=== PATIENT | female | born 1950 | race Caucasian/White ===

== ENCOUNTER → 2017-11-09 09:17 | Outpatient (CLI) | payer MEDICARE, SELFPAY ==
--- NOTE | 2017-11-09 09:26 | RAD_ITS ---
STUDY: X-RAY - PARANASAL SINUSES REASON FOR EXAM: Female, 67 years old. Sinus pressure x1 month, headaches TECHNIQUE: 4 view(s) of the paranasal sinuses were obtained. COMPARISON: None. FINDINGS: There is mucosal thickening of the right maxillary sinus and near complete opacification of the left maxillary sinus. Normal visualized facial bones. The soft tissue structures are unremarkable. RAD/Sinuses min 3 Views IMPRESSION: Bilateral chronic maxillary sinusitis. Electronically Signed: Leo Beltran MD at 20:10 EDT , Service support ,
== END ==
PROVIDERS: Family Provider Family Medicine; PCP Family Medicine
DX: J32.9 Chronic sinusitis, unspecified (principal)
CPT/HCPCS: 70220

== ENCOUNTER → 2017-11-18 15:50 | Outpatient (CLI) | payer MEDICARE, SELFPAY | PROVIDERS: Family Provider Family Medicine; PCP Family Medicine; Visit Provider Otolaryngology | DX: J32.9 Chronic sinusitis, unspecified (principal) | CPT/HCPCS: 87070; 87205 ==

== ENCOUNTER → 2017-11-23 13:16 | Outpatient (CLI) | payer MEDICARE, SELFPAY | PROVIDERS: Family Provider Family Medicine; PCP Family Medicine; Visit Provider Otolaryngology | DX: J32.9 Chronic sinusitis, unspecified (principal) | CPT/HCPCS: 70486 ==

== ENCOUNTER → 2017-11-24 16:35 | Outpatient (CLI) | payer MEDICARE, SELFPAY | PROVIDERS: Family Provider Family Medicine; PCP Family Medicine; Visit Provider Otolaryngology Otolaryngology/Facial Plastic Surgery | DX: J01.90 Acute sinusitis, unspecified (principal) | CPT/HCPCS: 87070; 87205 ==

== ENCOUNTER → 2018-03-02 11:27 | Outpatient (CLI) | payer MEDICARE, SELFPAY ==
[2018-03-02 14:32] LABS: BUN 15 mg/dL (7-18); Glucose 79 mg/dL (74-106)
[2018-03-02 14:33] LABS: Anion Gap 10 (5-15); BUN/Creat Ratio 18.6 RATIO (10-20); Calcium,Total 8.9 mg/dL (8.5-10.1); Chloride 105 mmol/L (98-107); Cholesterol 251 mg/dL (200); EST Glomerular Filtration Rate 76 mL/min (>60); Est Glom Filt Rate - Afr Amer 92 mL/min (>60); High Density Lipoprotein 41 mg/dL; Potassium 4.3 mmol/L (3.5-5.1); Sodium Level 142 mmol/L (136-145); Triglycerides 298 mg/dL; Very Low Density Lipoprotein 60 mg/dL (5-40)
== END ==
PROVIDERS: Family Provider Family Medicine; PCP Family Medicine; Visit Provider Family Medicine
DX: I10 Essential (primary) hypertension (principal)
CPT/HCPCS: 36415; 80048; 80061

== ENCOUNTER → 2018-06-09 10:12 | Outpatient (CLI) | payer MEDICARE, SELFPAY ==
--- NOTE | 2018-06-09 10:16 | BI_ITS ---
MAMMOGRAPHY - BILATERAL SCREENING REASON FOR EXAM: Female, 67 years old. Routine annual screening examination. PERTINENT HISTORY: Non-contributory. TECHNIQUE: Digital bilateral breast tracy (3D mammographic acquisition) in the CC and MLO projections. 2-D mediolateral oblique (MLO) and craniocaudad (CC) views of both breasts were obtained. CAD: Full Field Digital Mammography with Computer Added Detection was performed. COMPARISON: Comparison is made with prior study dated March 09, 2017 and August 23, 2015. FINDINGS: Breast Composition: The breasts are extremely dense, which lowers the sensitivity of mammography. There are no dominant masses or suspicious calcifications. Stable small bilateral axillary lymph nodes. No other significant abnormalities are identified. There has been no significant change since the prior study. BI/SCREENING MAMM (CAD), BILAT IMPRESSION: Stable bilateral screening mammogram. Yearly follow-up mammogram recommended. (A) ASSESSMENT CATEGORY: BIRADS Category 2: Benign. A letter regarding these results will be sent to the patient by the facility within 30 days. Approximately 10% of breast cancers are not detected by mammography. A normal mammogram should not delay biopsy of a clinically suspicious abnormality. [id number] Electronically Signed: Nishant Lim, at 13:44 EST , Service support ,
--- NOTE | 2018-06-09 10:20 | BD_ITS ---
STUDY: DUAL ENERGY X-RAY ABSORPTIOMETRY / DXA REASON FOR EXAM: Female, 67 years old. Early menopause. No loss of height. TECHNIQUE: Bone Mineral Density (BMD) measurements of lumbar spine and bilateral hips were obtained. COMPARISON: Comparison is made with prior study dated August 23, 2015. FINDINGS: Lumbar Spine (L1-L4): g/cm2 (1.248) / T-score (0.7) / Z-score (2.3) Findings are suggestive of normal bone density with a low fracture risk. Left Femur Total: g/cm2 (1.268) / T-score (2.1) / Z-score (3.3) Left Femoral Neck: g/cm2 (1.152) / T-score (0.8) / Z-score (2.4) Right Femur Total: g/cm2 (1.206) / T-score (1.) / Z-score (2.9) Right Femoral Neck: g/cm2 (1.072) / T-score (0.2) / Z-score (1.8) The T-Scores on the most recent prior examination were: Lumbar Spine (L1-L4): There has been improvement of bone density since the previous examination. Left Femur Total: which represents an improvement of 3.6%. Right Femur Total: which represents a worsening of 0.9%. BD/Dexa Bone Density Study IMPRESSION: The patient is considered normal as outlined below according to World Noah Organization (WHO) criteria with a low fracture risk. There has been improvement of bone density since the previous examination. Reference Information: The T-score is the number of standard deviations above or below the standard which is normal for young adults at their peak bone mineral density. The World Health Organization (WHO) interprets the T-scores as follows: Above -1 Normal bone density Between -1 and -2.5 Osteopenia Equal to / or below -2.5 Osteoporosis As a practical clinical guideline, osteopenia may be graded as follows: Mild -1 through -1.5 Moderate -1.6 through -2.0 Severe -2.1 through -2.4 The Z-score is the number of standard deviations above or below age-matched controls. A Z-score of less than -1.5 would be considered abnormal. References: 1. NIH Osteoporosis and Related Bone Diseases http://www.osteo.org 2. International Society for Clinical Densitometry http://www.iscd.org 3. National Osteoporosis Foundation http://www.nof.org Electronically Signed: Nishant Lim, at 9:49 EST , Service support ,
== END ==
PROVIDERS: Family Provider Family Medicine; PCP Family Medicine; Referring Provider Family Medicine; Visit Provider Family Medicine
DX: Z12.31 Encounter for screening mammogram for malignant neoplasm of breast (principal); N95.9 Unspecified menopausal and perimenopausal disorder
CPT/HCPCS: 77063; 77067; 77080

== ENCOUNTER → 2018-12-15 10:11 | Outpatient (CLI) | payer MEDICARE, SELFPAY ==
[2018-12-15 12:57] LABS: Anion Gap 5 (5-15); BUN 11 mg/dL (7-18); BUN/Creat Ratio 13.6 RATIO (10-20); Calcium,Total 8.6 mg/dL (8.5-10.1); Chloride 109 mmol/L (98-107); Creatinine, Serum 0.81 mg/dL (0.55-1.02); EST Glomerular Filtration Rate 75 mL/min (>60); Est Glom Filt Rate - Afr Amer 91 mL/min (>60); Glucose 73 mg/dL (74-106); Sodium Level 142 mmol/L (136-145)
== END ==
PROVIDERS: Family Provider Family Medicine; PCP Family Medicine; Referring Provider Family Medicine; Visit Provider Family Medicine
DX: L65.9 Nonscarring hair loss, unspecified (principal); I10 Essential (primary) hypertension
CPT/HCPCS: 36415; 80048; 84443

== ENCOUNTER → 2019-04-11 10:30 | Outpatient (CLI) | payer MEDICARE, SELFPAY ==
[2019-04-11 12:32] LABS: Anion Gap 5 (5-15); BUN 14 mg/dL (7-18); BUN/Creat Ratio 15.7 RATIO (10-20); Chloride 106 mmol/L (98-107); Creatinine, Serum 0.89 mg/dL (0.55-1.02); EST Glomerular Filtration Rate 67 mL/min (>60); Est Glom Filt Rate - Afr Amer 81 mL/min (>60); Glucose 84 mg/dL (74-106); Potassium 4.3 mmol/L (3.5-5.1); Prolactin 6.5 ng/mL; Sodium Level 142 mmol/L (136-145); Thyroid Stim Hormone (TSH) 2.58 uIU/mL (0.358-3.74)
== END ==
PROVIDERS: Family Provider Family Medicine; PCP Family Medicine; Visit Provider Family Medicine
DX: I10 Essential (primary) hypertension (principal); L65.9 Nonscarring hair loss, unspecified
CPT/HCPCS: 36415; 80048; 84146; 84443

== ENCOUNTER → 2019-06-10 08:20 | Outpatient (CLI) | payer MEDICARE, SELFPAY ==
--- NOTE | 2019-06-10 08:26 | BI_ITS ---
MAMMOGRAPHY - BILATERAL SCREENING REASON FOR EXAM: Female, 68 years old. Routine annual screening examination. PERTINENT HISTORY: No family history of breast cancer TECHNIQUE: Digital bilateral breast apurva (3D mammographic acquisition) in the CC and MLO projections. 2-D mediolateral oblique (MLO) and craniocaudad (CC) views of both breasts were obtained. CAD: Full Field Digital Mammography with Computer Added Detection was performed. COMPARISON: None. FINDINGS: Breast Composition: Extremely dense There are no dominant masses or suspicious calcifications. No other significant abnormalities are identified. BI/SCREEN MAMM (CAD) W/APURVA BILAT IMPRESSION: Stable bilateral screening mammogram. Yearly follow-up mammogram recommended. (A) ASSESSMENT CATEGORY: BIRADS Category 1: Negative. A letter regarding these results will be sent to the patient by the facility within 30 days. Approximately 10% of breast cancers are not detected by mammography. A normal mammogram should not delay biopsy of a clinically suspicious abnormality. [id number] Electronically Signed: Neal Rios, at 15:44 EST Tel , Service support ,
== END ==
PROVIDERS: Family Provider Family Medicine; PCP Family Medicine; Referring Provider Family Medicine; Visit Provider Family Medicine
DX: Z12.31 Encounter for screening mammogram for malignant neoplasm of breast (principal)
CPT/HCPCS: 77063; 77067

== ENCOUNTER → 2019-08-17 15:26 | Outpatient (CLI) | payer MEDICARE, SELFPAY | PROVIDERS: PCP Family Medicine; Referring Provider Family Medicine; Visit Provider Family Medicine | DX: R39.15 Urgency of urination (principal) | CPT/HCPCS: 87086; 87088 ==

== ENCOUNTER → 2019-09-22 | Outpatient (CLI) | payer MEDICARE, SELFPAY | END | disposition home or self-care (01) | LOC: LABSPEC 10:54 | PROVIDERS: PCP Family Medicine; Referring Provider Family Medicine; Visit Provider Family Medicine | DX: R39.15 Urgency of urination (principal) | CPT/HCPCS: 87086; 87088 ==

== ENCOUNTER → 2019-10-31 15:16 | Outpatient (CLI) | payer MEDICARE, SELFPAY | PROVIDERS: PCP Family Medicine; Referring Provider Otolaryngology Otolaryngology/Facial Plastic Surgery; Visit Provider Otolaryngology Otolaryngology/Facial Plastic Surgery | DX: J32.9 Chronic sinusitis, unspecified (principal) | CPT/HCPCS: 87070; 87205 ==

== ENCOUNTER → 2020-01-05 11:15 | Outpatient (CLI) | payer MEDICARE, SELFPAY ==
[2020-01-05 13:09] LABS: Absolute Lymphocyte Count 3.17 X10^3/uL (0.83-4.51); Basophil# 0.05 X10^3/uL; Basophil% 0.6 % (0-1); Eosinophils% 4.8 % (0-5); Hematocrit 38.3 % (37-47); Hemoglobin 12.1 g/dL (12.0-15.0); Lymphocyte # 3.17 X10^3/ul (4.0); Lymphocyte % 37.8 % (19-41); Mean Corp Hgb Conc 31.6 g/dL (32-36); Mean Corpuscular Hgb 28.3 pg (27.0-32.0); Mean Corpuscular Volume 89.5 fL (81-99); Mean Platelet Vol. 10.8 fl (6.2-12.0); Monocyte# 0.76 X10^3/uL; Monocyte% 9.1 % (0-10); NRBC Flagged by Analyzer 0 % (0-5); Neutrophil # 3.98 X10^3/uL (2.7-7.7); Neutrophil % 47.5 % (47-70); Platelet Count 329 K/mm3 (150-450); RBC Distribution Width CV 13.9 % (11.6-14.6); RBC Distribution Width SD 45.3 fl (35.1-43.9); Red Blood Count 4.28 M/mm3 (4.2-5.4); White Blood Count 8.4 K/mm3 (4.4-11.0)
[2020-01-05 13:13] LABS: Erythrocyte Sedimentation Rate 7 mm/hr (0-30)
[2020-01-05 13:49] LABS: Anion Gap 5 (5-15); BUN 13 mg/dL (7-18); BUN/Creat Ratio 13.7 RATIO (10-20); Calcium,Total 9.1 mg/dL (8.5-10.1); Chloride 108 mmol/L (98-107); Cholesterol 300 mg/dL (200); Creatinine, Serum 0.95 mg/dL (0.55-1.02); EST Glomerular Filtration Rate 62 mL/min (>60); Est Glom Filt Rate - Afr Amer 75 mL/min (>60); Glucose 73 mg/dL (74-106); High Density Lipoprotein 36 mg/dL; Potassium 3.9 mmol/L (3.5-5.1); Sodium Level 142 mmol/L (136-145); Thyroid Stim Hormone (TSH) 2.74 uIU/mL (0.358-3.74); Triglycerides 359 mg/dL; Very Low Density Lipoprotein 72 mg/dL (5-40)
== END ==
PROVIDERS: PCP Family Medicine; Referring Provider Family Medicine; Visit Provider Family Medicine
DX: R61 Generalized hyperhidrosis (principal); E78.00 Pure hypercholesterolemia, unspecified; I10 Essential (primary) hypertension
CPT/HCPCS: 36415; 80048; 80061; 84443; 85025; 85652

== ENCOUNTER → 2020-01-27 | Outpatient (CLI) | payer MEDICARE, SELFPAY | END | disposition home or self-care (01) | LOC: LABSPEC 10:54 | PROVIDERS: PCP Family Medicine; Referring Provider Family Medicine; Visit Provider Family Medicine | DX: J20.9 Acute bronchitis, unspecified (principal) | CPT/HCPCS: 87635; U0003 ==

== ENCOUNTER → 2020-02-15 17:17 | Outpatient (CLI) | payer MEDICARE, SELFPAY | PROVIDERS: PCP Family Medicine; Referring Provider Otolaryngology; Visit Provider Otolaryngology | DX: U07.1 COVID-19 (principal) | CPT/HCPCS: 87635; C9803; U0003 ==

== ENCOUNTER → 2020-07-31 11:30 | Outpatient (CLI) | payer MEDICARE, SELFPAY ==
[2020-07-31 16:18] LABS: AST(SGOT) 25 U/L (15-37); Alanine Aminotransfer ALT/SGPT 23 U/L (13-56); Cholesterol 243 mg/dL (200); High Density Lipoprotein 45 mg/dL; Triglycerides 271 mg/dL; Very Low Density Lipoprotein 54 mg/dL (5-40)
== END ==
PROVIDERS: PCP Family Medicine; Visit Provider Family Medicine
DX: E78.5 Hyperlipidemia, unspecified (principal)
CPT/HCPCS: 36415; 80061; 84450; 84460

== ENCOUNTER → 2020-08-29 08:14 | Outpatient (CLI) | payer MEDICARE, SELFPAY ==
--- NOTE | 2020-08-29 08:17 | BI_ITS ---
MAMMOGRAPHY - BILATERAL SCREENING 3-D TOMOSYNTHESIS REASON FOR EXAM: Female, 69 years old. Routine screening PERTINENT HISTORY: No significant family history. TECHNIQUE: 2-D mammograms and 3-D Tomosynthesis of the breast (s) were performed. CAD was performed. COMPARISON: 06/10/19 FINDINGS: The breast composition is heterogeneously dense that can obscure small breast masses. Scattered benign calcifications are seen. No dense spiculated masses or suspicious microcalcifications are identified. No architectural distortion is identified. There is no skin thickening or retraction. There has been no significant change since the prior study. BI/SCRN MAMM (CAD)W/APURVA BILAT IMPRESSION: No mammographic signs of malignancy. Routine yearly mammograms recommended. ASSESSMENT CATEGORY: BIRADS Category 2: Benign. A letter regarding these results will be sent to the patient by the facility within 30 days. FOLLOW UP RECOMMENDATION: Yearly follow up mammogram recommended. (A) Approximately 10% of breast cancers are not detected by mammography. A normal mammogram should not delay biopsy of a clinically suspicious abnormality. Electronically Signed: Ciaran Griffin MD at 9:40 EDT , Service support ,
== END ==
PROVIDERS: PCP Family Medicine; Referring Provider Family Medicine; Visit Provider Family Medicine
DX: Z12.31 Encounter for screening mammogram for malignant neoplasm of breast (principal)
CPT/HCPCS: 77063; 77067

== ENCOUNTER → 2020-11-07 16:39 | Outpatient (CLI) | payer MEDICARE, SELFPAY ==
[2020-11-07 18:14] LABS: AST(SGOT) 21 U/L (15-37); Alanine Aminotransfer ALT/SGPT 25 U/L (13-56); Cholesterol 183 mg/dL (200); High Density Lipoprotein 45 mg/dL; Triglycerides 260 mg/dL; Very Low Density Lipoprotein 52 mg/dL (5-40)
== END ==
PROVIDERS: PCP Family Medicine; Referring Provider Family Medicine; Visit Provider Family Medicine
DX: E78.5 Hyperlipidemia, unspecified (principal)
CPT/HCPCS: 36415; 80061; 84450; 84460

== ENCOUNTER → 2021-01-03 16:24 | Outpatient (CLI) | payer MEDICARE, SELFPAY | PROVIDERS: PCP Family Medicine; Referring Provider Family Medicine; Visit Provider Family Medicine | DX: Z20.822 Contact with and (suspected) exposure to COVID-19 (principal) | CPT/HCPCS: 87635; U0005; U0003 ==

== ENCOUNTER → 2021-12-10 | Outpatient (CLI) | payer MEDICARE, SELFPAY ==
--- NOTE | 2021-12-10 10:07 | BI_ITS ---
MAMMOGRAPHY - BILATERAL SCREENING REASON FOR EXAM: Female, 71 years old. Routine annual screening examination. PERTINENT HISTORY: Non-contributory. TECHNIQUE: Digital bilateral breast apurva (3D mammographic acquisition) in the CC and MLO projections. 2-D mediolateral oblique (MLO) and craniocaudad (CC) views of both breasts were obtained. CAD: Full Field Digital Mammography with Computer Added Detection was performed. COMPARISON: Comparison is made with prior study dated 08/29/2020 and 06/10/2019. FINDINGS: Breast Composition: The breasts are extremely dense, which lowers the sensitivity of mammography. There are no dominant masses or suspicious calcifications. Stable benign appearing bilateral axillary lymph nodes. No other significant abnormalities are identified. There has been no significant change since the prior study. BI/SCRN MAMM (CAD)W/APURVA BILAT IMPRESSION: Stable bilateral screening mammogram. Yearly follow-up mammogram recommended. (A) ASSESSMENT CATEGORY: BIRADS Category 2: Benign. A letter regarding these results will be sent to the patient by the facility within 30 days. Approximately 10% of breast cancers are not detected by mammography. A normal mammogram should not delay biopsy of a clinically suspicious abnormality. [id number] Electronically Signed: Nishant Lim MD at 11:02 EDT ,
--- NOTE | 2021-12-10 10:09 | BD_ITS ---
STUDY: DUAL ENERGY X-RAY ABSORPTIOMETRY / DXA REASON FOR EXAM: Female, 71 years old. V76.12ScreeningBONE DENSITY REASON FOR EXAM TECHNIQUE: Bone Mineral Density (BMD) measurements of lumbar spine and bilateral hips were obtained. COMPARISON: Comparison is made with prior study dated 06/09/2018. FINDINGS: Lumbar Spine (L1-L4): g/cm2 (1.127) / T-score (1.0) / Z-score (3.1) Findings are suggestive of normal bone density with a low fracture risk. Left Femur Total: g/cm2 (1.116) / T-score (1.4) / Z-score (2.9) Left Femoral Neck: g/cm2 (1.006) / T-score (1.4) / Z-score (3.2) Right Femur Total: g/cm2 (1.120) / T-score (1.5) / Z-score (3.0) Right Femoral Neck: g/cm2 (0.916) / T-score (0.6) / Z-score (2.4) The T-Scores on the most recent prior examination were: Lumbar Spine (L1-L4): There has been worsening of bone density since the previous examination. Left Femur Total: which represents a worsening of 6.6%. Right Femur Total: which represents a worsening of 1.3%. BD/Dexa Bone Density Study IMPRESSION: The patient is considered normal as outlined below according to World [employer] Organization (WHO) criteria with a low fracture risk. There has been worsening of bone density since the previous examination. Reference Information: The T-score is the number of standard deviations above or below the standard which is normal for young adults at their peak bone mineral density. The World Health Organization (WHO) interprets the T-scores as follows: Above -1 Normal bone density Between -1 and -2.5 Osteopenia Equal to / or below -2.5 Osteoporosis As a practical clinical guideline, osteopenia may be graded as follows: Mild -1 through -1.5 Moderate -1.6 through -2.0 Severe -2.1 through -2.4 The Z-score is the number of standard deviations above or below age-matched controls. A Z-score of less than -1.5 would be considered abnormal. References: 1. NIH Osteoporosis and Related Bone Diseases www osteo.org 2. International Society for Clinical Densitometry www iscd.org 3. National Osteoporosis Foundation www nof.org Electronically Signed: Nishant Lim MD at 12:34 EDT ,
== END | disposition home or self-care (01) ==
LOC: OPBD 10:02
PROVIDERS: PCP Family Medicine; Visit Provider Family Medicine
DX: Z12.31 Encounter for screening mammogram for malignant neoplasm of breast (principal); Z13.820 Encounter for screening for osteoporosis; M81.0 Age-related osteoporosis without current pathological fracture
CPT/HCPCS: 77063; 77067; 77080

== ENCOUNTER 2022-01-10 16:09 | Observation (INO) | payer MEDICARE, SELFPAY ==
[2022-01-10 16:10] VITALS: BP 178/74; PULSE 78; RESP 18; TEMP 36.3; O2SAT 97; BMI 30.8
--- NOTE | 2022-01-10 16:55 | EKG12_ITS ---
Test Reason : Blood Pressure : / mmHG Vent. Rate : 069 BPM Atrial Rate : 069 BPM P-R Int : 180 ms QRS Dur : 078 ms QT Int : 380 ms P-R-T Axes : 066 048 107 degrees QTc Int : 407 ms Normal sinus rhythm ST & T wave abnormality, consider lateral ischemia Abnormal ECG Confirmed by CUAUHTEMOC ROSENTHAL, JARVIS ([id number]), visual effects editor REGINALD HARO ([id number]) on 01/13/2022 10:10:48 AM Referred By: DARLIN Confirmed By:JARVIS POSADAS MD
[2022-01-10 16:57] VITALS: BP 164/66; PULSE 72; RESP 18; O2SAT 97; BMI 31.5
--- NOTE | 2022-01-10 16:58 | CT_ITS ---
We are attempting to reach an attending provider to discuss findings. An addendum with communication details will be sent when the communication is complete. EXAM: CT ANGIOGRAPHY HEAD AND NECK WITH INTRAVENOUS CONTRAST CLINICAL INDICATION: Neuro deficit, acute, stroke suspected TECHNIQUE: [place] [facility] [place]/head and neck CT angiography protocol performed with intravenous contrast. This CT exam was performed using one or more of the following dose reduction techniques: automated exposure control, adjustment of the mA and/or kV according to patient size, and/or use of iterative reconstruction technique. This report was created using [employer] report [employer] technology. MIP reconstructed images were created and reviewed. CONTRAST: IV 100mL [id number]-[id number] RADIATION DOSE: CTDIvol = 26.74 mGy, DLP = 1478.39 mGy-cm COMPARISON: 8..15 FINDINGS: HEAD: RIGHT ANTERIOR CEREBRAL ARTERY: Unremarkable. No significant stenosis at the visualized segments. Anterior communicating artery is present. No aneurysm. RIGHT MIDDLE CEREBRAL ARTERY: There is severe narrowing of the right M2 branch with > than 75% cross sectional diameter stenosis. ALL ABOVE CRITERIA BY NASCET. No aneurysm. RIGHT POSTERIOR CEREBRAL ARTERY: Unremarkable. No occlusion or significant stenosis. No aneurysm. RIGHT INTRACRANIAL INTERNAL CAROTID ARTERY: See below. RIGHT INTRACRANIAL VERTEBRAL ARTERY: Unremarkable. No significant stenosis. No dissection or occlusion. LEFT ANTERIOR CEREBRAL ARTERY: Unremarkable. No significant stenosis at the visualized segments. No aneurysm. LEFT MIDDLE CEREBRAL ARTERY: There is diffuse narrowing of the left M1 branch with a stenosis of >70%. ALL ABOVE CRITERIA BY NASCET. No aneurysm. LEFT POSTERIOR CEREBRAL ARTERY: Unremarkable. No occlusion or significant stenosis. No aneurysm. LEFT INTRACRANIAL INTERNAL CAROTID ARTERY: See below. LEFT INTRACRANIAL VERTEBRAL ARTERY: Unremarkable. No significant stenosis. No dissection or occlusion. BASILAR ARTERY: Unremarkable. No significant stenosis. No aneurysm. OTHER VASCULATURE: There is mild atherosclerotic plaque formation of the origin of the left internal carotid artery with less than 50% cross sectional diameter stenosis. ALL ABOVE CRITERIA BY NASCET. There is mild atherosclerotic plaque formation of the origin of the right internal carotid artery with less than 50% cross sectional diameter stenosis. ALL ABOVE CRITERIA BY NASCET. There is calcified plaque formation of the right cavernous carotid artery, with a mild stenosis (less than 50%). ALL ABOVE CRITERIA BY NASCET. NECK: RIGHT COMMON CAROTID ARTERY: Unremarkable. No significant stenosis. No dissection or occlusion. RIGHT EXTRACRANIAL INTERNAL CAROTID ARTERY: See above. RIGHT EXTERNAL CAROTID ARTERY: Unremarkable. No occlusion. RIGHT EXTRACRANIAL VERTEBRAL ARTERY: Unremarkable. No significant stenosis. No dissection or occlusion. LEFT COMMON CAROTID ARTERY: Unremarkable. No significant stenosis. No dissection or occlusion. LEFT EXTRACRANIAL INTERNAL CAROTID ARTERY: See above. LEFT EXTERNAL CAROTID ARTERY: Unremarkable. No occlusion. LEFT EXTRACRANIAL VERTEBRAL ARTERY: Unremarkable. No significant stenosis. No dissection or occlusion. THYROID: The thyroid is heterogenous. It contains nodules. This should be further evaluated with ultrasound. This can be performed as an outpatient. GREAT VESSELS OF AORTIC ARCH: There is calcified plaque formation of the left cavernous carotid artery, with a mild stenosis (less than 50%). ALL ABOVE CRITERIA BY NASCET. LUNG APICES: Unremarkable as visualized. HEAD and NECK: BONES/JOINTS: Unremarkable. No discrete lytic or blastic abnormalities. SOFT TISSUES: Unremarkable. CAROTID STENOSIS REFERENCE USING NASCET CRITERIA: % ICA stenosis = (1 - narrowest ICA diameter/diameter of distal cervical ICA) x 100. Mild - <50% stenosis. Moderate - 50-69% stenosis. Severe - 70-94% stenosis. Near occlusion - 95-99% stenosis. Occluded - 100% stenosis. CT/STROKE CTA Head AND Neck W/Con IMPRESSION: 1. There is severe narrowing of the right M2 branch with > than 75% cross sectional diameter stenosis. ALL ABOVE CRITERIA BY NASCET. 2. There is diffuse narrowing of the left M1 branch with a stenosis of >70%. ALL ABOVE CRITERIA BY NASCET. 3. There is mild atherosclerotic plaque formation of the origin of the left internal carotid artery with less than 50% cross sectional diameter stenosis. ALL ABOVE CRITERIA BY NASCET. 4. There is mild atherosclerotic plaque formation of the origin of the right internal carotid artery with less than 50% cross sectional diameter stenosis. ALL ABOVE CRITERIA BY NASCET. 5. There is calcified plaque formation of the right cavernous carotid artery, with a mild stenosis (less than 50%). ALL ABOVE CRITERIA BY NASCET. 6. There is calcified plaque formation of the left cavernous carotid artery, with a mild stenosis (less than 50%). ALL ABOVE CRITERIA BY NASCET. 7. The thyroid is heterogenous. It contains nodules. This should be further evaluated with ultrasound. This can be performed as an outpatient. Electronically Signed: Isaac Neff MD at 18:37 EDT ,
--- NOTE | 2022-01-10 16:59 | EDS_ITS ---
HPI History of Present Illness Chief Complaint: Neuro S/Sx Informant: patient Narrative Narrative: 71-year-old female presenting to the emergency department with a chief complaint of vision change. Patient states that about 2 days ago she noticed a spider in her field of vision. She contacted her physical therapy asst and was sent to [facility]. 2 physical therapy asst felt that she had developed a small stroke and that her eye exam was otherwise negative. They scheduled a carotid ultrasound as well as a MRI. She states that since the carotid ultrasound her vision seems worse. She describes a [id number] checkered appearance on the outer and central aspects of her vision. Today she noticed that they got worse and came to emergency. She notes a history of hypertension hypercholesterolemia. She denies any arm or leg symptoms. She denies any speech symptoms. She notes a left parietal headache. She denies any head trauma. She takes a low-dose aspirin. [facility] Medical History (Updated 01/10/22 @ 19:[address] Reynaldo Bender, ) Hypercholesterolemia Hypertension Home Medications biotin 1 mg tablet 2 mg PO DAILY SUPPLEMENT 06/12/14 [History Last Taken 01/09/22] pregabalin 75 mg capsule 75 mg PO BID PAIN 06/12/14 [History Last Taken 01/10/22] Prevagen 20 mg PO/SL DAILY PRN MEMORY 01/10/22 [History Last Taken 01/10/22] aspirin 81 mg tablet,delayed release 81 mg PO DAILY HEART HEALTH 01/10/22 [History Last Taken 01/09/22] duloxetine 60 mg capsule,delayed release 60 mg PO DAILY 01/10/22 [History Last Taken 01/09/22] esomeprazole magnesium 40 mg capsule,delayed release 40 mg PO DAILY GERD 01/10/22 [History Last Taken 01/09/22] estradiol 1 mg tablet 1 mg PO DAILY 01/10/22 [History Last Taken 01/09/22] fluorouracil 5 % topical cream 1 applic topical DAILY CANCER 01/10/22 [History Last Taken Unknown] fluticasone propionate 50 mcg/actuation nasal spray,suspension (Flonase Allergy Relief) 50 mcg intranasal DAILY PRN PRN ALLERGIES 01/10/22 [History Last Taken 01/10/22] glycopyrrolate 1 mg tablet 1 mg PO QHS STOMACH 01/10/22 [History Last Taken 01/09/22] glycopyrrolate 1 mg tablet 2 mg PO DAILY STOMACH 01/10/22 [History Last Taken 01/10/22] losartan 50 mg tablet 50 mg PO DAILY BP 01/10/22 [History Last Taken 01/09/22] metoprolol succinate 100 mg tablet,extended release 24 hr 100 mg PO DAILY BP [History Last Taken 01/09/22] pediatric multivit no.17-ferrous fumarate 15 mg iron chewable tablet 1 tab PO DAILY SUPPLEMENT 01/10/22 [History Last Taken 01/10/22] rosuvastatin 20 mg tablet 20 mg PO DAILY CHOLESTEROL 01/10/22 [History Last Taken 01/10/22] Allergy/AdvReac Type Severity Reaction Status Date / Time acetaminophen Allergy Unknown Verified 12/03/14 20:11 [From Darvocet-N] propoxyphene napsylate Allergy Unknown Verified 12/03/14 20:11 [From Darvocet-N] rosuvastatin calcium Allergy Unknown Verified 12/03/14 20:11 [From Crestor] Social History household members: spouse current gender identity: female Smoking Status: Never smoker substance use type: does not use ROS ROS ED Constitutional Constitutional ED: Denies chills, fever(s) or weight loss Eyes Eyes: Reports change in vision; Denies blurry vision or diplopia ENT ENT ED: Denies ear pain, rhinorrhea or sore throat Cardiovascular Cardiovascular: Denies chest pain, orthopnea, palpitations or racing heartbeat Respiratory/Chest Respiratory/Chest: Denies cough, dyspnea or orthopnea Gastrointestinal Gastrointestinal: Denies abdominal pain, diarrhea, nausea or vomiting Genitourinary Genitourinary ED: Denies dysuria, hematuria or urinary frequency Musculoskeletal Musculoskeletal: Denies arthralgias or myalgias Integumentary Denies abscess or rash Neurologic Neurologic: Reports headache(s); Denies weakness Psychiatric Psychiatric: Denies anxiety, depression, suicidal ideation or suicidal thoughts Endocrine Endocrinology: Denies polydipsia, polyphagia or polyuria Allergic/Immunologic Allergic/Immunologic ED: Denies mouth swelling, tongue swelling or urticaria EXAM Physical Exam Const Vital Signs: 01/10/22 16:10 01/10/22 16:57 01/10/22 16:59 Temperature 97.3 F L Temperature Source Temporal Pulse Rate 78 72 Respiratory Rate 18 18 Blood Pressure 178/74 H 164/66 H Blood Pressure Mean 108 98 Pulse Ox 97 97 Oxygen Delivery Method Room Air Room Air Room Air Positive well nourished and well developed General Appearance ED: well developed HEENT Reports normocephalic, head/scalp atraumatic and moist mucous membranes Eyes PERRL and EOMs intact bilaterally Eyes Narrative: Nondilated funduscopic exam appears negative. Neck no lymphadenopathy, supple and no JVD Resp normal respiratory effort and clear to auscultation bilaterally Cardio regular rate, regular rhythm and no murmurs GI normal to inspection, nondistended, normoactive bowel sounds and non-tender Palpation: soft Back/Spine no CVA tenderness and normal ROM Extremity normal to inspection General Extremety ED: Negative for edema General Extremity: Negative for edema Neuro oriented x3 and CN's II-XII intact bilaterally Sensorium / Orientation: alert Motor Exam: strength 5/5 throughout Psych mental status grossly normal Mood & Affect: Negative for depressed or tearful Skin no rashes or lesions noted and no wounds MDM MDM MDM Narrative Medical decision making narrative: UsePatient blood work is unremarkable. CTA of the head and neck was obtained. This showed narrowing of the peripheral vessels including the M2 branch. I discussed the case with on-call neurology from [facility] who recommends admission for MRI. I will speak with the hospitalist regarding admission Lab Data Attestation: I reviewed the patient's lab results. Labs: Laboratory Results - last 24 hr 01/10/22 01/10/22 01/10/22 17:00 17:00 17:00 WBC 10.4 RBC 4.41 Hgb 13.4 Hct 40.3 MCV 91.4 MCH 30.4 MCHC 33.3 RDW Std Deviation 42.8 RDW Coeff of Pavan 12.8 Plt Count 324 MPV 10.9 Immature Gran % (Auto) 0.400 Neut % (Auto) 51.3 Lymph % (Auto) 37.3 [place] % (Auto) 8.9 Eos % (Auto) 1.8 Baso % (Auto) 0.3 Absolute Neuts (auto) 5.3 Absolute Lymphs (auto) 3.88 Nucleated RBC % 0 PT 13.1 INR 1.0 APTT 29.5 Sodium 142 Potassium 4.2 Chloride 106 Carbon Dioxide 30.0 Anion Gap 6 BUN 14 Creatinine 0.95 Estim Creat Clear Calc 45.58 Est GFR (MDRD) Af Amer 75 Est GFR (MDRD) Non-Af 62 BUN/Creatinine Ratio 14.7 Glucose 85 Calcium 9.8 Troponin I High Sens 6 Radiography Diagnostic Testing: Clinical Impression(s) from Imaging Studies Head/Neck CTA 01/10/22 16:58 IMPRESSION: 1. There is severe narrowing of the right M2 branch with > than 75% cross sectional diameter stenosis. ALL ABOVE CRITERIA BY NASCET. 2. There is diffuse narrowing of the left M1 branch with a stenosis of >70%. ALL ABOVE CRITERIA BY NASCET. 3. There is mild atherosclerotic plaque formation of the origin of the left internal carotid artery with less than 50% cross sectional diameter stenosis. ALL ABOVE CRITERIA BY NASCET. 4. There is mild atherosclerotic plaque formation of the origin of the right internal carotid artery with less than 50% cross sectional diameter stenosis. ALL ABOVE CRITERIA BY NASCET. 5. There is calcified plaque formation of the right cavernous carotid artery, with a mild stenosis (less than 50%). ALL ABOVE CRITERIA BY NASCET. 6. There is calcified plaque formation of the left cavernous carotid artery, with a mild stenosis (less than 50%). ALL ABOVE CRITERIA BY NASCET. 7. The thyroid is heterogenous. It contains nodules. This should be further evaluated with ultrasound. This can be performed as an outpatient. Electronically Signed: Isaac Neff MD at 18:37 EDT Reading Location ID and State: [facility] / [place] , Service support , ADDENDUM: 01/10/22 3300 IMPRESSION: 1. There is severe narrowing of the right M2 branch with > than 75% cross sectional diameter stenosis. ALL ABOVE CRITERIA BY NASCET. 2. There is diffuse narrowing of the left M1 branch with a stenosis of >70%. ALL ABOVE CRITERIA BY NASCET. 3. There is mild atherosclerotic plaque formation of the origin of the left internal carotid artery with less than 50% cross sectional diameter stenosis. ALL ABOVE CRITERIA BY NASCET. 4. There is mild atherosclerotic plaque formation of the origin of the right internal carotid artery with less than 50% cross sectional diameter stenosis. ALL ABOVE CRITERIA BY NASCET. 5. There is calcified plaque formation of the right cavernous carotid artery, with a mild stenosis (less than 50%). ALL ABOVE CRITERIA BY NASCET. 6. There is calcified plaque formation of the left cavernous carotid artery, with a mild stenosis (less than 50%). ALL ABOVE CRITERIA BY NASCET. 7. The thyroid is heterogenous. It contains nodules. This should be further evaluated with ultrasound. This can be performed as an outpatient. N.B. : The above Results were Read Back by Isaac Neff MD to Reynaldo Bedner MD, and understanding confirmed on 01/10/2022 18:37:44 (ET). Electronically Signed: Isaac Neff MD at 18:37 EDT , Chest X-Ray 01/10/22 17:26 IMPRESSION: There are no acute findings. Electronically Signed: Isaac Neff MD at 17:43 EDT , EKG Initial EKG: Attestation: I personally reviewed and interpreted this EKG as follows: Comments: Normal sinus rhythm with a ventricular rate of 69 bpm. Discharge Plan Dx/Rx/DC Orders Clinical Impression: Hypertension, Hypercholesterolemia, Alteration in vision Disposition Disposition: Acute Care Hospital [facility] NIHSS NIHSS 1a. Level of Consciousness: Alert; keenly responsive 1b. LOC Questions: Answers BOTH questions correctly. 1c. LOC Commands: Performs both tasks correctly. 2. Best Gaze: Normal 3. Visual: Partial hemianopia 4. Facial Palsy: Normal symmetrical movements 5a. Left Arm: No drift; arm holds 90 (or 45) degrees for full 10 seconds 5b. Right Arm: No drift; arm holds 90 (or 45) degrees for full 10 seconds 6a. Left Leg: No drift; leg holds 30-degree position for full 5 seconds 6b. Right Leg: No drift; leg holds 30-degree position for full 5 seconds 7. Limb Ataxia: Absent 8. Sensory: Normal; no sensory loss 9. Best Language: No aphasia; normal 10. Dysarthria: Normal 11. Extinction and Inattention: No abnormality Total: 1 Stroke Questions Stroke Team Activated: No a.Reviewed Inclusion/Exclusion criteria: Yes Was Patient considered for Endovascular Intervention?: No IV TPA Administered: No No contraindications for IV Alteplase (t-PA) administration.: Yes Risks, Benefits, Alternatives Discussed: Yes Not given: Patient refusal: No
[2022-01-10 17:00] VITALS: BMI 30.7
[2022-01-10 17:12] LABS: Absolute Lymphocyte Count 3.88 X10^3/uL (0.83-4.51); Absolute Neutrophil Count 5.3 X10^3/uL (2.0-7.7); Basophil# 0.03 X10^3/uL; Basophil% 0.3 % (0-1); Eosinophil# 0.19 X10^3/uL; Eosinophils% 1.8 % (0-5); Hematocrit 40.3 % (37-47); Hemoglobin 13.4 g/dL (12.0-15.0); Lymphocyte # 3.88 X10^3/ul (0.83-4.51); Lymphocyte % 37.3 % (19-41); Mean Corp Hgb Conc 33.3 g/dL (32-36); Mean Corpuscular Hgb 30.4 pg (27.0-32.0); Mean Corpuscular Volume 91.4 fL (81-99); Mean Platelet Vol. 10.9 fl (6.2-12.0); Monocyte# 0.93 X10^3/uL; Monocyte% 8.9 % (0-10); NRBC Flagged by Analyzer 0 % (0-5); Neutrophil # 5.34 X10^3/uL (2.7-7.7); Neutrophil % 51.3 % (47-70); Platelet Count 324 K/mm3 (150-450); RBC Distribution Width CV 12.8 % (11.6-14.6); RBC Distribution Width SD 42.8 fl (35.1-43.9); Red Blood Count 4.41 M/mm3 (4.2-5.4); White Blood Count 10.4 K/mm3 (4.4-11.0)
[2022-01-10 17:24] LABS: Prothrombin Time (Protime)PT. 13.1 SECONDS (11.7-14.9)
[2022-01-10 17:25] LABS: Partial Thromboplast Time 29.5 Seconds (24.1-36.2)
--- NOTE | 2022-01-10 17:26 | RAD_ITS ---
STUDY: X-RAY CHEST REASON FOR EXAM: Female, 71 years old. CHEST PAIN Neuro deficit, acute, stroke suspected TECHNIQUE: XR Chest 1 View COMPARISON: None FINDINGS: There is no demonstrated pleural abnormality. Normal size heart. Normal mediastinum and jon. Normal visualized pulmonary arteries. Normal visualized aortic arch and descending thoracic aorta. Normal visualized thoracic spine. Normal visualized ribs, clavicles, and shoulders. There is no demonstrated abnormality of the visualized soft tissue structures of the upper abdomen. RAD/Chest 1 View IMPRESSION: There are no acute findings. Electronically Signed: Isaac Neff MD at 17:43 EDT ,
[2022-01-10 18:08] LABS: Anion Gap 6 (5-15); BUN 14 mg/dL (7-18); BUN/Creat Ratio 14.7 RATIO (10-20); Calcium,Total 9.8 mg/dL (8.5-10.1); Chloride 106 mmol/L (98-107); Creatinine, Serum 0.95 mg/dL (0.55-1.02); EST Glomerular Filtration Rate 62 mL/min (>60); Est Glom Filt Rate - Afr Amer 75 mL/min (>60); Estimated Creatinine Clearance 45.58 ml/min; Glucose 85 mg/dL (74-106); Potassium 4.2 mmol/L (3.5-5.1); Sodium Level 142 mmol/L (136-145); Troponin-I HS 6 pg/mL (3.0-54.0)
--- NOTE | 2022-01-10 19:59 | HP.PCM.HOS_ITS ---
HPI - General General Date of Admission: 01/10/22 Date of Service: 01/10/22 Chief Complaint: Vision changes HPI Narrative DERRICK SALVADOR, is a 71 F with a significant history of hyperlipidemia; hypertension and GERD who presents to the emergency department with vision changes that started 4 to 5 days ago. While playing golf she could not see the ball again and later had to strain her eyes to see the ball. Reportedly she blacked out. She reports blurry vision. Also , she reports seeing objects in her vision field that are not really there. A day before presentation she went to see her regular eye doctor who thought that there was not wrong with her eyes. Her regular eye doctor sent her to see a patient's eye surgeon who previo usly had done cataract surgery on patient eyes. Patient's eye surgeon also agreed that there was nothing wrong with patient eyes and that patient may be having a stroke. Carotid ultrasound was scheduled and done on 01/10/2022. When patient went home after the carotid ultrasound she felt that her eye symptoms was getting worse and she was crying. Although an MRI was scheduled for Thursday at 01/13/2022 patient came to the emergency department because of worsening of her symptoms. She denies any speech changes. She denies any weakness. [facility] Medical History Hypercholesterolemia Hypertension Home Medications biotin 1 mg tablet 2 mg PO DAILY SUPPLEMENT 06/12/14 [History Last Taken 01/09/22] pregabalin 75 mg capsule 75 mg PO BID PAIN 06/12/14 [History Last Taken 01/10/22] Prevagen 20 mg PO/SL DAILY PRN MEMORY 01/10/22 [History Last Taken 01/10/22] aspirin 81 mg tablet,delayed release 81 mg PO DAILY HEART HEALTH 01/10/22 [Histo ry Last Taken 01/09/22] duloxetine 60 mg capsule,delayed release 60 mg PO DAILY 01/10/22 [History Last Taken 01/09/22] esomeprazole magnesium 40 mg capsule,delayed release 40 mg PO DAILY GERD 01/10/22 [History Last Taken 01/09/22] estradiol 1 mg tablet 1 mg PO DAILY 01/10/22 [History Last Taken 01/09/22] fluorouracil 5 % topical cream 1 applic topical DAILY CANCER 01/10/22 [History Last Taken Unknown] fluticasone propionate 50 mcg/actuation nasal spray,suspension (Flonase Allergy Relief) 50 mcg intranasal DAILY PRN PRN ALLERGIES 01/10/22 [History Last Taken 01/10/22] glycopyrrolate 1 mg tablet 1 mg PO QHS STOMACH 01/10/22 [History Last Taken 01/09/22] glycopyrrolate 1 mg tablet 2 mg PO DAILY STOMACH 01/10/22 [History Last Taken 01/10/22] losartan 50 mg tablet 50 mg PO DAILY BP 01/10/22 [History Last Taken 01/09/22] metoprolol succinate 100 mg tablet,extended release 24 hr 100 mg PO DAILY BP 01/10/22 [History Last Taken 01/09/22] pediatric multivit no.17-ferrous fumarate 15 mg iron chewable tablet 1 tab PO DAILY SUPPLEMENT 01/10/22 [History Last Taken 01/10/22] rosuvastatin 20 mg tablet 20 mg PO DAILY CHOLESTEROL 01/10/22 [History Last Taken 01/10/22] Allergy/AdvReac Type Severity Reaction Status Date / Time acetaminophen Allergy Unknown Verified 12/03/14 20:11 [From Darvocet-N] propoxyphene napsylate Allergy Unknown Verified 12/03/14 20:11 [From Darvocet-N] rosuvastatin calcium Allergy Unknown Verified 12/03/14 20:11 [From Crestor] Family History Other Alcoholism Cancer Surgical History H/O arthroscopic knee surgery H/O: hysterectomy Hx of cataract surgery Social History household members: spouse current gender identity: female Smoking Status: Never smoker substance use type: does not use ROS ROS Narrative Pertinent positives and pertinent negatives as noted in HPI. All other systems were reviewed and are negative Vital Signs Vital Signs Vital Signs: 01/10/22 16:10 01/10/22 16:57 01/10/22 16:59 Temperature 97.3 F L Temperature Source Temporal Pulse Rate 78 72 Respiratory Rate 18 18 Blood Pressure 178/74 H 164/66 H Blood Pressure Mean 108 98 Pulse Ox 97 97 Oxygen Delivery Method Room Air Room Air Room Air Weight Weight: 80.7 kg Body Mass Index (BMI) 31.5 Physical Exam Narrative Physical exam: General: Well-nourished, well-developed. Head: Normocephalic, atraumatic, no tenderness Eyes: Vision is grossly intact. EOMI ENT, no trauma, moist mucous membranes, no rhinorrhea Neck: Nontender, full range of motion CVS: Regular rate and rhythm. S1-S2 present. No murmur, gallop or rub. Respiratory : clear to auscultation bilaterally, chest wall nontender, no wheezing Abdomen: Soft, nontender, nondistended, normal bowel sounds, no masses : Deferred Back: Nontender, no CVA tenderness, no midline spinal tenderness, deformities, step-offs Extremities: Nontender full range of motion, no trauma Skin: Normal color, no trauma, abrasions Neuro: Alert, oriented, cranial nerves II through XII grossly intact except Bilateral eye right upper vision quadrantanopia. Strength 5 out of 5 throughout. No dysmetria. Psychiatry: Normal mood. Normal affect. Not depressed. Not anxious. Results Lab / Micro Data Result Diagrams: 01/10/22 17:00 01/10/22 17:00 Labs: Laboratory Results - last 24 hr 01/10/22 17:00: WBC 10.4, RBC 4.41, Hgb 13.4, Hct 40.3, MCV 91.4, MCH 30.4, MCHC 33.3, RDW Std Deviation 42.8, RDW Coeff of [place]avan 12.8, Plt Count 324, MPV 10.9, Immature Gran % (Auto) 0.400, Neut % (Auto) 51.3, Lymph % (Auto) 37.3, [place] % (Auto) 8.9, Eos % (Auto) 1.8, Baso % (Auto) 0.3, Absolute Neuts (auto) 5.3, Absolute Lymphs (auto) 3.88, Nucleated RBC % 0 01/10/22 17:00: PT 13.1, INR 1.0, APTT 29.5 01/10/22 17:00: Sodium 142, Potassium 4.2, Chloride 106, Carbon Dioxide 30.0, Anion Gap 6, BUN 14, Creatinine 0.95, Estim Creat Clear Calc 45.58, Est GFR (MDRD) Af Amer 75, Est GFR (MDRD) Non-Af 62, BUN/Creatinine Ratio 14.7, Glucose 85, Calcium 9.8, Troponin I High Sens 6 Radiology Impression Head/Neck CTA 01/10/22 16:58 IMPRESSION: 1. There is severe narrowing of the right M2 branch with > than 75% cross sectional diameter stenosis. ALL ABOVE CRITERIA BY NASCET. 2. There is diffuse narrowing of the left M1 branch with a stenosis of >70%. ALL ABOVE CRITERIA BY NASCET. 3. There is mild atherosclerotic plaque formation of the origin of the left internal carotid artery with less than 50% cross sectional diameter stenosis. ALL ABOVE CRITERIA BY NASCET. 4. There is mild atherosclerotic plaque formation of the origin of the right internal carotid artery with less than 50% cross sectional diameter stenosis. ALL ABOVE CRITERIA BY NASCET. 5. There is calcified plaque formation of the right cavernous carotid artery, with a mild stenosis (less than 50%). ALL ABOVE CRITERIA BY NASCET. 6. There is calcified plaque formation of the left cavernous carotid artery, with a mild stenosis (less than 50%). ALL ABOVE CRITERIA BY NASCET. 7. The thyroid is heterogenous. It contains nodules. This should be further evaluated with ultrasound. This can be performed as an outpatient. Electronically Signed: Isaac Neff MD at 18:37 EDT , ADDENDUM: 01/10/22 0164 IMPRESSION: 1. There is severe narrowing of the right M2 branch with > than 75% cross sectional diameter stenosis. ALL ABOVE CRITERIA BY NASCET. 2. There is diffuse narrowing of the left M1 branch with a stenosis of >70%. ALL ABOVE CRITERIA BY NASCET. 3. There is mild atherosclerotic plaque formation of the origin of the left internal carotid artery with less than 50% cross sectional diameter stenosis. ALL ABOVE CRITERIA BY NASCET. 4. There is mild atherosclerotic plaque formation of the origin of the right internal carotid artery with less than 50% cross sectional diameter stenosis. ALL ABOVE CRITERIA BY NASCET. 5. There is calcified plaque formation of the right cavernous carotid artery, with a mild stenosis (less than 50%). ALL ABOVE CRITERIA BY NASCET. 6. There is calcified plaque formation of the left cavernous carotid artery, with a mild stenosis (less than 50%). ALL ABOVE CRITERIA BY NASCET. 7. The thyroid is heterogenous. It contains nodules. This should be further evaluated with ultrasound. This can be performed as an outpatient. N.B. : The above Results were Read Back by Isaac Neff MD to Reynaldo Bender MD, and understanding confirmed on 01/10/2022 18:37:44 (ET). Electronically Signed: Isaac Neff MD at 18:37 EDT , Chest X-Ray 01/10/22 17:26 IMPRESSION: There are no acute findings. Electronically Signed: Isaac Neff MD at 17:43 EDT , Assessment & Plan Assessment/Plan (1) Alteration in vision: PLAN: Plan Acute alteration in vision Different diagnoses include stroke. Serial NINDS NIH Scale ordered Impression of head and neck CTA by radiology includes severe narrowing of right M2 branch; diffuse narrowing of left MT branch. Head and neck CTA was visualized and independent interpreted and agree with radiologist interpretation. Emergency Department doctor discussed the case with a telemetry neurologist who recommended stroke work-up. Patient can follow-up with neurovascular surgeon upon discharge in regard to stenosis of brain vessels as patient's current symptoms does not correlate to where the stenosis of the vessels are located. CBC, BMP, high sensitivity troponin was reviewed and noted to be normal. Lipid profile and A1c ordered. Patient with no physical a weakness. No PT OT consult indicated at this time. Daily aspirin continued. Loading dose of Plavix ordered then Plavix 75 mg daily. Home rosuvastatin continued. Outside window of permissive hypertension. MRI brain ordered. Echocardiogram ordered. Hypertension Blood pressure is not within goal Home metoprolol and losartan continued. As needed hydralazine ordered. Trend blood pressure and adjust blood pressure medications. DVT prophylaxis Subcutaneous Lovenox ordered. Charges/Coding Visit Charges OBSV E&M: 24425 Initial observation care L3
[2022-01-10 20:48] VITALS: BP 168/71; PULSE 73; RESP 16; TEMP 36.5; O2SAT 98
--- NOTE | 2022-01-10 21:08 | ECHOD_ITS ---
Reason For Study: TIA/CVA Procedure This was a 2D Doppler, Color Flow transthoracic echocardiogram. Exam performed portable in patient room. Left Ventricle Normal LV size. Mild concentric left ventricular hypertrophy. The left ventricular ejection fraction is 70 %. Normal diastololic function. Mid LVOT gradent 64 mm Hg with Valsalva. Right Ventricle Normal right ventricle. Atria The left atrium is moderately enlarged. Normal right atrium. Probable patent foramen ovale. Mitral Valve Mild mitral annular calcification. Tricuspid Valve Normal tricuspid valve. Aortic Valve Normal aortic valve. Pulmonic Valve The pulmonic valve is not well visualized. Great Vessels Normal sized aortic root. Pericardium/Pleural No pericardial effusion. Medication Performed a rapid injection of agitated mix of 9 cc saline and 1cc air to assess for atrial septal defect. MMode/2D Measurements & Calculations LVIDd: 3.0 cm IVSd: 1.5 cm Ao root diam: 2.8 cm LVIDs: 1.7 cm LVPWd: 1.2 cm RVDd: 3.1 cm FS: 44.1 % LAV(MOD-bp): 32.6 ml LVAd ap4: 25.2 cm2 LVAd ap2: 21.5 cm2 LAV(MOD-bp) Indexed: 17.9 ml/m2 LVLd ap4: 7.8 cm LVLd ap2: 7.8 cm LAV(MOD-sp2): 32.9 ml EDV(MOD-sp4): 66.5 ml EDV(MOD-sp2): 49.7 ml LAV(MOD-sp4): 32.5 ml EDV(sp4-el): 69.1 ml EDV(sp2-el): 50.2 ml LVAs ap4: 11.0 cm2 LVAs ap2: 9.8 cm2 LVLs ap4: 6.5 cm LVLs ap2: 6.6 cm ESV(MOD-sp4): 15.7 ml ESV(MOD-sp2): 12.5 ml ESV(sp4-el): 15.6 ml ESV(sp2-el): 12.3 ml EF(MOD-sp4): 76.4 % EF(MOD-sp2): 74.9 % EF(sp4-el): 77.4 % SV(MOD-sp4): 50.8 ml SV(MOD-sp2): 37.3 ml SV(sp4-el): 53.5 ml LA A4 area: 13.7 cm2 LA dimension(2D): 3.8 cm RA A4 area: 13.1 cm2 Time Measurements MV dec time: 0.37 sec Doppler Measurements & Calculations MV E max gage: 69.1 cm/sec Lat Peak E' Gage: 5.5 cm/sec Med Peak E' Gage: 5.0 cm/sec MV A max gage: 102.5 cm/sec E/E' lat: 12.5 E/E' med: 13.8 MV E/A: 0.67 Ao V2 max: 131.3 cm/sec LV V1 max: 114.9 cm/sec MV dec slope: 190.4 cm/sec2 Ao max P.9 mmHg LV V1 max P.3 mmHg PA V2 max: 97.7 cm/sec ECHO/Echo Complete Interpretation Summary The left ventricular ejection fraction is 70 %. Mild mitral annular calcification. Mid LVOT gradent 64 mm Hg with Valsalva Probable patent foramen ovale. Mild concentric left ventricular hypertrophy. The left atrium is moderately enlarged. Ordering Physician: Jonathan Cevallos Referring Physician: Stefani Ball M.D. Performed By: Shea Rangel RDCS
[2022-01-10 21:09] VITALS: BP 168/81; PULSE 70; PULSE 73; RESP 18; TEMP 36.9; O2SAT 97; BMI 30.7
[2022-01-10] MEDS: Pregabalin 75 MG Capsule PO (22:26)
[2022-01-10] MEDS: Glycopyrrolate 1 MG TABLET PO (22:26)
[2022-01-10] MEDS: Atorvastatin Calcium 40 MG Tablet PO (22:26)
[2022-01-10] MEDS: Clopidogrel Bisulfate 300 MG Tablet PO (22:34)
[2022-01-10 23:39] VITALS: PULSE 73
[2022-01-10] MEDS: Losartan Potassium 50 MG Tablet PO (23:39)
[2022-01-10] MEDS: Metoprolol(XL)Succ 100 MG Tablet PO (23:39)
[2022-01-10] MEDS: Acetaminophen 325 MG Tablet 650 MG PO (23:40)
[2022-01-10] MEDS: Estradiol 1 MG Tablet PO (23:40)
[2022-01-10] MEDS: DULoxetine Hcl 60 MG Capsule PO (23:40)
[2022-01-11] VITALS (11 sets, daily range): BP systolic 136–176; BP diastolic 60–71; PULSE 68–79; RESP 16–18; TEMP 36.3–36.6; O2SAT 98–99; BMI 30.7
[2022-01-11] MEDS: Pregabalin 75 MG Capsule PO (05:11)
[2022-01-11] MEDS: hydrALAZINE 20 MG/ML Vial 5 MG IV (05:11)
[2022-01-11] MEDS: 0.9% Saline Lock 10 ML Syringe IV (05:12)
[2022-01-11 06:34] LABS: Cholesterol 141 mg/dL (200); High Density Lipoprotein 38 mg/dL; Triglycerides 219 mg/dL; Very Low Density Lipoprotein 44 mg/dL (5-40)
[2022-01-11 07:48] LABS: Hemoglobin A1c 5.7 % (3.8-5.6)
[2022-01-11] MEDS: Enoxaparin 40 MG/0.4 ML Syringe SC (09:35)
[2022-01-11] MEDS: Multivitamins,Ther W-Minerals Tablet 1 TABLET PO (09:35)
[2022-01-11] MEDS: Aspirin 81 MG TAB.CHEW PO (09:35)
[2022-01-11] MEDS: Glycopyrrolate 1 MG TABLET 2 MG PO (09:36)
[2022-01-11] MEDS: Pantoprazole Sodium 40 MG Tablet PO (09:36)
[2022-01-11] MEDS: Clopidogrel Bisulfate 75 MG Tablet PO (09:36)
--- NOTE | 2022-01-11 09:46 | MRI_ITS ---
We are attempting to reach an attending provider to discuss findings. An addendum with communication details will be sent when the communication is complete. STUDY: MRI BRAIN WITHOUT CONTRAST REASON FOR EXAM: Female, 71 years old. CVA pts seeing spots in visual field, eyes not focusing, upon eye exam eye dr suspected a stroke TECHNIQUE: Standardized multiplanar fat and water weighted pulse sequences were obtained. COMPARISON: Head CT dated January 10, 2022 FINDINGS: A small acute infarct is present in the posterior aspect of the left occipital lobe, associated with sulcal effacement and focal parenchymal edema. No additional acute infarcts are present in the bilateral cerebral hemispheres or in the posterior fossa. Normal size of the ventricles and extra-axial spaces for the patient''s age. There are a limited number of small white matter hyperintensities, distributed throughout the deep white matter tracts of the cerebral hemispheres, consistent with mild chronic white matter ischemic changes. Normal T2* images of the brain without demonstrated susceptibility artifact. There is no demonstrated hemosiderin stain. Normal bilateral basal ganglia. Normal thalami. There is no extra-axial fluid accumulation. Normal flow voids within the major intracranial circulation suggesting patency by spin echo criteria. Normal sella turcica, pituitary gland, infundibular stalk, optic chiasm and hypothalamus. Normal tectal plate and pineal gland. Normal midbrain, susan and medulla. Normal cerebellum. Normal basal cisterns. Normal bilateral temporal bones. Normal bilateral internal auditory canals. No demonstrated orbital abnormality, within the constraints of a routine brain study. Normal visualized paranasal sinuses. Normal calvarium and skull base. Normal visualized soft tissue structures. Normal visualized upper cervical spine. MRI/Brain without Contrast IMPRESSION: Small acute left occipital lobe infarct 1. A small acute infarct is present in the posterior aspect of the left occipital lobe, associated with sulcal effacement and focal parenchymal edema. No additional acute infarcts are present in the bilateral cerebral hemispheres or in the posterior fossa. Electronically Signed: Justin Key MD at 11:17 EDT ,
--- NOTE | 2022-01-11 13:10 | DCINST_ITS ---
Discharge Instructions Diet Discharge Diet: No restrictions Activity Discharge Activity: Return to Normal Activity Weight Bearing Status: Full weight bearing Follow Up Care Test Results: Test results from this visit will be discussed in further detail at your follow- up appointment, if applicable. Discharge Plan Admission Admit Date/Time: 01/10/22 19:48 Primary Reason for Your Visit: left occipital stroke Attending Provider: Jakub Amanda Primary Care Provider: Stefani Ball Consulting Providers: Jonathan Cevallos Instructions Additional Instructions / Restrictions: Follow up with speech regarding visual problems Discharge Orders/Prescriptions Prescriptions: New clopidogrel [Plavix] 75 mg tablet 75 mg PO DAILY Qty: 30 1RF Continued biotin 1 MG tablet 2 mg PO DAILY pregabalin 75 MG capsule 75 mg PO TID losartan 50 mg tablet 50 mg PO DAILY glycopyrrolate 1 mg tablet 2 mg PO DAILY glycopyrrolate 1 mg tablet 1 mg PO QHS fluorouracil 5 % cream 1 applic TOPICAL DAILY metoprolol succinate 100 mg tablet extended release 24 hr 100 mg PO DAILY aspirin 81 mg Tablet,Delayed Release (Dr/Ec) 81 mg PO DAILY estradiol 1 mg Tablet 1 mg PO DAILY esomeprazole magnesium 40 mg capsule,delayed release(DR/EC) 40 mg PO DAILY fluticasone propionate [Flonase Allergy Relief] 50 mcg/actuation [place],Suspension 50 mcg INTRANASAL DAILY PRN PRN (Reason: ALLERGIES) rosuvastatin 20 mg tablet 20 mg PO DAILY Label Comments: 1 tablet by mouth once a day duloxetine 60 mg Capsule,Delayed Release(Dr/Ec) 60 mg PO DAILY pedi multivit 17-iron fumarate 15 mg iron Tablet,Chewable 1 tab PO DAILY Prevagen 20 MG 20 mg PO/SL DAILY PRN (Reason: MEMORY) Referrals / Follow Up: Stefani Ball MD [Primary Care Provider] - Within 2 Weeks Disposition Disposition (needs filled in before D/C Order can be placed): Home, Self Care
--- NOTE | 2022-01-11 13:19 | CM.ED ---
SW met with patient and her . Patient gave verbal consent for this technical publications writer to speak to her in the presence of her . Patient was agreeable to completing the PHQ9. Patient said that she does get tired but only because I have been on the golf course doing 18 holes. Patient said that she does enjoys sweets but does not feel she overeats. Patient's voiced that patient worries about her children. SW advised that if at any time patient has symptoms of depression or it disrupts her life to contact her PCP. Patient voiced that she is always on the go. Patient bright and engaged in conversation easily. Patient is future oriented and talked about the enjoyment she has in being with her grandchildren. PHQ-9 completed. Score 0. PHQ9 charted. Alissa CH
--- NOTE | 2022-01-11 13:26 | PCM.DC.SUM ---
Providers Date of Admission: 01/10/22 Date of Discharge: 01/11/22 Primary Care Physician: Dr. Stefani Ball MD Reason For Visit: ACUTE CVA Diagnosis Discharge Diagnosis (1) Alteration in vision: Status: Acute Code(s): H54.7 - Unspecified visual loss Plan 1. Acute ischemic infarction left occipital lobe #2 essential hypertension #3 hyperlipidemia #4 patent foramen ovale Medications at Discharge Home Medications biotin 1 mg tablet 2 mg PO DAILY SUPPLEMENT 06/12/14 pregabalin 75 mg capsule 75 mg PO TID PAIN 06/12/14 Prevagen 20 mg PO/SL DAILY PRN MEMORY 01/10/22 aspirin 81 mg tablet,delayed release 81 mg PO DAILY HEART HEALTH 01/10/22 duloxetine 60 mg capsule,delayed release 60 mg PO DAILY mental health 01/10/22 esomeprazole magnesium 40 mg capsule,delayed release 40 mg PO DAILY GERD 01/10/22 estradiol 1 mg tablet 1 mg PO DAILY hormones 01/10/22 fluorouracil 5 % topical cream 1 applic topical DAILY CANCER 01/10/22 fluticasone propionate 50 mcg/actuation nasal spray,suspension (Flonase Allergy Relief) 50 mcg intranasal DAILY PRN PRN ALLERGIES 01/10/22 glycopyrrolate 1 mg tablet 1 mg PO QHS STOMACH 01/10/22 glycopyrrolate 1 mg tablet 2 mg PO DAILY STOMACH 01/10/22 losartan 50 mg tablet 50 mg PO DAILY BP 01/10/22 metoprolol succinate 100 mg tablet,extended release 24 hr 100 mg PO DAILY BP 01/10/22 pediatric multivit no.17-ferrous fumarate 15 mg iron chewable tablet 1 tab PO DAILY SUPPLEMENT 01/10/22 rosuvastatin 20 mg tablet 20 mg PO DAILY CHOLESTEROL 01/10/22 clopidogrel 75 mg tablet (Plavix) 75 mg PO DAILY #30 tabs 01/11/22 Hospital Course Operations None Procedures 2-D Echocardiogram Summary of Care Provided Minutes Spent on Discharge: 31 Hospital Course: This 71-year-old white female was seen in the emergency room at [facility] with complaints of visual disturbances that she had had for approximately 3 to 4 days prior. Patient has seen her equity trader and public relations specialist, no abnormalities could be found to explain why she had the visual abnormalities. Work-up in the emergency room included a CTA of the head and neck, there is no significant occlusive disease noted on the CTA, CT of the brain was unremarkable. Patient was placed into observation status on PCU, an MRI of the brain was obtained which showed an acute left occipital ischemic infarction, patient was placed on Plavix and her aspirin was continued. She was seen by PT, OT, and speech therapy-speech therapy did not feel the patient needed follow-up. On 01/11/2022, patient was seen and examined: On examination she appeared in good health and spirits, she does not appear to be in any distress. Vital signs as documented. Skin warm and dry and without overt rashes. Neck without JVD, thyroid appears normal, trachea is midline, neck is supple. Lungs clear, normal air movement was noted. Heart exam notable for regular rhythm, normal sounds and absence of murmurs, rubs or gallops. Abdomen unremarkable and without evidence of organomegaly, masses, or abdominal aortic enlargement, bowel sounds are present in all 4 quadrants, no abdominal tenderness was noted. Extremities nonedematous, no cyanosis was noted, no clubbing was noted. Neuro: Cranial nerves II through XII are grossly intact, no focal motor deficits were noted, sensation to light touch and pinprick is intact, motor exam 5/5 throughout. Psych: Patient is alert and oriented x3, she does not appear anxious or depressed, she does not appear agitated. I talked at length with her and the patient on 01/11/2022, patient declined to be seen by teleneurology, I discussed this with her and told her that most likely the treatment would be the same-an aspirin and Plavix-and that she could follow-up with her PCP regarding further neurological consultation, patient agreed to this. I talked with her family physician by phone (Dr. Lake) and she will refer the patient out for further speech therapy and neurological consultation if necessary. Patient's echocardiogram showed a probable patent foramen ovale. This was discussed with the patient. On 01/11/2022, patient was seen and examined and felt to be in stable condition for discharge home Weight / BMI Weight Weight: 78.6 kg Body Mass Index (BMI) 30.7 ABG / Lab / Microbiology Data Result Diagrams: 01/10/22 17:00 01/10/22 17:00 Laboratory: Laboratory Results - last 24 hr 01/10/22 17:00: WBC 10.4, RBC 4.41, Hgb 13.4, Hct 40.3, MCV 91.4, MCH 30.4, MCHC 33.3, RDW Std Deviation 42.8, RDW Coeff of [place] 12.8, Plt Count 324, MPV 10.9, Immature Gran % (Auto) 0.400, Neut % (Auto) 51.3, Lymph % (Auto) 37.3, [place] % (Auto) 8.9, Eos % (Auto) 1.8, Baso % (Auto) 0.3, Absolute Neuts (auto) 5.3, Absolute Lymphs (auto) 3.88, Nucleated RBC % 0 01/10/22 17:00: PT 13.1, INR 1.0, APTT 29.5 01/10/22 17:00: Sodium 142, Potassium 4.2, Chloride 106, Carbon Dioxide 30.0, Anion Gap 6, BUN 14, Creatinine 0.95, Estim Creat Clear Calc 45.58, Est GFR (MDRD) Af Amer 75, Est GFR (MDRD) Non-Af 62, BUN/Creatinine Ratio 14.7, Glucose 85, Calcium 9.8, Troponin I High Sens 6 01/11/22 05:53: Triglycerides 219 H, Cholesterol 141, LDL Cholesterol 59, VLDL Cholesterol 44 H, HDL Cholesterol 38 L 01/11/22 05:53: Hemoglobin A1c 5.7 H Radiography Diagnostic Testing: Radiology Impression Head/Neck CTA 01/10/22 16:58 IMPRESSION: 1. There is severe narrowing of the right M2 branch with > than 75% cross sectional diameter stenosis. ALL ABOVE CRITERIA BY NASCET. 2. There is diffuse narrowing of the left M1 branch with a stenosis of >70%. ALL ABOVE CRITERIA BY NASCET. 3. There is mild atherosclerotic plaque formation of the origin of the left internal carotid artery with less than 50% cross sectional diameter stenosis. ALL ABOVE CRITERIA BY NASCET. 4. There is mild atherosclerotic plaque formation of the origin of the right internal carotid artery with less than 50% cross sectional diameter stenosis. ALL ABOVE CRITERIA BY NASCET. 5. There is calcified plaque formation of the right cavernous carotid artery, with a mild stenosis (less than 50%). ALL ABOVE CRITERIA BY NASCET. 6. There is calcified plaque formation of the left cavernous carotid artery, with a mild stenosis (less than 50%). ALL ABOVE CRITERIA BY NASCET. 7. The thyroid is heterogenous. It contains nodules. This should be further evaluated with ultrasound. This can be performed as an outpatient. Electronically Signed: Isaac Neff MD at 18:37 EDT , ADDENDUM: 01/10/22 1844 IMPRESSION: 1. There is severe narrowing of the right M2 branch with > than 75% cross sectional diameter stenosis. ALL ABOVE CRITERIA BY NASCET. 2. There is diffuse narrowing of the left M1 branch with a stenosis of >70%. ALL ABOVE CRITERIA BY NASCET. 3. There is mild atherosclerotic plaque formation of the origin of the left internal carotid artery with less than 50% cross sectional diameter stenosis. ALL ABOVE CRITERIA BY NASCET. 4. There is mild atherosclerotic plaque formation of the origin of the right internal carotid artery with less than 50% cross sectional diameter stenosis. ALL ABOVE CRITERIA BY NASCET. 5. There is calcified plaque formation of the right cavernous carotid artery, with a mild stenosis (less than 50%). ALL ABOVE CRITERIA BY NASCET. 6. There is calcified plaque formation of the left cavernous carotid artery, with a mild stenosis (less than 50%). ALL ABOVE CRITERIA BY NASCET. 7. The thyroid is heterogenous. It contains nodules. This should be further evaluated with ultrasound. This can be performed as an outpatient. N.B. : The above Results were Read Back by Isaac Neff MD to Reynaldo Bender MD, and understanding confirmed on 01/10/2022 18:37:44 (ET). Electronically Signed: Isaac Neff MD at 18:37 EDT , Chest X-Ray 01/10/22 17:26 IMPRESSION: There are no acute findings. Electronically Signed: Isaac Neff MD at 17:43 EDT , Echocardiogram 01/10/22 21:08 Interpretation Summary The left ventricular ejection fraction is 70 %. Mild mitral annular calcification. Mid LVOT gradent 64 mm Hg with Valsalva Probable patent foramen ovale. Mild concentric left ventricular hypertrophy. The left atrium is moderately enlarged. Ordering Physician: Jonathan Cevallos Referring Physician: Stefani Ball M.D. Performed By: Shea Rangel RDCS Brain MRI 01/11/22 09:46 IMPRESSION: Small acute left occipital lobe infarct 1. A small acute infarct is present in the posterior aspect of the left occipital lobe, associated with sulcal effacement and focal parenchymal edema. No additional acute infarcts are present in the bilateral cerebral hemispheres or in the posterior fossa. Electronically Signed: Justin Key MD at 11:17 EDT , ADDENDUM: 01/11/22 1128 IMPRESSION: Small acute left occipital lobe infarct 1. A small acute infarct is present in the posterior aspect of the left occipital lobe, associated with sulcal effacement and focal parenchymal edema. No additional acute infarcts are present in the bilateral cerebral hemispheres or in the posterior fossa. N.B. : The above Results were Read Back by Justin Key MD to Clotilde Palacio RN, and understanding confirmed on 01/11/2022 11:21:26 (ET). Electronically Signed: Justin Key MD at 11:17 EDT , ADDENDUM: 01/11/22 1134 IMPRESSION: Small acute left occipital lobe infarct 1. A small acute infarct is present in the posterior aspect of the left occipital lobe, associated with sulcal effacement and focal parenchymal edema. No additional acute infarcts are present in the bilateral cerebral hemispheres or in the posterior fossa. N.B. : The above Results were Read Back by Justin Key MD to RN Clotilde Palacio RN, and understanding confirmed on 01/11/2022 11:27:51 (ET). Electronically Signed: Justin Key MD at 11:17 EDT Reading Location ID and State: [facility] / [place] , Service support , D/C Instructions Discharge Diet: No restrictions Weight Bearing Status: Full weight bearing Meaningful Use Info Meaningful Use Diagnoses (Choose all that apply): Ischemic CVA CVA Therapy Assessed for PT,OT and/or ST?: Yes Ischemic Stroke Antithrombotic order at d/c?: Yes Dx of Atrial fib/flutter?: No Anticoagulant at discharge?: No Reason anticoagulant not ordered: Medical Contraindication Statins at discharge?: Yes Primary Dx Acute Ischemic CVA?: Yes IV tPA ordered during stay?: No Reason IV t-PA not ordered: Treatment not Indicated Discharge Plan Admission Admit Date/Time: 01/10/22 19:48 Primary Reason for Your Visit: left occipital stroke Attending Provider: Jakub Amanda Primary Care Provider: Stefani Ball Consulting Providers: Jonathan Cevallos Instructions Additional Instructions / Restrictions: Follow up with speech regarding visual problems Discharge Orders/Prescriptions Prescriptions: New clopidogrel [Plavix] 75 mg tablet 75 mg PO DAILY Qty: 30 1RF Continued biotin 1 MG tablet 2 mg PO DAILY pregabalin 75 MG capsule 75 mg PO TID losartan 50 mg tablet 50 mg PO DAILY glycopyrrolate 1 mg tablet 2 mg PO DAILY glycopyrrolate 1 mg tablet 1 mg PO QHS fluorouracil 5 % cream 1 applic TOPICAL DAILY metoprolol succinate 100 mg tablet extended release 24 hr 100 mg PO DAILY aspirin 81 mg Tablet,Delayed Release (Dr/Ec) 81 mg PO DAILY estradiol 1 mg Tablet 1 mg PO DAILY esomeprazole magnesium 40 mg capsule,delayed release(DR/EC) 40 mg PO DAILY fluticasone propionate [Flonase Allergy Relief] 50 mcg/actuation [place],Suspension 50 mcg INTRANASAL DAILY PRN PRN (Reason: ALLERGIES) rosuvastatin 20 mg tablet 20 mg PO DAILY Label Comments: 1 tablet by mouth once a day duloxetine 60 mg Capsule,Delayed Release(Dr/Ec) 60 mg PO DAILY pedi multivit 17-iron fumarate 15 mg iron Tablet,Chewable 1 tab PO DAILY Prevagen 20 MG 20 mg PO/SL DAILY PRN (Reason: MEMORY) Referrals / Follow Up: Stefani Ball MD [Primary Care Provider] - Within 2 Weeks Disposition Disposition (needs filled in before D/C Order can be placed): Home, Self Care Charges/Coding Visit Charges OBSV E&M: 58235 Observation care discharge
== END 2022-01-11 13:18 | disposition home or self-care (01) ==
LOC: ED 19:14 → PCU 20:16
PROVIDERS: Admitting Provider Hospitalist; Emergency Provider Emergency Medicine; PCP Family Medicine; Visit Provider Internal Medicine
DX: I63.9 Cerebral infarction, unspecified (principal); I10 Essential (primary) hypertension; Z79.82 Long term (current) use of aspirin; E78.00 Pure hypercholesterolemia, unspecified; H53.8 Other visual disturbances; Z79.899 Other long term (current) drug therapy; R29.701 NIHSS score 1; Q21.1 Atrial septal defect; R94.39 Abnormal result of other cardiovascular function study; R94.31 Abnormal electrocardiogram [ECG] [EKG]; I65.23 Occlusion and stenosis of bilateral carotid arteries; R13.10 Dysphagia, unspecified
CPT/HCPCS: 36415; 70496; 70498; 70551; 71045; 80048; 80061; 83036; 84484; 85025; 85610; 85730; 92523; 93005; 93306; 93880; 96372; 96374; 99218; 99283; Q9967; A4216; G0378

== ENCOUNTER → 2022-01-10 | Outpatient (CLI) | payer MEDICARE, SELFPAY ==
--- NOTE | 2022-01-10 12:54 | CDU_ITS ---
Reason For Study: Visual field defect Rt. Velocities/BP Lt. Velocities/BP Prox CCA 61.7/14.5 cm/sec. Prox CCA 74/18.8 cm/sec. Mid CCA 63.6/18.2 cm/sec. Mid CCA 71.6/21.2 cm/sec. Dist CCA 58.9/14.5 cm/sec. Dist CCA 71.6/18.8 cm/sec. Prox ICA 57.5/13.5 cm/sec. Prox ICA 45.8/11.4 cm/sec. Mid ICA 86.1/22.3 cm/sec. Mid ICA 81.4/23.7 cm/sec. Dist ICA 106.5/31.6 cm/sec. Dist ICA 75/26.5 cm/sec. Rt. ICA/CCA = 1.73. Lt. ICA/CCA = 1.14. Prox ECA 87.2/11.3 cm/sec. Prox ECA 91.2/16.3 cm/sec. Rt. Vert. 36/7.7 cm/sec. Lt. Vert. 63/17.6 cm/sec. Right Extracranial There is homogeneous, smooth atherosclerotic plaque noted in the right common carotid artery. There is heterogeneous, irregular atherosclerotic plaque noted in the right internal carotid artery. There is intimal thickening but no significant atherosclerotic plaque noted in the right external carotid artery. Antegrade flow is noted in the right vertebral artery. Left Extracranial There is intimal thickening but no significant atherosclerotic plaque noted in the left common carotid artery. There is heterogeneous, irregular atherosclerotic plaque noted in the left internal carotid artery. The atherosclerotic plaque causes acoustic shadowing. There is heterogeneous, irregular atherosclerotic plaque noted in the left external carotid artery. Antegrade flow is noted in the left vertebral artery. Procedure Carotid Duplex [id number]. This is a Carotid Duplex examination using B-mode, color flow and specral Doppler. Exam performed in department. VL/Carotid Duplex Ultrasound Interpretation Summary Mild (<50%) stenosis right extracranial internal carotid. Mild (<50%) stenosis left extracranial internal carotid. Calcification in the proximal left internal carotid artery ob cures pablo-scale imaging of the lumen. The degree of stenosis may exceed that as determined by v elocity criteria alone. In that regard, clinical correlation is advised, and an alternative imag ing modality may be helpful if felt warranted. Flow within the vertebral arteries is antegrade bila terally. Ordering Physician: Shashank Caban Referring Physician: Stefani Ball M.D. Performed By: Gilma Mensah RVT
== END | disposition home or self-care (01) ==
LOC: CVS 12:52
PROVIDERS: PCP Family Medicine; Referring Provider Ophthalmology; Visit Provider Ophthalmology
DX: H53.40 Unspecified visual field defects (principal); Z86.73 Personal history of transient ischemic attack (TIA), and cerebral infarction without residual deficits
CPT/HCPCS: 93880

== ENCOUNTER → 2022-04-18 | Outpatient (CLI) | payer MEDICARE, SELFPAY ==
--- NOTE | 2022-04-18 08:53 | BI_ITS ---
MAMMOGRAPHY - UNILATERAL DIAGNOSTIC: RIGHT BREAST REASON FOR EXAM: Female, 71 years old. Right breast lump. The palpable abnormality has decreased in size recently. PERTINENT HISTORY: Non-contributory. TECHNIQUE: Digital unilateral breast tracy (3D mammographic acquisition) in the CC and MLO projections. 2-D mediolateral oblique (MLO) and craniocaudad (CC) views of both breasts were obtained. CAD: Full Field Digital Mammography with Computer Added Detection was performed. COMPARISON: Comparison is made with prior study 12/10/2021 and 08/29/2020 FINDINGS: Breast Composition: The breasts are extremely dense, which lowers the sensitivity of mammography. There are no dominant masses or suspicious calcifications. No other significant abnormalities are identified. There has been no significant change since the prior study. BI/DIAG MAMM W/CAD, UNILAT IMPRESSION: Stable unilateral diagnostic mammogram. With the patient''s history of a palpable lump in the right breast, correlation with ultrasound is recommended. ASSESSMENT CATEGORY: BIRADS Category 0: Incomplete. Need additional imaging evaluation. A letter regarding these results will be sent to the patient by the facility within 30 days. Approximately 10% of breast cancers are not detected by mammography. A normal mammogram should not delay biopsy of a clinically suspicious abnormality. Electronically Signed: Nishant Lim MD at 10:44 EST ,
--- NOTE | 2022-04-18 08:56 | US_ITS ---
STUDY: ULTRASOUND BREAST - RIGHT REASON FOR EXAM: Female, 71 years old. Palpable lump in the right breast. TECHNIQUE: Axial and longitudinal images of the RIGHT breast were performed with a high resolution ultrasound transducer. # OF IMAGES: 24 COMPARISON: Comparison is made with prior mammogram done earlier today. FINDINGS: RIGHT Breast: The palpable abnormality corresponds to a 1.3 cm x 1 cm x 0.8 cm complex solid and cystic nodule at the 11 o''clock position of the breast at 3 cm from the nipple. Biopsy recommended. US/Breast Limited Unilateral IMPRESSION: 1.3 cm x 1 cm x 0.7 complex solid and cystic nodule at the 11 o''clock position of the breast at 3 cm from the nipple. Biopsy recommended. ASSESSMENT CATEGORY: BIRADS Category 4: Suspicious - Biopsy Should Be Considered. A letter regarding these results will be sent to the patient by the facility within 30 days. Electronically Signed: Nishant Lim MD at 10:54 EST ,
== END | disposition home or self-care (01) ==
LOC: OPBI 08:49
PROVIDERS: PCP Family Medicine; Visit Provider Family Medicine
DX: R92.8 Other abnormal and inconclusive findings on diagnostic imaging of breast (principal); N63.10 Unspecified lump in the right breast, unspecified quadrant
CPT/HCPCS: 76642; 77061; 77065; G0279

== ENCOUNTER → 2022-04-28 | Outpatient (CLI) | payer MEDICARE, SELFPAY ==
--- NOTE | 2022-04-28 14:20 | BRBX_PTH ---
PATIENT: DERRICK SALVADOR LOC: [facility] U#:[id number] AGE/SX: 71/F ROOM: RE04/28/[address]: Dr. Ada Sadler MD : 1950 BED: DIS: 04/28/2022 SPEC #: [id number] RECD: 04/28/22 16:49 STATUS: AL REYandy #: [id number] SANDRA: 04/28/22 14:[address]: Ada Sadler DEPT: SURGICAL PATHOLOGY RECD BY: Jane Espinoza ENTERED: 04/29/22 09:57 SP TYPE: BREAST BX OTHR DR: Dr. Stefani Ball MD Tissues: Right breast, NOS Procedures: Surgery Specimen Level IV HEADER OPERATION: Right breast biopsy PRE-OP DIAGNOSIS: Right breast mass, solid/cystic TISSUE SUBMITTED: Right breast tissue 11 o?clock, 3 cm MICROSCOPIC DIAGNOSIS Right breast tissue, 11 o?clock, 3 cm, core biopsy: Fragments of benign breast tissue with focal chronic inflammation and histiocytic reaction. Negative for atypia or malignancy. See comment. SAIGE:shelby 04/30/2022 COMMENT Correlation with clinical, radiologic findings and appropriate follow up are necessary. Case has been reviewed in consultation with Dr. Baker who concurs with the above diagnosis. IDC:AM MICROSCOPIC DESCRIPTION Slides are reviewed. GROSS DESCRIPTION Received in fixative is one container labeled with the patient's name and designated right breast. The specimen consists of multiple elongated fragments of larson-yellow fibroadipose tissue that in aggregate measure 1 x 0.5 x 0.1 cm. The entire specimen is submitted in one cassette. / SAIGE:shelby 04/29/2022 TC:3 CPT: 05575
== END | disposition home or self-care (01) ==
PROVIDERS: PCP Family Medicine; Visit Provider Surgery
DX: N63.10 Unspecified lump in the right breast, unspecified quadrant (principal)
CPT/HCPCS: 88305

== ENCOUNTER → 2022-07-14 | Outpatient (CLI) | payer MEDICARE, SELFPAY ==
--- NOTE | 2022-07-14 12:28 | US_ITS ---
STUDY: THYROID ULTRASOUND REASON FOR EXAM: Female, 71 years old. Thyroid nodules TECHNIQUE: Ultrasound evaluation of the thyroid was performed with real-time and static pablo-scale imaging. COMPARISON: None. FINDINGS: RIGHT LOBE: The right lobe of the thyroid gland measures 4 cm x 1.7 cm x 1.9 cm. There is a homogeneous echotexture. There is a 1.5 cm x 1.2 cm x 1.3 cm complex solid and cystic nodule in the upper mid aspect of the right lobe. Biopsy recommended. LEFT LOBE: The left lobe of the thyroid gland measures 3.7 cm x 1.4 cm x 1.3 cm. There is a homogeneous echotexture. There is a 5 mm x 6 mm x 5 mm solid nodule in the mid posterior aspect. ISTHMUS: The isthmus measures 2 mm. The regional lymph nodes are normal. US/Thyroid IMPRESSION: 1.5 cm x 1.2 cm x 1.3 cm complex solid and cystic nodule in the upper mid aspect of the right lobe of the thyroid. Biopsy is recommended. Electronically Signed: Nishant Lmi MD at 13:58 EDT ,
[2022-07-14 16:12] LABS: Free T3 2.4 pg/mL (2.18-3.98); T4 Free Direct 0.93 ng/dL (0.76-1.46)
== END | disposition home or self-care (01) ==
PROVIDERS: PCP Family Medicine; Referring Provider Psychiatry & Neurology Neurology; Visit Provider Psychiatry & Neurology Neurology
DX: E04.2 Nontoxic multinodular goiter (principal); I10 Essential (primary) hypertension
CPT/HCPCS: 36415; 76536; 84439; 84443; 84481

== ENCOUNTER → 2022-08-11 | Outpatient (CLI) | payer MEDICARE, SELFPAY ==
--- NOTE | 2022-08-11 08:31 | MRI_ITS ---
EXAM: MR HEAD WITHOUT AND WITH INTRAVENOUS CONTRAST CLINICAL INDICATION: Right visual field defect. TECHNIQUE: Multiplanar and multisequence MR images of the brain were obtained without and with intravenous contrast. CONTRAST: 13 mL of IV Clariscan. COMPARISON: MRI brain without contrast 01/11/2022. FINDINGS: BRAIN AND EXTRA-AXIAL SPACES: Mild diffusion restriction in the left cuneus is hyperintense on T2 FLAIR and T1 weighted sequence. This is due to cortical laminar necrosis. This enhances with IV contrast. Old cortical-based ischemic infarct involving the left occipital pole with cortical laminar necrosis has increased in size extending more laterally, previously limited to the left occipital pole and previously subacute. No other enhancing lesions intra-axially and extra-axially. No intra- or extra-axial hemorrhage. No intracranial mass or mass effect. Posterior fossa structures are unremarkable. Basal cisterns are patent. No diffusion restriction to suspect acute or subacute ischemic infarct. SELLA: Unremarkable. Normal sella turcica, pituitary gland, infundibular stalk, optic chiasm and hypothalamus. AUDITORY SYSTEM: Unremarkable. The internal auditory canals are patent. BONES/JOINTS: Unremarkable. No discrete lytic or blastic abnormalities. SINUSES: Unremarkable as visualized. Clear. MASTOID AIR CELLS: Unremarkable as visualized. Clear. ORBITS: Unremarkable as visualized. Both globes, extraocular muscles, optic nerves and retrobulbar fat appear unremarkable. VASCULATURE: Unremarkable as visualized. Normal flow voids in the major intracranial circulation. MRI/Brain W/WO Contrast IMPRESSION: 1. 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 This was not present previously. This is the source of the right visual field defect. 2. Old ischemic infarct in the left occipital pole with minimal cortical lamina necrosis extends more laterally, previously subacute. 3. No other additional findings or changes. Electronically Signed: Roman Varghese MD at 10:25 EDT ,
[2022-08-11 08:56] LABS: CREATININE FINGERSTICK 1.1 mg/dL (0.55-1.02)
== END | disposition home or self-care (01) ==
LOC: MRI 08:02
PROVIDERS: PCP Family Medicine; Visit Provider Ophthalmology
DX: H53.40 Unspecified visual field defects (principal); Z86.73 Personal history of transient ischemic attack (TIA), and cerebral infarction without residual deficits
CPT/HCPCS: 70553; A9575

== ENCOUNTER → 2022-08-12 | Outpatient (CLI) | payer MEDICARE, SELFPAY ==
[2022-08-12 12:20] LABS: Hematocrit 39.6 % (37-47); Hemoglobin 12.7 g/dL (12.0-15.0); Mean Corp Hgb Conc 32.1 g/dL (32-36); Mean Corpuscular Hgb 29.2 pg (27.0-32.0); Mean Platelet Vol. 11.1 fl (6.2-12.0); Platelet Count 312 K/mm3 (150-450); RBC Distribution Width CV 13.2 % (11.6-14.6); RBC Distribution Width SD 44.3 fl (35.1-43.9); Red Blood Count 4.35 M/mm3 (4.2-5.4); White Blood Count 8.4 K/mm3 (4.4-11.0)
[2022-08-12 12:49] LABS: ALB/GLOB Ratio 0.9 RATIO (0.9-2.4); AST(SGOT) 21 U/L (15-37); Alanine Aminotransfer ALT/SGPT 25 U/L (13-56); Albumin, Serum 3.6 g/dL (3.2-5.0); Alkaline Phosphatase 64 U/L (45-117); Anion Gap 6 (5-15); BUN 12 mg/dL (7-18); BUN/Creat Ratio 13.3 RATIO (10-20); Calcium,Total 9.5 mg/dL (8.5-10.1); Chloride 108 mmol/L (98-107); Cholesterol 138 mg/dL (200); EST Glomerular Filtration Rate 65 mL/min (>60); Est Glom Filt Rate - Afr Amer 79 mL/min (>60); Glucose 93 mg/dL (74-106); High Density Lipoprotein 45 mg/dL; Potassium 3.4 mmol/L (3.5-5.1); Protein, Total 7.6 g/dL (6.4-8.2); Sodium Level 142 mmol/L (136-145); Triglycerides 185 mg/dL; Very Low Density Lipoprotein 37 mg/dL (5-40)
== END | disposition home or self-care (01) ==
LOC: MTLAB 09:36
PROVIDERS: PCP Family Medicine; Referring Provider Psychiatry & Neurology Neurology; Visit Provider Psychiatry & Neurology Neurology
DX: I63.9 Cerebral infarction, unspecified (principal); E78.5 Hyperlipidemia, unspecified; I10 Essential (primary) hypertension
CPT/HCPCS: 80053; 80061; 85027

== ENCOUNTER → 2022-09-04 | Outpatient (CLI) | payer MEDICARE, SELFPAY ==
--- NOTE | 2022-09-04 07:47 | CDU_ITS ---
Reason For Study: CVA Rt. Velocities/BP Lt. Velocities/BP Prox CCA 65.5/12.7 cm/sec. Prox CCA 87.5/18.2 cm/sec. Mid CCA 62.2/12.7 cm/sec. Mid CCA 83.1/19.3 cm/sec. Dist CCA 75.4/14.9 cm/sec. Dist CCA 75.4/21.5 cm/sec. Prox ICA 55.6/14.9 cm/sec. Prox ICA 57.2/14.5 cm/sec. Mid ICA 63.3/20.6 cm/sec. Mid ICA 76.5/17.1 cm/sec. Dist ICA 74.3/22.6 cm/sec. Dist ICA 61.1/23.8 cm/sec. Rt. ICA/CCA = 1.2. Lt. ICA/CCA = 0.9. Prox ECA 87.5/9.5 cm/sec. Prox ECA 98.5/10.6 cm/sec. Rt. Vert. 45.7/10.6 cm/sec. Lt. Vert. 52.3/16.0 cm/sec. Vascularized thyroid structure measuring approximately 1.87cm x 1.23cm noted on rt side in mid portion of neck. Right Extracranial There is homogeneous, smooth atherosclerotic plaque noted in the right common carotid artery. There is heterogeneous, irregular atherosclerotic plaque noted in the right internal carotid artery. There is heterogeneous, irregular atherosclerotic plaque noted in the right external carotid artery. Antegrade flow is noted in the right vertebral artery. Left Extracranial There is homogeneous, smooth atherosclerotic plaque noted in the left common carotid artery. There is heterogeneous, irregular atherosclerotic plaque noted in the left internal carotid artery. The atherosclerotic plaque causes acoustic shadowing. There is intimal thickening but no significant atherosclerotic plaque noted in the left external carotid artery. Procedure Carotid Duplex 42635. This is a Carotid Duplex examination using B-mode, color flow and specral Doppler. The exam was diagnostic. Exam performed in department. VL/Carotid Duplex Ultrasound Interpretation Summary Mild (<50%) stenosis right extracranial internal carotid. Mild (<50%) stenosis left extracranial internal carotid. Patent and antegrade vertebrals bilaterally. Vascularized thyroid structure measuring approximately 1.87cm x 1.23cm noted on right side in mid portion of neck. Ordering Physician: Shiva Perkins Referring Physician: Stefani Ball M.D. Performed By: Janes Brand RVT
== END | disposition home or self-care (01) ==
LOC: CVS 07:44
PROVIDERS: PCP Family Medicine; Referring Provider Psychiatry & Neurology Neurology; Visit Provider Psychiatry & Neurology Neurology
DX: I65.23 Occlusion and stenosis of bilateral carotid arteries (principal); I63.9 Cerebral infarction, unspecified
CPT/HCPCS: 93880

== ENCOUNTER 2022-09-22 09:39 | Outpatient (CLI) | payer MEDICARE, SELFPAY ==
[2022-09-19 09:54] VITALS: BMI 30.2
--- NOTE | 2022-09-22 10:06 | ECHOTEE_ITS ---
Reason For Study: EMBOLI Medication KENTRELL probe 6VT-D (SN [id number]) passed with minimal difficulty. No complications were noted. Cetacaine Topical [place] given X3 orally. Versed 4 mg given slow IVP. Fentanyl 75 mcg given slow IVP. Performed a rapid injection of agitated mix of 9 cc saline and 1cc air to assess for atrial septal defect. Left Ventricle Normal left ventricle. Left ventricular systolic function is normal. The estimated ejection fraction is 60 %. No regional wall motion abnormalities noted. Right Ventricle Normal RV size. Normal systolic function. Atria Intact atrial septum. Normal left atrium. No thrombus is detected in the left atrial appendage. Normal right atrium. Mitral Valve Normal mitral valve. Mild (1+) eccentric mitral valve insufficiency. Tricuspid Valve Normal tricuspid valve. Aortic Valve Trisinus/trileaflet aortic valve. Pulmonic Valve Normal pulmonic valve. Vessels Normal aortic root. Normal arch. The pulmonary artery is normal size. Pericardium No pericardial effusion.
[2022-09-22 10:08] LABS: Anion Gap 4 (5-15); BUN 16 mg/dL (7-18); BUN/Creat Ratio 19.8 RATIO (10-20); Calcium,Total 9.2 mg/dL (8.5-10.1); Chloride 109 mmol/L (98-107); Creatinine, Serum 0.81 mg/dL (0.55-1.02); EST Glomerular Filtration Rate 74 mL/min (>60); Est Glom Filt Rate - Afr Amer 90 mL/min (>60); Glucose 98 mg/dL (74-106); Potassium 3.9 mmol/L (3.5-5.1); Sodium Level 141 mmol/L (136-145)
--- NOTE | 2022-09-22 10:51 | CL.IE_ITS ---
Patient: CASE,DERRICK OBREGON Study Date: 09/22/2022 Performing: Noble Gloria MD : 1950 Age: 72 Gender: female PROCEDURES PERFORMED LP01-(09041)INSERTION OF LOOP RECORDER INDICATIONS Cerebral infarction I63.9, Patent foramen ovale Q21.12 PROCEDURE DETAILS The patient was brought to the Catheterization Lab in the postabsorptive nonsedated state. Informed consent was obtained prior to the procedure. Local anesthetic was given subcutaneously to the left upper chest area with Lidocaine 2%. Incision was made to the left upper chest. ICM Loop Recorder was inserted. Steri-strips applied to Lt chest area. The patient tolerated the procedure well. Estimated Blood Loss: 10 ml's IMPLANTED / EX-PLANTED DEVICES IMPLANTED DEVICE(S): ICM Loop Recorder - Hardware Installation Coordinator: [employer], Model # Jot DX [id number] , Serial # [id number] DEVICE PARAMETERS CONCLUSIONS / RECOMMENDATIONS Device Conclusions: Successful implantation of a patient activated loop recorder. Device Recommendations: Follow up with Primary Care Physician PROCEDURE MEDICATIONS Fentanyl 50 mcg IV Versed 1 mg IV Oxygen: 2 L/min via nasal cannula Antibiotic given in appropriate timeframe. Ancef 2 Gm IV @ 09/22/2022 10:36:04 Signed By Noble Gloria MD On 09/22/2022 10:50:29 Noble Gloria MD
== END 2022-09-22 13:05 | disposition home or self-care (01) ==
LOC: CVS 09:40
PROVIDERS: PCP Family Medicine; Referring Provider Internal Medicine Cardiovascular Disease; Visit Provider Internal Medicine Cardiovascular Disease
DX: Z45.09 Encounter for adjustment and management of other cardiac device (principal); Z86.73 Personal history of transient ischemic attack (TIA), and cerebral infarction without residual deficits; Q21.12 Patent foramen ovale; I10 Essential (primary) hypertension; Z79.899 Other long term (current) drug therapy; Z79.82 Long term (current) use of aspirin; Z79.02 Long term (current) use of antithrombotics/antiplatelets; K21.9 Gastro-esophageal reflux disease without esophagitis; E78.00 Pure hypercholesterolemia, unspecified
CPT/HCPCS: 33285; 36415; 80048; 93312; 93320; 93325; 99152; J7040; A4216

== ENCOUNTER → 2022-10-16 | Outpatient (CLI) | payer MEDICARE, SELFPAY ==
--- NOTE | 2022-10-16 08:49 | US_ITS ---
STUDY: ULTRASOUND BREAST - RIGHT REASON FOR EXAM: Female, 72 years old. Six-month follow-up examination. TECHNIQUE: Axial and longitudinal images of the RIGHT breast were performed with a high resolution ultrasound transducer. # OF IMAGES: 9 COMPARISON: Comparison is made with prior sonogram of the right breast dated April 18, 2022. FINDINGS: RIGHT Breast: The previously seen thick-walled cystic nodule at the 11:00 position of the breast has decreased in size. It presently measures 5 mm x 5 mm x 4 mm. This is located at the 11:00 position of the breast at 3 cm from nipple. US/Breast Limited Unilateral IMPRESSION: Interval decrease in size of the thick-walled cystic nodule at the 11:00 position of the breast at 3 cm from the nipple. It presently measures 5 mm x 5 mm x 4 mm ASSESSMENT CATEGORY: BIRADS Category 2: Benign. A letter regarding these results will be sent to the patient by the facility within 30 days. Electronically Signed: Nishant Lim MD at 9:49 EDT ,
== END | disposition home or self-care (01) ==
LOC: OPUS 08:48
PROVIDERS: PCP Family Medicine; Referring Provider Surgery; Visit Provider Surgery
DX: N63.11 Unspecified lump in the right breast, upper outer quadrant (principal); Z98.890 Other specified postprocedural states
CPT/HCPCS: 76642

== ENCOUNTER → 2022-11-24 | Outpatient (CLI) | payer MEDICARE, SELFPAY ==
[2022-11-24 16:39] LABS: Free T3 2.9 pg/mL (2.18-3.98); Thyroid Stim Hormone (TSH) 3.02 uIU/mL (0.358-3.74)
[2022-11-24 17:29] LABS: Vitamin B12 290 pg/mL (211-911)
[2022-11-26 17:07] LABS: Thyroglobulin Antibody < 1.0 IU/mL (0.0-0.9)
[2022-11-28 14:10] LABS: Free Kappa Light Chains 20.7 mg/L (3.3-19.4); Free Lambda Light Chains 12.7 mg/L (5.7-26.3); Vitamin B1, Thiamine 84.1 nmol/L (66.5-200.0)
== END | disposition home or self-care (01) ==
LOC: MFPLAB 12:04
PROVIDERS: Psychiatry & Neurology Neurology; PCP Family Medicine; Visit Provider Family Medicine
DX: E04.1 Nontoxic single thyroid nodule (principal); G62.9 Polyneuropathy, unspecified
CPT/HCPCS: 82607; 82746; 83883; 84425; 84443; 84481; 86800

== ENCOUNTER → 2022-12-01 | Outpatient (CLI) | payer MEDICARE, SELFPAY ==
--- NOTE | 2022-12-01 12:43 | US_ITS ---
ACR Level 3 findings have been noted. An addendum which confirms receipt of the report will follow. INDICATION: thyroid nodule EXAMINATION: Ultrasound US Thyroid (eg thyroid, parathyroid, parotid) TECHNIQUE: Bui scale and color doppler imaging was performed of the thyroid gland. COMPARISON: July 14, 2022. FINDINGS: RIGHT THYROID LOBE: 3.8 x 1.6 x 1.4 cm. Homogeneous echotexture with normal vascularity. [ Nodules: 1. Superior thyroid 1.7 x 1.2 x 1.2 cm mixed cystic solid hypoechoic nodule wider than tall with smooth margins and punctate echogenic foci, TI-RADS 4, stable to minimally increased in size from prior exam.. 2. Mid thyroid 1.0 x 0.9 x 0.9 cm solid hypoechoic nodule wider than tall with ill-defined margins and no calcifications, TI RAD 4 LEFT THYROID LOBE: 3.9 x 1.4 x 1.1 cm. Homogeneous echotexture with normal vascularity. [No thyroid nodules are present. Nodules: 1. Superior thyroid 5 mm colloid cyst, TI RAD 1, not significantly changed from prior exam 2. Inferior thyroid 0.7 x 0.4 x 0.6 cm mixed cystic solid hypoechoic nodule wider than tall with smooth margins and no calcifications, TI RAD 3, not significantly changed from prior exam ISTHMUS: 0.2 cm. No thyroid nodules are present. US/Thyroid IMPRESSION: Multiple thyroid nodules, slightly increased in conspicuity in size at the right upper thyroid (1.7 cm TI RAD 4). Fine needle aspiration is recommended for histopathologic diagnosis by ACR TI RADS criteria if not recently performed. 1 cm right mid thyroid TI RAD 4 lesion which is favored to be present on prior imaging though not specifically measured. 1 year follow-up ultrasound is recommended per ACR TI RAD criteria. Electronically Signed: Jose Murphy MD at 10:52 EDT ,
== END | disposition home or self-care (01) ==
LOC: US 12:42
PROVIDERS: PCP Family Medicine; Referring Provider Family Medicine; Visit Provider Family Medicine
DX: E04.1 Nontoxic single thyroid nodule (principal)
CPT/HCPCS: 76536

== ENCOUNTER → 2022-12-18 | Outpatient (CLI) | payer MEDICARE, SELFPAY ==
--- NOTE | 2022-12-18 | FLU_PTH ---
PATIENT: DERRICK SALVADOR LOC: [facility] U#:[id number] AGE/SX: 72/F ROOM: RE12/18/[address]: Dr. Abhi Roach MD : 1950 BED: DIS: 12/18/2022 SPEC #: [id number] RECD: 12/18/22 15:06 STATUS: [place] [facility] #: [id number] SANDRA: 12/18/22 00:[address]: Abhi Roach DEPT: CYTOLOGY RECD BY: Jane Espinoza ENTERED: 12/19/22 08:45 SP TYPE: Fluid OTHR DR: Dr. Stefani Ball MD Tissues: A - Thyroid gland, NOS B - Thyroid gland, NOS Procedures: Special Stain Group II Surgery Specimen Level IV Cytospin Fluid Cytology Other HEADER OPERATION: Fine needle aspiration of thyroid nodule right PRE-OP DIAGNOSIS: Right thyroid nodule TISSUE SUBMITTED: A - Right thyroid nodule fluid, B - Right thyroid nodule x4 slides DIAGNOSIS CYTOLOGY A. Right thyroid nodule fluid, fine needle aspiration (cytospin and cell block): Negative for malignant cells. See comment. B. Right thyroid nodule, fine needle aspiration (smears): Rare follicular cells with minimal atypia are noted in the background of benign follicular/colloid nodule with cystic changes ([place] Category III). Adequate for evaluation. See comment. SJ:rg 12/22/2022 COMMENT A. The specimen consists of rare benign follicular cells and macrophages. B. Afirma is recommended if clinically indicated. Correlation with clinical, radiologic findings and appropriate follow up are necessary. The [place] System for thyroid diagnostic categorization was used in the evaluation of this case. Case has been reviewed in consultation with Dr. Baker who concurs with the above diagnosis. IDC:AM CYTOLOGY STUDY Slides are reviewed. CYTOLOGY GROSS A - Received is 30 ml of red cloudy fluid labeled with the patient's name and and designated per the requisition as right thyroid nodule. Submitted for cytology preparation including cell block. B - Received are four smears labeled with the patient's name and designated per the requisition as right thyroid nodule. Submitted for staining. / shelby 12/19/2022 TC:5 CPT: 29175, 32822 x2
== END | disposition home or self-care (01) ==
PROVIDERS: PCP Family Medicine; Referring Provider Surgery; Visit Provider Surgery
DX: E04.1 Nontoxic single thyroid nodule (principal)
CPT/HCPCS: 88108; 88161; 88305; 88313

== ENCOUNTER → 2022-12-31 | Outpatient (CLI) | payer MEDICARE, SELFPAY ==
--- NOTE | 2022-12-31 13:01 | NEURO ---
NCS and/or EMG Patient Report Ordering Doctor: Shiva Perkins DATE OF SERVICE: 12/31/22 Anabella presents for electrodiagnostic testing of the lower limbs. She reports complaints of tingling in the legs with diffuse pain. Electrodiagnostic findings: Peroneal motor nerve demonstrates normal distal latency, amplitude and conduction velocity bilaterally. Normal tibial motor distal latency, amplitude and conduction velocity bilaterally. Normal peroneal and tibial F-waves. H-reflex is borderline prolonged bilaterally. Sensory responses are within normal limits. Needle EMG testing was performed of the lower limbs. All muscles tested showed no evidence of denervation with normal motor unit action potentials. Electrodiagnostic impression: This is a normal electrodiagnostic study of the lower limbs. There is no electrodiagnostic evidence for lumbosacral radiculopathy or peripheral neuropathy. Multi Select Codes Neurology Neurology Interp Codes: 80274-37 Musc test done w/n test comp (interp) (2) and 99405-79 Nrv cndj test 9-10 studies (interp)
== END | disposition home or self-care (01) ==
PROVIDERS: PCP Family Medicine; Referring Provider Psychiatry & Neurology Neurology; Visit Provider Psychiatry & Neurology Neurology
DX: M79.671 Pain in right foot (principal); M79.672 Pain in left foot; G62.9 Polyneuropathy, unspecified
CPT/HCPCS: 95886; 95911

== ENCOUNTER → 2023-01-05 | Outpatient (CLI) | payer MEDICARE, SELFPAY ==
--- NOTE | 2023-01-05 14:24 | NEURO ---
NCS and/or EMG Patient Report Ordering Doctor: Shiva Perkins DATE OF SERVICE: 01/05/23 Findings: Nerve conduction studies were performed in the right and left upper extremities. The right median motor study recording the abductor pollicis brevis showed a normal amplitude, normal distal latency and normal conduction velocity. The right ulnar motor study recording the abductor digiti minimi showed a normal amplitude, normal distal latency and normal conduction velocity. No conduction block or focal slowing was present across the elbow. The right median sensory response recording digit two showed a normal amplitude, latency and conduction velocity. The right ulnar sensory response recording digit five showed a normal amplitude, latency and conduction velocity. The right radial sensory response recording over the extensor snuff box showed a normal amplitude, latency and conduction velocity. The left median motor study recording the abductor pollicis brevis showed a normal amplitude, normal distal latency and normal conduction velocity. The left ulnar motor study recording the abductor digiti minimi showed a normal amplitude, normal distal latency and normal conduction velocity. No conduction block or focal slowing was present across the elbow. The left median sensory response recording digit two showed a normal amplitude, latency and conduction velocity. The left ulnar sensory response recording digit five showed a normal amplitude, latency and conduction velocity. The left radial sensory response recording over the extensor snuff box showed a normal amplitude, latency and conduction velocity. Needle EMG of the left upper extremity and cervical paraspinal muscles was normal. No denervation was seen in any muscle. All motor unit morphology, activation and recruitment patterns were normal. Impression: This is a normal study. There is no electrophysiologic evidence of entrapment neuropathy in either upper extremity. In addition, there is no electrophysiologic evidence of cervical radiculopathy in the left upper extremity. Kimo Mir D.O. Multi Select Codes Neurology Neurology Interp Codes: 48577-03 Musc test done w/n test comp (interp) and 81242-49 Nrv cndj test 9-10 studies (interp)
== END | disposition home or self-care (01) ==
LOC: PSN 12:21
PROVIDERS: PCP Family Medicine; Referring Provider Psychiatry & Neurology Neurology; Visit Provider Psychiatry & Neurology Neurology
DX: M79.641 Pain in right hand (principal); M79.642 Pain in left hand
CPT/HCPCS: 95886; 95913

== ENCOUNTER → 2023-01-20 | Outpatient (CLI) | payer MEDICARE, SELFPAY ==
[2023-01-22 14:09] LABS: Albumin 3.7 g/dL (2.9-4.4); Alpha-1-Globulins 0.2 g/dL (0.0-0.4); Alpha-2-Globulins 0.7 g/dL (0.4-1.0); Immunoglobulin A 97 mg/dL (64-422); Immunoglobulin G 1008 mg/dL (586-1602); Immunoglobulin M 68 mg/dL (26-217); PROEL- TOTAL PROTEIN 6.6 g/dL (6.0-8.5)
== END | disposition home or self-care (01) ==
LOC: LAB 08:46
PROVIDERS: PCP Family Medicine; Referring Provider Psychiatry & Neurology Neurology; Visit Provider Psychiatry & Neurology Neurology
DX: G62.9 Polyneuropathy, unspecified (principal)
CPT/HCPCS: 36415; 82784; 84165; 86334; 86335

== ENCOUNTER → 2023-01-29 | Outpatient (CLI) | payer MEDICARE, SELFPAY ==
--- NOTE | 2023-01-29 08:00 | FLU_PTH ---
PATIENT: DERRICK SALVADOR LOC: [facility] U#:[id number] AGE/SX: 72/F ROOM: RE01/29/[address]: Dr. Abhi Roach MD : 1950 BED: DIS: 01/29/2023 SPEC #: [id number] RECD: 01/29/23 11:01 STATUS: AL [facility] #: [id number] SANDRA: 01/29/23 08:[address]: Abhi Roach DEPT: CYTOLOGY RECD BY: Jane Espinoza ENTERED: 01/29/23 11:48 SP TYPE: Fluid OTHR DR: Dr. Stefani Ball MD Tissues: A - Thyroid gland, NOS B - Thyroid gland, NOS Procedures: Special Stain Group II Surgery Specimen Level IV Cytospin Fluid Cytology Other HEADER OPERATION: Right thyroid fine needle aspiration PRE-OP DIAGNOSIS: Right thyroid nodules TISSUE SUBMITTED: A - Right thyroid nodule fluid, B - Right thyroid nodule x4 slides DIAGNOSIS CYTOLOGY A. Right thyroid nodule fluid, fine needle aspiration (cytospin and cell block): Negative for malignant cells. See comment. B. Right thyroid nodule, fine needle aspiration (smears): Rare follicular cells with minimal atypia in the background of benign follicular/colloid nodule with extensive cystic changes ([place] Category III). Adequate for evaluation. See comment. SJ:rg 01/30/2023 COMMENT A. The specimen predominantly consists of macrophages and a few benign follicular cells. The [place] System for thyroid diagnostic categorization was used in the evaluation of this case. Per recommendations and a clinician-approved plan (a call was made to the referring doctor about the recommendation), genomic testing (Afirma) has been submitted. Results will be reported as an addendum and faxed to clinician. Correlation with clinical, radiologic findings and appropriate follow up are necessary. CYTOLOGY STUDY Slides are reviewed. CYTOLOGY GROSS A - Received is 30 ml of red cloudy fluid labeled with the patient's name and and designated per the requisition as right thyroid nodule. Submitted for cytology preparation including cell block. B - Received are four smears labeled with the patient's name and designated per the requisition as right thyroid nodule. Submitted for staining. / shelby 01/29/2023 TC:5 [facility]: [id number] x2, [id number] ADDENDUM ADDENDUM ADDENDUM ADDENDUM ADDENDUM ADDENDUM ADDENDUM 03/09/2023 09:01 ADDENDUM 03/09/2023 09:01 ADDENDUM 03/09/2023 09:01 ADDENDUM 03/09/2023 09:01 ADDENDUM 03/09/2023 09:01 AFIRMA RESULTS REPORT RESULTS INTERPRETATION: The result of this 1.7 cm [place] III nodule A is Afirma GSC benign, which suggests a low risk of cancer of approximately 4%. Please see complete report in e-chart or EMR
== END | disposition home or self-care (01) ==
PROVIDERS: PCP Family Medicine; Referring Provider Surgery; Visit Provider Surgery
DX: E04.1 Nontoxic single thyroid nodule (principal)
CPT/HCPCS: 88108; 88161; 88305; 88313

== ENCOUNTER 2023-02-19 20:22 | Emergency (ER) | payer MEDICARE, SELFPAY ==
[2023-02-19 20:23] VITALS: BP 209/88; PULSE 104; RESP 18; TEMP 36.7; O2SAT 97
[2023-02-19 21:28] VITALS: BMI 33.2
[2023-02-19 21:30] VITALS: BP 193/69; PULSE 105; RESP 22; TEMP 37.3
--- NOTE | 2023-02-19 21:58 | ED.VIS.LOWEX ---
HPI <Dr. Se Valencia MD - Last Filed: 02/20/23 01:08> History of Present Illness Chief Complaint: Wound Check Narrative Narrative: Patient presents with left knee pain. Patient had a total knee arthroplasty done at [facility] by Dr. Sahu a little over 2 days ago on Thursday at approximately 1 in the afternoon. She was kept overnight. She was doing well. She went home yesterday. She was actually up walking with her walker. Pain was manageable. She states somewhere around 230 or so in the morning she was woken up. She had a lot of knee pain. Since then she has taken about 7 oxycodone. It was not cutting the pain. She is no longer able to bear weight. She was prescribed some 15 mg morphine which she tried and she is still not able to control the pain. She states its not the leg or calf or thigh area. It is in the knee that hurts. She denies fall or trauma. The checked her temperature about 5 or so times today. The highest he got was 100.5. The triage note mentions drainage. But she has a little bit of blood on a bandage on her left cadet but it is not hurting there. The bandage that is on her knee is thin placed postoperatively and shows no sign of drainage other than an area that is about 5 mm around that has a little speck on the gauze. No indication of significant drainage is noted. Patient is not getting any new swelling. She has had some swelling since surgery. She has no history of DVT or PE. She is not having dyspnea or chest pain or hemoptysis. [facility] <Dr. Se Valencia MD - Last Filed: 02/20/23 01:08> [facility] Medical History Abnormal mammogram of right breast Alteration in vision Blood thinned due to long-term anticoagulant use CVA (cerebral vascular accident) Fatigue GERD (gastroesophageal reflux disease) Hypercholesterolemia Home Medications fluticasone propionate 50 mcg/actuation nasal spray,suspension (Flonase Allergy Relief) 50 mcg intranasal DAILY PRN PRN ALLERGIES 01/10/22 [History Last Taken 01/10/22] losartan 50 mg tablet 50 mg PO DAILY BP 01/10/22 [History Last Taken 01/09/22] metoprolol succinate 100 mg tablet,extended release 24 hr 100 mg PO DAILY BP 01/10/22 [History Last Taken 01/09/22] pregabalin 75 mg capsule 75 mg PO BID PAIN 04/22/22 [History Last Taken 09/22/22] multivitamin 1 tab PO DAILY 07/24/22 [History Last Taken Unknown] aspirin 81 mg tablet,delayed release (Adult Low Dose Aspirin) 81 mg PO DAILY 09/03/22 [History Last Taken Unknown] duloxetine 60 mg capsule,delayed release 60 mg PO DAILY 09/03/22 [History Last Taken Unknown] glycopyrrolate 1 mg tablet 1 mg PO TID 09/03/22 [History Last Taken 09/22/22] clopidogrel 75 mg tablet 75 mg PO DAILY #90 tabs 11/07/22 [Rx Last Taken Unknown] rosuvastatin 20 mg tablet 20 mg PO DAILY #90 tabs 11/07/22 [Rx Last Taken Unknown] folic acid 1 mg tablet 1 mg PO DAILY #90 tabs 01/12/23 [Rx Last Taken Unknown] pantoprazole 40 mg tablet,delayed release (Protonix) 40 mg PO DAILY #30 tabs 01/29/23 [Rx Last Taken Unknown] Allergy/AdvReac Type Severity Reaction Status Date / Time atorvastatin [From Lipitor] Allergy Unknown unknown Verified 02/19/23 21:36 lisinopril Allergy Unknown unknown Verified 02/19/23 21:36 rosuvastatin [From Crestor] Allergy Unknown unknown Verified 02/19/23 22:24 simvastatin [From Zocor] Allergy Unknown unknown Verified 02/19/23 21:36 [id number]-[id number] Reductase Allergy Unknown Intolerant Verified 02/19/23 21:36 Inhibitor Sulfa (Sulfonamide Allergy Unknown Headache, Verified 02/19/23 21:36 Antibiotics) nausea propoxyphene napsylate Allergy Unknown Verified 02/19/23 21:36 [From Darvocet-N] Family History Mother Hypertension High cholesterol Grandmother CVA (cerebral vascular accident) Other Alcoholism Cancer Surgical History H/O arthroscopic knee surgery H/O: hysterectomy History of back surgery History of colonoscopy (~2016) History of left heart catheterization (06/13/14) History of right breast biopsy History of sinus surgery History of squamous cell carcinoma excision Hx of cataract surgery Social History household members: spouse Smoking Status: Never smoker second hand exposure: No alcohol intake: never substance use type: does not use caffeine: Yes Type: coffee Number of servings: 1 what type of physical activity do you participate in: weight training and other frequency: 5-6 times per week meet/mosque: Jain seatbelt use: always ROS <Dr. Se Valencia MD - Last Filed: 02/20/23 01:08> ROS ED Constitutional Constitutional ED: Reports subjective ENT ENT ED: Denies rhinorrhea Cardiovascular Cardiovascular: Denies chest pain or palpitations Respiratory/Chest Respiratory/Chest: Denies cough or dyspnea Gastrointestinal Gastrointestinal: Denies nausea or vomiting Musculoskeletal Musculoskeletal: Reports arthralgias Integumentary Denies abscess or rash Neurologic Neurologic: Denies paresthesias or weakness Hematologic/Lymphatic Hematologic/Lymphatic: Reports easy bleeding and easy bruising Allergic/Immunologic Allergic/Immunologic ED: Denies urticaria EXAM <Dr. Se Valencia MD - Last Filed: 02/20/23 01:08> Physical Exam Narrative Exam Narrative: General: Patient looks uncomfortable. HEENT: Mucous membranes are moist no trauma. Lungs are clear bilaterally. No pain with a deep breath. Saturations are normal at 97% on room air showing no hypoxia. Heart is mildly tachycardic at about 100. But it is regular. Abdomen soft nontender No suprapubic tenderness. Extremities there is a dressing on the front of the knee. It is dry other than an area about 5 mm around that site shows a small speck of what looks like dried blood. The front of the knee is warm but its immediate postoperative. There is mild erythema. She has a small dressing of a 2 x 2 on the left anterior cadet that has a small amount of blood. But it is not tender or warm there. She only has pain really in the knee. I feel no cord. She is not tender along the deep venous system. Const Vital Signs: 02/19/23 20:23 02/19/23 21:30 02/20/23 00:40 Temperature 98.1 F 99.1 F 99.2 F H Temperature Source Temporal Oral Oral Pulse Rate 104 H 105 H 88 Respiratory Rate 18 22 H 18 Blood Pressure 209/88 H 193/69 H 189/85 H Blood Pressure Mean 128 110 119 Pulse Ox 97 95 Oxygen Delivery Method Room Air Room Air <Dr. James Khan DO - Last Filed: 02/20/23 03:15> Physical Exam Const Vital Signs: 02/19/23 20:23 02/19/23 21:30 02/20/23 00:40 Temperature 98.1 F 99.1 F 99.2 F H Temperature Source Temporal Oral Oral Pulse Rate 104 H 105 H 88 Respiratory Rate 18 22 H 18 Blood Pressure 209/88 H 193/69 H 189/85 H Blood Pressure Mean 128 110 119 Pulse Ox 97 95 Oxygen Delivery Method Room Air Room Air MDM <Dr. Se Valencia MD - Last Filed: 02/20/23 01:08> [facility] Narrative Medical decision making narrative: Patient's ultrasound shows no DVT. My independent or potation of her x-ray of her knee shows postoperative changes but no acute abnormality. Similar reading by radiology. They cannot rule out infection certainly. Patient CBC shows a nonspecific mild elevation of white count at 13.3. She has some anemia which is likely from since surgery as there is no other reported source of blood. Electrolytes show minimally low sodium potassium. ESR is normal. CRP is elevated. I discussed the case with Dr. Allison. He agrees that having a clinically relevant infection 2-1/2 days of causing the symptoms is highly unlikely. He would like to get her home. He expects the pain to be markedly better over the next 12 or so hours. She will also be having physical therapy at 10 in the morning and be able to get ultrasound and other therapy that will help her. I talked with the patient about this. She is still very painful. But the pain comes in waves. She describes it as burning. I talked to her more. I find out that she has a history of neuropathy. She has never had diabetes though. Her states she used to be on extremely high doses of gabapentin. She is now on 75 mg of Lyrica. She will take it sometimes 3 times a day and sometimes twice a day. But she has only had it once today. She is clearly overdue for her Lyrica. I think her pain is burning pain. I think the pain is likely due to a combination of the cuff with surgery, the surgery itself, possibly some spasm, and her neuropathy pain. I would still like to try to get her home. We will get her Lyrica and a small dose of Ativan to see if this will relax her enough to get her home. She has pain meds at home. She has therapy tomorrow. If she has issues she can contact the office also. But we need to get her comfortable enough to get in the car and get into her house. Lab Data Attestation: I reviewed the patient's lab results. Labs: Laboratory Results - last 24 hr 02/19/23 22:09 WBC 13.3 H RBC 3.12 L Hgb 9.2 L Hct 28.5 L MCV 91.3 MCH 29.5 MCHC 32.3 RDW Std Deviation 45.3 H RDW Coeff of [place] 13.6 Plt Count 247 MPV 10.3 Immature Gran % (Auto) 0.800 Neut % (Auto) 73.6 H Lymph % (Auto) 13.2 L [place] % (Auto) 8.9 Eos % (Auto) 3.3 Baso % (Auto) 0.2 Absolute Neuts (auto) 9.8 H Absolute Lymphs (auto) 1.75 Nucleated RBC % 0 ESR 24 Sodium 133 L Potassium 3.3 L Chloride 101 Carbon Dioxide 27.0 Anion Gap 5 BUN 14 Creatinine 0.82 Estim Creat Clear Calc 52.05 Est GFR (MDRD) Af Amer 88 Est GFR (MDRD) Non-Af 73 BUN/Creatinine Ratio 17.0 Glucose 112 H Calcium 10.0 C-React Prot Ext Range 197.00 H Radiography Diagnostic Testing: Clinical Impression(s) from Imaging Studies Venous Duplex 02/19/23 22:07 IMPRESSION: No evidence of deep venous thrombosis in the left lower extremity veins. Electronically Signed: Isaac Lange MD at 23:40 EST , Knee X-Ray 02/19/23 23:10 IMPRESSION: Soft tissue swelling and small foci of air. These may represent expected postsurgical changes, but infection is not excluded given the clinical history. Electronically Signed: Isaac Lange MD at 23:36 EST , <Dr. James Khan, DO - Last Filed: 02/20/23 03:15> [facility] Narrative Medical decision making narrative: Patient's ultrasound shows no DVT. My independent or potation of her x-ray of her knee shows postoperative changes but no acute abnormality. Similar reading by radiology. They cannot rule out infection certainly. Patient CBC shows a nonspecific mild elevation of white count at 13.3. She has some anemia which is likely from since surgery as there is no other reported source of blood. Electrolytes show minimally low sodium potassium. ESR is normal. CRP is elevated. I discussed the case with Dr. Allison. He agrees that having a clinically relevant infection 2-1/2 days of causing the symptoms is highly unlikely. He would like to get her home. He expects the pain to be markedly better over the next 12 or so hours. She will also be having physical therapy at 10 in the morning and be able to get ultrasound and other therapy that will help her. I talked with the patient about this. She is still very painful. But the pain comes in waves. She describes it as burning. I talked to her more. I find out that she has a history of neuropathy. She has never had diabetes though. Her states she used to be on extremely high doses of gabapentin. She is now on 75 mg of Lyrica. She will take it sometimes 3 times a day and sometimes twice a day. But she has only had it once today. She is clearly overdue for her Lyrica. I think her pain is burning pain. I think the pain is likely due to a combination of the cuff with surgery, the surgery itself, possibly some spasm, and her neuropathy pain. I would still like to try to get her home. We will get her Lyrica and a small dose of Ativan to see if this will relax her enough to get her home. She has pain meds at home. She has therapy tomorrow. If she has issues she can contact the office also. But we need to get her comfortable enough to get in the car and get into her house. Dr. Khan dictating: Patient signed out to me for monitoring until her Lyrica medicine was therapeutic enough that she felt comfortable going home. On reevaluation the patient is asleep. I woke her to ask if she was okay to go home and she states that she is. Patient is with her and will discharge into his care and he will get her home. Lab Data Labs: Laboratory Results - last 24 hr 02/19/23 22:09 WBC 13.3 H RBC 3.12 L Hgb 9.2 L Hct 28.5 L MCV 91.3 MCH 29.5 MCHC 32.3 RDW Std Deviation 45.3 H RDW Coeff of [place] 13.6 Plt Count 247 MPV 10.3 Immature Gran % (Auto) 0.800 Neut % (Auto) 73.6 H Lymph % (Auto) 13.2 L [place] % (Auto) 8.9 Eos % (Auto) 3.3 Baso % (Auto) 0.2 Absolute Neuts (auto) 9.8 H Absolute Lymphs (auto) 1.75 Nucleated RBC % 0 ESR 24 Sodium 133 L Potassium 3.3 L Chloride 101 Carbon Dioxide 27.0 Anion Gap 5 BUN 14 Creatinine 0.82 Estim Creat Clear Calc 52.05 Est GFR (MDRD) Af Amer 88 Est GFR (MDRD) Non-Af 73 BUN/Creatinine Ratio 17.0 Glucose 112 H Calcium 10.0 C-React Prot Ext Range 197.00 H Radiography Diagnostic Testing: Clinical Impression(s) from Imaging Studies Venous Duplex 02/19/23 22:07 IMPRESSION: No evidence of deep venous thrombosis in the left lower extremity veins. Electronically Signed: Isaac Lange MD at 23:40 EST Reading Location ID and State: [email or web address] / [place] Tel , Service support , Knee X-Ray 02/19/23 23:10 IMPRESSION: Soft tissue swelling and small foci of air. These may represent expected postsurgical changes, but infection is not excluded given the clinical history. Electronically Signed: Isaac Lange MD at 23:36 EST Reading Location ID and State: [facility] / [place] Tel , Service support , Discharge Plan Triage Chief Complaint: Wound Check ED Provider: Se Valencia Dx/Rx/DC Orders Clinical Impression: Acute postoperative pain of knee, History of peripheral neuropathy Instructions: ED Post Op Wound Check, Pain Prescriptions: No Action clopidogrel 75 mg tablet 75 mg PO DAILY Qty: 90 1RF rosuvastatin 20 mg tablet 20 mg PO DAILY Qty: 90 1RF folic acid 1 mg tablet 1 mg PO DAILY Qty: 90 1RF multivitamin Tablet 1 tab PO DAILY duloxetine 60 mg capsule,delayed release(DR/EC) 60 mg PO DAILY aspirin [Adult Low Dose Aspirin] 81 mg tablet,delayed release (DR/EC) 81 mg PO DAILY glycopyrrolate 1 mg tablet 1 mg PO TID pantoprazole [Protonix] 40 mg tablet,delayed release (DR/EC) 40 mg PO DAILY Qty: 30 1RF pregabalin 75 mg capsule 75 mg PO BID losartan 50 mg tablet 50 mg PO DAILY metoprolol succinate 100 mg tablet extended release 24 hr 100 mg PO DAILY fluticasone propionate [Flonase Allergy Relief] 50 mcg/actuation [place],Suspension 50 mcg INTRANASAL DAILY PRN PRN (Reason: ALLERGIES) Primary Care Provider: Stefani Ball Referrals: Stefani Ball MD [Primary Care Provider] - Semaj Sahu MD [Med Staff - Active Staff] - 1-2 Days if not improving (Contact in the morning if any issues.) Disposition Disposition: Home, Self Care
--- NOTE | 2023-02-19 22:07 | US_ITS ---
EXAM: US DUPLEX LEFT LOWER EXTREMITY VEINS CLINICAL INDICATION: LT LEG PAIN TECHNIQUE: Real-time duplex ultrasound scan of the left lower extremity veins integrating B-mode two-dimensional vascular structure, Doppler spectral analysis, color flow Doppler imaging and compression. COMPARISON: No relevant prior studies available. FINDINGS: DEEP VEINS: Unremarkable. No DVT in the visualized common femoral, femoral, proximal deep femoral or popliteal veins. The veins demonstrate normal color flow, are normally compressible, with normal phasic flow and/or augmentation response. SUPERFICIAL VEINS: Unremarkable. No thrombus in the visualized great saphenous vein. SOFT TISSUES: Solis''s cyst measuring 4.8 x 1.4 x 0.8 cm. US/Venous Duplex Imag/Limited/Uni IMPRESSION: No evidence of deep venous thrombosis in the left lower extremity veins. Electronically Signed: Isaac Lange MD at 23:40 EST ,
[2023-02-19 22:17] LABS: Absolute Lymphocyte Count 1.75 X10^3/uL (0.83-4.51); Absolute Neutrophil Count 9.8 X10^3/uL (2.0-7.7); Basophil# 0.03 X10^3/uL; Basophil% 0.2 % (0-1); Eosinophil# 0.44 X10^3/uL; Eosinophils% 3.3 % (0-5); Hematocrit 28.5 % (37-47); Hemoglobin 9.2 g/dL (12.0-15.0); Lymphocyte # 1.75 X10^3/ul (0.83-4.51); Lymphocyte % 13.2 % (19-41); Mean Corp Hgb Conc 32.3 g/dL (32-36); Mean Corpuscular Hgb 29.5 pg (27.0-32.0); Mean Corpuscular Volume 91.3 fL (81-99); Mean Platelet Vol. 10.3 fl (6.2-12.0); Monocyte# 1.18 X10^3/uL; Monocyte% 8.9 % (0-10); NRBC Flagged by Analyzer 0 % (0-5); Neutrophil # 9.75 X10^3/uL (2.7-7.7); Neutrophil % 73.6 % (47-70); Platelet Count 247 K/mm3 (150-450); RBC Distribution Width CV 13.6 % (11.6-14.6); RBC Distribution Width SD 45.3 fl (35.1-43.9); Red Blood Count 3.12 M/mm3 (4.2-5.4); White Blood Count 13.3 K/mm3 (4.4-11.0)
[2023-02-19] MEDS: HYDROmorphone 1 MG/ML Syringe IV (22:20)
[2023-02-19] MEDS: Ondansetron 4 MG/2 ML Vial IV (22:20)
[2023-02-19 22:25] LABS: Erythrocyte Sedimentation Rate 24 mm/hr (0-30)
[2023-02-19 22:43] LABS: Anion Gap 5 (5-15); BUN 14 mg/dL (7-18); Chloride 101 mmol/L (98-107); Creatinine, Serum 0.82 mg/dL (0.55-1.02); EST Glomerular Filtration Rate 73 mL/min (>60); Est Glom Filt Rate - Afr Amer 88 mL/min (>60); Estimated Creatinine Clearance 52.05 ml/min; Glucose 112 mg/dL (74-106); Potassium 3.3 mmol/L (3.5-5.1); Sodium Level 133 mmol/L (136-145)
--- NOTE | 2023-02-19 23:10 | RAD_ITS ---
EXAM: XR LEFT KNEE, 3 VIEWS CLINICAL INDICATION: pain post-surgery TECHNIQUE: Three views of the left knee. COMPARISON: No relevant prior studies available. FINDINGS: BONES/JOINTS: Total knee arthroplasty hardware is normally aligned. Small joint effusion. No acute fracture. No sclerotic or destructive changes observed. SOFT TISSUES: Soft tissue swelling and small foci of air. No radiopaque foreign body. RAD/Knee 3 Views IMPRESSION: Soft tissue swelling and small foci of air. These may represent expected postsurgical changes, but infection is not excluded given the clinical history. Electronically Signed: Isaac Lange MD at 23:36 EST ,
[2023-02-20] MEDS: Morphine 4 MG/ML Syringe IV (00:31)
[2023-02-20] MEDS: Ketorolac 15 MG/ML Vial IV (00:31)
[2023-02-20 00:40] VITALS: BP 189/85; PULSE 88; RESP 18; TEMP 37.3; O2SAT 95
[2023-02-20] MEDS: LORazepam 2 MG/ML Syringe 0.5 MG IV (01:17)
[2023-02-20] MEDS: Pregabalin 75 MG Capsule PO (01:17)
[2023-02-20 03:25] VITALS: BP 189/85; PULSE 88; RESP 18; TEMP 37.3; O2SAT 95
== END 2023-02-20 03:45 | disposition home or self-care (01) ==
PROVIDERS: Emergency Provider Emergency Medicine; PCP Family Medicine; Visit Provider Emergency Medicine
DX: G89.18 Other acute postprocedural pain (principal); M79.605 Pain in left leg; R79.82 Elevated C-reactive protein (CRP); E78.00 Pure hypercholesterolemia, unspecified; Z98.890 Other specified postprocedural states; Z86.73 Personal history of transient ischemic attack (TIA), and cerebral infarction without residual deficits; K21.9 Gastro-esophageal reflux disease without esophagitis; R23.3 Spontaneous ecchymoses
CPT/HCPCS: 73562; 80048; 85025; 85652; 86140; 87040; 93971; 96374; 96375; 99284; A4216; J2405

== ENCOUNTER → 2023-05-08 | Outpatient (CLI) | payer MEDICARE, SELFPAY ==
--- NOTE | 2023-05-08 11:40 | RAD_ITS ---
HISTORY: sinusitis. TECHNIQUE: XR Sinuses Paranasal Min 3 Views. COMPARISON: CT 11/23/2017, MR 08/11/2022. FINDINGS: PARANASAL SINUSES: No significant air fluid levels. OSSEOUS STRUCTURES: Symmetric appearance. Dental amalgam present. ORBITS: No metallic foreign body. RAD/Sinuses min 3 Views IMPRESSION: Unremarkable examination. Electronically Signed: Nancy Chowdhury MD at 11:50 EST ,
--- OUTSIDE RECORDS SUMMARY | 2023-05-08 11:55 | XMS RPT_ITS | CCD ---
Author Name Unknown Address [address] [place] [address] Organization [facility] Care Team Providers Care Manager Plant Name Role Phone Danielle Espinoza Unavailable Danielle Espinoza Unavailable MICHAEL ROSENTHAL, DR LUNDY Primary Care Physician ALAN ROSENTHAL, DR SEMAJ Murry Attending Unavailab glenn PHILLIPS MD, DR SEMAJ Murry Attending Unavailab glenn BALL MD, DR LUNDY Consulting Unavailable MICHAEL ROSENTHAL, DR LUNDY Primary Care Unavailable ALAN ROSENTHAL, DR SEMAJ Murry Referring Unavailab glenn PHILLIPS MD, DR SEMAJ Murry Attending Unavailab glenn PHILLIPS MD, DR SEMAJ Murry Admitting Unavailab glenn [facility]-SEW ON OPERATOR, CRISTA Costa Consulting Unavaila ble Allergies Allergy Classification Reported Allergen(s) Allergy Type Date of Onset Reaction(s) Facility (2 sources) atorvastatin Drug Allergy 06-26-2014 myalgias [facility] Work Phone: [phone] (2 sources) lisinopril Drug Allergy 06-26-2014 cough [facility] Work Phone: [phone] (2 sources) rosuvastatin Drug Allergy 06-06-2014 mylagia [facility] Work Phone: [phone] (2 sources) simvastatin Drug Allergy 12-17-2010 Muscle pain [facility] Work Phone: [phone] (2 sources) Sulfonamides (Antibiotic) drug allergy 12-17-2010 Vomiting, headache [facility] Work Phone: [phone] (2 sources) DARVOCET/DARVON drug allergy 12-17-2010 Nausea [facility] Work Phone: Medications Current Medications Medication Drug Class(es) Dates Sig (Normalized) Sig (Original) acetaminophen 1000 mg oral tablet (1 source) Start: 02-18-2023 take 1 tablet by mouth once daily Tylenol Dose : 1,000 mg = 2 tab(s), Oral, TID, not to exceed 3000 mg/day, 0 Refill(s) Start Date: 02/18/23 Status: Ordered aspirin 81 mg oral tablet (5 sources) Nonsteroidal Anti-inflammatory Drug Start: 02-18-2023 End: 03-20-2023 take 1 tablet by mouth twice daily at mealtime aspirin Dose : 81 mg = 1 tab(s), Oral, BIDM, Take 81 mg aspirin twice daily with food for 4 weeks postoperatively for DVT prophylaxis., 0 Refill(s) Start Date: 02/18/23 Stop Date: 03/20/23 Status: Ordered Completed/Discontinued Medications Medication Drug Class(es) Dates Sig (Normalized) Sig (Original) atorvastatin 10 mg oral tablet (14 sources) HMG-CoA Reductase Inhibitor Start: 06-13-2014 End: 06-26-2014 take 1 tablet by mouth once daily LIPITOR 10 MG TABS One tablet by mouth daily ATORVASTATIN CALCIUM [id number] Reshma Mccloud PA-C Problems Active Problems Problem Classification Problem Date Documented Da te Episodic/Chronic Acute cerebrovascular disease (1 source) Cerebral infarction; Translations: [Cerebral infarction, unspecified] Onset: 02-18-2023 Chronic Deficiency and other anemia (1 source) Anemia; Translations: [Anemia, unspecified] Onset: 02-18-2023 Episodic Disorders of lipid metabolism (4 sources) Hyperlipidemia; Translations: [Hyperlipidemia, unspecified] Onset: 12-17-2010 12-17-2010 Chronic Essential hypertension (3 sources) Hypertensive disorder; Translations: [Essential hypertension] Onset: 12-17-2010 12-17-2010 Chronic Osteoarthritis (2 sources) Unilateral post-traumatic osteoarthritis, left knee; Translations: [Unilateral post-traumatic osteoarthritis, left knee] Onset: 02-17-2023 Chronic Other connective tissue disease (1 source) Artificial knee joint present; Translations: [Presence of left artificial knee joint] Onset: 02-18-2023 Chronic Unclassified (2 sources) Long-term drug therapy; Translations: [Other care home (current) drug therapy] Onset: 12-17-2010 12-17-2010 Past or Other Problems Problem Classification Problem Date Documented Date Episodic/Chronic Nonspecific chest pain (4 sources) Chest pain, unspecified; Translations: [Precordial pain] Onset: 12-17-2010 12-17-2010 Episodic Other circulatory disease (2 sources) Elevated blood pressure; Translations: [Elevated blood-pressure reading, without diagnosis of hypertension] Onset: 02-01-2015 02-01-2015 Episodic Other skin disorders (2 sources) Excessive sweating; Translations: [Generalized hyperhidrosis] Onset: 09-22-2014 09-22-2014 Episodic Unclassified (2 sources) Electrocardiogram abnormal; Translations: [Abnormal electrocardiogram [ECG] [EKG]] Onset: 06-06-2014 06-06-2014 Episodic Unclassified (8 sources) Body mass index (BMI) 29.0-29.9, adult; Translations: [FH: Raised blood lipids] Onset: 06-06-2014 06-06-2014 Episodic Results Test Name Value Interpretation Reference Range Facil ity Vital Signs Date Time Vital Sign Value Performing Clinician Faci [facility] 02-18-2023 13:45-0500 Body temperature 97.7 [degF] DR SEMAJ PHILLIPS MD [facility] 02-18-2023 13:45-0500 Diastolic Blood Pressure Non-Invasive [address] SEMAJ PHILLIPS MD [facility] 02-18-2023 13:45-0500 Heart rate 69 /min DR SEMAJ PHILLIPS MD [facility] 02-18-2023 13:45-0500 Reason For Taking VItal Signs DR SEMAJ PHILLIPS MD [facility] 02-18-2023 13:45-0500 Respiratory rate 20 /min DR SEMAJ PHILLIPS MD [facility] 02-18-2023 13:45-0500 Systolic Blood Pressure Non-Invasive [address] SEMAJ PHILLIPS MD [facility] 02-18-2023 11:21-0500 Body temperature 97.7 [degF] DR SEMAJ PHILLIPS MD [facility] 02-18-2023 11:21-0500 Diastolic Blood Pressure Non-Invasive [address] SEMAJ PHILLIPS MD [facility] 02-18-2023 11:21-0500 Heart rate 50 /min DR SEMAJ PHILLIPS MD [facility] 02-18-2023 11:21-0500 Respiratory rate 20 /min DR SEMAJ PHILLIPS MD [facility] 02-18-2023 11:21-0500 Systolic Blood Pressure Non-Invasive [address] SEMAJ PHILLIPS MD [facility] 02-18-2023 10:53-0500 Body temperature 97.7 [degF] DR SEMAJ PHILLIPS MD [facility] 02-18-2023 10:53-0500 Diastolic Blood Pressure Non-Invasive [address] SEMAJ PHILLIPS MD [facility] 02-18-2023 10:53-0500 Heart rate 84 /min DR SMEAJ PHILLIPS MD [facility] 02-18-2023 10:53-0500 Reason For Taking VItal Signs DR SEMAJ PHILLIPS MD [facility] 02-18-2023 10:53-0500 Respiratory rate 16 /min DR SEMAJ PHILLIPS MD [facility] 02-18-2023 10:53-0500 Systolic Blood Pressure Non-Invasive [address] SEMAJ PHILLIPS MD [facility] 02-18-2023 07:50-0500 Heart rate 77 /min DR SEMAJ PHILLIPS MD [facility] 02-18-2023 07:50-0500 Reason For Taking VItal Signs DR SEMAJ PHILLIPS MD [facility] 02-18-2023 05:15-0500 Heart rate 79 /min DR SEMAJ PHILLIPS MD [facility] 02-17-2023 17:02-0500 Heart rate 85 /min DR SEMAJ PHILLIPS MD [facility] 02-17-2023 16:34-0500 Body height [address] SEMAJ PHILLIPS MD [facility] 02-17-2023 16:34-0500 Body weight 78.[address] SEMAJ PHILLIPS MD [facility] 02-17-2023 16:34-0500 Body weight 30.63 kg/m2 DR SEMAJ PHILLIPS MD [facility] 02-17-2023 14:53-0500 Body temperature 96.98 [degF] DR SEMAJ PHILLIPS MD [facility] 02-17-2023 14:45-0500 Respiratory Rate - Anes 10 br/min DR SEMAJ PHILLIPS MD [facility] 02-17-2023 14:40-0500 Respiratory Rate - Anes 3 br/min DR SEMAJ PHILLIPS MD [facility] 02-17-2023 14:35-0500 Respiratory Rate - Anes 7 br/min DR SEMAJ PHILLIPS MD [facility] 02-17-2023 12:35-0500 Diastolic blood pressure 64 mm[Hg] DR SEMAJ PHILLIPS MD [facility] 02-17-2023 12:35-0500 Systolic blood pressure 162 mm[Hg] DR SEMAJ PHILLIPS MD [facility] 02-17-2023 11:02-0500 Body weight 30.63 kg/m2 DR SEMAJ PHILLIPS MD [facility] 02-17-2023 10:47-0500 Body height [address] SEMAJ PHILLIPS MD [facility] 02-17-2023 10:47-0500 Body temperature 97.88 [degF] DR SEMAJ PHILLIPS MD [facility] 02-17-2023 10:47-0500 Body weight 78.[address] SEMAJ PHILLIPS MD [facility] 01-29-2023 13:42-[address] SEMAJ PHILLIPS MD [facility] 01-29-2023 13:42-0400 Body height [address] SEMAJ PHILLIPS MD [facility] 01-29-2023 13:42-0400 Body weight 78.[address] SEMAJ PHILLIPS MD [facility] 01-29-2023 13:42-0400 Diastolic Blood Pressure Non-Invasive [address] SEMAJ PHILLIPS MD [facility] 01-29-2023 13:42-0400 Heart rate 73 /min DR SEMAJ PHILLIPS MD [facility] 01-29-2023 13:42-0400 Respiratory rate 20 /min DR SEMAJ PHILLIPS MD [facility] 01-29-2023 13:42-0400 Systolic Blood Pressure Non-Invasive [address] SEMAJ PHILLIPS MD [facility] 02-26-2017 14:39-0500 BMI (Body Mass Index) 29.8 kg/m2 [facility] Work Phone: 02-26-2017 14:39-0500 BP Diastolic 60 mm[Hg] [facility] Work Phone: 02-26-2017 14:39-0500 BP Systolic 140 mm[Hg] [facility] Work Phone: 02-26-2017 14:39-0500 Height 162.56 cm [facility] Work Phone: 02-26-2017 14:39-0500 Pulse (Heart Rate) 76 /min [facility] Work Phone: 02-26-2017 14:39-0500 Respiratory Rate 20 /min [facility] Work Phone: 02-26-2017 14:39-0500 Weight 78.74 kg [facility] Work Phone: 01-10-2016 14:35-0400 BSA (Body Surface Area) 1.83 m2 [facility] Work Phone: Encounters Encounter Date Encounter Type Care Provider Facility Start: 02-17-2023 End: 02-18-[address] STEFANI BALL MD Facility:[facility] Start: 02-17-2023 End: 02-18-[address] SEMAJ PHILLIPS MD [facility] Start: 01-29-2023 End: 01-30-[address] SEMAJ PHILLIPS MD Facility:[facility] Start: 01-29-2023 End: 01-30-[address] SEMAJ PHILLIPS MD Facility:[facility] Start: 01-29-2023 End: 01-29-[address] SEMAJ PHILLIPS MD [facility] Start: 01-29-2023 End: 01-29-[address] SEMAJ PHILLIPS MD [facility] Procedures Date Procedure Procedure Detail Performing Clinician Start: 01-14-2016 End: 01-14-2016 Follow Up BP Check Noble Gloria MD Start: 01-10-2016 End: 01-10-2016 Follow Up Appt 1 year Noble Gloria MD Start: 01-10-2016 End: 01-10-2016 MMM Noble Gloria MD Start: 02-01-2015 End: 02-07-2015 Ambulatory BP Monitor 24 HR Noble Estrada i, MD Start: 10-12-2014 End: 10-12-2014 CATTERY OPERATOR Noble Gloria MD Start: 10-12-2014 End: 10-13-2014 Documentation of current medications Noble Gloria MD Start: 10-12-2014 End: 10-12-2014 Follow Up Appt 6 months Igor Bermeo Start: 09-22-2014 End: 10-11-2014 *24 hour urine for metanephrines Noble Gloria MD Start: 09-22-2014 End: 10-11-2014 Vanillylmandelate [Mass/time] in 24 hour Urine Noble Gloria MD Start: 07-04-2014 End: 07-04-2014 CATTERY OPERATOR Reshma Mccloud PA-C Work Phone: Start: 07-04-2014 End: 07-05-2014 Documentation of current medications Reshma Mccloud PA-C Work Phone: Start: 07-04-2014 End: 07-04-2014 Follow Up Appt 3 months Reshma renteria PA-C Work Phone: Start: 07-04-2014 End: 07-04-2014 Follow Up Appt Other Reshma gamez PA-C Work Phone: Start: 06-07-2014 End: 06-07-2014 Nurse, Teaching, Wound Check (no charge) Reshma Mccloud PA-C Work Phone: Start: 06-06-2014 End: 06-08-2014 *BMP Reshma Mccloud PA-C Work Phone: Start: 06-06-2014 End: 06-08-2014 *CBC with Differential Reshma carrasco PA-C Work Phone: Start: 06-06-2014 End: 06-08-2014 *Hepatic Function Panel Reshma renteria PA-C Work Phone: Start: 06-06-2014 End: 06-08-2014 aPTT in Platelet poor plasma by Coagulation assay Reshma Mccloud PA-C Work Phone: Start: 06-06-2014 End: 06-08-2014 Chest x-ray Reshma Mccloud PA-C Work Phone: Start: 06-06-2014 End: 06-07-2014 Documentation of current medications Reshma Mccloud PA-C Work Phone: Start: 06-06-2014 End: 07-04-2014 Ecg routine ecg w/least 12 lds w/i&r Reshma Mccloud PA-C Work Phone: Start: 06-06-2014 End: 07-04-2014 Follow up Appt 3 weeks Reshma carrasco PA-C Work Phone: Start: 06-06-2014 End: 06-08-2014 INR in Platelet poor plasma by Coagulation assay Reshma Mccloud PA-C Work Phone: Start: 06-06-2014 End: 06-08-2014 Lipid 1996 panel - Serum or Plasma Reshma Mccloud PA-C Work Phone: Start: 05-13-2013 End: 05-13-2013 Follow Up Appt 6 months Igor Bermeo Start: 05-13-2013 End: 05-13-2013 MMM Noble Gloria MD Start: 01-11-2013 End: 07-04-2014 *Hepatic Function Panel Igor Bermeo Start: 01-11-2013 End: 07-04-2014 Lipid Marilyn panel - Serum or Plasma Noble Gloria MD Start: 07-12-2012 End: 07-15-2012 *Hepatic Function Panel Igor Bermeo Start: 07-12-2012 End: 07-15-2012 Lipid 1996 panel - Serum or Plasma Noble Gloria MD Start: 06-10-2012 End: 11-01-2013 *Hepatic Function Panel Igor Bermeo Start: 04-22-2012 End: 04-29-2012 *Hepatic Function Panel Igor Bermeo Start: 04-22-2012 End: 11-01-2013 Follow Up Appt 1 year Noble Gloria MD Start: 04-22-2012 End: 04-29-2012 Lipid Marilyn panel - Serum or Plasma Noble Gloria MD Start: 02-03-2012 End: 03-07-2013 *Hepatic Function Panel Igor Bermeo Start: 02-03-2012 End: 04-29-2012 Lipid 1996 panel - Serum or Plasma Noble Gloria MD Start: 12-15-2011 End: 04-29-2012 *Hepatic Function Panel Igor Bermeo Start: 10-22-2011 End: 04-29-2012 *Hepatic Function Panel Igor Bermeo Start: 10-22-2011 End: 04-29-2012 Lipid 1996 panel - Serum or Plasma Noble Gloria MD Start: 04-24-2011 End: 06-09-2011 Carotid duplex Noble Gloria MD Start: 04-24-2011 End: 04-24-2011 Follow Up Appt 1 year Noble Gloria MD Arthroscopy of knee DR MEGHANA PHILLIPS MD Plan of Treatment Date Care Activity Detail Author Start: 02-26-2017 End: 02-26-2017 Appointment Appointment [facility] Work Phone: Start: 02-26-2017 End: 02-26-2017 CATTERY OPERATOR CATTERY OPERATOR [facility] Work Phone: Start: 02-26-2017 End: 02-26-2017 Follow Up Appt Other Follow Up Appt Other [facility] Work Phone: Start: 01-14-2016 End: 01-14-2016 Follow Up BP Check Follow Up BP Check [facility] Work Phone: Start: 01-10-2016 End: 01-10-2016 Follow Up Appt 1 year Follow Up Appt 1 year [facility] Work Phone: Start: 01-10-2016 End: 01-10-2016 MMM MMM [facility] Work Phone: Start: 02-01-2015 End: 02-02-2015 Ambulatory BP Monitor 24 HR Ambulatory BP Monitor 24 HR [facility] Work Phone: Start: 10-12-2014 End: 10-12-2014 CATTERY OPERATOR CATTERY OPERATOR [facility] Work Phone: Start: 10-12-2014 End: 10-12-2014 Follow Up Appt 6 months Follow Up Appt 6 months [facility] Work Phone: Start: 09-22-2014 End: 10-11-2014 *24 hour urine for metanephrines *24 hour urine for metanephrines [facility] Work Phone: Start: 09-22-2014 End: 10-11-2014 Vanillylmandelate [Mass/time] in 24 hour Urine *VMA Urine VMA [facility] Work Phone: Start: 08-05-2014 End: 06-13-2014 *Hepatic Function Panel *Hepatic Function Panel [facility] Work Phone: Start: 08-05-2014 End: 06-13-2014 Lipid panel [AGGREGATE] *Lipid Profile CC PCP [facility] Work Phone: Start: 07-04-2014 End: 07-04-2014 CATTERY OPERATOR CATTERY OPERATOR [facility] Work Phone: Start: 07-04-2014 End: 07-04-2014 Follow Up Appt 3 months Follow Up Appt 3 months [facility] Work Phone: Start: 07-04-2014 End: 07-04-2014 Follow Up Appt Other Follow Up Appt Other [facility] Work Phone: Start: 06-06-2014 End: 06-08-2014 *BMP *BMP [facility] Work Phone: Start: 06-06-2014 End: 06-08-2014 *CBC with Differential *CBC with Differential [facility] Work Phone: Start: 06-06-2014 End: 06-08-2014 *Hepatic Function Panel *Hepatic Function Panel [facility] Work Phone: Start: 06-06-2014 End: 06-08-2014 aPTT *PTT-Partial Thromboplastin Time [facility] Work Phone: Start: 06-06-2014 End: 06-08-2014 Chest x-ray X-Ray, Chest, PA & Lateral [facility] Work Phone: Start: 06-06-2014 End: 07-04-2014 Ecg routine ecg w/least 12 lds w/i&r EKG (In office) [facility] Work Phone: Start: 06-06-2014 End: 06-07-2014 Follow up Appt 3 weeks Follow up Appt 3 weeks [facility] Work Phone: Start: 06-06-2014 End: 06-08-2014 INR Coag RelTime (PPP) *PT/INR [facility] Work Phone: Start: 06-06-2014 End: 06-08-2014 Left Heart Cath Left Heart Cath [facility] Work Phone: Start: 06-06-2014 End: 06-08-2014 Lipid panel [AGGREGATE] *Lipid Profile CC PCP [facility] Work Phone: Start: 06-06-2014 End: 06-06-2014 Thyroid stimulating hormone (TSH) *TSH [facility] Work Phone: Start: 05-13-2013 End: 05-13-2013 Follow Up Appt 6 months Follow Up Appt 6 months [facility] Work Phone: Start: 05-13-2013 End: 05-13-2013 MMM MMM [facility] Work Phone: Start: 01-11-2013 End: 07-04-2014 *Hepatic Function Panel *Hepatic Function Panel [facility] Work Phone: Start: 01-11-2013 End: 07-04-2014 Lipid panel [AGGREGATE] *Lipid Profile [facility] Work Phone: Start: 07-12-2012 End: 07-15-2012 *Hepatic Function Panel *Hepatic Function Panel [facility] Work Phone: Start: 07-12-2012 End: 07-15-2012 Lipid panel [AGGREGATE] *Lipid Profile [facility] Work Phone: Start: 06-10-2012 End: 11-01-2013 *Hepatic Function Panel *Hepatic Function Panel [facility] Work Phone: Start: 04-22-2012 End: 04-29-2012 *Hepatic Function Panel *Hepatic Function Panel [facility] Work Phone: Start: 04-22-2012 End: 11-01-2013 Follow Up Appt 1 year Follow Up Appt 1 year [facility] Work Phone: Start: 04-22-2012 End: 04-29-2012 Lipid panel [AGGREGATE] *Lipid Profile [facility] Work Phone: Start: 02-03-2012 End: 03-07-2013 *Hepatic Function Panel *Hepatic Function Panel [facility] Work Phone: Start: 02-03-2012 End: 04-29-2012 Lipid panel [AGGREGATE] *Lipid Profile [facility] Work Phone: Start: 12-15-2011 End: 04-29-2012 *Hepatic Function Panel *Hepatic Function Panel [facility] Work Phone: Start: 10-22-2011 End: 04-29-2012 *Hepatic Function Panel *Hepatic Function Panel [facility] Work Phone: Start: 10-22-2011 End: 04-29-2012 Lipid panel [AGGREGATE] *Lipid Profile [facility] Work Phone: Start: 04-24-2011 End: 04-24-2011 Carotid duplex Carotid duplex [facility] Work Phone: Start: 04-24-2011 End: 04-24-2011 Follow Up Appt 1 year Follow Up Appt 1 year [facility] Work Phone: Patient Education HYPERLIPIDEMIA [facility] Work Phone: Immunizations Immunization Date Immunization Notes Care Provider Fa [facility] 02-18-2023 influenza virus vacc ine, unspecified formulation DR SEMAJ PHILLIPS MD [facility] 01-17-2022 influenza virus vacc ine, unspecified formulation DR SEMAJ PHILLIPS MD [facility] 04-18-2021 SARS-CoV-2 mRNA (tozinameran) vaccine DR SEMAJ PHILLIPS MD [facility] 12-14-2020 influenza virus vacc ine, unspecified formulation DR SEMAJ PHILLIPS MD [facility] 12-14-[address] SEMAJ PHILLIPS MD [facility] 07-18-2020 SARS-CoV-2 mRNA (tozinameran) vaccine DR SEMAJ PHILLIPS MD [facility] 06-28-2020 SARS-CoV-2 mRNA (tozinameran) vaccine DR SEMAJ PHILLIPS MD [facility] 04-11-2019 tetanus toxoid, redu maile diphtheria toxoid, and acellular pertussis vaccine, adsorbed DR SEMAJ PHILLIPS MD [facility] 03-25-2019 influenza virus vacc ine, unspecified formulation DR SEMAJ PHILLIPS MD [facility] 03-02-2018 pneumococcal polysaccharide vaccine, [address] SEMAJ PHILLIPS MD [facility] 03-10-2017 zoster vaccine, live DR ARY PHILLIPS MD [facility] 12-09-2016 influenza virus vacc ine, unspecified formulation DR SEMAJ PHILLIPS MD [facility] 12-09-2016 pneumococcal conjuga te vaccine, [address] SEMAJ PHILLIPS MD [facility] 01-30-2014 influenza virus vacc ine, unspecified formulation DR SEMAJ PHILLIPS MD [facility] Payers Date Payer Category Payer Private Health Insurance [id number] 1950 Unknown [id number] 1950 Unknown [id number] 1950 Unknown [id number] Social History Date Type Detail Facility Start: 01-29-2023 Tobacco smoking status Never s moked tobacco (finding) [facility] Sex Assigned At Female [facility] Functional Status Date Assessment Result Facility 02-18-2023 Functional Status bilateral knee high aamir lied/on [facility] 02-18-2023 Functional Status Front wheeled walker [facility] 02-18-2023 Functional Status Independent [facility] 02-18-2023 Functional Status Multilevel bassem e, 2nd floor bedroom, 2nd floor bathroom [facility] 02-18-2023 Functional Status ice on [facility] 02-17-2023 Functional Status [facility] 02-17-2023 Functional Status [facility] 02-17-2023 [facility] 02-17-[facility]23 Functional Status Maintained [facility] 01-29-2023 Functional Status Sensory Deficits None A [facility] Mental Status Date Assessment Result Facility 02-18-2023 Mental Status Oriented x 4 [facility] 02-17-2023 Mental Status [facility] 02-17-2023 Mental Status [facility] Clinical Notes 01-29-2023 to 02-18-2023 Note Date & Type Note Facility 02-18-2023 Note Discharge Instructions Thank you for allowing [facility] to assist you with your healthcare needs. The following is important discharge information regarding your hospital visit. Your Care Team Semaj Phillips MD Inpatient Medicine Your Diagnosis Anemia CVA (cerebral vascular accident) HTN (hypertension) Status post total left knee replacement What to do next Follow Up Appointments Follow Up with KAROL PRIEST PA-C, Orthopedic When 03/02/2023 02:00 PM EST Why: This is your post-op appointment. Follow-up as scheduled. Where: [facility] [address] [place] [id number] Follow Up with [facility] When 02/20/2023 10:00 AM EST Why: This is your first physical therapy appointment. Follow-up as scheduled. Where: [facility] [place], [place] [id number]- [phone] Follow Up with STEFANI BALL MD When In 2 weeks Why: Please call to schedule an appointment to go over your labwork results. Where: [address] [place] [id number]- The Following Treatments Have Been Ordered for You Discharge Labs Discharge Outpatient Labwork - Ordered -- CBC, Post-operative Anemia, follow-up within: 2-3 weeks, Results Notify to: STEFANI BALL MD, 02/18/23 8:03:00 EST Discharge Radiology No qualifying data available. Other Therapies No qualifying data available. Post Acute Orders No qualifying data available. Allergies NKA Immunizations This Visit Given Vaccine Dateinfluenza virus vaccine, inactivated 02/18/2023 Medications Please ask your primary doctor or pharmacist before taking any other medication not listed, including over the counter drugs, herbal medications, vitamins and or supplements as they may interact with your home medications. What How Much When Why Instructions Last Dose New acetaminophen (Tylenol) 1,000 Milligram by mouth Three (3) times a day not to exceed 3000 mg/ day New docusate-senna (Senokot S 50 mg-8.6 mg oral tablet) 2 tab(s) by mouth Two (2) times a day Duration: 5 Days Take until first bowel movement, then as needed Pickup at [facility] [address] New ferrous sulfate (ferrous sulfate 325 mg (65 mg elemental iron) oral tablet) 1 tab(s) by mouth Two (2) times a day Duration: 21 Days Pickup at [facility] 18[address] New oxyCODONE (oxyCODONE 5 mg oral tablet ( IMMEDIATE release )) See instructions Status post total left knee replacement 1-2 tab(s) Oral q4h Pickup at [facility] 18[address] Changed aspirin 81 Milligram by mouth Twice daily with meals Duration: 30 Days Take 81 mg aspirin twice daily with food for 4 weeks postoperatively for DVT prophylaxis. Unchanged clopidogrel (clopidogrel 75 mg oral tablet) 1 tab(s) by mouth Every day Unchanged cyanocobalamin (Vitamin B12) 1,000 Microgram by mouth Once a month Unchanged DULoxetine (DULoxetine 60 mg oral delayed release capsule) 1 cap by mouth Once a day Unchanged fluorouracil topical (fluorouracil 5% topical cream) 1 application Topical Two (2) times a day as needed for Rash Unchanged folic acid (folic acid 1 mg oral tablet) 1 tab(s) by mouth Once a day Unchanged glycopyrrolate (glycopyrrolate 1 mg oral tablet) 1 tab(s) by mouth Every day Unchanged losartan (losartan 50 mg oral tablet) 1 tab(s) by mouth Once a day Unchanged metoprolol (Metoprolol Succinate ER 100 mg oral TABLET extended release) 1 tab(s) by mouth Once a day Unchanged multivitamin (Multivitamin) 1 tab(s) by mouth Every day Unchanged pantoprazole (pantoprazole 40 mg oral enteric coated tablet) 1 tab(s) by mouth Once a day before a meal Unchanged pregabalin (pregabalin 75 mg oral capsule) 1 cap by mouth Three (3) times a day Unchanged rosuvastatin (rosuvastatin 20 mg oral tablet) 1 tab(s) by mouth Every day Pharmacy Information [facility] 1811: [id number] [place], [place] [id number] [phone] What How Much When Comments Stop Taking meloxicam (meloxicam 15 mg oral tablet) 1 tab(s) by mouth Once a day Please take this list to your next doctor s visit. Bring all medications you take, including over the counter medications, herbals and other supplements with you to your doctor s visit. Patients and families are reminded to discard old lists and to update any records with all medication providers or retail pharmacies. Medication Leaflets docusate and senna (DOK dorothy sate and SEN a) Colace 2-in-1, Senexon-S, Senna Plus, Senna S, Senna-Time S, Senokot S, SenoSol-SS, Stool Softener + Stimulant Laxative, Stool Softener with Laxative What is the most important information I should know about docusate and senna? Use exactly as directed on the label, or as prescribed by your doctor. What is docusate and senna? Docusate is a stool softener. Senna is a laxative. Docusate and senna is a combination medicine used to treat occasional constipation. Docusate and senna may also be used for purposes not listed in this medication guide. What should I discuss with my healthcare provider before using docusate and senna? You should not use this medicine if you are allergic to docusate or senna, or if you are also taking mineral oil. Ask a doctor or pharmacist if this medicine is safe to use if you have ever had: nausea or vomiting; stomach pain; a sudden change in bowel habits that lasts for 2 weeks or longer; or an intestinal disorder such as Crohn's disease or ulcerative colitis. Ask a doctor before using this medicine if you are or . Do not give this medicine to a child younger than 2 years old without medical advice. How should I use docusate and senna? Use exactly as directed on the label, or as prescribed by your doctor. Take docusate and senna with a full glass of water. It may be best to take this medicine at night or at bedtime. Docusate and senna should cause you to have a bowel movement within 6 to 12 hours. Do not take docusate and senna for longer than 7 days in a row, unless your doctor tells you to. Call your doctor if your constipation does not improve or if it gets worse after taking docusate and senna. Store at room temperature away from moisture and heat. What happens if I miss a dose? Since docusate and senna is used when needed, you may not be on a dosing schedule. Skip any missed dose if it's almost time for your next dose. Do not use two doses at one time. What happens if I overdose? Seek emergency medical attention or call the Poison Help line at . Overdose symptoms may include nausea, vomiting, stomach pain, or diarrhea. What should I avoid while using docusate and senna? Ask a doctor or pharmacist before using any other laxative or other stool softener that may contain ingredients similar to docusate or senna. What are the possible side effects of docusate and senna? Get emergency medical help if you have signs of an allergic reaction: hives; difficulty breathing; swelling of your face, lips, tongue, or throat. Stop using docusate and senna and call your doctor at once if you have: rectal bleeding; severe stomach pain, nausea, vomiting; or no bowel movement. Common side effects may include: gas, bloating; diarrhea; or mild nausea. This is not a complete list of side effects and others may occur. Call your doctor for medical advice about side effects. You may report side effects to FDA at 3-159-QZD-1448. What other drugs will affect docusate and senna? Other drugs may affect docusate and senna, including prescription and tfgp-rgl-qzyyqjz medicines, vitamins, and herbal products. Tell your doctor about all your current medicines and any medicine you start or stop using. Where can I get more information? Your pharmacist can provide more information about docusate and senna. Remember, keep this and all other medicines out of the reach of children, never share your medicines with others, and use this medication only for the indication prescribed. Every effort has been made to ensure that the information provided by [employer]. [employer]') is accurate, up-to-date, and complete, but no guarantee is made to that effect. Drug information contained herein may be time sensitive. [employer] information has been compiled for use by healthcare practitioners and consumers in the [place] and therefore [employer] does not warrant that uses outside of the [place] are appropriate, unless specifically indicated otherwise. [employer] drug information does not endorse drugs, diagnose patients or recommend therapy. [employer] drug information is an informational resource designed to assist licensed healthcare practitioners in caring for their patients and/or to serve consumers viewing this service as a supplement to, and not a substitute for, the expertise, skill, knowledge and judgment of healthcare practitioners. The absence of a warning for a given drug or drug combination in no way should be construed to indicate that the drug or drug combination is safe, effective or appropriate for any given patient. [facility] does not assume any responsibility for any aspect of healthcare administered with the aid of information [facility] provides. The information contained herein is not intended to cover all possible uses, directions, precautions, warnings, drug interactions, allergic reactions, or adverse effects. If you have questions about the drugs you are taking, check with your doctor, nurse or pharmacist. Copyright 4059-5879 [email or web address]. Version: 5.. Revision Date: 11/17/2022. ferrous sulfate (FARE us SUL fate) Feosol, Kingsley-In-Opal, FeroSul, Fe-Tiffani Drops, Infant and Toddler Iron Drops, Slow Fe, Slow Iron, Slow Release Iron What is the most important information I should know about ferrous sulfate? Use only as directed. Tell your doctor if you use other medicines or have other medical conditions or allergies. What is ferrous sulfate? Ferrous sulfate is a type of iron. You normally get iron from the foods you eat. In the body, iron helps your blood carry oxygen to tissues and organs and helps your muscle cells store oxygen. Ferrous sulfate is used to treat iron deficiency. Ferrous sulfate may also be used for purposes not listed in this medication guide. What should I discuss before taking ferrous sulfate? Ask a doctor or pharmacist if this medicine is safe to use if you have ever had: iron overload syndrome; a red blood cell disorder such as thalassemia; or a condition for which you receive regular blood transfusions. Ask a doctor before using this medicine if you are or . Do not give ferrous sulfate to a child without medical advice. How should I take ferrous sulfate? Use exactly as directed on the label, or as prescribed by your doctor. Take on an empty stomach, at least 1 hour before or 2 hours after a meal. Measure liquid medicine carefully. Use the dosing syringe provided, or use a medicine dose-measuring device (not a kitchen spoon). Swallow the tablet whole and do not crush, chew, or break it. You may need to follow a special diet. Follow all instructions of your doctor or dietitian. Learn about the foods you should eat or avoid. Store at room temperature, away from moisture and heat. What happens if I miss a dose? Take the medicine as soon as you can, but skip the missed dose if it is almost time for your next dose. Do not take two doses at one time. What happens if I overdose? Seek emergency medical attention or call the Poison Help line at . Get emergency medical help if a child has accidentally swallowed a tablet. An overdose of iron can be fatal to a young child. Overdose symptoms may include severe vomiting, coughing up blood, bloody diarrhea, urinating less, thirst, dry skin, muscle cramps, dizziness, or fainting. What should I avoid while taking ferrous sulfate? Avoid taking other iron supplements. Do not take any vitamin or mineral supplements without asking a doctor or pharmacist. What are the possible side effects of ferrous sulfate? Get emergency medical help if you have signs of an allergic reaction: hives; difficulty breathing; swelling of your face, lips, tongue, or throat. Call your doctor at once if you have: severe stomach pain or vomiting; cough with bloody mucus or vomit that looks like coffee grounds; fever; or bloody or tarry stools. Common side effects may include: diarrhea, constipation; nausea, stomach pain; green-colored stools; or loss of appetite. This is not a complete list of side effects and others may occur. Call your doctor for medical advice about side effects. You may report side effects to FDA at 6-976-VXW-9176. What other drugs will affect ferrous sulfate? Take your ferrous sulfate dose 2 to 6 hours before or after taking any of the following: an antacid; an antibiotic; or a laxative. This list is not complete. Other drugs may affect ferrous sulfate, including prescription and nmou-oti-ysixllp medicines, vitamins, and herbal products. Not all possible drug interactions are listed here. Where can I get more information? Your pharmacist can provide more information about ferrous sulfate. Remember, keep this and all other medicines out of the reach of children, never share your medicines with others, and use this medication only for the indication prescribed. Every effort has been made to ensure that the information provided by [employer] is accurate, up-to-date, and complete, but no guarantee is made to that effect. Drug information contained herein may be time sensitive. [employer] information has been compiled for use by healthcare practitioners and consumers in the [place] and therefore [employer] does not warrant that uses outside of the [place] are appropriate, unless specifically indicated otherwise. [employer] drug information does not endorse drugs, diagnose patients or recommend therapy. [employer] drug information is an informational resource designed to assist licensed healthcare practitioners in caring for their patients and/or to serve consumers viewing this service as a supplement to, and not a substitute for, the expertise, skill, knowledge and judgment of healthcare practitioners. The absence of a warning for a given drug or drug combination in no way should be construed to indicate that the drug or drug combination is safe, effective or appropriate for any given patient. [facility] does not assume any responsibility for any aspect of healthcare administered with the aid of information [facility] provides. The information contained herein is not intended to cover all possible uses, directions, precautions, warnings, drug interactions, allergic reactions, or adverse effects. If you have questions about the drugs you are taking, check with your doctor, nurse or pharmacist. Copyright 8842-6571 [facility] [employer]. Version: 7.02. Revision Date: 12/31/2022. oxycodone (ox i KOE done) Oxaydo, OxyCONTIN, Roxicodone, RoxyBond, Xtampza ER What is the most important information I should know about oxycodone? MISUSE OF OPIOID MEDICINE CAN CAUSE ADDICTION, OVERDOSE, OR . Keep the medication in a place where others cannot get to it. Taking opioid medicine during may cause life-threatening withdrawal symptoms in the . Fatal side effects can occur if you use opioid medicine with alcohol, or with other drugs that cause drowsiness or slow your breathing. What is oxycodone? Oxycodone is an opioid pain medication used to treat moderate to severe pain. The extended-release form of oxycodone is for vofyrw-pyn-urefh treatment of pain and should not be used on an as-needed basis for pain. Oxycodone may also be used for purposes not listed in this medication guide. What should I discuss with my healthcare provider before using oxycodone? You should not use oxycodone if you are allergic to it, or if you have: severe asthma or breathing problems; or a blockage in your stomach or intestines. You should not use oxycodone unless you are already using a similar opioid medicine and are tolerant to it. Most brands of oxycodone are not approved for use in people under 18. OxyContin should not be given to a child younger than 11 years old. Tell your doctor if you have ever had: breathing problems, sleep apnea; a head injury, or seizures; drug or alcohol addiction, or mental illness; liver or kidney disease; urination problems; or problems with your gallbladder, pancreas, or thyroid. If you use opioid medicine while you are , your baby could become dependent on the drug. This can cause life-threatening withdrawal symptoms in the baby after it is born. Babies born dependent on opioids may need medical treatment for several weeks. Ask a doctor before using opioid medicine if you are . Tell your doctor if you notice severe drowsiness or slow breathing in the nursing baby. How should I use oxycodone? Follow the directions on your prescription label and read all medication guides. Never use oxycodone in larger amounts, or for longer than prescribed. Tell your doctor if you feel an increased urge to take more of this medicine. Never share opioid medicine with another person, especially someone with a history of drug abuse or addiction. MISUSE CAN CAUSE ADDICTION, OVERDOSE, OR . Keep the medication in a place where others cannot get to it. Selling or giving away opioid medicine is against the law. Stop taking all other afajmy-rjr-cwhow opioid pain medicines when you start taking extended-release oxycodone. Take oxycodone with food. Swallow the capsule or tablet whole to avoid exposure to a potentially fatal overdose. Do not crush, chew, break, open, or dissolve. If you cannot swallow a capsule whole, open it and sprinkle the medicine into a spoonful of pudding or applesauce. Swallow the mixture right away without chewing. Do not save it for later use. Never crush or break an oxycodone pill to inhale the powder or mix it into a liquid to inject the drug into your vein. This can cause in . Measure liquid medicine carefully. Use the dosing syringe provided, or use a medicine dose-measuring device (not a kitchen spoon). You should not stop using oxycodone suddenly. Follow your doctor's instructions about tapering your dose. Store at room temperature, away from heat, moisture, and light. Keep track of your medicine. Oxycodone is a drug of abuse and you should be aware if anyone is using your medicine improperly or without a prescription. Do not keep leftover opioid medication. Just one dose can cause in someone using this medicine accidentally or improperly. Ask your pharmacist where to locate a drug take-back disposal program. If there is no take-back program, flush the unused medicine down the toilet. What happens if I miss a dose? Since oxycodone is used for pain, you are not likely to miss a dose. Skip any missed dose if it is almost time for your next dose. Do not use two doses at one time. What happens if I overdose? Seek emergency medical attention or call the Poison Help line at . An opioid overdose can be fatal, especially in a child or other person using the medicine without a prescription. Overdose symptoms may include severe drowsiness, pinpoint pupils, slow breathing, or no breathing. Your doctor may recommend you get naloxone (a medicine to reverse an opioid overdose) and keep it with you at all times. A person caring for you can give the naloxone if you stop breathing or don't wake up. Your caregiver must still get emergency medical help and may need to perform CPR (cardiopulmonary resuscitation) on you while waiting for help to arrive. Anyone can buy naloxone from a pharmacy or local health department. Make sure any person caring for you knows where you keep naloxone and how to use it. What should I avoid while using oxycodone? Do not drink alcohol. Dangerous side effects or could occur. Avoid driving or operating machinery until you know how oxycodone will affect you. Dizziness or severe drowsiness can cause falls or other accidents. Avoid medication errors. Always check the brand and strength of oxycodone you get from the pharmacy. What are the possible side effects of oxycodone? Get emergency medical help if you have signs of an allergic reaction: hives; difficult breathing; swelling of your face, lips, tongue, or throat. Opioid medicine can slow or stop your breathing, and may occur. A person caring for you should give naloxone and/or seek emergency medical attention if you have slow breathing with long pauses, blue colored lips, or if you are hard to wake up. Call your doctor at once if you have: noisy breathing, sighing, shallow breathing, breathing that stops during sleep; a slow heart rate or weak pulse; a light-headed feeling, like you might pass out; confusion, unusual thoughts or behavior; seizure (convulsions); low cortisol levels-- nausea, vomiting, loss of appetite, dizziness, worsening tiredness or weakness; or high levels of serotonin in the body--agitation, hallucinations, fever, sweating, shivering, fast heart rate, muscle stiffness, twitching, loss of coordination, nausea, vomiting, diarrhea. Serious breathing problems may be more likely in older adults and in those who are debilitated or have wasting syndrome or chronic breathing disorders. Common side effects may include: drowsiness, headache, dizziness, tiredness; or constipation, stomach pain, nausea, vomiting. This is not a complete list of side effects and others may occur. Call your doctor for medical advice about side effects. You may report side effects to FDA at 8-657-RSY-2319. What other drugs will affect oxycodone? You may have breathing problems or withdrawal symptoms if you start or stop taking certain other medicines. Tell your doctor if you also use an antibiotic, antifungal medication, heart or blood pressure medication, seizure medication, or medicine to treat HIV or hepatitis C. Opioid medication can interact with many other drugs and cause dangerous side effects or . Be sure your doctor knows if you also use: cold or allergy medicines, bronchodilator asthma/COPD medication, or a diuretic ('water pill'); medicines for motion sickness, irritable bowel syndrome, or overactive bladder; other opioids--opioid pain medicine or prescription cough medicine; a sedative like Valium--diazepam, alprazolam, lorazepam, Xanax, Klonopin, Versed, and others; drugs that make you sleepy or slow your breathing--a sleeping pill, muscle relaxer, medicine to treat mood disorders or mental illness; or drugs that affect serotonin levels in your body--a stimulant, or medicine for depression, Parkinson's disease, migraine headaches, serious infections, or nausea and vomiting. This list is not complete and many other drugs may affect oxycodone. This includes prescription and zglu-cai-libuelx medicines, vitamins, and herbal products. Not all possible drug interactions are listed here. Where can I get more information? Your pharmacist can provide more information about oxycodone. Remember, keep this and all other medicines out of the reach of children, never share your medicines with others, and use this medication only for the indication prescribed. Every effort has been made to ensure that the information provided by [employer] is accurate, up-to-date, and complete, but no guarantee is made to that effect. Drug information contained herein may be time sensitive. [employer] information has been compiled for use by healthcare practitioners and consumers in the [place] and therefore [employer] does not warrant that uses outside of the [place] are appropriate, unless specifically indicated otherwise. [employer] drug information does not endorse drugs, diagnose patients or recommend therapy. [employer] drug information is an informational resource designed to assist licensed healthcare practitioners in caring for their patients and/or to serve consumers viewing this service as a supplement to, and not a substitute for, the expertise, skill, knowledge and judgment of healthcare practitioners. The absence of a warning for a given drug or drug combination in no way should be construed to indicate that the drug or drug combination is safe, effective or appropriate for any given patient. [employer] does not assume any responsibility for any aspect of healthcare administered with the aid of information [employer] provides. The information contained herein is not intended to cover all possible uses, directions, precautions, warnings, drug interactions, allergic reactions, or adverse effects. If you have questions about the drugs you are taking, check with your doctor, nurse or pharmacist. Copyright 9609-8814 [employer]. Version: 16.. Revision Date: 11/14/2022. Education Materials [facility] Post-operative Instructions PLEASE FOLLOW [facility] POST-OP INSTRUCTIONS GIVEN WATCH FOR SIGNS OF INFECTION: call the office ([phone]) if experencing any of the following: (Usually appears 36-48 hours after surgery) Increased temperature (101 degrees Fahrenheit or higher) Redness or swelling Increased uncontrolled pain Foul odor or drainage Calf discomfort Significant swelling Or if having any chest pain, shortness of breath, or difficulty breathing or swallowing call the office or go the nearest Emergency Room. If you have any questions, please call your doctor at the number listed on your follow up instructions. Form: 338A ([id number]) R: 08/17 Additional Information VACCINATE! IT SAVES LIVES! Members of the community who have not yet received the COVID-19 vaccine and would like to receive it can visit one of [facility] vaccine clinics. There are many vaccine clinic locations within the [facility]. For locations and available times, please visit [email or web address] It is important to note that some COVID mobile vaccine clinics are held outdoors and may be canceled in rainy or stormy conditions. To learn more about pediatric vaccinations (ages 5-11), we invite you to visit the [facility] webpage. [email or web address] learn more about the COVID-19 vaccine, we invite you to visit the CDC website for a list of frequently asked questions.https://www.cdc.gov/co ronavirus/2019-ncov/vaccines/faq .html [facility] Patient Portal Access Instructions: Stay connected with your healthcare team and access your personal medical information anytime with the [facility] Patient Portal. Please follow the directions below to create your [facility] account: 1.Access the email account you provided upon registration to the hospital/physician office.2.Look for an invitation email from [facility].3.Open the email and access the invitation link: Accept Invitation to [facility].4.Fill in the required dudley to create your account. To access your account, visit [email or web address]. Click the blue button labeled Access Patient Portal and then log in with the username and password that you created in the steps above. You will be able to view your test results, lab results, a summary of your visits, upcoming appointments and more. There is also a convenient messaging option where you can send secure messages to your provider. In addition, you will have the ability to download any documents or summaries to your computer and/or send the information securely to a physician. Remember that your healthcare information is confidential, so carefully consider who you will allow to register on the [facility] Patient Portal for access to your information. You can also access the [facility] Patient Portal on the [facility] aamir. Simply click on Patient Portal and then log into your account. If you would like to receive a full copy of your medical records, please contact the [facility] Medical Records Department by calling [phone], Thursday through Thursday between 8 a.m. and 4:30 p.m. HOW TO SAFELY DISPOSE OF PRESCRIPTION MEDICATIONS Please use one of the following methods to safely dispose of your unused medications. 1.Use a drug disposal kit: the drug disposal pouch allows you to safely discard your old and unused drugs. Ask your nurse to give you one when you are discharged.2.Visit a local take-back location: Many local pharmacies and police departments have programs that collect old and unwanted prescription drugs. Call your local pharmacy or go to http://ZeroFOX.HowGood/4J8Ct0v to find one close to you.3.Make use of household items: Use cat litter or old coffee grounds to dispose medications if other options are not available. Mix your drugs with these household products, seal them in an airtight container and throw it into the garbage. Call [facility]: [phone] to be sure your drugs can be disposed of in this way. Some medicines may require a different approach.4.Never flush your medications down the toilet. IF YOU HAVE BEEN PRESCRIBED AN OPIOID FOR PAIN If you have been prescribed an opioid (such as hydrocodone, oxycodone or morphine), it is critical to understand the possible side effects and risks of opioid pain medications. Even when taken as directed, opioids can have several side effects including: Tolerance, meaning you might need to take more of a medication for the same pain relief. Nausea, vomiting and/or constipation. Sleepiness, dizziness, dry mouth, confusion, depression or itching. Physical dependence, meaning you have withdrawal symptoms when a medication is stopped, can develop within a few days. KNOW YOUR RESPONSIBILITIES It is important to know exactly how much and how often to take the opioid pain medications you are prescribed. Never take opioids in higher amounts or more often than prescribed. Do not combine opioids with alcohol or other drugs that cause drowsiness, such as benzodiazepines, also known as benzos, including diazepam and alprazolam, muscle relaxants or sleep aids. Never sell or share prescription opioids. This is illegal. Store opioids in a secure place and out of reach of others (including children, family, friends and visitors). The last page of this document has been signed and retained as a CHART COPY. Signatures Patient Education Materials 5 - [facility] Post-op Instruction 11/2016 (52995) Medication Leaflets docusate and senna, ferrous sulfate, oxycodone My discharge plan and instructions have been reviewed and explained to me and I,CASEDERRICK understand my current condition and have read and understand these discharge instructions. I have received a written copy of the plan/instructions. If I have questions, I am aware that I should contact my doctor. Patient/Csr Technician Signature: Date/Time: Relationship to Patient: Witness Name/Signature: Date/Time: [facility] 02-18-2023 Note Date of Service 02/18/2023 Reason for Consultation Medical management Referring Physician Dr. Semaj Phillips History of Present Illness Patient is a 72-year-old female, who follows with Dr. Stefani Ball with a past medical history significant for hypertension, hyperlipidemia, and CVA, presented to [facility] for elective left total knee arthroplasty by Dr. Semaj Phillips. Patient states that she has had left knee pain for quite some time secondary to osteoarthritis. She attempted conservative measures such as therapy, medication, injections without any significant improvement in her pain. She felt that the pain was impacting her quality and opted to proceed with surgical intervention yesterday. Patient is seen postoperatively on the medical surgical unit this morning resting in bed. Introduced self and role of HOT ROLLER hospitalist in her postoperative course. Aware that hospitalist service was consulted for medical management. States that she is doing well this morning and denies any significant pain in her left knee. Further denies any fevers, chills, cough, shortness of breath, chest pain, abdominal pain, or dysuria. Does report some mild nausea this morning but states this is not unusual for her whenever she has had to take narcotics. Labs and vital signs reviewed. Physical exam was unremarkable. Patient aware that her creatinine was mildly elevated this morning. States that she is not surprised by that as she was n.p.o. after midnight on Thursday night and then was a late surgery yesterday. She felt that she was a little dehydrated. Patient states she will follow-up with her PCP to have her BMP rechecked. Hospitalist perspective patient is medically optimized for discharge home today. Defer to the primary team to make final decision to discharge. Review of Systems Review of Systems: Reviewed in detail, including general health, HEENT, cardiovascular, respiratory, gastrointestinal, genitourinary, endocrine, musculoskeletal, neurologic, vascular, skin, and psychiatric. All are negative except for those listed in the History of Present Illness. Physical Exam Vitals and Measurements T: 36.5 C (Oral) TMIN: 36.1 C (Temporal Artery) TMAX: 36.7 C (Oral) HR: 50(Apical) RR: 20 BP: 124/46 SpO2: 94% HT: 160 cm WT: 78.4 kg BMI: 30.63 Weight Dosing Weight: 78.4 kg (02/17/23) Dosing Weight: 78.4 kg (02/17/23) General: No acute distress. Patient is alert and appropriate. Skin: No rash. Skin is warm, dry and intact. HEENT: Head is normocephalic, atraumatic. Pupils are equal, round and reactive. Neck: Supple. No lymphadenopathy, thyromegaly. Lungs: Bilaterally clear but diminished without crepitation or wheeze. Unlabored. Heart: Heart is regular rhythm, S1, S2. No murmurs, gallops or rubs. Abdomen: Abdomen is soft, nontender. Bowels sounds present in all quadrants. Extremities: No clubbing, cyanosis, or edema. Peripheral pulses palpable. No calf tenderness. Left knee surgical dressing is dry and intact. Neurological: Patient is awake and alert to person, place and time. Following simple commands, moving all extremities. Lab Results 02/18 05:17 WBC: 17.6 H Hgb: 9.6 L Hct: 28.6 L Platelet: 273 Neutrophil %: 82.2 H Glucose Level: 125 H Sodium Level: 143 Potassium Level: 4.9 BUN: 22 H Creatinine Lvl (s): 1.14 H Imaging Results and Diagnostics XR Knee 1 or 2 Views Left Result Date: February 17, 2023 Verified By: HECTOR ROSENTHAL, MICHELE Moreno CLINICAL STATEMENT: IMPRESSION: Unremarkable postoperative appearance. Assessment/Plan 1. Status post total left knee replacement Chronic, status post left total knee arthroplasty *POD # 1. *Management per primary team. *Continue PO pain medication and antiemetics. 2. Anemia Chronic *Per primary team, hemoglobin dropped a bit over pre-op labs. Patient to follow-up with PCP to have this rechecked. 3. HTN (hypertension) Chronic *Continue current antihypertensives. *SBP goal of 140 or less. 4. CVA (cerebral vascular accident) Chronic *Continue current medications. Would recommend that patient have her BMP rechecked on discharge too to make sure creatinine back at baseline. Patient seen and evaluated this morning while resting in bed. Physical exam was unremarkable. Lab results and vital signs trends reviewed and were stable. From hospitalist perspective, patient is medically optimized for discharge home today. Hospitalist service will sign-off at this time. Please feel free to re-consult service if there are any changes in condition. Thank you for including hospitalist service in the care of your patient! DVT prophylaxis with aspirin 81 mg PO BID. Code status: Full Code. Labs, diagnostic test and progress notes reviewed as noted in HPI. Plan of care discussed with patient. All questions answered. Patient verbalizes understanding and is agreeable with plan of care. This case was discussed with collaborating physician, Dr. Reese Kaplan. 35 minutes spent reviewing past diagnostic tests, reviewing lab results, vital sign trends, medical history, reviewing medications and ordering home medications, examining patient, collaborating with physician, and documenting in chart. Problem List/Past Medical History Ongoing No qualifying data Historical No qualifying data Procedure/Surgical History Hysterectomy Arthroscopy of knee Nasal septoplasty Cardiac catheterization Total disc arthroplasty (artificial disc), anterior approach, including discectomy with end plate preparation (includes osteophytectomy for nerve root or spinal cord decompression and microdissection); single interspace, cervical Biopsy of thyroid Excision of cataract Implantation of insertable loop recorder Medications Inpatient atorvastatin, 40 mg= 1 tab(s), Oral, qHS Madhavi Aspirin, 81 mg= 1 tab(s), Oral, BIDM Benadryl, 25 mg= 1 tab(s), Oral, q6h, PRN Benadryl, 25 mg= 0.5 mL, IV Push, q6h, PRN Cerovite Advanced Formula, 1 tab(s), Oral, qDayM Colace, 100 mg= 1 cap(s), Oral, BID DULoxetine, 60 mg= 1 cap(s), Oral, qDay ferrous sulfate, 325 mg= 1 tab(s), Oral, BID Fleet Enema, 133 mL, Rectal, qDay, PRN folic acid, 1 mg= 1 tab(s), Oral, qDay losartan, 50 mg= 1 tab(s), Oral, qDay LR 1,000 mL, 1000 mL, Intravenous Milk of Magnesia, 30 mL, Oral, Daily morphine, 2 mg= 1 mL, IV Push, q1h, PRN oxyCODONE 5 mg oral tablet ( IMMEDIATE release ), 5 mg= 1 tab(s), Oral, q4h, PRN oxyCODONE 5 mg oral tablet ( IMMEDIATE release ), 10 mg= 2 tab(s), Oral, q4h, PRN Pepcid, 20 mg= 1 tab(s), Oral, qDay pregabalin 25 mg oral capsule, 75 mg= 3 cap(s), Oral, TID prochlorperazine, 5 mg= 1 mL, IV Push, q6h, PRN Senokot S, 2 tab(s), Oral, BID Toprol-XL, 100 mg= 2 tab(s), Oral, qDay Tylenol, 1000 mg= 2 tab(s), Oral, q8h Tylenol, 650 mg= 2 tab(s), Oral, q4h, PRN Zofran, 4 mg= 2 mL, IV Push, q8h, PRN Home aspirin, 81 mg= 1 tab(s), Oral, BIDM clopidogrel 75 mg oral tablet, 75 mg= 1 tab(s), Oral, Daily DULoxetine 60 mg oral delayed release capsule, 60 mg= 1 cap(s), Oral, qDay ferrous sulfate 325 mg (65 mg elemental iron) oral tablet, 325 mg= 1 tab(s), Oral, BID fluorouracil 5% topical cream, 1 aamir, Topical, BID, PRN, On hold per physician folic acid 1 mg oral tablet, 1 mg= 1 tab(s), Oral, qDay glycopyrrolate 1 mg oral tablet, 1 mg= 1 tab(s), Oral, Daily losartan 50 mg oral tablet, 50 mg= 1 tab(s), Oral, qDay Metoprolol Succinate ER 100 mg oral TABLET extended release, 100 mg= 1 tab(s), Oral, qDay Multivitamin, 1 tab(s), Oral, Daily oxyCODONE 5 mg oral tablet ( IMMEDIATE release ), See Instructions, PRN pantoprazole 40 mg oral enteric coated tablet, 40 mg= 1 tab(s), Oral, qDayAC pregabalin 75 mg oral capsule, 75 mg= 1 cap(s), Oral, TID rosuvastatin 20 mg oral tablet, 20 mg= 1 tab(s), Oral, Daily Senokot S 50 mg-8.6 mg oral tablet, 2 tab(s), Oral, BID Tylenol, 1000 mg= 2 tab(s), Oral, TID Vitamin B12, 1000 mcg, Oral, qmonth Allergies NKA Social History Alcohol Use: Never., 01/29/2023 Home/Environment Domestic Concerns: None. Living situation: Home/Independent. Primary Prosthodontist: Self. Lives In: Multilevel home, 2nd floor bedroom, 2nd floor bathroom. Current Home Treatments None. Professional Skilled Services or Special Community Resources None. Spouse Name: Dora. Marital Status: ., 01/29/2023 Nutrition/Health Type of diet: Regular. Appetite Good. Eating Difficulties None. Skin Breakdown No., 01/29/2023 Substance Abuse Use: Never., 01/29/2023 Tobacco Nicotine Use: Never (less than 100 in lifetime)., 01/29/2023 Family History Hypertension: Mother. Stroke: Grandparent. Immunizations pneumococcal 13-valent conjugate vaccine: 0.5 unknown unit (12/09/16) pneumococcal 23-valent vaccine(Pneumovax: 0.5 unknown unit (03/02/18) SARS-CoV-2 mRNA (tozinameran) vaccine: 0.3 unknown unit (04/18/21) SARS-CoV-2 mRNA (tozinameran) vaccine: 0.5 unknown unit (07/18/20) SARS-CoV-2 mRNA (tozinameran) vaccine: 0.5 unknown unit (06/28/20) tetanus/diphth/pertuss (Tdap) adult/adol: 0.5 unknown unit (04/11/19) zoster vaccine live: 0.65 unknown unit (03/10/17) zoster vaccine, inactivated: 1 unknown unit (12/14/20) Digitally Signed by CRISTA HILTON on 02/18/2023 01:38 PM [facility] 02-18-2023 Hospital Discharg e instructions Patient Education 02/18/2023 08:04:48 5 - [facility] Post-op Instruction 11/2016 (46640) [facility] Post-operative Instructions PLEASE FOLLOW [facility] POST-OP INSTRUCTIONS GIVEN WATCH FOR SIGNS OF INFECTION: call the office ([phone]) if experencing any of the following: (Usually appears 36-48 hours after surgery) Increased temperature (101 degrees Fahrenheit or higher) Redness or swelling Increased uncontrolled pain Foul odor or drainage Calf discomfort Significant swelling Or if having any chest pain, shortness of breath, or difficulty breathing or swallowing call the office or go the nearest Emergency Room. If you have any questions, please call your doctor at the number listed on your follow up instructions. Form: 338A (01221) R: 08/17 Follow Up Care 12/22/2022 12:41:06 With:STEFANI BALL MD Address: [address] [place] [phone]- When:Within 2 Week(s) Comments:Please call to schedule an appointment to go over your labwork results. With:[facility] Address: [address] [place] [phone]- [phone] When:02/20/2023 10:00:00 Comments:This is your first physical therapy appointment. Follow-up as scheduled. With:KAROL PRIEST PA-C, Orthopedic Address: [facility] [address] [place] [phone] When:03/02/2023 14:00:00 Comments:This is your post-op appointment. Follow-up as scheduled. [facility] 02-18-2023 Note Date of Service February 18, 2023 Subjective The patient was sitting in bed upon examination. Patient denies any chest pain, shortness of breath, dizziness, lightheadedness, nausea or vomiting, or calf pain. No adverse overnight events. Pain has been controlled on medications. Patient overall is doing well this morning. Her pain is controlled today. Patient has had some drop in hemoglobin currently at 9.6. She denies any dizziness or lightheadedness. She already takes folic acid daily. She has had no past history of anemia. Patient has been up and walking without difficulty. She does have past history of cerebrovascular accident. Currently takes Plavix and aspirin. Objective Vitals and Measurements T: 36.4 C (Oral) TMIN: 36.1 C (Temporal Artery) TMAX: 36.7 C (Oral) HR: 77(Monitored) RR: 16 BP: 169/74 BP: 162/64(Line) SpO2: 96% HT: 160 cm WT: 78.4 kg BMI: 30.63 Intake and Output 7AM Yesterday to 7AM Today Intake and Output (Last 24 hours) Intake Administration Information 1748.92 Oral Intake 380.00 Supplement Intake 240.00 Output Intra-Op EBL 50.00 Urine Count 1.00 Total Summary Total Intake 2368.92 Total Output 50.00 Fluid Balance 2318.92 Physical Exam Vital signs stable, afebrile. Some fluctuations in elevated blood pressure but asymptomatic. SCDs and KE hose are in place bilaterally Patient is able to plantarflex and dorsiflex actively Sensation is intact to saphenous, sural, superficial and deep peroneal, and tibial distribution Dressings are clean dry and intact Negative signs and symptoms of DVT, negative Homans bilaterally Weight Dosing Weight: 78.4 kg (02/17/23) Dosing Weight: 78.4 kg (02/17/23) Medications Medications (26) Active Scheduled: (16) acetaminophen 500 mg Tablet 1,000 mg 2 tab(s), Oral, q8h aspirin 81 mg Chewable 81 mg 1 tab(s), Oral, BIDM atorvastatin 40 mg tablet 40 mg 1 tab(s), Oral, qHS bisacodyl 5 mg EC tablet 10 mg 2 tab(s), Oral, Once docusate sodium 100 mg Capsule 100 mg 1 cap(s), Oral, BID docusate-senna (Senokot S) 50 mg-8.6 mg Tablet 2 tab(s), Oral, BID duloxetine [address] capsule 60 mg 1 cap(s), Oral, qDay famotidine 20 mg tablet 20 mg 1 tab(s), Oral, qDay ferrous sulfate 325 mg Tablet 325 mg 1 tab(s), Oral, BID folic acid 1 mg tablet 1 mg 1 tab(s), Oral, qDay losartan 50 mg tablet 50 mg 1 tab(s), Oral, qDay magnesium hydroxide 8% Suspension 30 mL UD 30 mL, Oral, Daily metoprolol succinate 50 mg ER tablet 100 mg 2 tab(s), Oral, qDay multivitamin (Myadec) with minerals Therapeutic Multiple Vitamins with Minerals Tablet 1 tab(s), Oral, qDayM ondansetron 2 mg/ 1 mL 2 mL INJ 4 mg 2 mL, IV Push, q8h pregabalin 75 mg capsule 75 mg 1 cap(s), Oral, TID Continuous: (1) Lactated Ringers 1,000 mL 1,000 mL, Intravenous, 100 mL/hr PRN: (9) acetaminophen 325 mg Tablet 650 mg 2 tab(s), Oral, q4h diphenhydramine 25 mg tablet 25 mg 1 tab(s), Oral, q6h diphenhyDRAMINE 50 mg/mL (1 mL) INJ 25 mg 0.5 mL, IV Push, q6h morphine 2 mg/mL 1 mL syringe 2 mg 1 mL, IV Push, q1h ondansetron 2 mg/ 1 mL 2 mL INJ 4 mg 2 mL, IV Push, q8h oxycodone 5 mg tablet (immediate release) 5 mg 1 tab(s), Oral, q4h oxycodone 5 mg tablet (immediate release) 10 mg 2 tab(s), Oral, q4h prochlorperazine 10 mg/2 mL vial 5 mg 1 mL, IV Push, q6h sodium biphosphate-sodium phosphate 19 gm-7 gm Enema 133 mL, Rectal, qDay Lab Results 02/18 05:17 WBC: 17.6 H Hgb: 9.6 L Hct: 28.6 L Platelet: 273 Neutrophil %: 82.2 H Glucose Level: 125 H Sodium Level: 143 Potassium Level: 4.9 BUN: 22 H Creatinine Lvl (s): 1.14 H EKG No qualifying data available. Assessment/Plan Orders: ferrous sulfate, Start: 02/18/23 7:55:00 EST, Dose = 325 mg, = 1 tab(s), Oral, BID, 02/18/23 7:55:00 EST 1. Status post left total knee arthroplasty postop day #1 2. Continue pain medications: Tylenol and oxycodone 3. DVT prophylaxis: Take 81 mg aspirin twice daily with food for 4 weeks postoperatively for DVT prophylaxis. Patient denies past history of DVT or pulmonary embolism. After 4 weeks she will go back to her normal 81 mg aspirin daily. 4. Physical therapy: Weightbearing as tolerated with walker 5. H & H: 9.6/28.6, asymptomatic. Postoperative anemia secondary from surgical blood loss versus dilutional component without intraoperative complications. Estimated blood loss today 50 mL. Preoperatively patient's hemoglobin/hematocrit was 12.2/37.1. Patient already takes folic acid. She will be placed on ferrous sulfate twice daily. We discussed the possibility of constipation with this medication. If she has any difficulty with this medication she will contact her office and we discussed reducing it down to possibly once daily. Lab order will be placed on chart and patient will follow-up with her primary care physician in 2-3 weeks for reassessment. At that point defer to medicine/primary care physician for continued treatment with the postoperative anemia. Patient voiced understanding and agreement. 6. Reactive leukocytosis: Currently 17.6, afebrile. Patient did receive Decadron intraoperatively. No clinical signs of infection. 7. Encouraged incentive spirometry 8. Continue postoperative medical management per medicine: Case was discussed with medicine and if medically stable okay from discharge today from orthopedic standpoint. Slight elevation in creatinine postoperatively. Stable BUN. 9. Disposition: Plan will be for probable discharge home today as long as medically cleared, tolerates therapy, and pain is well controlled. She would like her medications E scribed to [facility] in [facility]. She will follow-up per postoperative instructions. Upon discharge if there are any concerns or questions she will contact our office. Patient is doing well orthopedically this morning. Case was discussed with medicine. If she is cleared from medical standpoint okay for discharge home today orthopedically as long as she tolerates therapy and pain is controlled. I have reviewed the [place] Automated Rx Reporting System (OARRS) report for this patient for refill pattern and other prescriber involvement as part of the appropriate surveillance for the provision of acute and chronic controlled medications. The report was requested and reviewed on the date of this entry, and was considered in the prescribing process This dictation was created using voice recognition software. Phonetic and/or grammatical errors may exist. Digitally Signed by KAROL PRIEST PA-C on 02/18/2023 08:03 AM [facility] 02-17-2023 Note ORIGINAL EXAMINATION: TWO XRAY VIEWS OF THE LEFT KNEE02/17/2023 3:07 pm KNEE 1 or 2 VIEWS LEFT COMPARISON: None HISTORY: ORDERING SYSTEM PROVIDED HISTORY: Reason for Exam: Status Post Arthroplasty FINDINGS: There is no evidence of acute fracture or subluxation. Total knee arthroplasty is present, surgical hardware appears well seated and in good position. There is postsurgical change in the soft tissues. IMPRESSION: Unremarkable postoperative appearance. Interpreted by: Michele Urias MD Preliminary Report By: Michele Urias MD Electronically signed By Michele Urias MD Dictated Date: 02/17/2023 3:45:54 PM Prelim Date: 02/17/2023 3:46:20 PM Sign Date: 02/17/2023 3:46:20 PM Ordering Provider: SEMAJ PHILLIPS [facility] 02-17-2023 Anesthesiology Consult note Patient: DERRICK SALVADOR Age: 72 years Sex: Female : 1950 Associated Diagnoses: None Author: JOANNA FELDMAN APRN-COMBINATION MACHINE TOOL OPERATOR Preoperative Information Time of last food or liquid consumption: 02/16/2023 23:59:00 Anesthesia history Patient's history: negative. Family's history: negative. Review of Systems Ear/Nose/Mouth/Throat: Negative except as documented in history of present illness. Respiratory: Negative except as documented in history of present illness. Cardiovascular: Negative except as documented in history of present illness. Gastrointestinal: Negative except as documented in history of present illness. Genitourinary: Negative except as documented in history of present illness. Endocrine: Negative except as documented in history of present illness. Musculoskeletal: Negative except as documented in history of present illness. Integumentary: Negative except as documented in history of present illness. Neurologic: Negative except as documented in history of present illness. Health Status Allergies: Allergic Reactions (Selected) NKA, Allergies (1) ActiveReaction NKANone Documented Current medications: (Selected) Inpatient Medications Ordered Betadine 10% topical solution: 17.5 mL, mL/hr, Topical (INT), PREOP pharm Bicitra: 30 mL, Oral, PREOP pharm Cyklokapron IVPB: 2,000 mg, 20 mL, 0 mL/hr, Topical (INT), PREOP pharm Decadron: 10 mg, 1 mL, IV Push, AsDirected LR 1,000 mL: 20 mL/hr, Intravenous, Stop: 02/17/23 23:59:00 EST Naropin 25 mg + Toradol 15 mg + EPINEPHrine 1 mg/mL injectable solution 0.3 mg + morphine 2.5 mg...: 25 mg, 5 mL, mL/hr, Other, PREOP pharm Naropin 25 mg + Toradol 15 mg + EPINEPHrine 1 mg/mL injectable solution 0.3 mg + morphine 2.5 mg...: 25 mg, 5 mL, mL/hr, Other, PREOP pharm ceFAZolin: 2 gram(s), 200 mL/hr, IV Piggyback, PREOP pharm Documented Medications Documented DULoxetine 60 mg oral delayed release capsule: 60 mg, 1 cap(s), Oral, qDay, 0 Refill(s) Metoprolol Succinate ER 100 mg oral TABLET extended release: 100 mg, 1 tab(s), Oral, qDay, 30 tab(s), 0 Refill(s) Multivitamin: 1 tab(s), Oral, Daily, 0 Refill(s) Vitamin B12: 1,000 mcg, Oral, qmonth, 0 Refill(s) aspirin 81 mg oral delayed release tablet: 81 mg, 1 tab(s), Oral, Daily, 0 Refill(s) clopidogrel 75 mg oral tablet: 75 mg, 1 tab(s), Oral, Daily, 0 Refill(s) fluorouracil 5% topical cream: 1 aamir, Topical, BID, PRN: Rash, 0 Refill(s) folic acid 1 mg oral tablet: 1 mg, 1 tab(s), Oral, qDay, 30 tab(s), 0 Refill(s) glycopyrrolate 1 mg oral tablet: 1 mg, 1 tab(s), Oral, Daily losartan 50 mg oral tablet: 50 mg, 1 tab(s), Oral, qDay, 30 tab(s), 0 Refill(s) meloxicam 15 mg oral tablet: 15 mg, 1 tab(s), Oral, qDay, 30 tab(s), 0 Refill(s) pantoprazole 40 mg oral enteric coated tablet: 40 mg, 1 tab(s), Oral, qDayAC, 0 Refill(s) pregabalin 75 mg oral capsule: 75 mg, 1 cap(s), Oral, TID, 90 cap(s), 0 Refill(s) rosuvastatin 20 mg oral tablet: 20 mg, 1 tab(s), Oral, Daily, 0 Refill(s), Medications (8) Active Scheduled: (7) ceFAZolin 2 gram(s), IV Piggyback, PREOP pharm citric acid-sodium citrate 334 mg-500 mg/5 mL (30 mL) Opal UD 30 mL, Oral, PREOP pharm dexamethasone 10 mg/mL (1mL) SDV 10 mg 1 mL, IV Push, AsDirected povidone iodine topical 17.5 mL, Topical (INT), PREOP pharm ropivacaine 25 mg + ketorolac 15 mg + epinephrine 0.3 mg + morphine 2.5 mg 25 mg 5 mL, Other, PREOP pharm ropivacaine 25 mg + ketorolac 15 mg + epinephrine 0.3 mg + morphine 2.5 mg 25 mg 5 mL, Other, PREOP pharm tranexamic acid 2,000 mg 20 mL, Topical (INT), PREOP pharm Continuous: (1) Lactated Ringers 1,000 mL 1,000 mL, Intravenous, 20 mL/hr PRN: (0) Problem list: No problem items selected or recorded., Active Problems (8) CVA (cerebral vascular accident) GERD (gastroesophageal reflux disease) HTN (hypertension) Neuropathy OA (osteoarthritis) PFO (patent foramen ovale) Raynaud's disease Thyroid nodule Histories Past Medical History: No active or resolved past medical history items have been selected or recorded. Family History: No family history items have been selected or recorded. Procedure history: Hysterectomy (922678802). Total disc arthroplasty (artificial disc), anterior approach, including discectomy with end plate preparation (includes osteophytectomy for nerve root or spinal cord decompression and microdissection); single interspace, cervical (03250). Arthroscopy of knee ([id number]). Comments: 01/29/2023 14:59 Dottie Solis RN bilateral Biopsy of thyroid (94544524). Nasal septoplasty (09296939). Cardiac catheterization (96048979). Excision of cataract (38130809). Comments: 01/29/2023 14:59 Dottie Solis RN bilateral Implantation of insertable loop recorder ([id number]). Social History Social & Psychosocial Habits Alcohol 02/17/2023 Use: Never Substance Abuse 02/17/2023 Use: Never Tobacco 02/17/2023 Tobacco Use: Never (less than 100 in l Home/Environment 02/17/2023 Domestic Concerns None Living situation: Home/Independent Primary Prosthodontist: Self Lives In 2nd floor bathroom, 2nd floor bedroom, Multilevel home Current Home Treatments None Special Services and Community Resources None Spouse Name Dora Marital Status of Patient if Patient Independent Adult: Nutrition/Health 02/17/2023 Type of diet: Regular Appetite Good Eating Difficulties None Skin Breakdown/Decubitus Ulcers No . Physical Examination Vital Signs 02/17/2023 10:47 EST Temperature Temporal Artery 36.6 DegC Apical Heart Rate 73 bpm Respiratory Rate 13 br/min LOW Systolic Blood Pressure Non-Invasive 128 mmHg Diastolic Blood Pressure Non-Invasive 74 mmHg Vital Signs(last 24 hrs) Last Charted Resp Rate L 13br/min (FEB 17 10:47) TJF902 mmHg (FEB 17 10:47) DBP74 mmHg (FEB 17 10:47) BMI30.63 (FEB 17 11:02) Measurements from flowsheet : Measurements 02/17/2023 11:02 EST Body Mass Index 30.63 kg/m2 02/17/2023 10:47 EST Height 160 cm Height in inches 63 inch(es) Admission Weight 78.4 kg Weight Lbs 172.5 lb [place] Body Weight 52.38 kg Pain assessment: Pain Assessment 02/17/2023 11:43 EST Primary Pain Intensity 5 02/17/2023 10:47 EST Primary Pain Location Leg Primary Pain Laterality Left Primary Pain Intensity 4 Primary Pain Quality Radiating, Sharp Pain Scale Type 0-10 Pain scale . General: Alert and oriented. Airway: Normal neck range of motion. Mallampati classification: II (soft palate, fauces, uvula visible). Head: Normocephalic. Dentition Evaluation: Intact, Own teeth. Neck: Full range of motion. Respiratory: Lungs are clear to auscultation. Cardiovascular: Normal rate. Heart Sounds: Normal. Gastrointestinal: Soft. Musculoskeletal Normal range of motion. Integumentary: Intact, Warm, Dry. Neurologic: Alert, Oriented. Review / Management Results review: No qualifying data available , Lab results 02/17/2023 12:23 EST SN - GCD - Post-operative Diagnosis UNILATERAL POST-TRAUMATIC OSTEOARTHRITIS, LEFT KNEE. EFFUSION, LEFT KNEE. VARUS DEFORMITY, LEFT KNEE SN - GCD - Case Level Level 6 02/17/2023 12:22 EST SN - DRS - Site and Details LEFT KNEE PROCEDURE SITE X1 STAPLED CLOSE, 2 ARRAY SITES 02/17/2023 12:21 EST SN - Cul - Culture Type No Specimen per Surgeon 02/17/2023 12:21 EST SN - CAt - Case Attendee SN - CAt - Case Attendee SN - CAt - Case Attendee SN - CAt - Case Attendee SN - CAt - Case Attendee SN - CAt - Case Attendee SN - CAt - Case Attendee SN - CAt - Case Attendee SN - CAt - Case Attendee SN - CAt - Case Attendee SN - CAt - Case Attendee SN - CAt - Case Attendee SN - CAt - Case Attendee SN - CAt - Case Attendee SN - CAt - Role Performed Primary Surgeon SN - CAt - Role Performed COMBINATION MACHINE TOOL OPERATOR SN - CAt - Role Performed Physician Linux Programmer SN - CAt - Role Performed Consumer Lending Manager 1 SN - CAt - Role Performed Scrub 1 SN - CAt - Role Performed Chief Design Engineer 1 SN - CAt - Role Performed Collar Runner 02/17/2023 11:56 EST SN - Preop - CTm Pt in SDS Room 02/17/2023 10:50 SN - Preop - CTm Pt Ready for OR/Proced 02/17/2023 11:56 02/17/2023 11:55 EST Antecubital Right 02/17/2023 20 gauge Peripheral IV Activity: Insert new site Peripheral IV Dressing Condition: Clean, Dry, Intact Peripheral IV Dressing Activity: Applied, Transparent dressing Peripheral IV Line Status/Patency: Flushes easily Peripheral IV Line Care: Secured with tape Peripheral IV Site Condition: No complications Peripheral IV Equipment: Extension set, IV Pump Peripheral IV Number of Attempts: 2 Last Void 02/17/2023 11:55 02/17/2023 11:43 EST Primary Pain Intensity 5 famotidine 20 mg mg oxyCODONE 10 mg mg 02/17/2023 11:29 EST Lactated Ringers Injection 1,000 mL mL 02/17/2023 11:02 EST Designated Person #1 We May Share ADAM Salvador [phone] Designated Person #1 Relationship Spouse Designated Person #2 We May Share ADAM Nicolas [phone] Designated Person #2 Relationship Daughter Privacy Restrictions Requested None Body Mass Index 30.63 kg/m2 Status N/A Sensory Deficits None Sleep Apnea Snore No Sleep Apnea Tired No Sleep Apnea Obstruction No Sleep Apnea Pressure Yes Sleep Apnea BMI No Sleep Apnea Age Yes Sleep Apnea Neck No Sleep Apnea Gender No Sleep Apnea Score 2 Diagnosed With Sleep Apnea No Advanced Directives Yes Advance Directive Type [place] Durable Power of Truck Shop Mechanic for [facility] [place], [place] Declaration (Living Will) Advance Directive Location Unable to obtain copy Infectious Disease Symptoms Patient states no symptoms Infectious Disease Recent Exposure No Alcohol and Drug Use No Employee of Institutional Living No Health Care Employee No History of Exposure to TB No History of Positive Chest X-Ray for TB No History of Positive TB Skin Test No Homeless No Known Immunosuppression No Recent Immigrant No Resident of Institutional Living No Bloody Sputum No Fatigue No Fever No Loss of Appetite No Night Sweats No Persistent Cough > 3 Weeks No Weight Loss No Pre-Op Patient Education NPO after midnight, No makeup, No jewelry, Responsible Alliance Party, Aware of surgery location, Pre-op education done, 2 bottles CHG wash with instructions given, Instructed to take ordered medications, Total Joint Replacement/Colorectal Book Given, Anesthesia block education provided SN - Preprocedure Comments Spoke with patient, Verbalizes/Nonverbally indicates understanding, Other: Pantoprazole, Pregabalin Barriers to Learning None evident Teaching Method Explanation, Printed materials Preferred Spoken Language Azeri Preferred Written Language Azeri Teaching Evaluation No further teaching needed Safety Brochure Information Reviewed Yes Antonieta Kramer Video Viewed No Information Given by Patient Patient's Current Physicians Patient's Current Physicians Discharge To, Anticipated Home with family care Prev Test Positive/Diagnosis w/COVID-19 Yes Previous COVID-19 Positive Date 2020 Current Quarantine/Isolated any Illness No Any Contact with Sick Animals/Birds No Traveled Anywhere in Last 30 Days No Lost Weight Unintentionally Recently No Eat Poorly Due to Decreased Appetite No Total MST Score 0 N/A Personal Devices, Patient Valuables Glasses Anesthesia/Transfusions Prior anesthesia Admission Note-Nursing Same Day Patient History 02/17/2023 10:54 EST Urinary Elimination Voiding, no difficulties IV Present Present Allergies Yes Anesthesia Extension Set Applied Yes Used Car Salesperson On Yes Consent Form Signed Yes Patient Dressed In Hospital gown Pre-op Preparation Glasses removed CHG Preoperative Wash/Wipe Night before procedure, Day of procedure Preop Nasal Swab Povidone-Iodine CHG Skin Prep Completed for Eligible Surgery History & Physical Update On Chart Yes History & Physical On Chart Yes Belongings At Bedside Cell phone, Land Reclamation Specialist, Glasses, Pajamas, Shoes, Socks Personal Home Medications Received Received from patient Belongings Sent Home Wallet NPO Status Maintained Allergy Band on and Verified Yes Patient ID Band on and Verified Yes Implants Verified Yes Pacemaker/AICD Verified Yes Anesthesia Consent Signed Yes Blood Consent Signed Yes Last Fluid Intake 02/16/2023 21:00 Last Food Intake 02/16/2023 21:00 Last Void 02/17/2023 10:56 02/17/2023 10:47 EST Height 160 cm Height in inches 63 inch(es) Admission Weight 78.4 kg Weight Lbs 172.5 lb [place] Body Weight 52.38 kg Temperature Temporal Artery 36.6 DegC Apical Heart Rate 73 bpm Respiratory Rate 13 br/min LOW Systolic Blood Pressure Non-Invasive 128 mmHg Diastolic Blood Pressure Non-Invasive 74 mmHg Primary Pain Location Leg Primary Pain Laterality Left Primary Pain Intensity 4 Primary Pain Quality Radiating, Sharp Pain Scale Type 0-10 Pain scale Heart Rhythm Regular Dorsalis Pedis Pulse, Left 2+ Normal Dorsalis Pedis Pulse, Right 2+ Normal Respirations Unlabored Breath Sounds Auscultated Anterior only All Lobes Breath Sounds Clear, Equal Oxygen Therapy Room air Oxygen Saturation 100 % Abdomen Description Non-distended, Soft Bowel Sounds All Quadrants Present Skin Temperature Warm Skin Description [place], Normal for ethnicity, Dry Skin Integrity Intact Skin Moisture General Dry Neurological Symptoms Patient denies Extremity Movement Equal Characteristics of Speech Clear Level of Consciousness Alert Strength All Extremities Moderate Tone All Extremities Normal Sensation All Extremities Numbness, Tingling Left Lower Extremity Sensation Intact Affect/Behavior Appropriate, Calm, Cooperative Orientation Oriented x 4 Rika Motor (2) Moves 4 extremities voluntarily or on command Rika Respirations (2) Spontaneous respiration without support, RR > 10 Rika Blood Pressure (2) BP 20% above or below preanesthetic level Rika Pulse (2) Pulse 20% above or below preanesthetic level Rika Oxygen Saturation (2) 94% or more Rika Level of Consciousness (2) Fully awake Rika III Score 12 Orientation Assessment Oriented x 4 Assistive Device None Activity Status ADL Awake, Resting Sequential Compression Device right knee high applied/on Antiembolism Stocking On/Re-applied right thigh high Standard Safety ID band on, Call device within reach, Bed in low position, Wheels locked, Upper/Half-Length side-rails up, Non-Slip footwear . Assessment and Plan [place] Society of Anesthesiologists (ASA) physical status classification: Class III. Anesthetic Preoperative Plan Premedication: intravenous. Anesthetic technique: MAC, Regional, Spinal. Induction: intravenously. Maintenance airway: Mask. Regional: Spinal, Adductor Canal Block. Postoperative pain management: Per surgeon. Risks discussed: nausea, vomiting, headache, sore throat, dental injury, hypotension, allergic reaction, serious complications. Informed consent: signed by patient. Digitally Signed by JOANNA FELDMAN on 02/17/2023 12:24 PM [facility] 01-29-2023 Note ORIGINAL EXAMINATION: CT OF THE LEFT KNEE WITHOUT CONTRAST 01/29/2023 2:56 pm TECHNIQUE: CT of the left knee was performed without the administration of intravenous contrast. Multiplanar reformatted images are provided for review. Automated exposure control, iterative reconstruction, and/or weight based adjustment of the mA/kV was utilized to reduce the radiation dose to as low as reasonably achievable. COMPARISON: None. HISTORY ORDERING SYSTEM PROVIDED HISTORY: Reason for Exam: VARUS DEFORMITY, NOT ELSEWHERE CLASSIFIED, LEFT KNEE. FINDINGS: No acute fracture or dislocation. Normal osseous mineralization. No visible aggressive osseous lesions. There is moderate to severe medial femorotibial compartment joint space narrowing with subchondral sclerosis and marginal osteophytes. Partial medial meniscal body extrusion. There is [id number] lateral femorotibial compartment joint space narrowing with marginal osteophytes and minimal vacuum joint phenomena. There is moderate patellofemoral compartment joint space narrowing with marginal osteophytes. No significant joint effusion. Small volume Solis's cyst with intracapsular bodies measuring up to 0.5 cm transverse dimension.. Tendons and ligaments are suboptimally evaluated on this examination. Insertional quadriceps enthesopathy. No significant muscle atrophy. Provided images of the hip and hemipelvis exhibit no acute osseous abnormalities or aggressive osseous lesions. Mild arthrosis of the hips and pubic symphysis. Suspected bone islands of the femoral head. The included intrapelvic contents exhibit no acute abnormalities. Provided images of the ankle exhibit no acute osseous abnormalities or aggressive osseous lesions. Probable bone island of the tibial plafond. Incidental os trigonum. IMPRESSION: 1. No acute osseous abnormality or aggressive osseous lesion. 2. Tricompartmental osteoarthrosis of the knee, most pronounced of the medial femorotibial compartment. Small volume Solis's cyst with intracapsular bodies. Interpreted by: Robert Schroeder DO Preliminary Report By: Robert Schroeder DO Electronically signed By Robert Schroeder DO Dictated Date: 01/29/2023 2:57:54 PM Prelim Date: 01/29/2023 3:01:14 PM Sign Date: 01/29/2023 3:01:14 PM Ordering Provider: SEMAJ PHILLIPS [facility] Evaluation + Plan note Future Appointments [facility] Hospital course Narrative No data available for this section [facility] Hospital Discharge instructions No data available for this section [facility] Progress note No data available for this section [facility] Summary Purpose Family History No Family History Records Found Advance Directives No Advanced Directives Records Found Additional Source Comments Patient Care team informatio n (unrecognized section and content) Care Team Personnel Name: STEFANI BALL MD Member Role: Primary Care Physician Address: Address: [address] [place] [address] Care Team Related Persons Name: DORA SALVADOR INFORMATION SOURCE (unrecogn ized section and content) FOR RECORDS PERTAINING TO PATIENTS WHO ARE OR HAVE BEEN ENROLLED IN A CHEMICAL DEPENDENCY/SUBSTANCEABUSE PROGRAM, SOME INFORMATION MAY BE OMITTED. This clinical summary was aggregated from multiple sources. Caution should be exercised in using it in the provision of clinical care. This summary normalizes information from multiple sources, and as a consequence, information in this document may materially change the coding, format and clinical context of patient data. In addition, data may be omitted in some cases. CLINICAL DECISIONS SHOULD BE BASED ON THE PRIMARY CLINICAL RECORDS. [facility]. provides no warranty or guarantee of the accuracy or completeness of information in this document.
== END | disposition home or self-care (01) ==
LOC: MTRAD 11:33
PROVIDERS: PCP Family Medicine; Referring Provider Family Medicine; Visit Provider Family Medicine
DX: J32.9 Chronic sinusitis, unspecified (principal)
CPT/HCPCS: 70220

== ENCOUNTER 2023-08-06 06:24 | Day surgery (SDC) | payer MEDICARE, SELFPAY ==
--- NOTE | 2023-08-06 | GASB_PTH ---
PATIENT: DERRICK SALVADOR LOC: EN U#:[id number] AGE/SX: 72/F ROOM: RE08/06/[address]: Dr. Abhi Roach MD : 1950 BED: DIS: 08/06/2023 SPEC #: [id number] RECD: 08/06/23 13:32 STATUS: [place] #: [id number] SANDRA: 08/06/23 00:[address]: Abhi Roach DEPT: SURGICAL PATHOLOGY RECD BY: Channing Yung ENTERED: 08/06/23 13:44 SP TYPE: Gastric Bx OTHR DR: Dr. Stefani Ball MD Tissues: A - Stomach, NOS B - Gastric mucous membrane C - Stomach, NOS D - Cardioesophageal junction E - Gastric fundus F - Gastric fundus G - Esophageal mucous membrane H - Stomach, NOS Procedures: Special Stain Group II Surgery Specimen Level IV Alcian Blue/PAS (control) HEADER OPERATION: EGD- ph probe, polypectomy and biopsies with hemostasis PRE-OP DIAGNOSIS: GERD TISSUE SUBMITTED: A- Lesser curvature polyp, B- Antral biopsy, C- Greater curvature polyp, D- Cardia polyp, E- Fundus polyp, F- Fundal polyp biopsy #2, G- Z line biopsy, H- Lesser curvature polyp MICROSCOPIC DIAGNOSIS A. Lesser curvature polyp, polypectomy: Fundic gland polyp. B. Antral biopsy: Mild gastritis. See microscopic description and comment. C. Greater curvature polyp, polypectomy: Fragments of fundic gland polyp. D. Cardia polyp, polypectomy: Fragments of fundic gland polyp. E. Fundus polyp, polypectomy: Fragments of fundic gland polyp. F. Fundus polyp #2, biopsy: Scant fragment of superficial benign gastric mucosa. G. Z line biopsy: Fragments of gastroesophageal mucosa with moderate chronic inflammation. Intestinal metaplasia (goblet cell metaplasia) not identified. See comment. H. Lesser curvature polyp, polypectomy: Fragments of fundic gland polyp. / 08/07/2023 COMMENT B. The results of immunohistochemistry for Helicobacter pylori will be reported separately ([id number]). G. Alcian blue/PAS stain with matched control is used in the evaluation of the specimen. MICROSCOPIC DESCRIPTION Slides are reviewed. B. The specimen shows fragments of gastric mucosa with chronic inflammatory cell infiltrates in the lamina propria consisting of lymphocytes and plasma cells, consistent with mild chronic gastritis. GROSS DESCRIPTION A. Received in fixative is one container labeled with the patient's name and designated Lesser curvature polyp. The specimen consists of a larson pink polyp measuring 0.5 x 0.5 x 0.2cm. The entire specimen is submitted in one cassette. B. Received in fixative is one container labeled with the patient's name and designated Antral biopsy. The specimen consists of multiple irregular fragments of light larson soft tissue that in aggregate measure 0.6 x 0.2 x 0.1 cm. The specimen is totally submitted in one cassette. C. Received in fixative is one container labeled with the patient's name and designated Greater curvature polyp. The specimen consists of two larson-pink polyps measuring 0.6 x 0.7 x 0.3cm and 0.5 x 0.4 x 0.3cm. The entire specimen is submitted in one cassette. D. Received in fixative is one container labeled with the patient's name and designated Cardia polyp. The specimen consists of multiple irregular fragments of light larson soft tissue that in aggregate measure 1.0 x 1.0 x 0.2 cm. The specimen is totally submitted in one cassette. E. Received in fixative is one container labeled with the patient's name and designated Fundus polyp. The specimen consists of two larson-pink polyps measuring 0.8 x 0.5 x 0.3cm and 0.3 x 0.3 x 0.1cm. The entire specimen is submitted in one cassette. F. Received in fixative is one container labeled with the patient's name and designated Fundal polyp biopsy #2. The specimen consists of multiple irregular fragments of light larson soft tissue that in aggregate measure 0.5 x 0.1 x 0.1 cm. The specimen is totally submitted in one cassette. G. Received in fixative is one container labeled with the patient's name and designated Z line biopsy. The specimen consists of one irregular fragment of light larson soft tissue that measures 0.5 x 0.3 x 0.1 cm. The specimen is totally submitted in one cassette. H. Received in fixative is one container labeled with the patient's name and designated Lesser curvature polyp. The specimen consists of multiple irregular fragments of light larson soft tissue that in aggregate measure 2.0 x 0.5 x 0.1 cm. The specimen is totally submitted in one cassette. Shavonne 08/06/23 TC:5 CPT:[id number]
[2023-08-06 06:44] VITALS: BP 155/69; PULSE 76; RESP 16; TEMP 36; O2SAT 100; BMI 30.1
[2023-08-06] MEDS: Lactated Ringers 1,000 ML 15 ML IV (06:47)
--- NOTE | 2023-08-06 07:22 | HP.PCM_ITS ---
History and Physical Date of Admission: 08/06/23 OFFICE VISIT Date of Service: 07/09/23 MR#: [id number] Acct: [id number] Name: CASEDERRICK Rep #: [id number] : 1950 Provider: Dr. Abhi Roach MD Age/Sex: 72/F Location: [facility] Status: Signed Intake Vital Signs 06/21/2409:17 07/08/2412:49 Height 5 ft 3 in Weight: 170 lb 3 oz BMI 30.1 BP 124/70 H 125/73 H Blood Pressure Location Lt brachial Rt brachial Position Sitting Sitting Respiration 17 17 Pulse 105 H 91 Pulse Source Monitor Monitor Temp 98.2 F Temp Source Temporal Pulse Oximetry (%) 99 Oxygen Delivery Method room air Intake Visit Reasons: Discuss EGD Chief Complaint: EGD consult Is patient in pain?: No Allergies atorvastatin [From Lipitor] Allergy (Unknown, Verified 07/09/23 13:50) unknownlisinopril Allergy (Unknown, Verified 07/09/23 13:50) unknownrosuvastatin [From Crestor] Allergy (Unknown, Verified 07/09/23 13:50) unknownsimvastatin [From Zocor] Allergy (Unknown, Verified 07/09/23 13:50) [id number]-[id number] Reductase Inhibitor Allergy (Unknown, Verified 07/09/23 13:50) IntolerantSulfa (Sulfonamide Antibiotics) Allergy (Unknown, Verified 07/09/23 13:50) Headache, nauseapropoxyphene napsylate [From Darvocet-N] Allergy (Verified 07/09/23 13:50) Unknown Medications fluticasone propionate 50 mcg/actuation nasal spray,suspension (Flonase Allergy Relief) 50 mcg intranasal DAILY PRN PRN ALLERGIES 01/10/22 [History Confirmed 07/09/23] losartan 50 mg tablet 50 mg PO DAILY BP 01/10/22 [History Confirmed 07/09/23] metoprolol succinate 100 mg tablet,extended release 24 hr 100 mg PO DAILY BP 01/10/22 [History Confirmed 07/09/23] pregabalin 75 mg capsule 75 mg PO BID PAIN 04/22/22 [History Confirmed 07/09/23] multivitamin 1 tab PO DAILY 07/24/22 [History Confirmed 07/09/23] aspirin 81 mg tablet,delayed release (Adult Low Dose Aspirin) 81 mg PO DAILY 09/03/22 [History Confirmed 07/09/23] duloxetine 60 mg capsule,delayed release 60 mg PO DAILY 09/03/22 [History Confirmed 07/09/23] glycopyrrolate 1 mg tablet 1 mg PO TID 09/03/22 [History Confirmed 07/09/23] rosuvastatin 20 mg tablet 20 mg PO DAILY #90 tabs 11/07/22 [Rx Confirmed 07/09/23] clopidogrel 75 mg tablet 75 mg PO DAILY #90 tabs 03/12/23 [Rx Confirmed 07/09/23] folic acid 1 mg tablet 1 mg PO DAILY #90 tabs 03/12/23 [Rx Confirmed 07/09/23] pantoprazole 40 mg tablet,delayed release 40 mg PO DAILY #90 tabs 03/20/23 [Rx Confirmed 07/09/23] PFSH Medical History Abnormal mammogram of right breast Alteration in vision Blood thinned due to long-term anticoagulant use CVA (cerebral vascular accident) Fatigue GERD (gastroesophageal reflux disease) Hypercholesterolemia Surgical History H/O arthroscopic knee surgery H/O: hysterectomy History of back surgery History of colonoscopy (~2016) History of left heart catheterization (06/13/14) History of right breast biopsy History of sinus surgery History of squamous cell carcinoma excision Hx of cataract surgery Family History Mother Hypertension High cholesterolGrandmother CVA (cerebral vascular accident)Other Alcoholism Cancer Social History household members: spouse Smoking Status: Never smoker second hand exposure: No alcohol intake: never substance use type: does not use caffeine: Yes Type: coffee Number of servings: 1 what type of physical activity do you participate in: weight training and other frequency: 5-6 times per week meet/gnosticist: Restorationism seatbelt use: always HPI HPI HPI: Patient is a 72-year-old female is known to me for a history of thyroid nodules but presents today for consideration of EGD for history of reflux. Her last visit was 01/29/2023. She presents today with her . They relate that s he underwent a knee replacement this winter and is getting around better but otherwise denies any new health changes. Mrs. Quarles reports that she has reflux every day and night. It has become so frequent that she states with just about anything she can expect it. She no specific triggers to be coffee marinara sauce, hot peppers, and hot pickles. She states that she still eats these things because she enjoys them but does try to minimize their intake prior to bedtime. She estimates that she finishes any eating by 8:30 PM and then retires to bed between 11 PM and midnight. She confirms that she is taking the prescribed pantoprazole each morning and also is taking Tums and famotidine as needed. She shares that this is something that she takes every day. When asked about how bothersome the symptoms are to her, Mrs. Quarles states that she does not foresee needing surgery. She simply presents because she has been told that this would be a good thing to look into given the frequency of her symptoms. Lastly, she suggest that her father was diagnosed with a hiatal hernia and underwent surgery for this diagnosis. Below is recapitulated from patient's prior visit for ease of review: Presents for repeat FNA with Afirma testing given findings of atypia in her last FNA. She states that overall she feels very well, however, she reports that she has been busy with preoperative testing as she is due for an orthopedic procedure in the near future. She also reports recent travel to [place] and tween these 2 commitments was the reason she had to cancel her recently scheduled EGD. She does report that she has had some improvements in her reflux since transitioning to a different PPI. She lastly confirms that she has held her Plavix now for 10 days in anticipation of today's procedure. Patient is a 72-year-old female who presents for thyroid nodule. They are referred for surgical consultation from Dr. Ball. This was discovered incidentally during work-up for a number of mini strokes by Dr. Perkins, neurologist. They do experience difficulty with swallowing and Mrs. Quarles states that she seems to choke easy given examples of bread and coffee as being problematic. They do not complain of a new cough. They do appreciate new voice changes which they describe as hoarseness but this observation has not been made by patient's . They do not have a history of snoring/sleep apnea. Additionally, their weight has been stable and they do not have a history of weight gain/loss. There is no history of recent fatigue. They do have a history of heat intolerance and frequent sweating. Other symptoms include: Constipation (but patient states this has been present for her lifetime) and reflux which she states has been recently worse despite regular use of omeprazole. They do not have a family history of thyroid disorders or endocrinopathies. There [is/is no] history of prior radiation exposure. Previous work-up has included thyroid ultrasound?most recently from 12/01/2022. This identified a right thyroid lobe measuring 3.8 x 1.6 x 1.4 cm. The superior pole of this thyroid lobe there is a 1.7 x 1.2 x 1.2 cm mixed solid cystic hypoechoic nodule with some punctate echogenic foci rated a TI-RADS 4 as well as a smaller 1.0 x 0.9 x 0.9 cm solid hypoechoic nodule in the mid thyroid that was also rated TI-RADS 4. The left thyroid lobe measured 3.9 x 1.4 x 1.1 cm to subcentimeter nodules were discussed in this lobe rated TI-RADS 1 and 3, respectively. Radiology recommended biopsy of patient's 1.7 cm nodule if not done previously. An FNA has not been performed. Patient is confirmed to have held her Plavix (prescribed for her history of CVA) 5 days ago in anticipation of probable biopsy. Other tests include: TSH 1.9 and free T40.93 (07/14/2022). ROS General General: No weight change, appetite, fatigue, colon cancer, breast cancer or weakness HEENT HEENT: No difficulty swallowing, eye injury, eye surgery, swollen glands or hoarseness Endo Endocrine: No thyroid disease, diabetes mellitus, thyroid cancer, Hair loss, heat intolerance or cold intolerance Skin Skin: No rash or changing moles Breast Breast: No left breast lump, right breast lump, nipple discharge, breast pain, abnormal mammogram, abnormal US or breast enlargement Musc Musculoskeletal: Yes arthritis; No back problems, rheumatoid arthritis, gout or joint pain Cardio Cardiovascular: No murmur, pacemaker, heart disease, atrial fibrillation, high blood pressure, heart attack, heart stent, palpitations, shortness of breat with exertion or chest pain Psych Psychiatric: No depression, anxiety or hearing voices Resp Respiratory: No shortness of breath, No sleep apnea, No cough, No COPD, No asthma, No emphysema and No wheezing Gastro Gastrointestinal: No abdominal pain, No nausea or vomiting, No diarrhea, No constipation, No blood in stool, Yes acid reflux, No hemorrhoids, No ulcers, No gallbladder problem and No black,tarry stools Guillermo Hematologic: No blood thinners, No blood disorders, No bleeding, No anemia and No blood clots Neuro Neurologic: No system reviewed and no additional complaints, except as documented, No as per HPI, No abnormal gait, No abnormal hearing, No abnormal movements, No abnormal speech, No behavioral changes, No burning sensations, No confusion, No convulsions, No disequilibrium, No dizziness, No localized weakness, No frequent falls, No headache(s), No lack of coordination, No loss of vision, No memory loss, Yes numbness, No other visual disturbances, No radicular pain, No restless legs, No sensory deficit, No syncope, Yes tingling, No tremor(s), No weakness and No other Exam Const General: cooperative, healthy appearing and comfortable GI Inspection: normal to inspection Assessment and Plan Assessment and Plan (1) GERD (gastroesophageal reflux disease): Status: Acute Comment: Patient with refractory reflux disease despite now transitioning to pantoprazole. She describes symptoms occurring with a daily frequency. She is additionally using Tums and famotidine. She has identified food triggers, but on apologetic lately states that she still likes these foods and simply tries to minimize their effect by avoiding them closer to bedtime. We had a rather lengthy conversation around reflux disease and pathologic states that lead to them. Specifically, addressed the scenario of a hiatal hernia and used a picture diagrams to facilitate this conversation. Regarding procedure plans, I shared with her the opportunity could be taken to perform a pH probe placement, however, she seems very reluctant to consider any additional surgery and simply is most interested in being screened for Basilio's esophagus. Therefore we will plan for diagnostic EGD alone with biopsy. Patient is on Plavix and will need to have this held for 7 days preprocedure to minimize her bleeding risk with these biopsies. Plan: Diagnostic EGD with 7-day Plavix hold prior to procedure in anticipation of biopsies I have examined the patient the following changes are noted: Mrs. Quarles contacted our office to inform us that she would like to pursue pH probe monitoring so this amendment was made. Additionally, she confirms that she has had significantly worsening reflux symptoms since discontinuing her PPI medication. Lastly, she confirms that she has remained off her Plavix for over 7 days in anticipation of biopsies during today's procedure. She denies any further questions. Her abdominal exam is benign. Will now proceed to endoscopy suite for planned EGD with pH probe placement as discussed in greater detail above
--- NOTE | 2023-08-06 07:30 | IMM_PTH ---
PATIENT: DERRICK SALVADOR LOC: EN U#:[id number] AGE/SX: 72/F ROOM: RE08/06/[address]: Dr. Abhi Roach MD : 1950 BED: DIS: 08/06/2023 SPEC #: [id number] RECD: 08/06/23 13:31 STATUS: AL REYandy #: [id number] SANDRA: 08/06/23 07:[address]: Abhi Roach DEPT: IMMUNOHISTOCHEMISTRY RECD BY: Ubaldo Figueroa ENTERED: 08/06/23 13:32 SP TYPE: IMMUNO OTHR DR: Dr. Stefani Ball MD Tissues: B - Stomach, NOS Procedures: H Pylori (initial) PHYSICIAN & INSTITUTION [facility] [id number] SPECIMEN INFORMATION: Tissue Source: B- Antral biopsy Clinical Info: GERD Specimen Number: [id number] CPT code: 61198 METHODOLOGY: Deparaffinized sections of prefer/formalin-fixed tissue or PAP/DQ stained slides are incubated with monoclonal/polyclonal antibodies/oligonucleotide probes. Localization is made via biotin free immunoperoxidase method. Appropriate controls are performed and reacted as expected. Results on target cell population are indicated in the following table: RESULTS: ANTIBODY / CLONE RESULT Block B H Pylori (polyclonal) negative These tests were developed and their performance characteristics determined by [facility]. They may not have been cleared or approved by the U.S. Food and Drug Administration. The FDA has determined that such clearance or approval is not necessary. The above immunohistochemical/dualISH markers are ordered and reviewed by the Pathologist. INTERPRETATION: B. Antrum, biopsy: Negative for Helicobacter pylori organisms. SAIGE/ 08/07/2023
[2023-08-06 08:30] VITALS: BP 130/49; BP 155/69; PULSE 74; RESP 16; TEMP 36.1; O2SAT 99
[2023-08-06 08:35] VITALS: BP 130/54; BP 155/69; PULSE 74; RESP 16; O2SAT 97
--- NOTE | 2023-08-06 08:37 | OP.CCLET_ITS ---
08/06/2023 Stefani Ball [address] [place] [address] Re : Upper GI endoscopy procedure for Anabella Case Dear Dr. Ball This procedure was performed on July. My impressions and recommendations are as follows: Impressions : - No gross lesions in the duodenal bulb, in the first portion of the duodenum and in the second portion of the duodenum. No specimens collected. - Erythematous mucosa in the antrum. Biopsied. - Multiple gastric polyps. Resected and retrieved. - Small hiatal hernia. No specimens collected. - Z-line regular, 36 cm from the incisors. Biopsied. - A single gastric polyp. Resected and retrieved. - Normal esophagus. - The SALEEM pH capsule was deployed. Recommendations : - Discharge patient to home (via wheelchair). - Resume previous diet today. - Continue present medications. - Await pathology results. - Telephone my office for pathology results in 1 week. My findings are described in the full procedure note, which is enclosed. If I can be of further assistance, please feel free to contact me at Doctor phone number(s): , Work: . Sincerely, Abhi Roach MD 08/06/2023 8:36:50 AM This report has been signed electronically.
--- NOTE | 2023-08-06 08:37 | OP.EGD_ITS ---
Patient Name: Anabella Case Procedure Date: 08/06/2023 7:01 AM Date of : 1950 Age: 72 Procedure: Upper GI endoscopy Indications: Esophageal reflux Providers: Abhi Roach MD Referring MD: Stefani Ball Medicines: See the Anesthesia note for documentation of the administered medications Patient Profile: Refer to note in patient chart for documentation of history and physical. Complications: No immediate complications. Estimated blood loss: Minimal. Procedure: Pre-Anesthesia Assessment: - The heart rate, respiratory rate, oxygen saturations, blood pressure, adequacy of pulmonary ventilation, and response to care were monitored throughout the procedure. After obtaining informed consent, the endoscope was passed under direct vision. Throughout the procedure, the patient's blood pressure, pulse, and oxygen saturations were monitored continuously. The Endoscope was introduced through the mouth, and advanced to the second part of duodenum. The upper GI endoscopy was technically difficult and complex due to excessive bleeding. Successful completion of the procedure was aided by performing the maneuvers documented (below) in this report. The patient tolerated the procedure well. Scope In: 7:36:08 AM Scope Out: 8:23:49 AM Total Procedure Duration Time 0 hours 47 minutes 41 seconds Findings: No gross lesions were noted in the duodenal bulb, in the first portion of the duodenum and in the second portion of the duodenum. No biopsies or other specimens were collected for this exam. Localized mildly erythematous mucosa without bleeding was found in the gastric antrum. Biopsies were taken with a cold forceps for Helicobacter pylori testing. Estimated blood loss was minimal. Multiple 3 to 15 mm pedunculated and sessile polyps with no bleeding and no stigmata of recent bleeding were found in the cardia, in the gastric fundus, in the gastric body, on the greater curvature of the stomach and on the lesser curvature of the stomach. Polypectomy was attempted, initially using a hot snare. Polyp resection was incomplete with this device. This intervention then required a different device and polypectomy technique. The polyp was removed with a cold biopsy forceps. Resection and retrieval were complete. Estimated blood loss was minimal. A small hiatal hernia was present. No biopsies or other specimens were collected for this exam. The Z-line was regular and was found 36 cm from the incisors. Biopsies were taken with a cold forceps for histology. Estimated blood loss: 2 mL requiring treatment with coagulation. A single 5 mm sessile polyp with no bleeding and no stigmata of recent bleeding was found on the greater curvature of the stomach. The polyp was removed with a cold snare. Resection and retrieval were complete. Estimated blood loss: 2 mL requiring treatment with placement of hemostatic clip(s). The esophagus was normal. The SALEEM capsule with delivery system was introduced through the mouth and advanced into the esophagus, such that the SALEEM pH capsule was positioned 30 cm from the incisors, which was 6 cm proximal to the GE junction. The SALEEM pH capsule was then deployed and attached to the esophageal mucosa. The delivery system was then withdrawn. Endoscopy was utilized for probe placement and diagnostic evaluation. Impression: - No gross lesions in the duodenal bulb, in the first portion of the duodenum and in the second portion of the duodenum. No specimens collected. - Erythematous mucosa in the antrum. Biopsied. - Multiple gastric polyps. Resected and retrieved. - Small hiatal hernia. No specimens collected. - Z-line regular, 36 cm from the incisors. Biopsied. - A single gastric polyp. Resected and retrieved. - Normal esophagus. - The SALEEM pH capsule was deployed. Recommendation: - Discharge patient to home (via wheelchair). - Resume previous diet today. - Continue present medications. - Await pathology results. - Telephone my office for pathology results in 1 week. Procedure Code(s): --- Professional --- 77482, Esophagogastroduodenoscopy, flexible, transoral; with removal of tumor(s), polyp(s), or other lesion(s) by snare technique 87583, 59, Esophagogastroduodenoscopy, flexible, transoral; with biopsy, single or multiple Diagnosis Code(s): --- Professional --- K31.89, Other diseases of stomach and duodenum K31.7, Polyp of stomach and duodenum K44.9, Diaphragmatic hernia without obstruction or gangrene K21.9, Gastro-esophageal reflux disease without esophagitis CPT copyright 2021 [employer]. All rights reserved. The codes documented in this report are preliminary and upon stevedoring supervisor review may be revised to meet current compliance requirements. Abhi Roach MD 08/06/2023 8:36:50 AM This report has been signed electronically. Number of Addenda: 0 Note Initiated On: 08/06/2023 7:01 AM
[2023-08-06 08:40] VITALS: BP 155/65; BP 155/69; PULSE 74; RESP 16; TEMP 36.1; O2SAT 97
[2023-08-06 09:02] VITALS: BP 155/69
== END 2023-08-06 09:22 | disposition home or self-care (01) ==
LOC: EN 06:25 → AC 06:25
PROVIDERS: PCP Family Medicine; Referring Provider Family Medicine; Visit Provider Surgery
PROC: 0DJ08ZZ Inspection of Upper Intestinal Tract, Via Natural or Artificial Opening Endoscopic (ICD-10-PCS; CPT 43235; principal; 2023-08-06 07:25)
DX: K29.70 Gastritis, unspecified, without bleeding (principal); K21.9 Gastro-esophageal reflux disease without esophagitis; K44.9 Diaphragmatic hernia without obstruction or gangrene; K31.7 Polyp of stomach and duodenum; E04.1 Nontoxic single thyroid nodule; E78.00 Pure hypercholesterolemia, unspecified; R13.10 Dysphagia, unspecified; K31.89 Other diseases of stomach and duodenum; Z86.73 Personal history of transient ischemic attack (TIA), and cerebral infarction without residual deficits
CPT/HCPCS: 43239; 43251; 88305; 88313; 88342; J7120; J2405

== ENCOUNTER → 2023-08-17 | Outpatient (CLI) | payer MEDICARE, SELFPAY ==
[2023-08-17 15:33] LABS: Protein, Urine (Random) 20.2 mg/dL (<11.9); Protein:Creat Ratio 105 mg/g CRE (0-200)
[2023-08-17 16:34] LABS: AST(SGOT) 19 U/L (15-37); Alanine Aminotransfer ALT/SGPT 16 U/L (13-56); Anion Gap 5 (5-15); BUN 11 mg/dL (7-18); BUN/Creat Ratio 12.5 RATIO (10-20); Calcium,Total 9.6 mg/dL (8.5-10.1); Chloride 109 mmol/L (98-107); Cholesterol 162 mg/dL (200); Creatinine, Serum 0.88 mg/dL (0.55-1.02); EST Glomerular Filtration Rate 67 mL/min (>60); Est Glom Filt Rate - Afr Amer 81 mL/min (>60); Glucose 90 mg/dL (74-106); High Density Lipoprotein 46 mg/dL; Potassium 4.3 mmol/L (3.5-5.1); Sodium Level 139 mmol/L (136-145); Triglycerides 177 mg/dL; Very Low Density Lipoprotein 35 mg/dL (5-40)
== END | disposition home or self-care (01) ==
LOC: MFPLAB 12:05
PROVIDERS: PCP Family Medicine; Visit Provider Family Medicine
DX: E78.00 Pure hypercholesterolemia, unspecified (principal); I10 Essential (primary) hypertension
CPT/HCPCS: 36415; 80048; 80061; 82570; 84156; 84450; 84460

== ENCOUNTER → 2023-08-24 | Outpatient (CLI) | payer MEDICARE, SELFPAY ==
--- NOTE | 2023-08-24 09:50 | BI_ITS ---
MAMMOGRAPHY - BILATERAL SCREENING REASON FOR EXAM: Female, 72 years old. Routine annual screening examination. PERTINENT HISTORY: Non-contributory. TECHNIQUE: Digital bilateral breast apurva (3D mammographic acquisition) in the CC and MLO projections. 2-D mediolateral oblique (MLO) and craniocaudad (CC) views of both breasts were obtained. CAD: Full Field Digital Mammography with Computer Added Detection was performed. COMPARISON: Comparison is made with prior study Sudhir2022 and December 10, 2021. FINDINGS: Breast Composition: The breasts are extremely dense, which lowers the sensitivity of mammography. There are no dominant masses or suspicious calcifications. A loop recorder device is seen in the deep central medial aspect of the left breast. Stable benign-appearing bilateral axillary lymph nodes. A tissue clip marker is seen in the anterior upper lateral aspect of the right breast. No other significant abnormalities are identified. There has been no significant change since the prior study. BI/SCRN MAMM (CAD)W/APURVA BILAT IMPRESSION: Stable bilateral screening mammogram. Yearly follow-up mammogram recommended. (A) ASSESSMENT CATEGORY: BIRADS Category 2: Benign. A letter regarding these results will be sent to the patient by the facility within 30 days. Approximately 10% of breast cancers are not detected by mammography. A normal mammogram should not delay biopsy of a clinically suspicious abnormality. [id number] Electronically Signed: Nishant Lim MD at 9:34 EDT ,
== END | disposition home or self-care (01) ==
LOC: OPBI 09:50
PROVIDERS: PCP Family Medicine; Referring Provider Family Medicine; Visit Provider Family Medicine
DX: Z12.31 Encounter for screening mammogram for malignant neoplasm of breast (principal)
CPT/HCPCS: 77063; 77067

== ENCOUNTER → 2024-03-01 | Outpatient (CLI) | payer MEDICARE, SELFPAY ==
[2024-03-01 09:46] LABS: Hematocrit 36.7 % (37-47); Hemoglobin 11.9 g/dL (12.0-15.0); Mean Corp Hgb Conc 32.4 g/dL (32-36); Mean Corpuscular Volume 89.3 fL (81-99); Mean Platelet Vol. 10.4 fl (6.2-12.0); Platelet Count 297 K/mm3 (150-450); RBC Distribution Width CV 13.7 % (11.6-14.6); RBC Distribution Width SD 44.5 fl (35.1-43.9); Red Blood Count 4.11 M/mm3 (4.2-5.4); White Blood Count 7.9 K/mm3 (4.4-11.0)
[2024-03-01 11:08] LABS: AST(SGOT) 15 U/L (15-37); Alanine Aminotransfer ALT/SGPT 21 U/L (13-56); Albumin, Serum 3.5 g/dL (3.2-5.0); Alkaline Phosphatase 68 U/L (45-117); Anion Gap 5 (5-15); BUN 15 mg/dL (7-18); BUN/Creat Ratio 14.6 RATIO (10-20); Calcium,Total 9.4 mg/dL (8.5-10.1); Chloride 107 mmol/L (98-107); Creatinine, Serum 1.03 mg/dL (0.55-1.02); EST Glomerular Filtration Rate 56 mL/min (>60); Est Glom Filt Rate - Afr Amer 68 mL/min (>60); Globulin 3.6 g/dL (2.2-4.2); Glucose 103 mg/dL (74-106); Protein, Total 7.1 g/dL (6.4-8.2); Sodium Level 139 mmol/L (136-145)
[2024-03-01 11:24] LABS: Hemoglobin A1c 5.7 % (3.8-5.6)
== END | disposition home or self-care (01) ==
LOC: MTLAB 08:14
PROVIDERS: PCP Family Medicine; Referring Provider Psychiatry & Neurology Neurology; Visit Provider Psychiatry & Neurology Neurology
DX: G62.9 Polyneuropathy, unspecified (principal); E04.2 Nontoxic multinodular goiter; R73.9 Hyperglycemia, unspecified
CPT/HCPCS: 36415; 80053; 82746; 83036; 84443; 85027

== ENCOUNTER 2024-05-18 11:32 | Day surgery (SDC) | payer MEDICARE, SELFPAY ==
--- NOTE | 2024-05-16 13:00 | PAT.ANE_ITS ---
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 When Was Last Pacemaker Check QUESTION #4 FULL TEXT: You/Your Family Experience fever (hyperthermia) with Anesthesia Last Oral Intake Last Oral intake: Last Oral Intake NPO since Meds taken in AM with sips of water? Meds patient instructed to take am of surgery PONV PONV - shift lab technician: PONV - shift lab technician Female Yes 05/16/24 12:22 HX of Motion Sickness Yes 05/16/24 12:22 HX of N/V After Surgery Yes 05/16/24 12:22 Non-Smoker Yes 05/16/24 12:22 Duration of Surgery greater No 05/16/24 12:22 than 60 minutes Number of Risk Factors 4 05/16/24 12:22 PONV Score Severe Risk 05/16/24 12:22 Height & Weight Height & Weight: Anesthesia: Height & Weight Height 5 ft 3 in 05/02/24 08:25 Respiratory Assessment Respiratory Assessment - shift lab technician: Respiratory Tract Infection Hx - shift lab technician Hx Respiratory Tract Infection No 05/16/24 12:22 STOP Sleep Apnea STOP Sleep Apnea - shift lab technician: STOP Sleep Apnea - shift lab technician Hx Hypertension Yes: CONTROLLED WITH MEDS 05/16/24 12:22 Hx Sleep Apnea No 05/16/24 12:22 CPAP BIPAP Do you snore loudly (louder No 05/16/24 12:22 than talking or can be heard Do you often feel tired/ No 05/16/24 12:22 fatigued/ sleepy during daytime? Has anyone observed you stop No 05/16/24 12:22 breathing during sleep? STOP Results Negative 05/16/24 12:22 QUESTION #5 FULL TEXT : Do you snore loudly (louder than talking or can be heard through closed doors)? 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 Specify any problems Hx of Preganancy in last 3 No 05/16/24 12:22 Months Nurse Filling Out Transfusion DSCHRIBER 05/16/24 12:22 & Questions: Date: 05/16/24 05/16/24 12:22 Time: 12:24 05/16/24 12:22 Patient unable to answer at this time (ie. confused, unrespo /Reproduction History /Reproductive History - shift lab technician: /Reproductive Hx- shift lab technician Hx Now No 05/16/24 12:22 Gestational Age (in weeks): EDC: Hx Hx Para Hx Section SAB No 05/16/24 12:22 PFSH Medical History (Updated 05/16/24 @ 12:34 by Faina Holguin) Migraine headache Hypertension Epigastric pain Wears glasses Cancer Arthritis High cholesterol Gastric reflux Non-smoker Implantable loop recorder present History of echocardiogram Cardiology follow-up encounter Fatigue Abnormal mammogram of right breast Blood thinned due to long-term anticoagulant use GERD (gastroesophageal reflux disease) CVA (cerebral vascular accident) Alteration in vision Hypercholesterolemia Home Medications ?Medication ?Instructions ?Recorded ?Last Taken ?Type fluticasone propionate 50 50 mcg intranasal DAILY PRN PRN 01/10/22 01/10/22 History mcg/actuation nasal ALLERGIES spray,suspension (Flonase Allergy Relief) losartan 50 mg tablet 50 mg PO DAILY BP 01/10/22 0 08/05/23 History metoprolol succinate 100 mg 100 mg PO DAILY BP 2 08/06/23 History tablet,extended release 24 hr multivitamin 1 tab PO DAILY 07/24/22 Unkn own History aspirin 81 mg tablet,delayed 81 mg PO DAILY 09/03/22 0 05/13/24 History release (Adult Low Dose Aspirin) duloxetine 60 mg capsule,delayed 60 mg PO DAILY Unknown History release glycopyrrolate 1 mg tablet 1 mg PO TID 09/03/22 History clopidogrel 75 mg tablet 75 mg PO DAILY #90 tabs 02/1105/13/24 Rx folic acid 1 mg tablet 1 mg PO DAILY #90 tabs 03/01 Unknown Rx pregabalin 50 mg capsule 50 mg PO DAILY #90 caps 02/11 01/04 Unknown Rx topiramate 25 mg tablet 25 mg PO BID #180 tabs 03/01 Unknown Rx rosuvastatin 20 mg tablet 20 mg PO QHS 05/16/24 Unknow n History Allergy/AdvReac Type Severity Reaction Status Date / Time atorvastatin (From Lipitor) Allergy Unknown unknown Verified 05/16/24 12:19 lisinopril Allergy Unknown unknown Verified 05/16/24 12:19 simvastatin (From Zocor) Allergy Unknown unknown Verified 05/16/24 12:19 Sulfa (Sulfonamide Allergy Unknown Headache, Verified 05/16/24 12:19 Antibiotics) nausea propoxyphene napsylate (From Allergy Unknown Verified 05/16/24 12:19 Darvocet-N) Family History Mother Hypertension High cholesterol Grandmother CVA (cerebral vascular accident) Other Alcoholism Cancer Surgical History (Updated 05/16/24 @ 12:34 by Faina Holguin) History of esophagogastroduodenoscopy (EGD) History of cardiac catheterization History of knee replacement procedure of left knee History of left heart catheterization (06/13/14) History of sinus surgery History of squamous cell carcinoma excision History of colonoscopy (~2017) History of right breast biopsy History of back surgery Hx of cataract surgery H/O arthroscopic knee surgery H/O: hysterectomy Social History household members: spouse Smoking Status: Never smoker second hand exposure: No alcohol intake: never substance use type: does not use caffeine: Yes Type: coffee Number of servings: 1 what type of physical activity do you participate in: weight training and other frequency: 5-6 times per week meet/moravian: Yazdanism seatbelt use: always Audit: Pertinent Findings Pertinent Findings EKG Perinent findings: 09/03/2022 sinus rhythm nonspecific T wave abnormality Echo (EF%) pertinent findings: 01/10/2022 EF 70% probable patent foramen ovale Heart catheterization pertinent findings: 2017 normal per cardiology note Consult pertinent findings: Cardiology 09/03/2022 CVA acute echo was checked with probable patent foramen ovale Additional pertinent findings: 09/04/2022 carotid duplex mild less than 50% stenosis right and left patent vertebrals bilaterally Recommendation Anesthesia Recommendation Anesthesia recommendation: OPTIMIZED for anesthesia
--- NOTE | 2024-05-18 10:03 | PRE.ANES_ITS ---
ASA Classification* ASA Classification ASA Classification: 3 Assessment & Plan Anesthesia* Anesthesia Assessment Anesthesia Assessment: Discussed sedation and/or anesthesia options, risks, benefits, and alternatives with patient/parents/legal guardian/POA. Questions invited. The patient/parents/legal guardian/POA seems to understand and agrees to proceed with anesthesia plan. Reviewed the physical assessment, medical history, allergy history and patient home medications list prior to surgery/procedure/anesthetic and documented any changes. Performed airway and anesthesia risk assessments. Anesthesia Type Anesthesia Type: MAC Anesthesia Focused Assessment* Airway Assessment Mouth opens: >3 cm Mallampati Score: II Focused Labs Anesthesia Preop lab: CBC WBC 7.9 K/mm3 (4.4-11.0) 03/01/24 08:17 03/01/24 RBC 4.11 M/mm3 (4.2-5.4) L 03/01/24 08:17 03/01/24 Hgb 11.9 g/dL (12.0-15.0) L 03/01/24 08:17 4 Hct 36.7 % (37-47) L 03/01/24 08:17 03/01/24 Plt Count 297 K/mm3 (150-450) 03/01/24 08:17 03/01/24 CHEMISTRY Potassium 4.0 mmol/L (3.5-5.1) 03/01/24 08:17 03/01/24 Sodium 139 mmol/L (136-145) 03/01/24 08:17 03/01/24 BUN 15 mg/dL (7-18) 03/01/24 08:17 03/01/24 Creatinine 1.03 mg/dL (0.55-1.02) H 03/01/24 08:17 Glucose 103 mg/dL (74-106) 03/01/24 08:17 03/01/24 TSH 2.820 uIU/mL (0.358-3.740) 03/01/24 08:17 02/11 01/04 COAG PT 13.1 SECONDS (11.7-14.9) 01/10/22 17:00 Pre-Assessment Diagnosis/Proposed Procedure Planned Operative Procedure(s): EGD/CSCOPE Anesthesia History 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 When Was Last Pacemaker Check QUESTION #4 FULL TEXT: You/Your Family Experience fever (hyperthermia) with Anesthesia Last Oral Intake Last Oral intake: Last Oral Intake NPO since Meds taken in AM with sips of water? Meds patient instructed to take am of surgery PONV PONV - pharmacy picking technician: PONV - pharmacy picking technician Female Yes 05/16/24 12:22 HX of Motion Sickness Yes 05/16/24 12:22 HX of N/V After Surgery Yes 05/16/24 12:22 Non-Smoker Yes 05/16/24 12:22 Duration of Surgery greater No 05/16/24 12:22 than 60 minutes Number of Risk Factors 4 05/16/24 12:22 PONV Score Severe Risk 05/16/24 12:22 Height & Weight Height & Weight: Anesthesia: Height & Weight Height 5 ft 3 in 05/02/24 08:25 Respiratory Assessment Respiratory Assessment - pharmacy picking technician: Respiratory Tract Infection Hx - pharmacy picking technician Hx Respiratory Tract Infection No 05/16/24 12:22 STOP Sleep Apnea STOP Sleep Apnea - pharmacy picking technician: STOP Sleep Apnea - pharmacy picking technician Hx Hypertension Yes: CONTROLLED WITH MEDS 05/16/24 12:22 Hx Sleep Apnea No 05/16/24 12:22 CPAP BIPAP Do you snore loudly (louder No 05/16/24 12:22 than talking or can be heard Do you often feel tired/ No 05/16/24 12:22 fatigued/ sleepy during daytime? Has anyone observed you stop No 05/16/24 12:22 breathing during sleep? STOP Results Negative 05/16/24 12:22 QUESTION #5 FULL TEXT : Do you snore loudly (louder than talking or can be heard through closed doors)? 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 Specify any problems Hx of Preganancy in last 3 No 05/16/24 12:22 Months Nurse Filling Out Transfusion DSCHRIBER 05/16/24 12:22 & Questions: Date: 05/16/24 05/16/24 12:22 Time: 12:24 05/16/24 12:22 Patient unable to answer at this time (ie. confused, unrespo /Reproduction History /Reproductive History - pharmacy picking technician: /Reproductive Hx- pharmacy picking technician Hx Now No 05/16/24 12:22 Gestational Age (in weeks): EDC: Hx Hx Para Hx Section SAB No 05/16/24 12:22 PFSH Medical History Migraine headache Hypertension Epigastric pain Wears glasses Cancer Arthritis High cholesterol Gastric reflux Non-smoker Implantable loop recorder present History of echocardiogram Cardiology follow-up encounter Fatigue Abnormal mammogram of right breast Blood thinned due to long-term anticoagulant use GERD (gastroesophageal reflux disease) CVA (cerebral vascular accident) Alteration in vision Hypercholesterolemia Home Medications ?Medication ?Instructions ?Recorded ?Last Taken ?Type fluticasone propionate 50 50 mcg intranasal DAILY PRN PRN 01/10/22 01/10/22 History mcg/actuation nasal ALLERGIES spray,suspension (Flonase Allergy Relief) losartan 50 mg tablet 50 mg PO DAILY BP 01/10/22 0 08/05/23 History metoprolol succinate 100 mg 100 mg PO DAILY BP 2 08/06/23 History tablet,extended release 24 hr multivitamin 1 tab PO DAILY 07/24/22 Unkn own History aspirin 81 mg tablet,delayed 81 mg PO DAILY 09/03/22 0 05/13/24 History release (Adult Low Dose Aspirin) duloxetine 60 mg capsule,delayed 60 mg PO DAILY Unknown History release glycopyrrolate 1 mg tablet 1 mg PO TID 09/03/22 History clopidogrel 75 mg tablet 75 mg PO DAILY #90 tabs 02/1105/13/24 Rx folic acid 1 mg tablet 1 mg PO DAILY #90 tabs 03/01 Unknown Rx pregabalin 50 mg capsule 50 mg PO DAILY #90 caps 02/11 01/04 Unknown Rx topiramate 25 mg tablet 25 mg PO BID #180 tabs 03/01 Unknown Rx rosuvastatin 20 mg tablet 20 mg PO QHS 05/16/24 Unknow n History Allergy/AdvReac Type Severity Reaction Status Date / Time atorvastatin (From Lipitor) Allergy Unknown unknown Verified 05/16/24 12:19 lisinopril Allergy Unknown unknown Verified 05/16/24 12:19 simvastatin (From Zocor) Allergy Unknown unknown Verified 05/16/24 12:19 Sulfa (Sulfonamide Allergy Unknown Headache, Verified 05/16/24 12:19 Antibiotics) nausea propoxyphene napsylate (From Allergy Unknown Verified 05/16/24 12:19 Darvocet-N) Family History Mother Hypertension High cholesterol Grandmother CVA (cerebral vascular accident) Other Alcoholism Cancer Surgical History History of esophagogastroduodenoscopy (EGD) History of cardiac catheterization History of knee replacement procedure of left knee History of left heart catheterization (06/13/14) History of sinus surgery History of squamous cell carcinoma excision History of colonoscopy (~2017) History of right breast biopsy History of back surgery Hx of cataract surgery H/O arthroscopic knee surgery H/O: hysterectomy Social History household members: spouse Smoking Status: Never smoker second hand exposure: No alcohol intake: never substance use type: does not use caffeine: Yes Type: coffee Number of servings: 1 what type of physical activity do you participate in: weight training and other frequency: 5-6 times per week meet/mandaen: Sikh seatbelt use: always Review of Systems (Anesthesia) ROS Narrative System reviewed and no additional complaints, except as documented.
[2024-05-18 11:52] VITALS: BP 143/72; PULSE 86; RESP 14; TEMP 35.9; O2SAT 99; BMI 29.7
--- NOTE | 2024-05-18 12:00 | HP.PCM_ITS ---
History and Physical MR#: [id number] Acct: [id number] Name: CASEDERRICK Rep #: [id number] : 1950 Provider: Dr. Abhi Roach MD Age/Sex: 73/F Location: [facility] Status: Signed Intake Vital Signs 03/15/2413:14 04/28/2509:09 05/02/2507:25 Height 5 ft 3 in 5 ft 3 in 5 ft 3 in Weight: 175 lb BMI 30.9 BP 127/73 H Blood Pressure Location Rt brachial Position Sitting Respiration 18 Pulse 81 Pulse Source Monitor Temp 97.2 F L Temp Source Temporal Pulse Oximetry (%) 92 Intake Visit Reasons: discuss surgery Chief Complaint: discuss surgery Is patient in pain?: No Allergies atorvastatin (From Lipitor) Allergy (Unknown, Verified 05/02/24 08:26) unknownlisinopril Allergy (Unknown, Verified 05/02/24 08:26) unknownsimvastatin (From Zocor) Allergy (Unknown, Verified 05/02/24 08:26) unknownSulfa (Sulfonamide Antibiotics) Allergy (Unknown, Verified 05/02/24 08:26) Headache, nauseapropoxyphene napsylate (From Darvocet-N) Allergy (Verified 05/02/24 08:26) Unknown Medications ?Medication ?Instructions ?Recorded ?Confirmed ?Type fluticasone propionate 50 50 mcg intranasal DAILY PRN PRN 01/10/22 05/02/24 History mcg/actuation nasal ALLERGIES spray,suspension (Flonase Allergy Relief) losartan 50 mg tablet 50 mg PO DAILY BP 01/10/22 05/02/24 History metoprolol succinate 100 mg 100 mg PO DAILY BP 01/10/22 05/02/24 History tablet,extended release 24 hr multivitamin 1 tab PO DAILY 07/24/22 05/02/24 History aspirin 81 mg tablet,delayed 81 mg PO DAILY 09/03/22 05/02/24 History release (Adult Low Dose Aspirin) duloxetine 60 mg capsule,delayed 60 mg PO DAILY 09/03/22 05/02/24 History release glycopyrrolate 1 mg tablet 1 mg PO TID 09/03/22 05/02/24 History rosuvastatin 20 mg tablet 20 mg PO DAILY #90 tabs 12/25/23 05/02/24 Rx clopidogrel 75 mg tablet 75 mg PO DAILY #90 tabs 03/01/24 05/02/24 Rx folic acid 1 mg tablet 1 mg PO DAILY #90 tabs 03/01/24 05/02/24 Rx pregabalin 50 mg capsule 50 mg PO DAILY #90 caps 03/01/24 05/02/24 Rx topiramate 25 mg tablet 25 mg PO BID #180 tabs 03/01/24 05/02/24 Rx Have you fallen in the past year?: No PFSH Medical History Epigastric pain Wears glasses Cancer Bruising Arthritis High cholesterol Gastric reflux Non-smoker Implantable loop recorder present History of echocardiogram Cardiology follow-up encounter Fatigue Abnormal mammogram of right breast Blood thinned due to long-term anticoagulant use GERD (gastroesophageal reflux disease) CVA (cerebral vascular accident) Alteration in vision Hypercholesterolemia Surgical History History of cardiac catheterization History of knee replacement procedure of left knee History of left heart catheterization (06/13/14) History of sinus surgery History of squamous cell carcinoma excision History of colonoscopy (~2016) History of right breast biopsy History of back surgery Hx of cataract surgery H/O arthroscopic knee surgery H/O: hysterectomy Family History Mother Hypertension High cholesterolGrandmother CVA (cerebral vascular accident)Other Alcoholism Cancer Social History household members: spouse Smoking Status: Never smoker second hand exposure: No alcohol intake: never substance use type: does not use caffeine: Yes Type: coffee Number of servings: 1 what type of physical activity do you participate in: weight training and other frequency: 5-6 times per week meet/mormonism: [employer] seatbelt use: always HPI HPI HPI: Patient is a 73-year-old female who makes repeat consultation related to epigastric discomfort. She is known to me for a history of hiatal hernia that was diagnosed in conjunction with symptoms of heartburn and acid reflux symptoms. Her last visit was October 2023. She presents today with her . She states flatly that she can eat anything without using lots of Tums. She reports that she uses at least a handful just to go to bed at night and that everything hurts me?referencing any food intake. She confesses that she did not think that she would be coming back but with the symptoms she had to see what her options were. In addition to taking twice daily PPI and the after mentioned time she is using cimetidine every evening as well. When asked if she is trying to change her lifestyle habits she shares that she has kind of cut back on spice. Lastly, as are conversation evolved she notes that she was scheduled for an MRI but underwent x-ray on 04/08/2024 and a metallic clip was seen at her GE junction so she was disqualified from proceeding for the MRI. Later in the course of our conversation Mrs. Quarles remarks that she is due to undergo a surveillance colonoscopy with Dr. Shearer at the end of this week. She expresses regret that she did not know I performed colonoscopies as well as she would like to couple this with her EGD. I shared with her that that could be a possibility. With this she immediately expressed further interest and stated that her last colonoscopy was in 2016 where she was found to have polyps. She recalls a 5-year follow-up but did not make this in 2021. When asked if she is experiencing any current issues with her bowel habits she denies anything new but states that she is always constipated. She estimates that is a week between bowel movements and when she does experience a bowel movement it is i mpacted. She estimates toilet time to pass stool at 30 to 60 minutes and confirms there is lots of straining involved. She confesses that she is not taking any regular fiber supplementation but does drink lots of water. She notes that this morning was particularly bad when she had a rockhard bowel movement. With this bowel movement she also noticed production of some bright red blood. Patient reports a family history of her father with diverticulitis and her mother has been diagnosed with colon cancer in her 70s. Below is recapitulated from patient's prior visit for ease review: Patient is a 73-year-old female who presents for reevaluation of heartburn and acid reflux symptoms. There was a delay in her follow-up after a missed visit and may following a EGD with pH probe placement on 08/06/2023. Patient's endoscopic exam found evidence of moderate chronic inflammation but no Basilio's esophagus at the GE junction. Additionally 5 fundic gland polyps were removed. Average DeMeester score for patient's pH probe study was 28.9. She reports at today's visit with her . She shares that overall her symptoms have remained stable in frequency?which she is on the status basically every time she eats. However, she qualifies this stating that she really does not eat much of breakfast or lunch. She describes upper abdominal pain as well as pain right smack in the middle of her back. She confesses that she continues to partake in habits that trigger the symptoms including drinking coffee and eating spicy foods. She relates that just last week she had a whole can of hot peppers. Her adds at this point that she has been taking more than 1 pantoprazole tablet per day due to some breakthrough symptoms. Mrs. Quarles shares that she hates taking medicine but then goes on to say but I do not want to have surgery either. Patient is prescribed 40 mg pantoprazole daily. She occasionally will take Tums in addition to this medication but was concerned about it possibly an activating the pantoprazole. When discussing general eating habits, her shares we eat so bad and Mrs. Quarles goes on to confess that they frequently eat past 9 PM at night due to other family engagements. ROS General General: No weight change, appetite, fatigue, colon cancer, breast cancer or weakness HEENT HEENT: No difficulty swallowing, eye injury, eye surgery, swollen glands or hoarseness Endo Endocrine: No thyroid disease, diabetes mellitus, thyroid cancer, Hair loss, heat intolerance or cold intolerance Skin Skin: No rash or changing moles Breast Breast: No left breast lump, right breast lump, nipple discharge, breast pain, abnormal mammogram, abnormal US or breast enlargement Musc Musculoskeletal: Yes arthritis; No back problems, rheumatoid arthritis, gout or joint pain Cardio Cardiovascular: No murmur, pacemaker, heart disease, atrial fibrillation, high blood pressure, heart attack, heart stent, palpitations, shortness of breat with exertion or chest pain Psych Psychiatric: No depression, anxiety or hearing voices Resp Respiratory: No shortness of breath, No sleep apnea, No cough, No COPD, No asthma, No emphysema and No wheezing Gastro Gastrointestinal: No abdominal pain, No nausea or vomiting, No diarrhea, No constipation, No blood in stool, Yes acid reflux, No hemorrhoids, No ulcers, No gallbladder problem and No black,tarry stools Guillermo Hematologic: No blood thinners, No blood disorders, No bleeding, No anemia and No blood clots Neuro Neurologic: No system reviewed and no additional complaints, except as documented, No as per HPI, No abnormal gait, No abnormal hearing, No abnormal movements, No abnormal speech, No behavioral changes, No burning sensations, No confusion, No convulsions, No disequilibrium, No dizziness, No localized weakness, No frequent falls, No headache(s), No lack of coordination, No loss of vision, No memory loss, Yes numbness, No other visual disturbances, No radicular pain, No restless legs, No sensory deficit, No syncope, Yes tingling, No tremor(s), No weakness and No other Exam Const General: cooperative and anxious Orientation: alert, awake and oriented x3 Resp Effort & Inspection: normal respiratory effort GI Other: Nondistended, soft, mild tenderness to palpation of the epigastrium?otherwise unremarkable Assessment and Plan Assessment and Plan (1) Hiatal hernia with GERD: Status: Chronic Comment: Patient is 73-year-old female that is severely symptomatic from a hiatal hernia with GERD symptoms despite maximal medical therapy with PPI, H2 ana, and Tums. Admittedly, some of her lifestyle choices precipitate the symptoms but patient states they are a big part of her enjoyment in life and she is unwilling to modify them. This previously represented part of her interest in proceeding with antireflux surgery but when she was advised that she may not be able to vomit or belch normally thereafter our discussion fell off. Patient presents today because of persistent symptoms which she finds intolerable. I did review our older conversations and confirmed that she now felt differently about a possible surgery. Even still during the course of our conversation she raised objections about the time away from activity and I reminded her that she would need to allow herself ample time for recovery to ensure an optimal outcome. She begrudgingly agreed and her also tried to provide perspective. Since it has been 9 months since her last scope and she is reporting some progression of symptoms I have recommended repeat EGD. After she shared that she had a retained hemostatic clip that is disqualifying her from an MRI the need for this study is furthered and I would plan to remove that clip at the time of repeat study. Additionally, I have informed her that we would need to proceed for upper GI with esophagram and esophageal manometry. The need for both of these exams was explained and patient agreed to proceed as recommended. Ultimately, shared my belief that barring any surprises with the studies I believe she would be an excellent candidate for hiatal hernia reduction and partial fundoplication. Plan: ? Repeat EGD with hemostatic clip removal; patient will need 5-day hold of aspirin and Plavix to minimize her risk for bleeding periprocedurally ? Upper GI with esophagram ? Esophageal manometry (2) GERD (gastroesophageal reflux disease): Status: Acute Comment: Patient with refractory reflux disease despite now transitioning to pantoprazole. She describes symptoms occurring with a daily frequency. She is additionally using Tums and famotidine. She has identified food triggers, but on apologetic lately states that she still likes these foods and simply tries to minimize their effect by avoiding them closer to bedtime. We had a rather lengthy conversation around reflux disease and pathologic states that lead to them. Specifically, addressed the scenario of a hiatal hernia and used a picture diagrams to facilitate this conversation. Regarding procedure plans, I shared with her the opportunity could be taken to perform a pH probe placement, however, she seems very reluctant to consider any additional surgery and simply is most interested in being screened for Basilio's esophagus. Therefore we will plan for diagnostic EGD alone with biopsy. Patient is on Plavix and will need to have this held for 7 days preprocedure to minimize her bleeding risk with these biopsies. Update 10/20/2023: Patient is a 73-year-old female who remains stable for her symptoms and overall describes relief with PPI medication. She freely confesses that she continues to engage in habits that provoke her symptoms, but is unwilling to change some of them due to her enjoyment of those things. However, when we discuss possibility of fundoplication I used hand drawings to illustrate the different anatomical states and described potential inability to either belch or vomit. Upon hearing this both patient and her immediately displayed a lack of acceptance with any further proposition of surgical intervention. Patient did ask whether or not she would even have to go through with additional EGD exams. Given that patient has no evidence of Basilio's esophagus and only mild gastritis I advised her that there would be no indication based on present data to repeat the endoscopy. And since she declines further discussion around surgery I will not proceed with any additional workup of her hiatal hernia at this time. I have advised her to simply take pantoprazole 40 mg daily and then supplement with either Tums or famotidine as needed for additional symptoms. Of also encouraged her to take proactive steps with limiting some of her habits that are likely provoking her symptoms. (3) Epigastric pain: Status: Acute Comment: Likely related to GERD (4) Personal history of colonic polyps: Status: Chronic Comment: Patient describes imminent colonoscopy with another provider. I suggested she could go for colonoscopy and EGD concurrently to save on sedation and holding of her antiplatelet agents with just 1 procedure. I offered to perform the procedure for her. Patient was immediately receptive. She does appear to be at some increased risk for colon cancer both reporting history of adenomatous polyps for herself and that she is overdue for surveillance colonoscopy as well as a family history for colon cancer (diagnosed in her mother) and her eighth decade of life. Given reports of constipation we will plan for 2-day bowel prep Plan: Plan will be to complete colonoscopy on first mutually agreeable date under local MAC. Pre-procedure prep discussed and paper instructions provided. Patient is also made aware that she will need to have a funeral driver with her the day of the procedure. (5) Family history of colon cancer in mother: Status: Acute Comment: Mother and eighth decade of life (70s) (6) Constipation: Status: Chronic Comment: Described as infrequent bowel movements approximately 1/week with lots of toilet time and straining. Some associated hematochezia noted. Patient is not supplementing her fiber and not taking any laxatives regularly. She has been instructed to try to make some meaningful changes with respect to these issues. (7) Hematochezia: Status: Acute Comment: Related constipation. Unclear if this is related to hemorrhoids or not. Orders: Orders Esophagus Single Contrast Today K21.9 - Gastro-esophageal reflux disease without esophagitis Coding Level of Care Code Off vis,est,level 4 Diagnoses Hiatal hernia with GERD K44.9; K21.9 GERD (gastroesophageal reflux disease) K21.9 Epigastric pain R10.13 Personal history of colonic polyps Z86.0100 Family history of colon cancer in mother Z80.0 Constipation K59.00 Hematochezia K92.1 Time Spent (min) 35 Clinical Quality Measures Falls Risk Screening/Assistive Devices Have you fallen in the past year?: No I have examined the patient and the H&P has been reviewed. There are no clinical changes since date of exam. Patient confirms that she completed prep for today's procedure and that her output is now relatively clear. She also confirms that she held her Plavix in anticipation of today's procedure. Will now proceed to endoscopy suite for EGD followed by colonoscopy as discussed in greater detail above.
--- NOTE | 2024-05-18 13:00 | EGD_PTH ---
PATIENT: DERRICK SALVADOR LOC: EN U#:[id number] AGE/SX: 73/F ROOM: RE05/18/[address]: Dr. Abhi Roach MD : 1950 BED: DIS: 05/18/2024 SPEC #: [id number] RECD: 05/18/24 17:31 STATUS: AL EVERETT #: [id number] SANDRA: 05/18/24 13:[address]: Abhi Roach DEPT: SURGICAL PATHOLOGY RECD BY: Jane Espinoza ENTERED: 05/19/24 07:36 SP TYPE: EGD BIOPSY OT DR: Dr. Stefani Ball MD Tissues: A - Gastric mucous membrane B - Esophagus, NOS C - Esophagus, NOS Procedures: Surgery Specimen Level IV HEADER OPERATION: Colonoscopy, EGD with gastric clip removal, polypectomy PRE-OP DIAGNOSIS: Hiatal hernia with GERD, epigastric pain, personal history of colonic polyps, family history of colon cancer in mother, hematochezia TISSUE SUBMITTED: A- Gastric antrum biopsy, B- Greater curvature polyps, C- Distal esophagus biopsy MICROSCOPIC DIAGNOSIS A. Gastric antrum, biopsy: Mild gastritis. See microscopic description and comment. B. Greater curvature polyps, biopsy: Fragments of fundic gland polyp. C. Distal esophagus, biopsy: Fragments of benign squamous epithelium. 05/20/2024 COMMENT A. The results of immunohistochemistry for Helicobacter pylori will be reported separately ([id number]). MICROSCOPIC DESCRIPTION Slides are reviewed. A. The specimen shows fragments of gastric mucosa with chronic inflammatory cell infiltrates in the lamina propria consisting of lymphocytes and plasma cells, consistent with mild chronic gastritis. GROSS DESCRIPTION A. Received in fixative is one container labeled with the patient's name and designated Gastric antrum biopsy. The specimen consists of two irregular fragments of light larson soft tissue that in aggregate measure 0.5 x 0.3 x 0.2 cm. The specimen is totally submitted in one cassette. B. Received in fixative is one container labeled with the patient's name and designated Greater curvature polyps. The specimen consists of multiple irregular fragments of light larson soft tissue that in aggregate measure 1 x 0.3 x 0.2 cm. The specimen is totally submitted in one cassette. C. Received in fixative is one container labeled with the patient's name and designated Distal esophagus biopsy. The specimen consists of multiple irregular fragments of light larson soft tissue that measuring in aggregate 0.3 x 0.3 x 0.2 cm. The specimen is totally submitted in one cassette. MS/mr 05/19/2024 TC:5 CPT:46435x4
--- NOTE | 2024-05-18 13:00 | IMM_PTH ---
PATIENT: DERRICK SALVADOR LOC: EN U#:[id number] AGE/SX: 73/F ROOM: RE05/18/[address]: Dr. Abhi Roach MD : 1950 BED: DIS: 05/18/2024 SPEC #: [id number] RECD: 05/19/24 08:38 STATUS: AL REYandy #: [id number] SANDRA: 05/18/24 13:[address]: Abhi Roach DEPT: IMMUNOHISTOCHEMISTRY RECD BY: Ubaldo Figueroa ENTERED: 05/19/24 08:38 SP TYPE: IMMUNO OTHR DR: Dr. Stefani Ball MD Tissues: A - Gastric mucous membrane Procedures: H Pylori (initial) PHYSICIAN & INSTITUTION [place] [id number] SPECIMEN INFORMATION: Tissue Source: A- Gastric antrum biopsy Clinical Info: Hiatal hernia with GERD, epigastric pain, personal history of colonic polyps, family history of colon cancer in mother, constipation, hematochezia Specimen Number: [id number] CPT code: 31630 METHODOLOGY: Deparaffinized sections of prefer/formalin-fixed tissue or PAP/DQ stained slides are incubated with monoclonal/polyclonal antibodies/oligonucleotide probes. Localization is made via biotin free immunoperoxidase method. Appropriate controls are performed and reacted as expected. Results on target cell population are indicated in the following table: RESULTS: ANTIBODY / CLONE RESULT Block AH Pylori (polyclonal) negative These tests were developed and their performance characteristics determined by [facility]. They may not have been cleared or approved by the [place]. Food and Drug Administration. The FDA has determined that such clearance or approval is not necessary. The above immunohistochemical/dualISH markers are ordered and reviewed by the Pathologist. INTERPRETATION: A. Gastric antrum, biopsy: Negative for Helicobacter pylori organisms. SAIGE. 05/20/2024
[2024-05-18 13:30] VITALS: BP 118/63; BP 143/72; PULSE 80; RESP 18; TEMP 37.6; O2SAT 97
--- NOTE | 2024-05-18 13:31 | OP.EGD_ITS ---
Patient Name: Anabella Case Procedure Date: 05/18/2024 12:06 PM Date of : 1950 Age: 73 Procedure: Upper GI endoscopy Indications: Gastro-esophageal reflux disease, retained hemostatic clip from previous EGD Providers: Abhi Roach MD Medicines: See the Anesthesia note for documentation of the administered medications Patient Profile: Refer to note in patient chart for documentation of history and physical. Complications: No immediate complications. Estimated blood loss: Minimal. Procedure: Pre-Anesthesia Assessment: - The heart rate, respiratory rate, oxygen saturations, blood pressure, adequacy of pulmonary ventilation, and response to care were monitored throughout the procedure. After obtaining informed consent, the endoscope was passed under direct vision. Throughout the procedure, the patient's blood pressure, pulse, and oxygen saturations were monitored continuously. The Endoscope was introduced through the mouth, and advanced to the second part of duodenum. The upper GI endoscopy was accomplished without difficulty. The patient tolerated the procedure well. Scope In: 12:25:58 PM Scope Out: 12:53:11 PM Total Procedure Duration Time 0 hours 27 minutes 13 seconds Findings: No gross lesions were noted in the duodenal bulb, in the first portion of the duodenum and in the second portion of the duodenum. No biopsies or other specimens were collected for this exam. Localized mildly erythematous mucosa without bleeding was found in the gastric antrum. Biopsies were taken with a cold forceps for Helicobacter pylori testing. Estimated blood loss was minimal. Multiple 3 mm semi-pedunculated polyps with no bleeding and no stigmata of recent bleeding were found in the stomach. The polyp was removed with a hot snare. Resection and retrieval were complete. Estimated blood loss: none. prior hemostatic clip placement at polypectomy site, The polyp was removed with a hot snare. Resection and retrieval were complete. Estimated blood loss was minimal. A medium-sized hiatal hernia was present. No biopsies or other specimens were collected for this exam. The Z-line was regular and was found 35 cm from the incisors. Biopsies were taken with a cold forceps for histology. Estimated blood loss was minimal. The exam was otherwise without abnormality. Impression: - No gross lesions in the duodenal bulb, in the first portion of the duodenum and in the second portion of the duodenum. No specimens collected. - Erythematous mucosa in the antrum. Biopsied. - Multiple gastric polyps. Resected and retrieved. - Medium-sized hiatal hernia. No specimens collected. - Z-line regular, 35 cm from the incisors. Biopsied. - The examination was otherwise normal. Recommendation: - Discharge patient to home (via wheelchair). - Resume previous diet today. - No aspirin, ibuprofen, naproxen, or other non-steroidal anti-inflammatory drugs for 2 days after biopsy. - Resume Plavix (clopidogrel) at prior dose in 2 days. Refer to managing physician for further adjustment of therapy. - Await pathology results. - Telephone my office for pathology results in 1 week. Procedure Code(s): --- Professional --- 05545, Esophagogastroduodenoscopy, flexible, transoral; with removal of tumor(s), polyp(s), or other lesion(s) by snare technique 00330, 59, Esophagogastroduodenoscopy, flexible, transoral; with biopsy, single or multiple Diagnosis Code(s): --- Professional --- K31.89, Other diseases of stomach and duodenum K31.7, Polyp of stomach and duodenum K44.9, Diaphragmatic hernia without obstruction or gangrene K21.9, Gastro-esophageal reflux disease without esophagitis CPT copyright 2021 [employer]. All rights reserved. The codes documented in this report are preliminary and upon mines safety engineer review may be revised to meet current compliance requirements. Abhi Roach MD 05/18/2024 1:30:49 PM This report has been signed electronically. Number of Addenda: 0 Note Initiated On: 05/18/2024 12:06 PM
--- NOTE | 2024-05-18 13:31 | OP.CCLET_ITS ---
05/18/2024 [address] [place] [address] Re : Upper GI endoscopy procedure for Anabella Case Dear Dr. Ball This procedure was performed on Saturday, May 18, 2024. My impressions and recommendations are as follows: Impressions : - No gross lesions in the duodenal bulb, in the first portion of the duodenum and in the second portion of the duodenum. No specimens collected. - Erythematous mucosa in the antrum. Biopsied. - Multiple gastric polyps. Resected and retrieved. - Medium-sized hiatal hernia. No specimens collected. - Z-line regular, 35 cm from the incisors. Biopsied. - The examination was otherwise normal. Recommendations : - Discharge patient to home (via wheelchair). - Resume previous diet today. - No aspirin, ibuprofen, naproxen, or other non-steroidal anti-inflammatory drugs for 2 days after biopsy. - Resume Plavix (clopidogrel) at prior dose in 2 days. Refer to managing physician for further adjustment of therapy. - Await pathology results. - Telephone my office for pathology results in 1 week. My findings are described in the full procedure note, which is enclosed. If I can be of further assistance, please feel free to contact me at Doctor phone number(s): , Work: . Sincerely, Abhi Roach MD 05/18/2024 1:30:49 PM This report has been signed electronically.
[2024-05-18 13:35] VITALS: BP 119/74; BP 143/72; PULSE 77; RESP 18; O2SAT 97
--- NOTE | 2024-05-18 13:37 | OP.COLON_ITS ---
Patient Name: Anabella Quarles Procedure Date: 05/18/2024 12:57 PM Date of : 1950 Age: 73 Procedure: Colonoscopy Indications: High risk colon cancer surveillance: Personal history of colonic polyps Providers: Abhi Roach MD Medicines: See the Anesthesia note for documentation of the administered medications Patient Profile: Refer to note in patient chart for documentation of history and physical. Last Colonoscopy: several years ago. Complications: No immediate complications. Estimated blood loss: None. Procedure: Pre-Anesthesia Assessment: - The heart rate, respiratory rate, oxygen saturations, blood pressure, adequacy of pulmonary ventilation, and response to care were monitored throughout the procedure. - The heart rate, respiratory rate, oxygen saturations, blood pressure, adequacy of pulmonary ventilation, and response to care were monitored throughout the procedure. After I obtained informed consent, the scope was passed under direct vision. Throughout the procedure, the patient's blood pressure, pulse, and oxygen saturations were monitored continuously. The colonoscope was introduced through the anus and advanced to the cecum, identified by the appendiceal orifice, ileocecal valve and palpation. The colonoscopy was performed without difficulty. The patient tolerated the procedure well. The quality of the bowel preparation was adequate to identify polyps greater than 5 mm in size. Scope In: 12:58:22 PM Scope Withdrawal Time 0 hours 10 minutes 10 seconds Scope Out: 1:16:27 PM Total Procedure Duration Time 0 hours 18 minutes 5 seconds Findings: The perianal and digital rectal examinations were normal. Pertinent negatives include normal sphincter tone. Internal hemorrhoids were found during retroflexion. The hemorrhoids were medium-sized and Grade I (internal hemorrhoids that do not prolapse). The exam was otherwise without abnormality on direct and retroflexion views. Impression: - Internal hemorrhoids. - The examination was otherwise normal on direct and retroflexion views. - No specimens collected. Recommendation: - Discharge patient to home (via wheelchair). - High fiber diet today. - No aspirin, ibuprofen, naproxen, or other non-steroidal anti-inflammatory drugs for 2 days after biopsy. - Repeat colonoscopy in 5 years for surveillance. - Telephone my office for study results in 1 week. Procedure Code(s): --- Professional --- G0105, Colorectal cancer screening; colonoscopy on individual at high risk Diagnosis Code(s): --- Professional --- Z86.010, Personal history of colonic polyps K64.0, First degree hemorrhoids CPT copyright 2021 [employer]. All rights reserved. The codes documented in this report are preliminary and upon ad operations specialist review may be revised to meet current compliance requirements. Abhi Roach MD 05/18/2024 1:37:27 PM This report has been signed electronically. Number of Addenda: 0 Note Initiated On: 05/18/2024 12:57 PM
--- NOTE | 2024-05-18 13:38 | OP.CCLET_ITS ---
05/18/2024 [address] Ball [address] [place] [address] Re : Colonoscopy procedure for Anabella Case Dear Dr. Ball This procedure was performed on Saturday, May 18, 2024. My impressions and recommendations are as follows: Impressions : - Internal hemorrhoids. - The examination was otherwise normal on direct and retroflexion views. - No specimens collected. Recommendations : - Discharge patient to home (via wheelchair). - High fiber diet today. - No aspirin, ibuprofen, naproxen, or other non-steroidal anti-inflammatory drugs for 2 days after biopsy. - Repeat colonoscopy in 5 years for surveillance. - Telephone my office for study results in 1 week. My findings are described in the full procedure note, which is enclosed. If I can be of further assistance, please feel free to contact me at Doctor phone number(s): , Work: . Sincerely, Abhi Roach MD 05/18/2024 1:37:27 PM This report has been signed electronically.
[2024-05-18 13:40] VITALS: BP 127/64; BP 143/72; PULSE 75; RESP 16; TEMP 37.4; O2SAT 97
--- NOTE | 2024-05-18 14:13 | PCM.POST.ANE ---
Anesthesia: Postop Eval I Current Vital Signs Temperature: 99.3 F Pulse Rate: 75 Blood Pressure: 127/64 Respiratory Rate: 16 Pulse Ox: 97 Oxygen Delivery Method: Room Air Assessment Airway patent: Yes Spontaneous unlabored respirations: Yes nausea: No Vomiting: No Anesthesia Complication: No Fluid Hydration Crystalloid volume administer (ml): 10 Total IV fluid infused: 10 Progress Note Anesthesia document: Postop Eval 1 completed: Yes
[2024-05-18 14:14] VITALS: BP 127/64; PULSE 75; RESP 16; TEMP 37.4; O2SAT 97
--- NOTE | 2024-05-18 14:14 | PCM.POSTANE2 ---
Anesthesia Postop Eval I Sum Postop Eval Completion status Anesthesia document: Postop Eval 1 completed: Yes Anesthesia Postop Eval I Summary Anesthesia Postop Eval I Summary: Anesthesia Postop Eval I: Assessment Summary Airway patent Yes 05/18/24 14:14 Spontaneous unlabored Yes 05/18/24 14:14 respirations Mental status nausea No 05/18/24 14:14 Vomiting No 05/18/24 14:14 Anesthesia Postop Eval I: Fluid Summary Crystalloid volume administer 10 05/18/24 14:14 (ml) Colloids volume administered ( ml) Blood Product volume administered (ml) Total IV fluid infused 10 05/18/24 14:14 Anesthesia Postop Eval I: Summary Notes Anesthesia Complication No 05/18/24 14:14 Anesthesia Complication Comment: Post-operative progress note Anesthesia: Postop Eval II Evaluation Mental status: Awake Pain Level: 0 nausea: No Vomiting: No
== END 2024-05-18 14:11 | disposition home or self-care (01) ==
LOC: EN 11:33 → AC 11:44
PROVIDERS: PCP Family Medicine; Referring Provider Family Medicine; Visit Provider Surgery
PROC: 0DJD8ZZ Inspection of Lower Intestinal Tract, Via Natural or Artificial Opening Endoscopic (ICD-10-PCS; CPT 45378; principal; 2024-05-18 12:55)
DX: Z12.11 Encounter for screening for malignant neoplasm of colon (principal); K64.0 First degree hemorrhoids; K44.9 Diaphragmatic hernia without obstruction or gangrene; K31.7 Polyp of stomach and duodenum; K21.9 Gastro-esophageal reflux disease without esophagitis; K59.09 Other constipation; K29.51 Unspecified chronic gastritis with bleeding; I10 Essential (primary) hypertension; E78.00 Pure hypercholesterolemia, unspecified; Z79.02 Long term (current) use of antithrombotics/antiplatelets; Z79.82 Long term (current) use of aspirin; Z79.899 Other long term (current) drug therapy; Z86.0101 Personal history of adenomatous and serrated colon polyps; Z80.0 Family history of malignant neoplasm of digestive organs
CPT/HCPCS: G0105; 43239; 43251; 88305; 88312; 88342; A4216

== ENCOUNTER 2024-05-20 07:50 | Day surgery (SDC) | payer MEDICARE, SELFPAY ==
[2024-05-20 08:08] VITALS: BP 96/52; PULSE 77; RESP 18; TEMP 36.2; O2SAT 100
[2024-05-20] MEDS: Lidocaine Jelly 2% 20 ML Syringe (URO-JET) 1 APPLIC (08:26)
== END 2024-05-20 08:33 | disposition home or self-care (01) ==
PROVIDERS: PCP Family Medicine; Referring Provider Family Medicine; Visit Provider Surgery
PROC: F00ZJWZ Instrumental Swallowing and Oral Function Assessment using Swallowing Equipment (ICD-10-PCS; CPT 43235; principal; 2024-05-20 07:55)
DX: Z12.11 Encounter for screening for malignant neoplasm of colon (principal); K64.0 First degree hemorrhoids; Z86.0100 Personal history of colon polyps, unspecified; K31.89 Other diseases of stomach and duodenum; K31.7 Polyp of stomach and duodenum; K44.9 Diaphragmatic hernia without obstruction or gangrene; K21.9 Gastro-esophageal reflux disease without esophagitis; Z86.73 Personal history of transient ischemic attack (TIA), and cerebral infarction without residual deficits; E78.00 Pure hypercholesterolemia, unspecified; Z90.710 Acquired absence of both cervix and uterus; K59.00 Constipation, unspecified; R10.13 Epigastric pain; Z80.0 Family history of malignant neoplasm of digestive organs; K92.1 Melena; Z79.82 Long term (current) use of aspirin
CPT/HCPCS: 43251; 43239; G0105

== ENCOUNTER → 2024-05-23 | Outpatient (CLI) | payer MEDICARE, SELFPAY ==
--- NOTE | 2024-05-23 08:38 | RAD_ITS ---
EXAM: ESOPHAGUS DUAL CONTRAST CLINICAL HISTORY: Epigastric pain and gastroesophageal reflux. COMPARISON: None. TECHNIQUE: The patient ingested barium. Air contrast examination of the esophagus was obtained. The patient ingested a 12 mm tablet the barium. FINDINGS: Small sliding hiatal hernia with gastroesophageal reflux. Mild degree of tertiary contractions of the distal esophagus. The patient ingested a 12 mm tablet the barium without any difficulty. RAD/Esophagus Dual Contrast IMPRESSION: Small sliding hiatal hernia with gastroesophageal reflux. Mild degree of tertiary contractions of the distal esophagus. Reading Location: [place] [address]
== END | disposition home or self-care (01) ==
LOC: RAD 08:35
PROVIDERS: PCP Family Medicine; Referring Provider Surgery; Visit Provider Surgery
DX: K21.9 Gastro-esophageal reflux disease without esophagitis (principal)
CPT/HCPCS: 74221

== ENCOUNTER → 2024-06-02 | Outpatient (CLI) | payer MEDICARE, SELFPAY ==
[2024-06-02 10:52] LABS: Ferritin 34 ng/mL (8-252); Iron 53 ug/dL (50-170)
== END | disposition home or self-care (01) ==
LOC: MTLAB 08:58
PROVIDERS: PCP Family Medicine; Referring Provider Psychiatry & Neurology Neurology; Visit Provider Psychiatry & Neurology Neurology
DX: Z86.2 Personal history of diseases of the blood and blood-forming organs and certain disorders involving the immune mechanism (principal)
CPT/HCPCS: 36415; 82728; 83540

== ENCOUNTER → 2024-06-11 | Outpatient (CLI) | payer MEDICARE, SELFPAY ==
--- NOTE | 2024-04-08 13:00 | RAD_ITS ---
INDICATION: MRI clearance for foreign body -- resolution clip and Lynn PH capsule have been excreted EXAMINATION/TECHNIQUE: X-RAY - XR Abdomen 1 View COMPARISON: None FINDINGS: Foreign body: 1. There is a foreign body projecting LEFT upper quadrant in the region of the GE junction measuring approximately 2.3 cm of uncertain etiology. This may represent a clip however does not have acoustic appearance of a Resolution Clip]. BOWEL GAS PATTERN: Non-obstructive. No bowel or stomach distention. FREE AIR: Not assessed on a single supine view. ORGANOMEGALY: Not seen. CALCIFICATIONS: No abnormal calcifications observed. LOWER CHEST: No acute pathology. BONES AND SOFT TISSUES: No acute pathology. RAD/Abdomen Single View IMPRESSION: 1. Radiopaque foreign body projecting within the LEFT upper quadrant in the region of the GE junction, measuring approximately 2.3 cm in length. This is of uncertain etiology, however may represent a cleft. The configuration however it is not characteristic of a Resolution Clip. 2. Identification and verification of this foreign body is warranted. Electronically Signed: Dhaval Mendez MD at 16:56 EST ,
--- NOTE | 2024-04-08 13:00 | RAD_ITS ---
INDICATION: LOOP RECORDER PLACEMENT CLEARANCE-SUPINE -- SUPINE ONLY EXAMINATION/TECHNIQUE: X-RAY - XR Chest 1 View COMPARISON: 01/10/2022 FINDINGS: LIFE-SUPPORT AND LINES: 1. Cardiac loop monitor has been place the interval, projecting at the level of the LEFT anterior 3rd rib. 2. Additional radiopaque foreign body projecting in the upper abdomen at the level of the GE junction. This is of uncertain etiology. HEART AND VESSELS: The cardiac silhouette, pulmonary vasculature have normal appearance. No evidence of congestive failure. LUNGS AND PLEURAL SPACES: Lungs are clear. No focal infiltrate, consolidation or effusions. No evidence of pneumothorax. Patchy area of density at the RIGHT CP angle with negligible change.. MEDIASTINUM AND HILAR REGIONS: No masses adenopathy noted. No areas of calcification. Visualized upper airway is normal in position. BONY ELEMENTS: No acute bony changes noted. RAD/Chest 1 View IMPRESSION: 1. Cardiac loop monitor placed in the interval projecting at the level of the LEFT anterior 3rd rib.. 2. Linear foreign body projecting in the LEFT upper quadrant, of uncertain etiology. 3. No evidence of acute cardiopulmonary process. 4. Stable appearance of a nodular density at the RIGHT base. Electronically Signed: Dhaval Mendez MD at 17:00 EST ,
--- NOTE | 2024-06-11 06:52 | MRI_ITS ---
PROCEDURE: BRAIN WITHOUT CONTRAST REASON FOR EXAM: History of CVA; possible recurrent CVA (memory loss; aphasis) TECHNIQUE: Multiplanar, multisequence MRI of the brain was performed without none intravenous gadolinium-based contrast. CONTRAST: None COMPARISON: 08/11/2022 FINDINGS: Redemonstrated remote left occipital infarct with ex vacuo dilatation of the occipital horn of the left lateral ventricle. There is no acute infarct, definite intracranial hemorrhage, or solid mass. Mild cerebral volume loss and moderate patchy supratentorial white matter signal abnormalities, nonspecific but likely to reflect chronic microvascular ischemic changes. The brainstem, posterior fossa and cervicomedullary junction are unremarkable. Bilateral cataract surgery. Scalp, calvarium, and paranasal sinuses are grossly unremarkable. Unremarkable major intracranial flow voids. MRI/Brain without Contrast IMPRESSION: 1. No acute intracranial findings. Redemonstrated remote left occipital infarct . If there is persistent concern, recommend noncontrast CT as this is more sensitive for small volumes of intracranial hemo rrhage. 2. Additional description as above. Reading Location: [id number]
== END | disposition home or self-care (01) ==
LOC: MRI 07:18
PROVIDERS: PCP Family Medicine; Referring Provider Psychiatry & Neurology Neurology; Visit Provider Psychiatry & Neurology Neurology
DX: R41.3 Other amnesia (principal); Z86.73 Personal history of transient ischemic attack (TIA), and cerebral infarction without residual deficits
CPT/HCPCS: 70551; 71045; 74018

== ENCOUNTER → 2024-08-30 | Outpatient (CLI) | payer MEDICARE, SELFPAY ==
--- NOTE | 2024-08-30 06:58 | BI_ITS ---
EXAM: SCRN MAMM (CAD)W/APURVA BILAT DATE: 08/30/2024 CLINICAL HISTORY: F, Age 73 y/o , SCREENING No family history. BREAST CANCER RISK ASSESSMENT: Not assessed. TECHNIQUE: Bilateral screening digital breast tomosynthesis with 2D and 3D images. Computer aided detection. COMPARISON: Prior exam(s) dated August 24, 2023.. FINDINGS: TISSUE DENSITY: The breast tissue is extremely dense which lowers the sensitivity of mammography. Bilateral Breast Mammographic Findings: No significant masses, calcifications or other abnormalities are identified. Once again, a tissue clip marker is seen in the upper anterior lateral aspect of the right breast. A loop recording device is seen along the medial aspect of the left breast. No suspicious masses, areas of developing architectural distortion, or suspicious calcifications. There has been no significant interval change. BI/SCRN MAMM (CAD)W/APURVA BILAT IMPRESSION: OVERALL FINAL ASSESSMENT: BIRADS 2 BENIGN FINDING RECOMMENDATION: Routine annual follow-up in 1 Year A letter with findings and recommendations will be mailed to the patient. Reading Location: [place] [address]
--- NOTE | 2024-08-30 07:05 | BD_ITS ---
PROCEDURE: DEXA BONE DENSITY STUDY 08/30/2024 REASON FOR EXAM: F, age 73 y/o . Postmenopausal. TECHNIQUE: DXA scan of sites with data reported below. REFERENCE LINKS: [facility] Adult Positions COMPARISON: Prior study dated June 09, 2018. FINDINGS: BMD and T-SCORES Lumbar spine: 1.151 g/cm2, T-score 0.9 Levels: L1 through L4 Change from prior: Loss of 7.7%. Left femoral neck: 0.962 g/cm2, T-score 1.0 Femoral neck comparison data not recommended for monitoring change. Left total hip: 1.1 no for g/cm2, T-score 1.3 Change from prior: Loss of 1.1%. Right femoral neck: 0.887 g/cm2, T-score 0.3 Femoral neck comparison data not recommended for monitoring change. Right total hip: 1.099 g/cm2, T-score 1.3 Change from prior: Loss of 1.9%. The World Health Organization has defined the following categories based on bone density: Normal bone density: T-score equal to or greater than -1.0 Osteopenia: T-score between -1.0 and -2.5 Osteoporosis: T-score equal to or less than -2.5 The patient does meet the pharmacological treatment recommendations for prevention of osteoporosis. BD/Dexa Bone Density Study IMPRESSION: NORMAL T-SCORES. Recommend follow-up as clinically warranted. Reading Location: [place] [address]
== END | disposition home or self-care (01) ==
LOC: OPBD 06:56
PROVIDERS: PCP Family Medicine
DX: Z12.31 Encounter for screening mammogram for malignant neoplasm of breast (principal); Z78.0 Asymptomatic menopausal state
CPT/HCPCS: 77063; 77067; 77080

== ENCOUNTER 2024-09-09 05:55 | Day surgery (SDC) | payer MEDICARE, SELFPAY ==
--- NOTE | 2024-08-30 07:33 | EKG12_ITS ---
Test Reason : PREOP Blood Pressure : */* mmHG Vent. Rate : 68 BPM Atrial Rate : 68 BPM P-R Int : 188 ms QRS Dur : 76 ms QT Int : 396 ms P-R-T Axes : 57 28 91 degrees QTcB Int : 421 ms Normal sinus rhythm Inferior infarct , age undetermined Abnormal ECG Confirmed by CUAUHTEMOC ROSENTHAL, JARVIS ([id number]), editorial assistant REGINALD HARO ([id number]) on 08/31/2024 6:03:53 AM Referred By: Abhi Roach Confirmed By: JARVIS POSADAS MD
[2024-08-30 08:57] LABS: Hematocrit 36.3 % (37-47); Hemoglobin 11.7 g/dL (12.0-15.0); Mean Corp Hgb Conc 32.2 g/dL (32-36); Mean Corpuscular Volume 90.1 fL (81-99); Mean Platelet Vol. 11.1 fl (6.2-12.0); Platelet Count 271 K/mm3 (150-450); RBC Distribution Width SD 46.3 fl (35.1-43.9); Red Blood Count 4.03 M/mm3 (4.2-5.4); White Blood Count 9.7 K/mm3 (4.4-11.0)
[2024-08-30 09:41] LABS: Anion Gap 12 (5-15); BUN 13 mg/dL (4-19); BUN/Creat Ratio 11.4 RATIO (10-20); Carbon Dioxide 21.1 mmol/L (21.0-32.0); Chloride 108 mmol/L (98-108); Creatinine, Serum 1.11 mg/dL (0.70-1.20); EST Glomerular Filtration Rate 53 (>60); Glucose 111 mg/dL (70-99); Sodium Level 142 mmol/L (133-145)
--- NOTE | 2024-08-31 08:51 | PAT.ANESEVAL ---
Pre-Assessment Diagnosis/Proposed Procedure Planned Operative Procedure(s): Laparoscopic, Srini Fundoplication Hital hernia repair with toupet fundolplication Anesthesia History Anesthesia History - dredge or barge shore hand: Anesthesia History - dredge or barge shore hand Hx Hospitalization No 08/25/24 14:30 Any Problems With Anesthesia No 08/25/24 14:30 Cholinesterase deficiency No 08/25/24 14:30 You/Your Family Experience No 08/25/24 14:30 fever (hyperthermia) with Relationship Recent Exposure to Contagious No 05/18/24 11:52 Disease Does patient have nerve No 08/25/24 14:30 stimulator Patient instructed to have device shut off --Does patient have Pacemaker or ICD? When Was Last Pacemaker Check QUESTION #4 FULL TEXT: You/Your Family Experience fever (hyperthermia) with Anesthesia Last Oral Intake Last Oral intake: Last Oral Intake NPO since Meds taken in AM with sips of water? Meds patient instructed to take am of surgery PONV PONV - dredge or barge shore hand: PONV - dredge or barge shore hand Female Yes 08/25/24 14:30 HX of Motion Sickness Yes 08/25/24 14:30 HX of N/V After Surgery Yes 08/25/24 14:30 Non-Smoker Yes 08/25/24 14:30 Duration of Surgery greater Yes 08/25/24 14:30 than 60 minutes Number of Risk Factors 5 08/25/24 14:30 PONV Score Severe Risk 08/25/24 14:30 Height & Weight Height & Weight: Anesthesia: Height & Weight Height 5 ft 3 in 08/12/24 08:28 Respiratory Assessment Respiratory Assessment - dredge or barge shore hand: Respiratory Tract Infection Hx - dredge or barge shore hand Hx Respiratory Tract Infection No 08/25/24 14:30 STOP Sleep Apnea STOP Sleep Apnea - dredge or barge shore hand: STOP Sleep Apnea - dredge or barge shore hand Hx Hypertension Yes: on meds 08/25/24 14:30 Hx Sleep Apnea No 08/25/24 14:30 CPAP BIPAP Do you snore loudly (louder No 08/25/24 14:30 than talking or can be heard Do you often feel tired/ No 08/25/24 14:30 fatigued/ sleepy during daytime? Has anyone observed you stop No 08/25/24 14:30 breathing during sleep? STOP Results Negative 08/25/24 14:30 QUESTION #5 FULL TEXT : Do you snore loudly (louder than talking or can be heard through closed doors)? Tobacco Use History Tobacco Use History - dredge or barge shore hand: Tobacco Use History - dredge or barge shore hand Tobacco Use Smoking Status Never smoker 08/25/24 14:30 Hx Tobacco Use No 08/25/24 14:30 Years Smoking Packs Smoked per Day Smoking Cessation Date was within the last 15 years Hx Smoking Cessation Date Hx Smoking Cessation No 08/25/24 14:30 Counseling Hematologic Medial History Hematologic Hx - dredge or barge shore hand: Hematologic Medical Hx - rn clinical documentation Hx of Blood Transfusion No 08/25/24 14:30 Hx of Transfusion in last 3 No 08/25/24 14:30 Months Date of Last Transfusion (if within last 3 months) Ever experience any problems No 08/25/24 14:30 with transfusion(s)? Specify any problems Hx of Preganancy in last 3 No 08/25/24 14:30 Months Nurse Filling Out Transfusion JZOLLINGE 08/25/24 14:30 & Questions: Date: 08/25/24 08/25/24 14:30 Time: 14:33 08/25/24 14:30 Patient unable to answer at this time (ie. confused, unrespo /Reproduction History /Reproductive History - dredge or barge shore hand: /Reproductive Hx- dredge or barge shore hand Hx Now No 08/25/24 14:30 Gestational Age (in weeks): EDC: Hx Hx Para Hx Section SAB No 08/25/24 14:30 PFSH Medical History (Updated 08/25/24 @ 14:30 by Gisela Jansen) Easy bruising Migraine headache Hypertension Epigastric pain Wears glasses Cancer Arthritis High cholesterol Gastric reflux Non-smoker Implantable loop recorder present History of echocardiogram Cardiology follow-up encounter Fatigue Abnormal mammogram of right breast Blood thinned due to long-term anticoagulant use GERD (gastroesophageal reflux disease) CVA (cerebral vascular accident) Alteration in vision Hypercholesterolemia Home Medications ?Medication ?Instructions ?Recorded ?Last Taken ?Type fluticasone propionate 50 50 mcg intranasal DAILY PRN PRN 01/10/22 01/10/22 History mcg/actuation nasal ALLERGIES spray,suspension (Flonase Allergy Relief) losartan 50 mg tablet 50 mg PO DAILY BP 01/10/22 05/17/24 History metoprolol succinate 100 mg 100 mg PO DAILY BP 01/10/22 05/17/24 History tablet,extended release 24 hr multivitamin 1 tab PO DAILY 07/24/22 05/17/24 History aspirin 81 mg tablet,delayed 81 mg PO DAILY 09/03/22 05/13/24 History release (Adult Low Dose Aspirin) duloxetine 60 mg capsule,delayed 60 mg PO DAILY 09/03/22 05/17/24 History release glycopyrrolate 1 mg tablet 1 mg PO TID 09/03/22 05/17/24 History clopidogrel 75 mg tablet 75 mg PO DAILY #90 tabs 05/23/24 Unknown Rx folic acid 1 mg tablet 1 mg PO DAILY #90 tabs 05/23/24 Unknown Rx topiramate 25 mg tablet 25 mg PO BID #180 tabs 05/23/24 Unknown Rx rosuvastatin 20 mg tablet 20 mg PO QHS #90 tabs 05/24/24 Unknown Rx pantoprazole 40 mg tablet,delayed 40 mg PO QDAY 06/20/24 Unknown History release estradiol 0.01% (0.1 mg/gram) 1 appful vaginal .as directed PRN 08/25/24 Unknown History vaginal cream vaginal dryness pregabalin 50 mg capsule 50 mg PO BID 08/25/24 Unknown History Allergy/AdvReac Type Severity Reaction Status Date / Time propoxyphene napsylate (From Allergy Mild Nausea/Vom/ Verified 08/25/24 14:13 Darvocet-N) Diarrhea atorvastatin (From Lipitor) Allergy Unknown unknown Verified 08/25/24 14:13 simvastatin (From Zocor) Allergy Unknown unknown Verified 08/25/24 14:13 Sulfa (Sulfonamide Allergy Unknown Headache, Verified 08/25/24 14:13 Antibiotics) nausea Family History Mother Hypertension High cholesterol Grandmother CVA (cerebral vascular accident) Other Alcoholism Cancer Surgical History (Updated 08/25/24 @ 14:30 by Gisela Jansen) History of esophagogastroduodenoscopy (EGD) History of cardiac catheterization History of knee replacement procedure of left knee History of left heart catheterization (06/13/14) History of sinus surgery History of squamous cell carcinoma excision History of colonoscopy (~2016) History of right breast biopsy History of back surgery Hx of cataract surgery H/O arthroscopic knee surgery H/O: hysterectomy Social History household members: spouse Smoking Status: Never smoker second hand exposure: No alcohol intake: never substance use type: does not use caffeine: Yes Type: coffee Number of servings: 1 what type of physical activity do you participate in: weight training and other frequency: 5-6 times per week meet/moravian: Pentecostalism seatbelt use: always Audit: Pertinent Findings Pertinent Findings EKG Perinent findings: 08/30/2024. Normal sinus rhythm 68 bpm. Inferior infarct, age undetermined. Echo (EF%) pertinent findings: KENTRELL. EF 60%. Normal function. No thrombus detected. Consult pertinent findings: Cardiology. 09/03/2022. Afford. CVA. Acute. Recommend echocardiogram. Patent foramen ovale. Recommendation Anesthesia Recommendation Anesthesia recommendation: OPTIMIZED for anesthesia
[2024-09-09] VITALS (9 sets, daily range): BP systolic 130–164; BP diastolic 57–99; PULSE 67–82; RESP 16–18; TEMP 36.6–36.8; O2SAT 94–99
[2024-09-09] MEDS: Lactated Ringers 1,000 ML 15 ML IV (06:35)
--- NOTE | 2024-09-09 06:49 | PCM.PRE.AN2 ---
ASA Classification* ASA Classification ASA Classification: 3 Assessment & Plan Anesthesia* Anesthesia Assessment Anesthesia Assessment: Discussed sedation and/or anesthesia options, risks, benefits, and alternatives with patient/parents/legal guardian/POA. Questions invited. The patient/parents/legal guardian/POA seems to understand and agrees to proceed with anesthesia plan. Reviewed the physical assessment, medical history, allergy history and patient home medications list prior to surgery/procedure/anesthetic and documented any changes. Performed airway and anesthesia risk assessments. Anesthesia Type Anesthesia Type: General (Consider GlideScope intubation.) History Source History Obtained from:: Patient and Chart Anesthesia Focused Assessment* Oxygen Delivery Method: Room Air Airway Assessment Mouth opens: >3 cm Mallampati Score: IV Teeth Condition: Missing (Patient has a bottom right molar that is missing. Everything else is tight.) Neck Range of motion (ROM): Full ROM Focused Labs Anesthesia Preop lab: CBC WBC 9.7 K/mm3 (4.4-11.0) 08/30/24 07:36 08/30/24 RBC 4.03 M/mm3 (4.2-5.4) L 08/30/24 07:36 08/30/24 Hgb 11.7 g/dL (12.0-15.0) L 08/30/24 07:36 08/30/24 Hct 36.3 % (37-47) L 08/30/24 07:36 08/30/24 Plt Count 271 K/mm3 (150-450) 08/30/24 07:36 08/30/24 CHEMISTRY Potassium 4.0 mmol/L (3.3-5.1) 08/30/24 07:36 08/30/24 Sodium 142 mmol/L (133-145) 08/30/24 07:36 08/30/24 BUN 13 mg/dL (4-19) 08/30/24 07:36 08/30/24 Creatinine 1.11 mg/dL (0.70-1.20) 08/30/24 07:36 08/30/24 Glucose 111 mg/dL (70-99) H 08/30/24 07:36 08/30/24 TSH 2.820 uIU/mL (0.358-3.740) 03/01/24 08:17 03/01/24 COAG PT 13.1 SECONDS (11.7-14.9) 01/10/22 17:00 01/10/22 Pre-Assessment Diagnosis/Proposed Procedure Planned Operative Procedure(s): Laparoscopic, Srini Fundoplication Hital hernia repair with toupet fundolplication Anesthesia History 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 Slow to wake up. 08/25/24 14:30 Cholinesterase deficiency No 08/25/24 14:30 You/Your Family Experience No 08/25/24 14:30 fever (hyperthermia) with Relationship Recent Exposure to Contagious No 05/18/24 11:52 Disease Does patient have nerve No 08/25/24 14:30 stimulator Patient instructed to have device shut off --Does patient have Pacemaker or ICD? When Was Last Pacemaker Check QUESTION #4 FULL TEXT: You/Your Family Experience fever (hyperthermia) with Anesthesia Last Oral Intake Last Oral intake: Last Oral Intake NPO since Meds taken in AM with sips of water? Meds patient instructed to take am of surgery Any additional information?: Yes NPO since: 00:00 Meds taken in AM with sips of water?: No PONV PONV - vending technician: PONV - vending technician Female Yes 08/25/24 14:30 HX of Motion Sickness Yes 08/25/24 14:30 HX of N/V After Surgery Yes 08/25/24 14:30 Non-Smoker Yes 08/25/24 14:30 Duration of Surgery greater Yes 08/25/24 14:30 than 60 minutes Number of Risk Factors 5 08/25/24 14:30 PONV Score Severe Risk 08/25/24 14:30 Height & Weight Height & Weight: Anesthesia: Height & Weight Height 5 ft 3 in 08/12/24 08:28 Respiratory Assessment Respiratory Assessment - vending technician: Respiratory Tract Infection Hx - vending technician Hx Respiratory Tract Infection No 08/25/24 14:30 STOP Sleep Apnea STOP Sleep Apnea - vending technician: STOP Sleep Apnea - vending technician Hx Hypertension Yes: on meds 08/25/24 14:30 Hx Sleep Apnea No 08/25/24 14:30 CPAP BIPAP Do you snore loudly (louder No 08/25/24 14:30 than talking or can be heard Do you often feel tired/ No 08/25/24 14:30 fatigued/ sleepy during daytime? Has anyone observed you stop No 08/25/24 14:30 breathing during sleep? STOP Results Negative 08/25/24 14:30 QUESTION #5 FULL TEXT : Do you snore loudly (louder than talking or can be heard through closed doors)? Tobacco Use History Tobacco Use History - vending technician: Tobacco Use History - vending technician Tobacco Use Smoking Status Never smoker 08/25/24 14:30 Hx Tobacco Use No 08/25/24 14:30 Years Smoking Packs Smoked per Day Smoking Cessation Date was within the last 15 years Hx Smoking Cessation Date Hx Smoking Cessation No 08/25/24 14:30 Counseling Hematologic Medial History Hematologic Hx - vending technician: Hematologic Medical Hx - director medical safety Hx of Blood Transfusion No 08/25/24 14:30 Hx of Transfusion in last 3 No 08/25/24 14:30 Months Date of Last Transfusion (if within last 3 months) Ever experience any problems No 08/25/24 14:30 with transfusion(s)? Specify any problems Hx of Preganancy in last 3 No 08/25/24 14:30 Months Nurse Filling Out Transfusion JZOLLINGE 08/25/24 14:30 & Questions: Date: 08/25/24 08/25/24 14:30 Time: 14:33 08/25/24 14:30 Patient unable to answer at this time (ie. confused, unrespo /Reproduction History /Reproductive History - vending technician: /Reproductive Hx- vending technician Hx Now No 08/25/24 14:30 Gestational Age (in weeks): EDC: Hx Hx Para Hx Section SAB No 08/25/24 14:30 Active Medications Active Medications: Current Medications Generic Name Dose Route Start Last Admin Trade Name Freq PRN Reason Stop Dose Admin Cefazolin Sodium 2 gm/ Sodium 110 mls @ 150 mls/hr 09/09/24 07:30 Chloride IV 09/09/24 08:13 INTRAOP ONE Lactated Ringer's 1,000 mls @ 15 mls/hr 09/09/24 06:15 IV .Q48H ARTHUR PFSH Medical History (Updated 09/09/24 @ 07:[address] José Miguel Cardona MD) Easy bruising Migraine headache Hypertension Epigastric pain Wears glasses Cancer Arthritis High cholesterol Gastric reflux Non-smoker Implantable loop recorder present History of echocardiogram Cardiology follow-up encounter Fatigue Abnormal mammogram of right breast Blood thinned due to long-term anticoagulant use GERD (gastroesophageal reflux disease) CVA (cerebral vascular accident) Alteration in vision Hypercholesterolemia Home Medications ?Medication ?Instructions ?Recorded ?Last Taken ?Type fluticasone propionate 50 50 mcg intranasal DAILY PRN PRN 01/10/22 09/07/24 History mcg/actuation nasal ALLERGIES spray,suspension (Flonase Allergy Relief) losartan 50 mg tablet 50 mg PO DAILY BP 01/10/22 09/08/24 21:30 History metoprolol succinate 100 mg 100 mg PO DAILY BP 01/10/22 09/08/24 21:30 History tablet,extended release 24 hr multivitamin 1 tab PO DAILY 07/24/22 09/08/24 12:30 History aspirin 81 mg tablet,delayed 81 mg PO DAILY 09/03/22 09/08/24 21:30 History release (Adult Low Dose Aspirin) duloxetine 60 mg capsule,delayed 60 mg PO DAILY 09/03/22 09/08/24 21:30 History release glycopyrrolate 1 mg tablet 1 mg PO TID 09/03/22 09/08/24 21:30 History clopidogrel 75 mg tablet 75 mg PO DAILY #90 tabs 05/23/24 09/02/24 Rx folic acid 1 mg tablet 1 mg PO DAILY #90 tabs 05/23/24 09/08/24 07:30 Rx topiramate 25 mg tablet 25 mg PO BID #180 tabs 05/23/24 09/08/24 21:30 Rx rosuvastatin 20 mg tablet 20 mg PO QHS #90 tabs 05/24/24 09/08/24 21:30 Rx pantoprazole 40 mg tablet,delayed 40 mg PO QDAY 06/20/24 09/08/24 07:30 History release estradiol 0.01% (0.1 mg/gram) 1 appful vaginal .as directed PRN 08/25/24 Unknown History vaginal cream vaginal dryness pregabalin 50 mg capsule 50 mg PO BID 08/25/24 09/08/24 12:00 History Allergy/AdvReac Type Severity Reaction Status Date / Time propoxyphene napsylate (From Allergy Mild Nausea/Vom/ Verified 09/09/24 06:37 Darvocet-N) Diarrhea atorvastatin (From Lipitor) Allergy Unknown unknown Verified 09/09/24 06:37 simvastatin (From Zocor) Allergy Unknown unknown Verified 09/09/24 06:37 Sulfa (Sulfonamide Allergy Unknown Headache, Verified 09/09/24 06:37 Antibiotics) nausea Family History Mother Hypertension High cholesterol Grandmother CVA (cerebral vascular accident) Other Alcoholism Cancer Surgical History History of esophagogastroduodenoscopy (EGD) History of cardiac catheterization History of knee replacement procedure of left knee History of left heart catheterization (06/13/14) History of sinus surgery History of squamous cell carcinoma excision History of colonoscopy (~2016) History of right breast biopsy History of back surgery Hx of cataract surgery H/O arthroscopic knee surgery H/O: hysterectomy Social History household members: spouse Smoking Status: Never smoker second hand exposure: No alcohol intake: never substance use type: does not use caffeine: Yes Type: coffee Number of servings: 1 what type of physical activity do you participate in: weight training and other frequency: 5-6 times per week meet/latter-day: [employer] seatbelt use: always Review of Systems (Anesthesia) ROS Narrative System reviewed and no additional complaints, except as documented.
--- NOTE | 2024-09-09 06:52 | PCM.HP.BLA ---
History and Physical Date of Admission: 09/09/24 OFFICE VISIT Date of Service: 08/12/24 MR#: [id number] Acct: [id number] Name: CASEDERRICK Rep #: [id number] : 1950 Provider: Dr. Abhi Roach MD Age/Sex: 73/F Location: [facility] Status: Signed Intake Vital Signs 07/04/2510:24 08/04/2509:58 08/13/2507:28 Height 5 ft 3 in 5 ft 3 in 5 ft 3 in Weight: 167 lb 169 lb 2 oz BMI 29.5 29.9 BP 122/64 H 130/72 H Blood Pressure Location Lt brachial Rt brachial Position Sitting Sitting Respiration 15 18 Pulse 60 71 Pulse Source Monitor Monitor Temp 98.6 F 97.3 F L Temp Source Temporal Temporal Pulse Oximetry (%) 99 96 Oxygen Delivery Method room air room air Intake Visit Reasons: DISCUSS LAP BRENNON Chief Complaint: discuss lap brennon Accompanied by: Is patient in pain?: No Allergies atorvastatin (From Lipitor) Allergy (Unknown, Verified 08/12/24 08:29) unknownlisinopril Allergy (Unknown, Verified 08/12/24 08:29) unknownsimvastatin (From Zocor) Allergy (Unknown, Verified 08/12/24 08:29) unknownSulfa (Sulfonamide Antibiotics) Allergy (Unknown, Verified 08/12/24 08:29) Headache, nauseapropoxyphene napsylate (From Darvocet-N) Allergy (Verified 08/12/24 08:29) Unknown Medications ?Medication ?Instructions ?Recorded ?Confirmed ?Type fluticasone propionate 50 50 mcg intranasal DAILY PRN PRN 01/10/22 08/12/24 History mcg/actuation nasal ALLERGIES spray,suspension (Flonase Allergy Relief) losartan 50 mg tablet 50 mg PO DAILY BP 01/10/22 08/12/24 History metoprolol succinate 100 mg 100 mg PO DAILY BP 01/10/22 08/12/24 History tablet,extended release 24 hr multivitamin 1 tab PO DAILY 07/24/22 08/12/24 History aspirin 81 mg tablet,delayed 81 mg PO DAILY 09/03/22 08/12/24 History release (Adult Low Dose Aspirin) duloxetine 60 mg capsule,delayed 60 mg PO DAILY 09/03/22 08/12/24 History release glycopyrrolate 1 mg tablet 1 mg PO TID 09/03/22 08/12/24 History clopidogrel 75 mg tablet 75 mg PO DAILY #90 tabs 05/23/24 08/12/24 Rx folic acid 1 mg tablet 1 mg PO DAILY #90 tabs 05/23/24 08/12/24 Rx pregabalin 50 mg capsule 50 mg PO DAILY #90 caps 05/23/24 08/12/24 Rx topiramate 25 mg tablet 25 mg PO BID #180 tabs 05/23/24 08/12/24 Rx rosuvastatin 20 mg tablet 20 mg PO QHS #90 tabs 05/24/24 08/12/24 Rx pantoprazole 40 mg tablet,delayed 40 mg PO QDAY 06/20/24 08/12/24 History release Have you fallen in the past year?: No PFSH Medical History Migraine headache Hypertension Epigastric pain Wears glasses Cancer Arthritis High cholesterol Gastric reflux Non-smoker Implantable loop recorder present History of echocardiogram Cardiology follow-up encounter Fatigue Abnormal mammogram of right breast Blood thinned due to long-term anticoagulant use GERD (gastroesophageal reflux disease) CVA (cerebral vascular accident) Alteration in vision Hypercholesterolemia Surgical History History of esophagogastroduodenoscopy (EGD) History of cardiac catheterization History of knee replacement procedure of left knee History of left heart catheterization (06/13/14) History of sinus surgery History of squamous cell carcinoma excision History of colonoscopy (~2016) History of right breast biopsy History of back surgery Hx of cataract surgery H/O arthroscopic knee surgery H/O: hysterectomy Family History Mother Hypertension High cholesterolGrandmother CVA (cerebral vascular accident)Other Alcoholism Cancer Social History household members: spouse Smoking Status: Never smoker second hand exposure: No alcohol intake: never substance use type: does not use caffeine: Yes Type: coffee Number of servings: 1 what type of physical activity do you participate in: weight training and other frequency: 5-6 times per week meet/gnosticism: Faith seatbelt use: always HPI HPI HPI: Patient is a 73-year-old female who makes repeat consultation related to epigastric discomfort and hiatal hernia. She was last seen in the office on 06/20/2024. She presents today with her . Together they confirm that they have met with both neurology and ophthalmology. Both of these specialties agree that patient has had no progression of her neurologic issues and that her experiences represent chronic status. For her part, Mrs. Quarles denies any new visual difficulties. She, however, reports ongoing significant difficulty with reflux. She states that in general she is taking pantoprazole 40 mg once daily but occasionally has to increase this to twice daily. Otherwise she is making frequent use of cimetidine and Tums as well. She also states that she has experienced some choking and wishes to know if this is normal?. Lastly she complains that her mouth is always raw and states she must use kid toothpaste if she finds anything else too stimulating. Her clarifies that she just had a tooth extraction 3 weeks ago and is still dealing with the acute discomfort. Below is recapitulated from patient's prior visit for ease review: Patient is a 73-year-old female who makes repeat consultation related to epigastric discomfort. She was last seen in the office on 05/02/2024 but in the interval since then and now she underwent EGD and colonoscopy with me on 05/18/2024. She presents today with her to review the results of this workup and some interval manometry and barium swallow testing that was ordered. She initially denies any significant health updates but comments about how she had a particularly rough night last evening from her reflux disease. She concluded that it was related to the consumption of a [place] peppermint milagro. When asked to comment on a recent brain MRI, patient and her clarifies that neurology simply had wanted to see if there are any meaningful changes since patient's post CVA imaging couple of years ago. When I pressed for the indication patient admitted that she has noted some visual changes recently. By this she clarifies that has been over 3 months ago since she first noticed some cloudiness that disappeared but has noted some persistent double vision. She acknowledges that visual changes were the primary difficulty she experienced with her initial stroke. She adds that she is due to see her ear nose throat surgeon next week but she is eager to also get in with ophthalmology as that is where she her stroke was first identified (she clarifies the coin teller was with the [facility]. ROS General General: No weight change, appetite, fatigue, colon cancer, breast cancer or weakness HEENT HEENT: No difficulty swallowing, eye injury, eye surgery, swollen glands or hoarseness Endo Endocrine: No thyroid disease, diabetes mellitus, thyroid cancer, Hair loss, heat intolerance or cold intolerance Skin Skin: No rash or changing moles Breast Breast: No left breast lump, right breast lump, nipple discharge, breast pain, abnormal mammogram, abnormal US or breast enlargement Musc Musculoskeletal: Yes arthritis; No back problems, rheumatoid arthritis, gout or joint pain Cardio Cardiovascular: No murmur, pacemaker, heart disease, atrial fibrillation, high blood pressure, heart attack, heart stent, palpitations, shortness of breath with exertion or chest pain Psych Psychiatric: No depression, anxiety or hearing voices Resp Respiratory: No shortness of breath, No sleep apnea, No cough, No COPD, No asthma, No emphysema and No wheezing Gastro Gastrointestinal: No abdominal pain, No nausea or vomiting, No diarrhea, No constipation, No blood in stool, Yes acid reflux, No hemorrhoids, No ulcers, No gallbladder problem and No black,tarry stools Guillermo Hematologic: No blood thinners, No blood disorders, No bleeding, No anemia and No blood clots Neuro Neurologic: No system reviewed and no additional complaints, except as documented, No as per HPI, No abnormal gait, No abnormal hearing, No abnormal movements, No abnormal speech, No behavioral changes, No burning sensations, No confusion, No convulsions, No disequilibrium, No dizziness, No localized weakness, No frequent falls, No headache(s), No lack of coordination, No loss of vision, No memory loss, Yes numbness, No other visual disturbances, No radicular pain, No restless legs, No sensory deficit, No syncope, Yes tingling, No tremor(s), No weakness and No other Exam Const General: cooperative, comfortable and no acute distress HENMT Other: No evidence of thrush on brief oral exam inspection Resp Effort & Inspection: normal respiratory effort GI Other: No visible herniation, nondistended, soft, nontender palpation x 4 quadrants Assessment and Plan Assessment and Plan (1) GERD (gastroesophageal reflux disease): Status: Acute Comment: Patient with refractory reflux disease despite now transitioning to pantoprazole. She describes symptoms occurring with a daily frequency. She is additionally using Tums and famotidine. She has identified food triggers, but on apologetic lately states that she still likes these foods and simply tries to minimize their effect by avoiding them closer to bedtime. We had a rather lengthy conversation around reflux disease and pathologic states that lead to them. Specifically, addressed the scenario of a hiatal hernia and used a picture diagrams to facilitate this conversation. Regarding procedure plans, I shared with her the opportunity could be taken to perform a pH probe placement, however, she seems very reluctant to consider any additional surgery and simply is most interested in being screened for Basilio's esophagus. Therefore we will plan for diagnostic EGD alone with biopsy. Patient is on Plavix and will need to have this held for 7 days preprocedure to minimize her bleeding risk with these biopsies. Update 10/20/2023: Patient is a 73-year-old female who remains stable for her symptoms and overall describes relief with PPI medication. She freely confesses that she continues to engage in habits that provoke her symptoms, but is unwilling to change some of them due to her enjoyment of those things. However, when we discuss possibility of fundoplication I used hand drawings to illustrate the different anatomical states and described potential inability to either belch or vomit. Upon hearing this both patient and her immediately displayed a lack of acceptance with any further proposition of surgical intervention. Patient did ask whether or not she would even have to go through with additional EGD exams. Given that patient has no evidence of Basilio's esophagus and only mild gastritis I advised her that there would be no indication based on present data to repeat the endoscopy. And since she declines further discussion around surgery I will not proceed with any additional workup of her hiatal hernia at this time. I have advised her to simply take pantoprazole 40 mg daily and then supplement with either Tums or famotidine as needed for additional symptoms. Of also encouraged her to take proactive steps with limiting some of her habits that are likely provoking her symptoms. Update 06/21/2023: I reviewed with patient and her the results of her recent manometry testing and barium swallow. Manometry showed normal LES function but slightly increased UES relaxation tone and some fragmented swallows. Barium swallow demonstrated evidence of a small sliding hiatal hernia with gastroesophageal reflux as well as some tertiary contractions. With the fragmented swallows and the tertiary retractions?as well as patient's age and other neurologic concerns I shared my recommendation would be to proceed with a laparoscopic partial fundoplication in addition to hiatal hernia reduction/repair. Relevant anatomy and the rationale for this was reviewed with patient. However, the majority of our visit actually covered some recent neurologic symptoms that patient is undergoing a workup for to exclude the possibility of further clinically significant neurologic events given her history of CVA. Fortunately, recent brain MRI did not show any new infarcts, but patient has not followed up with neurology since acquisition of the study. Further, she has had no formal evaluation of her vision from either optometry or ophthalmology. She is due for an optometry evaluation next week. Given these new symptoms and the incompleteness of the evaluation I frankly shared with patient and her that I was uncomfortable proceeding with a potentially 2 to 3-hour general anesthetic where she may be at risk for intermittent hypotension without assurance that she is optimized or safe from a neurologic standpoint. Patient and her expressed appreciation for this consideration and we will plan to follow-up after this evaluation is completed. I will look to discuss further with neurology. Update 08/12/2024: Patient has made outpatient visits with both neurology and ophthalmology who have provided reassurance that she is not experiencing any new neurologic symptoms and requires no further workup. She continues to be plagued by frequent reflux events despite compliance with scheduled PPI medication and as needed [id number] antacids. Additionally she complains of some choking which I suspect may be related to some esophagitis or simply active aspiration as she reports the taste of acid in her mouth. With the significant symptoms she reports I believe it is now time to proceed with scheduling for laparoscopic hiatal hernia repair with toupee fundoplication. We reviewed the operation in detail as well as the expected postoperative recovery?including dietary restrictions. All questions were answered from patient and her . They are interested in moving forward to soon as possible. We will need to obtain clearance for hold of patient's antiplatelet therapy. Plan: ? Laparoscopic hiatal hernia repair with toupee fundoplication. Hold Plavix x 5 days preop. Postoperatively patient advised she will require at least 1 night overnight observation. (2) Hiatal hernia with GERD: Status: Chronic Comment: Patient is 73-year-old female that is severely symptomatic from a hiatal hernia with GERD symptoms despite maximal medical therapy with PPI, H2 ana, and Tums. Admittedly, some of her lifestyle choices precipitate the symptoms but patient states they are a big part of her enjoyment in life and she is unwilling to modify them. This previously represented part of her interest in proceeding with antireflux surgery but when she was advised that she may not be able to vomit or belch normally thereafter our discussion fell off. Patient presents today because of persistent symptoms which she finds intolerable. I did review our older conversations and confirmed that she now felt differently about a possible surgery. Even still during the course of our conversation she raised objections about the time away from activity and I reminded her that she would need to allow herself ample time for recovery to ensure an optimal outcome. She begrudgingly agreed and her also tried to provide perspective. Since it has been 9 months since her last scope and she is reporting some progression of symptoms I have recommended repeat EGD. After she shared that she had a retained hemostatic clip that is disqualifying her from an MRI the need for this study is furthered and I would plan to remove that clip at the time of repeat study. Additionally, I have informed her that we would need to proceed for upper GI with esophagram and esophageal manometry. The need for both of these exams was explained and patient agreed to proceed as recommended. Ultimately, shared my belief that barring any surprises with the studies I believe she would be an excellent candidate for hiatal hernia reduction and partial fundoplication. Plan: Laparoscopic hiatal hernia repair with toupee fundoplication anticipated I have examined the patient and the H&P has been reviewed. There are no clinical changes since date of exam. Patient confirms she has held her Plavix since 09/02/2024. She also reports a stable state of health and no interval changes. She does remark that she has slightly bloated today but attributes this to drinking some Sprite yesterday. Her abdominal exam is benign apart from some very mild distention. Several lingering questions were addressed and I reiterated the expectation for postop observational stay and liquid diet. Consents were confirmed. Proceed to the operating room for laparoscopic hiatal hernia repair with toupet fundoplication.
[2024-09-09] MEDS: Cefazolin 2 GM in 0.9% Normal Saline (100mL Bag) 100 ML IV (07:30)
--- NOTE | 2024-09-09 09:18 | PCM.OPRPT ---
Operative Report (Standard) Operative Information Date of Procedure: 09/09/24 Pre-Operative Diagnosis: 1. Gastroesophageal reflux disease 2. Hiatal hernia Post-Operative Diagnosis: 1. Gastroesophageal reflux disease 2. Hiatal hernia 3. 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 Aborted laparoscopic hiatal hernia repair 2. Diagnostic laparoscopy log pond worker: Yes Submarine Operator: Thompson Deluca Tasks completed by bankruptcy legal assistant: Opening, Trocar and Retracting Additional assistant tennis coach?: Yes Additional Regional Ehs Manager #2: Gama Fitzpatrick Tasks completed by assistant tennis coach #2: Closing and Other (laparoscopic camera operation) Type of Anesthesia: General/Supplemental RN Documented Start/Stop Times: Operation Date: 09/09/24 07:30 Case Time Into Pre-Op 09/09/24 06:08 Out of Pre-Op 09/09/24 07:26 Anesthesia Start 09/09/24 07:30 Into Room 09/09/24 07:30 Procedure Start 09/09/24 08:11 Procedure End 09/09/24 09:34 Anesthesia End 09/09/24 09:41 Out of Room 09/09/24 09:41 Into Recovery 09/09/24 09:43 Out of Recovery 09/09/24 10:16 Into Phase II Recovery 09/09/24 10:17 Out of Phase II 09/09/24 12:10 Procedure Start Time: 08:11 Procedure Stop Time: 09:34 Select all DRAINS/GRAFTS/IMPLANTS that apply: None Estimated Blood Loss: 10 Specimen collected: No Description of surgery: Patient was brought to the operating room after being appropriately identified in the preoperative holding area and written consents were confirmed. She was positioned supine on the operating room table and underwent induction with general endotracheal anesthetic. She was administered preoperative antibiotics with 2 g of Ancef for surgical prophylaxis. An orogastric tube was placed by anesthesia. Legs were placed in yellowfin leg holders in lithotomy taking care to avoid pressure to the peroneal nerve. A urinary catheter was placed with sterile technique. SCDs were connected on bilateral lower extremities. Patient's abdomen was prepped and draped in usual sterile fashion. A formal timeout followed to confirm patient and the procedure. The procedure was begun with instillation of local anesthetic and Veress entry made through Koch's point in the left upper quadrant. Optiview entry followed and found no inadvertent injury from the Veress needle. Remainder of the peritoneal cavity was unremarkable to inspection so trocar placement followed with placement of a second 5 mm trocar along the anterior axillary line laterally, then a 12 mm trocar via a supraumbilical/paramedian incision followed by a right upper quadrant 5 mm trocar? all made under laparoscopic visualization. Lastly an obturator from a 5 mm trocar was used to create the tract in the epigastric abdominal wall for placement of our Betty liver retractor. Betty was positioned to elevate the left lobe of the liver and provide visualization of the hiatus. Dissection was begun by opening the pars flaccida but we quickly encountered what appeared to be rather dense fibrous bands between the phrenoesophageal ligament and the upper portion of the stomach as well as the left lobe of the liver. The most inferior aspect of this band appeared to contain a vessel and some additional dissection superior to this structure indeed confirmed pulsatility. 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 We explored the feasibility of performing a wrap superior to this vessel and the cruraplasty inferior to the vessel, however, the latter seem precluded by limited visibility with the contour of the stomach altered by the aberrant vessel and both the inferior vena cava and the caudate lobe of the liver obscured a clear view to where the crura would meet posteriorly. Therefore, we concluded that the only way the operation could be completed successfully would be to divide the aberrant artery but this seemed to carry risk of malperfusion to both the liver and the proximal stomach so after some discussion the procedure was aborted. The 12 mm supraumbilical/paramedian incision was closed under direct laparoscopic visualization using a #1 PDS and a Dony Bhandari suture passer. The Betty retractor was taken down under direct laparoscopic visualization and then removed. The remaining 5 mm ports were closed at the skin using subcuticular technique with 4-0 Monocryl. Santos catheter was removed and patient was extubated along with removal of the orogastric tube. She was taken in stable condition to PACU for ongoing recovery from anesthetic. Surgical Findings: ? Probable replaced right hepatic artery arising from the lesser gastroepiploic coursing along the superior aspect of the pars flaccida and limiting mobility of the gastric cardia Complications Complications: No Admit VTE Documentation VTE Mechan Device Prophylaxis: SCD's
[2024-09-09] MEDS: Bupivacaine Mpf 0.5% 30 ML VIAL (09:25)
--- NOTE | 2024-09-09 09:34 | DCINST_ITS ---
Discharge Instructions Diet Discharge Diet: No restrictions Activity Discharge Activity: May Not Drive (No driving while using narcotic pain medication) and May Shower (Postoperative day 1) May shower in (days): 2 Ice area for (Minutes): 20 Lifting Restrictions: No lifting greater than 15 pounds for 2 weeks after surgery Dressing / Incision Call your doctor if your incision/area has: Continuous Slow Oozing, Increased Pain/ Swelling, Increased Redness, Foul Smelling Discharge and Swelling at the incision site Call your doctor if you observe: Fever of 101 or Higher Remove Dressing in: 2 days (Please leave Steri-Strips intact until they fall off spontaneously or are taken off at your follow-up visit) Cleanse incision/area with: Soap & Water Follow Up Care Please Follow Up With: Abhi Roach MD When: 7-10days postop Test Results: Test results from this visit will be discussed in further detail at your follow- up appointment, if applicable. Discharge Plan Admission Primary Reason for Your Visit: Attempted laparoscopic hiatal hernia repair Attending Provider: Abhi Roach Primary Care Provider: Stefani Ball Consulting Providers: Reynaldo Ely Instructions Additional Instructions / Restrictions: Please wait to resume Plavix for 48 hours post procedure Print Language: Brazilian Discharge Orders/Prescriptions Prescriptions: New tramadol 50 mg tablet 50 mg PO Q6H PRN (Reason: pain) 3 Days Qty: 10 0RF Continued multivitamin Tablet 1 tab PO DAILY duloxetine 60 mg capsule,delayed release(DR/EC) 60 mg PO DAILY aspirin [Adult Low Dose Aspirin] 81 mg tablet,delayed release (DR/EC) 81 mg PO DAILY glycopyrrolate 1 mg tablet 1 mg PO TID clopidogrel 75 mg tablet 75 mg PO DAILY Qty: 90 3RF folic acid 1 mg tablet 1 mg PO DAILY Qty: 90 3RF topiramate 25 mg tablet 25 mg PO BID Qty: 180 3RF rosuvastatin 20 mg tablet 20 mg PO QHS Qty: 90 1RF pantoprazole 40 mg tablet,delayed release (DR/EC) 40 mg PO QDAY losartan 50 mg tablet 50 mg PO DAILY metoprolol succinate 100 mg tablet extended release 24 hr 100 mg PO DAILY fluticasone propionate [Flonase Allergy Relief] 50 mcg/actuation [place],Suspension 50 mcg INTRANASAL DAILY PRN PRN (Reason: ALLERGIES) estradiol 0.01 % (0.1 mg/gram) cream 1 appful vaginal .as directed PRN (Reason: vaginal dryness) pregabalin 50 mg capsule 50 mg PO BID Referrals / Follow Up: Stefani Ball MD [Primary Care Provider] - Disposition Disposition (needs filled in before D/C Order can be placed): Home, Self Care
--- NOTE | 2024-09-09 09:51 | PCM.POST.ANE ---
Anesthesia: Postop Eval I Current Vital Signs Temperature: 98.3 F Pulse Rate: 82 Blood Pressure: 164/70 Respiratory Rate: 16 Pulse Ox: 96 Oxygen Delivery Method: Nasal Cannula Oxygen Flow Rate (L/min): 2 Assessment Airway patent: Yes Spontaneous unlabored respirations: Yes Mental status: Awake and Calm nausea: No Vomiting: No Anesthesia Complication: No Fluid Hydration Crystalloid volume administer (ml): 1,000 Total IV fluid infused: 1,000 Progress Note Anesthesia document: Postop Eval 1 completed: Yes
--- NOTE | 2024-09-09 16:39 | POSTOPAN2_ITS ---
Anesthesia Postop Eval I Sum Postop Eval Completion status Anesthesia document: Postop Eval 1 completed: Yes Anesthesia Postop Eval I Summary Anesthesia Postop Eval I Summary: Anesthesia Postop Eval I: Assessment Summary Airway patent Yes 09/09/24 09:52 THREADING MACHINE TENDER.GDOTT Spontaneous unlabored Yes 09/09/24 09:52 THREADING MACHINE TENDER.GDOTT respirations Mental status Awake,Calm 09/09/24 09:52 THREADING MACHINE TENDER.GDOTT nausea No 09/09/24 09:52 THREADING MACHINE TENDER.GDOTT Vomiting No 09/09/24 09:52 THREADING MACHINE TENDER.GDOTT Anesthesia Postop Eval I: Fluid Summary Crystalloid volume administer 1,000 09/09/24 09:52 THREADING MACHINE TENDER.GDOTT (ml) Colloids volume administered ( ml) Blood Product volume administered (ml) Total IV fluid infused 1,000 09/09/24 09:52 THREADING MACHINE TENDER.GDOTT Anesthesia Postop Eval I: Summary Notes Anesthesia Complication No 09/09/24 09:52 THREADING MACHINE TENDER.GDOTT Anesthesia Complication Comment: Post-operative progress note Anesthesia: Postop Eval II Evaluation Mental status: Awake Pain Level: 3 nausea: No Vomiting: No
--- NOTE | 2024-09-09 16:39 | PCM.POSTANE2 ---
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.GDOTT Spontaneous unlabored Yes 09/09/24 09:52 RESISTANCE MACHINE WELDER SETTER.GDOTT respirations Mental status Awake,Calm 09/09/24 09:52 RESISTANCE MACHINE WELDER SETTER.GDOTT nausea No 09/09/24 09:52 RESISTANCE MACHINE WELDER SETTER.GDOTT Vomiting No 09/09/24 09:52 RESISTANCE MACHINE WELDER SETTER.GDOTT Anesthesia Postop Eval I: Fluid Summary Crystalloid volume administer 1,000 09/09/24 09:52 RESISTANCE MACHINE WELDER SETTER.GDOTT (ml) Colloids volume administered ( ml) Blood Product volume administered (ml) Total IV fluid infused 1,000 09/09/24 09:52 RESISTANCE MACHINE WELDER SETTER.GDOTT Anesthesia Postop Eval I: Summary Notes Anesthesia Complication No 09/09/24 09:52 RESISTANCE MACHINE WELDER SETTER.GDOTT Anesthesia Complication Comment: Post-operative progress note Anesthesia: Postop Eval II Evaluation Mental status: Awake Pain Level: 3 nausea: No Vomiting: No
== END 2024-09-09 12:10 | disposition home or self-care (01) ==
LOC: SDC 05:56 → AC 05:58
PROVIDERS: Anesthesiology; PCP Family Medicine; Referring Provider Surgery; Visit Provider Surgery
PROC: (CPT 43325; principal; 2024-09-09 07:10)
DX: K44.9 Diaphragmatic hernia without obstruction or gangrene (principal); Z90.710 Acquired absence of both cervix and uterus; K21.9 Gastro-esophageal reflux disease without esophagitis; E78.00 Pure hypercholesterolemia, unspecified; H53.9 Unspecified visual disturbance; I10 Essential (primary) hypertension
CPT/HCPCS: 49320; 00790; 36415; 80048; 85027; 93005; J2405

== ENCOUNTER → 2024-11-22 | Outpatient (CLI) | payer MEDICARE, SELFPAY ==
[2024-11-22 12:34] LABS: AST(SGOT) 18 U/L (<=31); Alanine Aminotransfer ALT/SGPT 11 U/L (<=34); Albumin, Serum 4.1 g/dL (3.4-4.8); Alkaline Phosphatase 67 U/L (35-104); Bilirubin, Direct 0.08 mg/dL (0.00-0.30); Cholesterol 153 mg/dL (<=200); Globulin 2.7 g/dL (2.2-4.2); Low Density Lipoprotein Calc. 65 mg/dL; Triglycerides 205 mg/dL; Very Low Density Lipoprotein 41 mg/dL (5-40); cholesterol:hdl ratio screen 3.24
--- OUTSIDE RECORDS SUMMARY | 2024-11-22 19:28 | XMS RPT_ITS | CCD ---
Author Organization [facility] Care Team Providers [facility] [place] Name Role Phone Danielle Espinoza Unavailable Danielle Espinoza Unavailable Dr. Stefani Ball Primary Care Provider Dr. Reynaldo Bender Emergency Provider Dr. Jonathan Cevallos Admit Provider Dr. Jonathan Cevallos Attending Provider Dr. Jonathan Cevallos Other Provider Dr. Graciela Scott Attending Provider Dr. Jakub Amanda Attending Provider Dr. Jakub Amanda Other Provider Dr. Stefani Blal Primary Care Provider Dr. Stefani Ball Referring Provider Dr. Ada Sadler Attending Provider Dr. Shiva Perkins Attending Provider Dr. Stefani Ball Primary Care Provider Dr. Stefani Ball Referring Provider Dr. Noble Gloria Attending Provider 1([facility])[phone] Gerardo Banerjee Attending Provider 1([facility])[phone] Shiva Perkins Referring Provider Dr. Stefani Ball Primary Care Provider Dr. Stefani Ball Referring Provider Dr. Noble Gloria Referring Provider Dr. Shiva Perkins Attending Provider Dr. Michele Roach Attending Provider Dr. Stefani Ball Primary Care Provider Dr. Noble Gloria Attending Provider [phone] Stefani Ball Referring Provider Dr. Shiva Perkins Referring Provider Mdadie, Dr. Shannon Other Provider Dr. Altagracia Linda Attending Provider Dr. Kimo Mir Attending Provider LIZZY ROSENTHAL, DR LUNDY Primary Care Physician Dr. Stefani Ball Primary Care Provider Dr. Stefani Ball Referring Provider [phone] Shiva Perkins Attending Provider Dr. Michele Roach Attending Provider Dr. Shiva Perkins Referring Provider Maddie, Dr. Shannon Other Provider Dr. Altagracia Linda Attending Provider [phone] Dr. Kimo Mir Attending Provider [phone] ALAN ROSENTHAL, DR ROGERIO Murry Attending Victorina Lamb MD, DR ROGERIO uMrry Attending Victorina Berger MD, DR LUNDY Consulting Jose Raul BALL MD, DR LUNDY Primary Care Jose Raul PHILLIPS MD, DR ROGERIO Murry Referring Victorina Lamb MD, DR ROGERIO Murry Attending Victorina Lamb MD, DR ROGERIO Murry Admitting Daniiab glenn HILTON SENIOR DIRECTOR FINANCE-OCCUPATIONAL THERAPIST PER DIEM, CRISTA M Consulting Dr. Stefani Baltazar Primary Care Provider Dr. Shiva Perkins Attending Provider Dr. Shiva Perkins Referring Provider Dr. Stefani Ball Referring Provider Dr. Michele Roach Attending Provider Faizan, Dr. Dickey Attending Provider Dr. Stefani Ball Primary Care Provider Faizan, Dr. Dickey Attending Provider [phone] Faizan, Dr. Dickey Referring Provider [phone] Shiva Perkins Attending Provider Dr. Shiva Perkins Referring Provider Dr. Michele Roach Attending Provider Marley, Dr. Moe Referring Provider Dr. Stefani Ball Referring Provider Marley, Dr. Moe Other Provider Dr. Stefani Ball Primary Care Provider Dr. Shiva Perkins Attending Provider Dr. Shiva Perkins Referring Provider Faizan, Dr. Dickey Attending Provider [phone] Lizzy ROSENTHAL, Dr. Stefani Alonzo Primary Care Provider Lizzy ROSENTHAL, Dr. Stefani Alonzo Referring Provider Dr. Shiva Perkins MD Attending Provider Dr. Shiva Perkins MD Referring Provider Dr. Noble Gloria MD Attending Provider Dr. Noble Gloria MD Referring Provider Dr. Michele Roach MD Attending Provider Dr. Michele Roach MD Other Provider Dr. Thompson Deluca MD Attending Provider Marley ROSENTHAL, Dr. Moe Referring Provider Lizzy ROSENTHAL, Dr. Stefani Alonzo Primary Care Provider Lizzy ROSENTHAL, Dr. Stefani Alonzo Referring Provider Marley ROSENTHAL, Dr. Moe Attending Provider Maddie ROSENTHAL, Dr. Shannon Attending Provider Maddie ROSENTHAL, Dr. Shannon Referring Provider Faizan ROSENTHAL, Dr. Dickey Attending Provider Faizan ROSENTHAL, Dr. Dickey Referring Provider April TRAILER PARK MANAGER-C, Chelsea Attending Provider April TRAILER PARK MANAGER-C, Chelsea Referring Provider Solis ROSENTHAL, Dr. Jacobs Other Provider Unavailabl e Lizzy ROSENTHAL, Dr. Stefani Alonzo Primary Care Provider Marley ROSENTHAL, Dr. Moe Attending Provider Lizzy ROSENTHAL, Dr. Stefani Alonzo Referring Provider Marley ROSENTHAL, Dr. Moe Other Provider Lizzy ROSENTHAL, Dr. Stefani Alonzo Primary Care Provider Maddie ROSENTHAL, Dr. Shannon Attending Provider Lizzy ROSENTHAL, Dr. Stefani Alonzo Referring Provider Marley ROSENTHAL, Dr. Moe Attending Provider Marley ROSENTHAL, Dr. Moe Referring Provider Lizzy ROSENTHAL, Dr. Stefani Alonzo Primary Care Provider Maddie ROSENTHAL, Dr. Shannon Attending Provider Maddie ROSENTHAL, Dr. Shannon Referring Provider Kassidy Padilla Attending Provider Lizzy ROSENTHAL, Dr. Stefani Alonzo Primary Care Provider Maddie ROSENTHAL, Dr. Shannon Attending Provider Maddie ROSENTHAL, Dr. Shannon Referring Provider Lizzy ROSENTHAL, Dr. Stefani Alonzo Primary Care Provider Lizzy ROSENTHAL, Dr. Stefani Alonzo Referring Provider Marley ROSENTHAL, Dr. Moe Attending Provider Lizzy ROSENTHAL, Dr. Stefani Alonzo Primary Care Provider Maddie ROSENTHAL, Dr. Shannon Attending Provider Maddie ROSENTHAL, Dr. Shannon Referring Provider Faizan ROSENTHAL, Dr. Dickey Attending Provider Faizan ROSENTHAL, Dr. Dickey Referring Provider Jolliff, Stefani S Primary Care Unavailable Michele Roach Attending Unavailable Jolliff, Stefani S Referring Unavailable Baddour, Shiva Attending Unavailable Baddour, Shiva Referring Unavailable Jolliff, Stefani S Primary Care Unavailable Jolliff, Stefani S Primary Care Unavailable Thompson Deluca Attending Unavailable Jolliff, Stefani S Referring Unavailable BortzMichele Attending Unavailable Jolliff, Stefani S Primary Care Unavailable Jolliff, Stefani S Referring Unavailable Faizan, [place] Referring Unavailable Faizan, Noble Attending Unavailable Jolliff, Stefani S Primary Care Unavailable Jolliff, Stefani S Primary Care Unavailable BaddourShiva Attending Unavailable Jolliff, Stefani S Referring Unavailable BaddourShiva Attending Unavailable Jolliff, Stefani S Primary Care Unavailable Jolliff, Stefani S Referring Unavailable BaddourShiva Attending Unavailable Jolliff, Stefani S Primary Care Unavailable Jolliff, Stefani S Referring Unavailable Baddour, Shiva Referring Unavailable Jolliff, Stefani S Primary Care Unavailable BaddourShiva Attending Unavailable Michele Roach Attending Unavailable Michele Roach Referring Unavailable Jolliff, Stefani S Primary Care Unavailable Michele Roach Attending Unavailable Jolliff, Stefani S Primary Care Unavailable Jolliff, Stefani S Referring Unavailable Faizan, [place] Referring Unavailable Faizan, Noble Attending Unavailable Jolliff, Stefani S Primary Care Unavailable Kassidy Varela NP Attending Unavailable Jolliff, Stefani S Referring Unavailable Jolliff, Stefani S Primary Care Unavailable BaddourShiva Attending Unavailable Jolliff, Stefani S Referring Unavailable Jolliff, Stefani S Primary Care Unavailable Michele Roach Attending Unavailable Michele Roach Consulting Unavailable Jolliff, Stefani S Primary Care Unavailable Jolliff, Stefani S Referring Unavailable Michele Roach Referring Unavailable Michele Roach Attending Unavailable Reynaldo Ely Consulting Unavailable Jolliff, Stefani S Primary Care Unavailable BorMichele rossi Consulting Unavailable Baddour, Shiva Attending Unavailable Baddour, Shiva Referring Unavailable Jolliff, Stefani S Primary Care Unavailable April TRAILER PARK MANAGER, [place] Referring Unavailable April TRAILER PARK MANAGER, [place] Attending Unavailable Jolliff, Stefani S Primary Care Unavailable Reynaldo Ely Consulting Unavailable Michele Roach Admitting Unavailable Bortz, Michele Referring Unavailable Bortz, Michele Attending Unavailable Jolliff, Stefani S Primary Care Unavailable Baddour, Shiva Attending Unavailable Baddour, Shiva Referring Unavailable Jolliff, Stefani S Primary Care Unavailable Baddour, Shiva Attending Unavailable Baddour, Shiva Referring Unavailable Jolliff, Stefani S Primary Care Unavailable Baddour, Shiva Attending Unavailable Baddour, Shiva Referring Unavailable Jolliff, Stefani S Primary Care Unavailable Bortz, Michele Referring Unavailable Faizan, [place] Attending Unavailable Jolliff, Stefani S Primary Care Unavailable Bortz, Michele Attending Unavailable Jolliff, Stefani S Primary Care Unavailable Jolliff, Stefani S Referring Unavailable Jolliff, Stefani S Primary Care Unavailable Faizan, [place] Referring Unavailable Faizan, Noble Attending Unavailable Baddour, Shiva Attending Unavailable Baddour, Shiva Referring Unavailable Jolliff, Stefani S Primary Care Unavailable Baddour, Shiva Referring Unavailable Baddour, Shiva Attending Unavailable Jolliff, Stefani S Primary Care Unavailable Bortz, Michele Attending Unavailable Jolliff, Stefani S Primary Care Unavailable Jolliff, Stefani S Referring Unavailable Jolliff, Stefani S Primary Care Unavailable Faizan, Noble Referring Unavailable Faizan, Noble Attending Unavailable Baddour, Shiva Attending Unavailable Baddour, Shiva Referring Unavailable Jolliff, Stefani S Primary Care Unavailable Baddour, Shiva Attending Unavailable Jolliff, Stefani S Primary Care Unavailable Jolliff, Stefani S Referring Unavailable Baddour, Shiva Referring Unavailable Baddour, Shiva Attending Unavailable Jolliff, Stefani S Primary Care Unavailable Baddour, Shiva Referring Unavailable Baddour, Shiva Attending Unavailable Jolliff, Stefani S Primary Care Unavailable Baddour, Shiva Attending Unavailable Baddour, Shiva Referring Unavailable Jolliff, Stefani S Primary Care Unavailable Allergies Allergy Classification Reported Allergen(s) Allergy Type Date of Onset Reaction(s) Facility (2 sources) atorvastatin Drug Allergy 5 myalgias [facility] Work Phone: [phone] (16 sources) lisinopril; Translations: [lisinopril] Drug Allergy 5 cough, unknown [facility] Work Phone: [phone] (2 sources) rosuvastatin Drug Allergy 5 mylagia [facility] Work Phone: [phone] (2 sources) simvastatin Drug Allergy 1 Muscle pain [facility] Work Phone: [phone] (2 sources) Sulfonamides (Antibiotic) drug allergy 1 Vomiting, headache [facility] Work Phone: [phone] (2 sources) DARVOCET/DARVON drug allergy 1 Nausea [facility] Work Phone: [phone] (7 sources) Acetaminophen Drug Allergy 5 Unknown [facility] (20 sources) Propoxyphene; Translations: [propoxyphene napsylate] Drug Allergy 5 Unknown, Nausea/Vom/Diar alfonzo [facility] (7 sources) rosuvastatin Drug Allergy 5 Unknown [facility] (20 sources) Sulfonamides (Antibiotic) Allergy to substance 5 Unknown, Headache, nausea [facility] (20 sources) atorvastatin Drug Allergy 3 unknown [facility] (10 sources) rosuvastatin Drug Allergy 3 unknown [facility] (20 sources) Simvastatin Drug Allergy 3 unknown [facility] (12 sources) Galzfym-Cnx-Mmy Reductase Inhibitor Allergy to substance 3 Intolerant [facility] (1 source) atorvastatin Drug Allergy 5 [facility] (1 source) Simvastatin Drug Allergy 5 [facility] (1 source) Sulfonamides (Antibiotic) Drug allergy (disorder) 5 [facility] (1 source) Lomkoib-Lnj-Lga Reductase Inhibitor Drug allergy (disorder) 4 [facility] Medications Current Medications Medication Drug Class(es) Dates Sig (Normalized) Sig (Original) acetaminophen 1000 mg oral tablet (1 source) Start: 02-18-2023 take 1 tablet by mouth once daily Tylenol Dose : 1,000 mg = 2 tab(s), Oral, TID, not to exceed 3000 mg/day, 0 Refill(s) Start Date: 02/18/23 Status: Ordered aspirin 81 mg oral tablet (20 sources) Nonsteroidal Anti-inflammatory Drug Start: 02-18-2023 End: 03-20-2023 take 1 tablet by mouth twice daily at mealtime aspirin Dose : 81 mg = 1 tab(s), Oral, BIDM, Take 81 mg aspirin twice daily with food for 4 weeks postoperatively for DVT prophylaxis., 0 Refill(s) Start Date: 02/18/23 Stop Date: 03/20/23 Status: Ordered Start: 09-03-2022 Aspirin (Adult Low Dose Aspirin) 81 mg tablet,delayed release (DR/EC) Active 81 mg PO DAILY September 03, 2022 12:00am Start: 01-10-2022 End: 07-24-2022 take 1 tablet by mouth once daily Aspirin 81 mg Tablet,Delayed Release (Dr/Ec) Discontinued 81 mg PO DAILY January 10, 2022 12:00am July 24, 2022 1:01pm [facility] [employer] Start: 06-12-2014 take 81 mg by mouth once daily Aspirin Active 81 MG PO DAILY@0800 June 12, 2014 1:00am Start: 06-06-2014 take 1 tablet by duane th once daily ASPIRIN 81 MG TABS One tablet by mouth daily ASPIRIN [id number] AYDEN PiñaC cetirizine hydrochloride 10 mg oral tablet (3 sources) Histamine-1 Receptor Antagonist Start: 12-17-2010 take 1 tablet by mouth once daily Cetirizine Hcl (Zyrtec) 10 MG tablet Active 10 MG PO DAILY June 12, 2014 1:00am docusate sodium 50 mg / sennosides, shelter 8.6 mg oral tablet (1 source) Start: 02-18-2023 End: 02-23-2023 take 1 tablet by mouth twice daily Senokot S 50 mg-8.6 mg oral tablet Dose = 2 tab(s), Oral, BID, Take until first bowel movement, then as needed, X 5 day(s), # 20 tab(s), 0 Refill(s), Pharmacy: [id number], 160, cm, 02/17/23 16:34:00 EST, Height, kg, 02/17/23 16:34:00 EST, Dosing Weight Start Date: 02/18/23 Stop Date: 02/23/23 Status: Ordered DULoxetine 60 mg delayed release oral capsule (20 sources) Serotonin and Norepinephrine Reuptake Inhibitor Start: 09-03-2022 take 1 capsule by mouth once daily Duloxetine 60 mg capsule,delayed release(DR/EC) Active 60 mg PO DAILY September 03, 2022 12:00am Start: 07-24-2022 End: 09-03-2022 take 1 capsule by mouth once daily Duloxetine 30 mg capsule,delayed release(DR/EC) Discontinued 30 mg PO DAILY July 24, 2022 12:00am September 03, 2022 11:24am Start: 01-10-2022 End: 07-24-2022 take 1 capsule by mouth once daily Duloxetine 60 mg Capsule,Delayed Release(Dr/Ec) Discontinued 60 mg PO DAILY January 10, 2022 12:00am July 24, 2022 12:59pm mental health Start: 04-22-2012 take 20 mg by mouth once daily Duloxetine Active 20 MG PO DAILY June 12, 2014 1:00am Start: 04-22-2012 take 3 tablets by mo [facility] once daily CYMBALTA 20 MG CPEP Three tablets by mouth daily DULOXETINE HCL [id number] Reshma Mccloud PA-C Start: 04-22-2012 take 1 tablet by [place] once daily CYMBALTA 30 MG CPEP One tablet by mouth daily DULOXETINE HCL [id number] Noble Gloria MD Start: 04-22-2012 take 1 tablet by duane once daily DULOXETINE HCL 60 MG CPEP One tablet by mouth daily DULOXETINE HCL [id number] Noble Gloria MD estradiol 0.1 mg/ml vaginal cream (20 sources) Estrogen Start: 08-25-2024 Estradiol 0.01 % (0.1 mg/gram) cream Active 1 NMA VAGINAL .as directed as needed for vaginal dryness August 25, 2024 12:00am Start: 01-10-2022 End: 04-22-2022 take 1 tablet by mouth once daily Estradiol 1 mg Tablet Discontinued 1 mg PO DAILY January 10, 2022 12:00am April 22, 2022 9:36am hormones Start: 02-26-2017 ESTRADIOL 1 MG TABS Take as directed ESTRADIOL [id number] Noble Gloria MD Start: 06-12-2014 Estradiol (Est race Vaginal Cream) 42.5 GM Cream.Appl Active 1 GM VAGINAL Q7D June 12, 2014 1:00am Start: 04-22-2012 End: 10-12-2014 ESTRACE 0.1 MG/GM CREA Take as directed ESTRADIOL [id number] Noble Gloria MD famotidine 20 mg oral tablet (20 sources) Histamine-2 Receptor Antagonist Start: 10-04-2024 take 1 tablet by mouth once daily Famotidine 20 mg tablet Active 20 mg PO daily October 04, 2024 12:00am Start: 09-03-2022 take 20 mg by mouth once daily Famotidine Active 20 MG PO DAILY September 03, 2022 12:00am Start: 04-22-2022 End: 07-24-2022 take 1 tablet by mouth once daily as needed Famotidine 20 mg tablet Discontinued 20 mg PO DAILY as needed April 22, 2022 1:00am July 24, 2022 1:00pm ferrous sulfate 325 mg oral tablet (1 source) Start: 02-18-2023 End: 03-11-2023 ferrous sulfate 325 mg (65 mg elemental iron) oral tablet Dose : 325 mg = 1 tab(s), Oral, BID, # 42 tab(s), 0 Refill(s), Pharmacy: [id number], 160, cm, 02/17/23 16:34:00 EST, Height, kg, 02/17/23 16:34:00 EST, Dosing Weight Start Date: 02/18/23 Stop Date: 03/11/23 Status: Ordered fluorouracil 50 mg/ml topical cream (20 sources) Nucleoside Metabolic Inhibitor Start: 01-29-2023 fluorouracil 5% topical cream Apply 1 aamir, Topical, BID, PRN Rash, 0 Refill(s) Start Date: 01/29/23 Status: Ordered Start: 01-10-2022 End: 04-22-2022 Fluorouracil 5 % cream Disco ntinued 1 NMA TOPICAL DAILY January 10, 2022 12:00am April 22, 2022 9:39am CANCER fluticasone propionate 0.05 mg/actuat metered dose nasal spray (20 sources) Corticosteroid Start: 01-10-2022 Fluticasone Propionate (Flonase Allergy Relief) 50 mcg/actuation Lorane,Suspension Active 50 ug INTRANASAL DAILY NEEDED as needed for ALLERGIES January 10, 2022 12:00am glycopyrrolate 1 mg oral tablet (20 sources) Start: 09-03-2022 take 1 tablet by mouth three times daily Glycopyrrolate 1 mg tablet Active 1 mg PO THREE TIMES A DAY September 03, 2022 12:00am Start: 01-10-2022 End: 07-24-2022 take 1 tablet by mouth three times daily Glycopyrrolate 1 mg tablet Discontinued 1 mg PO THREE TIMES A DAY April 22, 2022 9:38am July 24, 2022 1:01pm STOMACH Start: 01-10-2022 End: 04-22-2022 take 1 tablet by mouth once daily Glycopyrrolate 1 mg tablet Discontinued 2 mg PO DAILY January 10, 2022 12:00am April 22, 2022 9:38am STOMACH Start: 01-10-2022 End: 04-22-2022 take 2 mg by mouth once daily Glycopyrrolate Discontin ued 2 MG PO DAILY January 10, 2022 12:00am April 22, 2022 9:38am losartan potassium 50 mg oral tablet (20 sources) Angiotensin 2 Receptor Ana Start: 01-10-2022 take 1 tablet by mouth once daily Losartan 50 mg tablet Active 50 mg PO DAILY January 10, 2022 12:00am BP Start: 02-07-2015 take 1 tablet by duane th once daily COZAAR 50 MG TABS One tablet by mouth daily LOSARTAN POTASSIUM [id number] Neal Matute NP Start: 06-26-2014 End: 10-12-2014 take 1 tablet by mouth once daily COZAAR 50 MG TABS One tablet by mouth daily LOSARTAN POTASSIUM [id number] Neal Matute NP metoprolol tartrate 100 mg oral tablet (20 sources) beta-Adrenergic Ana Start: 01-29-2023 Metopr olol Succinate ER 100 mg oral TABLET extended release Dose : 100 mg = 1 tab(s), Oral, qDay, # 30 tab(s), 0 Refill(s) Start Date: 01/29/23 Status: Ordered Start: 01-10-2022 take 1 tablet by duane th once daily Metoprolol Succinate 100 mg tablet extended release 24 hr Active 100 mg PO DAILY January 10, 2022 12:00am BP Start: 06-06-2014 take 50 mg by mouth once daily Metoprolol Succinate Active 50 MG PO DAILY June 12, 2014 1:00am Start: 06-06-2014 take 1 tablet by duane th once daily METOPROLOL SUCCINATE ER 100 MG [id number] One tablet by mouth daily METOPROLOL SUCCINATE [id number] Neal Matute TRAILER PARK MANAGER Multivitamin preparation (15 sources) Start: 01-29-2023 take 1 tablet by mouth once daily Multivitamin Dose = 1 tab(s), Oral, Daily, 0 Refill(s) Start Date: 01/29/23 Status: Ordered Start: 07-24-2022 take 1 tablet by duane th once daily Multivitamin Active 1 TABLET PO DAILY July 23, 2022 11:00pm Start: 07-24-2022 take 1 tablet by duane th once daily Multivitamin Active 1 TABLET PO DAILY July 24, 2022 12:00am Multivitamin tablet (10 sources) Start: 07-24-2022 Multivitamin t ablet Active 1 {tbl} PO DAILY July 24, 2022 12:00am omeprazole 20 mg delayed release oral capsule (7 sources) Proton Pump Inhibitor Start: 12-17-2010 take 20 mg by mouth once daily Omeprazole Active 20 MG PO DAILY June 12, 2014 1:00am Start: 12-17-2010 End: 01-10-2016 take 1 tablet by mouth once daily PRILOSEC 40 MG CPDR One tablet by mouth daily OMEPRAZOLE [id number] Noble Gloria MD oxyCODONE hydrochloride 5 mg oral tablet (1 source) Opioid Agonist Start: 02-18-2023 End: 02-25-2023 take 1-2 tablets by mouth every four hours as needed for pain oxyCODONE 5 mg oral tablet ( IMMEDIATE release ) See Instructions, PRN as needed for pain, 1-2 tab(s) Oral q4h, # 42 tab(s), 0 Refill(s), 02/25/23 8:06:00 AM EST, Pharmacy: [id number], Status post total left knee replacement, 160, cm, 02/17/23 16:34:00 EST, Height, 78.4, kg, 02/17/23 16:34:00 EST, Dosing Weight Start Date: 02/18/23 Stop Date: 02/25/23 Status: Ordered pantoprazole 40 mg delayed release oral tablet (20 sources) Proton Pump Inhibitor Start: 06-20-2024 End: 09-20-2024 take 1 tablet by mouth once daily Pantoprazole 40 mg tablet,delayed release (DR/EC) Active 40 mg PO daily September 20, 2024 10:26am December 18, 2024 12:00am Start: 12-18-2022 End: 08-21-2023 take 1 tablet by mouth once daily Pantoprazole 40 mg tablet,delayed release (DR/EC) Discontinued 40 mg PO DAILY July 22, 2023 12:00am August 20, 2023 12:00am August 21, 2023 12:06am Gastroesophageal reflux disease Gastro-esophageal reflux disease without esophagitis Take one tablet by mouth daily Pedi Multivit 17-Iron Fumarate (Flintstones Plus Iron) 15 mg iron Tablet,Chewable (1 source) Start: 01-10-2022 take 1 tablet by mouth once daily Pedi Multivit 17-Iron Fumarate (Flintstones Plus Iron) 15 mg iron Tablet,Chewable Active 1 TABLET PO DAILY January 10, 2022 12:00am pregabalin 50 mg oral capsule (20 sources) Start: 08-25-2024 End: 10-27-2024 take 1 capsule by mouth twice daily Pregabalin 50 mg capsule Active 50 mg PO TWICE A DAY 180 October 27, 2024 1:05pm Start: 03-01-2024 End: 08-25-2024 take 1 capsule by mouth once daily Pregabalin 50 mg capsule Discontinued 50 mg PO DAILY May 23, 2024 12:22pm August 25, 2024 2:22pm Polyneuropathy Polyneuropathy, unspecified Start: 04-22-2022 End: 03-01-2024 take 1 capsule by mouth twice daily Pregabalin 75 mg capsule Discontinued 75 mg PO TWICE A DAY April 22, 2022 9:36am March 01, 2024 12:07pm PAIN Start: 06-12-2014 End: 04-22-2022 take 1 capsule by mouth three times daily Pregabalin 75 MG capsule Discontinued 75 mg PO THREE TIMES A DAY June 12, 2014 1:00am April 22, 2022 9:44am PAIN Start: 06-12-2014 take 75 mg by mouth twice daily Pregabalin Active 75 MG PO TWICE A DAY June 12, 2014 1:00am Start: 04-22-2012 take 1 tablet by [place] once daily LYRICA 75 MG CAPS One tablet by mouth daily PREGABALIN [id number] Noble Gloria MD Start: 04-22-2012 take 2 tablets by mo [facility] twice daily LYRICA 75 MG CAPS Two tablets by mouth twice daily PREGABALIN [id number] Noble Gloria MD Start: 04-24-2011 take 1 tablet by duane twice daily LYRICA 300 MG CAPS One tablet by mouth twice daily PREGABALIN [id number] Dayan Rubio RN Prevagen (11 sources) Start: 01-10-2022 take 20 mg by mouth once daily Prevagen Active 20 MG SL/PO DAILY January 10, 2022 12:00am topiramate 25 mg oral tablet (20 sources) Start: 03-01-2024 End: 05-23-2024 take 1 tablet by mouth twice daily Topiramate 25 mg tablet Active 25 mg PO TWICE A DAY 180 May 23, 2024 12:20pm vitamin B12 (3 sources) Vitamin B12 Start: 01-29-2023 take 1 dose by mouth every month Vitamin B12 Dose : 1,000 mcg =, Oral, qmonth, 0 Refill(s) Start Date: 01/29/23 Status: Ordered Completed/Discontinued Medications Medication Drug Class(es) Dates Sig (Normalized) Sig (Original) [id number] actuat albuterol 0.09 mg/actuat metered dose inhaler (20 sources) beta2-Adrenergic Agonist Start: 07-24-2022 End: 09-03-2022 Albuterol Sulfate 90 mcg/actuation HFA aerosol inhaler Discontinued 2 NMA INHALATION Q4H as needed July 24, 2022 12:00am September 03, 2022 11:28am Start: 07-24-2022 End: 09-03-2022 take 1 puff(s) by inhalation every four hours Albuterol Sulfate Discontinued 2 PUFF INHALATION Q4H July 24, 2022 12:00am September 03, 2022 11:28am atorvastatin 10 mg oral tablet (14 sources) HMG-CoA Reductase Inhibitor Start: 06-13-2014 End: 06-26-2014 take 1 tablet by mouth once daily LIPITOR 10 MG TABS One tablet by mouth daily ATORVASTATIN CALCIUM [id number] Reshma Mccloud PA-C Start: 11-03-2011 End: 06-06-2014 take 1 tablet by mouth once daily LIPITOR 20 MG TABS One tablet by mouth daily ATORVASTATIN CALCIUM [id number] Noble Gloria MD biotin 1 mg oral tablet (20 sources) Start: 06-12-2014 End: 04-22-2022 take 2 tablets by mouth once daily Biotin 1 MG tablet Discontinued 2 mg PO DAILY June 12, 2014 1:00am April 22, 2022 9:40am SUPPLEMENT Start: 06-12-2014 End: 04-22-2022 take 2 mg by mouth once daily Biotin Discontinued 2 MG PO DAILY June 12, 2014 1:00am April 22, 2022 9:40am Start: 05-13-2013 take 1 tablet by [facility] th once daily BIOTIN FORTE TABS One tablet by mouth daily BIOTIN TABS [id number] Noble Gloria MD Biotin-Folic Acid-B Comp C (12 sources) Start: 07-24-2022 End: 09-03-2022 take 1 tablet by mouth once daily Biotin-Folic Acid-B Comp C Discontinued 1 TABLET PO DAILY July 23, 2022 11:00pm September 03, 2022 10:27am Start: 07-24-2022 End: 09-03-2022 take 1 tablet by mouth once daily Biotin-Folic Acid-B Comp C Discontinued 1 TABLET PO DAILY July 24, 2022 12:00am September 03, 2022 11:27am Start: 07-24-2022 take 1 tablet by [facility] once daily Biotin-Folic Acid-B Comp C Active 1 TABLET PO DAILY July 24, 2022 12:00am Biotin-Folic Acid-B Comp C 5-800 mg-mcg tablet (10 sources) Start: 07-24-2022 End: 09-03-2022 Biotin-Folic Acid-B Comp C 5-800 mg-mcg tablet Discontinued 1 {tbl} PO DAILY July 24, 2022 12:00am September 03, 2022 11:27am clopidogrel 75 mg oral tablet (20 sources) [id number] Platelet Inhibitor Start: 07-24-2022 End: 10-27-2024 take 1 tablet by mouth once daily Clopidogrel 75 mg tablet Discontinued 75 mg PO DAILY 90 August 11, 2022 5:30pm November 07, 2022 7:22pm Start: 01-11-2022 End: 07-07-2022 take 1 tablet by mouth once daily Clopidogrel (Plavix) 75 mg tablet Discontinued 75 mg PO DAILY 30 January 11, 2022 12:00am July 07, 2022 9:44pm codeine phosphate 2 mg/ml / guaiFENesin 20 mg/ml oral solution (20 sources) Opioid Agonist Start: 07-24-2022 End: 09-03-2022 take 1 mL by mouth every four hours as needed Codeine-Guaifenesin 10-100 mg/5 mL liquid Discontinued 10 mL PO Q4H as needed July 24, 2022 12:00am September 03, 2022 11:28am Start: 07-24-2022 End: 09-03-2022 take 1 mL by mouth every four hours Codeine-Guaifenesin Discontinued 10 ML PO Q4H July 24, 2022 12:00am September 03, 2022 11:28am COENZYME Q10 (4 sources) Start: 12-17-2010 take 1 tablet by [facility]ane th once daily CO Q-10 100 MG CAPS One tablet by mouth daily COENZYME Q10 [id number] Caitlyn Mendez Start: 12-17-2010 End: 06-06-2014 take 1 tablet by mouth once daily CO Q-10 100 MG CAPS One tablet by mouth daily COENZYME Q10 [id number] Reshma Mccloud PA-C diclofenac sodium 0.01 mg/mg topical gel (4 sources) Nonsteroidal Anti-inflammatory Drug Start: 06-13-2014 End: 01-10-2016 VOLTAREN 1 % GEL apply topically as directed DICLOFENAC SODIUM [id number] Noble Gloria MD Emollient Combination No.61 (Coconut Oil Cream) cream (20 sources) Start: 07-24-2022 End: 09-03-2022 Emollient Combination No.61 (Coconut Oil Cream) cream Discontinued 1 NMA TOPICAL TWICE A DAY July 24, 2022 12:00am September 03, 2022 11:27am Start: 07-24-2022 End: 09-03-2022 Emollient Combination No.61 (Coconut Oil Cream) cream Discontinued 1 APPLIC TOPICAL TWICE A DAY July 23, 2022 11:00pm September 03, 2022 10:27am Start: 07-24-2022 End: 09-03-2022 Emollient Combination No.61 (Coconut Oil Cream) cream Discontinued 1 APPLIC TOPICAL TWICE A DAY July 24, 2022 12:00am September 03, 2022 11:27am Start: 07-24-2022 Emollient Comb ination No.61 (Coconut Oil Cream) cream Active 1 APPLIC TOPICAL TWICE A DAY July 24, 2022 12:00am esomeprazole 40 mg delayed release oral capsule (20 sources) Proton Pump Inhibitor Start: 01-10-2022 End: 12-18-2022 take 1 capsule by mouth once daily Esomeprazole Magnesium 40 mg capsule,delayed release(DR/EC) Discontinued 40 mg PO DAILY January 10, 2022 12:00am December 18, 2022 2:27pm GERD Start: 12-17-2010 take 1 tablet by [facility]ane [facility] once daily NEXIUM 40 MG CPDR One tablet by mouth daily ESOMEPRAZOLE MAGNESIUM [id number] Noble Gloria MD folic acid 1 mg oral tablet (20 sources) Start: 01-12-2023 End: 05-23-2024 take 1 tablet by mouth once daily Folic Acid 1 mg tablet Discontinued 1 mg PO DAILY 90 March 01, 2024 12:06pm May 23, 2024 12:22pm Start: 02-26-2017 take 1 tablet by [facility] once daily FOLIC ACID 1 MG TABS One tablet by mouth daily FOLIC ACID [id number] Noble Gloria MD gabapentin 100 mg oral capsule (4 sources) Anti-epileptic Agent Start: 12-17-2010 End: 04-24-2011 take 3 tablets by mouth twice daily GABAPENTIN 100 MG CAPS Three tablets by mouth twice a day GABAPENTIN [id number] Caitlyn Mendez lisinopril 10 mg oral tablet (4 sources) Angiotensin Converting Enzyme Inhibitor Start: 06-13-2014 End: 06-26-2014 take 1 tablet by mouth once daily LISINOPRIL 10 MG TABS One tablet by mouth daily LISINOPRIL [id number] Noble Gloria MD meloxicam 15 mg oral tablet (20 sources) Nonsteroidal Anti-inflammatory Drug Start: 09-03-2022 End: 02-19-2023 take 1 tablet by mouth once daily Meloxicam 15 mg tablet Discontinued 15 mg PO DAILY September 03, 2022 12:00am February 19, 2023 11:23pm Start: 07-07-2022 End: 07-24-2022 take 1 tablet by mouth once daily Meloxicam 15 mg tablet Discontinued 15 mg PO DAILY July 07, 2022 12:00am July 24, 2022 1:01pm methylTESTOSTERone (4 sources) Androgen Start: 01-10-2016 End: 02-26-2017 METHYLTESTOSTERONE CAPS tabl et daily METHYLTESTOSTERONE CAPS [id number] Noble Gloria MD Start: 01-10-2016 METHYLTESTOSTE DANNIELLE CAPS tablet daily METHYLTESTOSTERONE CAPS [id number] Noble Gloria MD Pedi Multivit 17-Iron Fumarate (15 sources) Start: 01-10-2022 End: 04-22-2022 take 1 tablet by mouth once daily Pedi Multivit 17-Iron Fumarate Discontinued 1 TABLET PO DAILY January 09, 2022 11:00pm April 22, 2022 8:39am Start: 01-10-2022 End: 04-22-2022 take 1 tablet by mouth once daily Pedi Multivit 17-Iron Fumarate Discontinued 1 TABLET PO DAILY January 10, 2022 12:00am April 22, 2022 9:39am Start: 01-10-2022 take 1 tablet by [facility] once daily Pedi Multivit 17-Iron Fumarate Active 1 TABLET PO DAILY January 10, 2022 12:00am Pedi Multivit 17-Iron Fumara te 15 mg iron Tablet,Chewable (10 sources) Start: 01-10-2022 End: 04-22-2022 Pedi Multivit 17-Iron Fumara te 15 mg iron Tablet,Chewable Discontinued 1 {tbl} PO DAILY January 10, 2022 12:00am April 22, 2022 9:39am SUPPLEMENT Start: 01-10-2022 End: 04-22-2022 Pedi Multivit 17-Iron Fumara te 15 mg iron Tablet,Chewable Discontinued 1 {tbl} PO DAILY January 10, 2022 12:00am April 22, 2022 9:39am rosuvastatin calcium 20 mg oral tablet (20 sources) HMG-CoA Reductase Inhibitor Start: 09-03-2022 End: 10-27-2024 take 1 tablet by mouth at bedtime Rosuvastatin 20 mg tablet Discontinued 20 mg PO AT BEDTIME May 16, 2024 1:00am May 24, 2024 12:43pm Start: 07-07-2022 End: 08-25-2022 take 1 tablet by mouth once daily Rosuvastatin 40 mg tablet Discontinued 40 mg PO DAILY 90 1 July 07, 2022 12:00am August 25, 2022 4:09pm Start: 01-10-2022 End: 07-07-2022 take 1 tablet by mouth once daily Rosuvastatin 20 mg tablet Discontinued 20 mg PO DAILY January 10, 2022 12:00am July 07, 2022 10:24am CHOLESTEROL Start: 04-29-2012 End: 08-11-2013 take 1 tablet by mouth at bedtime CRESTOR 10 MG TABS One tablet by mouth at bedtime. ROSUVASTATIN CALCIUM [id number] Noble Gloria MD traMADol hydrochloride 50 mg oral tablet (7 sources) Opioid Agonist Start: 09-09-2024 End: 10-04-2024 take 1 tablet by mouth every six hours as needed for pain Tramadol 50 mg tablet Discontinued 50 mg PO EVERY 6 HOURS as needed for pain 10 3 0 September 09, 2024 12:00am October 04, 2024 9:00am History of laparoscopy Other specified postprocedural states vitamin b6 100 mg oral tablet (4 sources) Start: 12-17-2010 End: 06-06-2014 take 1 tablet by mouth once daily VITAMIN B-6 100 MG TABS One tablet by mouth daily PYRIDOXINE HCL [id number] Reshma Mccloud PA-C Problems Active Problems Problem Classification Problem Date Documented Da te Episodic/Chronic Abdominal hernia (20 sources) Gastroesophageal reflux disease with hiatal hernia; Translations: [Diaphragmatic hernia without obstruction or gangrene] Onset: 5 05-02-2024 Episodic Comment on above: Patient is 73-year-o ld female that is severely symptomatic from a hiatal hernia with GERD symptoms despite maximal medical therapy with PPI, H2 ana, and Tums. Admittedly, some of her lifestyle choices precipitate the symptoms but patient states they are a big part of her enjoyment in life and she is unwilling to modify them. This previously represented part of her interest in proceeding with antireflux surgery but when she was advised that she may not be able to vomit or belch normally thereafter our discussion fell off. Patient presents today because of persistent symptoms which she finds intolerable. I did review our older conversations and confirmed that she now felt differently about a possible surgery. Even still during the course of our conversation she raised objections about the time away from activity and I reminded her that she would need to allow herself ample time for recovery to ensure an optimal outcome. She begrudgingly agreed and her also tried to provide perspective. Since it has been 9 months since her last scope and she is reporting some progression of symptoms I have recommended repeat EGD. After she shared that she had a retained hemostatic clip that is disqualifying her from an MRI the need for this study is furthered and I would plan to remove that clip at the time of repeat study. Additionally, I have informed her that we would need to proceed for upper GI with esophagram and esophageal manometry. The need for both of these exams was explained and patient agreed to proceed as recommended. Ultimately, shared my belief that barring any surprises with the studies I believe she would be an excellent candidate for hiatal hernia reduction and partial fundoplication. Abdominal pain (19 sources) Epigastric pain; Translations: [Epigastric pain] 05-02-2024 Episodic Comment on above: Likely related to GE RD Acute cerebrovascular disease (20 sources) Cerebrovascular accident; Translations: [Cerebral infarction, unspecified] Onset: 3 07-07-2022 Chronic Comment on above: 02-02Some memory los s. Word recovery. Some vision issues. These have mostly resolved. Blindness and vision defects (20 sources) Visual alteration; Translations: [Unspecified visual loss] Chronic Cardiac and circulatory congenital anomalies (20 sources) Patent foramen ovale; Translations: [Patent foramen ovale] 07-07-2022 Chronic Deficiency and other anemia (1 source) Anemia; Translations: [Anemia, unspecified] Onset: 3 Episodic Disorders of lipid metabolism (20 sources) Hyperlipidemia; Translations: [Hypercholesterolemia] Onset: 1 12-17-2010 Chronic Esophageal disorders (20 sources) Gastroesophageal reflux disease; Translations: [Gastro-esophageal reflux disease without esophagitis] Onset: 5 12-18-2022 Chronic Comment on above: Patient with refract ory reflux disease despite now transitioning to pantoprazole. She describes symptoms occurring with a daily frequency. She is additionally using Tums and famotidine. She has identified food triggers, but on apologetic lately states that she still likes these foods and simply tries to minimize their effect by avoiding them closer to bedtime. We had a rather lengthy conversation around reflux disease and pathologic states that lead to them. Specifically, addressed the scenario of a hiatal hernia and used a picture diagrams to facilitate this conversation. Regarding procedure plans, I shared with her the opportunity could be taken to perform a pH probe placement, however, she seems very reluctant to consider any additional surgery and simply is most interested in being screened for Basilio's esophagus. Therefore we will plan for diagnostic EGD alone with biopsy. Patient is on Plavix and will need to have this held for 7 days preprocedure to minimize her bleeding risk with these biopsies.Update 10/20/2023: Patient is a 73-year-old female who remains stable for her symptoms and overall describes relief with PPI medication. She freely confesses that she continues to engage in habits that provoke her symptoms, but is unwilling to change some of them due to her enjoyment of those things. However, when we discuss possibility of fundoplication I used hand drawings to illustrate the different anatomical states and described potential inability to either belch or vomit. Upon hearing this both patient and her immediately displayed a lack of acceptance with any further proposition of surgical intervention. Patient did ask whether or not she would even have to go through with additional EGD exams. Given that patient has no evidence of Basilio's esophagus and only mild gastritis I advised her that there would be no indication based on present data to repeat the endoscopy. And since she declines further discussion around surgery I will not proceed with any additional workup of her hiatal hernia at this time. I have advised her to simply take pantoprazole 40 mg daily and then supplement with either Tums or famotidine as needed for additional symptoms. Of also encouraged her to take proactive steps with limiting some of her habits that are likely provoking her symptoms.Update 06/21/2023: I reviewed with patient and her the results of her recent manometry testing and barium swallow. Manometry showed normal LES function but slightly increased UES relaxation tone and some fragmented swallows. Barium swallow demonstrated evidence of a small sliding hiatal hernia with gastroesophageal reflux as well as some tertiary contractions. With the fragmented swallows and the tertiary retractions as well as patient's age and other neurologic concerns I shared my recommendation would be to proceed with a laparoscopic partial fundoplication in addition to hiatal hernia reduction/repair. Relevant anatomy and the rationale for this was reviewed with patient. However, the majority of our visit actually covered some recent neurologic symptoms that patient is undergoing a workup for to exclude the possibility of further clinically significant neurologic events given her history of CVA. Fortunately, recent brain MRI did not show any new infarcts, but patient has not followed up with neurology since acquisition of the study. Further, she has had no formal evaluation of her vision from either optometry or ophthalmology. She is due for an optometry evaluation next week. Given these new symptoms and the incompleteness of the evaluation I frankly shared with patient and her that I was uncomfortable proceeding with a potentially 2 to 3-hour general anesthetic where she may be at risk for intermittent hypotension without assurance that she is optimized or safe from a neurologic standpoint. Patient and her expressed appreciation for this consideration and we will plan to follow-up after this evaluation is completed. I will look to discuss further with neurology. Patient with refract ory reflux disease despite now transitioning to pantoprazole. She describes symptoms occurring with a daily frequency. She is additionally using Tums and famotidine. She has identified food triggers, but on apologetic lately states that she still likes these foods and simply tries to minimize their effect by avoiding them closer to bedtime. We had a rather lengthy conversation around reflux disease and pathologic states that lead to them. Specifically, addressed the scenario of a hiatal hernia and used a picture diagrams to facilitate this conversation. Regarding procedure plans, I shared with her the opportunity could be taken to perform a pH probe placement, however, she seems very reluctant to consider any additional surgery and simply is most interested in being screened for Basilio's esophagus. Therefore we will plan for diagnostic EGD alone with biopsy. Patient is on Plavix and will need to have this held for 7 days preprocedure to minimize her bleeding risk with these biopsies.Update 10/20/2023: Patient is a 73-year-old female who remains stable for her symptoms and overall describes relief with PPI medication. She freely confesses that she continues to engage in habits that provoke her symptoms, but is unwilling to change some of them due to her enjoyment of those things. However, when we discuss possibility of fundoplication I used hand drawings to illustrate the different anatomical states and described potential inability to either belch or vomit. Upon hearing this both patient and her immediately displayed a lack of acceptance with any further proposition of surgical intervention. Patient did ask whether or not she would even have to go through with additional EGD exams. Given that patient has no evidence of Basilio's esophagus and only mild gastritis I advised her that there would be no indication based on present data to repeat the endoscopy. And since she declines further discussion around surgery I will not proceed with any additional workup of her hiatal hernia at this time. I have advised her to simply take pantoprazole 40 mg daily and then supplement with either Tums or famotidine as needed for additional symptoms. Of also encouraged her to take proactive steps with limiting some of her habits that are likely provoking her symptoms.Update 06/21/2023: I reviewed with patient and her the results of her recent manometry testing and barium swallow. Manometry showed normal LES function but slightly increased UES relaxation tone and some fragmented swallows. Barium swallow demonstrated evidence of a small sliding hiatal hernia with gastroesophageal reflux as well as some tertiary contractions. With the fragmented swallows and the tertiary retractions as well as patient's age and other neurologic concerns I shared my recommendation would be to proceed with a laparoscopic partial fundoplication in addition to hiatal hernia reduction/repair. Relevant anatomy and the rationale for this was reviewed with patient. However, the majority of our visit actually covered some recent neurologic symptoms that patient is undergoing a workup for to exclude the possibility of further clinically significant neurologic events given her history of CVA. Fortunately, recent brain MRI did not show any new infarcts, but patient has not followed up with neurology since acquisition of the study. Further, she has had no formal evaluation of her vision from either optometry or ophthalmology. She is due for an optometry evaluation next week. Given these new symptoms and the incompleteness of the evaluation I frankly shared with patient and her that I was uncomfortable proceeding with a potentially 2 to 3-hour general anesthetic where she may be at risk for intermittent hypotension without assurance that she is optimized or safe from a neurologic standpoint. Patient and her expressed appreciation for this consideration and we will plan to follow-up after this evaluation is completed. I will look to discuss further with neurology.Update 08/12/2024: Patient has made outpatient visits with both neurology and ophthalmology who have provided reassurance that she is not experiencing any new neurologic symptoms and requires no further workup. She continues to be plagued by frequent reflux events despite compliance with scheduled PPI medication and as needed [id number] antacids. Additionally she complains of some choking which I suspect may be related to some esophagitis or simply active aspiration as she reports the taste of acid in her mouth. With the significant symptoms she reports I believe it is now time to proceed with scheduling for laparoscopic hiatal hernia repair with toupee fundoplication. We reviewed the operation in detail as well as the expected postoperative recovery including dietary restrictions. All questions were answered from patient and her . They are interested in moving forward to soon as possible. We will need to obtain clearance for hold of pa (more content not included)... Essential hypertension (20 sources) Hypertensive disorder; Translations: [Essential (primary) hypertension] Onset: 1 12-17-2010 Chronic Gastrointestinal hemorrhage (11 sources) Hematochezia; Translations: [Melena] 05-02-2024 Episodic Comment on above: Related constipation . Unclear if this is related to hemorrhoids or not. Malaise and fatigue (20 sources) Fatigue; Translations: [Other fatigue] Onset: 5 02-16-2023 Episodic Nonmalignant breast conditions (20 sources) Breast lump; Translations: [Unspecified lump in the right breast, unspecified quadrant] 04-25-2022 Episodic Osteoarthritis (2 sources) Unilateral post-traumatic osteoarthritis, left knee; Translations: [Unilateral post-traumatic osteoarthritis, left knee] Onset: 3 Chronic Other and unspecified benign neoplasm (11 sources) History of polyp of colon; Translations: [History of colonic polyps] 05-02-2024 Episodic Comment on above: Patient describes im minent colonoscopy with another provider. I suggested she could go for colonoscopy and EGD concurrently to save on sedation and holding of her antiplatelet agents with just 1 procedure. I offered to perform the procedure for her. Patient was immediately receptive. She does appear to be at some increased risk for colon cancer both reporting history of adenomatous polyps for herself and that she is overdue for surveillance colonoscopy as well as a family history for colon cancer (diagnosed in her mother) and her eighth decade of life. Given reports of constipation we will plan for 2-day bowel prep Other connective tissue disease (1 source) Artificial knee joint present; Translations: [Presence of left artificial knee joint] Onset: 3 Chronic Other connective tissue disease (18 sources) Hand pain; Translations: [Pain in right hand] 11-07-2022 Episodic Other gastrointestinal disorders (11 sources) Constipation; Translations: [Constipation, unspecified] 05-02-2024 Episodic Comment on above: Described as infrequ ent bowel movements approximately 1/week with lots of toilet time and straining. Some associated hematochezia noted. Patient is not supplementing her fiber and not taking any laxatives regularly. She has been instructed to try to make some meaningful changes with respect to these issues. Other nervous system disorders (20 sources) Polyneuropathy; Translations: [Polyneuropathy, unspecified] 11-07-2022 Chronic Other nervous system disorders (8 sources) Polyneuropathy, unspecified; Translations: [Unspecified hereditary and idiopathic peripheral neuropathy] Onset: 5 11-06-2022 Chronic Other nervous system disorders (14 sources) Other acute postprocedural pain; Translations: [Acute postoperative pain of knee] 02-20-2023 Episodic Other nervous system disorders (14 sources) H/O: Disorder; Translations: [Personal history of other diseases of the nervous system and sense organs] 02-20-2023 Episodic Other nutritional; endocrine; and metabolic disorders (16 sources) Obesity; Translations: [Obesity, unspecified] 05-24-2024 Chronic Residual codes; unclassified (20 sources) Past history of procedure; Translations: [Other specified postprocedural states] 04-30-2022 Episodic Residual codes; unclassified (11 sources) Family history of cancer of colon; Translations: [Family history of malignant neoplasm of digestive organs] 05-02-2024 Episodic Comment on above: Mother and eighth de yael of life (70s) Residual codes; unclassified (12 sources) History of laparoscopy; Translations: [Other specified postprocedural states] 09-09-2024 Episodic Comment on above: Patient is 74-year-o ld female who arrives for her first visit following laparoscopy with aborted laparoscopic hiatal hernia repair with fundoplication. She is doing well in her recovery well hand on exam. Interestingly, she is not experiencing any significant reflux symptoms. We did resolve to reorder her pantoprazole with a 90-day supply. Additionally, I shared with her at some length both the pictures from her procedure as well as schematic drawings to try to illustrate why the encountered vascular anomaly was so clinically significant. At the conclusion of this discussion patient and her expressed increased understanding and suggested they may not be interested in moving forward with antireflux surgery after all. I have asked them to let me know should they reconsider and to keep in mind that the workup may be in some ways consider time sensitive. They confirm understanding. Thyroid disorders (20 sources) Multinodular goiter; Translations: [Nontoxic multinodular goiter] 07-07-2022 Chronic Comment on above: This is a 72-year-ol d, euthyroid patient, who presents for re-evaluation of bilateral thyroid nodularity. Most notably patient has a 1.7 cm TI-RADS 4 nodule of the right thyroid lobe which underwent FNA biopsy on 12/18/2022 with finding of some atypia. With this [place] 3 result, I recommended that we pursue next generation genomic sequencing with Bran and repeat the biopsy. Patient was receptive of this recommendation and presented today for repeat biopsy. This procedure was undertaken in uncomplicated fashion and full details are given in the procedures section of this note. She is informed that there will be a delay in result reporting given the increased time for outside processing of the special lab. I also instructed her, once again, that she will need to hold her Plavix for 48 hours post procedure then plan to resume. 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] Onset: 1 12-17-2010 Past or Other Problems Problem Classification Problem Date Documented Da te Episodic/Chronic Nonspecific chest pain (4 sources) Chest pain, unspecified; Translations: [Precordial pain] Onset: 12-17-2010 12-17-2010 Episodic Other circulatory disease (2 sources) Elevated blood pressure; Translations: [Elevated blood-pressure reading, without diagnosis of hypertension] Onset: 02-01-2015 02-01-2015 Episodic Other hematologic conditions (1 source) Personal history of diseases of the blood and blood-forming organs and certain disorders involving the immune mechanism; Translations: [Personal history of diseases of the blood and blood-forming organs and certain disorders involving the immune mechanism] Onset: 06-16-2024 Episodic Other skin disorders (2 sources) Excessive sweating; Translations: [Generalized hyperhidrosis] Onset: 09-22-2014 09-22-2014 Episodic Residual codes; unclassified (1 source) Other amnesia; Translations: [Other amnesia] Onset: 06-24-2024 Episodic Unclassified (8 sources) Body mass index (BMI) 29.0-29.9, adult; Translations: [FH: Raised blood lipids] Onset: 06-06-2014 06-06-2014 Episodic Results Test Name Value Interpretation Reference Range Facility Office Visit Reporton 2024 Office Visit Report [facility] [address] [place] [address] OFFICE VISIT Date of Service: 11/14/24 MR#: [id number] Acct: [id number] Patient: ANABELLA SALVADOR Rep #: [id number] : 1950 Provider: Dr. Shiva nixon MD Age/Sex: 74/F Location: [facility] Status: Signed Intake Vital Signs 10/04/24 07:18 10/27/24 10:39 11/14/24 12:04 Height 5 ft 3 in 5 ft 3 in 5 ft 3 in Weight: 165 lb 165 lb 166 lb BMI 29.2 29.2 29.4 BP 115/68 146/75 H 124/60 H Blood Pressure Location Lt brachial Lt brachial Lt brachial Position Sitting Sitting Sitting Respiration 18 15 17 Pulse 70 72 69 Pulse Source Monitor Monitor Monitor Temp 98.0 F 98.2 F Temp Source Temporal Temporal Pulse Oximetry (%) 100 98 Oxygen Delivery Method room air Intake Visit Reasons: B12 inject Chief Complaint: Allergies propoxyphene napsylate (From Darvocet-N) Allergy (Mild, Verified 10/27/24 10:43) Nausea/Vom/Diarrhea atorvastatin (From Lipitor) Allergy (Unknown, Verified 10/27/24 10:43) unknown simvastatin (From Zocor) Allergy (Unknown, Verified 10/27/24 10:43) unknown Sulfa (Sulfonamide Antibiotics) Allergy (Unknown, Verified 10/27/24 10:43) Headache, nausea Have you fallen in the past year?: No Office Meds cyanocobalamin (vitamin B-12) 1,000 mcg/mL injection solution Performing Provider: Shiva Perkins MD Performing Location: [facility] Administered by: Veronique Valerio on 11/14/24 11:40 Dose Route Admin Location Dispensed Lot Number Expiration Date [facility] ufacturer 1,500 mcg IM left deltoid 1.5 mL [id number] 09/10/26 58030-901-32 ABBE MEDRANO Comments: The patient presents for B12 injection for treatment of fatigue. She has fatigue. Her last B12 injection was of benefit for fatigue. The patient is awake and alert. B12 1500mcg IM was administered today. There were no complications. Assessment and Plan Assessment and Plan (1) Fatigue: Status: Acute Orders: Orders Vitamin B12 Today R53.83 - Other fatigue Clinical Quality Measures Falls Risk Screening/Assistive Devices Have you fallen in the past year?: No 11/14/24 1708 Date Shiva Perkins MD [facility] Signature: Date (if applicable) CC: Normal [facility] Neurology Visit Reporton Neurology Visit Report [facility] [address], [address] [place] [id number] OFFICE VISIT Date of Service: 10/27/24 MR#: [id number] Acct: [id number] Name: CASE,ANABELLA HILARIO Rep #: [id number] : 1950 Provider: Dr. Shiva nixon MD Age/Sex: 74/F Location: [facility] Status: Signed HPI HPI Chief Complaint: Details: Interim History: Anabella returns for follow-up visit. She has a history of hyperlipidemia, gastroesophageal reflux disease, and hypertension. In December 2021, she experienced acute onset visual field impairment. For a few seconds, she was unable to see objects before her and then subsequently began to experience fluctuating scintillations described as blurry spots, checkered scotoma pattern and color scintillations. She did not have associated numbness, weakness or gait difficulty. She had a headache. She noted having some word finding difficulty but did not have slurred speech or impaired comprehension. She had some memory difficulty. She did not seek medical attention that day. Two days later, she was evaluated by an as400 consultant and per the patient's report, was found to have a visual field deficit and was thought to have had a stroke (an official report is presently not available). Her visual deficits did not improve in the following day she presented to the hospital and on evaluation was found to have an acute left occipital cortical infarct. Her EKG revealed normal sinus rhythm with ST and T wave abnormalities raising concern for lateral ischemia. Her cardiac echo revealed a possible patent foramen ovale. A carotid ultrasound revealed less than 50% stenosis of the internal carotid arteries bilaterally and this was corroborated by neck CTA. A head CTA revealed narrowing of the M1 segment of the left middle cerebral artery (greater than 70%) and M2 of the right middle cerebral artery (greater than 75%). She was on aspirin 81 mg daily and rosuvastatin 20 mg daily when her stroke occurred. Subsequently, clopidogrel was added. Since this medication change, she has noticed easy bruising. Clopidogrel was then discontinued and aspirin was increased to 162mg daily however subsequently in July 2022 she had worsening of her visual impairment manifesting with increased visual field impairment in the right visual field over her baseline visual field impairment from her stroke in December 2021 and this persisted. 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 Clopidogrel was resumed and aspirin was reduced back to 81mg daily. She takes rosuvastatin 20 mg daily (rosuvastatin 40 mg daily caused myalgias). She has not had further symptoms suggestive of cerebrovascular ischemia since July 2022. Her speech and memory have continued to improve. In 2023, she had a momentary episode of dysphasia; she did not seek medical attention for this. She saw a tooler and had a transesophageal echo in 2022 and she was found not to have an atrial septal defect. She had an implanted cardiac loop recorder placed in 2022. She does not have any history of symptomatic stroke prior to December 2021. She continues to have some word finding difficulty and memory difficulty and some visual impairment that manifests with impaired ability to read and spelling difficulty. Her neck CTA also revealed thyroid nodules. She had migraine headaches in years past (throbbing headaches with associated nausea, photophobia and phonophobia). These headaches subsided after she had a hysterectomy around the age of 61. She has experienced intermittent occasional bitemporal icepick headaches, a migraine variant. She does not report having recent headaches. She has had burning pain in the feet that is worse at night consistent with a polyneuropathy; this has been occurring since around 2012. Around 2012, she had lumbar surgery for low back pain and right lower extremity radicular pain and this was of benefit. She no longer has back pain. She has pain in both hands. She only occasionally has neck pain. Gabapentin, tried in the past for neuropathic pain, caused cognitive side effects. Pregabalin 75mg BID is of some benefit for her neuropathic pain. She takes duloxetine for depression and anxiety. EMG/nerve conduction studies of the lower extremities in 2022 were normal. EMG/nerve conduction studies of the upper extremities in 2022 were normal. A left lower extremity skin biopsy to assess for small fiber polyneuropathy revealed significantly reduced epidermal nerve fiber density in the left foot consistent with small fiber neuropathy, and low normal epidermal nerve fiber density at the left calf. She is taking duloxetine and this has been of benefit for her neuropathic pain. Folic acid was initiated for a folate level near the low end of the normal range. She has fatigue. Her B12 level (more content not included)... Normal [facility] Office Visit Reporton 2024 Office Visit Report [facility] [address] [place] [address] OFFICE VISIT Date of Service: 10/13/24 MR#: [id number] Acct: [id number] Patient: ANABELLA SALVADOR Rep #: [id number] : 1950 Provider: Dr. Shiva nixon MD Age/Sex: 74/F Location: [facility]. Status: Signed Intake Vital Signs 10/04/24 07:18 10/13/24 10:27 Height 5 ft 3 in Weight: 165 lb 164 lb 10 oz BMI 29.2 BP 115/68 144/73 H Blood Pressure Location Lt brachial Lt brachial Position Sitting Sitting Respiration 18 17 Pulse 70 83 Pulse Source Monitor Monitor Temp 97.8 F Temp Source Temporal Pulse Oximetry (%) 100 Intake Visit Reasons: B12 inject Chief Complaint: Allergies propoxyphene napsylate (From Darvocet-N) Allergy (Mild, Verified 10/04/24 16:50) Nausea/Vom/Diarrhea atorvastatin (From Lipitor) Allergy (Unknown, Verified 10/04/24 16:50) unknown simvastatin (From Zocor) Allergy (Unknown, Verified 10/04/24 16:50) unknown Sulfa (Sulfonamide Antibiotics) Allergy (Unknown, Verified 10/04/24 16:50) Headache, nausea Have you fallen in the past year?: No Office Meds cyanocobalamin (vitamin B-12) 1,000 mcg/mL injection solution Performing Provider: Shiva Perkins MD Performing Location: [facility] Administered by: Veronique Valerio on 10/13/24 10:10 Dose Route Admin Location Dispensed Lot Number Expiration Date DANILO [facility] ufderrekurer 1,500 mcg IM left deltoid 1.5 mL [id number] 10/10/25 7289-9547-89 [facility]OB[facility] Comments: The patient presents for B12 injection for treatment of fatigue. She has fatigue. Her last B12 injection was of benefit for fatigue. The patient is awake and alert. B12 1500mcg IM was administered today. There were no complications. Assessment and Plan Assessment and Plan (1) Fatigue: Status: Acute Orders: Orders Vitamin B12 Today R53.83 - Other fatigue Clinical Quality Measures Falls Risk Screening/Assistive Devices Have you fallen in the past year?: No 10/13/24 1458 Date Shiva Quintero Signature: Date (if applicable) CC: Normal [facility] Cardiology Visit Reporton Cardiology Visit Report [facility] [address] [place] [address] OFFICE VISIT Date of Service: 10/04/24 MR#: [id number] Acct: [id number] Name: CASEANABELLA Rep #: [id number] : 1950 Provider: VALENTE strickland Age/Sex: 74/F Location: [facility] Status: Signed HPI HPI History of Present Illness Details: Pleasant 74-year-old lady who presents to the office today for cardiovascular follow-up visit. She was last seen in our office in 2022. She has a history of hypertension, and CVA. She was evaluated for hypertension and diaphoresis and underwent an echocardiogram which was normal a cardiac catheterization which was normal and a 24-hour urine for VMA which was also normal. More recently she says that she has had some cerebrovascular accidents which have been demonstrated and documented on MRI. Her last MRI was from August 11 which demonstrated evidence of an acute left occipital subcortical infarct and an old left parietal infarct. She is scheduled to have an echocardiogram and was sent to us for possible [place] as well. As part of her work-up she also had a 30-day event monitor which demonstrated sinus rhythm with a first-degree AV block and a rate of 69 bpm and no acute changes. She has had no dizziness or diaphoresis near syncope or syncope her physical exam today is unremarkable her electrocardiogram demonstrates sinus rhythm with a rate of 70 bpm and no acute changes. Her last echocardiogram however had demonstrated an ejection fraction of 70% mitral calcification and a mid LVOT gradient of 64 mmHg with a probable patent foramen ovale. Lipid levels demonstrated total cholesterol 141 HDL of 38 LDL of 59. Carotid duplex were unremarkable. From a cardiac standpoint, the patient is doing well. She denies any palpitations, chest pain, pressure or heaviness. She denies SOB, Orthopnea, and PND. She does acknowledge an increase in bruising. She does not have bleeding issues; no blood in urine, stool, or nosebleeds. She denies any decrease in energy level, myalgias, or claudication. She does not have edema, or sudden weight gain. She denies lightheadedness, dizziness, syncopal or near syncopal episodes, and headaches. Intake Vital Signs 08/12/24 08:28 10/04/24 07:18 Height 5 ft 3 in 5 ft 3 in Weight: 165 lb BMI 29.2 BP 115/68 Blood Pressure Location Lt brachial Position Sitting Respiration 18 Pulse 70 Pulse Source Monitor Pulse Oximetry (%) 100 Intake Visit Reasons: OVERDUE FOR OV/SEE NOTES ALSO Physician Practice Coordinator Required: No Is patient in pain?: No Allergies propoxyphene napsylate (From Darvocet-N) Allergy (Mild, Verified 10/04/24 16:50) Nausea/Vom/Diarrhea atorvastatin (From Lipitor) Allergy (Unknown, Verified 10/04/24 16:50) unknown simvastatin (From Zocor) Allergy (Unknown, Verified 10/04/24 16:50) unknown Sulfa (Sulfonamide Antibiotics) Allergy (Unknown, Verified 10/04/24 16:50) Headache, nausea Medications ???Medication ???Instructions ???Recorded ???Confirmed ???Type fluticasone propionate 50 50 mcg intranasal DAILY PRN PRN 10/04/24 History mcg/actuation nasal ALLERGIES spray,suspension (Flonase Allergy Relief) losartan 50 mg tablet 50 mg PO DAILY BP 01/10/22 5 History metoprolol succinate 100 mg 100 mg PO DAILY BP 01/10/22 History tablet,extended release 24 hr multivitamin 1 tab PO DAILY 07/24/22 10/04/24 H istory aspirin 81 mg tablet,delayed 81 mg PO DAILY 09/03/22 10/04/24 H istory release (Adult Low Dose Aspirin) duloxetine 60 mg capsule,delayed 60 mg PO DAILY 09/03/22 10/04/24 H istory release glycopyrrolate 1 mg tablet 1 mg PO TID 09/03/22 10/04/24 Hist ory clopidogrel 75 mg tablet 75 mg PO DAILY #90 tabs 05/23/24 0 10/04/24 Rx folic acid 1 mg tablet 1 mg PO DAILY #90 tabs 05/23/24 Rx topiramate 25 mg tablet 25 mg PO BID #180 tabs 05/23/24 Rx rosuvastatin 20 mg tablet 20 mg PO QHS #90 tabs 05/24/24 Rx estradiol 0.01% (0.1 mg/gram) 1 appful vaginal .as directed PRN 08/25/24 10/04/24 History vaginal cream vaginal dryness pregabalin 50 mg capsule 50 mg PO BID 08/25/24 10/04/24 His tory pantoprazole 40 mg tablet,delayed 40 mg PO QDAY 3 months #90 tabs 0 09/20/24 10/04/24 Rx release famotidine 20 mg tablet 20 mg PO QDAY 10/04/24 10/04/24 Hi story Ejection fraction %: 70 Have you fallen in the past year?: No PFSH Medical History Easy bruising Migraine headache Hypertension Epigastric pain Wears glasses Cancer Arthritis High cholesterol Gastric reflux Non-smoker Implantable loop recorder present History of echocardiogram Cardiology follow-up encounter Fatigue Abnormal mammogram of right breast Bloo (more content not included)... Normal [facility] Surgery Visit Reporton 09-20 Surgery Visit Report [facility] [address] [place], [place] [id number] OFFICE VISIT Date of Service: 09/20/24 MR#: [id number] Acct: [id number] Name: CASEANABELLA Rep #: [id number] : 1950 Provider: Dr. Michele bryant MD Age/Sex: 74/F Location: [facility] Status: Signed Intake Vital Signs 09/09/24 06:40 Height 5 ft 3 in Intake Visit Reasons: ABORTED LAP LORA 09-09 Chief Complaint: aborted lap lora Is patient in pain?: No Allergies propoxyphene napsylate (From Darvocet-N) Allergy (Mild, Verified 09/20/24 09:25) Nausea/Vom/Diarrhea atorvastatin (From Lipitor) Allergy (Unknown, Verified 09/20/24 09:25) unknown simvastatin (From Zocor) Allergy (Unknown, Verified 09/20/24 09:25) unknown Sulfa (Sulfonamide Antibiotics) Allergy (Unknown, Verified 09/20/24 09:25) Headache, nausea Medications ???Medication ???Instructions ???Recorded ???Confirmed ???Type fluticasone propionate 50 50 mcg intranasal DAILY PRN PRN 09/20/24 History mcg/actuation nasal ALLERGIES spray,suspension (Flonase Allergy Relief) losartan 50 mg tablet 50 mg PO DAILY BP 01/10/22 5 History metoprolol succinate 100 mg 100 mg PO DAILY BP 01/10/22 History tablet,extended release 24 hr multivitamin 1 tab PO DAILY 07/24/22 09/20/24 H istory aspirin 81 mg tablet,delayed 81 mg PO DAILY 09/03/22 09/20/24 H istory release (Adult Low Dose Aspirin) duloxetine 60 mg capsule,delayed 60 mg PO DAILY 09/03/22 09/20/24 H istory release glycopyrrolate 1 mg tablet 1 mg PO TID 09/03/22 09/20/24 Hist ory clopidogrel 75 mg tablet 75 mg PO DAILY #90 tabs 05/23/24 0 09/20/24 Rx folic acid 1 mg tablet 1 mg PO DAILY #90 tabs 05/23/24 Rx topiramate 25 mg tablet 25 mg PO BID #180 tabs 05/23/24 Rx rosuvastatin 20 mg tablet 20 mg PO QHS #90 tabs 05/24/2402/04 Rx estradiol 0.01% (0.1 mg/gram) 1 appful vaginal .as directed PRN 08/25/24 09/20/24 History vaginal cream vaginal dryness pregabalin 50 mg capsule 50 mg PO BID 08/25/24 09/20/24 His tory tramadol 50 mg tablet 50 mg PO Q6H PRN pain 3 days #10 0 09/09/24 09/20/24 Rx tabs pantoprazole 40 mg tablet,delayed 40 mg PO QDAY 3 months #90 tabs 0 09/20/24 09/20/24 Rx release Have you fallen in the past year?: No Subjective Details: Patient is a 74-year-old female who reports for follow-up of aborted hiatal hernia repair with toupet fundoplication on 09/09/2024. She reports today's visit with her . She states she has done well following her procedure. She describes persistent soreness in 2 particular areas of her left abdomen but otherwise reports that she is feeling really good. By this she states that she has experienced minimal reflux which is weird. She even notes going to [facility] recently and not experiencing severe symptoms. She denies any wound concerns apart from her soreness Objective Details: Constitutional: Cooperative, appreciative Abdomen: Well-healing port site incisions with expected induration deep to the 12 mm ports which are the source of her primary soreness. No signs of underlying hematoma or infection. There is no surrounding erythema or drainage from any of the port sites. Patient's abdomen is nondistended, soft, and otherwise nontender. Coding Level of Care Code Global Post Op Diagnoses History of laparoscopy Z98.890 [facility] Medical History Easy bruising Migraine headache Hypertension Epigastric pain Wears glasses Cancer Arthritis High cholesterol Gastric reflux Non-smoker Implantable loop recorder present History of echocardiogram Cardiology follow-up encounter Fatigue Abnormal mammogram of right breast Blood thinned due to long-term anticoagulant use GERD (gastroesophageal reflux disease) CVA (cerebral vascular accident) Alteration in vision Hypercholesterolemia Surgical History (Updated 09/20/24 @ 17:[address] Michele Roach MD) History of esophagogastroduodenoscopy (EGD) History of cardiac catheterization History of knee replacement procedure of left knee History of left heart catheterization (06/13/14) History of sinus surgery History of squamous cell carcinoma excision History of colonoscopy ( 2016) History of right breast biopsy History of back surgery Hx of cataract surgery H/O arthroscopic knee surgery H/O: hysterectomy Family History Mother Hypertension High cholesterol Grandmother CVA (cerebral vascular accident) Other Alcoholism Cancer Social History household members: spouse Smoking Status: Never smoker second hand exposure: No alcoho (more content not included)... Normal [facility] Discharge Instructionon 08-13 Discharge Instruction [facility] Medical Records Department [address] [place] [address] Instructions for Home/Discharge Instructions 09/09/24 0934 MR#: [id number] Acct: [id number] Name: ANABELLA SALVADOR Rep #: [id number] : 1950 74 From: Michele Roach MD PCP: Dr. Stefani Ball MD Status:DEP [facility] Discharge Instructions Diet Discharge Diet: No restrictions Activity Discharge Activity: May Not Drive (No driving while using narcotic pain medication) and May Shower (Postoperative day 1) May shower in (days): 2 Ice area for (Minutes): 20 Lifting Restrictions: No lifting greater than 15 pounds for 2 weeks after surgery Dressing / Incision Call your doctor if your incision/area has: Continuous Slow Oozing, Increased Pain/ Swelling, Increased Redness, Foul Smelling Discharge and Swelling at the incision site Call your doctor if you observe: Fever of 101 or Higher Remove Dressing in: 2 days (Please leave Steri-Strips intact until they fall off spontaneously or are taken off at your follow-up visit) Cleanse incision/area with: Soap Water Follow Up Care Please Follow Up With: Michele Roach MD When: 7-10days postop Test Results: Test results from this visit will be discussed in further detail at your follow-up appointment, if applicable. Discharge Plan Admission Primary Reason for Your Visit: Attempted laparoscopic hiatal hernia repair Attending Provider: Michele Roach Primary Care Provider: Stefani Ball Consulting Providers: Reynaldo Ely Instructions Additional Instructions / Restrictions: Please wait to resume Plavix for 48 hours post procedure Print Language: Jordanian Discharge Orders/Prescriptions Prescriptions: New tramadol 50 mg tablet 50 mg PO Q6H PRN (Reason: pain) 3 Days Qty: 10 0RF Continued multivitamin Tablet 1 tab PO DAILY duloxetine 60 mg capsule,delayed release(DR/EC) 60 mg PO DAILY aspirin [Adult Low Dose Aspirin] 81 mg tablet,delayed release (DR/EC) 81 mg PO DAILY glycopyrrolate 1 mg tablet 1 mg PO TID clopidogrel 75 mg tablet 75 mg PO DAILY Qty: 90 3RF folic acid 1 mg tablet 1 mg PO DAILY Qty: 90 3RF topiramate 25 mg tablet 25 mg PO BID Qty: 180 3RF rosuvastatin 20 mg tablet 20 mg PO QHS Qty: 90 1RF pantoprazole 40 mg tablet,delayed release (DR/EC) 40 mg PO QDAY losartan 50 mg tablet 50 mg PO DAILY metoprolol succinate 100 mg tablet extended release 24 hr 100 mg PO DAILY fluticasone propionate [Flonase Allergy Relief] 50 mcg/actuation [place]ane,Suspension 50 mcg INTRANASAL DAILY PRN PRN (Reason: ALLERGIES) estradiol 0.01 % (0.1 mg/gram) cream 1 appful vaginal .as directed PRN (Reason: vaginal dryness) pregabalin 50 mg capsule 50 mg PO BID Referrals / Follow Up: Stefani Ball MD [Primary Care Provider] - Disposition Disposition (needs filled in before D/C Order can be placed): Home, Self Care 09/09/24 1231 Michele Roach MD CC: Dr. Stefani Ball MD; Dr. Reynaldo Ely MD Signed [facility] MR/POSTOP.[facility] 09-09-2024 MR/POSTOP.[facility] Medical Records Department [address] [place] [address] Anesthesia Postop Eval I 09/09/24 0951 MR#: [id number] Acct: [id number] Name: ANABELLA SALVADOR Rep #: [id number] : 1950 74 From: Racheal Amado CRNA PCP: Dr. Stefani Ball MD Status:[facility] [facility] Y Race: C Location: [place] [address] Anesthesia: Postop Eval I Current Vital Signs Temperature: 98.3 F Pulse Rate: 82 Blood Pressure: 164/70 Respiratory Rate: 16 Pulse Ox: 96 Oxygen Delivery Method: Nasal Cannula Oxygen Flow Rate (L/min): 2 Assessment Airway patent: Yes Spontaneous unlabored respirations: Yes Mental status: Awake and Calm nausea: No Vomiting: No Anesthesia Complication: No Fluid Hydration Crystalloid volume administer (ml): 1,000 Total IV fluid infused: 1,000 Progress Note Anesthesia document: Postop Eval 1 completed: Yes 09/09/24951 Date Racheal Amado OUTBOUND CALL CENTER REPRESENTATIVE Cosigner Signature: Date CC: Signed Normal [facility] [id number] 09-09-2024 /[facility] Medical Records Department [address] [place] [address] Anesthesia Postop Eval II 09/09/24 1639 MR#: [id number] Acct: [id number] Name: CASEANABELLA Rep #: [id number] : 1950 74 From: Cyndi Eubanks OUTBOUND CALL CENTER REPRESENTATIVE PCP: Dr. Stefani Ball MD Status:[facility] Y Race: C [place] [facility] [place]esthesia Postop Eval I Sum Postop Eval Completion status Anesthesia document: Postop Eval 1 completed: Yes Anesthesia Postop Eval I Summary Anesthesia Postop Eval I Summary: Anesthesia Postop Eval I: Assessment Summary Airway patent Yes 09/09/24 09:52 OUTBOUND CALL CENTER REPRESENTATIVE.GDOTT Spontaneous unlabored Yes 09/09/24 09:52 OUTBOUND CALL CENTER REPRESENTATIVE.GDOTT respirations Mental status Awake,Calm 09/09/24 09:52 OUTBOUND CALL CENTER REPRESENTATIVE.GDOTT nausea No 09/09/24 09:52 OUTBOUND CALL CENTER REPRESENTATIVE.GDOTT Vomiting No 09/09/24 09:52 OUTBOUND CALL CENTER REPRESENTATIVE.GDOTT Anesthesia Postop Eval I: Fluid Summary Crystalloid volume administer 1,000 09/09/24 09:52 OUTBOUND CALL CENTER REPRESENTATIVE.GDOTT (ml) Colloids volume administered ( ml) Blood Product volume administered (ml) Total IV fluid infused 1,000 09/09/24 09:52 OUTBOUND CALL CENTER REPRESENTATIVE.GDOTT Anesthesia Postop Eval I: Summary Notes Anesthesia Complication No 09/09/24 09:52 OUTBOUND CALL CENTER REPRESENTATIVE.GDOTT Anesthesia Complication Comment: Post-operative progress note Anesthesia: Postop Eval II Evaluation Mental status: Awake Pain Level: 3 nausea: No Vomiting: No 09/09/24 1639 Date Cynditreva Eubanks OUTBOUND CALL CENTER REPRESENTATIVE Cosigner Signature: Date CC: Signed Normal [facility] Operative Reporton Operative Report [facility] Medical Records Department [address] [place] [address] Operative Report 09/09/24917 MR#: [id number] Acct: [id number] Name: ANABELLA SALVADOR Rep #: [id number] : 1950 74 From: Michele Roach MD PCP: Dr. Stefani Ball MD Status:[facility] Location[place] [facility] Operative Report (Standard) Operative Information Date of Procedure: 09/09/24 Pre-Operative Diagnosis: 1. Gastroesophageal reflux disease 2. Hiatal hernia Post-Operative Diagnosis: 1. Gastroesophageal reflux disease 2. Hiatal hernia 3. 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 Aborted laparoscopic hiatal hernia repair 2. Diagnostic laparoscopy authorization representative: Yes Digital Proofing And Platemaker: Thompson Deluca Tasks completed by first calender worker: Opening, Trocar and Retracting Additional cafeteria assistant?: Yes Additional Corner Trimmer Operator #2: Gama Fitzpatrick Tasks completed by cafeteria assistant #2: Closing and Other (laparoscopic camera operation) Type of Anesthesia: General/Supplemental RN Documented Start/Stop Times: Operation Date: 09/09/24 07:30 Case Time Into Pre-Op 09/09/24 06:08 Out of Pre-Op 09/09/24 07:26 Anesthesia Start 09/09/24 07:30 Into Room 09/09/24 07:30 Procedure Start 09/09/24 08:11 Procedure End 09/09/24 09:34 Anesthesia End 09/09/24 09:41 Out of Room 09/09/24 09:41 Into Recovery 09/09/24 09:43 Out of Recovery 09/09/24 10:16 Into Phase II Recovery 09/09/24 10:17 Out of Phase II 09/09/24 12:10 Procedure Start Time: 08:11 Procedure Stop Time: 09:34 Select all DRAINS/GRAFTS/IMPLANTS that apply: None Estimated Blood Loss: 10 Specimen collected: No Description of surgery: Patient was brought to the operating room after being appropriately identified in the preoperative holding area and written consents were confirmed. She was positioned supine on the operating room table and underwent induction with general endotracheal anesthetic. She was administered preoperative antibiotics with 2 g of Ancef for surgical prophylaxis. An orogastric tube was placed by anesthesia. Legs were placed in yellowfin leg holders in lithotomy taking care to avoid pressure to the peroneal nerve. A urinary catheter was placed with sterile technique. SCDs were connected on bilateral lower extremities. Patient's abdomen was prepped and draped in usual sterile fashion. A formal timeout followed to confirm patient and the procedure. The procedure was begun with instillation of local anesthetic and Veress entry made through Koch's point in the left upper quadrant. Optiview entry followed and found no inadvertent injury from the Veress needle. Remainder of the peritoneal cavity was unremarkable to inspection so trocar placement followed with placement of a second 5 mm trocar along the anterior axillary line laterally, then a 12 mm trocar via a supraumbilical/paramedian incision followed by a right upper quadrant 5 mm trocar??? all made under laparoscopic visualization. Lastly an obturator from a 5 mm trocar was used to create the tract in the epigastric abdominal wall for placement of our Betty liver retractor. Betty was positioned to elevate the left lobe of the liver and provide visualization of the hiatus. Dissection was begun by opening the pars flaccida but we quickly encountered what appeared to be rather dense fibrous bands between the phrenoesophageal ligament and the upper portion of the stomach as well as the left lobe of the liver. The most inferior aspect of this band appeared to contain a vessel and some additional dissection superior to this structure indeed confirmed pulsatility. 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 We explored the feasibility of performing a wrap superior to this vessel and the cruraplasty inferior to the vessel, however, the latter seem precluded by limited visibility with the contour of the stomach altered by the aberrant vessel and both the inferior vena cava and the caudate lobe of the liver obscured a clear view to where the crura would meet posteriorly. Therefore, we concluded that the only way the operation could be completed successfully would be to divide the aberrant artery but this seemed to carry risk of malperfusion to both the liver and the proximal stomach so after some discussion the procedure was aborted. The 12 mm supraumbilical/paramedian incision was closed under direct laparoscopic visualization using a #1 PDS and a Dony Bhandari suture passer. The Betty retractor was taken down under direct laparoscopic visualization and then removed. The remaining 5 mm ports were closed at the skin using subcuticular technique with 4-0 Monocryl. Santos catheter was removed and patient was extubated along with removal of the orogastric tube. She was taken in stable conditi (more content not included)... Normal [facility] Office Visit Reporton 2024 Office Visit Report [facility] [address] [place] [address] OFFICE VISIT Date of Service: 09/06/24 MR#: [id number] Acct: [id number] Patient: ANABELLA SALVADOR Rep #: [id number] : 1950 Provider: Dr. Shiva nixon MD Age/Sex: 74/F Location: [facility].BN Status: Signed Intake Vital Signs 07/04/24 11:24 08/12/24 08:28 09/06/24 11:54 Height 5 ft 3 in 5 ft 3 in Weight: 169 lb 2 oz 168 lb BMI 29.9 BP 130/72 H 135/64 H Blood Pressure Location Rt brachial Lt brachial Position Sitting Sitting Respiration 18 17 Pulse 71 80 Pulse Source Monitor Monitor Temp 97.3 F L 97.8 F Temp Source Temporal Temporal Pulse Oximetry (%) 96 Oxygen Delivery Method room air Intake Visit Reasons: B12 inject Chief Complaint: Allergies propoxyphene napsylate (From Darvocet-N) Allergy (Mild, Verified 08/25/24 14:13) Nausea/Vom/Diarrhea atorvastatin (From Lipitor) Allergy (Unknown, Verified 08/25/24 14:13) unknown simvastatin (From Zocor) Allergy (Unknown, Verified 08/25/24 14:13) unknown Sulfa (Sulfonamide Antibiotics) Allergy (Unknown, Verified 08/25/24 14:13) Headache, nausea Have you fallen in the past year?: No Office Meds cyanocobalamin (vitamin B-12) 1,000 mcg/mL injection solution Performing Provider: Shiva Perkins MD Performing Location: [facility] Administered by: Veronique Valerio on 09/06/24 11:56 Dose Route Admin Location Dispensed Lot Number Expiration Date [facility] ufacturer 1,500 mcg IM right deltoid 1.5 mL [id number] 09/10/26 05491-372-84 VITRUVI THERA Comments: The patient presents for B12 injection for treatment of fatigue. She has fatigue. Her last B12 injection was of benefit for fatigue. The patient is awake and alert. B12 1500mcg IM was administered today. There were no complications. Assessment and Plan Assessment and Plan (1) Fatigue: Status: Acute Orders: Orders Vitamin B12 Today R53.83 - Other fatigue Clinical Quality Measures Falls Risk Screening/Assistive Devices Have you fallen in the past year?: No 09/06/24 1822 Date Shiva Perkins MD Cosigner Signature: Date (if applicable) CC: Normal [facility] Bone density reportOrdered B y: Nishant Lim on 08-31-2024 Study report Skeletal system DXA [facility] Imaging Services [address] [place], [place] [address] Dexa Bone Density Study MR#: [id number] Acct: [id number] Name: CASEANABELLA Rep #: [id number] : 1950 F 73 From: Joey Lim MD PCP: Dr. Stefani Ball MD Status: REG CLI Study:Dexa Bone Density Study Date of Exam: 08/30/24 Exam# [id number] Ordering Dr: Chelsea Chen NP TRAILER PARK MANAGER-C PROCEDURE: DEXA BONE DENSITY STUDY 08/30/2024 REASON FOR EXAM: F, age 73 y/o . Postmenopausal. TECHNIQUE: DXA scan of sites with data reported below. [facility] COMPARISON: Prior study dated June 09, 2018. FINDINGS: BMD and T-SCORES Lumbar spine: 1.151 g/cm2, T-score 0.9 Levels: L1 through L4 Change from prior: Loss of 7.7%. Left femoral neck: 0.962 g/cm2, T-score 1.0 Femoral neck comparison data not recommended for monitoring change. Left total hip: 1.1 no for g/cm2, T-score 1.3 Change from prior: Loss of 1.1%. Right femoral neck: 0.887 g/cm2, T-score 0.3 Femoral neck comparison data not recommended for monitoring change. Right total hip: 1.099 g/cm2, T-score 1.3 Change from prior: Loss of 1.9%. The World Health Organization has defined the following categories based on bonedensity: Normal bone density: T-score equal to or greater than -1.0 Osteopenia: T-score between -1.0 and -2.5 Osteoporosis: T-score equal to or less than -2.5 The patient does meet the pharmacological treatment recommendations for prevention of osteoporosis. BD/Dexa Bone Density Study IMPRESSION: NORMAL T-SCORES. Recommend follow-up as clinically warranted. Reading Location: [facility] CC: Chelsea Chen; Dr. Stefani Ball MD ~ Pork Cutlet Maker: Signed [facility] Electrocardiogram reportOrde red By: Noble Gloria on 08-31-2024 EKG study [facility] Cardiovascular Services [address] [place] [address] 12 Lead EKG 08/30/24 0806 MR#: [id number] Acct: [id number] Name: ANABELLA SALVADOR Rep #:[id number] : 1950 73 From: Noble Gloria MD Attending Dr: Dr. Michele Roach MD Status: PRE NCC Ordering Dr: Reynaldo Ely MD Date: 0 08/30/24 [place] [facility] Sex: F C Admitted: Test Reason : PREOP Blood Pressure : */* mmHG Vent. Rate : 68 BPM Atrial Rate : 68 BPM P-R Int : 188 ms QRS Dur : 76 ms QT Int : 396 ms P-R-T Axes : 57 28 91 degrees QTcB Int : 421 ms Normal sinus rhythm Inferior infarct , age undetermined Abnormal ECG Confirmed by NOBLE GLORIA MD ([id number]), editorial cartoonist REGINALD HARO ([id number]) on 56:03:53 AM Referred By: Michele Roach Confirmed By: NOBLE GLORIA MD 08/31/24 0603 Date _ Noble Gloria MD CC: Dr. Stefani Ball MD; Dr. Reynaldo Ely MD; Dr. Michele Roach MD ~ Signed [facility] Work Phone: MR/PATSilva 08-31-2024 MR/PATARMOND [facility] Medical Records Department [address] [place] [address] PAT - Anesthesia 08/31/24 0851 MR#: [id number] Acct: [id number] Name: ANABELLA SALVADOR Rep #: [id number] : 1950 74 From: Yoshi Gabriel MD PCP: Dr. Stefani Ball MD Status:PRE [facility] Y Race: C [place] [facility] Pre-Assessment Diagnosis/Proposed Procedure Planned Operative Procedure(s): Laparoscopic, Lora Fundoplication Hital hernia repair with toupet fundolplication Anesthesia History Anesthesia History - hand welt butter: Anesthesia History - hand welt butter Hx Hospitalization No 08/25/24 14:30 Any Problems With Anesthesia No 08/25/24 14:30 Cholinesterase deficiency No 08/25/24 14:30 You/Your Family Experience No 08/25/24 14:30 fever (hyperthermia) with Relationship Recent Exposure to Contagious No 05/18/24 11:52 Disease Does patient have nerve No 08/25/24 14:30 stimulator Patient instructed to have device shut off --Does patient have Pacemaker or ICD? When Was Last Pacemaker Check QUESTION #4 FULL TEXT: You/Your Family Experience fever (hyperthermia) with Anesthesia Last Oral Intake Last Oral intake: Last Oral Intake NPO since Meds taken in AM with sips of water? Meds patient instructed to take am of surgery PONV PONV - hand welt butter: PONV - hand welt butter Female Yes 08/25/24 14:30 HX of Motion Sickness Yes 08/25/24 14:30 HX of N/V After Surgery Yes 08/25/24 14:30 Non-Smoker Yes 08/25/24 14:30 Duration of Surgery greater Yes 08/25/24 14:30 than 60 minutes Number of Risk Factors 5 08/25/24 14:30 PONV Score Severe Risk 08/25/24 14:30 Height Weight Height Weight: Anesthesia: Height Weight Height 5 ft 3 in 08/12/24 08:28 Respiratory Assessment Respiratory Assessment - hand welt butter: Respiratory Tract Infection Hx - hand welt butter Hx Respiratory Tract Infection No 08/25/24 14:30 STOP Sleep Apnea STOP Sleep Apnea - hand welt butter: STOP Sleep Apnea - hand welt butter Hx Hypertension Yes: on meds 08/25/24 14:30 Hx Sleep Apnea No 08/25/24 14:30 CPAP BIPAP Do you snore loudly (louder No 08/25/24 14:30 than talking or can be heard Do you often feel tired/ No 08/25/24 14:30 fatigued/ sleepy during daytime? Has anyone observed you stop No 08/25/24 14:30 breathing during sleep? STOP Results Negative 08/25/24 14:30 QUESTION #5 FULL TEXT : Do you snore loudly (louder than talking or can be heard through closed doors)? Tobacco Use History Tobacco Use History - hand welt butter: Tobacco Use History - hand welt butter Tobacco Use Smoking Status Never smoker 08/25/24 14:30 Hx Tobacco Use No 08/25/24 14:30 Years Smoking Packs Smoked per Day Smoking Cessation Date was within the last 15 years Hx Smoking Cessation Date Hx Smoking Cessation No 08/25/24 14:30 Counseling Hematologic Medial History Hematologic Hx - hand welt butter: Hematologic Medical Hx - information writer Hx of Blood Transfusion No 08/25/24 14:30 Hx of Transfusion in last 3 No 08/25/24 14:30 Months Date of Last Transfusion (if within last 3 months) Ever experience any problems No 08/25/24 14:30 with transfusion(s)? Specify any problems Hx of Preganancy in last 3 No 08/25/24 14:30 Months Nurse Filling Out Transfusion JZOLLINGE 08/25/24 14:30 Questions: Date: 08/25/24 08/25/24 14:30 Time: 14:33 08/25/24 14:30 Patient unable to answer at this time (ie. confused, unrespo /Reproduction History /Reproductive History - hand welt butter: /Reproductive Hx- hand welt butter Hx Now No 08/25/24 14:30 Gestational Age (in weeks): EDC: Hx Hx Para Hx Section SAB No 08/25/24 14:30 PFSH Medical History (Updated 08/25/24 @ 14:30 by Gisela Jansen) Easy bruising Migraine headache Hypertension Epigastric pain Wears glasses Cancer Arthritis High cholesterol Gastric reflux Non-smoker Implantable loop recorder present History of echocardiogram Cardiology follow-up encounter Fatigue Abnormal mammogram of right breast Blood thinned due to long-term anticoagulant use GERD (gastroesophageal reflux disease) CVA (cerebral vascular accident) Alteration in vision Hypercholesterolemia Home Medications ???Medication ???Instructions ???Recorded ???Last Taken ???Type fluticasone propionate 50 50 mcg intranasal DAILY PRN PRN 01/10/22 History mcg/actuation nasal ALLERGIES spray,suspension (Flonase Allergy Relief) losartan 50 mg tablet 50 mg PO DAILY BP 01/10/22 5 History metoprolol succinate 100 mg 100 mg (more content not included)... Normal [facility] 12 Lead EKGon 08-30-2024 12 Lead EKG [facility] Cardiovascular Services [address] [place] [address] 12 Lead EKG 08/30/24 0806 MR#: [id number] Acct: [id number] Name: CASE,ANABELLA HILARIO Rep #: [id number] : 1950 73 From: Noble Gloria MD Attending Dr: Dr. Michele Roach MD Status: PRE [facility] Ordering Dr: Reynaldo Ely MD Date: 08/30/24 [place] [facility] [place] Sex: F C Admitted: Test Reason : PREOP Blood Pressure : */* mmHG Vent. Rate : 68 BPM Atrial Rate : 68 BPM P-R Int : 188 ms QRS Dur : 76 ms QT Int : 396 ms P-R-T Axes : 57 28 91 degrees QTcB Int : 421 ms Normal sinus rhythm Inferior infarct , age undetermined Abnormal ECG Confirmed by NOBLE GLORIA MD ([id number]), editorial cartoonist REGINALD HARO ([id number]) on 08/31/2024 6:03:53 AM Referred By: Michele Roach Confirmed By: NOBLE GLORIA MD 08/31/24 0603 Date Noble Gloria MD CC: Dr. Stefani Ball MD; Dr. Reynaldo Ely MD; Dr. Michele Roach MD Signed Normal [facility] Anion gap in Serum or Plasma Ordered By: Reynaldo Ely on 08-30-2024 Anion gap [Moles/Vol] 12 mmol/L 08-25 [facility] BUN/creatinine ratioOrdered By: Reynaldo Ely on 08-30-2024 Urea nitrogen/Creatinine [Mass ratio] 11.4 mg/mg 01-30 [facility] Basic Metabolic Profile (BMP )on 08-30-2024 BUN/CRE 11.4 RATIO Normal 01-30 [facility] Comment on above: Performed By: #### L 500.2500, L100.0500 ####[facility] [address] [place], [address] Calcium [Mass/Vol] 10.0 mg/dL Normal 7.6-11.0 [facility] Comment on above: Performed By: #### L 500.2500, L100.0500 ####[facility] [address] [place], [address] Chloride [Moles/Vol] 108 mmol/L Normal 98-108 [facility] Comment on above: Performed By: #### L 500.2500, L100.0500 ####[facility] [address] [place], [address] CO2 [Moles/Vol] 21.1 mmol/L Normal 21.0-32.0 [facility] Comment on above: Performed By: #### L 500.2500, L100.0500 ####[facility] [address] [place], [address] Creatinine [Mass/Vol] 1.11 mg/dL Normal 0.70-1.20 [facility] Comment on above: Performed By: #### L 500.2500, L100.0500 ####[facility] [address] [place], [address] GAP 12 Normal 5-15 [facility] Comment on above: Performed By: #### L 500.2500, L100.0500 ####[facility] [address] [place], [address] GFR/1.73 sq M.predicted among non-blacks MDRD (S/P/Bld) [Vol rate/Area] 53 mL/min/{1.73_m2} Low >60 [facility] Comment on above: Result Comment: mL/m in/1.73m2 CKD-EPI Creatinine Equation (2020) Performed By: #### L 500.2500, L100.0500 ####[facility] [address] [place], [address] Glucose [Mass/Vol] 111 mg/dL High 70-99 [facility] Comment on above: Performed By: #### L 500.2500, L100.0500 ####[facility] [address] [place], [address] Potassium [Moles/Vol] 4.0 mmol/L Normal 3.3-5.1 [facility] Comment on above: Performed By: #### L 500.2500, L100.0500 ####[facility] [address] [place], [address] Sodium [Moles/Vol] 142 mmol/L Normal 133-145 [facility] Comment on above: Performed By: #### L 500.2500, L100.0500 ####[facility] [address] [place], [address] Urea nitrogen [Mass/Vol] 13 mg/dL Normal 4-19 [facility] Comment on above: Performed By: #### L 500.2500, L100.0500 ####[facility] [address] [place], [address] Breast imaging reportOrdered By: Nishant Lim on 08-30-2024 Study report [facility] Imaging Services [address] [place] [address] SCRN MAMM (CAD)W/APURVA BILAT MR#: [id number] Acct: [id number] Name: CASEANABELLA Rep #: [id number] : 1950 F 73 From: Joey Lim MD PCP: Dr. Stefani Ball MD Status: REG CLI Study:SCRN MAMM (CAD)W/APURVA BILAT Date of Exa m: 08/30/24 Exam# [id number] Ordering Dr: Chelsea Chen TRAILER PARK MANAGER TRAILER PARK MANAGER-C EXAM: SCRN MAMM (CAD)W/APURVA BILAT DATE: 08/30/2024 CLINICAL HISTORY: F, Age 73 y/o , SCREENING No family history. BREAST CANCER RISK ASSESSMENT: Not assessed. TECHNIQUE: Bilateral screening digital breast tomosynthesis with 2D and 3D images. Computeraided detection. COMPARISON: Prior exam(s) dated August 24, 2023.. FINDINGS: TISSUE DENSITY: The breast tissue is extremely dense which lowers the sensitivity of mammography. Bilateral Breast Mammographic Findings: No significant masses, calcifications or other abnormalities are identified. Once again, a tissue clip marker is seen in the upper anterior lateral aspect of the right breast. A loop recording device is seen along the medial aspect of the left breast. No suspicious masses, areas of developing architectural distortion, or suspicious calcifications. There has been no significant interval change. BI/SCRN MAMM (CAD)W/APURVA BILAT IMPRESSION: OVERALL FINAL ASSESSMENT: BIRADS 2 BENIGN FINDING RECOMMENDATION: Routine annual follow-up in 1 Year A letter with findings and recommendations will be mailed to the patient. Reading Location: [facility] CC: Chelsea Chen; Dr. Stefani Ball MD ~ Pork Cutlet Maker: Signed [facility] CBC-Complete Blood Cnt No Di ffon 08-30-2024 Erythrocyte distribution width (RBC) [Ratio] 14.0 % Normal 11.6-14.6 [facility] Comment on above: Performed By: #### L 500.2500, L100.0500 ####[facility] [address] [place], [place], [id number] Hematocrit (Bld) [Volume fraction] 36.3 % Low 37-47 [facility] Comment on above: Performed By: #### L 500.2500, L100.0500 ####[facility] [address] [facility] [place], [place], [id number] Hemoglobin (Bld) [Mass/Vol] 11.7 g/dL Low 12.0-15.0 [facility] Comment on above: Performed By: #### L 500.2500, L100.0500 ####[facility] [address] [place], [address] MCH (RBC) [Entitic mass] 29.0 pg Normal 27.0-32.0 [facility] Comment on above: Performed By: #### L 500.2500, L100.0500 ####[facility] [address] [place], [address] MCHC (RBC) [Mass/Vol] 32.2 g/dL Normal 32-36 [facility] Comment on above: Performed By: #### L 500.2500, L100.0500 ####[facility] [address] [place], [address] MCV (RBC) [Entitic vol] 90.1 fL Normal 81-99 [facility] Comment on above: Performed By: #### L 500.2500, L100.0500 ####[facility] [address] [place], [address] Platelet mean volume (Bld) [Entitic vol] 11.1 fL Normal 6.2-12.0 [facility] Comment on above: Performed By: #### L 500.2500, L100.0500 ####[facility] [address] [place], [address] Platelets (Bld) [#/Vol] 271 10*3/uL Normal 150-450 [facility] Comment on above: Performed By: #### L 500.2500, L100.0500 ####[facility] [address] [place], [address] RBC (Bld) [#/Vol] 4.03 10*6/uL Low 4.2-5.4 [facility] Comment on above: Performed By: #### L 500.2500, L100.0500 ####[facility] [address] [place], [address] RDW SD 46.3 fl High 35.1-43.9 [facility] Comment on above: Performed By: #### L 500.2500, L100.0500 ####[facility] [address] [place], [address] WBC (Bld) [#/Vol] 9.7 10*3/uL Normal 4.4-11.0 [facility] Comment on above: Performed By: #### L 500.2500, L100.0500 ####[facility] [address] [place], [address] Carbon dioxide, total [Moles /volume] in Central venous bloodOrdered By: Reynaldo Ely on 08-30-2024 CO2 [Moles/Vol] 21.1 mmol/L 21.0-32.0 [facility] Chloride assayOrdered By: Jamel Ely on 08-30-2024 Chloride [Moles/Vol] 108 mmol/L 98-108 [facility] Dexa Bone Density Studyon Dexa Bone Density Study [facility] Imaging Services [address] [place], [place] [address] Dexa Bone Density Study MR#: [id number] Acct: [id number] Name: ANABELLA SALVADOR Rep #: [id number] : 1950 F 73 From: Nishant wray MD PCP: Dr. Stefani Ball MD Status: REG CLI Study: Dexa Bone Density Study Date of Exam: 08/30/24 Exam# [id number] Ordering Dr: Chelsea Chen TRAILER PARK MANAGER TRAILER PARK MANAGER -C PROCEDURE: DEXA BONE DENSITY STUDY 08/30/2024 REASON FOR EXAM: F, age 73 y/o . Postmenopausal. TECHNIQUE: DXA scan of sites with data reported below. REFERENCE LINKS: ISCD Adult Positions COMPARISON: Prior study dated June 09, 2018. FINDINGS: BMD and T-SCORES Lumbar spine: 1.151 g/cm2, T-score 0.9 Levels: L1 through L4 Change from prior: Loss of 7.7%. Left femoral neck: 0.962 g/cm2, T-score 1.0 Femoral neck comparison data not recommended for monitoring change. Left total hip: 1.1 no for g/cm2, T-score 1.3 Change from prior: Loss of 1.1%. Right femoral neck: 0.887 g/cm2, T-score 0.3 Femoral neck comparison data not recommended for monitoring change. Right total hip: 1.099 g/cm2, T-score 1.3 Change from prior: Loss of 1.9%. The World Health Organization has defined the following categories based on bone density: Normal bone density: T-score equal to or greater than -1.0 Osteopenia: T-score between -1.0 and -2.5 Osteoporosis: T-score equal to or less than -2.5 The patient does meet the pharmacological treatment recommendations for prevention of osteoporosis. BD/Dexa Bone Density Study IMPRESSION: NORMAL T-SCORES. Recommend follow-up as clinically warranted. Reading Location: [place] [address] CC: Chelsea Chen; Dr. Stefani Ball MD Pork Cutlet Maker: Signed Normal [facility] Erythrocyte distribution wid th ratioOrdered By: Reynaldo Ely on 08-30-2024 Erythrocyte distribution width (RBC) [Ratio] 14.0 % 11.6-14.6 [facility] Erythrocyte distribution wid th standard deviationOrdered By: Reynaldo Ely on 08-30-2024 Erythrocyte distribution width (RBC) [Ratio] 46.3 fl High 35.1-43.9 [facility] Glomerular filtration rate ( GFR) estimation/1.73 sq m using serum, plasma, or whole bOrdered By: Reynaldo Ely on 08-30-2024 GFR/1.73 sq M.predicted among non-blacks MDRD (S/P/Bld) [Vol rate/Area] 53 mL/min/{1.73_m2} Low >60 [facility] Comment on above: mL/min/1.73m2 CKD-EP I Creatinine Equation (2020) Hematocrit Auto (Bld) [Volum e fraction]Ordered By: Reynaldo Ely on 08-30-2024 Hematocrit (Bld) [Volume fraction] 36.3 % Low 37-47 [facility] Hemoglobin measurementOrdere d By: Reynaldo Ely on 08-30-2024 Hemoglobin (Bld) [Mass/Vol] 11.7 g/dL Low 12.0-15.0 [facility] MCV (mean corpuscular volume ) determinationOrdered By: Reynaldo Ely on 08-30-2024 MCV (RBC) [Entitic vol] 90.1 fL 81-99 [facility] Mean corpuscular hemoglobin (MCH) determinationOrdered By: Reynaldo Ely on 08-30-2024 MCH (RBC) [Entitic mass] 29.0 pg 27.0-32.0 [facility] Mean corpuscular hemoglobin concentration (MCHC) determinationOrdered By: Reynaldo Ely on 08-30-2024 MCHC (RBC) [Mass/Vol] 32.2 g/dL 32-36 [facility] Mean platelet volume determi nationOrdered By: Reynaldo Ely on 08-30-2024 Platelet mean volume (Bld) [Entitic vol] 11.1 fL 6.2-12.0 [facility] Platelet countOrdered By: Jamel Ely on 08-30-2024 Platelets (Bld) [#/Vol] 271 10*3/uL 150-450 [facility] Potassium measurement (mass/ volume)Ordered By: Reynaldo Ely on 08-30-2024 Potassium (Unsp spec) [Mass/Vol] 4.0 mmol/L 3.3-5.1 [facility] RBC Auto (Bld) [#/Vol]Ordere d By: Reynaldo Ely on 08-30-2024 RBC (Bld) [#/Vol] 4.03 10*6/uL Low 4.2-5.4 [facility] SCRN MAMM (CAD)W/APURVA BILATo n 08-30-2024 SCRN MAMM (CAD)W/APURVA BILAT [facility] Imaging Services [address] [place] [address] ( SCRN MAMM (CAD)W/APURVA BILAT MR#: [id number] Acct: [id number] Name: ANABELLA SALVADOR Rep #: [id number] : 1950 F 73 From: Nishant wray MD PCP: Dr. Stefani Ball MD Status: REG CLI Study: SCRN MAMM (CAD)W/APURVA BILAT Date of Exam: 08/12 Exam# [id number] Ordering Dr: Chelsea Chen NP, NP EXAM: SCRN MAMM (CAD)W/APURVA BILAT DATE: 08/30/2024 CLINICAL HISTORY: F, Age 73 y/o , SCREENING No family history. BREAST CANCER RISK ASSESSMENT: Not assessed. TECHNIQUE: Bilateral screening digital breast tomosynthesis with 2D and 3D images. Computer aided detection. COMPARISON: Prior exam(s) dated August 24, 2023.. FINDINGS: TISSUE DENSITY: The breast tissue is extremely dense which lowers the sensitivity of mammography. Bilateral Breast Mammographic Findings: No significant masses, calcifications or other abnormalities are identified. Once again, a tissue clip marker is seen in the upper anterior lateral aspect of the right breast. A loop recording device is seen along the medial aspect of the left breast. No suspicious masses, areas of developing architectural distortion, or suspicious calcifications. There has been no significant interval change. BI/SCRN MAMM (CAD)W/APURVA BILAT IMPRESSION: OVERALL FINAL ASSESSMENT: BIRADS 2 BENIGN FINDING RECOMMENDATION: Routine annual follow-up in 1 Year A letter with findings and recommendations will be mailed to the patient. Reading Location: [place] [address] CC: Chelsea CAM Chen; Dr. Stefani Ball MD Pork Cutlet Maker: Signed Normal [facility] Serum creatinine measurement (mass/volume)Ordered By: Reynaldo Ely on 08-30-2024 Creatinine [Mass/Vol] 1.11 mg/dL 0.70-1.20 [facility] Serum glucose measurement (m ass/volume)Ordered By: Reynaldo Ely on 08-30-2024 Glucose [Mass/Vol] 111 mg/dL High 70-99 [facility] Serum or plasma calcium john urement (mass/volume)Ordered By: Reynaldo Ely on 08-30-2024 Calcium [Mass/Vol] 10.0 mg/dL 7.6-11.0 [facility] Serum or plasma urea nitroge n measurement (mass/volume)Ordered By: Reynaldo Ely on 08-30-2024 Urea nitrogen [Mass/Vol] 13 mg/dL 4-19 [facility] Sodium levelOrdered By: Claudio Ely on 08-30-2024 Sodium [Moles/Vol] 142 mmol/L 133-145 [facility] White blood cell (WBC) count Ordered By: Reynaldo Ely on 08-30-2024 WBC (Bld) [#/Vol] 9.7 10*3/uL 4.4-11.0 [facility] Surgery Visit Reporton 08-12 Surgery Visit Report [facility] [address] [place] [address] OFFICE VISIT Date of Service: 08/12/24 MR#: [id number] Acct: [id number] Name: ANABELLA SALVADOR Rep #: [id number] : 1950 Provider: Dr. Michele bryant MD Age/Sex: 73/F Location: [facility] Status: Signed Intake Vital Signs 07/04/24 11:24 08/04/24 10:58 08/12/24 08:28 Height 5 ft 3 in 5 ft 3 in 5 ft 3 in Weight: 167 lb 169 lb 2 oz BMI 29.5 29.9 BP 122/64 H 130/72 H Blood Pressure Location Lt brachial Rt brachial Position Sitting Sitting Respiration 15 18 Pulse 60 71 Pulse Source Monitor Monitor Temp 98.6 F 97.3 F L Temp Source Temporal Temporal Pulse Oximetry (%) 99 96 Oxygen Delivery Method room air room air Intake Visit Reasons: DISCUSS LAP LORA Chief Complaint: discuss lap lora Accompanied by: Is patient in pain?: No Allergies atorvastatin (From Lipitor) Allergy (Unknown, Verified 08/12/24 08:29) unknown lisinopril Allergy (Unknown, Verified 08/12/24 08:29) unknown simvastatin (From Zocor) Allergy (Unknown, Verified 08/12/24 08:29) unknown Sulfa (Sulfonamide Antibiotics) Allergy (Unknown, Verified 08/12/24 08:29) Headache, nausea propoxyphene napsylate (From Darvocet-N) Allergy (Verified 08/12/24 08:29) Unknown Medications ???Medication ???Instructions ???Recorded ???Confirmed ???Type fluticasone propionate 50 50 mcg intranasal DAILY PRN PRN 08/12/24 History mcg/actuation nasal ALLERGIES spray,suspension (Flonase Allergy Relief) losartan 50 mg tablet 50 mg PO DAILY BP 01/10/22 5 History metoprolol succinate 100 mg 100 mg PO DAILY BP 01/10/22 History tablet,extended release 24 hr multivitamin 1 tab PO DAILY 07/24/22 08/12/24 H istory aspirin 81 mg tablet,delayed 81 mg PO DAILY 09/03/22 08/12/24 H istory release (Adult Low Dose Aspirin) duloxetine 60 mg capsule,delayed 60 mg PO DAILY 09/03/22 08/12/24 H istory release glycopyrrolate 1 mg tablet 1 mg PO TID 09/03/22 08/12/24 Hist ory clopidogrel 75 mg tablet 75 mg PO DAILY #90 tabs 05/23/24 0 08/12/24 Rx folic acid 1 mg tablet 1 mg PO DAILY #90 tabs 05/23/24 Rx pregabalin 50 mg capsule 50 mg PO DAILY #90 caps 05/23/24 0 08/12/24 Rx topiramate 25 mg tablet 25 mg PO BID #180 tabs 05/23/24 Rx rosuvastatin 20 mg tablet 20 mg PO QHS #90 tabs 05/24/2406/07 Rx pantoprazole 40 mg tablet,delayed 40 mg PO QDAY 06/20/24 08/12/24 H istory release Have you fallen in the past year?: No PFSH Medical History Migraine headache Hypertension Epigastric pain Wears glasses Cancer Arthritis High cholesterol Gastric reflux Non-smoker Implantable loop recorder present History of echocardiogram Cardiology follow-up encounter Fatigue Abnormal mammogram of right breast Blood thinned due to long-term anticoagulant use GERD (gastroesophageal reflux disease) CVA (cerebral vascular accident) Alteration in vision Hypercholesterolemia Surgical History History of esophagogastroduodenoscopy (EGD) History of cardiac catheterization History of knee replacement procedure of left knee History of left heart catheterization (06/13/14) History of sinus surgery History of squamous cell carcinoma excision History of colonoscopy ( 2017) History of right breast biopsy History of back surgery Hx of cataract surgery H/O arthroscopic knee surgery H/O: hysterectomy Family History Mother Hypertension High cholesterol Grandmother CVA (cerebral vascular accident) Other Alcoholism Cancer Social History household members: spouse Smoking Status: Never smoker second hand exposure: No alcohol intake: never substance use type: does not use caffeine: Yes Type: coffee Number of servings: 1 what type of physical activity do you participate in: weight training and other frequency: 5-6 times per week meet/hinduism: Adventism seatbelt use: always HPI HPI HPI: Patient is a 73-year-old female who makes repeat consultation related to epigastric discomfort and hiatal hernia. She was last seen in the office on 06/20/2024. She presents today with her . Together they confirm that they have met with both neurology and ophthalmology. Both of these specialties agree that patient has had no progression of her neurologic issues and that her experiences represent chronic status. For her part, Mrs. Salvador denies any new visual difficulties. She, however, reports ongoing significant difficulty with reflux. She stat (more content not included)... Normal [facility] Office Visit Reporton 2024 Office Visit Report [facility] Services [address] [place] [address] OFFICE VISIT Date of Service: 08/04/24 MR#: [id number] Acct: [id number] Patient: ANABELLA SALVADOR Rep #: [id number] : 1950 Provider: Dr. Shiva nixon MD Age/Sex: 73/F Location: [facility] Status: Signed Intake Vital Signs 06/20/24 08:56 07/04/24 11:24 08/04/24 10:58 Height 5 ft 3 in 5 ft 3 in 5 ft 3 in Weight: 170 lb 172 lb 6 oz 167 lb BMI 30.1 30.5 29.5 BP 149/68 H 130/70 H 122/64 H Blood Pressure Location Rt brachial Lt brachial Lt brachial Position Sitting Sitting Sitting Respiration 18 17 15 Pulse 64 64 60 Pulse Source Monitor Monitor Monitor Temp 97.2 F L 98.4 F 98.6 F Temp Source Temporal Temporal Temporal Pulse Oximetry (%) 99 99 Oxygen Delivery Method room air room air Intake Visit Reasons: B12 inject Allergies atorvastatin (From Lipitor) Allergy (Unknown, Verified 06/20/24 08:57) unknown lisinopril Allergy (Unknown, Verified 06/20/24 08:57) unknown simvastatin (From Zocor) Allergy (Unknown, Verified 06/20/24 08:57) unknown Sulfa (Sulfonamide Antibiotics) Allergy (Unknown, Verified 06/20/24 08:57) Headache, nausea propoxyphene napsylate (From Darvocet-N) Allergy (Verified 06/20/24 08:57) Unknown Have you fallen in the past year?: No Office Meds cyanocobalamin (vitamin B-12) 1,000 mcg/mL injection solution Performing Provider: Shiva Perkins MD Performing Location: [facility] Administered by: Huong Deal on 08/04/24 11:07 Dose Route Admin Location Dispensed Lot Number Expiration Date [facility] Man ufacturer 1,500 mcg IM Left Deltoid 1.5 mL [id number] 07/11/26 18044-489-26 [employer] Comments: The patient presents for vitamin B12 injection for treatment of fatigue. She has fatigue. Her last B12 injection was of benefit for fatigue. The patient is awake and alert. Vitamin B12 1,500 IM was administered today. There were no complications. Assessment and Plan Assessment and Plan (1) Fatigue: Status: Acute Orders: Orders Vitamin B12 Today R53.83 - Other fatigue Clinical Quality Measures Falls Risk Screening/Assistive Devices Have you fallen in the past year?: No 08/04/24 1631 Date Shiva Perkins MD Cosigner Signature: Date (if applicable) CC: Normal [facility] Office Visit Reporton 2024 Office Visit Report [facility] [address] [place] [address] OFFICE VISIT Date of Service: 07/04/24 MR#: [id number] Acct: [id number] Patient: ANABELLA SALVADOR Rep #: [id number] : 1950 Provider: Dr. Shiva nixon MD Age/Sex: 73/F Location: [facility] Status: Signed Intake Vital Signs 05/23/24 10:27 06/20/24 08:56 07/04/24 11:24 Height 5 ft 3 in 5 ft 3 in 5 ft 3 in Weight: 172 lb 6 oz BMI 30.5 BP 130/70 H Blood Pressure Location Lt brachial Position Sitting Respiration 17 Pulse 64 Pulse Source Monitor Temp 98.4 F Temp Source Temporal Intake Visit Reasons: B12 inject Chief Complaint: discuss fundoplication Allergies atorvastatin (From Lipitor) Allergy (Unknown, Verified 06/20/24 08:57) unknown lisinopril Allergy (Unknown, Verified 06/20/24 08:57) unknown simvastatin (From Zocor) Allergy (Unknown, Verified 06/20/24 08:57) unknown Sulfa (Sulfonamide Antibiotics) Allergy (Unknown, Verified 06/20/24 08:57) Headache, nausea propoxyphene napsylate (From Darvocet-N) Allergy (Verified 06/20/24 08:57) Unknown Have you fallen in the past year?: No Office Meds cyanocobalamin (vitamin B-12) 1,000 mcg/mL injection solution Performing Provider: Shiva Perkins MD Performing Location: [facility] Administered by: Veronique Valerio on 07/04/24 11:03 Dose Route Admin Location Dispensed Lot Number Expiration Date [facility] Man ufacturer 1,500 mcg IM left deltoid 1.5 mL [id number] 07/11/26 93289-408-89 [employer] Comments: The patient presents for B12 injection for treatment of fatigue. She has fatigue. Her last B12 injection was of benefit for fatigue. The patient is awake and alert. B12 1500mcg IM was administered today. There were no complications. Assessment and Plan Assessment and Plan (1) Fatigue: Status: Acute Orders: Orders Vitamin B12 Today R53.83 - Other fatigue Clinical Quality Measures Falls Risk Screening/Assistive Devices Have you fallen in the past year?: No 07/04/24 1806 Date Shiva Quintero Signature: Date (if applicable) CC: Normal [facility] Surgery Visit Reporton 06-20 Surgery Visit Report [facility] [address] [place] [address]. [address] [place] [address] OFFICE VISIT Date of Service: 06/20/24 MR#: [id number] Acct: [id number] Name: CASEANABELLA Rep #: [id number] : 1950 Provider: Dr. Michele bryant MD Age/Sex: 73/F Location: [facility] Status: Signed Intake Vital Signs 06/02/24 08:57 06/20/24 08:56 Height 5 ft 3 in 5 ft 3 in Weight: 172 lb 170 lb BMI 30.4 30.1 BP 128/70 H 149/68 H Blood Pressure Location Lt brachial Rt brachial Position Sitting Sitting Respiration 17 18 Pulse 75 64 Pulse Source Monitor Temp 97.8 F 97.2 F L Temp Source Temporal Temporal Pulse Oximetry (%) 99 Oxygen Delivery Method room air Intake Visit Reasons: DISCUSS FUNDOPLICATION Chief Complaint: discuss fundoplication Accompanied by: Is patient in pain?: Yes Allergies atorvastatin (From Lipitor) Allergy (Unknown, Verified 06/20/24 08:57) unknown lisinopril Allergy (Unknown, Verified 06/20/24 08:57) unknown simvastatin (From Zocor) Allergy (Unknown, Verified 06/20/24 08:57) unknown Sulfa (Sulfonamide Antibiotics) Allergy (Unknown, Verified 06/20/24 08:57) Headache, nausea propoxyphene napsylate (From Darvocet-N) Allergy (Verified 06/20/24 08:57) Unknown Medications ???Medication ???Instructions ???Recorded ???Confirmed ???Type fluticasone propionate 50 50 mcg intranasal DAILY PRN PRN 06/20/24 History mcg/actuation nasal ALLERGIES spray,suspension (Flonase Allergy Relief) losartan 50 mg tablet 50 mg PO DAILY BP 01/10/22 5 History metoprolol succinate 100 mg 100 mg PO DAILY BP 01/10/22 History tablet,extended release 24 hr multivitamin 1 tab PO DAILY 07/24/22 06/20/24 H istory aspirin 81 mg tablet,delayed 81 mg PO DAILY 09/03/22 06/20/24 H istory release (Adult Low Dose Aspirin) duloxetine 60 mg capsule,delayed 60 mg PO DAILY 09/03/22 06/20/24 H istory release glycopyrrolate 1 mg tablet 1 mg PO TID 09/03/22 06/20/24 Hist ory clopidogrel 75 mg tablet 75 mg PO DAILY #90 tabs 05/23/24 0 06/20/24 Rx folic acid 1 mg tablet 1 mg PO DAILY #90 tabs 05/23/24 Rx pregabalin 50 mg capsule 50 mg PO DAILY #90 caps 05/23/24 0 06/20/24 Rx topiramate 25 mg tablet 25 mg PO BID #180 tabs 05/23/24 Rx rosuvastatin 20 mg tablet 20 mg PO QHS #90 tabs 05/24/2402/04 Rx pantoprazole 40 mg tablet,delayed 40 mg PO QDAY 06/20/24 06/20/24 H istory release Have you fallen in the past year?: No PFSH Medical History Migraine headache Hypertension Epigastric pain Wears glasses Cancer Arthritis High cholesterol Gastric reflux Non-smoker Implantable loop recorder present History of echocardiogram Cardiology follow-up encounter Fatigue Abnormal mammogram of right breast Blood thinned due to long-term anticoagulant use GERD (gastroesophageal reflux disease) CVA (cerebral vascular accident) Alteration in vision Hypercholesterolemia Surgical History History of esophagogastroduodenoscopy (EGD) History of cardiac catheterization History of knee replacement procedure of left knee History of left heart catheterization (06/13/14) History of sinus surgery History of squamous cell carcinoma excision History of colonoscopy ( 2017) History of right breast biopsy History of back surgery Hx of cataract surgery H/O arthroscopic knee surgery H/O: hysterectomy Family History Mother Hypertension High cholesterol Grandmother CVA (cerebral vascular accident) Other Alcoholism Cancer Social History household members: spouse Smoking Status: Never smoker second hand exposure: No alcohol intake: never substance use type: does not use caffeine: Yes Type: coffee Number of servings: 1 what type of physical activity do you participate in: weight training and other frequency: 5-6 times per week meet/hinduism: Adventism seatbelt use: always HPI HPI HPI: Patient is a 73-year-old female who makes repeat consultation related to epigastric discomfort. She was last seen in the office on 05/02/2024 but in the interval since then and now she underwent EGD and colonoscopy with me on 05/18/2024. She presents today with her to review the results of this workup and some interval manometry and barium swallow testing that was ordered. She initially denies any significant health updates but comments about how she had a particularly rough night last evening from her reflux disease. She concluded that it was related to the consumption of a [place] pe (more content not included)... Normal [facility] Magnetic resonance imaging r eportOrdered By: Jakub Staples on 06-13-2024 Study report [facility] Imaging Services [address] [place], [place] [address] Brain without Contrast MR#: [id number] Acct: [id number] Name: CASEANABELLA Rep #: [id number] : 1950 F 73 From: Kayla Staples MD PCP: Dr. Stefani Ball MD Status: REG CLI Study:Brain without Contrast Date of Exam: 06/11/24 Exam# [id number] Ordering Dr: Shiva Perkins MD PROCEDURE: BRAIN WITHOUT CONTRAST REASON FOR EXAM: History of CVA; possible recurrent CVA (memory loss; aphasis) TECHNIQUE: Multiplanar, multisequence MRI of the brain was performed without none intravenous gadolinium-based contrast. CONTRAST: None COMPARISON: 08/11/2022 FINDINGS: Redemonstrated remote left occipital infarct with ex vacuo dilatation of the occipital horn of the left lateral ventricle. There is no acute infarct, definite intracranial hemorrhage, or solid mass. Mild cerebral volume loss and moderate patchy supratentorial white matter signal abnormalities, nonspecific but likely to reflect chronic microvascular ischemic changes. The brainstem, posterior fossa and cervicomedullary junction are unremarkable. Bilateral cataract surgery. Scalp, calvarium, and paranasal sinuses are grossly unremarkable. Unremarkable major intracranial flow voids. MRI/Brain without Contrast IMPRESSION: 1. No acute intracranial findings. Redemonstrated remote left occipital infarct. If there is persistent concern, recommend noncontrast CT as this is more sensitive for small volumes of intracranial hemorrhage. 2. Additional description as above. Reading Location: [id number] CC: Dr. Stefani Ball MD; Dr. Shiva Perkins MD ~ Pork Cutlet Maker: Signed [facility] Brain without Contraston Brain without Contrast [facility] Imaging Services [address] [place] [address] [id number] Brain without Contrast MR#: [id number] Acct: [id number] Name: CASEANABELLA Rep #: [id number] : 1950 F 73 From: Jakub Staples MD PCP: Dr. Stefani Ball MD Status: REG CLI Study: Brain without Contrast Date of Exam: 06/11/24 Exam# [id number] Ordering Dr: Shiva Perkins MD PROCEDURE: BRAIN WITHOUT CONTRAST REASON FOR EXAM: History of CVA; possible recurrent CVA (memory loss; aphasis) TECHNIQUE: Multiplanar, multisequence MRI of the brain was performed without none intravenous gadolinium-based contrast. CONTRAST: None COMPARISON: 08/11/2022 FINDINGS: Redemonstrated remote left occipital infarct with ex vacuo dilatation of the occipital horn of the left lateral ventricle. There is no acute infarct, definite intracranial hemorrhage, or solid mass. Mild cerebral volume loss and moderate patchy supratentorial white matter signal abnormalities, nonspecific but likely to reflect chronic microvascular ischemic changes. The brainstem, posterior fossa and cervicomedullary junction are unremarkable. Bilateral cataract surgery. Scalp, calvarium, and paranasal sinuses are grossly unremarkable. Unremarkable major intracranial flow voids. MRI/Brain without Contrast IMPRESSION: 1. No acute intracranial findings. Redemonstrated remote left occipital infarct. If there is persistent concern, recommend noncontrast CT as this is more sensitive for small volumes of intracranial hemorrhage. 2. Additional description as above. Reading Location: [facility] CC: Dr. Stefani Ball MD; Dr. Shiva Perkins MD Pork Cutlet Maker: Signed Normal [facility] Ferritin measurementOrdered By: Shiva Perkins on 06-02-2024 Ferritin [Mass/Vol] 34 ng/mL Normal 8-252 [facility] Comment on above: Performed By: #### L 503.6150, L503.6550 #### [facility] [address] [place], [place], [id number] (702) Iron measurement (mass/mass) Ordered By: Shiva Perkins on 06-02-2024 Iron [Mass/Vol] 53 ug/dL Normal 50-170 [facility] Comment on above: Performed By: #### L 503.6150, L503.6550 #### [facility] [address] [place], [place], [id number] (507) Iron (Unsp spec) [Mass/Mass] 53 ug/dL 50-170 [facility] Office Visit Reporton 2024 Office Visit Report [facility] [address] [place] [address] OFFICE VISIT Date of Service: 06/02/24 MR#: [id number] Acct: [id number] Patient: ANABELLA SALVADOR Rep #: [id number] : 1950 Provider: Dr. Shiva nixon MD Age/Sex: 73/F Location: [facility] Status: Signed Intake Vital Signs 05/23/24 10:27 06/02/24 08:57 Height 5 ft 3 in 5 ft 3 in Weight: 172 lb 172 lb BMI 30.4 30.4 BP 118/72 128/70 H Blood Pressure Location Rt brachial Lt brachial Position Sitting Sitting Respiration 15 17 Pulse 77 75 Temp 98.4 F 97.8 F Temp Source Temporal Temporal Pulse Oximetry (%) 98 Oxygen Delivery Method room air Intake Visit Reasons: B12 inject Chief Complaint: Allergies atorvastatin (From Lipitor) Allergy (Unknown, Verified 05/23/24 10:33) unknown lisinopril Allergy (Unknown, Verified 05/23/24 10:33) unknown simvastatin (From Zocor) Allergy (Unknown, Verified 05/23/24 10:33) unknown Sulfa (Sulfonamide Antibiotics) Allergy (Unknown, Verified 05/23/24 10:33) Headache, nausea propoxyphene napsylate (From Darvocet-N) Allergy (Verified 05/23/24 10:33) Unknown Have you fallen in the past year?: No Office Meds cyanocobalamin (vitamin B-12) 1,000 mcg/mL injection solution Performing Provider: Shiva Perkins MD Performing Location: [facility] Administered by: Veronique Valerio on 06/02/24 08:59 Dose Route Admin Location Dispensed Lot Number Expiration Date [facility] Man ufacturer 1,500 mcg IM left deltoid 1.5 mL [id number] 07/11/26 61602-735-60 [employer] Comments: Patient presents for B12 injection for treatment of fatigue. She has fatigue. Her last B12 injection was of benefit for fatigue. The patient is awake and alert. B12 1500mcg IM was administered today. Assessment and Plan Assessment and Plan (1) Fatigue: Status: Acute Orders: Orders Vitamin B12 Today R53.83 - Other fatigue Clinical Quality Measures Falls Risk Screening/Assistive Devices Have you fallen in the past year?: No 06/02/24 1641 Date Shiva ePrkins MD [facility] Signature: Date (if applicable) CC: Normal [facility] Esophagus Dual Contraston Esophagus Dual Contrast [facility] [address] [place], [place] [address] Esophagus Dual Contrast MR#: [id number] Acct: [id number] Name: ANABELLA SALVADOR Rep #: [id number] : 1950 F 73 From: Nishant wary MD PCP: Dr. Stefani Ball MD Status: [facility] CLI Study: Esophagus Dual Contrast Date of Exam: 05/23/24 Exam# [id number] Ordering Dr: Michele Roach MD EXAM: ESOPHAGUS DUAL CONTRAST CLINICAL HISTORY: Epigastric pain and gastroesophageal reflux. COMPARISON: None. TECHNIQUE: The patient ingested barium. Air contrast examination of the esophagus was obtained. The patient ingested a 12 mm tablet the barium. FINDINGS: Small sliding hiatal hernia with gastroesophageal reflux. Mild degree of tertiary contractions of the distal esophagus. The patient ingested a 12 mm tablet the barium without any difficulty. RAD/Esophagus Dual Contrast IMPRESSION: Small sliding hiatal hernia with gastroesophageal reflux. Mild degree of tertiary contractions of the distal esophagus. Reading Location: [facility] CC: Dr. Stefani Ball MD; Dr. Michele Roach MD Pork Cutlet Maker: Signed Normal [facility] Neurology Visit Reporton Neurology Visit Report [facility] [address], [address] [place] [id number] OFFICE VISIT Date of Service: 05/23/24 MR#: [id number] Acct: [id number] Name: ANABELLA SALVADOR Rep #: [id number] : 1950 Provider: Dr. Shiva nixon MD Age/Sex: 73/F Location: [facility] Status: Signed with Addenda ADDENDUM by Dr. Shiva Perkins MD on 07/05/24 at 1634 Addendum Addendum (07/05/2024): Head MRI (06/11/2024): COMPARISON: 08/11/2022 FINDINGS: Redemonstrated remote left occipital infarct with ex vacuo dilatation of the occipital horn of the left lateral ventricle. There is no acute infarct, definite intracranial hemorrhage, or solid mass. Mild cerebral volume loss and moderate patchy supratentorial white matter signal abnormalities, nonspecific but likely to reflect chronic microvascular ischemic changes. The brainstem, posterior fossa and cervicomedullary junction are unremarkable. Bilateral cataract surgery. Scalp, calvarium, and paranasal sinuses are grossly unremarkable. Unremarkable major intracranial flow voids. IMPRESSION: 1. No acute intracranial findings. Redemonstrated remote left occipital infarct. If there is persistent concern, recommend noncontrast CT as this is more sensitive for small volumes of intracranial hemorrhage. 2. Additional description as above. These images were reviewed on 07/05/2024. An old left occipital infarct is noted. Mild bilateral subcortical chronic small vessel ischemic disease is noted. No significant change is noted compared to her head MRI from 08/11/2022. 07/05/24 1634 Date Shiva Perkins MD cc: * Signed HPI [facility] Chief Complaint: Details: Interim History: Anabella returns for follow-up visit. She has a history of hyperlipidemia, gastroesophageal reflux disease and hypertension. In December 2021, she experienced acute onset visual field impairment. For a few seconds, she was unable to see objects before her and then subsequently began to experience fluctuating scintillations described as blurry spots, checkered scotoma pattern and color scintillations. She did not have associated numbness, weakness or gait difficulty. She had a headache. She noted having some word finding difficulty but did not have slurred speech or impaired comprehension. She had some memory difficulty. She did not seek medical attention that day. Two days later, she was evaluated by an as400 consultant and per the patient's report, was found to have a visual field deficit and was thought to have had a stroke (an official report is presently not available). The following day she presented to the hospital since her visual deficits did not improve and on evaluation was found to have an acute left occipital cortical infarct. Her EKG revealed normal sinus rhythm with ST and T wave abnormalities raising concern for lateral ischemia. Her cardiac echo revealed a possible patent foramen ovale. A carotid ultrasound revealed less than 50% stenosis of the internal carotid arteries bilaterally and this was corroborated by neck CTA. A head CTA revealed narrowing of the M1 segment of the left middle cerebral artery (greater than 70%) and M2 of the right middle cerebral artery (greater than 75%). She was on aspirin 81 mg daily and rosuvastatin 20 mg daily when her stroke occurred. Subsequently, clopidogrel was added and she is currently taking a combination of clopidogrel and aspirin 81 mg daily. Since this medication change, she has noticed easy bruising. Clopidogrel was then discontinued and aspirin was increased to 162mg daily however subsequently in July 2022 she had worsening of her visual impairment manifesting with increased visual field impairment in the right visual field over her baseline visual field impairment from her stroke in December 2021 and this persisted. 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 Clopidogrel was resumed and aspirin was reduced back to 81mg daily (these medications have been held within recent days due to recent endoscopy). Atorvastatin was increased to 40mg daily however this caused myalgia and atorvastatin was reduced to 20mg daily. She has a history of hot flashes and stated that clopidogrel somewhat worsened this symptom. She has not had further symptoms suggestive of cerebrovascular ischemia since July 2022. Her speech and memory have continued to improve. In 2023, she had a momentary episode of dysphasia; she did not seek medical attention for this. She saw a tooler and had a transesophageal echo in 2022 and she was found not to have an atrial septal defect. She had an implanted cardiac loop recorder placed in 2022. She does not have any history of symptomatic stroke prior to December 2021. She continues to have some word fi (more content not included)... Normal [facility] Colonoscopy Reporton 025 Colonoscopy Report [facility] Medical Records Department [address] [place] [address] Colonoscopy Report MR#: [id number] Acct: [id number] Name: CASE,ANABELLA HILARIO Rep #: [id number] : 1950 73 From: Michele Roach MD PCP: Dr. Stefani Ball MD Status:[facility] Patient Name: Anabella Salvador Procedure Date: 05/18/2024 12:57 PM Date of : 1950 Age: 73 Procedure: Colonoscopy Indications: High risk colon cancer surveillance: Personal history of colonic polyps Providers: Michele Roach MD Medicines: See the Anesthesia note for documentation of the administered medications Patient Profile: Refer to note in patient chart for documentation of history and physical. Last Colonoscopy: several years ago. Complications: No immediate complications. Estimated blood loss: None. Procedure: Pre-Anesthesia Assessment: - The heart rate, respiratory rate, oxygen saturations, blood pressure, adequacy of pulmonary ventilation, and response to care were monitored throughout the procedure. - The heart rate, respiratory rate, oxygen saturations, blood pressure, adequacy of pulmonary ventilation, and response to care were monitored throughout the procedure. After I obtained informed consent, the scope was passed under direct vision. Throughout the procedure, the patient's blood pressure, pulse, and oxygen saturations were monitored continuously. The colonoscope was introduced through the anus and advanced to the cecum, identified by the appendiceal orifice, ileocecal valve and palpation. The colonoscopy was performed without difficulty. The patient tolerated the procedure well. The quality of the bowel preparation was adequate to identify polyps greater than 5 mm in size. Scope In: 12:58:22 PM Scope Withdrawal Time 0 hours 10 minutes 10 seconds Scope Out: 1:16:27 PM Total Procedure Duration Time 0 hours 18 minutes 5 seconds Findings: The perianal and digital rectal examinations were normal. Pertinent negatives include normal sphincter tone. Internal hemorrhoids were found during retroflexion. The hemorrhoids were medium-sized and Grade I (internal hemorrhoids that do not prolapse). The exam was otherwise without abnormality on direct and retroflexion views. Impression: - Internal hemorrhoids. - The examination was otherwise normal on direct and retroflexion views. - No specimens collected. Recommendation: - Discharge patient to home (via wheelchair). - High fiber diet today. - No aspirin, ibuprofen, naproxen, or other non-steroidal anti-inflammatory drugs for 2 days after biopsy. - Repeat colonoscopy in 5 years for surveillance. - Telephone my office for study results in 1 week. Procedure Code(s): --- Professional --- G0105, Colorectal cancer screening; colonoscopy on individual at high risk Diagnosis Code(s): --- Professional --- Z86.010, Personal history of colonic polyps K64.0, First degree hemorrhoids CPT copyright 2021 [employer]. All rights reserved. The codes documented in this report are preliminary and upon emergency vehicle operations instructor review may be revised to meet current compliance requirements. Michele Roach MD 05/18/2024 1:37:27 PM This report has been signed electronically. Number of Addenda: 0 Note Initiated On: 05/18/2024 12:57 PM 05/18/24 1337 Date Michele Roach MD Cosigner Signature: Date (if indicated) CC: Dr. Stefani Ball MD; Dr. Michele Roach MD Date Dictated: 05/18/24 1257 Date Transcribed: Pork Cutlet Maker: ISABELLA Signed Normal [facility] EGD Reporton 05-18-2024 EGD Report [facility] Medical Records Department [address] [place] [address] EGD Report MR#: [id number] Acct: [id number] Name: CASE,ANABELLA HILARIO Rep #: [id number] : 1950 73 From: Michele Roach MD PCP: Dr. Stefani Ball MD Status:[facility] Patient Name: Anabella Case Procedure Date: 05/18/2024 12:06 PM Date of : 1950 Age: 73 Procedure: Upper GI endoscopy Indications: Gastro-esophageal reflux disease, retained hemostatic clip from previous EGD Providers: Michele Roach MD Medicines: See the Anesthesia note for documentation of the administered medications Patient Profile: Refer to note in patient chart for documentation of history and physical. Complications: No immediate complications. Estimated blood loss: Minimal. Procedure: Pre-Anesthesia Assessment: - The heart rate, respiratory rate, oxygen saturations, blood pressure, adequacy of pulmonary ventilation, and response to care were monitored throughout the procedure. After obtaining informed consent, the endoscope was passed under direct vision. Throughout the procedure, the patient's blood pressure, pulse, and oxygen saturations were monitored continuously. The Endoscope was introduced through the mouth, and advanced to the second part of duodenum. The upper GI endoscopy was accomplished without difficulty. The patient tolerated the procedure well. Scope In: 12:25:58 PM Scope Out: 12:53:11 PM Total Procedure Duration Time 0 hours 27 minutes 13 seconds Findings: No gross lesions were noted in the duodenal bulb, in the first portion of the duodenum and in the second portion of the duodenum. No biopsies or other specimens were collected for this exam. Localized mildly erythematous mucosa without bleeding was found in the gastric antrum. Biopsies were taken with a cold forceps for Helicobacter pylori testing. Estimated blood loss was minimal. Multiple 3 mm semi-pedunculated polyps with no bleeding and no stigmata of recent bleeding were found in the stomach. The polyp was removed with a hot snare. Resection and retrieval were complete. Estimated blood loss: none. prior hemostatic clip placement at polypectomy site, The polyp was removed with a hot snare. Resection and retrieval were complete. Estimated blood loss was minimal. A medium-sized hiatal hernia was present. No biopsies or other specimens were collected for this exam. The Z-line was regular and was found 35 cm from the incisors. Biopsies were taken with a cold forceps for histology. Estimated blood loss was minimal. The exam was otherwise without abnormality. Impression: - No gross lesions in the duodenal bulb, in the first portion of the duodenum and in the second portion of the duodenum. No specimens collected. - Erythematous mucosa in the antrum. Biopsied. - Multiple gastric polyps. Resected and retrieved. - Medium-sized hiatal hernia. No specimens collected. - Z-line regular, 35 cm from the incisors. Biopsied. - The examination was otherwise normal. Recommendation: - Discharge patient to home (via wheelchair). - Resume previous diet today. - No aspirin, ibuprofen, naproxen, or other non-steroidal anti-inflammatory drugs for 2 days after biopsy. - Resume Plavix (clopidogrel) at prior dose in 2 days. Refer to managing physician for further adjustment of therapy. - Await pathology results. - Telephone my office for pathology results in 1 week. Procedure Code(s): --- Professional --- 68098, Esophagogastroduodenoscopy , flexible, transoral; with removal of tumor(s), polyp(s), or other lesion(s) by snare technique 16162, 59, Esophagogastroduodenoscopy , flexible, transoral; with biopsy, single or multiple Diagnosis Code(s): --- Professional --- K31.89, Other diseases of stomach and duodenum K31.7, Polyp of stomach and duodenum K44.9, Diaphragmatic hernia without obstruction or gangrene K21.9, Gastro-esophageal reflux disease without esophagitis CPT copyright 2021 [employer]. All rights reserved. The codes documented in this report are preliminary and upon emergency vehicle operations instructor review may be revised to meet current compliance requirements. Michele Roach MD 05/18/2024 1:30:49 PM This report has been signed electronically. Number of Addenda: 0 Note Initiated On: 05/18/2024 12:06 PM 05/18/24 1331 Date Michele Roach MD Cosigner Signature: Date (if indicated) CC: Dr. Stefani Ball MD; Dr. Michele oRach MD Date Dictated: 05/18/24 1206 Date Transcribed: Pork Cutlet Maker: ISABELLA Signed [facility] H Pylori (initial)on 025 H Pylori (initial) ------ Patient Age/Sex Location Account Attending Physician CASEANABELLA 73/F EN [id number] Dr. Michele Roach MD Specimen: [id number] Received: 05/19/24 Status: AL Manciaav Num: [id number] Spec Type: IMMUNO Subm Dr: Dr. Michele Roach MD PHYSICIAN INSTITUTION [place] [address] SPECIMEN INFORMATION: Tissue Source: A- Gastric antrum biopsy Clinical Info: Hiatal hernia with GERD, epigastric pain, personal history of colonic polyps, family history of colon cancer in mother, constipation, hematochezia Specimen Number: [id number] CPT code: 68235 METHODOLOGY: Deparaffinized sections of prefer/formalin-fixed tissue or PAP/DQ stained slides are incubated with monoclonal/polyclonal antibodies/oligonucleotide probes. Localization is made via biotin free immunoperoxidase method. Appropriate controls are performed and reacted as expected. Results on target cell population are indicated in the following table: RESULTS: ANTIBODY / CLONE RESULT Block AH Pylori (polyclonal) negative These tests were developed and their performance characteristics determined by [facility]. They may not have been cleared or approved by the U.S. Food and Drug Administration. The FDA has determined that such clearance or approval is not necessary. The above immunohistochemical/dualIS H markers are ordered and reviewed by the Pathologist. INTERPRETATION: A. Gastric antrum, biopsy: Negative for Helicobacter pylori organisms. 05/20/2024 Signed (signature on file) Dr. Marco Antonio Gutierrez MD 05/20/24 1203 Normal [facility] Comment on above: Performed By: #### P H.PYLORI #### [facility] [address] [place], [address] MR/POSTOP.[facility] 05-18-2024 MR/POSTOP.[facility] Medical Records Department [address] [place] [address] Anesthesia Postop Eval I 05/18/24 141 MR#: [id number] Acct: [id number] Name: CASEANABELLA Rep #: [id number] : 1950 73 From: Yoshi Gabriel MD PCP: Dr. Stefani Ball MD Status:[facility] Y Race: C Location: EN Anesthesia: Postop Eval I Current Vital Signs Temperature: 99.3 F Pulse Rate: 75 Blood Pressure: 127/64 Respiratory Rate: 16 Pulse Ox: 97 Oxygen Delivery Method: Room Air Assessment Airway patent: Yes Spontaneous unlabored respirations: Yes nausea: No Vomiting: No Anesthesia Complication: No Fluid Hydration Crystalloid volume administer (ml): 10 Total IV fluid infused: 10 Progress Note Anesthesia document: Postop Eval 1 completed: Yes 05/18/241413 Date Yoshi Gabriel MD Cosigner Signature: Date CC: Signed Normal [facility] MR/[id number] 05-18-2024 MR/POSTOPAN2 [facility] Medical Records Department [address] [place] [address] Anesthesia Postop Eval II 05/18/24 1414 MR#: [id number] Acct: [id number] Name: CASE,ANABELLA HILARIO Rep #: [id number] : 1950 73 From: Yoshi Gabriel MD PCP: Dr. Stefani Ball MD Status:[facility] Y Race: C Location: EN Anesthesia Postop Eval I Sum Postop Eval Completion status Anesthesia document: Postop Eval 1 completed: Yes Anesthesia Postop Eval I Summary Anesthesia Postop Eval I Summary: Anesthesia Postop Eval I: Assessment Summary Airway patent Yes 05/18/24 14:14 Spontaneous unlabored Yes 05/18/24 14:14 respirations Mental status nausea No 05/18/24 14:14 Vomiting No 05/18/24 14:14 Anesthesia Postop Eval I: Fluid Summary Crystalloid volume administer 10 05/18/24 14:14 (ml) Colloids volume administered ( ml) Blood Product volume administered (ml) Total IV fluid infused 10 05/18/24 14:14 Anesthesia Postop Eval I: Summary Notes Anesthesia Complication No 05/18/24 14:14 Anesthesia Complication Comment: Post-operative progress note Anesthesia: Postop Eval II Evaluation Mental status: Awake Pain Level: 0 nausea: No Vomiting: No 05/18/24 1414 Date Yoshi Gabriel MD Cosigner Signature: Date CC: Signed Normal [facility] Surgery Specimen Level Evette 05-18-2024 Surgery Specimen Level IV Patient Age/Sex Location Account Attending Physician CASEANABELLA 73/F EN [id number] Dr. Michele Roach MD Specimen: [id number] Received: 05/18/24 Status: AL Antonio Num: [id number] Spec Type: EGD BIOPSY Subm Dr: Dr. Michele Roach MD HEADER OPERATION: Colonoscopy, EGD with gastric clip removal, polypectomy PRE-OP DIAGNOSIS: Hiatal hernia with GERD, epigastric pain, personal history of colonic polyps, family history of colon cancer in mother, hematochezia TISSUE SUBMITTED: A- Gastric antrum biopsy, B- Greater curvature polyps, C- Distal esophagus biopsy MICROSCOPIC DIAGNOSIS A. Gastric antrum, biopsy: Mild gastritis. See microscopic description and comment. B. Greater curvature polyps, biopsy: Fragments of fundic gland polyp. C. Distal esophagus, biopsy: Fragments of benign squamous epithelium. . 05/20/2024 COMMENT A. The results of immunohistochemistry for Helicobacter pylori will be reported separately ([id number]). MICROSCOPIC DESCRIPTION Slides are reviewed. A. The specimen shows fragments of gastric mucosa with chronic inflammatory cell infiltrates in the lamina propria consisting of lymphocytes and plasma cells, consistent with mild chronic gastritis. GROSS DESCRIPTION A. Received in fixative is one container labeled with the patient's name and designated Gastric antrum biopsy. The specimen consists of two irregular fragments of light larson soft tissue that in aggregate measure 0.5 x 0.3 x 0.2 cm. The specimen is totally submitted in one cassette. B. Received in fixative is one container labeled with the patient's name and designated Greater curvature polyps. The specimen consists of multiple irregular fragments of light larson soft tissue that in aggregate measure 1 x 0.3 x 0.2 cm. The specimen is totally submitted in one cassette. C. Received in fixative is one container labeled with the patient's name and designated Distal esophagus biopsy. The specimen consists of multiple irregular fragments of light larson soft tissue that measuring in aggregate 0.3 x 0.3 x 0.2 cm. The specimen is totally Patient Age/Sex Location Account Attending Physician MODESTOANABELLAAN [id number] Michele Roach MD submitted in one cassette. MS/mr 05/19/2024 TC:5 CPT:79172p5 Patient Age/Sex Location Account Attending Physician ANABELLA SALVADOR 73 [id number] Michele Roach MD Signed (signature on file) Dr. Marco Antonio Gutierrez MD 05/20/24 1138 Normal [facility] Comment on above: Performed By: #### P SUIV ####[facility] [address] [place], [place], [address] MR/PATSilva 05-16-2024 MR/PAT.DENNIS [facility] Medical Records Department [address] [place] [address] PAT - Anesthesia 05/16/24 1300 MR#: [id number] Acct: [id number] Name: CASEANABELLA Rep #: [id number] : 1950 73 From: Yoshi Gabriel MD PCP: Dr. Stefani Ball MD Status:PRE [facility] [place] Race: C Location: EN Pre-Assessment Diagnosis/Proposed Procedure Planned Operative Procedure(s): EGD/CSCOPE Anesthesia History Anesthesia History - hand welt butter: Anesthesia History - hand welt butter Hx Hospitalization No 05/16/24 12:22 Any Problems With Anesthesia Yes: SLOW TO AWAKEN/N,V 05/16/24 12:22 Cholinesterase deficiency No 05/16/24 12:22 You/Your Family Experience No 05/16/24 12:22 fever (hyperthermia) with Relationship Recent Exposure to Contagious No 08/06/23 06:44 Disease Does patient have nerve No 05/16/24 12:22 stimulator Patient instructed to have device shut off --Does patient have Pacemaker or ICD? When Was Last Pacemaker Check QUESTION #4 FULL TEXT: You/Your Family Experience fever (hyperthermia) with Anesthesia Last Oral Intake Last Oral intake: Last Oral Intake NPO since Meds taken in AM with sips of water? Meds patient instructed to take am of surgery PONV PONV - hand welt butter: PONV - hand welt butter Female Yes 05/16/24 12:22 HX of Motion Sickness Yes 05/16/24 12:22 HX of N/V After Surgery Yes 05/16/24 12:22 Non-Smoker Yes 05/16/24 12:22 Duration of Surgery greater No 05/16/24 12:22 than 60 minutes Number of Risk Factors 4 05/16/24 12:22 PONV Score Severe Risk 05/16/24 12:22 Height Weight Height Weight: Anesthesia: Height Weight Height 5 ft 3 in 05/02/24 08:25 Respiratory Assessment Respiratory Assessment - hand welt butter: Respiratory Tract Infection Hx - hand welt butter Hx Respiratory Tract Infection No 05/16/24 12:22 STOP Sleep Apnea STOP Sleep Apnea - hand welt butter: STOP Sleep Apnea - hand welt butter Hx Hypertension Yes: CONTROLLED WITH MEDS 05/16/24 12:22 Hx Sleep Apnea No 05/16/24 12:22 CPAP BIPAP Do you snore loudly (louder No 05/16/24 12:22 than talking or can be heard Do you often feel tired/ No 05/16/24 12:22 fatigued/ sleepy during daytime? Has anyone observed you stop No 05/16/24 12:22 breathing during sleep? STOP Results Negative 05/16/24 12:22 QUESTION #5 FULL TEXT : Do you snore loudly (louder than talking or can be heard through closed doors)? Tobacco Use History Tobacco Use History - hand welt butter: Tobacco Use History - hand welt butter Tobacco Use Smoking Status Never smoker 05/16/24 12:22 Hx Tobacco Use No 05/16/24 12:22 Years Smoking Packs Smoked per Day Smoking Cessation Date was within the last 15 years Hx Smoking Cessation Date Hx Smoking Cessation No 05/16/24 12:22 Counseling Hematologic Medial History Hematologic Hx - hand welt butter: Hematologic Medical Hx - information writer Hx of Blood Transfusion No 05/16/24 12:22 Hx of Transfusion in last 3 No 05/16/24 12:22 Months Date of Last Transfusion (if within last 3 months) Ever experience any problems No 05/16/24 12:22 with transfusion(s)? Specify any problems Hx of Preganancy in last 3 No 05/16/24 12:22 Months Nurse Filling Out Transfusion DSCHRIBER 05/16/24 12:22 Questions: Date: 05/16/24 05/16/24 12:22 Time: 12:24 05/16/24 12:22 Patient unable to answer at this time (ie. confused, unrespo /Reproduction History /Reproductive History - hand welt butter: /Reproductive Hx- hand welt butter Hx Now No 05/16/24 12:22 Gestational Age (in weeks): EDC: Hx Hx Para Hx Section SAB No 05/16/24 12:22 PFS Medical History (Updated 05/16/24 @ 12:34 by Faina Holguin) Migraine headache Hypertension Epigastric pain Wears glasses Cancer Arthritis High cholesterol Gastric reflux Non-smoker Implantable loop recorder present History of echocardiogram Cardiology follow-up encounter Fatigue Abnormal mammogram of right breast Blood thinned due to long-term anticoagulant use GERD (gastroesophageal reflux disease) CVA (cerebral vascular accident) Alteration in vision Hypercholesterolemia Home Medications ???Medication ???Instructions ???Recorded ???Last Taken ???Type fluticasone propionate 50 50 mcg intranasal DAILY PRN PRN 01/10/22 History mcg/actuation nasal ALLERGIES spray,suspension (Flonase Allergy Relief) losartan 50 mg tablet 50 mg PO DAILY BP 01/10/2208/04/2 4 History metoprolol succinate 100 mg 100 mg PO DAILY BP 01/10/22 History tablet,extended (more content not included)... Normal [facility] Surgery Visit Reporton 05-02 Surgery Visit Report [facility] [address] [place] [address]. [address] [place] [address] OFFICE VISIT Date of Service: 05/02/24 MR#: [id number] Acct: [id number] Name: ANABELLA SALVADOR Rep #: [id number] : 1950 Provider: Dr. Michele bryant MD Age/Sex: 73/F Location: [facility] Status: Signed Intake Vital Signs 03/15/24 13:14 04/28/24 10:09 05/02/24 08:25 Height 5 ft 3 in 5 ft 3 in 5 ft 3 in Weight: 175 lb BMI 30.9 BP 127/73 H Blood Pressure Location Rt brachial Position Sitting Respiration 18 Pulse 81 Pulse Source Monitor Temp 97.2 F L Temp Source Temporal Pulse Oximetry (%) 92 Intake Visit Reasons: discuss surgery Chief Complaint: discuss surgery Is patient in pain?: No Allergies atorvastatin (From Lipitor) Allergy (Unknown, Verified 05/02/24 08:26) unknown lisinopril Allergy (Unknown, Verified 05/02/24 08:26) unknown simvastatin (From Zocor) Allergy (Unknown, Verified 05/02/24 08:26) unknown Sulfa (Sulfonamide Antibiotics) Allergy (Unknown, Verified 05/02/24 08:26) Headache, nausea propoxyphene napsylate (From Darvocet-N) Allergy (Verified 05/02/24 08:26) Unknown Medications ???Medication ???Instructions ???Recorded ???Confirmed ???Type fluticasone propionate 50 50 mcg intranasal DAILY PRN PRN 01/10/22 05/02/24 History mcg/actuation nasal ALLERGIES spray,suspension (Flonase Allergy Relief) losartan 50 mg tablet 50 mg PO DAILY BP 01/10/22 05/02/24 History metoprolol succinate 100 mg 100 mg PO DAILY BP 01/10/22 05/02/24 History tablet,extended release 24 hr multivitamin 1 tab PO DAILY 07/24/22 05/02/24 History aspirin 81 mg tablet,delayed 81 mg PO DAILY 09/03/22 05/02/24 History release (Adult Low Dose Aspirin) duloxetine 60 mg capsule,delayed 60 mg PO DAILY 09/03/22 05/02/24 History release glycopyrrolate 1 mg tablet 1 mg PO TID 09/03/22 05/02/24 History rosuvastatin 20 mg tablet 20 mg PO DAILY #90 tabs 12/25/23 05/02/24 Rx clopidogrel 75 mg tablet 75 mg PO DAILY #90 tabs 03/01/24 05/02/24 Rx folic acid 1 mg tablet 1 mg PO DAILY #90 tabs 03/01/24 05/02/24 Rx pregabalin 50 mg capsule 50 mg PO DAILY #90 caps 03/01/24 05/02/24 Rx topiramate 25 mg tablet 25 mg PO BID #180 tabs 03/01/24 05/02/24 Rx Have you fallen in the past year?: No PFSH Medical History Epigastric pain Wears glasses Cancer Bruising Arthritis High cholesterol Gastric reflux Non-smoker Implantable loop recorder present History of echocardiogram Cardiology follow-up encounter Fatigue Abnormal mammogram of right breast Blood thinned due to long-term anticoagulant use GERD (gastroesophageal reflux disease) CVA (cerebral vascular accident) Alteration in vision Hypercholesterolemia Surgical History History of cardiac catheterization History of knee replacement procedure of left knee History of left heart catheterization (06/13/14) History of sinus surgery History of squamous cell carcinoma excision History of colonoscopy ( 2016) History of right breast biopsy History of back surgery Hx of cataract surgery H/O arthroscopic knee surgery H/O: hysterectomy Family History Mother Hypertension High cholesterol Grandmother CVA (cerebral vascular accident) Other Alcoholism Cancer Social History household members: spouse Smoking Status: Never smoker second hand exposure: No alcohol intake: never substance use type: does not use caffeine: Yes Type: coffee Number of servings: 1 what type of physical activity do you participate in: weight training and other frequency: 5-6 times per week meet/hinduism: Adventism seatbelt use: always HPI HPI HPI: Patient is a 73-year-old female who makes repeat consultation related to epigastric discomfort. She is known to me for a history of hiatal hernia that was diagnosed in conjunction with symptoms of heartburn and acid reflux symptoms. Her last visit was October 2023. She presents today with her . She states flatly that she can eat anything without using lots of Tums. She reports that she uses at least a handful just to go to bed at night and that everything hurts me???referencing any food intake. She confesses that she did not think that she would be coming back but with the symptoms she had to see what her options were. In addition to taking twice daily PPI and the after mentioned time she is using cimetidine every evening as well. When asked if she is trying to change her lifestyle habits she shares that she has kind of cut back on spice. Lastly, as are conversation evolved she (more content not included)... Normal [facility] Office Visit Reporton 2024 Office Visit Report [facility] [address] [place] [address] OFFICE VISIT Date of Service: 04/28/24 MR#: [id number] Acct: [id number] Patient: ANABELLA SALVADOR Rep #: [id number] : 1950 Provider: Dr. Shiva nixon MD Age/Sex: 73/F Location: [facility] Status: Signed Intake Vital Signs 03/15/24 13:14 04/28/24 10:09 Height 5 ft 3 in 5 ft 3 in Weight: 179 lb 177 lb BMI 31.6 31.3 BP 138/70 H 138/80 H Blood Pressure Location Lt brachial Lt brachial Position Sitting Sitting Respiration 17 17 Pulse 84 82 Pulse Source Monitor Monitor Temp 98.6 F 97.8 F Temp Source Temporal Temporal Pulse Oximetry (%) 98 Oxygen Delivery Method room air Intake Visit Reasons: B12 Chief Complaint: Allergies atorvastatin (From Lipitor) Allergy (Unknown, Verified 02/25/24 11:03) unknown lisinopril Allergy (Unknown, Verified 02/25/24 11:03) unknown simvastatin (From Zocor) Allergy (Unknown, Verified 02/25/24 11:03) unknown Sulfa (Sulfonamide Antibiotics) Allergy (Unknown, Verified 02/25/24 11:03) Headache, nausea propoxyphene napsylate (From Darvocet-N) Allergy (Verified 02/25/24 11:03) Unknown Have you fallen in the past year?: No Office Meds cyanocobalamin (vitamin B-12) 1,000 mcg/mL injection solution Performing Provider: Shiva Perkins MD Performing Location: [facility] Administered by: Veronique Valerio on 04/28/24 10:12 Dose Route Admin Location Dispensed Lot Number Expiration Date [facility] Man ufacturer 1,500 mcg IM left deltoid 1.5 mL [id number] 07/11/26 80069-102-76 MINISTER[employer] MEDRANO Comments: The patient presents for B12 injection for treatment of fatigue. She has fatigue. Her last B12 injection was of benefit for fatigue. The patient is awake and alert. B12 1500mcg IM was administered today. Assessment and Plan Assessment and Plan (1) Fatigue: Status: Acute Orders: Orders Vitamin B12 04/28/24 R53.83 - Other fatigue Clinical Quality Measures Falls Risk Screening/Assistive Devices Have you fallen in the past year?: No 04/29/24 0055 Date Shiva Perkins MD Cosigner Signature: Date (if applicable) CC: Normal [facility] Abdomen Single Viewon 2023 Abdomen Single View [facility] [address] [place] [address] [id number] Abdomen Single View MR#: [id number] Acct: [id number] Name: CASEANABELLA Rep #: [id number] : 1950 F 73 From: Dhaval Bob PCP: Dr. Stefani Ball MD Status: PRE CLI Study: Abdomen Single View Date of Exam: 04/08/24 Exam# [id number] Ordering Dr: Shiva Perkins MD [id number] INDICATION: MRI clearance for foreign body -- resolution clip and Lynn PH capsule have been excreted EXAMINATION/TECHNIQUE: X-RAY - XR Abdomen 1 View COMPARISON: None FINDINGS: Foreign body: 1. There is a foreign body projecting LEFT upper quadrant in the region of the GE junction measuring approximately 2.3 cm of uncertain etiology. This may represent a clip however does not have acoustic appearance of a Resolution Clip]. BOWEL GAS PATTERN: Non-obstructive. No bowel or stomach distention. FREE AIR: Not assessed on a single supine view. ORGANOMEGALY: Not seen. CALCIFICATIONS: No abnormal calcifications observed. LOWER CHEST: No acute pathology. BONES AND SOFT TISSUES: No acute pathology. RAD/Abdomen Single View IMPRESSION: 1. Radiopaque foreign body projecting within the LEFT upper quadrant in the region of the GE junction, measuring approximately 2.3 cm in length. This is of uncertain etiology, however may represent a cleft. The configuration however it is not characteristic of a Resolution Clip. 2. Identification and verification of this foreign body is warranted. Electronically Signed: Dhaval Mendez MD at 16:56 EST , CC: Dr. Stefani Ball MD; Dr. Shiva Perkins MD Pork Cutlet Maker: Signed Normal [facility] Chest 1 Viewon 04-08-2024 Chest 1 View [facility] [address] [place] [address] [id number] Chest 1 View MR#: [id number] Acct: [id number] Name: CASEANABELLA Rep #: [id number] : 1950 F 73 From: Dhaval Bob PCP: Dr. Stefani Ball MD Status: PRE CLI Study: Chest 1 View Date of Exam: 04/08/24 Exam# [id number] Ordering Dr: Shiva Perkins MD [id number] INDICATION: LOOP RECORDER PLACEMENT CLEARANCE-SUPINE -- SUPINE ONLY EXAMINATION/TECHNIQUE: X-RAY - XR Chest 1 View COMPARISON: 01/10/2022 FINDINGS: LIFE-SUPPORT AND LINES: 1. Cardiac loop monitor has been place the interval, projecting at the level of the LEFT anterior 3rd rib. 2. Additional radiopaque foreign body projecting in the upper abdomen at the level of the GE junction. This is of uncertain etiology. HEART AND VESSELS: The cardiac silhouette, pulmonary vasculature have normal appearance. No evidence of congestive failure. LUNGS AND PLEURAL SPACES: Lungs are clear. No focal infiltrate, consolidation or effusions. No evidence of pneumothorax. Patchy area of density at the RIGHT CP angle with negligible change.. MEDIASTINUM AND HILAR REGIONS: No masses adenopathy noted. No areas of calcification. Visualized upper airway is normal in position. BONY ELEMENTS: No acute bony changes noted. RAD/Chest 1 View IMPRESSION: 1. Cardiac loop monitor placed in the interval projecting at the level of the LEFT anterior 3rd rib.. 2. Linear foreign body projecting in the LEFT upper quadrant, of uncertain etiology. 3. No evidence of acute cardiopulmonary process. 4. Stable appearance of a nodular density at the RIGHT base. Electronically Signed: Dhaval Mendez MD at 17:00 EST , CC: Dr. Stefani Ball MD; Dr. Shiva Perkins MD Pork Cutlet Maker: Signed Normal [facility] Office Visit Reporton 2023 Office Visit Report [facility] [address] [place] [address] OFFICE VISIT Date of Service: 03/15/24 MR#: [id number] Acct: [id number] Patient: ANABELLA SALVADOR Rep #: [id number] : 1950 Provider: Dr. Shiva nixon MD Age/Sex: 73/F Location: [facility]. Status: Signed Intake Vital Signs 01/11/24 12:56 02/25/24 10:58 03/15/24 13:14 Height 5 ft 3 in 5 ft 3 in 5 ft 3 in Weight: 177 lb 179 lb BMI 31.3 31.6 BP 132/68 H 138/70 H Blood Pressure Location Lt brachial Lt brachial Position Sitting Sitting Respiration 16 17 Pulse 77 84 Pulse Source Monitor Monitor Temp 98.6 F 98.6 F Temp Source Temporal Temporal Pulse Oximetry (%) 98 98 Oxygen Delivery Method room air room air Intake Visit Reasons: B12 inject Chief Complaint: Allergies atorvastatin (From Lipitor) Allergy (Unknown, Verified 02/25/24 11:03) unknown lisinopril Allergy (Unknown, Verified 02/25/24 11:03) unknown simvastatin (From Zocor) Allergy (Unknown, Verified 02/25/24 11:03) unknown Sulfa (Sulfonamide Antibiotics) Allergy (Unknown, Verified 02/25/24 11:03) Headache, nausea propoxyphene napsylate (From Darvocet-N) Allergy (Verified 02/25/24 11:03) Unknown Have you fallen in the past year?: No Office Meds cyanocobalamin (vitamin B-12) 1,000 mcg/mL injection solution Performing Provider: Shiva Perkins MD Performing Location: [facility] Administered by: Veronique Valerio on 03/15/24 13:15 Dose Route Admin Location Dispensed Lot Number Expiration Date [facility] Man ufacturer 1,500 mcg IM left deltoid 1.5 mL [id number] 05/13/26 [id number] MINISTERIO MEDRANO Comments: The patient presents for B12 injection for treatment of fatigue. She has fatigue. Her last B12 1000mcg injection was of little benefit for fatigue. Patient is awake and alert. New verbal order: B12 was increased to 1500mcg IM. The new order was administered today. There were nocomplications. Assessment and Plan Assessment and Plan (1) Fatigue: Status: Acute Orders: Orders Vitamin B12 Today R53.83 - Other fatigue Clinical Quality Measures Falls Risk Screening/Assistive Devices Have you fallen in the past year?: No 03/15/24 1706 Date Shiva Perkins MD Cosigner Signature: Date (if applicable) CC: Normal [facility] Albumin to globulin ratioOrd ered By: Shiva Perkins on 03-01-2024 Albumin/Globulin [Mass ratio] 1.0 {ratio} 0.9-2.4 [facility] Bilirubin, totalOrdered By: Shiva Perkins on 03-01-2024 Bilirubin [Mass/Vol] 0.20 mg/dL 0.20-1.00 [facility] Comment on above: For patients on eltr ombopag therapy, use of Dimension [place] TBIL is not recommended. Blood urea nitrogen (BUN)/cr eatinine ratioOrdered By: Shiva Perkins on 03-01-2024 Urea nitrogen/Creatinine [Mass ratio] 14.6 mg/mg - [facility] CBC-Complete Blood Cnt No Di ffon 03-01-2024 Erythrocyte distribution width (RBC) [Ratio] 13.7 % Normal 11.6-14.6 [facility] Comment on above: Performed By: #### L 500.4050, L100.0500, L501.9985, L506.0250, L501.9520 ####[facility] [address] [place], [address] Hematocrit (Bld) [Volume fraction] 36.7 % Low 37-47 [facility] Comment on above: Performed By: #### L 500.4050, L100.0500, L501.9985, L506.0250, L501.9520 ####[facility] [address] [place], [address] Hemoglobin (Bld) [Mass/Vol] 11.9 g/dL Low 12.0-15.0 [facility] Comment on above: Performed By: #### L 500.4050, L100.0500, L501.9985, L506.0250, L501.9520 ####[facility] [address] [place], [address] MCH (RBC) [Entitic mass] 29.0 pg Normal 27.0-32.0 [facility] Comment on above: Performed By: #### L 500.4050, L100.0500, L501.9985, L506.0250, L501.9520 ####[facility] [address] [place], [address] MCHC (RBC) [Mass/Vol] 32.4 g/dL Normal 32-36 [facility] Comment on above: Performed By: #### L 500.4050, L100.0500, L501.9985, L506.0250, L501.9520 ####[facility] [address] [place], [address] MCV (RBC) [Entitic vol] 89.3 fL Normal 81-99 [facility] Comment on above: Performed By: #### L 500.4050, L100.0500, L501.9985, L506.0250, L501.9520 ####[facility] [address] [place], [address] Platelet mean volume (Bld) [Entitic vol] 10.4 fL Normal 6.2-12.0 [facility] Comment on above: Performed By: #### L 500.4050, L100.0500, L501.9985, L506.0250, L501.9520 ####[facility] [address] [place], [address] Platelets (Bld) [#/Vol] 297 10*3/uL Normal 150-450 [facility] Comment on above: Performed By: #### L 500.4050, L100.0500, L501.9985, L506.0250, L501.9520 ####[facility] [address] [place], [address] RBC (Bld) [#/Vol] 4.11 10*6/uL Low 4.2-5.4 [facility] Comment on above: Performed By: #### L 500.4050, L100.0500, L501.9985, L506.0250, L501.9520 ####[facility] [address] [place], [address] RDW SD 44.5 fl High 35.1-43.9 [facility] Comment on above: Performed By: #### L 500.4050, L100.0500, L501.9985, L506.0250, L501.9520 ####[facility] [address] [place], [address] WBC (Bld) [#/Vol] 7.9 10*3/uL Normal 4.4-11.0 [facility] Comment on above: Performed By: #### L 500.4050, L100.0500, L501.9985, L506.0250, L501.9520 ####[facility] [address] [place], [address] Carbon dioxide measurementOr dered By: Shiva Perkins on 03-01-2024 CO2 [Moles/Vol] 27.0 mmol/L 21.0-32.0 [facility] Chloride measurementOrdered By: Shiva Perkins on 03-01-2024 Chloride [Moles/Vol] 107 mmol/L 98-107 [facility] Comprehensive Metabolic Prof ilon 03-01-2024 Albumin [Mass/Vol] 3.5 g/dL Normal 3.2-5.0 [facility] Comment on above: Order Comment: UNKN Performed By: #### L 500.4050, L100.0500, L501.9985, L506.0250, L501.9520 ####[facility] [address] [place], [address] Albumin/Globulin [Mass ratio] 1.0 {ratio} Normal 0.9-2.4 [facility] Comment on above: Order Comment: UNKN Performed By: #### L 500.4050, L100.0500, L501.9985, L506.0250, L501.9520 ####[facility] [address] [place], [address] ALK P 68 U/L Normal 45-117 [facility] Comment on above: Order Comment: UNKN Performed By: #### L 500.4050, L100.0500, L501.9985, L506.0250, L501.9520 ####[facility] [address] [place], [address] ALT [Catalytic activity/Vol] 21 U/L Normal 13-56 [facility] Comment on above: Order Comment: UNKN Performed By: #### L 500.4050, L100.0500, L501.9985, L506.0250, L501.9520 ####[facility] [address] [place], [address] AST [Catalytic activity/Vol] 15 U/L Normal 15-37 [facility] Comment on above: Order Comment: UNKN Performed By: #### L 500.4050, L100.0500, L501.9985, L506.0250, L501.9520 ####[facility] [address] [place], [address] Bilirubin [Mass/Vol] 0.20 mg/dL Normal 0.20-1.00 [facility] Comment on above: Order Comment: UNKN Result Comment: For patients on eltrombopag therapy, use of Dimension [place] TBIL is not recommended. Performed By: #### L 500.4050, L100.0500, L501.9985, L506.0250, L501.9520 ####[facility] [address] [place], [address] BUN/CRE 14.6 RATIO Normal 10-20 [facility] Comment on above: Order Comment: UNKN Performed By: #### L 500.4050, L100.0500, L501.9985, L506.0250, L501.9520 ####[facility] [address] [place], [address] CA,Total 9.4 mg/dL Normal 8.5-10.1 [facility] Comment on above: Order Comment: UNKN Performed By: #### L 500.4050, L100.0500, L501.9985, L506.0250, L501.9520 ####[facility] [address] [place], [address] Chloride [Moles/Vol] 107 mmol/L Normal 98-107 [facility] Comment on above: Order Comment: UNKN Performed By: #### L 500.4050, L100.0500, L501.9985, L506.0250, L501.9520 ####[facility] [address] [place], [address] CO2 [Moles/Vol] 27.0 mmol/L Normal 21.0-32.0 [facility] Comment on above: Order Comment: UNKN Performed By: #### L 500.4050, L100.0500, L501.9985, L506.0250, L501.9520 ####[facility] [address] [place], [address] Creatinine [Mass/Vol] 1.03 mg/dL High 0.55-1.02 [facility] Comment on above: Order Comment: UNKN Result Comment: The validity of the calculated GFR GFRAA in patients over 70 years has not been determined. Clinical correlation is essential. Performed By: #### L 500.4050, L100.0500, L501.9985, L506.0250, L501.9520 ####[facility] [address] [place], [address] EST GFR - AA 68 mL/min Normal >60 [facility] Comment on above: Order Comment: UNKN Result Comment: Afri can Somali GFR Calc Performed By: #### L 500.4050, L100.0500, L501.9985, L506.0250, L501.9520 ####[facility] [address] [place], [address] GAP 5 Normal 5-15 [facility] Comment on above: Order Comment: UNKN Performed By: #### L 500.4050, L100.0500, L501.9985, L506.0250, L501.9520 ####[facility] [address] [place], [address] GFR/1.73 sq M.predicted among non-blacks MDRD (S/P/Bld) [Vol rate/Area] 56 mL/min/{1.73_m2} Low >60 [facility] Comment on above: Order Comment: UNKN Result Comment: Non- GFR Calc Performed By: #### L 500.4050, L100.0500, L501.9985, L506.0250, L501.9520 ####[facility] [address] [place], [address] Globulin (S) [Mass/Vol] 3.6 g/dL Normal 2.2-4.2 [facility] Comment on above: Order Comment: UNKN Performed By: #### L 500.4050, L100.0500, L501.9985, L506.0250, L501.9520 ####[facility] [address] [place], [address] Glucose [Mass/Vol] 103 mg/dL Normal 74-106 [facility] Comment on above: Order Comment: UNKN Result Comment: Fast ing Glucose result from 100 to 125 mg/dL suggests IMPAIRED HOMEOSTASIS per A.D.A. criteria. Performed By: #### L 500.4050, L100.0500, L501.9985, L506.0250, L501.9520 ####[facility] [address] [place], [address] Potassium [Moles/Vol] 4.0 mmol/L Normal 3.5-5.1 [facility] Comment on above: Order Comment: UNKN Performed By: #### L 500.4050, L100.0500, L501.9985, L506.0250, L501.9520 ####[facility] [address] [place], [address] Sodium [Moles/Vol] 139 mmol/L Normal 136-145 [facility] Comment on above: Order Comment: UNKN Performed By: #### L 500.4050, L100.0500, L501.9985, L506.0250, L501.9520 ####[facility] [address] [place], [address] T PROT 7.1 g/dL Normal 6.4-8.2 [facility] Comment on above: Order Comment: UNKN Performed By: #### L 500.4050, L100.0500, L501.9985, L506.0250, L501.9520 ####[facility] [address] [place], [address] Urea nitrogen [Mass/Vol] 15 mg/dL Normal 7-18 [facility] Comment on above: Order Comment: UNKN Performed By: #### L 500.4050, L100.0500, L501.9985, L506.0250, L501.9520 ####[facility] [address] [place], [address] Erythrocyte distribution wid th ratioOrdered By: Shiva Perkins on 03-01-2024 Erythrocyte distribution width (RBC) [Ratio] 13.7 % 11.6-14.6 [facility] Erythrocyte distribution wid th standard deviationOrdered By: Shiva Perkins on 03-01-2024 Erythrocyte distribution width (RBC) [Entitic vol] 44.5 fL High 35.1-43.9 [facility] Estimated glomerular filtrat ion rate (GFR) AmericanOrdered By: Shiva Perkins on 03-01-2024 Estimated GFR (MDRD) Amer 68 mL/min >60 [facility] Comment on above: GFR Calc Folates, (Folic Acid)on 02-11 FOLATES 27.60 ng/mL Normal 3.1-55.4 [facility] Comment on above: Order Comment: UNKN Performed By: #### L 500.4050, L100.0500, L501.9985, L506.0250, L501.9520 ####[facility] [address] [place], [place], [id number] Folic acid measurementOrdere d By: Shiva Perkins on 03-01-2024 Folate 27.60 ng/mL 3.1-55.4 [facility] Glomerular filtration rate ( GFR) estimationOrdered By: Shiva Perkins on 03-01-2024 Estimated GFR (MDRD) Non-Af Amer 56 mL/min Low >60 [facility] Comment on above: Non- GFR Calc Glucose measurementOrdered B y: Shiva Perkins on 03-01-2024 Glucose [Mass/Vol] 103 mg/dL 74-106 [facility] Comment on above: Fasting Glucose resu lt from 100 to 125 mg/dL suggests IMPAIRED HOMEOSTASIS per A.D.A. criteria. Hematocrit Auto (Bld) [Volum e fraction]Ordered By: Shiva Perkins on 03-01-2024 Hematocrit (Bld) [Volume fraction] 36.7 % Low 37-47 [facility] Hemoglobin A1con 03-01-2024 HbA1c (Bld) [Mass fraction] 5.7 % High 3.8-5.6 [facility] Comment on above: Result Comment: Norm al < 5.7 % Prediabetic 5.7 - 6.4 % Diabetic >or= 6.5 % Please note range changes. Performed By: #### L 500.4050, L100.0500, L501.9985, L506.0250, L501.9520 ####[facility] [address] [place], [place], [id number] Hemoglobin A1c percentageOrd ered By: Shiva Perkins on 03-01-2024 HbA1c (Bld) [Mass fraction] 5.7 % High 3.8-5.6 [facility] Comment on above: Normal < 5.7 % Predi abetic 5.7 - 6.4 % Diabetic >or= 6.5 % Please note range changes. Hemoglobin measurementOrdere d By: Shiva Perkins on 03-01-2024 Hemoglobin (Bld) [Mass/Vol] 11.9 g/dL Low 12.0-15.0 [facility] Laboratory - Chemistry and C hemistry - challengeOrdered By: Shiva Perkins on 03-01-2024 AST [Catalytic activity/Vol] 15 U/L 15-37 [facility] MCV (mean corpuscular volume ) determinationOrdered By: Shiva Perkins on 03-01-2024 MCV (RBC) [Entitic vol] 89.3 fL 81-99 [facility] Mean corpuscular hemoglobin (MCH) determinationOrdered By: Shiva Perkins on 03-01-2024 MCH (RBC) [Entitic mass] 29.0 pg 27.0-32.0 [facility] Mean corpuscular hemoglobin concentration (MCHC) determinationOrdered By: Shiva Perkins on 03-01-2024 MCHC (RBC) [Mass/Vol] 32.4 g/dL 32-36 [facility] Mean platelet volume determi nationOrdered By: Shiva Perkins on 03-01-2024 Platelet mean volume (Bld) [Entitic vol] 10.4 fL 6.2-12.0 [facility] Platelet countOrdered By: Ra alberto Perkins on 03-01-2024 Platelets (Bld) [#/Vol] 297 10*3/uL 150-450 [facility] Potassium measurementOrdered By: Shiva Perkins on 03-01-2024 Potassium [Moles/Vol] 4.0 mmol/L 3.5-5.1 [facility] RBC Auto (Bld) [#/Vol]Ordere d By: Shiva Perkins on 03-01-2024 RBC (Bld) [#/Vol] 4.11 10*6/uL Low 4.2-5.4 [facility] Serum anion gap measurementO rdered By: Shiva Perkins on 03-01-2024 Anion gap [Moles/Vol] 5 mmol/L 5-15 [facility] Serum globulin measurementOr dered By: Shiva Perkins on 03-01-2024 Globulin (S) [Mass/Vol] 3.6 g/dL 2.2-4.2 [facility] Serum or plasma alanine eid otransferase (ALT) measurementOrdered By: Shiva Perkins on 03-01-2024 ALT [Catalytic activity/Vol] 21 U/L 13-56 [facility] Serum or plasma albumin john urement (mass/volume)Ordered By: Shiva Perkins on 03-01-2024 Albumin [Mass/Vol] 3.5 g/dL 3.2-5.0 [facility] Serum or plasma alkaline kirit sphatase measurementOrdered By: Shiva Perkins on 03-01-2024 ALP [Catalytic activity/Vol] 68 U/L 45-117 [facility] Serum or plasma calcium john urement (mass/volume)Ordered By: Shiva Perkins on 03-01-2024 Calcium [Mass/Vol] 9.4 mg/dL 8.5-10.1 [facility] Serum or plasma creatinine m easurement (mass/volume)Ordered By: Shiva Perkins on 03-01-2024 Creatinine [Mass/Vol] 1.03 mg/dL High 0.55-1.02 [facility] Comment on above: The validity of the calculated GFR & GFRAA in patients over 70 years has not been determined. Clinical correlation is essential. Serum or plasma urea nitroge n measurement (mass/volume)Ordered By: Shiva Perkins on 03-01-2024 Urea nitrogen [Mass/Vol] 15 mg/dL 7-18 [facility] Sodium levelOrdered By: Lorenzo Perkins on 03-01-2024 Sodium [Moles/Vol] 139 mmol/L 136-145 [facility] TSH QnOrdered By: Shiva lezama on 03-01-2024 Thyroid Stimulating Hormone (TSH) 2.820 uIU/mL 0.358-3.74 0 [facility] Thyroid Stim Hormone (TSH)on 03-01-2024 TSH 2.820 uIU/mL Normal 0.358-3.74 0 [facility] Comment on above: Order Comment: UNKN Performed By: #### L 500.4050, L100.0500, L501.9985, L506.0250, L501.9520 ####[facility] [address] [place], [address] Total proteinOrdered By: Marc reynoso Maddie on 03-01-2024 Protein [Mass/Vol] 7.1 g/dL 6.4-8.2 [facility] White blood cell (WBC) count Ordered By: Shiva Perkins on 03-01-2024 WBC (Bld) [#/Vol] 7.9 10*3/uL 4.4-11.0 [facility] Neurology Visit Reporton Neurology Visit Report [facility] [address], [address] [place], [place] [address] OFFICE VISIT Date of Service: 02/25/24 MR#: [id number] Acct: [id number] Name: CASEANABELLA Rep #: [id number] : 1950 Provider: Dr. Shiva nixon MD Age/Sex: 73/F Location: [facility] Status: Signed HPI HPI Chief Complaint: Details: Interim History: Anabella returns for follow-up visit. She has a history of hyperlipidemia, gastroesophageal reflux disease and hypertension. In December 2021, she experienced acute onset visual field impairment. For a few seconds, she was unable to see objects before her and then subsequently began to experience fluctuating scintillations described as blurry spots, checkered scotoma pattern and color scintillations. She did not have associated numbness, weakness or gait difficulty. She had a left parietal region headache. She noted having some word finding difficulty but did not have slurred speech or impaired comprehension. She had some memory difficulty. She did not seek medical attention that day. Two days later, she was evaluated by an as400 consultant and per the patient's report, was found to have a visual field deficit and was thought to have had a stroke (an official report is presently not available). The following day she presented to the hospital since her visual deficits did not improve and on evaluation was found to have an acute left occipital cortical infarct. Her EKG revealed normal sinus rhythm with ST and T wave abnormalities raising concern for lateral ischemia. Her cardiac echo revealed a possible patent foramen ovale. A carotid ultrasound revealed less than 50% stenosis of the internal carotid arteries bilaterally and this was corroborated by neck CTA. A head CTA revealed narrowing of the M1 segment of the left middle cerebral artery (greater than 70%) and M2 of the right middle cerebral artery (greater than 75%). She was on aspirin 81 mg daily and rosuvastatin 20 mg daily when her stroke occurred. Subsequently, clopidogrel was added and she is currently taking a combination of clopidogrel and aspirin 81 mg daily. Since this medication change, she has noticed easy bruising. Clopidogrel was then discontinued and aspirin was increased to 162mg daily however subsequently in July 2022 she had worsening of her visual impairment manifesting with increased visual field impairment in the right visual field over her baseline visual field impairment from her stroke in December 2021 and this has persisted. 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 Clopidogrel was resumed and aspirin was reduced back to 81mg daily. Atorvastatin was increased to 40mg daily however this caused myalgia and atorvastatin was reduced to 20mg daily. She has a history of hot flashes and stated that clopidogrel somewhat worsened this symptom. She has not had further symptoms suggestive of cerebrovascular ischemia since July 2022. Her speech and memory have continued to improve. Earlier in 2023 she had a momentary episode of dysphasia; she did not seek medical attention for this. She saw a tooler and had a transesophageal echo earlier in 2022 and she was found not to have an atrial septal defect. She had an implanted cardiac loop recorder placed in 2022. She does not have any history of symptomatic stroke prior to December 2021. She continues to have some word finding difficulty and memory difficulty. And some visual impairment that manifests with impaired ability to read and spelling difficulty. Her neck CTA also revealed thyroid nodules. She had migraine headaches in years past (throbbing headaches with associated nausea, photophobia and phonophobia) these headaches subsided after she had a hysterectomy around the age of 61. She has experienced intermittent occasional bitemporal icepick headaches, a migraine variant. She denies having further headaches within recent months. She reports a history of burning pain in the feet that is worse at night consistent with a polyneuropathy; this has been occurring since around 2012. Around 2012, she had lumbar surgery for low back pain and right lower extremity radicular pain and this was of benefit. She no longer has back pain. She has pain in both hands. She only occasionally has neck pain. Gabapentin, tried in the past for neuropathic pain caused cognitive side effects. She takes pregabalin 75mg BID and this has been of some benefit for her neuropathic pain. She takes duloxetine for depression and anxiety; this has not been of benefit for her neuropathic pain. EMG/nerve conduction studies of the lower extremities in 2022 were normal. EMG/nerve conduction studies of the upper extremities in 2022 were normal. A left lower extremity skin biopsy to assess for small fiber polyneuropathy revealed significant (more content not included)... Normal [facility] Office Visit Reporton 2023 Office Visit Report [facility] [address] [place] [address] OFFICE VISIT Date of Service: 02/11/24 MR#: [id number] Acct: [id number] Patient: ANABELLA SALVADOR Rep #: [id number] : 1950 Provider: Dr. Shiva nixon MD Age/Sex: 73/F Location: [facility]. Status: Signed Intake Vital Signs 12/10/23 09:49 02/11/24 14:19 Height 5 ft 3 in 5 ft 3 in Weight: 178 lb 3 oz 177 lb BMI 31.5 31.3 BP 136/80 H 120/72 Blood Pressure Location Rt brachial Lt brachial Position Sitting Sitting Respiration 17 17 Pulse 83 84 Pulse Source Monitor Monitor Temp 97.8 F 98.4 F Temp Source Temporal Temporal Pulse Oximetry (%) 95 99 Oxygen Delivery Method room air room air Intake Visit Reasons: B12 inject Chief Complaint: EGD f/u Allergies atorvastatin (From Lipitor) Allergy (Unknown, Verified 10/20/23 14:12) unknown lisinopril Allergy (Unknown, Verified 10/20/23 14:12) unknown simvastatin (From Zocor) Allergy (Unknown, Verified 10/20/23 14:12) unknown Yaalstr-BYK-EfM Reductase Inhibitor Allergy (Unknown, Verified 10/20/23 14:12) Intolerant Sulfa (Sulfonamide Antibiotics) Allergy (Unknown, Verified 10/20/23 14:12) Headache, nausea propoxyphene napsylate (From Darvocet-N) Allergy (Verified 10/20/23 14:12) Unknown Have you fallen in the past year?: No Office Meds cyanocobalamin (vitamin B-12) 1,000 mcg/mL injection solution Performing Provider: Shiva Perkins MD Performing Location: [facility] Administered by: Veronique Valerio on 02/11/24 13:11 Dose Route Admin Location Dispensed Lot Number Expiration Date DANILO Fraser ufacturer 1,000 mcg IM left deltoid 1 mL [id number] 05/13/26 74331-093-61 MINISTER[employer] MEDRANO Comments: The patient presents for B12 injection for treatment of fatigue. She has fatigue. Her last B12 injection was of benefit for fatigue. The patient is awake and alert. B12 1000mcg IM was administered today. There were no complications. Assessment and Plan Assessment and Plan (1) Fatigue: Status: Acute Orders: Orders Vitamin B12 Today R53.83 - Other fatigue Clinical Quality Measures Falls Risk Screening/Assistive Devices Have you fallen in the past year?: No 02/11/24 1641 Date [facility] Perkins [facility]: Date (if applicable) CC: Normal [facility] Office Visit Reporton 2023 Office Visit Report [facility] [address] [place] [address] OFFICE VISIT Date of Service: 01/11/24 MR#: [id number] Acct: [id number] Patient: ANABELLA SALAVDOR Rep #: [id number] : 1950 Provider: Dr. Shiva nixon MD Age/Sex: 73/F Location: [facility] Status: Signed Intake Vital Signs 11/09/23 09:05 01/11/24 12:56 Height 5 ft 3 in 5 ft 3 in Weight: 177 lb 3 oz 179 lb BMI 31.4 31.6 BP 144/82 H 122/80 H Blood Pressure Location Lt brachial Lt brachial Position Sitting Sitting Respiration 16 17 Pulse 86 82 Pulse Source Monitor Monitor Temp 97.8 F 98.6 F Temp Source Temporal Temporal Pulse Oximetry (%) 97 98 Oxygen Delivery Method room air room air Intake Visit Reasons: B12 inject Chief Complaint: EGD f/u Allergies atorvastatin (From Lipitor) Allergy (Unknown, Verified 10/20/23 14:12) unknown lisinopril Allergy (Unknown, Verified 10/20/23 14:12) unknown simvastatin (From Zocor) Allergy (Unknown, Verified 10/20/23 14:12) unknown Wbciqqa-TUZ-SwE Reductase Inhibitor Allergy (Unknown, Verified 10/20/23 14:12) Intolerant Sulfa (Sulfonamide Antibiotics) Allergy (Unknown, Verified 10/20/23 14:12) Headache, nausea propoxyphene napsylate (From Darvocet-N) Allergy (Verified 10/20/23 14:12) Unknown Have you fallen in the past year?: No Office Meds cyanocobalamin (vitamin B-12) 1,000 mcg/mL injection solution Performing Provider: Shiva Perkins MD Performing Location: [facility] Administered by: Veronique Valerio on 01/11/24 13:05 Dose Route Admin Location Dispensed Lot Number Expiration Date NDC Man ufacturer 1,000 mcg IM left deltoid 1 mL [id number] 02/10/26 97846-264-41 MINISTERIO MEDRANO Comments: The patient presents for B12 injection for treatment of fatigue. She has fatigue. Her last B12 injection was of benefit for fatigue. The patient is awake and alert. B12 1000mcg IM was administered today. There were no complications. Assessment and Plan Assessment and Plan (1) Fatigue: Status: Acute Orders: Orders Vitamin B12 Today R53.83 - Other fatigue Clinical Quality Measures Falls Risk Screening/Assistive Devices Have you fallen in the past year?: No 01/11/24 1652 Date Shiva Perkins MD Cosigner Signature: Date (if applicable) CC: Normal [facility] Office Visit Reporton 2023 Office Visit Report [facility] [place] [address] OFFICE VISIT Date of Service: 12/10/23 MR#: [id number] Acct: [id number] Patient: ANABELLA SALVADOR Rep #: [id number] : 1950 Provider: Dr. Shiva nixon MD Age/Sex: 73/F Location: [facility] Status: Signed Intake Vital Signs 11/09/23 09:05 12/10/23 09:49 Height 5 ft 3 in 5 ft 3 in Weight: 177 lb 3 oz 178 lb 3 oz BMI 31.4 31.5 BP 144/82 H 136/80 H Blood Pressure Location Lt brachial Rt brachial Position Sitting Sitting Respiration 16 17 Pulse 86 83 Pulse Source Monitor Monitor Temp 97.8 F 97.8 F Temp Source Temporal Temporal Pulse Oximetry (%) 97 95 Oxygen Delivery Method room air room air Intake Visit Reasons: B12 inject Chief Complaint: EGD f/u Allergies atorvastatin (From Lipitor) Allergy (Unknown, Verified 10/20/23 14:12) unknown lisinopril Allergy (Unknown, Verified 10/20/23 14:12) unknown simvastatin (From Zocor) Allergy (Unknown, Verified 10/20/23 14:12) unknown Vsamexr-EYD-DpT Reductase Inhibitor Allergy (Unknown, Verified 10/20/23 14:12) Intolerant Sulfa (Sulfonamide Antibiotics) Allergy (Unknown, Verified 10/20/23 14:12) Headache, nausea propoxyphene napsylate (From Darvocet-N) Allergy (Verified 10/20/23 14:12) Unknown Have you fallen in the past year?: No Office Meds cyanocobalamin (vitamin B-12) 1,000 mcg/mL injection solution Performing Provider: Shiva Perkins MD Performing Location: [facility] Administered by: Veronique Valerio on 12/10/23 09:51 Dose Route Admin Location Dispensed Lot Number Expiration Date NDC Man ufacturer 1,000 mcg IM left deltoid 1 mL [id number] 02/10/26 09951-482-75 MINISTERIO MEDRANO Comments: The patient presents for B12 injection for treatment of fatigue. She has fatigue. Her last B12 injection was of benefit for fatigue. The patient is awake and alert. B12 1000mcg IM was administered today. There were no complications. Assessment and Plan Assessment and Plan (1) Fatigue: Status: Acute Orders: Orders Vitamin B12 Today R53.83 - Other fatigue Clinical Quality Measures Falls Risk Screening/Assistive Devices Have you fallen in the past year?: No 12/10/23 1144 Date Shiva Quintero Signature: Date (if applicable) CC: Normal [facility] Basophil percentageOrdered B y: Stefani Ball on 08-17-2023 Chloride [Moles/Vol] 109 mmol/L 98-107 [facility] Cholesterol [Mass/Vol] 162 mg/dL <200 [facility] Comment on above: <200 mg/dL Desirable 200-240 mg/dL Borderline >240 mg/dL High Risk Glucose [Mass/Vol] 90 mg/dL 74-106 [facility] Potassium [Moles/Vol] 4.3 mmol/L 3.5-5.1 [facility] Sodium [Moles/Vol] 139 mmol/L 136-145 [facility] Triglyceride [Mass/Vol] 177 mg/dL <199 [facility] Comment on above: The drugs N-Acetylcy steine and Metamizole may falsely depress this assay.Serum Triglycerides Reference Interval Normal <150 mg/dL Borderline high 150 - 199 mg/dL High 200 - 499 mg/dL Very High > or = 500 mg/dL Laboratory - Chemistry and C hemistry - challengeOrdered By: Stefani Ball on 08-17-2023 ALT [Catalytic activity/Vol] 16 U/L 13-56 [facility] Cholesterol in HDL [Mass/Vol] 46 mg/dL >40 [facility] Comment on above: The drugs N-Acetylcy steine and Metamizole may falsely depress this assay. Reference Range HDL <40 mg/dL Low HDL Cholesterol HDL >or= 60 mg/dL High HDL Cholesterol Cholesterol in LDL [Mass/Vol] 81 mg/dL 0-130 [facility] CO2 [Moles/Vol] 25.0 mmol/L 21.0-32.0 [facility] Urea nitrogen/Creatinine [Mass ratio] 12.5 mg/mg 10-20 [facility] No Panel InformationOrdered By: Stefani Ball on 08-17-2023 Estimated GFR (MDRD) Amer 81 mL/min >60 [facility] Comment on above: GFR Calc Estimated GFR (MDRD) Non-Af Amer 67 mL/min >60 [facility] Comment on above: Non- GFR Calc VLDL Cholesterol 35 mg/dL 5-40 [facility] Serum or plasma calcium john urement (mass/volume)Ordered By: Stefani Ball on 08-17-2023 Calcium [Mass/Vol] 9.6 mg/dL 8.5-10.1 [facility] Serum or plasma creatinine m easurement (mass/volume)Ordered By: Stefani Ball on 08-17-2023 Creatinine [Mass/Vol] 0.88 mg/dL 0.55-1.02 [facility] Comment on above: The validity of the calculated GFR & GFRAA in patients over 70 years has not been determined. Clinical correlation is essential. Serum or plasma urea nitroge n measurement (mass/volume)Ordered By: Stefani Ball on 08-17-2023 Urea nitrogen [Mass/Vol] 11 mg/dL 7-18 [facility] Thin prep Papanicolaou smear with manual screeningOrdered By: Stefani Ball on 08-17-2023 Protein (U) [Mass/Vol] 20.2 mg/dL 0.0-11.8 [facility] Thin prep Papanicolaou smear with manual screening 19 U/L 15-37 [facility] Thin prep Papanicolaou smear with manual screening 5 5-15 [facility] Urine creatinine measurement (mass/volume)Ordered By: Stefani Ball on 08-17-2023 Creatinine (U) [Mass/Vol] 192.00 mg/dL NO RANGE EST. [facility] Urine protein/creatinine mas s ratioOrdered By: Stefani Ball on 08-17-2023 Protein/Creatinine (U) [Mass ratio] 105 mg/g CRE 0-200 [facility] Absolute lymphocyte countOrd ered By: Se Valencia on 02-19-2023 Lymphocytes Auto (Unsp spec) [#/Vol] 1.75 10*3/uL 0.83-4.51 [facility] Basophil percentageOrdered B y: Se Valencia on 02-19-2023 Basophils/100 WBC (Bld) 0.2 % 0-1 [facility] Chloride [Moles/Vol] 101 mmol/L 98-107 [facility] Eosin[facility]/100 WBC (Bld) 3.3 % 0-5 [facility] Glucose [Mass/Vol] 112 mg/dL 74-106 [facility] Comment on above: Fasting Glucose resu lt from 100 to 125 mg/dL suggests IMPAIRED HOMEOSTASIS per A.D.A. criteria. Neutrophils (Bld) [#/Vol] 9.8 10*3/uL 2.0-7.7 [facility] Neutrophils/100 WBC (Bld) 73.6 % 47-70 [facility] Potassium [Moles/Vol] 3.3 mmol/L 3.5-5.1 [facility] Sodium [Moles/Vol] 133 mmol/L 136-145 [facility] WBC (Bld) [#/Vol] 13.3 10*3/uL 4.4-11.0 [facility] Blood erythrocytes count (nu mber/volume)Ordered By: Se Valencia on 02-19-2023 RBC (Bld) [#/Vol] 3.12 10*6/uL 4.2-5.4 [facility] Blood hemoglobin measurement (mass/volume)Ordered By: Se Valencia on 02-19-2023 Hemoglobin (Bld) [Mass/Vol] 9.2 g/dL 12.0-15.0 [facility] Blood lymphocytes/100 leukoc ytesOrdered By: Se Valencia on 02-19-2023 Lymphocytes/100 WBC (Bld) 13.2 % 19-41 [facility] Blood monocytes/100 leukocyt esOrdered By: Se Valencia on 02-19-2023 Monocytes/100 WBC (Bld) 8.9 % 0-10 [facility] Blood platelet mean volumeOr dered By: Se Valencia on 02-19-2023 Platelet mean volume (Bld) [Entitic vol] 10.3 fL 6.2-12.0 [facility] Determination of erythrocyte mean corpuscular volume (MCV)Ordered By: Se Valencia on 02-19-2023 MCV (RBC) [Entitic vol] 91.3 fL 81-99 [facility] Erythrocyte sedimentation ra teOrdered By: Se Valencia on 02-19-2023 ESR (Bld) [Velocity] 24 mm/h 0-30 [facility] Hematocrit Auto (Bld) [Volum e fraction]Ordered By: Se Valencia on 02-19-2023 Hematocrit (Bld) [Volume fraction] 28.5 % 37-47 [facility] Laboratory - Chemistry and C hemistry - challengeOrdered By: Se Valencia on 02-19-2023 CO2 [Moles/Vol] 27.0 mmol/L 21.0-32.0 [facility] Urea nitrogen/Creatinine [Mass ratio] 17.0 mg/mg 10-20 [facility] Laboratory - Hematology and Cell countsOrdered By: Se Valencia on 02-19-2023 Erythrocyte distribution width (RBC) [Entitic vol] 45.3 fL 35.1-43.9 [facility] Erythrocyte distribution width (RBC) [Ratio] 13.6 % 11.6-14.6 [facility] Immature granulocytes/100 WBC (Bld) 0.800 % 0.0-0.9 [facility] Comment on above: IG% - Immature Granu locytes (promyelocytes, myelocytes and metamyelocytes) > 1% indicates that a LEFT SHIFT is Present. MCH (RBC) [Entitic mass] 29.5 pg 27.0-32.0 [facility] Nucleated RBC/100 WBC (Bld) [Ratio] 0 % 0-5 [facility] Laboratory - Microbiology an d Antimicrobial susceptibilityOrdered By: Se Valencia on 02-19-2023 Bacteria identified Cx Nom (Bld) No growth in 5 days. [facility] MCHC Auto (RBC) [Mass/Vol]Or dered By: Se Valencia on 02-19-2023 MCHC (RBC) [Mass/Vol] 32.3 g/dL 32-36 [facility] No Panel InformationOrdered By: Se Valencia on 02-19-2023 Estimated Creatinine Clearance Calc 52.05 ml/min [facility] Estimated GFR (MDRD) Amer 88 mL/min >60 [facility] Comment on above: GFR Calc Estimated GFR (MDRD) Non-Af Amer 73 mL/min >60 [facility] Comment on above: Non- GFR Calc Platelets bldOrdered By: Kenny Valencia on 02-19-2023 Platelets (Bld) [#/Vol] 247 10*3/uL 150-450 [facility] Serum or plasma C reactive p rotein measurement (mass/volume)Ordered By: Se Valencia on 02-19-2023 CRP [Mass/Vol] 197.00 mg/L 0.0-3.0 [facility] Comment on above: C-Reactive Protein ( CRP) provides useful information for thediagnosis, therapy and monitoring of inflammatory processesand associated diseases. For the evaluation of Relative Riskfor Cardiovascular Disease, a High Sensitivity CRP (HSCRP)should be ordered. Serum or plasma calcium john urement (mass/volume)Ordered By: Se Valencia on 02-19-2023 Calcium [Mass/Vol] 10.0 mg/dL 8.5-10.1 [facility] Serum or plasma creatinine m easurement (mass/volume)Ordered By: Se Valencia on 02-19-2023 Creatinine [Mass/Vol] 0.82 mg/dL 0.55-1.02 [facility] Comment on above: The validity of the calculated GFR & GFRAA in patients over 70 years has not been determined. Clinical correlation is essential. Serum or plasma urea nitroge n measurement (mass/volume)Ordered By: Se Valencia on 02-19-2023 Urea nitrogen [Mass/Vol] 14 mg/dL 7-18 [facility] Thin prep Papanicolaou smear with manual screeningOrdered By: Se Valencia on 02-19-2023 Thin prep Papanicolaou smear with manual screening 5 5-15 [facility] .Auto Diffon 02-18-2023 Basophil, Absolute 0.1 10 3/mcL Normal 0.0-0.2 [facility] ([place]) Comment on above: Performed By: #### A DIEUDONNE, ADIFF, GFR, BMP, CBC #### [address] [address] Basophils/100 WBC (Bld) 0.3 % Normal 0.0-2.5 A [facility] ([place]) Comment on above: Performed By: #### A DIEUDONNE, ADIFF, GFR, BMP, CBC #### [address] [address] Eosinophil, Absolute 0.0 10 3/mcL Normal 0.0-0.4 [facility] ([place]) Comment on above: Performed By: #### A DIEUDONNE, ADIFF, GFR, BMP, CBC #### [address] [address] Eosinophils/100 WBC (Bld) 0.1 % Normal 0.0-7.0 [facility] ([place]) Comment on above: Performed By: #### A DIEUDONNE, ADIFF, GFR, BMP, CBC #### [address] [address] Lymphocyte, Absolute 1.7 10 3/mcL Normal 0.8-3.9 [facility] ([place]) Comment on above: Performed By: #### A DIEUDONNE, ADIFF, GFR, BMP, CBC #### [address] [address] Lymphocytes/100 WBC (Bld) 9.8 % Low 10.0-50.0 [facility] ([place]) Comment on above: Performed By: #### A DIEUDONNE, ADIFF, GFR, BMP, CBC #### [address] [address] Monocyte, Absolute 1.3 10 3/mcL High 0.2-1.0 [facility] ([place]) Comment on above: Performed By: #### A DIEUDONNE, ADIFF, GFR, BMP, CBC #### [address] [address] Monocytes/100 WBC (Bld) 7.6 % Normal 1.7-13.0 A [facility] ([place]) Comment on above: Performed By: #### A DIEUDONNE, ADIFF, GFR, BMP, CBC #### [address] [address] Neutrophils/100 WBC (Bld) 82.2 % High 37.0-80.0 [facility] ([place]) Comment on above: Performed By: #### A DIEUDONNE, ADIFF, GFR, BMP, CBC #### [address] [address] .GFRon 02-18-2023 GFR Non- 47 ml/min/1.73sqm Normal [facility] ([place]) Comment on above: Result Comment: GFR Population mean for , Non- Americans Ages 20-29 = 116 mL/min/1.73 sq.m. Ages 30-39 = 107 mL/min/1.73 sq.m. Ages 40-49 = 99 mL/min/1.73 sq.m. Ages 50-59 = 93 mL/min/1.73 sq.m. Ages 60-69 = 85 mL/min/1.73 sq.m. Ages 70+ = 75 mL/min/1.73 sq.m. Chronic Kidney Disease: Less than 60 mL/min/1.73 square meters End Stage Renal Disease: Less than 15 mL/min/1.73 square meters Performed By: #### A DIEUDONNE, ADIFF, GFR, BMP, CBC #### [address] [address] GFR 57 ml/min/1.73sqm Normal [facility] ([place]) Comment on above: Result Comment: GFR Population mean for , Non- Americans Ages 20-29 = 116 mL/min/1.73 sq.m. Ages 30-39 = 107 mL/min/1.73 sq.m. Ages 40-49 = 99 mL/min/1.73 sq.m. Ages 50-59 = 93 mL/min/1.73 sq.m. Ages 60-69 = 85 mL/min/1.73 sq.m. Ages 70+ = 75 mL/min/1.73 sq.m. Chronic Kidney Disease: Less than 60 mL/min/1.73 square meters End Stage Renal Disease: Less than 15 mL/min/1.73 square meters Performed By: #### A DIEUDONNE, ADIFF, GFR, BMP, CBC #### [address] [address] .NEUABSon 02-18-2023 Neutrophil, Absolute 14.5 10 3/mcL High 2.9-6.2 A [facility] ([place]) Comment on above: Performed By: #### A DIEUDONNE, ADIFF, GFR, BMP, CBC #### [address] [address] BMPon 02-18-2023 BUN/Creatinine Ratio 19 ratio Normal 7-27 [facility] ([place]) Comment on above: Performed By: #### A DIEUDONNE, ADIFF, GFR, BMP, CBC #### [address] [address] Calcium [Mass/Vol] 8.7 mg/dL Normal 8.4-10.2 [facility] ([place]) Comment on above: Performed By: #### A DIEUDONNE, ADIFF, GFR, BMP, CBC #### [address] [address] Chloride [Moles/Vol] 107 mmol/L Normal 98-107 [facility] ([place]) Comment on above: Performed By: #### A DIEUDONNE, ADIFF, GFR, BMP, CBC #### [address] [address] CO2 [Moles/Vol] 29 mmol/L Normal 23-31 [facility] ([place]) Comment on above: Performed By: #### A DIEUDONNE, ADIFF, GFR, BMP, CBC #### [address] [address] Creatinine [Mass/Vol] 1.14 mg/dL High 0.55-1.02 [facility] ([place]) Comment on above: Performed By: #### A DIEUDONNE, ADIFF, GFR, BMP, CBC #### [address] [address] Electrolyte Balance 7.0 mEq/L Normal 4.0-15.0 [facility] ([place]) Comment on above: Performed By: #### A DIEUDONNE, ADIFF, GFR, BMP, CBC #### [address] [address] Glucose [Mass/Vol] 125 mg/dL High 83-110 [facility] ([place]) Comment on above: Performed By: #### A DIEUDONNE, ADIFF, GFR, BMP, CBC #### [address] [address] Potassium [Moles/Vol] 4.9 mmol/L Normal 3.5-5.1 [facility] ([place]) Comment on above: Performed By: #### A DIEUDONNE, ADIFF, GFR, BMP, CBC #### [address] [address] Sodium [Moles/Vol] 143 mmol/L Normal 136-145 [facility] ([place]) Comment on above: Performed By: #### A DIEUDONNE, ADIFF, GFR, BMP, CBC #### [address] [address] Urea nitrogen [Mass/Vol] 22 mg/dL High 7-18 [facility] ([place]) Comment on above: Performed By: #### A DIEUDONNE, ADIFF, GFR, BMP, CBC #### [address] [address] CBCon 02-18-2023 Erythrocyte distribution width (RBC) [Ratio] 14.2 % Normal 11.5-14.5 [facility] ([place]) Comment on above: Performed By: #### A DIEUDONNE, ADIFF, GFR, BMP, CBC #### [address] [address] Hematocrit (Bld) [Volume fraction] 28.6 % Low 37.0-47.0 [facility] ([place]) Comment on above: Performed By: #### A DIEUDONNE, ADIFF, GFR, BMP, CBC #### [address] [address] Hgb 9.6 G/dL Low 12.0-16.0 [facility] ([place]) Comment on above: Performed By: #### A DIEUDONNE, ADIFF, GFR, BMP, CBC #### [address] [address] MCH (RBC) [Entitic mass] 29.1 pg Normal 27.0-31.2 [facility] ([place]) Comment on above: Performed By: #### A DIEUDONNE, ADIFF, GFR, BMP, CBC #### [address] [address] MCHC 33.7 G/dL Normal 33.0-37.0 [facility] ([place]) Comment on above: Performed By: #### A DIEUDONNE, ADIFF, GFR, BMP, CBC #### [address] [address] MCV (RBC) [Entitic vol] 86.4 fL Normal 80.0-94.0 A [facility] ([place]) Comment on above: Performed By: #### A DIEUDONNE, ADIFF, GFR, BMP, CBC #### [place] [id number] Platelet 273 10 3/mcL Normal 130-400 [facility] ([place]) Comment on above: Performed By: #### A DIEUDONNE, ADIFF, GFR, BMP, CBC #### [address] [address] Platelet mean volume (Bld) [Entitic vol] 8.4 fL Normal 7.4-10.4 [facility] ([place]) Comment on above: Performed By: #### A DIEUDONNE, ADIFF, GFR, BMP, CBC #### [address] [address] RBC 3.31 10 6/mcL Low 4.20-5.40 [facility] ([place]) Comment on above: Performed By: #### A DIEUDONNE, ADIFF, GFR, BMP, CBC #### [address] [address] WBC 17.6 10 3/mcL High 4.6-10.8 [facility] ([place]) Comment on above: Performed By: #### A DIEUDONNE, ADIFF, GFR, BMP, CBC #### [address] [address] LABORATORYOrdered By: SYSTEM SYSTEM on 02-18-2023 Basophil, Absolute 0.1 103/mcL Invalid Interpretation Code 0.0 - 0.2 10^3/mcL AO Workflow SS Basophils/100 WBC (Bld) 0.3 % Invalid Interpretation Code 0.0 - 2.5 % AO Workflow SS Calcium [Mass/Vol] 8.7 mg/dL Invalid Interpretation Code 8.4 - 10.2 mg/dL AO ADM SS Chloride [Moles/Vol] 107 mmol/L Invalid Interpretation Code 98 - 107 mmol/L AO ADM SS CO2 [Moles/Vol] 29 mmol/L Invalid Interpretation Code 23 - 31 mmol/L AO ADM SS Creatinine [Mass/Vol] 1.14 mg/dL Invalid Interpretation Code 0.55 - 1.02 mg/dL AO ADM SS Electrolyte Balance 7.0 mEq/L Invalid Interpretation Code 4.0 - 15.0 mEq/L AO ADM SS Eosinophil, Absolute 0.0 103/mcL Invalid Interpretation Code 0.0 - 0.4 10^3/mcL AO Workflow SS Eosinophils/100 WBC (Bld) 0.1 % Invalid Interpretation Code 0.0 - 7.0 % AO Workflow SS Erythrocyte distribution width (RBC) [Ratio] 14.2 % Invalid Interpretation Code 11.5 - 14.5 % AO Workflow SS GFR/1.73 sq M.predicted among blacks MDRD (S/P/Bld) [Vol rate/Area] 57 ml/min/1.73sqm Invalid Interpretation Code AO Chemistry S Comment on above: Interpretive Data: GFR Population mean for , Non- Americans Ages 20-29 = 116 mL/min/1.73 sq.m. Ages 30-39 = 107 mL/min/1.73 sq.m. Ages 40-49 = 99 mL/min/1.73 sq.m. Ages 50-59 = 93 mL/min/1.73 sq.m. Ages 60-69 = 85 mL/min/1.73 sq.m. Ages 70+ = 75 mL/min/1.73 sq.m. Chronic Kidney Disease: Less than 60 mL/min/1.73 square meters End Stage Renal Disease: Less than 15 mL/min/1.73 square meters GFR/1.73 sq M.predicted among non-blacks MDRD (S/P/Bld) [Vol rate/Area] 47 ml/min/1.73sqm Invalid Interpretation Code AO Chemistry S Comment on above: Interpretive Data: GFR Population mean for , Non- Americans Ages 20-29 = 116 mL/min/1.73 sq.m. Ages 30-39 = 107 mL/min/1.73 sq.m. Ages 40-49 = 99 mL/min/1.73 sq.m. Ages 50-59 = 93 mL/min/1.73 sq.m. Ages 60-69 = 85 mL/min/1.73 sq.m. Ages 70+ = 75 mL/min/1.73 sq.m. Chronic Kidney Disease: Less than 60 mL/min/1.73 square meters End Stage Renal Disease: Less than 15 mL/min/1.73 square meters Glucose [Mass/Vol] 125 mg/dL Invalid Interpretation Code 83 - 110 mg/dL AO ADM SS Hematocrit (Bld) [Volume fraction] 28.6 % Invalid Interpretation Code 37.0 - 47.0 % AO Workflow SS Hemoglobin (Bld) [Mass/Vol] 9.6 G/dL Invalid Interpretation Code 12.0 - 16.0 G/dL AO Workflow SS Lymphocyte, Absolute 1.7 103/mcL Invalid Interpretation Code 0.8 - 3.9 10^3/mcL AO Workflow SS Lymphocytes/100 WBC (Bld) 9.8 % Invalid Interpretation Code 10.0 - 50.0 % AO Workflow SS MCH (RBC) [Entitic mass] 29.1 pg Invalid Interpretation Code 27.0 - 31.2 pg AO Workflow SS MCHC 33.7 G/dL Invalid Interpretation Code 33.0 - 37.0 G/dL AO Workflow SS MCV (RBC) [Entitic vol] 86.4 fL Invalid Interpretation Code 80.0 - 94.0 fL AO Workflow SS Monocyte, Absolute 1.3 103/mcL Invalid Interpretation Code 0.2 - 1.0 10^3/mcL AO Workflow SS Monocytes/100 WBC (Bld) 7.6 % Invalid Interpretation Code 1.7 - 13.0 % AO Workflow SS Neutrophil, Absolute 14.5 103/mcL Invalid Interpretation Code 2.9 - 6.2 10^3/mcL AO Workflow SS Neutrophils/100 WBC (Bld) 82.2 % Invalid Interpretation Code 37.0 - 80.0 % AO Workflow SS Platelet mean volume (Bld) [Entitic vol] 8.4 fL Invalid Interpretation Code 7.4 - 10.4 fL AO Workflow SS Platelets (Bld) [#/Vol] 273 103/mcL Invalid Interpretation Code 130 - 400 10^3/mcL AO Workflow SS Potassium [Moles/Vol] 4.9 mmol/L Invalid Interpretation Code 3.5 - 5.1 mmol/L AO ADM SS RBC (Bld) [#/Vol] 3.31 106/mcL Invalid Interpretation Code 4.20 - 5.40 10^6/mcL AO Workflow SS Sodium [Moles/Vol] 143 mmol/L Invalid Interpretation Code 136 - 145 mmol/L AO ADM SS Urea nitrogen [Mass/Vol] 22 mg/dL Invalid Interpretation Code 7 - 18 mg/dL AO ADM SS Urea nitrogen/Creatinine [Mass ratio] 19 ratio Invalid Interpretation Code 7 - 27 ratio AO ADM SS WBC (Bld) [#/Vol] 17.6 103/mcL Invalid Interpretation Code 4.6 - 10.8 10^3/mcL AO Workflow SS Gel ABOon 02-17-2023 ABO/Rh Interp Negative Invalid Interpretation Code [facility] ([place]) Comment on above: Performed By: #### A DIEUDONNE, ADIFF, GFR, BMP, CBC #### [address] [address] Gel ABSon 02-17-2023 Antibody Screen Gel Negative Normal [facility] ([place]) Comment on above: Performed By: #### A DIEUDONNE, ADIFF, GFR, BMP, CBC #### [address] [address] LABORATORYOrdered By: Donna Cuevas on 02-17-2023 ABO/Rh Interp Negative Invalid Interpretation Code AO BB SS Antibody Screen Gel Negative ABSC (02/17/23 11:01 AM) Invalid Interpretation Code AO BB SS XR KNEE 1 OR 2 VIEWS LEFTon 02-17-2023 XR KNEE 1 OR 2 VIEWS LEFT ORIGINAL EXAMINATION: TWO XRAY VIEWS OF THE [...] Sign Date: 02/17/2023 3:46:20 PM Ordering Provider: ROGERIO Lynch [facility]) .Auto Diffon 01-29-2023 Basophil, Absolute 0.0 10 3/mcL Normal 0.0-0.2 [facility] ([place]) Comment on above: Performed By: #### A DIEUDONNE, ABOG, GFR, ADIFF, ALB, BMP, CBC, ANSG #### [address] [address] Basophils/100 WBC (Bld) 0.4 % Normal 0.0-2.5 A [facility] ([place]) Comment on above: Performed By: #### A DIEUDONNE, ABOG, GFR, ADIFF, ALB, BMP, CBC, ANSG #### [address] [address] Eosinophil, Absolute 0.2 10 3/mcL Normal 0.0-0.4 [facility] ([place]) Comment on above: Performed By: #### A DIEUDONNE, ABOG, GFR, ADIFF, ALB, BMP, CBC, ANSG #### [address] [address] Eosinophils/100 WBC (Bld) 2.4 % Normal 0.0-7.0 [facility] ([place]) Comment on above: Performed By: #### A DIEUDONNE, ABOG, GFR, ADIFF, ALB, BMP, CBC, ANSG #### [address] [address] Lymphocyte, Absolute 3.2 10 3/mcL Normal 0.8-3.9 [facility] ([place]) Comment on above: Performed By: #### A DIEUDONNE, ABOG, GFR, ADIFF, ALB, BMP, CBC, ANSG #### [address] [address] Lymphocytes/100 WBC (Bld) 31.4 % Normal 10.0-50.0 [facility] ([place]) Comment on above: Performed By: #### A DIEUDONNE, ABOG, GFR, ADIFF, ALB, BMP, CBC, ANSG #### [address] [address] Monocyte, Absolute 0.9 10 3/mcL Normal 0.2-1.0 [facility] ([place]) Comment on above: Performed By: #### A DIEUDONNE, ABOG, GFR, ADIFF, ALB, BMP, CBC, ANSG #### [address] [address] Monocytes/100 WBC (Bld) 8.4 % Normal 1.7-13.0 A [facility] ([place]) Comment on above: Performed By: #### A DIEUDONNE, ABOG, GFR, ADIFF, ALB, BMP, CBC, ANSG #### [address] [address] Neutrophils/100 WBC (Bld) 57.4 % Normal 37.0-80.0 [facility] ([place]) Comment on above: Performed By: #### A DIEUDONNE, ABOG, GFR, ADIFF, ALB, BMP, CBC, ANSG #### [address] [address] .GFRon 01-29-2023 GFR 73 ml/min/1.73sqm Normal [facility] ([place]) Comment on above: Result Comment: GFR Population mean for , Non- Americans Ages 20-29 = 116 mL/min/1.73 sq.m. Ages 30-39 = 107 mL/min/1.73 sq.m. Ages 40-49 = 99 mL/min/1.73 sq.m. Ages 50-59 = 93 mL/min/1.73 sq.m. Ages 60-69 = 85 mL/min/1.73 sq.m. Ages 70+ = 75 mL/min/1.73 sq.m. Chronic Kidney Disease: Less than 60 mL/min/1.73 square meters End Stage Renal Disease: Less than 15 mL/min/1.73 square meters Performed By: #### A DIEUDONNE, ADIFF, GFR, BMP, CBC #### [address] [address] GFR Non- 60 ml/min/1.73sqm Normal [facility] ([place]) Comment on above: Result Comment: GFR Population mean for , Non- Americans Ages 20-29 = 116 mL/min/1.73 sq.m. Ages 30-39 = 107 mL/min/1.73 sq.m. Ages 40-49 = 99 mL/min/1.73 sq.m. Ages 50-59 = 93 mL/min/1.73 sq.m. Ages 60-69 = 85 mL/min/1.73 sq.m. Ages 70+ = 75 mL/min/1.73 sq.m. Chronic Kidney Disease: Less than 60 mL/min/1.73 square meters End Stage Renal Disease: Less than 15 mL/min/1.73 square meters Performed By: #### A DIEUDONNE, ADIFF, GFR, BMP, CBC #### [address] [address] .NEUABSon 01-29-2023 Neutrophil, Absolute 5.8 10 3/mcL Normal 2.9-6.2 [facility] ([place]) Comment on above: Performed By: #### A DIEUDONNE, ABOG, GFR, ADIFF, ALB, BMP, CBC, ANSG #### [address] [address] ALBon 01-29-2023 Albumin Level 3.8 G/dL Normal 3.4-4.8 [facility] ([place]) Comment on above: Performed By: #### A DIEUDONNE, ADIFF, GFR, BMP, CBC #### [address] [address] BMPon 01-29-2023 BUN/Creatinine Ratio 25 ratio Normal 7-27 [facility] ([place]) Comment on above: Performed By: #### A DIEUDONNE, ABOG, GFR, ADIFF, ALB, BMP, CBC, ANSG #### [address] [address] Calcium [Mass/Vol] 9.6 mg/dL Normal 8.4-10.2 [facility] ([place]) Comment on above: Performed By: #### A DIEUDONNE, ABOG, GFR, ADIFF, ALB, BMP, CBC, ANSG #### [address] [address] Chloride [Moles/Vol] 103 mmol/L Normal 98-107 [facility] ([place]) Comment on above: Performed By: #### A DIEUDONNE, ABOG, GFR, ADIFF, ALB, BMP, CBC, ANSG #### [address] [address] CO2 [Moles/Vol] 28 mmol/L Normal 23-31 [facility] ([place]) Comment on above: Performed By: #### A DIEUDONNE, ABOG, GFR, ADIFF, ALB, BMP, CBC, ANSG #### [address] [address] Creatinine [Mass/Vol] 0.92 mg/dL Normal 0.55-1.02 [facility] ([place]) Comment on above: Performed By: #### A DIEUDONNE, ABOG, GFR, ADIFF, ALB, BMP, CBC, ANSG #### [address] [address] Electrolyte Balance 11.0 mEq/L Normal 4.0-15.0 [facility] ([place]) Comment on above: Performed By: #### A DIEUDONNE, ABOG, GFR, ADIFF, ALB, BMP, CBC, ANSG #### [address] [address] Glucose [Mass/Vol] 92 mg/dL Normal 83-110 [facility] ([place]) Comment on above: Performed By: #### A DIEUDONNE, ABOG, GFR, ADIFF, ALB, BMP, CBC, ANSG #### [address] [address] Potassium [Moles/Vol] 4.1 mmol/L Normal 3.5-5.1 [facility] ([place]) Comment on above: Performed By: #### A DIEUDONNE, ABOG, GFR, ADIFF, ALB, BMP, CBC, ANSG #### [address] [address] Sodium [Moles/Vol] 142 mmol/L Normal 136-145 [facility] ([place]) Comment on above: Performed By: #### A DIEUDONNE, ABOG, GFR, ADIFF, ALB, BMP, CBC, ANSG #### [address] [address] Urea nitrogen [Mass/Vol] 23 mg/dL High -18 [facility] ([place]) Comment on above: Performed By: #### A DIEUDONNE, ABOG, GFR, ADIFF, ALB, BMP, CBC, ANSG #### [address] [address] CBCon 01-29-2023 Erythrocyte distribution width (RBC) [Ratio] 14.2 % Normal 11.5-14.5 [facility] ([place]) Comment on above: Order Comment: Pre-A dmission Testing Performed By: #### A DIEUDONNE, ABOG, GFR, ADIFF, ALB, BMP, CBC, ANSG #### [address] [address] Hematocrit (Bld) [Volume fraction] 37.1 % Normal 37.0-47.0 [facility] ([place]) Comment on above: Order Comment: Pre-A dmission Testing Performed By: #### A DIEUDONNE, ABOG, GFR, ADIFF, ALB, BMP, CBC, ANSG #### [address] [address] Hgb 12.2 G/dL Normal 12.0-16.0 [facility] ([place]) Comment on above: Order Comment: Pre-A dmission Testing Performed By: #### A DIEUDONNE, ABOG, GFR, ADIFF, ALB, BMP, CBC, ANSG #### [address] [address] MCH (RBC) [Entitic mass] 28.6 pg Normal 27.0-31.2 [facility] ([place]) Comment on above: Order Comment: Pre-A dmission Testing Performed By: #### A DIEUDONNE, ABOG, GFR, ADIFF, ALB, BMP, CBC, ANSG #### [address] [address] MCHC 32.9 G/dL Low 33.0-37.0 [facility] ([place]) Comment on above: Order Comment: Pre-A dmission Testing Performed By: #### A DIEUDONNE, ABOG, GFR, ADIFF, ALB, BMP, CBC, ANSG #### [address] [address] MCV (RBC) [Entitic vol] 86.8 fL Normal 80.0-94.0 A [facility] ([place]) Comment on above: Order Comment: Pre-A dmission Testing Performed By: #### A DIEUDONNE, ABOG, GFR, ADIFF, ALB, BMP, CBC, ANSG #### [address] [address] Platelet 296 10 3/mcL Normal 130-400 [facility] ([place]) Comment on above: Order Comment: Pre-A dmission Testing Performed By: #### A DIEUDONNE, ABOG, GFR, ADIFF, ALB, BMP, CBC, ANSG #### [address] [address] Platelet mean volume (Bld) [Entitic vol] 8.8 fL Normal 7.4-10.4 [facility] ([place]) Comment on above: Order Comment: Pre-A dmission Testing Performed By: #### A DIEUDONNE, ABOG, GFR, ADIFF, ALB, BMP, CBC, ANSG #### [address] [address] RBC 4.28 10 6/mcL Normal 4.20-5.40 [facility] ([place]) Comment on above: Order Comment: Pre-A dmission Testing Performed By: #### A DIEUDONNE, ABOG, GFR, ADIFF, ALB, BMP, CBC, ANSG #### [address] [address] WBC 10.2 10 3/mcL Normal 4.6-10.8 [facility] ([place]) Comment on above: Order Comment: Pre-A dmission Testing Performed By: #### A DIEUDONNE, ABOG, GFR, ADIFF, ALB, BMP, CBC, ANSG #### [place] [id number] [place], [place] [address] CT KNEE W/O CONTRAST LEFTon 01-29-2023 CT KNEE W/O CONTRAST LEFT ORIGINAL EXAMINATION: CT OF THE LEFT KNEE [...] Partial medial meniscal body extrusion. There is [id number] lateral femorotibial compartment joint space narrowing with [...] Sign Date: 01/29/2023 3:01:14 PM Ordering Provider: ROGERIO PHILLIPS Normal [facility] ([place]) Gel ABOon 01-29-2023 ABO/Rh Interp Negative Invalid Interpretation Code [facility]) Comment on above: Performed By: #### A DIEUDONNE, ADIFF, GFR, BMP, CBC #### [id number] [place], [place] [address] Gel ABSon 01-29-2023 Antibody Screen Gel Negative [facility] ([place]) Comment on above: Performed By: #### A DIEUDONNE, ADIFF, GFR, BMP, CBC #### [address] [address] LABORATORYOrdered By: Abbie Perez on 01-29-2023 ABO/Rh Interp Negative Invalid Interpretation Code AO BB SS Antibody Screen Gel Negative ABSC (01/29/23 2:29 PM) Invalid Interpretation Code AO BB SS LABORATORYOrdered By: SYSTEM SYSTEM on 01-29-2023 Albumin BCP dye [Mass/Vol] 3.8 G/dL Invalid Interpretation Code 3.4 - 4.8 G/dL AO ADM SS Basophil, Absolute 0.0 103/mcL Invalid Interpretation Code 0.0 - 0.2 10^3/mcL AO Workflow SS Basophils/100 WBC (Bld) 0.4 % Invalid Interpretation Code 0.0 - 2.5 % AO Workflow SS Calcium [Mass/Vol] 9.6 mg/dL Invalid Interpretation Code 8.4 - 10.2 mg/dL AO ADM SS Chloride [Moles/Vol] 103 mmol/L Invalid Interpretation Code 98 - 107 mmol/L AO ADM SS CO2 [Moles/Vol] 28 mmol/L Invalid Interpretation Code 23 - 31 mmol/L AO ADM SS Creatinine [Mass/Vol] 0.92 mg/dL Invalid Interpretation Code 0.55 - 1.02 mg/dL AO ADM SS Electrolyte Balance 11.0 mEq/L Invalid Interpretation Code 4.0 - 15.0 mEq/L AO ADM SS Eosinophil, Absolute 0.2 103/mcL Invalid Interpretation Code 0.0 - 0.4 10^3/mcL AO Workflow SS Eosinophils/100 WBC (Bld) 2.4 % Invalid Interpretation Code 0.0 - 7.0 % AO Workflow SS Erythrocyte distribution width (RBC) [Ratio] 14.2 % Invalid Interpretation Code 11.5 - 14.5 % AO Workflow SS GFR/1.73 sq M.predicted among blacks MDRD (S/P/Bld) [Vol rate/Area] 73 ml/min/1.73sqm Invalid Interpretation Code AO Chemistry S Comment on above: Interpretive Data: GFR Population mean for , Non- Americans Ages 20-29 = 116 mL/min/1.73 sq.m. Ages 30-39 = 107 mL/min/1.73 sq.m. Ages 40-49 = 99 mL/min/1.73 sq.m. Ages 50-59 = 93 mL/min/1.73 sq.m. Ages 60-69 = 85 mL/min/1.73 sq.m. Ages 70+ = 75 mL/min/1.73 sq.m. Chronic Kidney Disease: Less than 60 mL/min/1.73 square meters End Stage Renal Disease: Less than 15 mL/min/1.73 square meters GFR/1.73 sq M.predicted among non-blacks MDRD (S/P/Bld) [Vol rate/Area] 60 ml/min/1.73sqm Invalid Interpretation Code AO Chemistry S Comment on above: Interpretive Data: GFR Population mean for , Non- Americans Ages 20-29 = 116 mL/min/1.73 sq.m. Ages 30-39 = 107 mL/min/1.73 sq.m. Ages 40-49 = 99 mL/min/1.73 sq.m. Ages 50-59 = 93 mL/min/1.73 sq.m. Ages 60-69 = 85 mL/min/1.73 sq.m. Ages 70+ = 75 mL/min/1.73 sq.m. Chronic Kidney Disease: Less than 60 mL/min/1.73 square meters End Stage Renal Disease: Less than 15 mL/min/1.73 square meters Glucose [Mass/Vol] 92 mg/dL Invalid Interpretation Code 83 - 110 mg/dL AO ADM SS Hematocrit (Bld) [Volume fraction] 37.1 % Invalid Interpretation Code 37.0 - 47.0 % AO Workflow SS Hemoglobin (Bld) [Mass/Vol] 12.2 G/dL Invalid Interpretation Code 12.0 - 16.0 G/dL AO Workflow SS Lymphocyte, Absolute 3.2 103/mcL Invalid Interpretation Code 0.8 - 3.9 10^3/mcL AO Workflow SS Lymphocytes/100 WBC (Bld) 31.4 % Invalid Interpretation Code 10.0 - 50.0 % AO Workflow SS MCH (RBC) [Entitic mass] 28.6 pg Invalid Interpretation Code 27.0 - 31.2 pg AO Workflow SS MCHC 32.9 G/dL Invalid Interpretation Code 33.0 - 37.0 G/dL AO Workflow SS MCV (RBC) [Entitic vol] 86.8 fL Invalid Interpretation Code 80.0 - 94.0 fL AO Workflow SS Monocyte, Absolute 0.9 103/mcL Invalid Interpretation Code 0.2 - 1.0 10^3/mcL AO Workflow SS Monocytes/100 WBC (Bld) 8.4 % Invalid Interpretation Code 1.7 - 13.0 % AO Workflow SS Neutrophil, Absolute 5.8 103/mcL Invalid Interpretation Code 2.9 - 6.2 10^3/mcL AO Workflow SS Neutrophils/100 WBC (Bld) 57.4 % Invalid Interpretation Code 37.0 - 80.0 % AO Workflow SS Platelet mean volume (Bld) [Entitic vol] 8.8 fL Invalid Interpretation Code 7.4 - 10.4 fL AO Workflow SS Platelets (Bld) [#/Vol] 296 103/mcL Invalid Interpretation Code 130 - 400 10^3/mcL AO Workflow SS Potassium [Moles/Vol] 4.1 mmol/L Invalid Interpretation Code 3.5 - 5.1 mmol/L AO ADM SS RBC (Bld) [#/Vol] 4.28 106/mcL Invalid Interpretation Code 4.20 - 5.40 10^6/mcL AO Workflow SS Sodium [Moles/Vol] 142 mmol/L Invalid Interpretation Code 136 - 145 mmol/L AO ADM SS Urea nitrogen [Mass/Vol] 23 mg/dL Invalid Interpretation Code 7 - 18 mg/dL AO ADM SS Urea nitrogen/Creatinine [Mass ratio] 25 ratio Invalid Interpretation Code 7 - 27 ratio AO ADM SS WBC (Bld) [#/Vol] 10.2 103/mcL Invalid Interpretation Code 4.6 - 10.8 10^3/mcL AO Workflow SS LABORATORYOrdered By: Marquis Kauffman on 01-29-2023 MRSA DNA AME+probe Ql (Unsp spec) Not Detected 1 (01/29/23 2:29 PM) Invalid Interpretation Code Not Detected AH Auto Viro/Sero SS Comment on above: Result Comment: [place] [id number] MRSA PCR Int MRSA DNA not detecte d by Real-Time Polymerase Chain Reaction (PCR). A negative result may be due to intermittent colonization. Colonization may vary depending on patient treatment, patient status, or exposure to high-risk environments.As with all PCR based in vitro diagnostic tests, extremely low levels of target below the limit of detection of the assay may be detected, but results may not be reproducible. Invalid Interpretation Code AH Auto Viro/Sero SS MRSAPCRon 01-29-2023 MRSA (PCR) Not detected Normal Not Detected [facility] ([place]) Comment on above: Result Comment: [place] [id number] Performed By: #### A DIEUDONNE, ADIFF, GFR, BMP, CBC #### [address] [address] MRSA PCR Int Normal [facility] ([place] Comment on above: Result Comment: MRSA DNA not detected by Real-Time Polymerase Chain Reaction (PCR). A negative result may be due to intermittent colonization. Colonization may vary depending on patient treatment, patient status, or exposure to high-risk environments. As with all PCR based in vitro diagnostic tests, extremely low levels of target below the limit of detection of the assay may be detected, but results may not be reproducible. See Below Performed By: #### A DIEUDONNE, ADIFF, GFR, BMP, CBC #### [address] [address] Albumin Elph [Mass/Vol]Order ed By: Shiva Perkins on 01-20-2023 Albumin [Mass/Vol] 3.7 g/dL 2.9-4.4 [facility] Basophil percentageOrdered B y: Shiva Perkins on 01-20-2023 Basophil percentage Comment . [facility] Comment on above: No monoclonality det ected.Performed at: - [facility] [id number] Director: Issac Jensen PhD, Phone: [phone] Interpretation of serum or p lasma protein pattern by immunofixation (narrative resultOrdered By: Shiva Perkins on 01-20-2023 Protein Fractions Immunofixation Joseph [Interp] See comment [facility] Comment on above: Result: Not Observed No Panel InformationOrdered By: Shiva Perkins on 01-20-2023 Addendum Document Comment . [facility] Comment on above: Protein electrophore sis scan will follow via computer,mail, or mingler operator delivery. Serum [id number] measu rement by electrophoresisOrdered By: Shiva Perkins on 01-20-2023 Alpha 1 globulin Elph [Mass/Vol] 0.2 g/dL 0.0-0.4 [facility] Alpha 1 globulin Elph [Mass/Vol] 0.7 g/dL 0.4-1.0 [facility] Serum globulin measurement ( mass/volume)Ordered By: Shiva Perkins on 01-20-2023 Globulin (S) [Mass/Vol] 2.9 g/dL 2.2-3.9 [facility] Serum or plasma IgA measurem ent (mass/volume)Ordered By: Shiva Perkins 01-20-2023 IgA [Mass/Vol] 97 mg/dL 64-422 [facility] Serum or plasma IgG measurem ent (mass/volume)Ordered By: Shiva Perkins 01-20-2023 IgG [Mass/Vol] 1008 mg/dL [phone] [facility] Serum or plasma IgM measurem ent (mass/volume)Ordered By: Shiva Perkins 01-20-2023 IgM [Mass/Vol] 68 mg/dL 26-217 [facility] Serum or plasma beta globuli n measurement by electrophoresis (mass/volume)Ordered By: Shiva Perkins 01-20-2023 Beta globulin Elph [Mass/Vol] 1.0 g/dL 0.7-1.3 [facility] Serum or plasma gamma globul in measurement by electrophoresis (mass/volume)Ordered By: Shiva Perkins 01-20-2023 Gamma globulin Elph [Mass/Vol] 1.0 g/dL 0.4-1.8 [facility] Serum or plasma immunoelectr ophoresis interpretation (nominal result)Ordered By: Shiva Perkins on 01-20-2023 Interpretation IEP [Interp] Comment . [facility] Comment on above: No monoclonality det ected. Thin prep Papanicolaou smear with manual screeningOrdered By: Shiva Perkins on 01-20-2023 Thin prep Papanicolaou smear with manual screening 1.3 0.7-1.7 [facility] Total protein bloodOrdered B y: Shiva Perkins on 01-20-2023 Protein [Mass/Vol] 6.6 g/dL 6.0-8.5 [facility] Laboratory - Chemistry and C hemistry - challengeOrdered By: Shiva Perkins on 11-24-2022 Cobalamin (Vitamin B12) [Mass/Vol] 290 pg/mL 211-911 [facility] No Panel InformationOrdered By: Shiva Perkins on 11-24-2022 Free Lambda Light Chains, Quant 12.7 mg/L 5.7-26.3 [facility] Whole Blood Vitamin B1 Level 84.1 nmol/L 66.5-200.0 [facility] Comment on above: Performed at: [employer] [address] [id number] Director: Issac Jensen PhD, Phone: [phone] at: [employer] [id number] Director: Torin Dobson MD, Phone: [phone] No Panel InformationOrdered By: Stefani Ball on 11-24-2022 Free Triiodothyronine (T3) pg/dL 2.9 pg/mL 2.18-3.98 [facility] Thyroglobulin Antibody < 1.0 IU/mL 0.0-0.9 [facility] Comment on above: Thyroglobulin Antibo dy measured by Quantitative MedicineMethodologyPerformed at: [employer] [address] [id number] Director: Issac Jensen PhD, Phone: [phone] Thyroid Stimulating Hormone (TSH) 3.02 uIU/mL 0.358-3.74 [facility] Serum immunoglobulin kappa l ight chains/immunoglobulin lambda light chains mass ratioOrdered By: Shiva Perkins on 11-24-2022 Immunoglobulin light chains.kappa/Immunoglob ulin light chains.lambda (S) [Mass ratio] 1.63 0.26-1.65 [facility] Serum or plasma folate measu rement (mass/volume)Ordered By: Shiva Perkins on 11-24-2022 Folate [Mass/Vol] 7.30 ng/mL 3.1-55.4 [facility] Serum or plasma immunoglobul in kappa light chains measurement (mass/volume)Ordered By: Shiva Perkins on 11-24-2022 Immunoglobulin light chains.kappa [Mass/Vol] 20.7 mg/L 3.3-19.4 [facility] Basophil percentageOrdered B y: Noble Gloria on 09-22-2022 Chloride [Moles/Vol] 109 mmol/L 98-107 [facility] Glucose [Mass/Vol] 98 mg/dL 74-106 [facility] Potassium [Moles/Vol] 3.9 mmol/L 3.5-5.1 [facility] Sodium [Moles/Vol] 141 mmol/L 136-145 [facility] Laboratory - Chemistry and C hemistry - challengeOrdered By: Noble Gloria on 09-22-2022 CO2 [Moles/Vol] 28.0 mmol/L 21.0-32.0 [facility] Urea nitrogen/Creatinine [Mass ratio] 19.8 mg/mg 10-20 [facility] No Panel InformationOrdered By: Noble Gloria on 09-22-2022 Estimated Creatinine Clearance Calc 52.70 ml/min [facility] Estimated GFR (MDRD) Amer 90 mL/min >60 [facility] Comment on above: GFR Calc Estimated GFR (MDRD) Non-Af Amer 74 mL/min >60 [facility] Comment on above: Non- GFR Calc Serum or plasma calcium john urement (mass/volume)Ordered By: Noble Gloria on 09-22-2022 Calcium [Mass/Vol] 9.2 mg/dL 8.5-10.1 [facility] Serum or plasma creatinine m easurement (mass/volume)Ordered By: Noble Gloria on 09-22-2022 Creatinine [Mass/Vol] 0.81 mg/dL 0.55-1.02 [facility] Comment on above: The validity of the calculated GFR & GFRAA in patients over 70 years has not been determined. Clinical correlation is essential. Serum or plasma urea nitroge n measurement (mass/volume)Ordered By: Noble Gloria on 09-22-2022 Urea nitrogen [Mass/Vol] 16 mg/dL 7-18 [facility] Thin prep Papanicolaou smear with manual screeningOrdered By: Noble Gloria on 09-22-2022 Thin prep Papanicolaou smear with manual screening 4 5-15 [facility] Basophil percentageOrdered B y: Dr. Perkins on 08-12-2022 Bilirubin [Mass/Vol] 0.30 mg/dL 0.20-1.00 [facility] Comment on above: For patients on eltr ombopag therapy, use of Dimension [place] TBIL is not recommended. Chloride [Moles/Vol] 108 mmol/L 98-107 [facility] Cholesterol [Mass/Vol] 138 mg/dL <200 [facility] Comment on above: <200 mg/dL Desirable 200-240 mg/dL Borderline >240 mg/dL High Risk Glucose [Mass/Vol] 93 mg/dL 74-106 [facility] Potassium [Moles/Vol] 3.4 mmol/L 3.5-5.1 [facility] Protein [Mass/Vol] 7.6 g/dL 6.4-8.2 [facility] Sodium [Moles/Vol] 142 mmol/L 136-145 [facility] Triglyceride [Mass/Vol] 185 mg/dL <199 [facility] Comment on above: The drugs N-Acetylcy steine and Metamizole may falsely depress this assay.Serum Triglycerides Reference Interval Normal <150 mg/dL Borderline high 150 - 199 mg/dL High 200 - 499 mg/dL Very High > or = 500 mg/dL WBC (Bld) [#/Vol] 8.4 10*3/uL 4.4-11.0 [facility] Blood erythrocytes count (nu mber/volume)Ordered By: Dr. Perkins on 08-12-2022 RBC (Bld) [#/Vol] 4.35 10*6/uL 4.2-5.4 [facility] Blood hemoglobin measurement (mass/volume)Ordered By: Dr. Perkins on 08-12-2022 Hemoglobin (Bld) [Mass/Vol] 12.7 g/dL 12.0-15.0 [facility] Blood platelet mean volumeOr dered By: Dr. Perkins on 08-12-2022 Platelet mean volume (Bld) [Entitic vol] 11.1 fL 6.2-12.0 [facility] Determination of erythrocyte mean corpuscular volume (MCV)Ordered By: Dr. Perkins on 08-12-2022 MCV (RBC) [Entitic vol] 91.0 fL 81-99 [facility] Hematocrit Auto (Bld) [Volum e fraction]Ordered By: Dr. Perkins on 08-12-2022 Hematocrit (Bld) [Volume fraction] 39.6 % 37-47 [facility] Laboratory - Chemistry and C hemistry - challengeOrdered By: Dr. Perkins on 08-12-2022 ALP [Catalytic activity/Vol] 64 U/L 45-117 [facility] ALT [Catalytic activity/Vol] 25 U/L 13-56 [facility] CO2 [Moles/Vol] 28.0 mmol/L 21.0-32.0 [facility] Globulin (S) [Mass/Vol] 4.0 g/dL 2.2-4.2 [facility] Urea nitrogen/Creatinine [Mass ratio] 13.3 mg/mg 10-20 [facility] Laboratory - Hematology and Cell countsOrdered By: Dr. Perkins on 08-12-2022 Erythrocyte distribution width (RBC) [Entitic vol] 44.3 fL 35.1-43.9 [facility] Erythrocyte distribution width (RBC) [Ratio] 13.2 % 11.6-14.6 [facility] MCH (RBC) [Entitic mass] 29.2 pg 27.0-32.0 [facility] MCHC Auto (RBC) [Mass/Vol]Or dered By: Dr. Perkins on 08-12-2022 MCHC (RBC) [Mass/Vol] 32.1 g/dL 32-36 [facility] No Panel InformationOrdered By: Dr. Perkins on 08-12-2022 Estimated GFR (MDRD) Amer 79 mL/min >60 [facility] Comment on above: GFR Calc Estimated GFR (MDRD) Non-Af Amer 65 mL/min >60 [facility] Comment on above: Non- GFR Calc Platelets bldOrdered By: Dr. Perkins on 08-12-2022 Platelets (Bld) [#/Vol] 312 10*3/uL 150-450 [facility] Serum or plasma albumin john urement (mass/volume)Ordered By: Dr. Perkins on 08-12-2022 Albumin [Mass/Vol] 3.6 g/dL 3.2-5.0 [facility] Serum or plasma albumin/glob ulin mass ratioOrdered By: Dr. Perkins on 08-12-2022 Albumin/Globulin [Mass ratio] 0.9 {ratio} 0.9-2.4 [facility] Serum or plasma calcium john urement (mass/volume)Ordered By: Dr. Perkins on 08-12-2022 Calcium [Mass/Vol] 9.5 mg/dL 8.5-10.1 [facility] Serum or plasma cholesterol in HDL measurement (mass/volume)Ordered By: Dr. Perkins on 08-12-2022 Cholesterol in HDL [Mass/Vol] 45 mg/dL >40 [facility] Comment on above: The drugs N-Acetylcy steine and Metamizole may falsely depress this assay. Reference Range HDL <40 mg/dL Low HDL Cholesterol HDL >or= 60 mg/dL High HDL Cholesterol Serum or plasma cholesterol in VLDL measurement (mass/volume)Ordered By: Dr. Perkins on 08-12-2022 Cholesterol in VLDL [Mass/Vol] 37 mg/dL 5-40 [facility] Serum or plasma creatinine m easurement (mass/volume)Ordered By: Dr. Perkins on 08-12-2022 Creatinine [Mass/Vol] 0.90 mg/dL 0.55-1.02 [facility] Comment on above: The validity of the calculated GFR & GFRAA in patients over 70 years has not been determined. Clinical correlation is essential. Serum or plasma low density lipoprotein (LDL) cholesterol measurement (mass/volume)Ordered By: Dr. Perkins on 08-12-2022 Cholesterol in LDL [Mass/Vol] 56 mg/dL 0-130 [facility] Serum or plasma urea nitroge n measurement (mass/volume)Ordered By: Dr. Perkins on 08-12-2022 Urea nitrogen [Mass/Vol] 12 mg/dL 7-18 [facility] Thin prep Papanicolaou smear with manual screeningOrdered By: Dr. Perkins on 08-12-2022 Thin prep Papanicolaou smear with manual screening 21 U/L 15-37 [facility] Thin prep Papanicolaou smear with manual screening 6 5-15 [facility] Basophil percentageOrdered B y: Dr. Caban on 08-11-2022 Creatinine [Mass/Vol] 1.1 mg/dL 0.55-1.02 [facility] Laboratory - Chemistry and C hemistry - challengeOrdered By: Dr. Caban on 08-11-2022 GFR/1.73 sq M.predicted among non-blacks MDRD (S/P/Bld) [Vol rate/Area] 53.0000 mL/min/{1.73_m2} >60 [facility] Laboratory - Chemistry and C hemistry - challengeOrdered By: Dr. Perkins on 07-14-2022 Free T4 [Mass/Vol] 0.93 ng/dL 0.76-1.46 [facility] No Panel InformationOrdered By: Dr. Perkins on 07-14-2022 Free Triiodothyronine (T3) pg/dL 2.4 pg/mL 2.18-3.98 [facility] Thyroid Stimulating Hormone (TSH) 1.90 uIU/mL 0.358-3.74 [facility] Basophil percentageon 2021 Cholesterol [Mass/Vol] 141 mg/dL <200 [facility] Work Phone: Comment on above: <200 mg/dL Desirable 200-240 mg/dL Borderline >240 mg/dL High Risk Triglyceride [Mass/Vol] 219 mg/dL <199 [facility] Work Phone: Comment on above: The drugs N-Acetylcy steine and Metamizole may falsely depress this assay.Serum Triglycerides Reference Interval Normal <150 mg/dL Borderline high 150 - 199 mg/dL High 200 - 499 mg/dL Very High > or = 500 mg/dL Serum or plasma cholesterol in HDL measurement (mass/volume)on 01-11-2022 Cholesterol in HDL [Mass/Vol] 38 mg/dL >40 [facility] Work Phone: Comment on above: The drugs N-Acetylcy steine and Metamizole may falsely depress this assay. Reference Range HDL <40 mg/dL Low HDL Cholesterol HDL >or= 60 mg/dL High HDL Cholesterol Serum or plasma cholesterol in VLDL measurement (mass/volume)on 01-11-2022 Cholesterol in VLDL [Mass/Vol] 44 mg/dL 5-40 [facility] Work Phone: Serum or plasma low density lipoprotein (LDL) cholesterol measurement (mass/volume)on 01-11-2022 Cholesterol in LDL [Mass/Vol] 59 mg/dL 0-130 [facility] Work Phone: Whole blood hemoglobin A1c/t otal hemoglobin ratio (mass fraction)on 01-11-2022 HbA1c (Bld) [Mass fraction] 5.7 % 3.8-5.6 [facility] Work Phone: Comment on above: Normal < 5.7 % Predi abetic 5.7 - 6.4 % Diabetic >or= 6.5 % Please note range changes. Absolute lymphocyte counton 01-10-2022 Lymphocytes Auto (Unsp spec) [#/Vol] 3.88 10*3/uL 0.83-4.51 [facility] Work Phone: Basophil percentageon 2021 Basophils/100 WBC (Bld) 0.3 % 0-1 [facility] Work Phone: Chloride [Moles/Vol] 106 mmol/L 98-107 [facility] Work [facility]: Eosinophils/100 WBC (Bld) 1.8 % 0-5 [facility] Work Phone: Glucose [Mass/Vol] 85 mg/dL 74-106 [facility] Work Phone: Neutrophils (Bld) [#/Vol] 5.3 10*3/uL 2.0-7.7 [facility] Work Phone: Neutrophils/100 WBC (Bld) 51.3 % 47-70 [facility] Work Phone: Potassium [Moles/Vol] 4.2 mmol/L 3.5-5.1 [facility] Work Phone: Comment on above: Moderate Hemolysis, Result may be falsely increased. Sodium [Moles/Vol] 142 mmol/L 136-145 [facility] Work Phone: WBC (Bld) [#/Vol] 10.4 10*3/uL 4.4-11.0 [facility] Work Phone: Blood erythrocytes count (nu mber/volume)on 01-10-2022 RBC (Bld) [#/Vol] 4.41 10*6/uL 4.2-5.4 [facility] Work Phone: Blood hemoglobin measurement (mass/volume)on 01-10-2022 Hemoglobin (Bld) [Mass/Vol] 13.4 g/dL 12.0-15.0 [facility] Work Phone: Blood lymphocytes/100 leukoc yteson 01-10-2022 Lymphocytes/100 WBC (Bld) 37.3 % 19-41 [facility] Work Phone: Blood monocytes/100 leukocyt eson 01-10-2022 Monocytes/100 WBC (Bld) 8.9 % 0-10 [facility] Work Phone: Blood platelet mean volumeon 01-10-2022 Platelet mean volume (Bld) [Entitic vol] 10.9 fL 6.2-12.0 [facility] Work Phone: Determination of erythrocyte mean corpuscular volume (MCV)on 01-10-2022 MCV (RBC) [Entitic vol] 91.4 fL 81-99 [facility] Work Phone: Hematocrit Auto (Bld) [Volum e fraction]on 01-10-2022 Hematocrit (Bld) [Volume fraction] 40.3 % 37-47 [facility] Work Phone: INR in Blood by Coagulation assayon 01-10-2022 INR Coag (Bld) [Relative time] 1.0 {INR} [facility] Work Phone: Laboratory - Chemistry and C hemistry - challengeon 01-10-2022 CO2 [Moles/Vol] 30.0 mmol/L 21.0-32.0 [facility] Work Phone: Urea nitrogen/Creatinine [Mass ratio] 14.7 mg/mg 10-20 [facility] Work Phone: Laboratory - Coagulationon 0 01-10-2022 aPTT Coag (Bld) [Time] 29.5 s 24.1-36.2 [facility] Work Phone: PT Coag (PPP) [Time] 13.1 s 11.7-14.9 [facility] Work Phone: Laboratory - Hematology and Cell countson 01-10-2022 Erythrocyte distribution width (RBC) [Entitic vol] 42.8 fL 35.1-43.9 [facility] Work Phone: [phone] Erythrocyte distribution width (RBC) [Ratio] 12.8 % 11.6-14.6 [facility] Work Phone: Immature granulocytes/100 WBC (Bld) 0.400 % 0.0-0.9 [facility] Work Phone: Comment on above: IG% - Immature Granu locytes (promyelocytes, myelocytes and metamyelocytes) > 1% indicates that a LEFT SHIFT is Present. MCH (RBC) [Entitic mass] 30.4 pg 27.0-32.0 [facility] Work Phone: Nucleated RBC/100 WBC (Bld) [Ratio] 0 % 0-5 [facility] Work Phone: MCHC Auto (RBC) [Mass/Vol]on 01-10-2022 MCHC (RBC) [Mass/Vol] 33.3 g/dL 32-36 [facility] Work Phone: No Panel Informationon 01-10 Estimated Creatinine Clearance Calc 45.58 ml/min [facility] Work Phone: Estimated GFR (MDRD) Amer 75 mL/min >60 [facility] Work Phone: Comment on above: GFR Calc Estimated GFR (MDRD) Non-Af Amer 62 mL/min >60 [facility] Work Phone: Comment on above: Non- GFR Calc Troponin I High Sensitivity 6 pg/mL 3.0-54.0 [facility] Work Phone: Comment on above: Please Note: New Kathe t Units and Gender Specific Reference Ranges. For more information see Policy Stat Procedure [place] High Sensitivity Troponin (TNIH) and attachments. Platelets bldon 01-10-2022 Platelets (Bld) [#/Vol] 324 10*3/uL 150-450 [facility] Work Phone: Serum or plasma calcium john urement (mass/volume)on 01-10-2022 Calcium [Mass/Vol] 9.8 mg/dL 8.5-10.1 [facility] Work Phone: Serum or plasma creatinine m easurement (mass/volume)on 01-10-2022 Creatinine [Mass/Vol] 0.95 mg/dL 0.55-1.02 [facility] Work Phone: Comment on above: The validity of the calculated GFR & GFRAA in patients over 70 years has not been determined. Clinical correlation is essential. Serum or plasma urea nitroge n measurement (mass/volume)on 01-10-2022 Urea nitrogen [Mass/Vol] 14 mg/dL 7-18 [facility] Work Phone: Thin prep Papanicolaou smear with manual screeningon 01-10-2022 Thin prep Papanicolaou smear with manual screening 6 5-15 [facility] Work Phone: Office Visiton 02-26-2017 Documentation of current medications (procedure) Done Invalid Interpretation Code [facility] Work Phone: Fall risk assessment No Invalid Interpretation Code [facility] Work Phone: Office Visiton 01-10-2016 Dietary management education, guidance, and counseling (procedure) yes Invalid Interpretation Code [employer] Work Phone: [phone] Office Visiton 10-12-2014 General cardiovascular disease 10Y risk [#] [place] 27 % Invalid Interpretation Code [employer] Work Phone: [phone] Tobacco use [facility] Never smoker Invalid Interpretation Code [employer] Work Phone: [phone] Lab Report: Catecholamines, 24 URon 10-11-2014 dopamine, urine, 24 hour 267 ug/24h Invalid Interpretation Code 0-510 [employer] Work Phone: [phone] DOPAMINE,UR 334 ug/L Invalid Interpretation Code Undefined [employer] Work Phone: [phone] EPINEPHRINE, UR 3 ug/L Invalid Interpretation Code Undefined [employer] Work Phone: [phone] epinephrine, urine, 24 hour 2 ug/24h Invalid Interpretation Code 0-20 [employer] Work Phone: [phone] NOREPINEPH,UR 109 ug/L Invalid Interpretation Code Undefined [employer] Work Phone: [phone] norepinephrine, urine 87 ug/24h Invalid Interpretation Code 0-135 [employer] Work Phone: [phone] Lab Report: VMA, 24 HR URon 10-11-2014 vanillylmandelic acid, urine, 24 hour 3.3 mg/24h Invalid Interpretation Code 0.0-7.5 [employer] Phone: [phone] vanillylmandelate, urine 4.1 mg/L Invalid Interpretation Code Undefined [employer] Work Phone: [phone] Lab Report: CBC W/Diff, Auto matedon 09-07-2014 Absolute Neut 5.9 X10 3/UL Invalid Interpretation Code 2.0-7.7 [employer] Work Phone: [phone] Basophils/100 WBC Auto (Bld) 0.3 % Invalid Interpretation Code 0-1 [employer] Work Phone: [phone] Eosinophils/100 leukocytes 1.5 % Invalid Interpretation Code 0-5 [employer] Work Phone: [phone] Erythrocyte distribution width Auto Ratio (RBC) 14.8 % High 11.6-14.6 [facility] [employer] Work Phone: [phone] Erythrocytes (RBC) 4.37 10*6/uL Invalid Interpretation Code 4.2-5.4 [facility] Work Phone: Hematocrit (HCT) 40.0 % Invalid Interpretation Code 37-47 [facility] Work Phone: [phone] Hemoglobin mass conc (Bld) 12.7 g/dL Invalid Interpretation Code 12.0-15.0 [facility] Work Phone: [phone] Immature granulocytes/100 WBC (Bld) 0.200 % Invalid Interpretation Code 0.0-0.9 [facility] Work Phone: [phone] Lymphocytes 2.68 X10 3/UL Invalid Interpretation Code 0.83-4.51 [facility] Work Phone: [phone] Lymphocytes/100 leukocytes 27.9 % Invalid Interpretation Code 19-41 [facility] Work Phone: [phone] MCH 29.1 pg Invalid Interpretation Code 27.0-32.0 [facility] Work Phone: [phone] MCHC mass conc (RBC) 31.8 G/GL Low 32-36 [facility] [employer] Work Phone: [phone] MCV 91.5 fL Invalid Interpretation Code 81-99 [facility] Work Phone: [phone] Monocytes/100 leukocytes 8.7 % Invalid Interpretation Code 0-10 [facility] Work Phone: [phone] Neutrophils/100 WBC Auto (Bld) 61.4 % Invalid Interpretation Code 47-70 [facility] Work Phone: [phone] Platelets 364 10*3/mm3 Invalid Interpretation Code 150-450 [facility] Work Phone: [phone] PMV by Jasmin 10.5 fL Invalid Interpretation Code 6.2-12.0 [facility] Work Phone: RDW SD 49.9 fL High 35.1-43.9 [facility] Work Phone: WBC (Leukocytes) 9.6 10*3/uL Invalid Interpretation Code 4.4-11.0 [facility] [employer] Work Phone: [phone] Office Visit: [facility] 07-05-19 15 Tobacco smoking status NHIS Never Invalid Interpretation Code [facility] [employer] Work Phone: [phone] Lab Report: Lipid Profileon 06-08-2014 Cholesterol 258 mg/dL Critically high 200 [facility] Work Phone: [phone] HDL Cholesterol 31 mg/dL Critically low [facility] Work Phone: [phone] LDL Cholesterol 180 mg/dL Critically high 0-[address] [facility] Work Phone: [phone] Triglyceride 236 mg/dL Critically high 0-199 [facility] Work Phone: [phone] very low density lipoproteins 47 mg/dL Critically high 5-40 [facility] Work Phone: [phone] Lab Report: Liver Profileon 06-08-2014 Alanine aminotransferase (ALT) 24 U/L Invalid Interpretation Code 12-78 [facility] Work Phone: [phone] Albumin 3.8 g/dL Invalid Interpretation Code 3.4-5.0 [employer] Work Phone: [phone] Alkaline phosphatase (ALP) 55 U/L Invalid Interpretation Code 50-136 [facility] Work Phone: [phone] Aspartate aminotransferase (AST) 24 U/L Invalid Interpretation Code 15-37 [facility] Work Phone: [phone] Bilirubin (direct) mg/dL Invalid Interpretation Code 0.00-0.30 [facility] Work Phone: [phone] Bilirubin (total) 0.30 mg/dL Invalid Interpretation Code 0.00-4.00 [employer] Work Phone: [phone] Globulin 3.4 g/dL Invalid Interpretation Code 2.7-4.2 [facility] Work Phone: [phone] Protein 7.2 g/dL Invalid Interpretation Code 6.4-8.2 [facility] Work Phone: [phone] Lab Report: Basic Metabolic Profile (BMP)on 06-07-2014 Anion gap 6 mmol/L Invalid Interpretation Code 5-15 [facility] Work Phone: [phone] BUN/Creatinine Ratio 14.0 RATIO Invalid Interpretation Code 10-20 [facility] Work Phone: [phone] Calcium 8.9 mg/dL Invalid Interpretation Code 8.5-10.1 [employer] Work Phone: [phone] Chloride 107 mmol/L Invalid Interpretation Code 98-107 [employer] Work Phone: [phone] CO2 27.0 mmol/L Invalid Interpretation Code 21.0-32.0 [employer] Work Phone: [phone] Creatinine 1.0 mg/dL Invalid Interpretation Code 0.6-1.0 [employer] Work Phone: [phone] eGFR (non-black) 73 mL/min/{1.73_m2} Invalid Interpretation Code >60 [employer] Work Phone: [phone] eGFR (non-black) 60 mL/min/{1.73_m2} Invalid Interpretation Code >60 [employer] Work Phone: [phone] Glucose mass conc 120 mg/dL Critically high 70-110 [facility] Work Phone: [phone] Potassium molar conc 3.9 mmol/L Invalid Interpretation Code 3.5-5.1 [employer] Work Phone: [phone] Sodium 140 mmol/L Invalid Interpretation Code 136-145 [employer] Work Phone: [phone] Urea nitrogen 14 mg/dL Invalid Interpretation Code 7-18 [employer] Work Phone: [phone] Office Visit: [facility] 06-06-19 15 cardiac risk group B Invalid Interpretation Code [employer] Work Phone: [phone] Replaced Document: Jenna Parraon 06-06-2014 EKG QRS axis 46 deg Invalid Interpretation Code [employer] Work Phone: [phone] Interpretation Sinus Rhythm -Left a trial enlargement. - Negative T-waves - Lateral ischemia. ABNORMAL Invalid Interpretation Code [employer] Work Phone: [phone] [place] 51 deg Invalid Interpretation Code [employer] Work Phone: [phone] SD Interval 166 ms Invalid Interpretation Code [facility] Work Phone: [phone] Pulse (Heart Rate) 75 /min Invalid Interpretation Code [facility] Work Phone: [phone] QRS Duration 88 ms Invalid Interpretation Code [facility] Work Phone: [phone] QT Interval new path ms Invalid Interpretation Code [facility] Work Phone: [phone] T [place] 117 deg Invalid Interpretation Code [facility] Work Phone: [phone] Clinical Lists Update: Pre12-29-2011 Albumin/Globulin Ratio 1.0 {ratio} Invalid Interpretation Code [facility] Work Phone: [phone] Globulin 3.5 g/dL Invalid Interpretation Code [facility] Work Phone: [phone] Clinical Lists Update: Pre12-19-2011 basophils as percent of blood leukocytes, manual count 0.4 % Invalid Interpretation Code [facility] Work Phone: [phone] eosinophils as percent of blood leukocytes, manual count 2.4 % Invalid Interpretation Code [facility] Work Phone: [phone] neutrophils, band form as percent of blood leukocytes, manual count 61.9 % Invalid Interpretation Code [facility] Work Phone: [phone] Vital Signs Date Time Vital Sign Value Performing Clinician Facility 11-14-2024 12:04-0400 Body height 160.[address] Stefani Ball MD Work Phone: [facility] 11-14-2024 12:04-0400 Body mass index (BMI) [Ratio] 29.4 kg/m2 Dr. Stefani Ball MD Work Phone: [facility] 11-14-2024 12:04-0400 Body temperature 98.2 [degF] Dr. Stefani Ball MD Work Phone: [facility] 11-14-2024 12:04-0400 Body weight 75.[address] Stefani Ball MD Work Phone: [facility] 11-14-2024 12:04-0400 Diastolic blood pressure 60 mm[Hg] Dr. Stefani Ball MD Work Phone: [facility] 11-14-2024 12:04-0400 Heart rate 69 /min Dr. Stefani Ball MD Work Phone: [facility] 11-14-2024 12:04-0400 Respiratory rate 17 /min Dr. Stefani Ball MD Work Phone: [facility] 11-14-2024 12:04-0400 Systolic blood pressure 124 mm[Hg] Dr. Stefani Ball MD Work Phone: 2(140)345-311574 [address] 10-27-2024 10:39-0400 Body height 160.[address] Stefani Ball MD Work Phone: 3(116)290-062974 [address] 10-27-2024 10:39-0400 Body mass index (BMI) [Ratio] 29.2 kg/m2 Dr. Stefani Ball MD Work Phone: 1(461)705-466582 [place] [address] 10-27-2024 10:39-0400 Body temperature 98 [degF] Dr. Stefani Ball MD Work Phone: 0(703)232-588482 [place] [address] 10-27-2024 10:39-0400 Body weight 74.[address] Stefani Ball MD Work Phone: 4(241)829-974474 [address] 10-27-2024 10:39-0400 Diastolic blood pressure 75 mm[Hg] Dr. Stefani Ball MD Work Phone: 2(569)829-075931 [place] [address] 10-27-2024 10:39-0400 Heart rate 72 /min Dr. Stefani Ball MD Work Phone: 5(328)270-235431 [place] [address] 10-27-2024 10:39-0400 Respiratory rate 15 /min Dr. Stefani Ball MD Work Phone: 3(477)963-677831 [place] [address] 10-27-2024 10:39-0400 SaO2% (BldA) [Mass fraction] 98 % Dr. Stefani Ball MD Work Phone: 9(803)919-157431 [place] [address] 10-27-2024 10:39-0400 Systolic blood pressure 146 mm[Hg] Dr. Stefani Ball MD Work Phone: 9(657)637-848731 [place] [address] 10-13-2024 10:27-0400 Body temperature 97.8 [degF] Dr. Stefani Ball MD Work Phone: [facility] 10-13-2024 10:27-0400 Body weight 74.[address] Stefani Ball MD Work Phone: [facility] 10-13-2024 10:27-0400 Diastolic blood pressure 73 mm[Hg] Dr. Stefani Ball MD Work Phone: 0(184)453-345582 [place] [address] 10-13-2024 10:27-0400 Heart rate 83 /min Dr. Stefani Ball MD Work Phone: 5(636)313-615531 [place] [address] 10-13-2024 10:27-0400 Respiratory rate 17 /min Dr. Stefani Ball MD Work Phone: 3(530)300-282682 [place] [address] 10-13-2024 10:27-0400 Systolic blood pressure 144 mm[Hg] Dr. Stefani Ball MD Work Phone: 4(575)133-256482 [place] [address] 10-04-2024 07:18-0400 Body mass index (BMI) [Ratio] 29.2 kg/m2 Dr. Stefani Ball MD Work Phone: 2(265)967-167282 [place] [address] 10-04-2024 07:18-0400 Body weight 74.[address] Stefani Ball MD Work Phone: 7(406)654-079982 [place] [address] 10-04-2024 07:18-0400 Diastolic blood pressure 68 mm[Hg] Dr. Stefani Ball MD Work Phone: 0(519)659-888631 [place] [address] 10-04-2024 07:18-0400 Heart rate 70 /min Dr. Stefani Ball MD Work Phone: 2(480)195-758231 [place] [address] 10-04-2024 07:18-0400 Respiratory rate 18 /min Dr. Stefani Ball MD Work Phone: 3(618)572-406782 [place] [address] 10-04-2024 07:18-0400 SaO2% (BldA) [Mass fraction] 100 % Dr. Stefani Ball MD Work Phone: 6(784)030-823874 [address] 10-04-2024 07:18-0400 Systolic blood pressure 115 mm[Hg] Dr. Stefani Ball MD Work Phone: [facility] 09-09-2024 12:09-0400 Body temperature 97.8 [degF] Dr. Stefani Ball MD Work Phone: 5(590)815-950082 [place] [address] 09-09-2024 12:09-0400 Diastolic blood pressure 57 mm[Hg] Dr. Stefani Ball MD Work Phone: 9(801)691-919082 [place] [address] 09-09-2024 12:09-0400 Heart rate 73 /min Dr. Stefani Ball MD Work Phone: 0(172)778-447382 [place] [address] 09-09-2024 12:09-0400 Respiratory rate 16 /min Dr. Stefani Ball MD Work Phone: 1(250)377-934382 [place] [address] 09-09-2024 12:09-0400 SaO2% (BldA) [Mass fraction] 97 % Dr. Stefani Ball MD Work Phone: 2(975)934-615482 [place] [address] 09-09-2024 12:09-0400 Systolic blood pressure 150 mm[Hg] Dr. Stefani Ball MD Work Phone: 9(199)591-714182 [place] [address] 09-09-2024 09:55-0400 Inhaled oxygen flow rate 2 L/min Dr. Stefani Ball MD Work Phone: 7(571)485-545231 [place] [address] 09-09-2024 06:40-0400 Body height 160.[address] Stefani Ball MD Work Phone: 3(459)193-939682 [place] [address] 09-09-2024 06:40-0400 Body mass index (BMI) [Ratio] 30 kg/m2 Dr. Stefani Ball MD Work Phone: 5(290)770-972831 [place] [address] 09-09-2024 06:40-0400 Body weight [address] Stefani Ball MD Work Phone: 6(739)664-939282 [place] [address] 09-06-2024 11:54-0400 Body temperature 97.8 [degF] Dr. Stefani Ball MD Work Phone: 6(451)851-199782 [place] [address] 09-06-2024 11:54-0400 Body weight 76.[address] Stefani Ball MD Work Phone: [facility] 09-06-2024 11:54-0400 Diastolic blood pressure 64 mm[Hg] Dr. Stefani Ball MD Work Phone: [facility] 09-06-2024 11:54-0400 Heart rate 80 /min Dr. Stefani Ball MD Work Phone: 1(782)634-356231 [place] [address] 09-06-2024 11:54-0400 Respiratory rate 17 /min Dr. Stefani Ball MD Work Phone: 8(915)707-841931 [place] [address] 09-06-2024 11:54-0400 Systolic blood pressure 135 mm[Hg] Dr. Stefani Ball MD Work Phone: 4(009)847-469882 [place] [address] 08-12-2024 08:28-0400 Body height 160.[address] Stefani Ball MD Work Phone: 0(498)035-751682 [place] [address] 08-12-2024 08:28-0400 Body mass index (BMI) [Ratio] 29.9 kg/m2 Dr. Stefani Ball MD Work Phone: 6(760)349-707874 [address] 08-12-2024 08:28-0400 Body temperature 97.3 [degF] Dr. Stefani Ball MD Work Phone: [facility] 08-12-2024 08:28-0400 Body weight 76.[address] Stefani Ball MD Work Phone: 6(818)798-785931 [place] [address] 08-12-2024 08:28-0400 Diastolic blood pressure 72 mm[Hg] Dr. Stefani Ball MD Work Phone: 1(769)863-640374 [address] 08-12-2024 08:28-0400 Heart rate 71 /min Dr. Stefani Ball MD Work Phone: 6(531)027-140931 [place] [address] 08-12-2024 08:28-0400 Respiratory rate 18 /min Dr. Stefani Ball MD Work Phone: 4(036)905-346131 [place] [address] 08-12-2024 08:28-0400 SaO2% (BldA) [Mass fraction] 96 % Dr. Stefani Ball MD Work Phone: [facility] 08-12-2024 08:28-0400 Systolic blood pressure 130 mm[Hg] Dr. Stefani Ball MD Work Phone: [facility] 08-04-2024 10:58-0400 Body mass index (BMI) [Ratio] 29.5 kg/m2 Dr. Stefani Ball MD Work Phone: [facility] 08-04-2024 10:58-0400 Body temperature 98.6 [degF] Dr. Stefani Ball MD Work Phone: 0(081)063-385982 [place] [address] 08-04-2024 10:58-0400 Body weight 75.[address] Stefani Ball MD Work Phone: 7(641)289-152074 [address] 08-04-2024 10:58-0400 Diastolic blood pressure 64 mm[Hg] Dr. Stefani Ball MD Work Phone: 4(622)502-331931 [place] [address] 08-04-2024 10:58-0400 Heart rate 60 /min Dr. Stefani Ball MD Work Phone: 9(571)713-517374 [address] 08-04-2024 10:58-0400 Respiratory rate 15 /min Dr. Stefani Ball MD Work Phone: [facility] 08-04-2024 10:58-0400 SaO2% (BldA) [Mass fraction] 99 % Dr. Stefani Ball MD Work Phone: [facility] 08-04-2024 10:58-0400 Systolic blood pressure 122 mm[Hg] Dr. Stefani Ball MD Work Phone: 3(117)377-582874 [address] 07-04-2024 11:24-0400 Body mass index (BMI) [Ratio] 30.5 kg/m2 Dr. Stefani Ball MD Work Phone: 8(854)971-683231 [place] [address] 07-04-2024 11:24-0400 Body temperature 98.4 [degF] Dr. Stefani Ball MD Work Phone: 2(789)220-690431 [place] [address] 07-04-2024 11:24-0400 Body weight 78.[address] Stefani Ball MD Work Phone: [facility] 07-04-2024 11:24-0400 Diastolic blood pressure 70 mm[Hg] Dr. Stefani Ball MD Work Phone: [facility] 07-04-2024 11:24-0400 Heart rate 64 /min Dr. Stefani Ball MD Work Phone: [facility] 07-04-2024 11:24-0400 Respiratory rate 17 /min Dr. Stefani Ball MD Work Phone: 7(332)078-742531 [place] [address] 07-04-2024 11:24-0400 Systolic blood pressure 130 mm[Hg] Dr. Stefani Ball MD Work Phone: [facility] 06-20-2024 08:56-0400 Body height 160.[address] Stefani Ball MD Work Phone: [facility] 06-20-2024 08:56-0400 Body mass index (BMI) [Ratio] 30.1 kg/m2 Dr. Stefani Ball MD Work Phone: [facility] 06-20-2024 08:56-0400 Body temperature 97.2 [degF] Dr. Stefani Ball MD Work Phone: [facility] 06-20-2024 08:56-0400 Body weight 77.[address] Stefani Ball MD Work Phone: [facility] 06-20-2024 08:56-0400 Diastolic blood pressure 68 mm[Hg] Dr. Stefani Ball MD Work Phone: [facility] 06-20-2024 08:56-0400 Heart rate 64 /min Dr. Stefani Ball MD Work Phone: [facility] 06-20-2024 08:56-0400 Respiratory rate 18 /min Dr. Stefani Ball MD Work Phone: [facility] 06-20-2024 08:56-0400 SaO2% (BldA) [Mass fraction] 99 % Dr. Stefani Ball MD Work Phone: [facility] 06-20-2024 08:56-0400 Systolic blood pressure 149 mm[Hg] Dr. Stefani Ball MD Work Phone: [facility] 06-02-2024 08:57-0500 Body mass index (BMI) [Ratio] 30.4 kg/m2 Dr. Stefani Ball MD Work Phone: [facility] 06-02-2024 08:57-0500 Body temperature 97.8 [degF] Dr. Stefani Ball MD Work Phone: [facility] 06-02-2024 08:57-0500 Body weight 78.[address] Stefani Ball MD Work Phone: 5(344)019-410031 [place] [address] 06-02-2024 08:57-0500 Diastolic blood pressure 70 mm[Hg] Dr. Stefani Ball MD Work Phone: [facility] 06-02-2024 08:57-0500 Heart rate 75 /min Dr. Stefani Ball MD Work Phone: [facility] 06-02-2024 08:57-0500 Respiratory rate 17 /min Dr. Stefani Ball MD Work Phone: [facility] 06-02-2024 08:57-0500 Systolic blood pressure 128 mm[Hg] Dr. Stefani Ball MD Work Phone: [facility] 05-23-2024 10:27-0500 Body mass index (BMI) [Ratio] 30.4 kg/m2 Dr. Stefani Ball MD Work Phone: [facility] 05-23-2024 10:27-0500 Body temperature 98.4 [degF] Dr. Stefani Ball MD Work Phone: [facility] 05-23-2024 10:27-0500 Body weight 78.[address] Stefani Ball MD Work Phone: [facility] 05-23-2024 10:27-0500 Diastolic blood pressure 72 mm[Hg] Dr. Stefani Ball MD Work Phone: 9(253)664-928531 [place] [address] 05-23-2024 10:27-0500 Heart rate 77 /min Dr. Stefani Ball MD Work Phone: 9(182)495-812982 [place] [address] 05-23-2024 10:27-0500 Respiratory rate 15 /min Dr. Stefani Ball MD Work Phone: 0(384)716-347582 [place] [address] 05-23-2024 10:27-0500 SaO2% (BldA) [Mass fraction] 98 % Dr. Stefani Ball MD Work Phone: 2(523)357-660882 [place] [address] 05-23-2024 10:27-0500 Systolic blood pressure 118 mm[Hg] Dr. Stefani Ball MD Work Phone: 1(326)197-064782 [place] [address] 05-20-2024 08:08-0500 Body temperature 97.2 [degF] Dr. Stefani Ball MD Work Phone: 3(487)456-891982 [place] [address] 05-20-2024 08:08-0500 Diastolic blood pressure 52 mm[Hg] Dr. Stefani Ball MD Work Phone: 6(248)981-005982 [place] [address] 05-20-2024 08:08-0500 Heart rate 77 /min Dr. Stefani Ball MD Work Phone: 8(809)987-956582 [place] [address] 05-20-2024 08:08-0500 Respiratory rate 18 /min Dr. Stefani Ball MD Work Phone: 7(070)043-329782 [place] [address] 05-20-2024 08:08-0500 SaO2% (BldA) [Mass fraction] 100 % Dr. Stefani Ball MD Work Phone: 9(695)138-698082 [place] [address] 05-20-2024 08:08-0500 Systolic blood pressure 96 mm[Hg] Dr. Stefani Ball MD Work Phone: 7(048)827-362782 [place] [address] 05-18-2024 14:14-0500 Body temperature 99.3 [degF] Dr. Stefani Ball MD Work Phone: [facility] 05-18-2024 14:14-0500 Diastolic blood pressure 64 mm[Hg] Dr. Stefani Ball MD Work Phone: [facility] 05-18-2024 14:14-0500 Heart rate 75 /min Dr. Stefani Ball MD Work Phone: 8(766)893-785431 [place] [address] 05-18-2024 14:14-0500 Respiratory rate 16 /min Dr. Stefani Ball MD Work Phone: 7(329)171-781031 [place] [address] 05-18-2024 14:14-0500 SaO2% (BldA) [Mass fraction] 97 % Dr. Stefani Ball MD Work Phone: 8(636)905-091674 [address] 05-18-2024 14:14-0500 Systolic blood pressure 127 mm[Hg] Dr. Stefani Ball MD Work Phone: 8(293)407-870282 [place] [address] 05-18-2024 11:52-0500 Body mass index (BMI) [Ratio] 29.7 kg/m2 Dr. Stefani Ball MD Work Phone: 5(458)883-588982 [place] [address] 05-18-2024 11:52-0500 Body weight [address] Stefani Ball MD Work Phone: 5(215)060-087282 [place] [address] 05-02-2024 08:25-0500 Body mass index (BMI) [Ratio] 30.9 kg/m2 Dr. Stefani Ball MD Work Phone: 2(246)113-955231 [place] [address] 05-02-2024 08:25-0500 Body temperature 97.2 [degF] Dr. Stefani Ball MD Work Phone: 1(733)378-939974 [address] 05-02-2024 08:25-0500 Body weight 79.[address] Stefani Ball MD Work Phone: 3(622)911-668882 [place] [address] 05-02-2024 08:25-0500 Diastolic blood pressure 73 mm[Hg] Dr. Stefani Ball MD Work Phone: 8(561)518-160574 [address] 05-02-2024 08:25-0500 Heart rate 81 /min Dr. Stefani Ball MD Work Phone: [facility] 05-02-2024 08:25-0500 Respiratory rate 18 /min Dr. Stefani Ball MD Work Phone: [facility] 05-02-2024 08:25-0500 SaO2% (BldA) [Mass fraction] 92 % Dr. Stefani Ball MD Work Phone: [facility] 05-02-2024 08:25-0500 Systolic blood pressure 127 mm[Hg] Dr. Stefani Ball MD Work Phone: 9(280)880-310131 [place] [address] 04-28-2024 10:09-0500 Body mass index (BMI) [Ratio] 31.3 kg/m2 Dr. Stefani Ball MD Work Phone: 2(004)806-368874 [address] 04-28-2024 10:09-0500 Body temperature 97.8 [degF] Dr. Stefani Ball MD Work Phone: 7(489)227-027231 [place] [address] 04-28-2024 10:09-0500 Body weight 80.[address] Stefani Ball MD Work Phone: 1(128)268-034474 [address] 04-28-2024 10:09-0500 Diastolic blood pressure 80 mm[Hg] Dr. Stefani Ball MD Work Phone: 4(231)400-143674 [address] 04-28-2024 10:09-0500 Heart rate 82 /min Dr. Stefani Ball MD Work Phone: 7(400)381-895131 [place] [address] 04-28-2024 10:09-0500 Respiratory rate 17 /min Dr. Stefani Ball MD Work Phone: [facility] 04-28-2024 10:09-0500 Systolic blood pressure 138 mm[Hg] Dr. Stefani Ball MD Work Phone: 3(040)739-516374 [address] 03-15-2024 13:14-0500 Body mass index (BMI) [Ratio] 31.6 kg/m2 Dr. Stefani Ball MD Work Phone: 0(075)915-878731 [place] [address] 03-15-2024 13:14-0500 Body temperature 98.6 [degF] Dr. Stefani Ball MD Work Phone: [facility] 03-15-2024 13:14-0500 Body weight 81.[address] Stefani Ball MD Work Phone: [facility] 03-15-2024 13:14-0500 Diastolic blood pressure 70 mm[Hg] Dr. Stefani Ball MD Work Phone: 8(696)058-639631 [place] [address] 03-15-2024 13:14-0500 Heart rate 84 /min Dr. Stefani Ball MD Work Phone: 8(959)715-510531 [place] [address] 03-15-2024 13:14-0500 Respiratory rate 17 /min Dr. Stefani Ball MD Work Phone: [facility] 03-15-2024 13:14-0500 SaO2% (BldA) [Mass fraction] 98 % Dr. Stefani Ball MD Work Phone: [facility] 03-15-2024 13:14-0500 Systolic blood pressure 138 mm[Hg] Dr. Stefani Ball MD Work Phone: [facility] 02-25-2024 10:58-0500 Body mass index (BMI) [Ratio] 31.3 kg/m2 Dr. Stefani Ball MD Work Phone: [facility] 02-25-2024 10:58-0500 Body temperature 98.6 [degF] Dr. Stefani Ball MD Work Phone: [facility] 02-25-2024 10:58-0500 Body weight 80.[address] Stef[facility] Ball MD Work Phone: [facility] [facility] 02-25-2024 10:58-0500 Diastolic blood pressure 68 mm[Hg] Dr. Stefani Ball MD Work Phone: [facility] 02-25-2024 10:58-0500 Heart rate 77 /min Dr. Stefani Ball MD Work Phone: [facility] 02-25-2024 10:58-0500 Respiratory rate 16 /min Dr. Stefani Ball MD Work Phone: [facility] 02-25-2024 10:58-0500 SaO2% (BldA) [Mass fraction] 98 % Dr. Stefani Ball MD Work Phone: [facility] 02-25-2024 10:58-0500 Systolic blood pressure 132 mm[Hg] Dr. Stefani Ball MD Work Phone: [facility] 08-06-2023 08:40-0400 Body temperature 97 [degF] Dr. Stefani Ball Work Phone: 7(719)610-712631 [place] [address] 08-06-2023 08:40-0400 Diastolic blood pressure 65 mm[Hg] Dr. Stefani Ball Work Phone: 2(606)768-701531 [place] [address] 08-06-2023 08:40-0400 Heart rate 74 /min Dr. Stefani Ball Work Phone: [facility] 08-06-2023 08:40-0400 Respiratory rate 16 /min Dr. Stefani Ball Work Phone: [facility] 08-06-2023 08:40-0400 SaO2% (BldA) [Mass fraction] 97 % Dr. Stefani Ball Work Phone: [facility] 08-06-2023 08:40-0400 Systolic blood pressure 155 mm[Hg] Dr. Stefani Ball Work Phone: [facility] 08-06-2023 06:44-0400 Body height 160.[address] Stefani Ball Work Phone: [facility] 08-06-2023 06:44-0400 Body mass index (BMI) [Ratio] 30.1 kg/m2 Dr. Stefani Ball Work Phone: [facility] 08-06-2023 06:44-0400 Body weight 77.[address] Stefani Ball Work Phone: [facility] 07-23-2023 10:51-0400 Body mass index (BMI) [Ratio] 30.4 kg/m2 Dr. Stefani Ball Work Phone: [facility] 07-23-2023 10:51-0400 Body temperature 98.2 [degF] Dr. Stefani Ball Work Phone: [facility] 07-23-2023 10:51-0400 Body weight 77.[address] Stefani Ball Work Phone: [facility] 07-23-2023 10:51-0400 Diastolic blood pressure 86 mm[Hg] Dr. Stefani Ball Work Phone: 1(578)992-116831 [place] [address] 07-23-2023 10:51-0400 Heart rate 90 /min Dr. Stefani Ball Work Phone: 6(841)370-340831 [place] [address] 07-23-2023 10:51-0400 Respiratory rate 17 /min Dr. Stefani Ball Work Phone: [facility] 07-23-2023 10:51-0400 Systolic blood pressure 160 mm[Hg] Dr. Stefani Ball Work Phone: [facility] 07-09-2023 13:49-0400 Diastolic blood pressure 73 mm[Hg] Dr. Stefani Ball Work Phone: [facility] 07-09-2023 13:49-0400 Heart rate 91 /min Dr. Stefani Ball Work Phone: [facility] 07-09-2023 13:49-0400 Respiratory rate 17 /min Dr. Stefani Ball Work Phone: [facility] 07-09-2023 13:49-0400 Systolic blood pressure 125 mm[Hg] Dr. Stefani Ball Work Phone: [facility] 06-22-2023 10:17-0400 Body mass index (BMI) [Ratio] 30.1 kg/m2 Dr. Stefani Ball Work Phone: [facility] 06-22-2023 10:17-0400 Body temperature 98.2 [degF] Dr. Stefani Ball Work Phone: [facility] 06-22-2023 10:17-0400 Body weight 77.[address] Stefani Ball Work Phone: [facility] 06-22-2023 10:17-0400 Diastolic blood pressure 70 mm[Hg] Dr. Stefani Ball Work Phone: [facility] 06-22-2023 10:17-0400 Heart rate 105 /min Dr. Stefani Ball Work Phone: [facility] 06-22-2023 10:17-0400 Respiratory rate 17 /min Dr. Stefani Ball Work Phone: [facility] 06-22-2023 10:17-0400 SaO2% (BldA) [Mass fraction] 99 % Dr. Stefani Ball Work Phone: [facility] 06-22-2023 10:17-0400 Systolic blood pressure 124 mm[Hg] Dr. Stefani Ball Work Phone: [facility] 05-21-2023 09:10-0500 Body mass index (BMI) [Ratio] 30 kg/m2 Dr. Stefani Ball Work Phone: [facility] 05-21-2023 09:10-0500 Body temperature 97.8 [degF] Dr. Stefani Ball Work Phone: [facility] 05-21-2023 09:10-0500 Body weight 77.[address] Stefani Ball Work Phone: [facility] 05-21-2023 09:10-0500 Diastolic blood pressure 80 mm[Hg] Dr. Stefani Ball Work Phone: [facility] 05-21-2023 09:10-0500 Respiratory rate 16 /min Dr. Stefani Ball Work Phone: [facility] 05-21-2023 09:10-0500 Systolic blood pressure 140 mm[Hg] Dr. Stefani Ball Work Phone: [facility] 04-20-2023 09:32-0500 Body temperature 98.2 [degF] Dr. Stefani Ball Work Phone: [facility] 04-20-2023 09:32-0500 Body weight 76.[address] Stefani Ball Work Phone: [facility] 04-20-2023 09:32-0500 Diastolic blood pressure 70 mm[Hg] Dr. Stefani Ball Work Phone: [facility] 04-20-2023 09:32-0500 Heart rate 68 /min Dr. Stefani Ball Work Phone: 8(688)495-932174 [address] 04-20-2023 09:32-0500 Respiratory rate 14 /min Dr. Stefani Ball Work Phone: 3(771)601-482031 [place] [address] 04-20-2023 09:32-0500 SaO2% (BldA) [Mass fraction] 98 % Dr. Stefani Ball Work Phone: [facility] 04-20-2023 09:32-0500 Systolic blood pressure 115 mm[Hg] Dr. Stefani Ball Work Phone: [facility] 03-19-2023 08:07-0500 Body temperature 98.2 [degF] Dr. Stefani Ball Work Phone: [facility] 03-19-2023 08:07-0500 Body weight 76.[address] Stefani Ball Work Phone: [facility] 03-19-2023 08:07-0500 Diastolic blood pressure 80 mm[Hg] Dr. Stefani Ball Work Phone: 1(740)691-475431 [place] [address] 03-19-2023 08:07-0500 Heart rate 74 /min Dr. Stefani Ball Work Phone: [facility] 03-19-2023 08:07-0500 Respiratory rate 16 /min Dr. Stefani Ball Work Phone: [facility] 03-19-2023 08:07-0500 Systolic blood pressure 140 mm[Hg] Dr. Stefani Ball Work Phone: [facility] 03-12-2023 14:36-0500 Body height 160.[address] Stefani Ball Work Phone: 2(553)650-356631 [place] [address] 03-12-2023 14:36-0500 Body mass index (BMI) [Ratio] 29.2 kg/m2 Dr. Stefani Ball Work Phone: 3(181)123-725231 [place] [address] 03-12-2023 14:36-0500 Body temperature 98.4 [degF] Dr. Stefani Ball Work Phone: 5(537)504-675731 [place] [address] 03-12-2023 14:36-0500 Body weight 74.[address] Stefani Ball Work Phone: 6(874)274-961331 [place] [address] 03-12-2023 14:36-0500 Diastolic blood pressure 60 mm[Hg] Dr. Stefani Ball Work Phone: 3(477)248-542831 [place] [address] 03-12-2023 14:36-0500 Heart rate 83 /min Dr. Stefani Ball Work Phone: 4(615)774-982531 [place] [address] 03-12-2023 14:36-0500 Respiratory rate 17 /min Dr. Stefani Ball Work Phone: 9(831)929-477131 [place] [address] 03-12-2023 14:36-0500 SaO2% (BldA) [Mass fraction] 99 % Dr. Stefani Ball Work Phone: [facility] 03-12-2023 14:36-0500 Systolic blood pressure 124 mm[Hg] Dr. Stefani Ball Work Phone: 7(058)317-569031 [place] [address] 02-20-2023 03:25-0500 Body temperature 99.2 [degF] Dr. Stefani Ball Work Phone: 8(095)736-632031 [place] [address] 02-20-2023 03:25-0500 Diastolic blood pressure 85 mm[Hg] Dr. Stefani Ball Work Phone: 7(628)733-033531 [place] [address] 02-20-2023 03:25-0500 Heart rate 88 /min Dr. Stefani Ball Work Phone: [facility] 02-20-2023 03:25-0500 Respiratory rate 18 /min Dr. Stefani Ball Work Phone: [facility] 02-20-2023 03:25-0500 SaO2% (BldA) [Mass fraction] 95 % Dr. Stefani Ball Work Phone: [facility] 02-20-2023 03:25-0500 Systolic blood pressure 189 mm[Hg] Dr. Stefani Ball Work Phone: [facility] 02-19-2023 21:28-0500 Body mass index (BMI) [Ratio] 33.2 kg/m2 Dr. Stefani Ball Work Phone: [facility] 02-19-2023 21:28-0500 Body weight [address] Stefani Ball Work Phone: [facility] 02-19-2023 20:23-0500 Body height 160.[address] Stefani Ball Work Phone: [facility] 02-18-2023 13:45-0500 Body temperature 97.7 [degF] DR ROGERIO PHILLIPS MD [facility] 02-18-2023 13:45-0500 Diastolic Blood Pressure Non-Invasive [address] ROGERIO PHILLIPS MD [facility] 02-18-2023 13:45-0500 Heart rate 69 /min DR ROGERIO PHILLIPS MD [facility] 02-18-2023 13:45-0500 Reason For Taking VItal Signs DR ROGERIO PHILLIPS MD [facility] 02-18-2023 13:45-0500 Respiratory rate 20 /min DR ROGERIO PHILLIPS MD [facility] 02-18-2023 13:45-0500 Systolic Blood Pressure Non-Invasive [address] ROGERIO PHILLIPS MD [facility] 02-18-2023 11:21-0500 Body temperature 97.7 [degF] DR ROGERIO PHILLIPS MD [facility] 02-18-2023 11:21-0500 Diastolic Blood Pressure Non-Invasive [address] ROGERIO PHILLIPS MD [facility] 02-18-2023 11:21-0500 Heart rate 50 /min DR ROGERIO PHILLIPS MD [facility] 02-18-2023 11:21-0500 Respiratory rate 20 /min DR ROGERIO PHILLIPS MD [facility] 02-18-2023 11:21-0500 Systolic Blood Pressure Non-Invasive [address] ROGERIO PHILLIPS MD [facility] 02-18-2023 10:53-0500 Body temperature 97.7 [degF] DR ROGERIO PHILLIPS MD [facility] 02-18-2023 10:53-0500 Diastolic Blood Pressure Non-Invasive [address] ROGERIO PHILLIPS MD [facility] 02-18-2023 10:53-0500 Heart rate 84 /min DR ROGERIO PHILLIPS MD [facility] 02-18-2023 10:53-0500 Reason For Taking VItal Signs DR ROGERIO PHILLIPS MD [facility] 02-18-2023 10:53-0500 Respiratory rate 16 /min DR ROGERIO PHILLIPS MD [facility] 02-18-2023 10:53-0500 Systolic Blood Pressure Non-Invasive [address] ROGERIO PHILLIPS MD [facility] 02-18-2023 07:50-0500 Heart rate 77 /min DR ROGERIO PHILLIPS MD [facility] 02-18-2023 07:50-0500 Reason For Taking VItal Signs DR ROGEROI PHILLIPS MD [facility] 02-18-2023 05:15-0500 Heart rate 79 /min DR ROGERIO PHILLIPS MD [facility] 02-17-2023 17:02-0500 Heart rate 85 /min DR ROGERIO PHILLIPS MD [facility] 02-17-2023 16:34-0500 Body height [address] ROGERIO PHILLIPS MD [facility] 02-17-2023 16:34-0500 Body weight 78.[address] ROGERIO PHILLIPS MD [facility] 02-17-2023 16:34-0500 Body weight 30.63 kg/m2 DR ROGERIO PHILLIPS MD [facility] 02-17-2023 14:53-0500 Body temperature 96.98 [degF] DR ROGERIO PHILLIPS MD [facility] 02-17-2023 14:45-0500 Respiratory Rate - Anes 10 br/min DR ROGERIO PHILLIPS MD [facility] 02-17-2023 14:40-0500 Respiratory Rate - Anes 3 br/min DR ROGERIO PHILLIPS MD [facility] 02-17-2023 14:35-0500 Respiratory Rate - Anes 7 br/min DR ROGERIO PHILLIPS MD [facility] 02-17-2023 12:35-0500 Diastolic blood pressure 64 mm[Hg] DR ROGERIO PHILLIPS MD [facility] 02-17-2023 12:35-0500 Systolic blood pressure 162 mm[Hg] DR ROGERIO PHILLIPS MD [facility] 02-17-2023 11:02-0500 Body weight 30.63 kg/m2 DR ROGERIO PHILLIPS MD [facility] 02-17-2023 10:47-0500 Body height [address] ROGERIO PHILLIPS MD [facility] 02-17-2023 10:47-0500 Body temperature 97.88 [degF] DR ROGERIO PHILLIPS MD [facility] 02-17-2023 10:47-0500 Body weight 78.[address] ROGERIO PHILLIPS MD [facility] 02-16-2023 07:58-0500 Body mass index (BMI) [Ratio] 31.3 kg/m2 Dr. Stefani Ball Work Phone: [facility] 02-16-2023 07:58-0500 Body temperature 98 [degF] Dr. tSefani Ball Work Phone: [facility] 02-16-2023 07:58-0500 Body weight 80.[address] Stefani Ball Work Phone: [facility] 02-16-2023 07:58-0500 Diastolic blood pressure 70 mm[Hg] Dr. Stefani Ball Work Phone: [facility] 02-16-2023 07:58-0500 Heart rate 69 /min Dr. Stefani Ball Work Phone: [facility] 02-16-2023 07:58-0500 Respiratory rate 16 /min Dr. Stefani Ball Work Phone: [facility] 02-16-2023 07:58-0500 Systolic blood pressure 130 mm[Hg] Dr. Stefani Ball Work Phone: [facility] 01-29-2023 13:42-[address] ROGERIO PHILLIPS MD [facility] 01-29-2023 13:42-0400 Body height [address] ROGERIO PHILLIPS MD [facility] 01-29-2023 13:42-0400 Body weight 78.[address] ROGERIO PHILLIPS MD [facility] 01-29-2023 13:42-0400 Diastolic Blood Pressure Non-Invasive [address] ROGERIO PHILLIPS MD [facility] 01-29-2023 13:42-0400 Heart rate 73 /min DR ROGERIO PHILLIPS MD [facility] 01-29-2023 13:42-0400 Respiratory rate 20 /min DR ROGERIO PHILLIPS MD [facility] 01-29-2023 13:42-0400 Systolic Blood Pressure Non-Invasive [address] ROGERIO PHILLIPS MD [facility] 01-14-2023 08:41-0400 Body mass index (BMI) [Ratio] 31 kg/m2 Dr. Stefani Ball Work Phone: [facility] 01-14-2023 08:41-0400 Body temperature 98 [degF] Dr. Stefani Ball Work Phone: [facility] 01-14-2023 08:41-0400 Body weight 79.[address] Stefani Ball Work Phone: [facility] 01-14-2023 08:41-0400 Diastolic blood pressure 70 mm[Hg] Dr. Stefani Ball Work Phone: [facility] 01-14-2023 08:41-0400 Heart rate 78 /min Dr. Stefani Ball Work Phone: [facility] 01-14-2023 08:41-0400 Respiratory rate 17 /min Dr. Stefani Ball Work Phone: [facility] 01-14-2023 08:41-0400 SaO2% (BldA) [Mass fraction] 99 % Dr. Stefani Ball Work Phone: [facility] 01-14-2023 08:41-0400 Systolic blood pressure 134 mm[Hg] Dr. Stefani Ball Work Phone: [facility] 12-18-2022 13:32-0400 Body height 160.[address] Stefani Ball Work Phone: 5(330)741-519931 [place] [address] 12-18-2022 13:32-0400 Body mass index (BMI) [Ratio] 30.5 kg/m2 Dr. Stefani Ball Work Phone: [facility] 12-18-2022 13:32-0400 Body temperature 97.4 [degF] Dr. Stefani Ball Work Phone: [facility] 12-18-2022 13:32-0400 Body weight 78.[address] Stefani Ball Work Phone: [facility] 12-18-2022 13:32-0400 Diastolic blood pressure 67 mm[Hg] Dr. Stefani Ball Work Phone: [facility] 12-18-2022 13:32-0400 Heart rate 70 /min Dr. Stefani Ball Work Phone: [facility] 12-18-2022 13:32-0400 Respiratory rate 16 /min Dr. Stefani Ball Work Phone: [facility] 12-18-2022 13:32-0400 Systolic blood pressure 151 mm[Hg] Dr. Stefani Ball Work Phone: [facility] 11-06-2022 12:32-0400 Diastolic blood pressure 82 mm[Hg] Dr. Stefani Ball Work Phone: [facility] 11-06-2022 12:32-0400 Systolic blood pressure 157 mm[Hg] Dr. Stefani Ball Work Phone: [facility] 11-06-2022 11:35-0400 Body height 160.[address] Stefani Ball Work Phone: 1(021)379-896431 [place] [address] 11-06-2022 11:35-0400 Body mass index (BMI) [Ratio] 30.8 kg/m2 Dr. Stefani Ball Work Phone: [facility] 11-06-2022 11:35-0400 Body temperature 99.3 [degF] Dr. Stefani Ball Work Phone: [facility] 11-06-2022 11:35-0400 Body weight 78.[address] Stefani Ball Work Phone: [facility] 11-06-2022 11:35-0400 Heart rate 76 /min Dr. Stefani Ball Work Phone: [facility] 11-06-2022 11:35-0400 Respiratory rate 16 /min Dr. Stefani Ball Work Phone: [facility] 11-06-2022 11:35-0400 SaO2% (BldA) [Mass fraction] 98 % Dr. Stefani Ball Work Phone: [facility] 09-22-2022 10:09-0400 Body height 160.[address] Stefani Ball Work Phone: [facility] 09-22-2022 10:09-0400 Body weight 77.[address] Stefani Ball Work Phone: [facility] 09-19-2022 09:54-0400 Body mass index (BMI) [Ratio] 30.2 kg/m2 Dr. Stefani Ball Work Phone: 5(786)300-424474 [address] 09-03-2022 11:14-0400 Body height 160.[address] Stefani Ball Work Phone: 2(731)837-005482 [place] [address] 09-03-2022 11:14-0400 Body mass index (BMI) [Ratio] 30.2 kg/m2 Dr. Stefani Ball Work Phone: 5(088)937-081974 [address] 09-03-2022 11:14-0400 Body weight 77.[address] Stefani Ball Work Phone: 2(755)717-716382 [place] [address] 09-03-2022 11:14-0400 Diastolic blood pressure 71 mm[Hg] Dr. Stefani Ball Work Phone: 4(906)753-961082 [place] [address] 09-03-2022 11:14-0400 Heart rate 70 /min Dr. Stefani Ball Work Phone: 9(265)145-272082 [place] [address] 09-03-2022 11:14-0400 Respiratory rate 16 /min Dr. Stefani Ball Work Phone: 7(551)014-177582 [place] [address] 09-03-2022 11:14-0400 Systolic blood pressure 134 mm[Hg] Dr. Stefani Ball Work Phone: 1(455)461-303482 [place] [address] 07-07-2022 08:56-0400 Body height 160.[address] Stefani Ball Work Phone: 9(516)289-763374 [address] 07-07-2022 08:56-0400 Body mass index (BMI) [Ratio] 30.7 kg/m2 Dr. Stefani Ball Work Phone: 9(318)017-790282 [place] [address] 07-07-2022 08:56-0400 Body temperature 97.8 [degF] Dr. Stefani Ball Work Phone: 0(073)838-681882 [place] [address] 07-07-2022 08:56-0400 Body weight 78.[address] Stefani Ball Work Phone: [facility] 07-07-2022 08:56-0400 Diastolic blood pressure 70 mm[Hg] Dr. Stefani Ball Work Phone: [facility] 07-07-2022 08:56-0400 Heart rate 66 /min Dr. Stefani Ball Work Phone: [facility] 07-07-2022 08:56-0400 Respiratory rate 16 /min Dr. Stefani Ball Work Phone: [facility] 07-07-2022 08:56-0400 SaO2% (BldA) [Mass fraction] 99 % Dr. Stefani Ball Work Phone: [facility] 07-07-2022 08:56-0400 Systolic blood pressure 136 mm[Hg] Dr. Stefani Ball Work Phone: [facility] 04-22-2022 08:32-0500 Body mass index (BMI) [Ratio] 30.3 kg/m2 Dr. Stefani Ball Work Phone: [facility] 04-22-2022 08:32-0500 Body temperature 97.8 [degF] Dr. Stefani Ball Work Phone: [facility] 04-22-2022 08:32-0500 Body weight 79.[address] Stefani Ball Work Phone: [facility] 04-22-2022 08:32-0500 Diastolic blood pressure 76 mm[Hg] Dr. Stefani Ball Work Phone: [facility] 04-22-2022 08:32-0500 Heart rate 81 /min Dr. Stefani Ball Work Phone: [facility] 04-22-2022 08:32-0500 Respiratory rate 18 /min Dr. Stefani Ball Work Phone: [facility] 04-22-2022 08:32-0500 SaO2% (BldA) [Mass fraction] 97 % Dr. Stefani Ball Work Phone: [facility] 04-22-2022 08:32-0500 Systolic blood pressure 168 mm[Hg] Dr. Stefani Ball Work Phone: [facility] 01-11-2022 13:18-0400 Body temperature 97.4 [degF] Dr. Stefani Ball Work Phone: [facility] Work Phone: 01-11-2022 13:18-0400 Diastolic blood pressure 69 mm[Hg] Dr. Stefani Ball Work Phone: [facility] Work Phone: 01-11-2022 13:18-0400 Heart rate 79 /min Dr. Stefani Ball Work Phone: [facility] Work Phone: 01-11-2022 13:18-0400 Respiratory rate 18 /min Dr. Stefani Ball Work Phone: [facility] Work Phone: 01-11-2022 13:18-0400 SaO2% (BldA) [Mass fraction] 99 % Dr. Stefani Ball Work Phone: [facility] Work Phone: 01-11-2022 13:18-0400 Systolic blood pressure 149 mm[Hg] Dr. Stefani Ball Work Phone: [facility] Work Phone: 01-11-2022 00:05-0400 Body mass index (BMI) [Ratio] 30.7 kg/m2 Dr. Stefani Ball Work Phone: [facility] Work Phone: 01-10-2022 21:09-0400 Body height 160.[address] Stefani Ball Work Phone: [facility] Work Phone: 01-10-2022 21:09-0400 Body weight 78.[address] Stefani Ball Work Phone: [facility] Work Phone: 01-10-2022 20:48-0400 Body temperature 97.7 [degF] [facility] Work Phone: 01-10-2022 20:48-0400 Diastolic blood pressure 71 mm[Hg] [facility] Work Phone: 01-10-2022 20:48-0400 Heart rate 73 /min [facility] Work Phone: 01-10-2022 20:48-0400 Respiratory rate 16 /min [facility] Work Phone: 01-10-2022 20:48-0400 SaO2% (BldA) [Mass fraction] 98 % [facility] Work Phone: 01-10-2022 20:48-0400 Systolic blood pressure 168 mm[Hg] [facility] Work Phone: 01-10-2022 16:57-0400 Body height 160.02 cm [facility] Work Phone: 01-10-2022 16:57-0400 Body mass index (BMI) [Ratio] 31.5 kg/m2 [facility] Work Phone: 01-10-2022 16:57-0400 Body weight 80.7 kg [facility] Work Phone: 12-10-2021 10:06-0400 Body height 160.02 cm [facility] Work Phone: 02-26-2017 14:39-0500 BMI (Body Mass Index) 29.8 kg/m2 Danielle Esp[facility] Work Phone: 02-26-2017 14:39-0500 BP Diastolic 60 mm[Hg] Danielle Espinoza [facility] Work Phone: 02-26-2017 14:39-0500 BP Systolic 140 mm[Hg] Danielle Espinoza [facility] Work Phone: 02-26-2017 14:39-0500 Height 162.56 cm [facility] Work Phone: 02-26-2017 14:39-0500 Pulse (Heart Rate) 76 /min [facility] Work Phone: 02-26-2017 14:39-0500 Respiratory Rate 20 /min [facility] Work Phone: 02-26-2017 14:39-0500 Weight 78.74 kg [facility] Work Phone: 01-10-2016 14:35-0400 BSA (Body Surface Area) 1.83 m2 [facility] Work Phone: Encounters Encounter Date Encounter Type Care Provider Facility Start: 11-14-2024 End: 11-14-[address] Shiva Perkins MD -[facility] Work Phone: Start: 11-14-2024 End: 11-14-[address] Stefani Ball MD Work Phone: [facility] Start: 10-27-2024 End: 10-27-[address] Shiva Perkins MD -[facility] Work Phone: Start: 10-27-2024 End: 10-27-[address] Stefani Ball MD Work Phone: [facility] Start: 10-13-2024 End: 10-13-[address] Shiva Perkins MD -[facility] Work Phone: Start: 10-13-2024 End: 10-13-[address] Stefani Ball MD Work Phone: [facility] Start: 10-04-2024 End: 10-04-2024 Patient encounter procedure Kassidy VICTOR [facility] Work Phone: Start: 10-04-2024 End: 10-04-[address] Stefani Ball MD Work Phone: [facility] Work Phone: Start: 09-26-2024 Encounter for other preprocedural examination Michele Roach [facility] Start: 09-20-2024 End: 09-20-[address] Michele Roach MD -[facility] Work Phone: Start: 09-20-2024 End: 09-20-[address] Stefani Ball MD Work Phone: [facility] Work Phone: Start: 09-09-2024 Non-patient / Non-visit Dr. Michele Roach MD -[facility] Start: 09-09-2024 End: 09-09-2024 Admission to same day surgery center Dr. Michele Roach [facility] Start: 09-09-2024 End: 09-09-[address] Stefani Ball MD Work Phone: [facility] Work Phone: Start: 09-06-2024 End: 09-06-[address] Shiva Perkins MD -[facility] Work Phone: Start: 09-06-2024 End: 09-06-[address] Stefani Ball MD Work Phone: [facility] Work Phone: Start: 09-04-2024 End: 09-04-[address] Stefani Ball MD Work Phone: [facility] Work Phone: Start: 09-04-2024 End: 09-04-[address] Noble Gloria MD -[facility] Work Phone: Start: 08-30-2024 End: 08-30-2024 ambulatory Michele Roach Facility:[facility] Start: 08-30-2024 End: 08-30-2024 Non-patient / Non-visit Dr. Noble Gloria MD -[facility] Work Phone: Start: 08-30-2024 End: 08-30-[address] 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 Michele Roach MD -[facility] Work Phone: Start: 08-12-2024 End: 08-12-2024 ambulatory Michele Roach Facility:[facility] Start: 08-04-2024 End: 08-04-[address] Shiva Perkins MD -[facility] Work Phone: Start: 08-04-2024 End: 08-04-2024 ambulatory Shiva Perkins Facility:[facility] Start: 07-08-2024 End: 07-08-2024 ambulatory Noble Gloria Facility:[facility] Start: 07-08-2024 End: 07-08-[address] Noble Gloria MD -[facility] Work Phone: Start: 07-04-2024 End: 07-04-[address] Shiva Perkins MD -[facility] Work Phone: Start: 07-04-2024 End: 07-04-2024 ambulatory Shiva Perkins Facility:[facility] Start: 06-20-2024 End: 06-20-[address] Michele Roach MD -[facility] Work Phone: Start: 06-20-2024 End: 06-20-2024 ambulatory Michele Roach Facility:[facility] Start: 06-11-2024 End: 06-11-[address] Stefani Ball MD Work Phone: [facility] Work Phone: Start: 06-11-2024 End: 06-11-[address] Shiva Perkins MD -MRI - [facility] Work Phone: Start: 06-11-2024 End: 06-11-2024 ambulatory [facility] Facility:[facility] Start: 06-02-2024 End: 06-02-[address] Shiva Perkins MD -[facility] Work Phone: Start: 06-02-2024 End: 06-02-2024 ambulatory [facility] Facility:[facility] Start: 06-02-2024 End: 06-02-2024 ambulatory [facility] Facility:[facility] Start: 05-23-2024 End: 05-23-[address] Shiva Perkins MD -[facility] Work Phone: Start: 05-23-2024 End: 05-23-2024 ambulatory [facility] Facility:[facility] Start: 05-23-2024 End: 05-23-[address] Michele Roach MD -Radiology, [facility] Work Phone: Start: 05-23-2024 End: 05-23-2024 ambulatory Michele Roach Facility:[facility] Start: 05-20-2024 End: 05-20-2024 Admission to same day surgery center Dr. Thompson Deluca MD -[facility] Start: 05-20-2024 End: 05-20-2024 ambulatory Stefani S Jolliff Facility:[facility] Start: 05-18-2024 Non-patient / Non-visit Dr. Michele Roach MD -[facility] Start: 05-18-2024 End: 05-18-2024 Admission to same day surgery center Dr. Michele Roach MD -Endoscopy Work Phone: Start: 05-18-2024 End: 05-18-2024 ambulatory Stefani S Jolliff Facility:[facility] Start: 05-02-2024 End: 05-02-[address] Michele Roach MD -[facility] Work Phone: Start: 05-02-2024 End: 05-02-2024 ambulatory Michele Roach [facility] Start: 04-28-2024 End: 04-28-[address] Shiva Perkins MD -[facility] Work Phone: Start: 04-28-2024 End: 04-28-2024 ambulatory Shiva Jarquinstan Facility:[facility] Start: 04-08-2024 End: 04-08-2024 ambulatory Stefani Ball Facility:[facility] Start: 04-08-2024 End: 04-08-[address] Noble Gloria MD -[facility] Work Phone: Start: 03-15-2024 End: 03-15-[address] Shiva Perkins MD -[facility] Work Phone: Start: 03-15-2024 End: 03-15-2024 ambulatory Shiva Jarquinstan Facility:[facility] Start: 03-01-2024 End: 03-01-[address] Shiva Perkins MD -[facility] Work Phone: Start: 03-01-2024 End: 03-01-2024 ambulatory Shiva Jarquinstan Facility:[facility] Start: 02-25-2024 End: 02-25-[address] Shiva Perkins MD -[facility] Work Phone: Start: 02-25-2024 End: 02-25-2024 ambulatory Shiva Jarquinstan Facility:[facility] Start: 02-11-2024 End: 02-11-2024 ambulatory Shiva Jarquinstan Facility:[facility] Start: 01-11-2024 End: 01-11-2024 ambulatory Shiva Jarquinstan Facility:[facility] Start: 01-08-2024 End: 01-08-2024 ambulatory Stefani Ball [facility] Start: 12-10-2023 End: 12-10-2023 ambulatory Shiva Perkins Facility:[facility] Start: 08-17-2023 End: 08-17-[address] Stefani Ball Work Phone: [facility] Work Phone: Start: 08-17-2023 End: 08-17-[address] Stefani Ball Work Phone: [facility] Start: 08-06-2023 Non-patient / Non-visit Dr. Misty Ball Work Phone: [facility] Start: 08-06-2023 End: 08-06-2023 Admission to same day surgery center Dr. Stefani Ball Work Phone: [facility]-Endoscopy Work Phone: Start: 08-06-2023 End: 08-06-[address] Stefani Ball Work Phone: [facility] Work Phone: Start: 07-23-2023 End: 07-23-[address] Stefani Ball Work Phone: [facility] Work Phone: Start: 07-10-2023 End: 07-10-[address] Stefani Ball Work Phone: [facility] Work Phone: Start: 07-09-2023 End: 07-09-[address] Stefani Ball Work Phone: [facility] Work Phone: Start: 06-22-2023 End: 06-22-[address] Stefani Ball Work Phone: [facility] Work Phone: Start: 05-21-2023 End: 05-21-[address] Stefani Ball Work Phone: [facility] Work Phone: Start: 05-08-2023 End: 05-08-[address] Stefani Ball Work Phone: [facility] Work Phone: Start: 05-08-2023 End: 05-08-[address] Steafni Ball Work Phone: [facility]-Radiology, [place] Work Phone: Start: 04-20-2023 End: 04-20-[address] Stefani Ball Work Phone: [facility] Work Phone: Start: 04-10-2023 End: 04-10-[address] Stefani Ball Work Phone: [facility] Work Phone: Start: 03-19-2023 End: 03-19-[address] Stefani Ball Work Phone: [facility] Work Phone: Start: 03-12-2023 End: 03-12-[address] Stefani Ball Work Phone: [facility] Work Phone: Start: 02-19-2023 End: 02-20-2023 Emergency department patient visit Dr. Stefani Ball Work Phone: [facility]-Emergency Department Work Phone: Start: 02-17-2023 End: 02-18-[address] STEFANI BALL MD Facility:[facility] Start: 02-17-2023 End: 02-18-[address] ROGERIO PHILLIPS MD [facility] Start: 02-16-2023 End: 02-16-[address] Stefani Blal Work Phone: [facility] Work Phone: Start: 01-29-2023 End: 01-30-[address] ROGERIO PHILLIPS MD Facility:[facility] Start: 01-29-2023 End: 01-30-[address] ROGERIO PHILLIPS MD Facility:[facility] Start: 01-29-2023 End: 01-29-[address] ROGERIO PHILLIPS MD [facility] Start: 01-29-2023 End: 01-29-[address] ROGERIO PHILLIPS MD [facility] Start: 01-29-2023 End: 01-29-[address] Stefani Ball Work Phone: [facility]-Laboratory, Specimen Work Phone: Start: 01-29-2023 End: 01-29-[address] Stefani Ball Work Phone: [facility] Work Phone: Start: 01-20-2023 End: 01-20-[address] Stefani Ball Work Phone: [facility]-Laboratory Work Phone: Start: 01-14-2023 End: 01-14-[address] Stefani Ball Work Phone: [facility] Work Phone: Start: 01-05-2023 Non-patient / Non-visit Dr. Misty Ball Work Phone: [facility] Start: 01-05-2023 End: 01-05-[address] Stefani Ball Work Phone: [facility] Work Phone: Start: 01-05-2023 End: 01-05-[address] Stefani Ball Work Phone: [facility]-Pulmonary Services/Neurology Work Phone: Start: 12-31-2022 Non-patient / Non-visit Dr. Misty Ball Work Phone: [facility] Start: 12-31-2022 End: 12-31-[address] Stefani Ball Work Phone: [facility] Work Phone: Start: 12-31-2022 End: 12-31-[address] Stefani Ball Work Phone: [facility]-Pulmonary Services/Neurology Work Phone: Start: 12-18-2022 End: 12-18-[address] Stefani Ball Work Phone: [facility] Work Phone: Start: 12-18-2022 End: 12-18-[address] [facility] Work [facility] Start: 12-18-2022 End: 12-18-[address] Stefani Ball Work Phone: [facility] Work Phone: Start: 12-01-2022 End: 12-01-[address] Stefani Ball Work Phone: [facility] [place], [facility] Work Phone: Start: 11-24-2022 End: 11-24-[address] Stefani Ball Work Phone: [facility] Work Phone: Start: 11-24-2022 End: 11-24-[address] Stefani Ball Work Phone: [facility] Start: 11-06-2022 End: 11-06-[address] Stefani Ball Work Phone: [facility] Work Phone: Start: 10-16-2022 End: 10-16-[address] Stefani Ball Work Phone: [facility] Work Phone: Start: 10-16-2022 End: 10-16-[address] Stefani Ball Work Phone: [facility]patient [facility] Ultrasound Work Phone: Start: 09-22-2022 Non-patient / Non-visit Dr. Misty Ball Work Phone: [facility] Start: 09-22-2022 End: 09-22-[address] [facility]ani [facility] Work Phone: Start: 09-04-2022 Non-patient / Non-visit Dr. Misty Ball Work Phone: [facility] Start: 09-04-2022 End: 09-04-[address] Stefani Ball Work Phone: [facility] Work Phone: Start: 09-04-2022 End: 09-04-[address] Ste[facility]ani Ball [facility] Start: 09-03-2022 End: 09-03-[address] Stefani Ball Work Phone: [facility] Start: 08-12-2022 End: 08-12-[address] Stefani Ball Work Phone: [facility] Work Phone: Start: 08-12-2022 End: 08-12-[address] Setfani Ball Work Phone: [facility]-Laboratory, [place] Start: 08-11-2022 End: 08-11-[address] Stefani Ball Work Phone: [facility] Work Phone: Start: 08-11-2022 End: 08-11-[address] Stefani Ball Work Phone: [facility]-MRI - [facility] Start: 07-20-[address] Stefani sanches Work Phone: [facility]-Cardiovascula r Services Start: 07-14-2022 End: 07-14-[address] Stefani Ball Work Phone: [facility] Work Phone: Start: 07-14-2022 End: 07-14-[address] Stefani Ball Work Phone: [facility] [place], [facility] Start: 07-07-2022 End: 07-07-[address] Stefani Ball Work Phone: [facility] Start: 04-28-2022 End: 04-28-[address] Stefani Ball Work Phone: [facility]-Laboratory, Specimen Start: 04-28-2022 End: 04-28-[address] Stefani Ball Work Phone: [facility] Start: 04-22-2022 End: 04-22-[address] Stefani Ball Work Phone: [facility] Start: 04-18-2022 End: 04-18-[address] Stefani Ball Work Phone: [facility]-Outpatient Breast Imaging Start: 01-11-2022 Non-patient / Non-visit Dr. Misty Ball Work Phone: [facility] Inpatient Physicians Start: 01-11-2022 Non-patient / Non-visit Dr. Misty Ball Work Phone: [facility] Start: 01-10-2022 Non-patient / Non-visit Dr. Misty Ball Work Phone: [facility] Start: 01-10-2022 End: 01-11-2022 Evaluation and management of inpatient [facility]-Progressive Care Unit Start: 01-10-2022 End: 01-11-[address] Stefani Ball Work Phone: [facility] Work Phone: Start: 01-10-2022 End: 01-10-[address] Stefani Ball Work Phone: [facility] Work Phone: Start: 01-10-2022 End: 01-10-2022 Patient encounter procedure [facility]-Cardiovascula r Services Start: 12-10-2021 End: 12-10-2021 ambulatory [facility] Work Phone: Start: 12-10-2021 End: 12-10-2021 Patient encounter procedure [facility]-Outpatient Bone Densitometry Procedures Date Procedure Procedure Detail Performing Clinician Start: 09-09-[address] Stefani Ball MD Work Phone: Start: 08-30-2024 Dual energy X-ray absorptiometry Dr. Stefani Ball MD Work Phone: Start: 08-30-[address] Stefani Ball MD Work Phone: Start: 06-11-2024 MRI of brain without contrast Dr. Stefani sanches MD Work Phone: Start: 05-23-2024 X-ray of esophagus with double contrast Dr. Stefani Ball MD Work Phone: Start: 05-18-[address] Stefani Ball MD Work Phone: Start: 04-08-2024 Plain chest X-ray Dr. Stefani Ball MD Work Phone: Start: 04-08-2024 Plain X-ray abdomen Dr. Stefani Ball MD Work Phone: Start: 08-06-[address] Stefani bell Work Phone: Start: 05-08-2023 Radiography of nasal sinuses Dr. Stefani qureshi Work Phone: Start: 02-19-2023 Radiologic examination of knee Dr. Stefani rivero Work Phone: Start: 02-19-2023 Bacteria identified in Blood by Culture Dr. Stefani Ball Work Phone: Start: 12-01-2022 US scan of thyroid Dr. Stefani Ball Work Phone: Start: 10-16-[address] Stefani garcía Work Phone: Start: 08-11-2022 MRI of brain with contrast Dr. Stefani bell Work Phone: Start: 07-14-2022 US scan of thyroid Dr. Stefani Ball Work Phone: Start: 04-18-[address] Stefani garcía Work Phone: Start: 04-18-[address] Stefani Ball Work Phone: Start: 01-11-2022 MRI of brain without contrast Dr. Stefani sanches Work Phone: Start: 01-10-2022 Plain chest X-ray Start: 01-10-2022 CT angiography of head and neck Start: 12-10-2021 Dual energy X-ray absorptiometry Start: 12-10-2021 Screening mammography Start: 01-14-2016 End: 01-14-2016 Follow Up BP Check Noble Gloria MD Start: 01-10-2016 End: 01-10-2016 Follow Up Appt 1 year Noble Gloria MD Start: 01-10-2016 End: 01-10-2016 MMM Noble Gloria MD Start: 02-01-2015 End: 02-07-2015 Ambulatory BP Monitor 24 HR Noble Estrada i, MD Start: 10-12-2014 End: 10-12-2014 CAREER SERVICES COORDINATOR Noble Gloria MD Start: 10-12-2014 End: 10-13-2014 Documentation of current medications Noble Gloria MD Start: 10-12-2014 End: 10-12-2014 Follow Up Appt 6 months Igor Bermeo Start: 09-22-2014 End: 10-11-2014 *24 hour urine for metanephrines Noble Gloria MD Start: 09-22-2014 End: 10-11-2014 Vanillylmandelate [Mass/time] in 24 hour Urine Noble Gloria MD Start: 07-04-2014 End: 07-04-2014 CAREER SERVICES COORDINATOR Reshma Mccloud PA-C Work Phone: Start: 07-04-2014 End: 07-05-2014 Documentation of current medications Reshma Mccloud PA-C Work Phone: Start: 07-04-2014 End: 07-04-2014 Follow Up Appt 3 months Reshma Mccloud PA-C Work Phone: Start: 07-04-2014 End: 07-04-2014 Follow Up Appt Other Reshma Mccloud PA-C Work Phone: Start: 06-07-2014 End: 06-07-2014 Nurse, Teaching, Wound Check (no charge) Reshma Mccloud PA-C Work Phone: Start: 06-06-2014 End: 06-08-2014 *BMP Reshma Mccloud PA-C Work Phone: Start: 06-06-2014 End: 06-08-2014 *CBC with Differential Reshma Mccloud PA-C Work Phone: Start: 06-06-2014 End: 06-08-2014 *Hepatic Function Panel Reshma Mccloud PA-C Work Phone: Start: 06-06-2014 [...] 07-04-2014 Follow up Appt 3 weeks Reshma Mccloud PA-C Work Phone: Start: 06-06-2014 End: 06-08-2014 INR in Platelet poor plasma by Coagulation assay Reshma Mccloud PA-C Work Phone: Start: 06-06-2014 End: 06-08-2014 Lipid 1996 panel - Serum or Plasma Mira Mccloud PA-C Work Phone: Start: 05-13-2013 End: 05-13-2013 Follow Up Appt 6 months Igor Bermeo Start: 05-13-2013 End: 05-13-2013 Igor Gloria MD Start: 01-11-2013 End: 07-04-2014 *Hepatic Function Panel Igor Bermeo Start: 01-11-2013 End: 07-04-2014 Lipid 1996 panel - Serum or Plasma [...] Gloria MD Start: 04-22-2012 End: 04-29-2012 Lipid 1996 panel - Serum [...] Arthroscopy of knee DR MEGHANA PHILLIPS MD Comment on above: bilateral Biopsy of thyroid DR ROGERIO PHILLIPS MD Cardiac catheterization DR Clinton PHILLIPS MD Extraction of cataract DR KEYUR ROSENTHAL Comment on above: bilateral Hysterectomy DR ROGERIO Yanes MD Implantation of inse rtable loop recorder DR ROGERIO PHILLIPS MD Nasal septoplasty DR ROGERIO PHILLIPS MD Tot disc arthrp art disc ant appro [address] ROGERIO PHILLIPS MD Plan of Treatment Date Care Activity Detail Author Start: 09-09-2024 Anes intraperitoneal upper abdomen w/laps nos ANES IPER UPR ABD NOS [facility] Start: 09-09-2024 Laps abd prtm&omentum dx w/wo spec br/wa spx DIAG LAPARO SEPARATE PROC [facility] Start: 09-09-2024 Patient discharge [facility] Start: 05-20-2024 Egd removal tumor polyp/other lesion snare tech EGD REMOVE LESION SNARE [facility] Start: 05-20-2024 Egd transoral biopsy single/multiple EGD BIOPSY SINGLE/MULTIPLE [facility] Start: 05-20-2024 Patient discharge [facility] Start: 05-18-2024 Patient discharge [facility] Start: 08-06-2023 Egd removal tumor polyp/other lesion snare tech EGD REMOVE LESION SNARE [facility] Start: 08-06-2023 Egd transoral biopsy single/multiple EGD BIOPSY SINGLE/MULTIPLE [facility] Start: 08-06-2023 Patient discharge [facility] Start: 02-19-2023 End: 02-19-2023 Blood culture [facility] Start: 02-19-2023 Bacteria identified in Blood by Culture Blood Culture [facility] Start: 11-24-2022 [place] and lambda light chains [facility] Start: 11-24-2022 Thiamine measurement [facility] Start: 07-07-2022 Patient referral [facility] Work Phone: Start: 01-11-2022 Patient discharge [facility] Work Phone: Start: 01-11-2022 Referral to occupational therapist [facility] Work Phone: Start: 01-11-2022 Referral to service [facility] Work Phone: Start: 01-11-2022 Speech therapy assessment [facility] Work Phone: Start: 01-10-2022 End: 01-10-2022 Following clinical pathway protocol [facility] Work Phone: Start: 01-10-2022 Assessment of risk of venous thromboembolism [facility] Work Phone: Start: 01-10-2022 Cardiac monitoring [facility] Work Phone: Start: 01-10-2022 Catheterization of vein [facility] Work Phone: Start: 01-10-2022 Chart related administrative procedure [facility] Work Phone: Start: 01-10-2022 Continuous pulse oximetry [facility] Work Phone: Start: 01-10-2022 Elevation of head of bed [facility] Work Phone: Start: 01-10-2022 Exercises [facility] Work Phone: Start: 01-10-2022 Implementation of planned interventions [facility] Work Phone: Start: 01-10-2022 Insertion of catheter into peripheral vein [facility] Work Phone: Start: 01-10-2022 Measuring intake and output [facility] Work Phone: Start: 01-10-2022 Notification of physician [facility] Work Phone: Start: 01-10-2022 Oxygen therapy [facility] Work Phone: Start: 01-10-2022 Providing care according to standard [facility] Work Phone: Start: 01-10-2022 Referral to service [facility] Work Phone: Start: 01-10-2022 Tobacco use cessation education [facility] Work Phone: Start: 01-10-2022 [facility] Work Phone: Start: 01-10-2022 Verification routine [facility] Work Phone: Start: 01-10-2022 Admission procedure [facility] Work Phone: Start: 01-10-2022 Oxygen therapy [facility] Work Phone: Start: 01-10-2022 [facility] Work Phone: Start: 02-26-2017 End: 02-26-2017 Appointment Appointment [facility] Work Phone: Start: 02-26-2017 End: 02-26-2017 CAREER SERVICES COORDINATOR CAREER SERVICES COORDINATOR [facility] Work Phone: Start: 02-26-2017 End: 02-26-2017 Follow Up Appt Other Follow Up Appt Other [facility] Work Phone: Start: 01-14-2016 End: 01-14-2016 Follow Up BP Check Follow Up BP Check [facility] Work Phone: Start: 01-10-2016 End: 01-10-2016 Follow Up Appt 1 year Follow Up Appt 1 year [facility] Work Phone: Start: 01-10-2016 End: 01-10-2016 MMM MMM [facility] Work Phone: Start: 02-01-2015 End: 02-02-2015 Ambulatory BP Monitor 24 HR Ambulatory BP Monitor 24 HR [facility] Work Phone: Start: 10-12-2014 End: 10-12-2014 CAREER SERVICES COORDINATOR CAREER SERVICES COORDINATOR [facility] Work Phone: Start: 10-12-2014 End: 10-12-2014 Follow Up Appt 6 months Follow Up Appt 6 months [facility] Work Phone: Start: 09-22-2014 End: 10-11-2014 *24 hour urine for metanephrines *24 hour urine for metanephrines [facility] Work Phone: Start: 09-22-2014 End: 10-11-2014 Vanillylmandelate [Mass/time] in 24 hour Urine *VMA Urine VMA [facility] Work Phone: Start: 08-05-2014 End: 06-13-2014 *Hepatic Function Panel *Hepatic Function Panel [facility] Work Phone: Start: 08-05-2014 End: 06-13-2014 Lipid panel [AGGREGATE] *Lipid Profile CC PCP [facility] Work Phone: Start: 07-04-2014 End: 07-04-2014 CAREER SERVICES COORDINATOR CAREER SERVICES COORDINATOR [facility] Work Phone: Start: 07-04-2014 End: 07-04-2014 Follow Up Appt 3 months Follow Up Appt 3 months [facility] Work Phone: Start: 07-04-2014 End: 07-04-2014 Follow Up Appt Other Follow Up Appt Other [facility] Work Phone: Start: 06-06-2014 End: 06-08-2014 *BMP *BMP [facility] Work Phone: Start: 06-06-2014 End: 06-08-2014 *CBC with Differential *CBC with Differential [facility] Work Phone: Start: 06-06-2014 End: 06-08-2014 *Hepatic Function Panel *Hepatic Function Panel [facility] Work Phone: Start: 06-06-2014 End: 06-08-2014 aPTT *PTT-Partial Thromboplastin Time [facility] Work Phone: Start: 06-06-2014 End: 06-08-2014 Chest x-ray X-Ray, Chest, PA & Lateral [facility] Work Phone: Start: 06-06-2014 End: 07-04-2014 Ecg routine ecg w/least 12 lds w/i&r EKG (In office) [facility] Work Phone: Start: 06-06-2014 End: 06-07-2014 Follow up Appt 3 weeks Follow up Appt 3 weeks [facility] Work Phone: Start: 06-06-2014 End: 06-08-2014 INR Coag RelTime (PPP) *PT/INR [facility] Work Phone: Start: 06-06-2014 End: 06-08-2014 Left Heart Cath Left Heart Cath [facility] Work Phone: Start: 06-06-2014 End: 06-08-2014 Lipid panel [AGGREGATE] *Lipid Profile CC PCP [facility] Work Phone: Start: 06-06-2014 End: 06-06-2014 Thyroid stimulating hormone (TSH) *TSH [facility] Work Phone: Start: 05-13-2013 End: 05-13-2013 Follow Up Appt 6 months Follow Up Appt 6 months [facility] Work Phone: Start: 05-13-2013 End: 05-13-2013 MMM MMM [facility] Work Phone: Start: 01-11-2013 End: 07-04-2014 *Hepatic Function Panel *Hepatic Function Panel [facility] Work Phone: Start: 01-11-2013 End: 07-04-2014 Lipid panel [AGGREGATE] *Lipid Profile [facility] Work Phone: Start: 07-12-2012 End: 07-15-2012 *Hepatic Function Panel *Hepatic Function Panel [facility] Work Phone: Start: 07-12-2012 End: 07-15-2012 Lipid panel [AGGREGATE] *Lipid Profile [facility] Work Phone: Start: 06-10-2012 End: 11-01-2013 *Hepatic Function Panel *Hepatic Function Panel [facility] Work Phone: Start: 04-22-2012 End: 04-29-2012 *Hepatic Function Panel *Hepatic Function Panel [facility] Work Phone: Start: 04-22-2012 End: 11-01-2013 Follow Up Appt 1 year Follow Up Appt 1 year [facility] Work Phone: Start: 04-22-2012 End: 04-29-2012 Lipid panel [AGGREGATE] *Lipid Profile [facility] Work Phone: Start: 02-03-2012 End: 03-07-2013 *Hepatic Function Panel *Hepatic Function Panel [facility] Work Phone: Start: 02-03-2012 End: 04-29-2012 Lipid panel [AGGREGATE] *Lipid Profile [facility] Work Phone: Start: 12-15-2011 End: 04-29-2012 *Hepatic Function Panel *Hepatic Function Panel [facility] Work Phone: Start: 10-22-2011 End: 04-29-2012 *Hepatic Function Panel *Hepatic Function Panel [facility] Work Phone: Start: 10-22-2011 End: 04-29-2012 Lipid panel [AGGREGATE] *Lipid Profile [facility] Work Phone: Start: 04-24-2011 End: 04-24-2011 Carotid duplex Carotid duplex [facility] Work Phone: Start: 04-24-2011 End: 04-24-2011 Follow Up Appt 1 year Follow Up Appt 1 year [facility] Work Phone: Complete blood count [facility] Hemoglobin A1c/Hemoglobin.total in Blood [facility] Hepatic function panel [facility] [place]lambda light c enrico ratio [facility] Lambda light chains. free [Mass/volume] in Serum or Plasma [facility] Lipid 1995 panel - S timothy or Plasma [facility] Lipid 1995 panel - S timothy or Plasma [facility] Patient Education [facility] Work Phone: Patient referral [facility] Work Phone: Replacement of elect ronic heart device, pulse generator [facility] Urine kappa light ch ain measurement [facility] US Carotid arteries [facility] Immunizations Immunization Date Immunization Notes Care Provider Fa [facility] 02-18-2023 influenza virus vacc ine, unspecified formulation DR ROGERIO PHILLIPS MD [facility] 01-17-2022 influenza virus vacc ine, unspecified formulation DR ROGERIO PHILLIPS MD [facility] 04-18-2021 SARS-CoV-2 mRNA (tozinameran) vaccine DR ROGERIO PHILLIPS MD [facility] 12-14-2020 influenza virus vacc ine, unspecified formulation DR ROGERIO PHILLIPS MD [facility] 12-14-[address] ROGERIO PHILLIPS MD [facility] 07-18-2020 SARS-CoV-2 mRNA (tozinameran) vaccine DR ROGERIO PHILLIPS MD [facility] 06-28-2020 SARS-CoV-2 mRNA (tozinameran) vaccine DR ROGERIO PHILLIPS MD [facility] 04-11-2019 tetanus toxoid, redu maile diphtheria toxoid, and acellular pertussis vaccine, adsorbed DR ROGERIO PHILLIPS MD [facility] 03-25-2019 influenza virus vacc ine, unspecified formulation DR ROGERIO PHILLIPS MD [facility] 03-02-2018 pneumococcal polysaccharide vaccine, [address] ROGERIO PHILLIPS MD [facility] 03-10-2017 zoster vaccine, live DR ARY PHILLIPS MD [facility] 12-09-2016 influenza virus vacc ine, unspecified formulation DR ROGERIO PHILLIPS MD [facility] 12-09-2016 pneumococcal conjuga te vaccine, [address] ROGERIO PHILLIPS MD [facility] 01-30-2014 influenza virus vacc ine, unspecified formulation DR ROGERIO PHILLIPS MD [facility] Payers Date Payer Category Payer Self-pay [id number] 2020 Private Health Insurance [facility] [id number] 2012 Unknown [facility] [id number] 1950 Unknown [id number] .[id number] 1950 Unknown [id number] ..1.663213.3.579.2.627 1950 Unknown [id number] 2.840.1.893578.3.579.2.627 Unknown [id number] .840.1.167331.3.579.2.462 Unknown [id number] .840.1.808452.3.579.2.462 Unknown [id number] 2.16.840.1.970434.3.579.2.462 Unknown [id number] 2.16.840.1.477754.3.579.2.462 Unknown [id number] 2.16.840.1.161432.3.579.2.462 Unknown [id number] 2.16.840.1.303744.3.579.2.462 Unknown [id number] 2.16.840.1.147927.3.579.2.462 Unknown [id number] 2.16840.1.983009.3.579.2.462 Unknown [id number] 2.16840.1.465613.3.579.2.462 Unknown [id number] 2.16840.1.903045.3.579.2.462 Unknown [id number] 2.840.1.244951.3.579.2.462 Unknown [id number] 2.840.1.952704.3.579.2.462 Unknown [id number] 2.840.1.237841.3.579.2.462 Unknown [id number] 2.840.1.128669.3.579.2.462 Unknown [id number] 2.16840.1.126687.3.579.2.462 Unknown [id number] 2.16840.1.114166.3.579.2.462 Unknown [id number] 2.16840.1.052776.3.579.2.462 Unknown [id number] 2.16840.1.813430.3.579.2.462 Unknown [id number] 2.16840.1.893347.3.579.2.462 Unknown [id number] 2.16.840.1.964425.3.579.2.462 Unknown [id number] 2.16.840.1.120208.3.579.2.462 Unknown [id number] 2.16.840.1.055901.3.579.2.462 Unknown [id number] 2.16.840.1.886725.3.579.2.462 Unknown [id number] 2.16.840.1.666537.3.579.2.462 Unknown [id number] 2.16.840.1.388208.3.579.2.462 Unknown [id number] 2.16.840.1.893220.3.579.2.462 Unknown [id number] 2.16.840.1.310402.3.579.2.462 Unknown [id number] 2.16.840.1.523531.3.579.2.462 Unknown [id number] 2.16.840.1.336009.3.579.2.462 Unknown [id number] 2.16.840.1.793537.3.579.2.462 Unknown [id number] 2.16.840.1.841624.3.579.2.462 Unknown [id number] 2.16.840.1.303666.3.579.2.462 Unknown [id number] 2.16.840.1.994848.3.579.2.462 Unknown [id number] 2.16.840.1.158448.3.579.2.462 Unknown [id number] 2.16.840.1.996630.3.579.2.462 Social History Date Type Detail Facility Start: 12-03-2014 End: 08-03-2023 Tobacco smoking status NHIS Unknown if ever smoked [facility] Start: 1950 Sex Assigned At Female [facility] Start: 01-29-2023 End: 08-25-2024 Tobacco smoking status Never smoked tobacco (finding) [facility] Start: 06-24-2024 Sex Female (finding) [facility] Not [facility] NEGATED: Highlighted row [facility] NEGATED: Highlighted row Not [facility] Medical Equipment Procedure Code Equipment Code Equipment Origin al Text Equipment Identifier Dates Lora fundoplication PLEDGET,SOFT 8x8x1.6mm FD A Start: 09-09-2024 Lora fundoplication PLEDGET,SOFT 8x8x1.6mm FD A Start: 09-09-2024 Lora fundoplication PLEDGET,SOFT 8x8x1.6mm FD A Start: 09-09-2024 Lora fundoplication PLEDGET,SOFT 8x8x1.6mm FD A Start: 09-09-2024 Lora fundoplication PLEDGET,SOFT 8x8x1.6mm FD A Start: 09-09-2024 Lora fundoplication PLEDGET,SOFT 8x8x1.6mm FD A Start: 09-09-2024 Lora fundoplication PLEDGET,SOFT 8x8x1.6mm FD A Start: 09-09-2024 Lora fundoplication PLEDGET,SOFT 8x8x1.6mm FD A Start: 09-09-2024 Lora fundoplication PLEDGET,SOFT 8x8x1.6mm FD A Start: 09-09-2024 Lora fundoplication PLEDGET,SOFT 8x8x1.6mm FD A Start: 09-09-2024 Lora fundoplication PLEDGET,SOFT 8x8x1.6mm FD A Start: 09-09-2024 Lora fundoplication PLEDGET,SOFT 8x8x1.6mm FD A Start: 09-09-2024 EGD, with monitored anesthesia care Gastrointestinal telemetric monitoring system ()[id number] FDA Start: 08-06-2023 EGD, with monitored anesthesia care Ligation clip, metallic ()[id number] FDA Start: 08-06-2023 ([id number]) Implantable card iac monitor ()[id number] FDA Start: 09-22-2022 Goals Date Patient Goal Desired Activity /State Functional Status Date Assessment Result Facility 02-18-2023 Functional Status bilateral knee high applied/on [facility] 02-18-2023 Functional Status Front wheeled walker [facility] 02-18-2023 Functional Status Independent [facility] 02-18-2023 Functional Status Multilevel bassem e, 2nd floor bedroom, 2nd floor bathroom [facility] 02-18-2023 Functional Status ice on [facility] 02-17-2023 Functional Status [facility] 02-17-2023 Functional Status [facility] 02-17-2023 Functional Status [facility] 02-17-2023 Functional Status Maintained [facility] 01-29-2023 Functional Status Sensory Deficits None A [facility] 01-11-2022 Functional status Ambulates;Up ad cecilia [facility] Work Phone: Mental Status Date Assessment Result Facility 09-09-2024 Cognitive function Voice/Name [facility] Work Phone: 05-20-2024 Cognitive function Awake;Alert;A ppropriate;Follow s Commands [facility] Work Phone: 05-18-2024 Cognitive function Voice/Name [facility] Work Phone: 08-06-2023 Cognitive function Level Of Consciousness Sedated [facility] Work Phone: 08-06-2023 Cognitive function Voice/Name [facility] Work Phone: 02-18-2023 Mental [facility] Status [facility] 02-17-2023 Mental Status [facility] 01-11-2022 Cognitive function Voice/Name [facility] Work Phone: Clinical Notes 12-31-2022 to 09-09-2024 Note Date & Type Note Facility 09-09-2024 Consult note Note Date/Time September 09, 2024 9:52a m [facility] Medical Records Department [address] [address] Anesthesia Postop Eval I 09/09/24 0951 MR#: [id number] Acct: [id number] Name: ANABELLA SALVADOR Rep #:[id number] : 1950 74 From: Racheal GOYAL PCP: Dr. Stefani Ball MD Status:REG [facility] Race: C Location: [place] [address] Anesthesia: Postop Eval I Current Vital Signs Temperature: 98.3 F Pulse Rate: 82 Blood Pressure: 164/70 Respiratory Rate: 16 Pulse Ox: 96 Oxygen Delivery Method: Nasal Cannula Oxygen Flow Rate (L/min): 2 Assessment Airway patent: Yes Spontaneous unlabored respirations: Yes Mental status: Awake and Calm nausea: No Vomiting: No Anesthesia Complication: No Fluid Hydration Crystalloid volume administer (ml): 1,000 Total IV fluid infused: 1,000 Progress Note Anesthesia document: Postop Eval 1 completed: Yes 09/09/2452 <Electronically signed by Racheal Amado CRNA> Date _ Racheal Amado CRNA Cosigner Signature: Date CC: ~ Signed [facility] Work Phone: 1(617) 695-100905-30-2025 Consult note [facility] Medical Records Department [address] [address] Anesthesia Postop Eval I 09/09/24 0951 MR#: [id number] Acct: [id number] Name: ANABELLA SALVADOR Rep #:[id number] : 1950 74 From: Racheal GOYAL PCP: Dr. tSefani Ball MD Status:REG [facility] Y Race: C Location: [place] [address] Anesthesia: Postop Eval I Current Vital Signs Temperature: 98.3 F Pulse Rate: 82 Blood Pressure: 164/70 Respiratory Rate: 16 Pulse Ox: 96 Oxygen Delivery Method: Nasal Cannula Oxygen Flow Rate (L/min): 2 Assessment Airway patent: Yes Spontaneous unlabored respirations: Yes Mental status: Awake and Calm nausea: No Vomiting: No Anesthesia Complication: No Fluid Hydration Crystalloid volume administer (ml): 1,000 Total IV fluid infused: 1,000 Progress Note Anesthesia document: Postop Eval 1 completed: Yes 09/09/24 0952 OUTBOUND CALL CENTER REPRESENTATIVE> Date _ Racheal Dotterer OUTBOUND CALL CENTER REPRESENTATIVE Cosigner Signature: Date CC: ~ Signed [facility]05-30-2025 Consult note Author José Miguel [facility] Note Date/Time September 09, 2024 7:06a [facility] Medical Records Department [address] [place] [address] Pre-Anesthesia Evaluation 09/09/24 0649 MR#: [id number] Acct: [id number] Name: CASEANABELLA Rep #:[id number] : 1950 74 From: José Miguel Cardona MD PCP: Dr. Stefani Ball MD Status:REG [facility] Race: C Location: [place] [address] José Miguel Cardona MD on 09/09/24 at 0706 Addendum Temperature is 97.8. Heart rate 67. SpO2 is 98%. Respiratory rate is 18. Blood pressure is 134/66. 09/09/24 0706 <Electronically signed by José Miguel torres MD> Date _ José Miguel Cardona MD cc: ~* Signed ASA Classification* ASA Classification ASA Classification: 3 Assessment & Plan Anesthesia* Anesthesia Assessment Anesthesia Assessment: Discussed sedation and/or anesthesia options, risks, benefits, and alternatives with patient/parents/legal guardian/POA. Questions invited. The patient/parents/legal guardian/POA seems to understand and agrees to proceedwith anesthesia plan. Reviewed the physical assessment, medical history, allergy history and patient home medications list prior to surgery/procedure/anesthetic and documented any changes. Performed airway and anesthesia risk assessments. Anesthesia Type Anesthesia Type: General (Consider GlideScope intubation.) History Source History Obtained from:: Patient and Chart Anesthesia Focused Assessment* Oxygen Delivery Method: Room Air Airway Assessment Mouth opens: >3 cm Mallampati Score: IV Teeth Condition: Missing (Patient has a bottom right molar that is missing. Everything else is tight.) Neck Range of motion (ROM): Full ROM Focused Labs Anesthesia Preop lab: CBC WBC 9.7 K/mm3 (4.4-11.0) 08/30/24 07:36 08/30/24 RBC 4.03 M/mm3 (4.2-5.4) L 08/30/24 07:36 08/30/24 Hgb 11.7 g/dL (12.0-15.0) L 08/30/24 07:36 5 Hct 36.3 % (37-47) L 08/30/24 07:36 08/30/24 Plt Count 271 K/mm3 (150-450) 08/30/24 07:36 08/30/24 CHEMISTRY Potassium 4.0 mmol/L (3.3-5.1) 08/30/24 07:36 08/30/24 Sodium 142 mmol/L (133-145) 08/30/24 07:36 08/30/24 BUN 13 mg/dL (4-19) 08/30/24 07:36 08/30/24 Creatinine 1.11 mg/dL (0.70-1.20) 08/30/24 07:36 08/30/24 Glucose 111 mg/dL (70-99) H 08/30/24 07:36 08/30/24 TSH 2.820 uIU/mL (0.358-3.740) 03/01/24 08:17 02/11 01/04 COAG PT 13.1 SECONDS (11.7-14.9) 01/10/22 17:00 Pre-Assessment Diagnosis/Proposed Procedure Planned Operative Procedure(s): Laparoscopic, Lora Fundoplication Hital herniarepair with toupet fundolplication Anesthesia History Anesthesia History - hand welt butter: Anesthesia History - hand welt butter Hx Hospitalization No 08/25/24 14:30 Any Problems With Anesthesia PONV. Slow to wake up. 08/25/24 14:30 Cholinesterase deficiency No 08/25/24 14:30 You/Your Family Experience No 08/25/24 14:30 fever (hyperthermia) with Relationship Recent Exposure to Contagious No 05/18/24 11:52 Disease Does patient have nerve No 08/25/24 14:30 stimulator Patient instructed to have device shut off --Does patient have Pacemaker or ICD? When Was Last Pacemaker Check QUESTION #4 FULL TEXT: You/Your Family Experience fever (hyperthermia) with Anesthesia Last Oral Intake Last Oral intake: Last Oral Intake NPO since Meds taken in AM with sips of water? Meds patient instructed to take am of surgery Any additional information?: Yes NPO since: 00:00 Meds taken in AM with sips of water?: No PONV PONV - hand welt butter: PONV - hand welt butter Female Yes 08/25/24 14:30 HX of Motion Sickness Yes 08/25/24 14:30 HX of N/V After Surgery Yes 08/25/24 14:30 Non-Smoker Yes 08/25/24 14:30 Duration of Surgery greater Yes 08/25/24 14:30 than 60 minutes Number of Risk Factors 5 08/25/24 14:30 PONV Score Severe Risk 08/25/24 14:30 Height & Weight Height & Weight: Anesthesia: Height & Weight Height 5 ft 3 in 08/12/24 08:28 Respiratory Assessment Respiratory Assessment - hand welt butter: Respiratory Tract Infection Hx - hand welt butter Hx Respiratory Tract Infection No 08/25/24 14:30 STOP Sleep Apnea STOP Sleep Apnea - hand welt butter: STOP Sleep Apnea - hand welt butter Hx Hypertension Yes: on meds 08/25/24 14:30 Hx Sleep Apnea No 08/25/24 14:30 CPAP BIPAP Do you snore loudly (louder No 08/25/24 14:30 than talking or can be heard Do you often feel tired/ No 08/25/24 14:30 fatigued/ sleepy during daytime? Has anyone observed you stop No 08/25/24 14:30 breathing during sleep? STOP Results Negative 08/25/24 14:30 QUESTION #5 FULL TEXT : Do you snore loudly (louder than talking or can be heard through closed doors)? Tobacco Use History Tobacco Use History - hand welt butter: Tobacco Use History - hand welt butter Tobacco Use Smoking Status Never smoker 08/25/24 14:30 Hx Tobacco Use No 08/25/24 14:30 Years Smoking Packs Smoked per Day Smoking Cessation Date was within the last 15 years Hx Smoking Cessation Date Hx Smoking Cessation No 08/25/24 14:30 Counseling Hematologic Medial History Hematologic Hx - hand welt butter: Hematologic Medical Hx - information writer Hx of Blood Transfusion No 08/25/24 14:30 Hx of Transfusion in last 3 No 08/25/24 14:30 Months Date of Last Transfusion (if within last 3 months) Ever experience any problems No 08/25/24 14:30 with transfusion(s)? Specify any problems Hx of Preganancy in last 3 No 08/25/24 14:30 Months Nurse Filling Out Transfusion JZOLLINGE 08/25/24 14:30 & Questions: Date: 08/25/24 08/25/24 14:30 Time: 14:33 08/25/24 14:30 Patient unable to answer at this time (ie. confused, unrespo /Reproduction History /Reproductive History - hand welt butter: /Reproductive Hx- hand welt butter Hx Now No 08/25/24 14:30 Gestational Age (in weeks): EDC: Hx Hx Para Hx Section SAB No 08/25/24 14:30 Active Medications Active Medications: Current Medications Generic Name Dose Route Start Last Admin Trade Name Freq PRN Reason Stop Dose Admin Cefazolin Sodium 2 gm/ Sodium 110 mls @ 150 mls/hr 09/09/24 07:30 Chloride IV 09/09/24 08:13 INTRAOP ONE Lactated Ringer's 1,000 mls @ 15 mls/hr 09/09/24 06:15 [facility] .[facility]H [facility] History (Updated 09/09/24 @ 07:[address] José Miguel Cardona MD) Easy bruising Migraine headache Hypertension Epigastric pain Wears glasses Cancer Arthritis High cholesterol Gastric reflux Non-smoker Implantable loop recorder present History of echocardiogram Cardiology follow-up encounter Fatigue Abnormal mammogram of right breast Blood thinned due to long-term anticoagulant use GERD (gastroesophageal reflux disease) CVA (cerebral vascular accident) Alteration in vision Hypercholesterolemia Home Medications ?Medication ?Instructions ?Recorded ?Last Taken ?Type fluticasone propionate 50 50 mcg intranasal DAILY PRN PRN 01/10/22 09/07/24 History mcg/actuation nasal ALLERGIES spray,suspension (Flonase Allergy Relief) losartan 50 mg tablet 50 mg PO DAILY BP 01/10/22 0 09/08/24 21:30 History metoprolol succinate 100 mg 100 mg PO DAILY BP 2 09/08/24 21:30 History tablet,extended release 24 hr multivitamin 1 tab PO DAILY 07/24/2208/12 12:30 History aspirin 81 mg tablet,delayed 81 mg PO DAILY 09/03/22 0 09/08/24 21:30 History release (Adult Low Dose Aspirin) duloxetine 60 mg capsule,delayed 60 mg PO DAILY 09/08/24 21:30 History release glycopyrrolate 1 mg tablet 1 mg PO TID 09/03/22 21:30 History clopidogrel 75 mg tablet 75 mg PO DAILY #90 tabs 05/1409/02/24 Rx folic acid 1 mg tablet 1 mg PO DAILY #90 tabs 05/2309/08/24 07:30 Rx topiramate 25 mg tablet 25 mg PO BID #180 tabs 05/2309/08/24 21:30 Rx rosuvastatin 20 mg tablet 20 mg PO QHS #90 tabs 09/08/24 21:30 Rx pantoprazole 40 mg tablet,delayed 40 mg PO QDAY 09/08/24 07:30 History release estradiol 0.01% (0.1 mg/gram) 1 appful vaginal .as dir ected PRN 08/25/24 Unknown History vaginal cream vaginal dryness pregabalin 50 mg capsule 50 mg PO BID 08/25/24 12:00 History Allergy/AdvReac Type Severity Reaction Status Date / Time propoxyphene napsylate (From Allergy Mild Nausea/Vom/ Verified 09/09/24 06:37 Darvocet-N) Diarrhea atorvastatin (From Lipitor) Allergy Unknown unknown Verified 09/09/24 06:37 simvastatin (From Zocor) Allergy Unknown unknown Verified 09/09/24 06:37 Sulfa (Sulfonamide Allergy Unknown Headache, Verified 09/09/24 06:37 Antibiotics) nausea Family History Mother Hypertension High cholesterol Grandmother CVA (cerebral vascular accident) Other Alcoholism Cancer Surgical History History of esophagogastroduodenoscopy (EGD) History of cardiac catheterization History of knee replacement procedure of left knee History of left heart catheterization (06/13/14) History of sinus surgery History of squamous cell carcinoma excision History of colonoscopy (~2016) History of right breast biopsy History of back surgery Hx of cataract surgery H/O arthroscopic knee surgery H/O: hysterectomy Social History household members: spouse Smoking Status: Never smoker second hand exposure: No alcohol intake: never substance use type: does not use caffeine: Yes Type: coffee Number of servings: 1 what type of physical activity do you participate in: weight training and other frequency: 5-6 times per week meet/hinduism: Adventism seatbelt use: always Review of Systems (Anesthesia) ROS Narrative System reviewed and no additional complaints, except as documented. 09/09/24 0704 <Electronically signed by José Miguel torres MD> Date _ José Miguel Cardona MD Cosigner Signature: Date CC: ~ Signed [facility] Work Phone: 1(288) 688-221805-30-2025 History and physical note Author Michele Roach [facility] Note Date/Time September 09, 2024 6:54a m [facility] Medical Records Department [address] [place] [address] History & Physical Exam 09/09/24 0652 MR#: [id number] Acct: [id number] Name: ANABELLA SALVADOR Rep #:[id number] : 1950 74 From: Michele Bob PCP: Dr. Stefani Ball MD Status:[facility] Location: [place] [address] History and Physical Date of Admission: 09/09/24 OFFICE VISIT Date of Service: 08/12/24 MR#: [id number] Acct: [id number] Name: ANABELLA SALVADOR Rep #: [id number] : 1950 Provider: Dr. Michele Roach MD Age/Sex: 73/F Location: [facility] Status: Signed Intake Vital Signs 07/04/2510:24 08/04/2509:58 08/13/2507:28 Height 5 ft 3 in 5 ft 3 in 5 ft 3 in Weight: 167 lb 169 lb 2 oz BMI 29.5 29.9 BP 122/64 H 130/72 H Blood Pressure Location Lt brachial Rt brachial Position Sitting Sitting Respiration 15 18 Pulse 60 71 Pulse Source Monitor Monitor Temp 98.6 F 97.3 F L Temp Source Temporal Temporal Pulse Oximetry (%) 99 96 Oxygen Delivery Method room air room air Intake Visit Reasons: DISCUSS LAP LORA Chief Complaint: discuss lap lora Accompanied by: Is patient in pain?: No Allergies atorvastatin (From Lipitor) Allergy (Unknown, Verified 08/12/24 08:29) unknownlisinopril Allergy (Unknown, Verified 08/12/24 08:29) unknownsimvastatin (From Zocor) Allergy (Unknown, Verified 08/12/24 08:29) unknownSulfa (Sulfonamide Antibiotics) Allergy (Unknown, Verified 08/12/24 08:29) Headache, nauseapropoxyphene napsylate (From Darvocet-N) Allergy (Verified 08/12/24 08:29) Unknown Medications ?Medication ?Instructions ?Recorded ?Confirmed ?Type fluticasone propionate 50 50 mcg intranasal DAILY PRN PRN 01/10/22 08/12/24 History mcg/actuation nasal ALLERGIES spray,suspension (Flonase Allergy Relief) losartan 50 mg tablet 50 mg PO DAILY BP 01/10/22 08/12/24 Hist ory metoprolol succinate 100 mg 100 mg PO DAILY BP 01/10/22 08/12/24 His tory tablet,extended release 24 hr multivitamin 1 tab PO DAILY 07/24/22 08/12/24 History aspirin 81 mg tablet,delayed 81 mg PO DAILY 09/03/22 08/12/24 History release (Adult Low Dose Aspirin) duloxetine 60 mg capsule,delayed 60 mg PO DAILY 09/03/22 08/12/24 History release glycopyrrolate 1 mg tablet 1 mg PO TID 09/03/22 08/12/24 History clopidogrel 75 mg tablet 75 mg PO DAILY #90 tabs 05/23/24 5 Rx folic acid 1 mg tablet 1 mg PO DAILY #90 tabs 05/23/24 08/12/24 Rx pregabalin 50 mg capsule 50 mg PO DAILY #90 caps 05/23/24 5 Rx topiramate 25 mg tablet 25 mg PO BID #180 tabs 05/23/24 08/12/24 Rx rosuvastatin 20 mg tablet 20 mg PO QHS #90 tabs 05/24/24 08/12/24 Rx pantoprazole 40 mg tablet,delayed 40 mg PO QDAY 06/20/24 08/12/24 History release Have you fallen in the past year?: No PFSH Medical History Migraine headache Hypertension Epigastric pain Wears glasses Cancer Arthritis High cholesterol Gastric reflux Non-smoker Implantable loop recorder present History of echocardiogram Cardiology follow-up encounter Fatigue Abnormal mammogram of right breast Blood thinned due to long-term anticoagulant use GERD (gastroesophageal reflux disease) CVA (cerebral vascular accident) Alteration in vision Hypercholesterolemia Surgical History History of esophagogastroduodenoscopy (EGD) History of cardiac catheterization History of knee replacement procedure of left knee History of left heart catheterization (06/13/14) History of sinus surgery History of squamous cell carcinoma excision History of colonoscopy (~2017) History of right breast biopsy History of back surgery Hx of cataract surgery H/O arthroscopic knee surgery H/O: hysterectomy Family History Mother Hypertension High cholesterolGrandmother CVA (cerebral vascular accident)Other Alcoholism Cancer Social History household members: spouse Smoking Status: Never smoker second hand exposure: No alcohol intake: never substance use type: does not use caffeine: Yes Type: coffee Number of servings: 1 what type of physical activity do you participate in: weight training and other frequency: 5-6 times per week meet/hinduism: Adventism seatbelt use: always HPI HPI HPI: Patient is a 73-year-old female who makes repeat consultation related to epigastric discomfort and hiatal hernia. She was last seen in the office on 06/20/2024. She presents today with her . Together they confirm that they have met with both neurology and ophthalmology. Both of these specialties agree that patient has had no progression of her neurologic issues and that her experiences represent chronic status. For her part, Mrs. Salvador denies any new visual difficulties. She, however, reports ongoing significant difficulty with reflux. She states that in general she is taking pantoprazole 40 mg once daily but occasionally has to increase this to twice daily. Otherwise she is making frequent use of cimetidine and Tums as well. She also states that she has experienced some choking and wishes to know if this is normal?. Lastly she complains that her mouth is always raw and states she must use kid toothpaste if she finds anything else too stimulating. Her clarifies that she just had a tooth extraction 3 weeks ago and is still dealing with the acute discomfort. Below is recapitulated from patient's prior visit for ease review: Patient is a 73-year-old female who makes repeat consultation related to epigastric discomfort. She was last seen in the office on 05/02/2024 but in the interval since then and now she underwent EGD and colonoscopy with ms on 05/18/2024. She presents today with her to review the results of this workup and some interval manometry and barium swallow testing that was ordered. She initially denies any significant health updates but comments about how she had a particularly rough night last evening from her reflux disease. She concluded that it was related to the consumption of a [place] peppermint milagro. When asked to comment on a recent brain MRI, patient and her clarifies that neurology simply had wanted to see if there are any meaningful changes since patient's post CVA imaging couple of years ago. When I pressed for the indication patient admitted that she has noted some visual changes recently. By this she clarifies that has been over 3 months ago since she first noticed some cloudiness that disappeared but has noted some persistent double vision. She acknowledges that visual changes were the primary difficulty she experiencedwith her initial stroke. She adds that she is due to see her card placer next week but she is eager to also get in with ophthalmology as that is where she herstroke was first identified (she clarifies the as400 consultant was with the [facility]. ROS General General: No weight change, appetite, fatigue, colon cancer, breast cancer or weakness HEENT HEENT: No difficulty swallowing, eye injury, eye surgery, swollen glands or hoarseness Endo Endocrine: No thyroid disease, diabetes mellitus, thyroid cancer, Hair loss, heat intolerance or cold intolerance Skin Skin: No rash or changing moles Breast Breast: No left breast lump, right breast lump, nipple discharge, breast pain, abnormal mammogram, abnormal US or breast enlargement Musc Musculoskeletal: Yes arthritis; No back problems, rheumatoid arthritis, gout or joint pain Cardio Cardiovascular: No murmur, pacemaker, heart disease, atrial fibrillation, high blood pressure, heart attack, heart stent, palpitations, shortness of breath with exertion or chest pain Psych Psychiatric: No depression, anxiety or hearing voices Resp Respiratory: No shortness of breath, No sleep apnea, No cough, No COPD, No asthma, No emphysema and No wheezing Gastro Gastrointestinal: No abdominal pain, No nausea or vomiting, No diarrhea, No constipation, No blood in stool, Yes acid reflux, No hemorrhoids, No ulcers, No gallbladder problem and No black,tarry stools Guillermo Hematologic: No blood thinners, No blood disorders, No bleeding, No anemia and No blood clots Neuro Neurologic: No system reviewed and no additional complaints, except as documented, No as per HPI, No abnormal gait, No abnormal hearing, No abnormal movements, No abnormal speech, No behavioral changes, No burning sensations, No confusion, No convulsions, No disequilibrium, No dizziness, No localized weakness, No frequent falls, No headache(s), No lack of coordination, No loss ofvision, No memory loss, Yes numbness, No other visual disturbances, No radicularpain, No restless legs, No sensory deficit, No syncope, Yes tingling, No tremor(s), No weakness and No other Exam Const General: cooperative, comfortable and no acute distress HENMT Other: No evidence of thrush on brief oral exam inspection Resp Effort & Inspection: normal respiratory effort GI Other: No visible herniation, nondistended, soft, nontender palpation x 4 quadrants Assessment and Plan Assessment and Plan (1) GERD (gastroesophageal reflux disease): Status: Acute Comment: Patient with refractory reflux disease despite now transitioning to pantoprazole. She describes symptoms occurring with a daily frequency. She is additionally using Tums and famotidine. She has identified food triggers, but on apologetic lately states that she still likes these foods and simply tries tominimize their effect by avoiding them closer to bedtime. We had a rather lengthy conversation around reflux disease and pathologic states that lead to them. Specifically, addressed the scenario of a hiatal hernia and used a picture diagrams to facilitate this conversation. Regarding procedure plans, I shared with her the opportunity could be taken to perform a pH probe placement, however, she seems very reluctant to consider any additional surgery and simply is most interested in being screened for Basilio's esophagus. Therefore we willplan for diagnostic EGD alone with biopsy. Patient is on Plavix and will need to have this held for 7 days preprocedure to minimize her bleeding risk with these biopsies. Update 10/20/2023: Patient is a 73-year-old female who remains stable for her symptoms and overall describes relief with PPI medication. She freely confessesthat she continues to engage in habits that provoke her symptoms, but is unwilling to change some of them due to her enjoyment of those things. However,when we discuss possibility of fundoplication I used hand drawings to illustratethe different anatomical states and described potential inability to either belch or vomit. Upon hearing this both patient and her immediately displayed a lack of acceptance with any further proposition of surgical intervention. Patient did ask whether or not she would even have to go through with additional EGD exams. Given that patient has no evidence of Basilio's esophagus and only mild gastritis I advised her that there would be no indication based on present data to repeat the endoscopy. And since she declines further discussion around surgery I will not proceed with any additional workup of her hiatal hernia at this time. I have advised her to simply take pantoprazole 40 mg daily and then supplement with either Tums or famotidine as needed for additional symptoms. Of also encouraged her to take proactive steps with limiting some of her habits that are likely provoking her symptoms. Update 06/21/2023: I reviewed with patient and her the results of her recent manometry testing and barium swallow. Manometry showed normal LES function but slightly increased UES relaxation tone and some fragmented swallows. Barium swallow demonstrated evidence of a small sliding hiatal herniawith gastroesophageal reflux as well as some tertiary contractions. With the fragmented swallows and the tertiary retractions?as well as patient's age and other neurologic concerns I shared my recommendation would be to proceed with a laparoscopic partial fundoplication in addition to hiatal hernia reduction/repair. Relevant anatomy and the rationale for this was reviewed withpatient. However, the majority of our visit actually covered some recent neurologic symptoms that patient is undergoing a workup for to exclude the possibility of further clinically significant neurologic events given her history of CVA. Fortunately, recent brain MRI did not show any new infarcts, but patient has not followed up with neurology since acquisition of the study. Further, she has had no formal evaluation of her vision from either optometry orophthalmology. She is due for an optometry evaluation next week. Given these new symptoms and the incompleteness of the evaluation I frankly shared with patient and her that I was uncomfortable proceeding with a potentially 2to 3-hour general anesthetic where she may be at risk for intermittent hypotension without assurance that she is optimized or safe from a neurologic standpoint. Patient and her expressed appreciation for this consideration and we will plan to follow-up after this evaluation is completed. I will look to discuss further with neurology. Update 08/12/2024: Patient has made outpatient visits with both neurology and ophthalmology who have provided reassurance that she is not experiencing any newneurologic symptoms and requires no further workup. She continues to be plaguedby frequent reflux events despite compliance with scheduled PPI medication and as needed [id number] antacids. Additionally she complains of some choking which I suspect may be related to some esophagitis or simply active aspiration as she reports the taste of acid in her mouth. With the significant symptoms she reports I believe it is now time to proceed with scheduling for laparoscopic hiatal hernia repair with toupee fundoplication. We reviewed the operation in detail as well as the expected postoperative recovery?including dietary restrictions. All questions were answered from patient and her . They are interested in moving forward to soon as possible. We will need to obtain clearance for hold of patient's antiplatelet therapy. Plan: ? Laparoscopic hiatal hernia repair with toupee fundoplication. Hold Plavix x 5days preop. Postoperatively patient advised she will require at least 1 night overnight observation. (2) Hiatal hernia with GERD: Status: Chronic Comment: Patient is 73-year-old female that is severely symptomatic from a hiatal hernia with GERD symptoms despite maximal medical therapy with PPI, H2 ana, and Tums. Admittedly, some of her lifestyle choices precipitate the symptoms but patient states they are a big part of her enjoyment in life and she is unwillingto modify them. This previously represented part of her interest in proceeding with antireflux surgery but when she was advised that she may not be able to vomit or belch normally thereafter our discussion fell off. Patient presents today because of persistent symptoms which she finds intolerable. I did review our older conversations and confirmed that she now felt differently about a possible surgery. Even still during the course of our conversation she raised objections about the time away from activity and I reminded her that she would need to allow herself ample time for recovery to ensure an optimal outcome. Shebegrudgingly agreed and her also tried to provide perspective. Since ithas been 9 months since her last scope and she is reporting some progression of symptoms I have recommended repeat EGD. After she shared that she had a retained hemostatic clip that is disqualifying her from an MRI the need for thisstudy is furthered and I would plan to remove that clip at the time of repeat study. Additionally, I have informed her that we would need to proceed for upper GI with esophagram and esophageal manometry. The need for both of these exams was explained and patient agreed to proceed as recommended. Ultimately, shared my belief that barring any surprises with the studies I believe she wouldbe an excellent candidate for hiatal hernia reduction and partial fundoplication. Plan: Laparoscopic hiatal hernia repair with toupee fundoplication anticipated I have examined the patient and the H&P has been reviewed. There are no clinicalchanges since date of exam. Patient confirms she has held her Plavix since 09/02/2024. She also reports a stable state of health and no interval changes. She does remark that she has slightly bloated today but attributes this to drinking some Sprite yesterday. Her abdominal exam is benign apart from some very mild distention. Several lingering questions were addressed and I reiterated the expectation for postop observational stay and liquid diet. Consents were confirmed. Proceed to the operating room for laparoscopic hiatal hernia repair with toupet fundoplication. 09/09/24 0654 <Electronically signed by Michele Roach MD> Cosigner Signature (if applicable): CC: Dr. Stefani Ball MD; Dr. Michele Roach MD~ Signed [facility] Work Phone: [phone]) 758-281505-30-2025 Consult note [facility] Medical Records Department [address] [place] [address] Pre-Anesthesia Evaluation 09/09/24 0649 MR#: [id number] Acct: [id number] Name: CASEANABELLA Rep #:[id number] : 1950 74 From: José Miguel Cardona MD PCP: Dr. Stefani Ball MD Status:REG SDC Y Race: C Location: [place] [address] José Miguel Cardona MD on 09/09/24 at 0706 Addendum Temperature is 97.8. Heart rate 67. SpO2 is 98%. Respiratory rate is 18. Blood pressure is 134/66. 09/09/24 0706 brian ROSENTHAL> Date _ José Miguel Cardona MD cc: ~* Signed ASA Classification* ASA Classification ASA Classification: 3 Assessment & Plan Anesthesia* Anesthesia Assessment Anesthesia Assessment: Discussed sedation and/or anesthesia options, risks, benefits, and alternatives with patient/parents/legal guardian/POA. Questions invited. The patient/parents/legal guardian/POA seems to understand and agrees to proceedwith anesthesia plan. Reviewed the physical assessment, medical history, allergy history and patient home medications list prior to surgery/procedure/anesthetic and documented any changes. Performed airway and anesthesia risk assessments. Anesthesia Type Anesthesia Type: General (Consider GlideScope intubation.) History Source History Obtained from:: Patient and Chart Anesthesia Focused Assessment* Oxygen Delivery Method: Room Air Airway Assessment Mouth opens: >3 cm Mallampati Score: IV Teeth Condition: Missing (Patient has a bottom right molar that is missing. Everything else is tight.) Neck Range of motion (ROM): Full ROM Focused Labs Anesthesia Preop lab: CBC WBC 9.7 K/mm3 (4.4-11.0) 08/30/24 07:36 08/30/24 RBC 4.03 M/mm3 (4.2-5.4) L 08/30/24 07:36 08/30/24 Hgb 11.7 g/dL (12.0-15.0) L 08/30/24 07:36 5 Hct 36.3 % (37-47) L 08/30/24 07:36 08/30/24 Plt Count 271 K/mm3 (150-450) 08/30/24 07:36 08/30/24 CHEMISTRY Potassium 4.0 mmol/L (3.3-5.1) 08/30/24 07:36 08/30/24 Sodium 142 mmol/L (133-145) 08/30/24 07:36 08/30/24 BUN 13 mg/dL (4-19) 08/30/24 07:36 08/30/24 Creatinine 1.11 mg/dL (0.70-1.20) 08/30/24 07:36 08/30/24 Glucose 111 mg/dL (70-99) H 08/30/24 07:36 08/30/24 TSH 2.820 uIU/mL (0.358-3.740) 03/01/24 08:17 02/11 01/04 COAG PT 13.1 SECONDS (11.7-14.9) 01/10/22 17:00 Pre-Assessment Diagnosis/Proposed Procedure Planned Operative Procedure(s): Laparoscopic, Lora Fundoplication Hital herniarepair with toupet fundolplication Anesthesia History Anesthesia History - hand welt butter: Anesthesia History - hand welt butter Hx Hospitalization No 08/25/24 14:30 Any Problems With Anesthesia PONV. Slow to wake up. 08/25/24 14:30 Cholinesterase deficiency No 08/25/24 14:30 You/Your Family Experience No 08/25/24 14:30 fever (hyperthermia) with Relationship Recent Exposure to Contagious No 05/18/24 11:52 Disease Does patient have nerve No 08/25/24 14:30 stimulator Patient instructed to have device shut off --Does patient have Pacemaker or ICD? When Was Last Pacemaker Check QUESTION #4 FULL TEXT: You/Your Family Experience fever (hyperthermia) with Anesthesia Last Oral Intake Last Oral intake: Last Oral Intake NPO since Meds taken in AM with sips of water? Meds patient instructed to take am of surgery Any additional information?: Yes NPO since: 00:00 Meds taken in AM with sips of water?: No PONV PONV - hand welt butter: PONV - hand welt butter Female Yes 08/25/24 14:30 HX of Motion Sickness Yes 08/25/24 14:30 HX of N/V After Surgery Yes 08/25/24 14:30 Non-Smoker Yes 08/25/24 14:30 Duration of Surgery greater Yes 08/25/24 14:30 than 60 minutes Number of Risk Factors 5 08/25/24 14:30 PONV Score Severe Risk 08/25/24 14:30 Height & Weight Height & Weight: Anesthesia: Height & Weight Height 5 ft 3 in 08/12/24 08:28 Respiratory Assessment Respiratory Assessment - hand welt butter: Respiratory Tract Infection Hx - hand welt butter Hx Respiratory Tract Infection No 08/25/24 14:30 STOP Sleep Apnea STOP Sleep Apnea - hand welt butter: STOP Sleep Apnea - hand welt butter Hx Hypertension Yes: on meds 08/25/24 14:30 Hx Sleep Apnea No 08/25/24 14:30 CPAP BIPAP Do you snore loudly (louder No 08/25/24 14:30 than talking or can be heard Do you often feel tired/ No 08/25/24 14:30 fatigued/ sleepy during daytime? Has anyone observed you stop No 08/25/24 14:30 breathing during sleep? STOP Results Negative 08/25/24 14:30 QUESTION #5 FULL TEXT : Do you snore loudly (louder than talking or can be heard through closeddoors)? Tobacco Use History Tobacco Use History - hand welt butter: Tobacco Use History - hand welt butter Tobacco Use Smoking Status Never smoker 08/25/24 14:30 Hx Tobacco Use No 08/25/24 14:30 Years Smoking Packs Smoked per Day Smoking Cessation Date was within the last 15 years Hx Smoking Cessation Date Hx Smoking Cessation No 08/25/24 14:30 Counseling Hematologic Medial History Hematologic Hx - hand welt butter: Hematologic Medical Hx - information writer Hx of Blood Transfusion No 08/25/24 14:30 Hx of Transfusion in last 3 No 08/25/24 14:30 Months Date of Last Transfusion (if within last 3 months) Ever experience any problems No 08/25/24 14:30 with transfusion(s)? Specify any problems Hx of Preganancy in last 3 No 08/25/24 14:30 Months Nurse Filling Out Transfusion JZOLLINGE 08/25/24 14:30 & Questions: Date: 08/25/24 08/25/24 14:30 Time: 14:33 08/25/24 14:30 Patient unable to answer at this time (ie. confused, unrespo /Reproduction History /Reproductive History - hand welt butter: /Reproductive Hx- hand welt butter Hx Now No 08/25/24 14:30 Gestational Age (in weeks): EDC: Hx Hx Para Hx Section SAB No 08/25/24 14:30 Active Medications Active Medications: Current Medications Generic Name Dose Route Start Last Admin Trade Name Freq PRN Reason Stop Dose Admin Cefazolin Sodium 2 gm/ Sodium 110 mls @ 150 mls/hr 09/09/24 07:30 Chloride IV 09/09/24 08:13 INTRAOP ONE Lactated Ringer's 1,000 mls @ 15 mls/hr 09/09/24 06:15 IV .Q48H ARTHUR PFSH Medical History (Updated 09/09/24 @ 07:[address] José Miguel Cardona MD) Easy bruising Migraine headache Hypertension Epigastric pain Wears glasses Cancer Arthritis High cholesterol Gastric reflux Non-smoker Implantable loop recorder present History of echocardiogram Cardiology follow-up encounter Fatigue Abnormal mammogram of right breast Blood thinned due to long-term anticoagulant use GERD (gastroesophageal reflux disease) CVA (cerebral vascular accident) Alteration in vision Hypercholesterolemia Home Medications ?Medication ?Instructions ?Recorded ?Last Taken ?Type fluticasone propionate 50 50 mcg intranasal DAILY PRN PRN 01/10/22 09/07/24 History mcg/actuation nasal ALLERGIES spray,suspension (Flonase Allergy Relief) losartan 50 mg tablet 50 mg PO DAILY BP 01/10/22 0 09/08/24 21:30 History metoprolol succinate 100 mg 100 mg PO DAILY BP 2 09/08/24 21:30 History tablet,extended release 24 hr multivitamin 1 tab PO DAILY 07/24/2208/12 12:30 History aspirin 81 mg tablet,delayed 81 mg PO DAILY 09/03/22 0 09/08/24 21:30 History release (Adult Low Dose Aspirin) duloxetine 60 mg capsule,delayed 60 mg PO DAILY 09/08/24 21:30 History release glycopyrrolate 1 mg tablet 1 mg PO TID 09/03/22 21:30 History clopidogrel 75 mg tablet 75 mg PO DAILY #90 tabs 05/1409/02/24 Rx folic acid 1 mg tablet 1 mg PO DAILY #90 tabs 05/2309/08/24 07:30 Rx topiramate 25 mg tablet 25 mg PO BID #180 tabs 05/2309/08/24 21:30 Rx rosuvastatin 20 mg tablet 20 mg PO QHS #90 tabs 09/08/24 21:30 Rx pantoprazole 40 mg tablet,delayed 40 mg PO QDAY 09/08/24 07:30 History release estradiol 0.01% (0.1 mg/gram) 1 appful vaginal .as dir ected PRN 08/25/24 Unknown History vaginal cream vaginal dryness pregabalin 50 mg capsule 50 mg PO BID 08/25/24 12:00 History Allergy/AdvReac Type Severity Reaction Status Date / Time propoxyphene napsylate (From Allergy Mild Nausea/Vom/ Verified 09/09/24 06:37 Darvocet-N) Diarrhea atorvastatin (From Lipitor) Allergy Unknown unknown Verified 09/09/24 06:37 simvastatin (From Zocor) Allergy Unknown unknown Verified 09/09/24 06:37 Sulfa (Sulfonamide Allergy Unknown Headache, Verified 09/09/24 06:37 Antibiotics) nausea Family History Mother Hypertension High cholesterol Grandmother CVA (cerebral vascular accident) Other Alcoholism Cancer Surgical History History of esophagogastroduodenoscopy (EGD) History of cardiac catheterization History of knee replacement procedure of left knee History of left heart catheterization (06/13/14) History of sinus surgery History of squamous cell carcinoma excision History of colonoscopy (~2016) History of right breast biopsy History of back surgery Hx of cataract surgery H/O arthroscopic knee surgery H/O: hysterectomy Social History household members: spouse Smoking Status: Never smoker second hand exposure: No alcohol intake: never substance use type: does not use caffeine: Yes Type: coffee Number of servings: 1 what type of physical activity do you participate in: weight training and other frequency: 5-6 times per week meet/hinduism: Adventism seatbelt use: always Review of Systems (Anesthesia) ROS Narrative System reviewed and no additional complaints, except as documented. 09/09/24 0704 brian ROSENTHAL> Date _ José Miguel Cardona MD Cosigner Signature: Date CC: ~ Signed [facility]05-30-2025 History and physical note [facility] Medical Records Department [address] [place] [address] History & Physical Exam 09/09/24 0652 MR#: [id number] Acct: [id number] Name: CASEANABELLA Rep #:[id number] : 1950 74 From: Michele Bob PCP: Dr. Stefani Ball MD Status:[facility] Location: [place] [address] History and Physical Date of Admission: 09/09/24 OFFICE VISIT Date of Service: 08/12/24 MR#: [id number] Acct: [id number] Name: CASEANABELLA Rep #: [id number] : 1950 Provider: Dr. Michele Roach MD Age/Sex: 73/F Location: [facility] Status: Signed Intake Vital Signs 07/04/2510:24 08/04/2509:58 08/13/2507:28 Height 5 ft 3 in 5 ft 3 in 5 ft 3 in Weight: 167 lb 169 lb 2 oz BMI 29.5 29.9 BP 122/64 H 130/72 H Blood Pressure Location Lt brachial Rt brachial Position Sitting Sitting Respiration 15 18 Pulse 60 71 Pulse Source Monitor Monitor Temp 98.6 F 97.3 F L Temp Source Temporal Temporal Pulse Oximetry (%) 99 96 Oxygen Delivery Method room air room air Intake Visit Reasons: DISCUSS LAP LORA Chief Complaint: discuss lap lora Accompanied by: Is patient in pain?: No Allergies atorvastatin (From Lipitor) Allergy (Unknown, Verified 08/12/24 08:29) unknownlisinopril Allergy (Unknown, Verified 08/12/24 08:29) unknownsimvastatin (From Zocor) Allergy (Unknown, Verified 08/12/24 08:29) unknownSulfa (Sulfonamide Antibiotics) Allergy (Unknown, Verified 08/12/24 08:29) Headache, nauseapropoxyphene napsylate (From Darvocet-N) Allergy (Verified 08/12/24 08:29) Unknown Medications ?Medication ?Instructions ?Recorded ?Confirmed ?Type fluticasone propionate 50 50 mcg intranasal DAILY PRN PRN 01/10/22 08/12/24 History mcg/actuation nasal ALLERGIES spray,suspension (Flonase Allergy Relief) losartan 50 mg tablet 50 mg PO DAILY BP 01/10/22 08/12/24 Hist ory metoprolol succinate 100 mg 100 mg PO DAILY BP 01/10/22 08/12/24 His tory tablet,extended release 24 hr multivitamin 1 tab PO DAILY 07/24/22 08/12/24 History aspirin 81 mg tablet,delayed 81 mg PO DAILY 09/03/22 08/12/24 History release (Adult Low Dose Aspirin) duloxetine 60 mg capsule,delayed 60 mg PO DAILY 09/03/22 08/12/24 History release glycopyrrolate 1 mg tablet 1 mg PO TID 09/03/22 08/12/24 History clopidogrel 75 mg tablet 75 mg PO DAILY #90 tabs 05/23/24 5 Rx folic acid 1 mg tablet 1 mg PO DAILY #90 tabs 05/23/24 08/12/24 Rx pregabalin 50 mg capsule 50 mg PO DAILY #90 caps 05/23/24 5 Rx topiramate 25 mg tablet 25 mg PO BID #180 tabs 05/23/24 08/12/24 Rx rosuvastatin 20 mg tablet 20 mg PO QHS #90 tabs 05/24/24 08/12/24 Rx pantoprazole 40 mg tablet,delayed 40 mg PO QDAY 06/20/24 08/12/24 History release Have you fallen in the past year?: No PFSH Medical History Migraine headache Hypertension Epigastric pain Wears glasses Cancer Arthritis High cholesterol Gastric reflux Non-smoker Implantable loop recorder present History of echocardiogram Cardiology follow-up encounter Fatigue Abnormal mammogram of right breast Blood thinned due to long-term anticoagulant use GERD (gastroesophageal reflux disease) CVA (cerebral vascular accident) Alteration in vision Hypercholesterolemia Surgical History History of esophagogastroduodenoscopy (EGD) History of cardiac catheterization History of knee replacement procedure of left knee History of left heart catheterization (06/13/14) History of sinus surgery History of squamous cell carcinoma excision History of colonoscopy (~2017) History of right breast biopsy History of back surgery Hx of cataract surgery H/O arthroscopic knee surgery H/O: hysterectomy Family History Mother Hypertension High cholesterolGrandmother CVA (cerebral vascular accident)Other Alcoholism Cancer Social History household members: spouse Smoking Status: Never smoker second hand exposure: No alcohol intake: never substance use type: does not use caffeine: Yes Type: coffee Number of servings: 1 what type of physical activity do you participate in: weight training and other frequency: 5-6 times per week meet/hinduism: Adventism seatbelt use: always HPI HPI HPI: Patient is a 73-year-old female who makes repeat consultation related to epigastric discomfort and hiatal hernia. She was last seen in the office on 06/20/2024. She presents today with her . Together they confirm that they have met with both neurology and ophthalmology. Both of these specialties agree that patient has had no progression of her neurologic issues and that her experiences represent chronic status. For her part, Mrs. Salvador denies any new visual difficulties. She, however, reports ongoing significant difficulty with reflux. She states that in general she is taking pantoprazole 40 mg once daily but occasionally has to increase this to twice daily. Otherwise she is making frequent use of cimetidine and Tums as well. She also states that she has experienced some choking and wishes to know if this is normal?. Lastly she complains that her mouth is always raw and states she must use kid toothpaste if she finds anything else too stimulating. Her clarifies thatshe just had a tooth extraction 3 weeks ago and is still dealing with the acute discomfort. Below is recapitulated from patient's prior visit for ease review: Patient is a 73-year-old female who makes repeat consultation related to epigastric discomfort. Shewas last seen in the office on 05/02/2024 but in the interval since then and now she underwent EGD and colonoscopy with me on 05/18/2024. She presents today with her to review the results of this workup and some interval manometry and barium swallow testing that was ordered. She initially denies any significant health updates but comments about how she had a particularly rough night last evening from her reflux disease. She concluded that it was related to the consumption of a [place] peppermint milagro. When asked to comment on a recent brain MRI, patient and her clarifies that neurology simply had wanted to see if there are any meaningful changes since patient's post CVA imagingcouple of years ago. When I pressed for the indication patient admitted that she has noted some visual changes recently. By this she clarifies that has been over 3 months ago since she first noticed some cloudiness that disappeared but has noted some persistent double vision. She acknowledges that visual changes were the primary difficulty she experiencedwith her initial stroke. She adds thatpamela is due to see her card placer next week but she is eager to also get in with ophthalmology as that is where she herstroke was first identified (she clarifies the as400 consultant was with the [facility]. ROS General General: No weight change, appetite, fatigue, colon cancer, breast cancer or weakness HEENT HEENT: No difficulty swallowing, eye injury, eye surgery, swollen glands or hoarseness Endo Endocrine: No thyroid disease, diabetes mellitus, thyroid cancer, Hair loss, heat intolerance or cold intolerance Skin Skin: No rash or changing moles Breast Breast: No left breast lump, right breast lump, nipple discharge, breast pain, abnormal mammogram, abnormal US or breast enlargement Musc Musculoskeletal: Yes arthritis; No back problems, rheumatoid arthritis, gout or joint pain Cardio Cardiovascular: No murmur, pacemaker, heart disease, atrial fibrillation, high blood pressure, heart attack, heart stent, palpitations, shortness of breath with exertion or chest pain Psych Psychiatric: No depression, anxiety or hearing voices Resp Respiratory: No shortness of breath, No sleep apnea, No cough, No COPD, No asthma, No emphysema andNo wheezing Gastro Gastrointestinal: No abdominal pain, No nausea or vomiting, No diarrhea, No constipation, No blood in stool, Yes acid reflux, No hemorrhoids, No ulcers, No gallbladder problem and No black,tarry stools Guillermo Hematologic: No blood thinners, No blood disorders, No bleeding, No anemia and No blood clots Neuro Neurologic: No system reviewed and no additional complaints, except as documented, No as per HPI, No abnormal gait, No abnormal hearing, No abnormal movements, No abnormal speech, No behavioral changes, No burning sensations, No confusion, No convulsions, No disequilibrium, No dizziness, No localized weakness, No frequent falls, No headache(s), No lack of coordination, No loss ofvision, No memoryloss, Yes numbness, No other visual disturbances, No radicularpain, No restless legs, No sensory deficit, No syncope, Yes tingling, No tremor(s), No weakness and No other Exam Const General: cooperative, comfortable and no acute distress HENMT Other: No evidence of thrush on brief oral exam inspection Resp Effort & Inspection: normal respiratory effort GI Other: No visible herniation, nondistended, soft, nontender palpation x 4 quadrants Assessment and Plan Assessment and Plan (1) GERD (gastroesophageal reflux disease): Status: Acute Comment: Patient with refractory reflux disease despite now transitioning to pantoprazole. She describes symptoms occurring with a daily frequency. She is additionally using Tums and famotidine. She has identified food triggers, but on apologetic lately states that she still likes these foods and simply tries tominimize their effect by avoiding them closer to bedtime. We had a rather lengthy conversation around reflux disease and pathologic states that lead to them. Specifically, addressed the scenario of a hiatal hernia and used a picture diagrams to facilitate this conversation. Regarding procedure plans, I shared with her the opportunity could be taken to perform a pH probe placement, however, she seems very reluctant to consider any additional surgery and simply is most interested in being screened for Basilio's esophagus. Therefore we willplan for diagnostic EGD alone with biopsy. Patient is on Plavix and will need to have this held for 7 days preprocedure to minimize her bleeding risk wit h these biopsies. Update 10/20/2023: Patient is a 73-year-old female who remains stable for her symptoms and overall describes relief with PPI medication. She freely confessesthat she continues to engage in habits that provoke her symptoms, but is unwilling to change some of them due to her enjoyment of those things. H owever,when we discuss possibility of fundoplication I used hand drawings to illustratethe different anatomical states and described potential inability to either belch or vomit. Upon hearing this both patient and her immediately displayed a lack of acceptance with any further proposition of surgical intervention. Patient did ask whether or not she would even have to go through with additional EGD exams. Given that patient has no evidence of Basilio's esophagus and only mild gastritis Iadvised her that there would be no indication based on present data to repeat the endoscopy. And since she declines further discussion around surgery I will not proceed with any additional workup of her hiatal hernia at this time. I have advised her to simply take pantoprazole 40 mg daily and then supplement with either Tums or famotidine as needed for additional symptoms. Of also encouraged her to take proactive steps with limiting some of her habits that are likely provoking her symptoms. Update 06/21/2023: I reviewed with patient and her the results of her recent manometry testing and barium swallow. Manometry showed normal LES function but slightly increased UES relaxation tone and some fragmented swallows. Barium swallow demonstrated evidence of a small sliding hiatal herni awith gastroesophageal reflux as well as some tertiary contractions. With the fragmented swallowsand the tertiary retractions?as well as patient's age and other neurologic concerns I shared my recommendation would be to proceed with a laparoscopic partial fundoplication in addition to hiatal hernia reduction/repair. Relevant anatomy and the rationale for this was reviewed withpatient. However,the majority of our visit actually covered some recent neurologic symptoms that patient is undergoing a workup for to exclude the possibility of further clinically significant neurologic events givenher history of CVA. Fortunately, recent brain MRI did not show any new infarcts, but patient has not followed up with neurology since acquisition of the study. Further, she has had no formal evaluation of her vision from either optometry orophthalmology. She is due for an optometry evaluation next week. Given these new symptoms and the incompleteness of the evaluation I frankly shared with patient and her that I was uncomfortable proceeding with a potentially 2to 3-hour general anesthetic where she may be at risk for intermittent hypotension without assurance that she is optimized or safe from a neurologic standpoint. Patient and her expressed appreciation for this considerat ion and we will plan to follow-up after this evaluation is completed. I will look to discuss further with neurology. Update 08/12/2024: Patient has made outpatient visits with both neurology and ophthalmology who have provided reassurance that she is not experiencing any newneurologic symptoms and requires no furtherworkup. She continues to be plaguedby frequent reflux events despite compliance with scheduled PPI m edication and as needed [id number] antacids. Additionally she complains of some choking which I suspect may be related to some esophagitis or simply active aspiration as she reports the tasteof acid in her mouth. With the significant symptoms she reports I believe it is now time to proceedwith scheduling for laparoscopic hiatal hernia repair with toupee fundoplication. We reviewed the operation in detail as well as the expected postoperative recovery?including dietary restrictions. All questions were answered from patient and her . They are interested in moving forward to soon as possible. We will need to obtain clearance for hold of patient's antiplatelet therapy. Plan: ? Laparoscopic hiatal hernia repair with toupee fundoplication. Hold Plavix x 5days preop. Postoperatively patient advised she will require at least 1 night overnight observation. (2) Hiatal hernia with GERD: Status: Chronic Comment: Patient is 73-year-old female that is severely symptomatic from a hiatal hernia with GERD symptoms despite maximal medical therapy with PPI, H2 ana, and Tums. Admittedly, some of her lifestyle choices precipitate the symptoms but patient states they are a big part of her enjoyment in life and she is unwillingto modify them. This previously represented part of her interest in proceeding with antireflux surgery but when she was advised that she may not be able to vomit or belch normally thereafter our discussion fell off. Patient presents today because of persistent symptoms which she findsintolerable. I did review our older conversations and confirmed that she now felt differently about a possible surgery. Even still during the course of our conversation she raised objections about the time away from activity and I reminded her that she would need to allow herself ample time for recovery to ensure an optimal outcome. Shebegrudgingly agreed and her also tried to provide perspective. Since ithas been 9 months since her last scope and she is reporting some progression of symptoms I have recommended repeat EGD. After she shared that she had a retained hemostatic clip that is disqualifying her from an MRI the need for thisstudy is furthered and I would plan to remove thatclip at the time of repeat study. Additionally, I have informed her that we would need to proceed for upper GI with esophagram and esophageal manometry. The need for both of these exams was explainedand patient agreed to proceed as recommended. Ultimately, shared my belief that barring any surprises with the studies I believe she wouldbe an excellent candidate for hiatal hernia reduction and partial fundoplication. Plan: Laparoscopic hiatal hernia repair with toupee fundoplication anticipated I have examined the patient and the H&P has been reviewed. There are no clinicalchanges since date of exam. Patient confirms she has held her Plavix since 09/02/2024. She also reports a stable state of health and no interval changes. She does remark that she has slightly bloated today but attributes this to drinking some Sprite yesterday. Her abdominal exam is benign apart from some very mild distention. Several lingering questions were addressed and I reiterated the expectation for postop observational stay and liquid diet. Consents were confirmed. Proceed to the operating room for laparoscopic hiatal hernia repair with toupet fundoplication. 09/09/24 0654 Cosigner Signature (if applicable): CC: Dr. Stefani Ball MD; Dr. Michele Roach MD~ Signed [facility]05-30-2025 [facility] Medical Records Department [address] [place] [address] History Physical Exam 09/09/24 0652 MR#: [id number] Acct: [id number] Name: ANABELLA SALVADOR Rep #: [id number] : 1950 74 From: Michele Roach MD PCP: Dr. Stefani Ball MD Status:[facility] Location: [place] [address] History and Physical Date of Admission: 09/09/24 OFFICE VISIT Date of Service: 08/12/24 MR#: [id number] Acct: [id number] Name: ANABELLA SALVADOR Rep #: [id number] : 1950 Provider: Dr. Michele Roach MD Age/Sex: 73/F Location: [facility] Status: Signed Intake Vital Signs 07/04/2510:24 08/04/2509:58 08/13/2507:28 Height 5 ft 3 in 5 ft 3 in 5 ft 3 in Weight: 167 lb 169 lb 2 oz BMI 29.5 29.9 BP 122/64 H 130/72 H Blood Pressure Location Lt brachial Rt brachial Position Sitting Sitting Respiration 15 18 Pulse 60 71 Pulse Source Monitor Monitor Temp 98.6 F 97.3 F L Temp Source Temporal Temporal Pulse Oximetry (%) 99 96 Oxygen Delivery Method room air room air Intake Visit Reasons: DISCUSS LAP LORA Chief Complaint: discuss lap lora Accompanied by: Is patient in pain?: No Allergies atorvastatin (From Lipitor) Allergy (Unknown, Verified 08/12/24 08:29) unknownlisinopril Allergy (Unknown, Verified 08/12/24 08:29) unknownsimvastatin (From Zocor) Allergy (Unknown, Verified 08/12/24 08:29) unknownSulfa (Sulfonamide Antibiotics) Allergy (Unknown, Verified 08/12/24 08:29) Headache, nauseapropoxyphene napsylate (From Darvocet-N) Allergy (Verified 08/12/24 08:29) Unknown Medications ???Medication ???Instructions ???Recorded ???Confirmed ???Type fluticasone propionate 50 50 mcg intranasal DAILY PRN PRN 01/10/22 08/12/24 History mcg/actuation nasal ALLERGIES spray,suspension (Flonase Allergy Relief) losartan 50 mg tablet 50 mg PO DAILY BP 01/10/22 08/12/24 History metoprolol succinate 100 mg 100 mg PO DAILY BP 01/10/22 08/12/24 History tablet,extended release 24 hr multivitamin 1 tab PO DAILY 07/24/22 08/12/24 History aspirin 81 mg tablet,delayed 81 mg PO DAILY 09/03/22 08/12/24 History release (Adult Low Dose Aspirin) duloxetine 60 mg capsule,delayed 60 mg PO DAILY 09/03/22 08/12/24 History release glycopyrrolate 1 mg tablet 1 mg PO TID 09/03/22 08/12/24 History clopidogrel 75 mg tablet 75 mg PO DAILY #90 tabs 05/23/24 08/12/24 Rx folic acid 1 mg tablet 1 mg PO DAILY #90 tabs 05/23/24 08/12/24 Rx pregabalin 50 mg capsule 50 mg PO DAILY #90 caps 05/23/24 08/12/24 Rx topiramate 25 mg tablet 25 mg PO BID #180 tabs 05/23/24 08/12/24 Rx rosuvastatin 20 mg tablet 20 mg PO QHS #90 tabs 05/24/24 08/12/24 Rx pantoprazole 40 mg tablet,delayed 40 mg PO QDAY 06/20/24 08/12/24 History release Have you fallen in the past year?: No PFSH Medical History Migraine headache Hypertension Epigastric pain Wears glasses Cancer Arthritis High cholesterol Gastric reflux Non-smoker Implantable loop recorder present History of echocardiogram Cardiology follow-up encounter Fatigue Abnormal mammogram of right breast Blood thinned due to long-term anticoagulant use GERD (gastroesophageal reflux disease) CVA (cerebral vascular accident) Alteration in vision Hypercholesterolemia Surgical History History of esophagogastroduodenoscopy (EGD) History of cardiac catheterization History of knee replacement procedure of left knee History of left heart catheterization (06/13/14) History of sinus surgery History of squamous cell carcinoma excision History of colonoscopy ( 2016) History of right breast biopsy History of back surgery Hx of cataract surgery H/O arthroscopic knee surgery H/O: hysterectomy Family History Mother Hypertension High cholesterolGrandmother CVA (cerebral vascular accident)Other Alcoholism Cancer Social History household members: spouse Smoking Status: Never smoker second hand exposure: No alcohol intake: never substance use type: does not use caffeine: Yes Type: coffee Number of servings: 1 what type of physical activity do you participate in: weight training and other frequency: 5-6 times per week meet/hinduism: Adventism seatbelt use: always HPI HPI HPI: Patient is a 73-year-old female who makes repeat consultation related to epigastric discomfort and hiatal hernia. She was last seen in the office on 06/20/2024. She presents today with her . (more content not included)...[facility] 08-04-2024 Evaluation note* Diagnosis Onset Date Resolution Status Admit Date Fatigue acute August 04 10:48am GERD (gastroesophageal reflu x disease) acute August 12, 2024 8: 20am Hiatal hernia with GERD chronic M ay 2024 8:20am Fatigue acute September 06, 2024 11:23am History of laparoscopy acute 2024 9:17am CVA (cerebral vascular accident) res olved October 04, 2024 8:55am Patent foramen ovale inactive October 04, 2024 8:55am Fatigue acute October 13, 2024 9:58am Fatigue acute October 27 10:36am Obesity acute October 27 10:36am Hyperlipidemia chronic October 27, 2024 10:36am Polyneuropathy chronic October 27, 2024 10:36am CVA (cerebral vascular accident) res olved October 27, 2024 10:36am [facility] Work Phone: 1(384) 443-244803-24-2025 Evaluation note* Diagnosis Onset Date Resolution Status Admit Date Fatigue acute July 04 10:50am Fatigue acute August 04 10:48am GERD (gastroesophageal reflu x disease) acute August 12, 2024 8: 20am Hiatal hernia with GERD chronic M ay 2024 8:20am Fatigue acute September 06, 2024 11:23am History of laparoscopy acute Ju ne 2024 9:17am CVA (cerebral vascular accident) resolved October 04, 2024 8:55am Patent foramen ovale inactive October 04, 2024 8:55am Fatigue acute October 13, 2024 9:58am [facility] Work Phone: 1(782) 964-932303-10-2025 Evaluation note* Diagnosis Onset Date Resolution Status Admit Date Epigastric pain acute June 8:52am GERD (gastroesophageal reflu x disease) acute June 20, 2024 8:52am Hiatal hernia with GERD chronic M arch 2024 8:52am Fatigue acute July 04 10:50am Fatigue acute August 04 10:48am GERD (gastroesophageal reflu x disease) acute August 12, 2024 8: 20am Hiatal hernia with GERD chronic M ay 2024 8:20am Fatigue acute September 06, 2024 11:23am History of laparoscopy acute 2024 9:17am CVA (cerebral vascular accident) resolved October 04, 2024 8:55am Patent foramen ovale inactive October 04, 2024 8:55am [facility] Work Phone: 1(871) 615-105502-20-2025 Evaluation note* Diagnosis Onset Date Resolution Status Admit Date Fatigue acute June 02, 2024 8:43am Epigastric pain acute June 8:52am GERD (gastroesophageal reflu x disease) acute June 20, 2024 8:52am Hiatal hernia with GERD chronic M arch 2024 8:52am Fatigue acute July 04 10:50am Fatigue acute August 04 10:48am GERD (gastroesophageal reflu x disease) acute August 12, 2024 8: 20am Hiatal hernia with GERD chronic M ay 2024 8:20am Fatigue acute September 06, 2024 11:23am History of laparoscopy acute 2024 9:17am [facility] Work Phone: 1(283) 426-878102-10-2025 Evaluation note* Diagnosis Onset Date Resolution Status Admit Date Fatigue acute May 23, 2024 10:26am Obesity acute May 23, 2024 10:26am Hyperlipidemia chronic May 142024 10:26am Polyneuropathy chronic May 142024 10:26am CVA (cerebral vascular accident) resolved May 23 10:26am Fatigue acute June 02, 2024 8:43am Epigastric pain acute June 8:52am GERD (gastroesophageal reflu x disease) acute June 20, 2024 8:52am Hiatal hernia with GERD chronic M 2024 8:52am Fatigue acute July 04 10:50am Fatigue acute August 04 10:48am GERD (gastroesophageal reflu x disease) acute August 12, 2024 8: 20am Hiatal hernia with GERD chronic M ay 2024 8:20am [facility] Work Phone: 1(496) 638-318302-10-2025 Evaluation note* Diagnosis Onset Date Resolution Status Admit Date Fatigue acute May 23, 2024 10:26am Obesity acute May 23, 2024 10:26am Hyperlipidemia chronic May 142024 10:26am Polyneuropathy chronic May 142024 10:26am CVA (cerebral vascular accident) resolved May 23 10:26am Fatigue acute June 02, 2024 8:43am Epigastric pain acute June 8:52am GERD (gastroesophageal reflu x disease) acute June 20, 2024 8:52am Hiatal hernia with GERD chronic M arch 2024 8:52am Fatigue acute July 04 10:50am Fatigue acute August 04 10:48am GERD (gastroesophageal reflu x disease) acute August 12, 2024 8: 20am Hiatal hernia with GERD chronic M ay 2024 8:20am Fatigue acute September 06, 2024 11:23am [facility] Work Phone: 1(372) 792-275902-05-2025 [facility] Medical Records Department [address] [place] [address] History Physical Exam 05/18/24 1200 MR#: [id number] Acct: [id number] Name: ANABELLA SALVADOR Rep #: [id number] : 1950 73 From: Michele Roach MD PCP: Dr. Stefani Ball MD Status:[facility] Location: [place] [address] History and Physical MR#: [id number] Acct: [id number] Name: ANABELLA SALVADOR Rep #: [id number] : 1950 Provider: Dr. Michele Roach MD Age/Sex: 73/F Location: [facility] Status: Signed Intake Vital Signs 03/15/2413:14 04/28/2509:09 05/02/2507:25 Height 5 ft 3 in 5 ft 3 in 5 ft 3 in Weight: 175 lb BMI 30.9 BP 127/73 H Blood Pressure Location Rt brachial Position Sitting Respiration 18 Pulse 81 Pulse Source Monitor Temp 97.2 F L Temp Source Temporal Pulse Oximetry (%) 92 Intake Visit Reasons: discuss surgery Chief Complaint: discuss surgery Is patient in pain?: No Allergies atorvastatin (From Lipitor) Allergy (Unknown, Verified 05/02/24 08:26) unknownlisinopril Allergy (Unknown, Verified 05/02/24 08:26) unknownsimvastatin (From Zocor) Allergy (Unknown, Verified 05/02/24 08:26) unknownSulfa (Sulfonamide Antibiotics) Allergy (Unknown, Verified 05/02/24 08:26) Headache, nauseapropoxyphene napsylate (From Darvocet-N) Allergy (Verified 05/02/24 08:26) Unknown Medications ???Medication ???Instructions ???Recorded ???Confirmed ???Type fluticasone propionate 50 50 mcg intranasal DAILY PRN PRN 01/10/22 05/02/24 History mcg/actuation nasal ALLERGIES spray,suspension (Flonase Allergy Relief) losartan 50 mg tablet 50 mg PO DAILY BP 01/10/22 05/02/24 History metoprolol succinate 100 mg 100 mg PO DAILY BP 01/10/22 05/02/24 History tablet,extended release 24 hr multivitamin 1 tab PO DAILY 07/24/22 05/02/24 History aspirin 81 mg tablet,delayed 81 mg PO DAILY 09/03/22 05/02/24 History release (Adult Low Dose Aspirin) duloxetine 60 mg capsule,delayed 60 mg PO DAILY 09/03/22 05/02/24 History release glycopyrrolate 1 mg tablet 1 mg PO TID 09/03/22 05/02/24 History rosuvastatin 20 mg tablet 20 mg PO DAILY #90 tabs 12/25/23 05/02/24 Rx clopidogrel 75 mg tablet 75 mg PO DAILY #90 tabs 03/01/24 05/02/24 Rx folic acid 1 mg tablet 1 mg PO DAILY #90 tabs 03/01/24 05/02/24 Rx pregabalin 50 mg capsule 50 mg PO DAILY #90 caps 03/01/24 05/02/24 Rx topiramate 25 mg tablet 25 mg PO BID #180 tabs 03/01/24 05/02/24 Rx Have you fallen in the past year?: No PFSH Medical History Epigastric pain Wears glasses Cancer Bruising Arthritis High cholesterol Gastric reflux Non-smoker Implantable loop recorder present History of echocardiogram Cardiology follow-up encounter Fatigue Abnormal mammogram of right breast Blood thinned due to long-term anticoagulant use GERD (gastroesophageal reflux disease) CVA (cerebral vascular accident) Alteration in vision Hypercholesterolemia Surgical History History of cardiac catheterization History of knee replacement procedure of left knee History of left heart catheterization (06/13/14) History of sinus surgery History of squamous cell carcinoma excision History of colonoscopy ( 2017) History of right breast biopsy History of back surgery Hx of cataract surgery H/O arthroscopic knee surgery H/O: hysterectomy Family History Mother Hypertension High cholesterolGrandmother CVA (cerebral vascular accident)Other Alcoholism Cancer Social History household members: spouse Smoking Status: Never smoker second hand exposure: No alcohol intake: never substance use type: does not use caffeine: Yes Type: coffee Number of servings: 1 what type of physical activity do you participate in: weight training and other frequency: 5-6 times per week meet/hinduism: Adventism seatbelt use: always HPI HPI HPI: Patient is a 73-year-old female who makes repeat consultation related to epigastric discomfort. She is known to me for a history of hiatal hernia that was diagnosed in conjunction with symptoms of heartburn and acid reflux symptoms. Her last visit was October 2023. She presents today with her . She states flatly that she can eat anything without using lots of Tums. She reports that she uses at least a handful just to go to bed at night and that everything hurts me???referencing any food intake. She confesses that she did not think that she would be coming back b (more contentnot included)...[facility]12-27-2024 Radiology Diagnostic study note [facility] Imaging Services [address] [place] [address] Chest 1 View MR#: [id number] Acct: [id number] Name: CASE,ANABELLA HILARIO Rep #: [id number] : 1950 F 73 From: Chris Mendez MD PCP: Dr. Stefani Ball MD Status: PRE CLI Study:Chest 1 View Date of Exam: 4 Exam# [id number] Ordering Dr: Shiva Perkins MD INDICATION: LOOP RECORDER PLACEMENT CLEARANCE-SUPINE -- SUPINE ONLY EXAMINATION/TECHNIQUE: X-RAY - XR Chest 1 View COMPARISON: 01/10/2022 FINDINGS: LIFE-SUPPORT AND LINES: 1. Cardiac loop monitor has been place the interval, projecting at the level of the LEFT anterior 3rd rib. 2. Additional radiopaque foreign body projecting in the upper abdomen at the level of the GE junction. This is of uncertain etiology. HEART AND VESSELS: The cardiac silhouette, pulmonary vasculature have normal appearance. No evidence of congestive failure. LUNGS AND PLEURAL SPACES: Lungs are clear. No focal infiltrate, consolidation or effusions. No evidence of pneumothorax. Patchy area of density at the RIGHT CP angle with negligible change.. MEDIASTINUM AND HILAR REGIONS: No masses adenopathy noted. No areas of calcification. Visualized upper airway is normal in position. BONY ELEMENTS: No acute bony changes noted. RAD/Chest 1 View IMPRESSION: 1. Cardiac loop monitor placed in the interval projecting at the level of the LEFT anterior 3rd rib.. 2. Linear foreign body projecting in the LEFT upper quadrant, of uncertain etiology. 3. No evidence of acute cardiopulmonary process. 4. Stable appearance of a nodular density at the RIGHT base. Electronically Signed: Dhaval Mendez MD at 17:00 EST , CC: Dr. Stefani Ball MD; Dr. Shiva Perkins MD ~ Pork Cutlet Maker: Signed [facility] Work Phone: 1(257) 373-238512-27-2024 Radiology Diagnostic study note [facility] Imaging Services [address] [place] [address] Abdomen Single View MR#: [id number] Acct: [id number] Name: CASEANABELLA Rep #: [id number] : 1950 F 73 From: Chris Mendez MD PCP: Dr. Stefani Ball MD Status: PRE CLI Study:Abdomen Single View Date of Exam: 04/08/24 Exam# [id number] Ordering Dr: Shiva Perkins MD INDICATION: MRI clearance for foreign body -- resolution clip and Lynn PH capsule have been excreted EXAMINATION/TECHNIQUE: X-RAY - XR Abdomen 1 View COMPARISON: None FINDINGS: Foreign body: 1. There is a foreign body projecting LEFT upper quadrant in the region of the GE junction measuring approximately 2.3 cm of uncertain etiology. This may represent a clip however does not have acoustic appearance of a Resolution Clip]. BOWEL GAS PATTERN: Non-obstructive. No bowel or stomach distention. FREE AIR: Not assessed on a single supine view. ORGANOMEGALY: Not seen. CALCIFICATIONS: No abnormal calcifications observed. LOWER CHEST: No acute pathology. BONES AND SOFT TISSUES: No acute pathology. RAD/Abdomen Single View IMPRESSION: 1. Radiopaque foreign body projecting within the LEFT upper quadrant in the region of the GE junction, measuring approximately 2.3 cm in length. This is of uncertain etiology, however may represent a cleft. The configuration however it is not characteristic of a Resolution Clip. 2. Identification and verification of this foreign body is warranted. Electronically Signed: Dhaval Mendez MD at 16:56 EST , CC: Dr. Stefani Ball MD; Dr. Shiva Perkins MD ~ Pork Cutlet Maker: Signed [facility] Work Phone: 1(981) 774-143111-14-2024 Evaluation note* Diagnosis Onset Date Resolution Status Admit Date Fatigue acute February 25, 2024 10:51am Hyperlipidemia chronic February 112023 10:51am Polyneuropathy chronic February 112023 10:51am CVA (cerebral vascular accident) resolved February 24, 2 024 10:51am Fatigue acute March 15, 2024 12:49pm Fatigue acute April 28, 2024 9:59am Epigastric pain acute April 142024 8:15am Family history of colon canc er in mother acute May 02 8:15am GERD (gastroesophageal reflu x disease) acute May 02 8:15am Hematochezia acute April 8:15am Constipation chronic April 8:15am Hiatal hernia with GERD chronic J anuary 2024 8:15am Personal history of colonic polyps chronic May 02 8:15am Fatigue acute May 23, 2024 10:26am Obesity acute May 23, 2024 10:26am Hyperlipidemia chronic May 142024 10:26am Polyneuropathy chronic May 142024 10:26am CVA (cerebral vascular accident) resolved May 23 10:26am Fatigue acute June 02, 2024 8:43am Epigastric pain acute June 8:52am GERD (gastroesophageal reflu x disease) acute June 20, 2024 8:52am Hiatal hernia with GERD chronic M 2024 8:52am [facility] Work Phone: 1(489) 676-447504-25-2024 History and physical note Author Michele Roach [facility] August 06, 2023 7:24am Note Date/Time August 06, 2023 7:2 4am [facility] Medical Records Department [address] [place] [address] History & Physical Exam 08/06/23 0722 MR#: [id number] Acct: [id number] Name: ANABELLA SALVADOR Rep #:[id number] : 1950 72 From: Michele Bob PCP: Dr. Stefani Ball MD Status:[facility] Location: [place] [address] History and Physical Date of Admission: 08/06/23 OFFICE VISIT Date of Service: 07/09/23 MR#: [id number] Acct: [id number] Name: ANABELLA SALVADOR Rep #: [id number] : 1950 Provider: Dr. Michele Roach MD Age/Sex: 72/F Location: [facility] Status: Signed Intake Vital Signs 06/21/2409:17 07/08/2412:49 Height 5 ft 3 in Weight: 170 lb 3 oz BMI 30.1 BP 124/70 H 125/73 H Blood Pressure Location Lt brachial Rt brachial Position Sitting Sitting Respiration 17 17 Pulse 105 H 91 Pulse Source Monitor Monitor Temp 98.2 F Temp Source Temporal Pulse Oximetry (%) 99 Oxygen Delivery Method room air Intake Visit Reasons: Discuss EGD Chief Complaint: EGD consult Is patient in pain?: No Allergies atorvastatin [From Lipitor] Allergy (Unknown, Verified 07/09/23 13:50) unknownlisinopril Allergy (Unknown, Verified 07/09/23 13:50) unknownrosuvastatin [From Crestor] Allergy (Unknown, Verified 07/09/23 13:50) unknownsimvastatin [From Zocor] Allergy (Unknown, Verified 07/09/23 13:50) [id number] Reductase Inhibitor Allergy (Unknown, Verified 07/09/23 13:50) IntolerantSulfa (Sulfonamide Antibiotics) Allergy (Unknown, Verified 07/09/23 13:50) Headache, nauseapropoxyphene napsylate [From Darvocet-N] Allergy (Verified 07/09/23 13:50) Unknown Medications fluticasone propionate 50 mcg/actuation nasal spray,suspension (Flonase Allergy Relief) 50 mcg intranasal DAILY PRN PRN ALLERGIES 01/10/22 [History Confirmed 07/09/23] losartan 50 mg tablet 50 mg PO DAILY BP 01/10/22 [History Confirmed 07/09/23] metoprolol succinate 100 mg tablet,extended release 24 hr 100 mg PO DAILY BP 01/10/22 [History Confirmed 07/09/23] pregabalin 75 mg capsule 75 mg PO BID PAIN 04/22/22 [History Confirmed 07/09/23] multivitamin 1 tab PO DAILY 07/24/22 [History Confirmed 07/09/23] aspirin 81 mg tablet,delayed release (Adult Low Dose Aspirin) 81 mg PO DAILY 09/03/22 [History Confirmed 07/09/23] duloxetine 60 mg capsule,delayed release 60 mg PO DAILY 09/03/22 [History Confirmed 07/09/23] glycopyrrolate 1 mg tablet 1 mg PO TID 09/03/22 [History Confirmed 07/09/23] rosuvastatin 20 mg tablet 20 mg PO DAILY #90 tabs 11/07/22 [Rx Confirmed 07/09/23] clopidogrel 75 mg tablet 75 mg PO DAILY #90 tabs 03/12/23 [Rx Confirmed 07/09/23] folic acid 1 mg tablet 1 mg PO DAILY #90 tabs 03/12/23 [Rx Confirmed 07/09/23] pantoprazole 40 mg tablet,delayed release 40 mg PO DAILY #90 tabs 03/20/23 [Rx Confirmed 07/09/23] PFSH Medical History Abnormal mammogram of right breast Alteration in vision Blood thinned due to long-term anticoagulant use CVA (cerebral vascular accident) Fatigue GERD (gastroesophageal reflux disease) Hypercholesterolemia Surgical History H/O arthroscopic knee surgery H/O: hysterectomy History of back surgery History of colonoscopy (~2017) History of left heart catheterization (06/13/14) History of right breast biopsy History of sinus surgery History of squamous cell carcinoma excision Hx of cataract surgery Family History Mother Hypertension High cholesterolGrandmother CVA (cerebral vascular accident)Other Alcoholism Cancer Social History household members: spouse Smoking Status: Never smoker second hand exposure: No alcohol intake: never substance use type: does not use caffeine: Yes Type: coffee Number of servings: 1 what type of physical activity do you participate in: weight training and other frequency: 5-6 times per week meet/hinduism: Adventism seatbelt use: always HPI HPI HPI: Patient is a 72-year-old female is known to me for a history of thyroid nodules but presents today for consideration of EGD for history of reflux. Her last visit was 01/29/2023. She presents today with her . They relate that she underwent a knee replacement this winter and is getting around better but otherwise denies any new health changes. Mrs. Salvador reports that she has reflux every day and night. It has become so frequent that she states with just about anything she can expect it. She no specific triggers to be coffee marinara sauce, hot peppers, and hot pickles. She states that she still eats these things because she enjoys them but does tryto minimize their intake prior to bedtime. She estimates that she finishes any eating by 8:30 PM and then retires to bed between 11 PM and midnight. She confirms that she is taking the prescribed pantoprazole each morning and also istaking Tums and famotidine as needed. She shares that this is something that she takes every day. When asked about how bothersome the symptoms are to her, Mrs. Salvador states that she does not foresee needing surgery. She simply presents because she has been told that this would be a good thing to look into given the frequency of her symptoms. Lastly, she suggest that her father was diagnosed with a hiatal hernia and underwent surgery for this diagnosis. Below is recapitulated from patient's prior visit for ease of review: Presents for repeat FNA with Afirma testing given findings of atypia in her lastFNA. She states that overall she feels very well, however, she reports that shehas been busy with preoperative testing as she is due for an orthopedic procedure in the near future. She also reports recent travel to [place] and tween these 2 commitments was the reason she had to cancel her recently scheduled EGD. She does report that she has had some improvements in her refluxsince transitioning to a different PPI. She lastly confirms that she has held her Plavix now for 10 days in anticipation of today's procedure. Patient is a 72-year-old female who presents for thyroid nodule. They are referred for surgical consultation from Dr. Ball. This was discovered incidentally during work-up for a number of mini strokes by Dr. Perkins, neurologist. They do experience difficulty with swallowing and Mrs. Salvador states that she seems to choke easy given examples of bread and coffee as being problematic. They do not complain of a new cough. They do appreciate new voice changes whichthey describe as hoarseness but this observation has not been made by patient's . They do not have a history of snoring/sleep apnea. Additionally, their weight has been stable and they do not have a history of weight gain/loss. There is no history of recent fatigue. They do have a history of heat intolerance and frequent sweating. Other symptoms include: Constipation (but patient states this has been present for her lifetime) and reflux which she states has been recently worse despite regular use of omeprazole. They do not have a family history of thyroid disorders or endocrinopathies. There [is/is no] history of prior radiation exposure. Previous work-up has included thyroid ultrasound?most recently from 12/01/2022. This identified a right thyroid lobe measuring 3.8 x 1.6 x 1.4 cm. The superiorpole of this thyroid lobe there is a 1.7 x 1.2 x 1.2 cm mixed solid cystic hypoechoic nodule with some punctate echogenic foci rated a TI-RADS 4 as well asa smaller 1.0 x 0.9 x 0.9 cm solid hypoechoic nodule in the mid thyroid that wasalso rated TI-RADS 4. The left thyroid lobe measured 3.9 x 1.4 x 1.1 cm to subcentimeter nodules were discussed in this lobe rated TI-RADS 1 and 3, respectively. Radiology recommended biopsy of patient's 1.7 cm nodule if not done previously. An FNA has not been performed. Patient is confirmed to have held her Plavix (prescribed for her history of CVA) 5 days ago in anticipation of probable biopsy. Other tests include: TSH 1.9 and free T40.93 (07/14/2022). ROS General General: No weight change, appetite, fatigue, colon cancer, breast cancer or weakness HEENT HEENT: No difficulty swallowing, eye injury, eye surgery, swollen glands or hoarseness Endo Endocrine: No thyroid disease, diabetes mellitus, thyroid cancer, Hair loss, heat intolerance or cold intolerance Skin Skin: No rash or changing moles Breast Breast: No left breast lump, right breast lump, nipple discharge, breast pain, abnormal mammogram, abnormal US or breast enlargement Musc Musculoskeletal: Yes arthritis; No back problems, rheumatoid arthritis, gout or joint pain Cardio Cardiovascular: No murmur, pacemaker, heart disease, atrial fibrillation, high blood pressure, heart attack, heart stent, palpitations, shortness of breat withexertion or chest pain Psych Psychiatric: No depression, anxiety or hearing voices Resp Respiratory: No shortness of breath, No sleep apnea, No cough, No COPD, No asthma, No emphysema and No wheezing Gastro Gastrointestinal: No abdominal pain, No nausea or vomiting, No diarrhea, No constipation, No blood in stool, Yes acid reflux, No hemorrhoids, No ulcers, No gallbladder problem and No black,tarry stools Guillermo Hematologic: No blood thinners, No blood disorders, No bleeding, No anemia and No blood clots Neuro Neurologic: No system reviewed and no additional complaints, except as documented, No as per HPI, No abnormal gait, No abnormal hearing, No abnormal movements, No abnormal speech, No behavioral changes, No burning sensations, No confusion, No convulsions, No disequilibrium, No dizziness, No localized weakness, No frequent falls, No headache(s), No lack of coordination, No loss ofvision, No memory loss, Yes numbness, No other visual disturbances, No radicularpain, No restless legs, No sensory deficit, No syncope, Yes tingling, No tremor(s), No weakness and No other Exam Const General: cooperative, healthy appearing and comfortable GI Inspection: normal to inspection Assessment and Plan Assessment and Plan (1) GERD (gastroesophageal reflux disease): Status: Acute Comment: Patient with refractory reflux disease despite now transitioning to pantoprazole. She describes symptoms occurring with a daily frequency. She is additionally using Tums and famotidine. She has identified food triggers, but on apologetic lately states that she still likes these foods and simply tries tominimize their effect by avoiding them closer to bedtime. We had a rather lengthy conversation around reflux disease and pathologic states that lead to them. Specifically, addressed the scenario of a hiatal hernia and used a picture diagrams to facilitate this conversation. Regarding procedure plans, I shared with her the opportunity could be taken to perform a pH probe placement, however, she seems very reluctant to consider any additional surgery and simply is most interested in being screened for Basilio's esophagus. Therefore we willplan for diagnostic EGD alone with biopsy. Patient is on Plavix and will need to have this held for 7 days preprocedure to minimize her bleeding risk with these biopsies. Plan: Diagnostic EGD with 7-day Plavix hold prior to procedure in anticipation of biopsies I have examined the patient the following changes are noted: Mrs. Salvador contactedour office to inform us that she would like to pursue pH probe monitoring so this amendment was made. Additionally, she confirms that she has had significantly worsening reflux symptoms since discontinuing her PPI medication. Lastly, she confirms that she has remained off her Plavix for over 7 days in anticipation of biopsies during today's procedure. She denies any further questions. Her abdominal exam is benign. Will now proceed to endoscopy suite for planned EGD with pH probe placement as discussed in greater detail above 08/06/23723 <Electronically signed by Michele Roach MD> Cosigner Signature (if applicable): CC: Dr. Stefani Ball MD; Dr. Michele Roach MD~ Signed [facility] Work Phone: 1(428) [phone] Procedure [facility] 08-06-2023 Procedure [facility]11-08-2023 Note Discharge Instructions Thank you for allowing [facility] to assist you with your healthcare needs. The following is importantdischarge information regarding your hospital visit. Your Care Team [facility] Your Diagnosis Anemia CVA (cerebral vascular accident) HTN (hypertension) Status post total left knee replacement What to do next Follow Up Appointments Follow Up with MARC PRIEST PA-C, Orthopedic When 03/02/2023 02:00 PM EST Why: This is your post-op appointment. Follow-up as scheduled. Where: [facility] [address] [place] [id number]- Follow Up with [facility] Physical Therapy When 02/20/2023 10:00 AM EST Why: This is your first physical therapy appointment. Follow-up as scheduled. Where: [facility] [place], [place] [phone] Follow Up with STEFANI BALL MD When In 2 weeks Why: Please call to schedule an appointment to go over your labwork results. Where: [address] [place] [phone]- The Following Treatments Have Been Ordered for [...] and or supplements as they may interact withur home medications. What How Much When Why Instructions Last Dose New acetaminophen (Tylenol) 1,000 Milligram by mouth Three (3) times a day not to exceed 3000 mg/ day New docusate-senna (Senokot S 50 mg-8.6 mg oral tablet) 2 tab(s) by mouth Two (2) times a day Duration: 5 Days Take until first bowel movement, then as needed Pickup at [facility] New ferrous sulfate (ferrous sulfate 325 mg (65 mg elemental iron) oral tablet) 1 tab(s) by mouth Two (2) times a day Duration: 21 Days Pickup at [facility] [address] New oxyCODONE (oxyCODONE 5 mg oral tablet ( IMMEDIATE release )) See instructions Status post total left knee replacement 1-2 tab(s) Oral q4h Pickup at [facility] [address] Changed aspirin 81 Milligram by mouth [...] tab(s) by mouth Every day Pharmacy Information [facility] [address]: [address] [place], [place] [phone] What How Much When Comments Stop Taking [...] Plus, Senna S, Senna-Time S, Senokot S, SenoSol- SS, Stool Softener + Stimulant Laxative, Stool Softener [...] bedtime. Docusate and senna should cause you tohave a bowel movement within 6 to 12 [...] laxative or other stool softener that may containingredients similar to docusate or senna. What are [...] may report side effects to FDA at [phone]. What other drugs will affect docusate and senna? Other drugs may affect docusate and senna, including prescription and wrwy-xmx-afrfjts medicines, vitamins, and herbal products. Tell your doctor about all your current medicines and any medicine youstart or stop using. Where can I get more information? Your pharmacist can provide more information about docusate and senna. Remember, keep this and all other medicines out of the reach of children, never share your medicines with others, and use this medication only for the indication prescribed. Every effort has been made to ensure that the information provided by [employer]. ('[employer]') is accurate, up-to-date, and complete, but no guarantee is made to that effect. Drug information contained herein may be time sensitive. [employer] information has been compiled for use by healthcare practitioners and consumers in the [place] and therefore [employer] does not warrant that uses outside of the [place] are appropriate, unless specifically indicated otherwise. [employer] drug information does not endorse drugs, diagnose patients or recommend therapy. [employer] drug information isan informational resource designed to assist licensed healthcare practitioners in caring for their p atients and/or to serve consumers viewing this service as a supplement to, and not a substitute for, the expertise, skill, knowledge and judgment of healthcare practitioners. The absence of a warningfor a given drug or drug combination in no way should be construed to indicate that the drug or drug combination is safe, effective or appropriate for any given patient. [employer] does not assume any responsibility for any aspect of healthcare administered with the aid of information [facility] provides. The information contained herein is not intended to cover all possible uses, directions, precautions, warnings, drug interactions, allergic reactions, or adverse effects. If you have questions about the drugs you are taking, check with your doctor, nurse or pharmacist. Copyright 4558-5754 [employer]. Version: 5.01. Revision Date: 11/17/2022. ferrous sulfate (FARE us SUL fate) Feosol, Kingsley-In-Opal, FeroSul, Fe-Tiffani Drops, Infant and Toddler Iron Drops, Slow Fe, Slow Iron, SlowRelease Iron What is the most important information [...] of iron can be fatal to a youngchild. Overdose symptoms may include severe vomiting, coughing [...] may report side effects to FDA at 1-292-IMY-0874. What other drugs will affect ferrous sulfate? Take your ferrous sulfate dose 2 to 6 hours before or after taking any of the following: an antacid; an antibiotic; or a laxative. This list is not complete. Other drugs may affect ferrous sulfate, including prescription and ctod-ymu-cjydkmo medicines, vitamins, and herbal products. Not all [...] to ensure that the information provided by [employer]. ('[employer]') is accurate, up-to-date, and complete, but no guarantee is made to that effect. Drug information contained herein may be time sensitive. [employer] information has been compiled for use by healthcare practitioners and consumers in the [place] and therefore [employer] does not warrant that uses outside of the [place] are appropriate, unless specifically indicated otherwise. [employer]'s drug information does not endorse drugs, diagnose patients or recommend therapy. [employer]'s drug information isan informational resource designed to assist licensed healthcare practitioners in caring for their p atients and/or to serve consumers viewing this service as a supplement to, and not a substitute for, the expertise, skill, knowledge and judgment of healthcare practitioners. The absence of a warningfor a given drug or drug combination in no way should be construed to indicate that the drug or drug combination is safe, effective or appropriate for any given patient. [facility] does not assume any responsibility for any aspect of healthcare administered with the aid of information [facility] provides. The information contained herein is not intended to cover all possible uses, directions, precautions, warnings, drug interactions, allergic reactions, or adverse effects. If you have questions about the drugs you are taking, check with your doctor, nurse or pharmacist. Copyright 0514-1308 [facility]. Version: 7.02. Revision Date: 12/31/2022. oxycodone (ox [...] The extended-release form of oxycodone is for qpcnww-aar-ihzos treatment of pain and should not be [...] people under 18. OxyContin should not be givento a child younger than 11 years old. [...] someone with a history of drug abuse oraddiction. MISUSE CAN CAUSE ADDICTION, OVERDOSE, OR . Keep the medication in a place where others cannot get to it. Selling or giving away opioid medicine is against the law. Stop taking all other takyix-lme-xwkdz opioid pain medicines when you start taking extended-releaseoxycodone. Take oxycodone with food. Swallow the capsule or tablet whole to avoid exposure to a potentially fatal overdose. Do not crush, chew, break, open, or dissolve. If you cannot swallow a capsule whole, open it and sprinkle the medicine into a spoonful of puddingor applesauce. Swallow the mixture right away without [...] suddenly. Follow your doctor's instructions about tapering yourdose. Store at room temperature, away from heat, [...] where to locate a drug take-back disposal program.If there is no take-back program, flush the [...] Poison Help line at . An opioid overdosecan be fatal, especially in a child or [...] health department. Make sure any person caring foryou knows where you keep naloxone and how [...] if you have slow breathing with long pauses,blue colored lips, or if you are hard [...] may report side effects to FDA at 6-525-YAM-1867. What other drugs will affect oxycodone? You [...] drugs may affect oxycodone. This includes prescription mqmztaz-qfr-ncdehhc medicines, vitamins, and herbal products. Not all [...] to ensure that the information provided by [employer]. ('[employer]') is accurate, up-to-date, and complete, but no guarantee is made to that effect. Drug information contained herein may be time sensitive. [employer] information has been compiled for use by healthcare practitioners and consumers in the [place] and therefore [employer] does not warrant that uses outside of the [place] are appropriate, unless specifically indicated otherwise. [employer] drug information does not endorse drugs, diagnose patients or recommend therapy. [employer] drug information isan informational resource designed to assist licensed healthcare practitioners in caring for their p atients and/or to serve consumers viewing this service as a supplement to, and not a substitute for, the expertise, skill, knowledge and judgment of healthcare practitioners. The absence of a warningfor a given drug or drug combination in no way should be construed to indicate that the drug or drug combination is safe, effective or appropriate for any given patient. [employer] does not assume any responsibility for any aspect of healthcare administered with the aid of information [employer] provides. The information contained herein is not intended to cover all possible uses, directions, precautions, warnings, drug interactions, allergic reactions, or adverse effects. If you have questions about the drugs you are taking, check with your doctor, nurse or pharmacist. Copyright 8048-7163 [employer]. Version: 16.01. Revision Date: 11/14/2022. Education Materials [facility] Post-operative Instructions PLEASE FOLLOW [facility] POST-OP INSTRUCTIONS GIVEN WATCH FOR SIGNS OF INFECTION: call the office ([phone]) if experencing any of the following: (Usually [...] on your follow up instructions. Form: 338A (40803) R: 08/17 Additional Information VACCINATE! IT SAVES LIVES! Members of the community who have not yet received the COVID-19 vaccine and would like to receive it can visit one of [facility] vaccine clinics. There are many vaccine clinic locations within the [facility]. For locations and available times, please visit https://[email or web address].[place].gov/. It is important to note that some COVID mobile vaccine clinics are held outdoors and may be canceled in rainy or stormy conditions. To learn more about pediatric vaccinations (ages 5-11), we invite you to visit the [facility] webpage. https://www.[facility].org/pages/6970-Rcqec-Zlnnxiyxyds-Iufblaanvn-Eqzez-Vvx stions.htmlTo learn more about the COVID-19 vaccine, we invite you to visit the CDC website for a list of frequently asked questions.https://www.cdc.gov/coronavirus/2019-ncov/vaccines/faq.html [employer] Patient Portal Access Instructions: Stay connected with your healthcare team and access your personal medical information anytime with the [employer] Patient Portal. Please follow the directions below to create your [employer] account: 1.Access the email account you provided upon registration to the hospital/physician office.2.Look for an invitation email from [facility].3.Open the email and access the invitation link: AcceptInvitation to [employer]4.Fill in the required dudley to create your account. To access your account, visit [employer]/Rent the [employer]. Click the blue button labeled Access Patient Portal and then log in with the username and password that you created in the steps above. You will be able to view your test results, lab results, a summary of your visits, upcoming appointments and more. There is also a convenient messaging option where you can send secure messages to your p rovider. In addition, you will have the ability to download any documents or summaries to your computer and/or send the information securely to a physician. Remember that your healthcare information is confidential, so carefully consider who you will allowto register on the [employer] Patient Portal for access to your information. You can also access the [employer] Patient Portal on the [facility] aamir. Simply click on Patient Portal and then log into your account. If you would like to receive a full copy of your medical records, please contact the [facility] Medical Records Department by calling [phone], Thursday through Thursday between 8 a.m. and 4:30 p.m. HOW TO SAFELY DISPOSE OF PRESCRIPTION MEDICATIONS Please use one of the following methods to safely dispose of your unused medications. 1.Use a drug disposal kit: the drug disposal pouch allows you to safely discard your old and unuseddrugs. Ask your nurse to give you one when you are discharged.2.Visit a local take-back location: Many local pharmacies and police departments have programs that collect old and unwanted prescriptiondrugs. Call your local pharmacy or go to http://Habeas.OpenSearchServer/3S7Pd5i to find one close to you.3.Make use of household items: Use cat litter or old coffee grounds to dispose medications if other options arenot available. Mix your drugs with these household products, seal them in an airtight container andthrow it into the garbage. Call [facility]: [phone] to be sure your drugs can be [...] a CHART COPY. Signatures Patient Education Materials [facility] Post-op Instruction 11/2016 (01528) Medication Leaflets docusate and senna, ferrous sulfate, oxycodone My discharge plan and instructions have been reviewed and explained to me and I,CASEANABELLA understand my current condition and have read and understand these discharge instructions. I have received a written copy of the plan/instructions. If I have questions, I am aware that I should contact my doctor. Patient/Uat Tester Signature: Date/Time: Relationship to Patient: Witness Name/Signature: Date/Time: [facility]11-08-2023 Note Date of Service 02/18/2023 Reason for Consultation Medical management Referring Physician Dr. Rogerio Phillips History of Present Illness Patient is a 72-year-old female, who follows with Dr. Stefani Ball with a past medical history significant for hypertension, hyperlipidemia, and CVA, presented to [facility] for elective left total knee arthroplasty by Dr. Rogerio Phillips. Patient states that she has had left knee pain for quite some time secondary to osteoarthritis. She attempted conservative measures such as therapy, medication, injections without any significant improvement in her pain. She felt that the pain wasimpacting her quality and opted to proceed with surgical intervention yesterday. Patient is seen postoperatively on the medical surgical unit this morning resting in bed. Introduced self and role of TRAILER PARK MANAGER hospitalist in her postoperative course. Aware that hospitalist service was consulted for medicalmanagement. States that she is doing well this morning and denies any significant pain in her left knee. Further denies any fevers, chills, cough, shortness of breath, chest pain, abdominal pain, or dysuria. Does report some mild nausea this morning but states this is not unusual for her whenever sh e has had to take narcotics. Labs and vital signs reviewed. Physical exam was unremarkable. Patientaware that her creatinine was mildly elevated this [...] a bit over pre-op labs. Patient to follow- up with PCP to havethis rechecked. 3. HTN (hypertension) Chronic *Continue current [...] at this time. Please feel free to re- consult service if there are any changes in [...] tests, reviewing lab results, vital sign trends, medicalhistory, reviewing medications and ordering home medications, examining patient, collaborating withphysician, and documenting in chart. Problem List/Past Medical [...] Domestic Concerns: None. Living situation: Home/Independent. Primary Pension Fund Manager: Self. Lives In: Multilevel home, 2nd floor bedroom, 2nd floor bathroom. Current Home Treatments None. Professional Skilled Services or Special Community Resources None. Spouse Name: Jovon. Marital Status: ., 01/29/2023 Nutrition/Health Type of [...] by CRISTA HILTON on 02/18/2023 01:38 PM [facility]11-08-2023 Hospital Discharge instructions Patient Education 02/18/2023 08:04:48 5 - [facility] Post-op Instruction 11/2016 (44610) [facility] Post-operative Instructions PLEASE FOLLOW [facility] POST-OP INSTRUCTIONS GIVEN WATCH FOR SIGNS OF INFECTION: call the office ([phone]) if experencing any of the following: (Usually [...] on your follow up instructions. Form: 338A (41765) R: 08/17 Follow Up Care 12/22/2022 12:41:06 With:STEFANI BALL MD Address: [address] [place], [place] [id number]- When:Within 2 Week(s) Comments:Please call to schedule an appointment to go over your labwork results. With:[facility] Address: [address] [place] [address] [phone] When:02/20/2023 10:00:00 Comments:This is your first physical therapy appointment. Follow-up as scheduled. With:MARC PRIEST PA-C, Orthopedic Address: [facility] [address] [place] [address] [place] [address]- When:03/02/2023 14:00:00 Comments:This is your post-op appointment. Follow-up as scheduled. [facility] 11-08-2023 Note Date of Service February 18, 2023 Subjective The patient was sitting in bed upon examination. Patient denies any chest pain, shortness of breath, dizziness, lightheadedness, nausea or vomiting, or calf pain. No adverse overnight events. Pain has been controlled on medications. Patient overall is doing well this morning. Her pain is controlledtoday. Patient has had some drop in hemoglobin [...] discussed the possibility of constipation with this medi cation. If she has any difficulty with this medication she will contact her office and we discussedreducing it down to possibly once daily. Lab [...] would like her medications E scribed to [facility] in [facility]. She will follow-up per postoperative instructions. Upon discharge if there are any concerns or questions she will contact our office. Patient is doing well orthopedically this morning. Casewas discussed with medicine. If she is cleared from medical standpoint okay for discharge home today orthopedically as long as she tolerates therapy and pain is controlled. I have reviewed the [place] Automated Rx Reporting System (OARRS) report for this patient for refill pattern and other prescriber involvement as part of the appropriate surveillance for the provision ofacute and chronic controlled medications. The report was requested and reviewed on the date of thisentry, and was considered in the prescribing process This dictation was created using voice recognition software. Phonetic and/or grammatical errors mayexist. Digitally Signed by MARC PRIEST PA-C on 02/18/2023 08:03 AM [facility]11-07-2023 Note ORIGINAL EXAMINATION: TWO XRAY VIEWS OF [...] Sign Date: 02/17/2023 3:46:20 PM Ordering Provider: ROGERIO [facility]11-07-2023 Anesthesiology Consult note Patient: ANABELLA SALVADOR Age: 72 years Sex: Female : 1950 Associated Diagnoses: None Author: JOANNA FELDMAN SENIOR DIRECTOR FINANCE-OUTBOUND CALL CENTER REPRESENTATIVE Preoperative Information Time of last food or [...] 2.5 mg 25 mg 5 mL, Other, [facility] ropivacaine 25 mg + ketorolac 15 mg + epinephrine 0.3 mg + morphine 2.5 mg 25 mg 5 mL, Other, [facility] tranexamic acid 2,000 mg 20 mL, Topical [...] been selected or recorded. Procedure history: Hysterectomy ([id number]). Total disc arthroplasty (artificial disc), anterior approach, including discectomy with end plate preparation (includes osteophytectomy for nerve root or spinal cord decompression and microdissection); single interspace, cervical (49971). Arthroscopy of knee ([id number]). Comments: 01/29/2023 14:59 LUANNET Dottie Alvarado RN bilateral Biopsy of thyroid ([id number]). Nasal septoplasty ([id number]). Cardiac catheterization (86127607). Excision of cataract ([id number]). Comments: 01/29/2023 14:59 Dottie Solis RN bilateral Implantation of insertable loop recorder ([id number]). Social History Social & Psychosocial Habits Alcohol 02/17/2023 Use: Never Substance Abuse 02/17/2023 Use: Never Tobacco 02/17/2023 Tobacco Use: Never (less than 100 in l Home/Environment 02/17/2023 Domestic Concerns None Living situation: Home/Independent Primary Pension Fund Manager: Self Lives In 2nd floor bathroom, 2nd floor bedroom, Multilevel home Current Home Treatments None Special Services and Community Resources None Spouse Name Jovon Marital Status of Patient if Patient Independent [...] Resp Rate L 13br/min (FEB 17 10:47) ELU200 mmHg (FEB 17 10:47) DBP74 mmHg (FEB 17 10:47) BMI30.63 (FEB 17 11:02) Measurements from flowsheet : Measurements 02/17/2023 11:02 EST Body Mass Index 30.63 kg/m2 02/17/2023 10:47 EST Height 160 cm Height in inches 63 inch(es) Admission Weight 78.4 kg Weight Lbs 172.5 lb Irving Body Weight 52.38 kg Pain assessment: Pain [...] SN - GCD - Post-operative Diagnosis UNILATERAL POST- TRAUMATIC OSTEOARTHRITIS, LEFT KNEE. EFFUSION, LEFT KNEE. VARUS [...] Surgeon SN - CAt - Role Performed OUTBOUND CALL CENTER REPRESENTATIVE SN - CAt - Role Performed Physician Corner Trimmer Operator SN - CAt - Role Performed Simulation Specialist 1 SN - CAt - Role Performed Scrub 1 SN - CAt - Role Performed Violin Teacher 1 SN - CAt - Role Performed Behavioral Psychologist 02/17/2023 11:56 EST SN - Preop - [...] EST Designated Person #1 We May Share PHI Jovon Salvador [phone] Designated Person #1 Relationship Spouse Designated Person #2 We May Share PHI Quincy Nicolas [phone] Designated Person #2 Relationship Daughter Privacy Restrictions [...] No Advanced Directives Yes Advance Directive Type [place] Durable Power of Management Architect for [facility] [place], [place] Declaration (Living Will) Advance Directive Location [...] after midnight, No makeup, No jewelry, Responsible Democrat, Aware of surgery location, Pre-op education done, 2 bottles CHG wash with instructions given, Instructed to takeordered medications, Total Joint Replacement/Colorectal Book Given, Anesthesia block education provided SN - Preprocedure Comments Spoke with patient, Verbalizes/Nonverbally indicates understanding, Other: Pantoprazole, Pregabalin Barriers to Learning None evident Teaching Method Explanation, Printed materials Preferred Spoken Language Jordanian Preferred Written Language Jordanian Teaching Evaluation No further teaching needed Safety [...] Allergies Yes Anesthesia Extension Set Applied Yes General Production Manager On Yes Consent Form Signed Yes Patient Dressed In Hospital gown Pre-op Preparation Glasses removed CHG Preoperative Wash/Wipe Night before procedure, Day of procedure Preop Nasal Swab Povidone-Iodine CHG Skin Prep Completed for Eligible Surgery History & Physical Update On Chart Yes History & Physical On Chart Yes Belongings At Bedside Cell phone, Senior Product Integrity Engineer, Glasses, Pajamas, Shoes, Socks Personal Home Medications [...] Weight 78.4 kg Weight Lbs 172.5 lb Irving Body Weight 52.38 kg Temperature Temporal Artery [...] Quadrants Present Skin Temperature Warm Skin Description [place], Normal for ethnicity, Dry Skin Integrity Intact [...] up, Non-Slip footwear . Assessment and Plan [place] Society of Anesthesiologists (ASA) physical status classification: Class III. Anesthetic Preoperative Plan Premedication: intravenous. Anesthetic technique: MAC, Regional, Spinal. Induction: intravenously. Maintenance airway: Mask. Regional: Spinal, Adductor Canal Block. Postoperative pain management: Per surgeon. Risks discussed: nausea, vomiting, headache, sore throat, dental injury, hypotension, allergic reaction, serious complications. Informed consent: signed by patient. Digitally Signed by JOANNA FELDMAN on 02/17/2023 12:24 PM [facility]10-19-2023 Note ORIGINAL EXAMINATION: CT OF THE LEFT [...] Partial medial meniscal body extrusion. There is rmgb-qe-tuwolglz lateral femorotibial compartment joint space narrowing with [...] Sign Date: 01/29/2023 3:01:14 PM Ordering Provider: [facility]09-25-2023 Procedure [facility] Future App[facility]ments [facility] Evaluation noteNo assessment information available [facility] Work Phone: Evaluation note* Diagnosis Onset Date Resolution Status Alteration in vision acute Hypercholesterolemia acute Hypertension chronic [facility] Work Phone: Evaluation note* Diagnosis Onset Date Resolution Status Breast mass, right acute Breast mass, right acute CVA (cerebral vascular accident) acute Multiple thyroid nodules acu te Patent foramen ovale acute Hyperlipidemia chronic [facility] Work Phone: Evaluation note* Diagnosis Onset Date Resolution Status Breast mass, right acute Breast mass, right acute CVA (cerebral vascular accident) acute Patent foramen ovale acute Hyperlipidemia chronic Multiple thyroid nodules chr onic [facility] Work Phone: Evaluation note* Diagnosis Onset Date Resolution Status CVA (cerebral vascular accident) acute Patent foramen ovale acute Hyperlipidemia chronic Multiple thyroid nodules chr onic CVA (cerebral vascular accident) acute Patent foramen ovale acute [facility] Work Phone: Evaluation note* Diagnosis Onset Date Resolution Status CVA (cerebral vascular accident) acute CVA (cerebral vascular accident) acute Polyneuropathy acute Hyperlipidemia chronic [facility] Work Phone: Evaluation note* Diagnosis Onset Date Resolution Status CVA (cerebral vascular accident) acute CVA (cerebral vascular accident) acute Polyneuropathy acute Hyperlipidemia chronic GERD (gastroesophageal reflux disease) acute Multiple thyroid nodules chr [facility] Work Phone: Evaluation note* Diagnosis Onset Date Resolution Status CVA (cerebral vascular accident) acute Polyneuropathy acute Hyperlipidemia chronic GERD (gastroesophageal reflux disease) acute Multiple thyroid nodules chr [facility] Work Phone: Evaluation note* Diagnosis Onset Date Resolution Status CVA (cerebral vascular accident) acute Hyperlipidemia chronic Polyneuropathy chronic GERD (gastroesophageal reflux disease) acute Multiple thyroid nodules chr onic Polyneuropathy chronic Fatigue noneactive Multiple thyroid nodules chr onic Fatigue acute [facility] Work Phone: Evaluation note* Diagnosis Onset Date Resolution Status Polyneuropathy chronic Fatigue noneactive Multiple thyroid nodules chr onic Fatigue acute Fatigue acute Fatigue acute [facility] Work Phone: Evaluation note* Diagnosis Onset Date Resolution Status Fatigue acute Fatigue acute Fatigue acute GERD (gastroesophageal reflux disease) acute Fatigue acute [facility] Work Phone: Evaluation note* Diagnosis Onset Date Resolution Status Fatigue acute Fatigue acute GERD (gastroesophageal reflux disease) acute Fatigue acute [facility] Work Phone: Hospital course Narrative No data available for this section [facility] Hospital Discharge instructions No data available for this section [facility] Progress note No data available for this section [facility] Reason for referral (narrative)[facility] Chief Complaint and Reason for Visit Chief Complaint OSTEOPOROSIS, SCREEN ING Chief Complaint OSTEOPOROSIS, SCREEN ING VISUAL FIELD DEFECT ACUTE CVA Reason for Visit Alteration in vision Hypercholesterolemia Hypertension Chief Complaint OSTEOPOROSIS, SCREEN ING VISUAL FIELD DEFECT ACUTE CVA ACUTE CVA Reason for Visit Alteration in vision Hypercholesterolemia Hypertension Chief Complaint OSTEOPOROSIS, SCREEN ING VISUAL FIELD DEFECT ACUTE CVA ACUTE CVA ACUTE CVA Reason for Visit Alteration in vision Hypercholesterolemia Hypertension Chief Complaint BREAST MASS R BREAST BIRADS 4 right breast biopsy Cerebrovascular accident NODULES/ ADD EORDER LABS Reason for Visit Breast mass, right Breast mass, right CVA (cerebral vascular accident) Multiple thyroid nodules Patent foramen ovale Hyperlipidemia Chief Complaint BREAST MASS R BREAST BIRADS 4 right breast biopsy Cerebrovascular accident NODULES/ ADD EORDER LABS Transient visual loss, bilateral EORDER Reason for Visit Breast mass, right Breast mass, right CVA (cerebral vascular accident) Patent foramen ovale Hyperlipidemia Multiple thyroid nodules Chief Complaint R BREAST BIRADS 4 right breast biopsy Cerebrovascular accident NODULES/ ADD EORDER LABS Transient visual loss, bilateral EORDER Reason for Visit Breast mass, right Breast mass, right CVA (cerebral vascular accident) Patent foramen ovale Hyperlipidemia Multiple thyroid nodules Chief Complaint Cerebrovascular acci dent NODULES/ ADD EORDER LABS Transient visual loss, bilateral EORDER PFO ON ECHO CVA Reason for Visit CVA (cerebral vascul ar accident) Patent foramen ovale Hyperlipidemia Multiple thyroid nodules CVA (cerebral vascular accident) Patent foramen ovale Chief Complaint Cerebrovascular acci dent NODULES/ ADD EORDER LABS Transient visual loss, bilateral EORDER PFO ON ECHO CVA CEBRIAL INFRACTION/ PFO REPEAT 6 MONTHS: RT BREAST MASS, HX BIOPSY Reason for Visit CVA (cerebral vascul ar accident) Patent foramen ovale Hyperlipidemia Multiple thyroid nodules CVA (cerebral vascular accident) Patent foramen ovale Chief Complaint Transient visual los s, bilateral EORDER PFO ON ECHO CVA CEBRIAL INFRACTION/ PFO REPEAT 6 MONTHS: RT BREAST MASS, HX BIOPSY 4 M FU Reason for Visit CVA (cerebral vascul ar accident) CVA (cerebral vascular accident) Polyneuropathy Hyperlipidemia Chief Complaint PFO ON ECHO CVA CEBRIAL INFRACTION/ PFO REPEAT 6 MONTHS: RT BREAST MASS, HX BIOPSY 4 M FU NONTOXIC SINGLE THYROID NODULE Thyroid Nodules THYROID NODULE RIGHT Reason for Visit CVA (cerebral vascul ar accident) CVA (cerebral vascular accident) Polyneuropathy Hyperlipidemia GERD (gastroesophageal reflux disease) Multiple thyroid nodules Chief Complaint CEBRIAL INFRACTION/ PFO REPEAT 6 MONTHS: RT BREAST MASS, HX BIOPSY 4 M FU NONTOXIC SINGLE THYROID NODULE Thyroid Nodules THYROID NODULE RIGHT PAIN, BURNING PAIN, BURNING PAIN, BURNING PAIN, BURNING Reason for Visit CVA (cerebral vascul ar accident) Polyneuropathy Hyperlipidemia GERD (gastroesophageal reflux disease) Multiple thyroid nodules Chief Complaint 4 M FU NONTOXIC SINGLE THYROID NODULE Thyroid Nodules THYROID NODULE RIGHT PAIN, BURNING PAIN, BURNING PAIN, BURNING PAIN, BURNING BIOPSY AND B12 EORDERS AFFIRMA THYROID BIOPSY R THYROID NODULES B12 LEFT KNEE PAIN Reason for Visit CVA (cerebral vascul ar accident) Hyperlipidemia Polyneuropathy GERD (gastroesophageal reflux disease) Multiple thyroid nodules Polyneuropathy Fatigue Multiple thyroid nodules Fatigue Chief Complaint BIOPSY AND B12 EORDERS AFFIRMA THYROID BIOPSY R THYROID NODULES B12 LEFT KNEE PAIN 4 M FU B12 inject Pacer Check Remote B12 inject sinusitis Reason for Visit Polyneuropathy Fatigue Multiple thyroid nodules Fatigue Fatigue Fatigue Chief Complaint Pacer Check Remote B12 inject sinusitis B12 inject B12 INJECTION Discuss EGD Pacer Check Remote B12 inject Reason for Visit Fatigue Fatigue Fatigue GERD (gastroesophageal reflux disease) Fatigue Chief Complaint sinusitis B12 inject B12 INJECTION Discuss EGD Pacer Check Remote B12 inject Reason for Visit Fatigue Fatigue GERD (gastroesophageal reflux disease) Fatigue Chief Complaint Admit Date 1 Y FU February 25, 2024 10:51am EORDER March 01, 2024 8:13am B12 inject March 15, 2024 1 2:49pm Pacer Check Remote April 08, 2024 2:48am B12 April 28, 2024 9 :59am discuss surgery May 02, 2024 8 :15am GERD IV HYDRATION May 23 8:35am 3 M FU May 23, 2024 10:26am B12 inject June 02, 2024 8:43am E-ORDER June 02, 2024 8:58am Cerebral infarction, unspecified June 112024 7:17am DISCUSS FUNDOPLICATION June 20, 2024 8:52am Reason for Visit Admit Date Fatigue February 25, 2024 10:51am Hyperlipidemia February 25, 2024 10:51am Polyneuropathy February 25, 2024 10:51am CVA (cerebral vascular accident) Novembe r 2023 10:51am Fatigue March 15, 2024 1 2:49pm Fatigue April 28, 2024 9 :59am Epigastric pain May 02, 2024 8 :15am Family history of colon cancer in mother May 02, 2024 8:15am GERD (gastroesophageal reflux disease) J anuary 2024 8:15am Hematochezia May 02, 2024 8 :15am Constipation May 02, 2024 8 :15am Hiatal hernia with GERD May 02 8:15am Personal history of colonic polyps Janua ry 2024 8:15am Fatigue May 23, 2024 10:26am Obesity May 23, 2024 10:26am Hyperlipidemia May 23, 2024 10:26am Polyneuropathy May 23, 2024 10:26am CVA (cerebral vascular accident) 2024 10:26am Fatigue June 02, 2024 8:43am Epigastric pain June 20, 2024 8:5 2am GERD (gastroesophageal reflux disease) M arch 2024 8:52am Hiatal hernia with GERD June 20, 2024 8:52am Chief Complaint Admit Date GERD IV HYDRATION May 23 8:35am 3 M FU May 23, 2024 10:26am B12 inject June 02, 2024 8:43am E-ORDER June 02, 2024 8:58am Cerebral infarction, unspecified June 112024 7:17am DISCUSS FUNDOPLICATION June 20, 2024 8:52am B12 inject July 04, 2024 10: 50am Pacer Check Remote July 08, 2024 2:4 2am B12 inject August 04, 2024 10: 48am DISCUSS LAP LORA August 12, 2024 8:20am SCREENING August 30, 2024 6:54a m B12 inject September 06, 2024 11:23 am Reason for Visit Admit Date Fatigue May 23, 2024 10:26am Obesity May 23, 2024 10:26am Hyperlipidemia May 23, 2024 10:26am Polyneuropathy May 23, 2024 10:26am CVA (cerebral vascular accident) r 2024 10:26am Fatigue June 02, 2024 8:43am Epigastric pain June 20, 2024 8:5 2am GERD (gastroesophageal reflux disease) M arch 2024 8:52am Hiatal hernia with GERD June 20, 2024 8:52am Fatigue July 04, 2024 10: 50am Fatigue August 04, 2024 10: 48am GERD (gastroesophageal reflux disease) M 2024 8:20am Hiatal hernia with GERD August 12, 2024 8: 20am Reason for Visit Admit Date Fatigue May 23, 2024 10:26am Obesity May 23, 2024 10:26am Hyperlipidemia May 23, 2024 10:26am Polyneuropathy May 23, 2024 10:26am CVA (cerebral vascular accident) Februar y 2024 10:26am Fatigue June 02, 2024 8:43am Epigastric pain June 20, 2024 8:5 2am GERD (gastroesophageal reflux disease) M arch 2024 8:52am Hiatal hernia with GERD June 20, 2024 8:52am Fatigue July 04, 2024 10: 50am Fatigue August 04, 2024 10: 48am GERD (gastroesophageal reflux disease) M ay 2024 8:20am Hiatal hernia with GERD August 12, 2024 8: 20am Fatigue September 06, 2024 11:23 am Chief Complaint Admit Date GERD IV HYDRATION May 23 8:35am 3 M FU May 23, 2024 10:26am B12 inject June 02, 2024 8:43am E-ORDER June 02, 2024 8:58am Cerebral infarction, unspecified June 112024 7:17am DISCUSS FUNDOPLICATION June 20, 2024 8:52am B12 inject July 04, 2024 10: 50am Pacer Check Remote July 08, 2024 2:4 2am B12 inject August 04, 2024 10: 48am DISCUSS LAP LORA August 12, 2024 8:20am SCREENING August 30, 2024 6:54a m PREOP August 30, 2024 8:06a m B12 inject September 06, 2024 11:23 am Laparoscopic, Lora Fundoplication Hita l hernia r September 09, 2024 5:55am Laparoscopic, Lora Fundoplication Hita l hernia r September 09, 2024 6:52am Chief Complaint Admit Date GERD IV HYDRATION May 23 8:35am 3 M FU May 23, 2024 10:26am B12 inject June 02, 2024 8:43am E-ORDER June 02, 2024 8:58am Cerebral infarction, unspecified June 112024 7:17am DISCUSS FUNDOPLICATION June 20, 2024 8:52am B12 inject July 04, 2024 10: 50am Pacer Check Remote July 08, 2024 2:4 2am B12 inject August 04, 2024 10: 48am DISCUSS LAP LORA August 12, 2024 8:20am SCREENING August 30, 2024 6:54a m PREOP August 30, 2024 8:06a m B12 inject September 06, 2024 11:23 am Laparoscopic, Lora Fundoplication Hita l hernia r September 09, 2024 5:55am Laparoscopic, Lora Fundoplication Hita l hernia r September 09, 2024 6:52am ABORTED LAP LORA 09-09September 20, 2024 9:17am Chief Complaint Admit Date B12 inject June 02, 2024 8:43am E-ORDER June 02, 2024 8:58am Cerebral infarction, unspecified June 112024 7:17am DISCUSS FUNDOPLICATION June 20, 2024 8:52am B12 inject July 04, 2024 10: 50am Pacer Check Remote July 08, 2024 2:4 2am B12 inject August 04, 2024 10: 48am DISCUSS LAP LORA August 12, 2024 8:20am SCREENING August 30, 2024 6:54a m PREOP August 30, 2024 8:06a m Pacer Check Remote September 04, 2024 3:42a m B12 inject September 06, 2024 11:23 am Laparoscopic, Lora Fundoplication Hita l hernia r September 09, 2024 5:55am Laparoscopic, Lora Fundoplication Hita l hernia r September 09, 2024 6:52am ABORTED LAP LORA 09-09September 20, 2024 9:17am Reason for Visit Admit Date Fatigue June 02, 2024 8:43am Epigastric pain June 20, 2024 8:5 2am GERD (gastroesophageal reflux disease) M 2024 8:52am Hiatal hernia with GERD June 20, 2024 8:52am Fatigue July 04, 2024 10: 50am Fatigue August 04, 2024 10: 48am GERD (gastroesophageal reflux disease) ay 2024 8:20am Hiatal hernia with GERD August 12, 2024 8: 20am Fatigue September 06, 2024 11:23 am History of laparoscopy September 20, 2024 9 :17am Chief Complaint Admit Date Cerebral infarction, unspecified June 112024 7:17am DISCUSS FUNDOPLICATION June 20, 2024 8:52am B12 inject July 04, 2024 10: 50am Pacer Check Remote July 08, 2024 2:4 2am B12 inject August 04, 2024 10: 48am DISCUSS LAP LORA August 12, 2024 8:20am SCREENING August 30, 2024 6:54a m PREOP August 30, 2024 8:06a m Pacer Check Remote September 04, 2024 3:42a m B12 inject September 06, 2024 11:23 am Laparoscopic, Lora Fundoplication Hita l hernia r September 09, 2024 5:55am Laparoscopic, Lora Fundoplication Hita l hernia r September 09, 2024 6:52am ABORTED LAP LORA 09-09September 20, 2024 9:17am OVERDUE FOR OV/SEE NOTES ALSO October 04, 2024 8:55am Reason for Visit Admit Date Epigastric pain June 20, 2024 8:5 2am GERD (gastroesophageal reflux disease) [facility] 2024 8:52am Hiatal hernia with GERD June 20, 2024 8:52am Fatigue July 04, 2024 10: 50am Fatigue August 04, 2024 10: 48am GERD (gastroesophageal reflux disease) 2024 8:20am Hiatal hernia with GERD August 12, 2024 8: 20am Fatigue September 06, 2024 11:23 am History of laparoscopy September 20, 2024 9 :17am CVA (cerebral vascular accident) October 042024 8:55am Patent foramen ovale October 04, 2024 8:5 5am Chief Complaint Admit Date DISCUSS FUNDOPLICATION June 20, 2024 8:52am B12 inject July 04, 2024 10: 50am Pacer Check Remote July 08, 2024 2:4 2am B12 inject August 04, 2024 10: 48am DISCUSS LAP LORA August 12, 2024 8:20am SCREENING August 30, 2024 6:54a m PREOP August 30, 2024 8:06a m Pacer Check Remote September 04, 2024 3:42a m B12 inject September 06, 2024 11:23 am Laparoscopic, Lora Fundoplication Hita l hernia r September 09, 2024 5:55am Laparoscopic, Lora Fundoplication Hita l hernia r September 09, 2024 6:52am ABORTED LAP LORA -September 20, 2024 9:17am OVERDUE FOR OV/SEE NOTES ALSO October 04, 2024 8:55am B12 inject October 13, 2024 9:58a m Chief Complaint Admit Date B12 inject July 04, 2024 10: 50am Pacer Check Remote July 08, 2024 2:4 2am B12 inject August 04, 2024 10: 48am DISCUSS LAP LORA August 12, 2024 8:20am SCREENING August 30, 2024 6:54a m PREOP August 30, 2024 8:06a m Pacer Check Remote September 04, 2024 3:42a m B12 inject September 06, 2024 11:23 am Laparoscopic, Lora Fundoplication Hita l hernia r September 09, 2024 5:55am Laparoscopic, Lora Fundoplication Hita l hernia r September 09, 2024 6:52am ABORTED LAP LORA -September 20, 2024 9:17am OVERDUE FOR OV/SEE NOTES ALSO October 04, 2024 8:55am B12 inject October 13, 2024 9:58a m 5 mo fu October 27, 2024 10:3 6am Reason for Visit Admit Date Fatigue July 04, 2024 10: 50am Fatigue August 04, 2024 10: 48am GERD (gastroesophageal reflux disease) M 2024 8:20am Hiatal hernia with GERD August 12, 2024 8: 20am Fatigue September 06, 2024 11:23 am History of laparoscopy September 20, 2024 9 :17am CVA (cerebral vascular accident) October 042024 8:55am Patent foramen ovale October 04, 2024 8:5 5am Fatigue October 13, 2024 9:58a m Chief Complaint Admit Date B12 inject August 04, 2024 10: 48am DISCUSS LAP LORA August 12, 2024 8:20am SCREENING August 30, 2024 6:54a m PREOP August 30, 2024 8:06a m Pacer Check Remote September 04, 2024 3:42a m B12 inject September 06, 2024 11:23 am Laparoscopic, Lora Fundoplication Hita l hernia r September 09, 2024 5:55am Laparoscopic, Lora Fundoplication Hita l hernia r September 09, 2024 6:52am ABORTED LAP LORA 09-09September 20, 2024 9:17am OVERDUE FOR OV/SEE NOTES ALSO October 04, 2024 8:55am B12 inject October 13, 2024 9:58a m 5 mo fu October 27, 2024 10:3 6am B12 inject November 14, 2024 11: 28am Reason for Visit Admit Date Fatigue August 04, 2024 10: 48am GERD (gastroesophageal reflux disease) M ay 2024 8:20am Hiatal hernia with GERD August 12, 2024 8: 20am Fatigue September 06, 2024 11:23 am History of laparoscopy September 20, 2024 9 :17am CVA (cerebral vascular accident) October 042024 8:55am Patent foramen ovale October 04, 2024 8:5 5am Fatigue October 13, 2024 9:58a m Fatigue October 27, 2024 10:3 6am Obesity October 27, 2024 10:3 6am Hyperlipidemia October 27, 2024 10:3 6am Polyneuropathy October 27, 2024 10:3 6am CVA (cerebral vascular accident) October 272024 10:36am Advance Directives No Advanced Directives Records Found Advance Directive Response Recorded Date/ Time Living Will No June 13, 2014 8:07am Power of Management Architect No June 13 5 8:07am Advance Directive Response Recorded Date/ Time Name of Medical Power of Management Architect lenore case (h usband) January 10, 2022 4:57pm Living Will Yes January 10, 2022 4:57pm Power of Management Architect Yes December 4:57pm Advance Directive Response Recorded Date/ Time Name of Medical Power of Management Architect Jovon Case January 10, 2022 9:09pm Living Will Yes January 10, 2022 9:09pm Power of Management Architect Yes December 9:09pm Advance Directive Response Recorded Date/ Time Living Will Yes January 10, 2022 9:09pm Power of Management Architect Yes December 9:09pm Advance Directive Response Recorded Date/ Time Advance Directives on File Yes September 22, 2022 10:09am Name of Medical Power of Management Architect Jovon villafana September 22, 2022 10:09am Advance Directives Yes September 22 10:09am Living Will Yes September 22, 2022 10:09am Power of Management Architect Yes September 22 10:09am Advance Directive Response Recorded Date/ Time Name of Medical Power of Management Architect unknown February 19, 2023 9:33pm Advance Directives Yes September 22 9:09am Living Will Yes February 19 9:33pm Power of Management Architect Yes February 19, 2023 9:33pm Advance Directive Response Recorded Date/ Time Advance Directives Yes September 22 10:09am Living Will No August 03, 2023 9:36am Power of Management Architect No August 02 9:36am Advance Directive Response Recorded Date/ Time Living Will Yes February 19 10:33pm Power of Management Architect Yes February 19, 2023 10:33pm Living Will No August 03, 2023 9:36am Power of Management Architect No August 02 9:36am Living Will Yes May 16 1:22pm Power of Management Architect Yes May 16, 2024 1:22pm Name of Medical Power of Management Architect SPOUSE May 16, 2024 1:22pm Advance Directives Yes September 22 10:09am Advance Directive Response Recorded Date/ Time Living Will Yes May 16 1:22pm Do you have a Healthcare Power of Management Architect? Yes May 16, 2024 1:22pm Name of Medical Power of Management Architect SPOUSE May 16, 2024 1:22pm Advance Directives Yes September 22 10:09am Advance Directive Response Recorded Date/ Time Living Will Yes May 16 1:22pm Do you have a Healthcare Power of Management Architect? Yes May 16, 2024 1:22pm Name of Medical Power of Management Architect SPOUSE May 16, 2024 1:22pm Do you have a Healthcare Power of Management Architect? Yes August 25, 2024 2:30pm Name of Medical Power of Management Architect August 25, 2024 2:30pm Advance Directives Yes September 22 10:09am Advance Directive Response Recorded Date/ Time Do you have a Healthcare Power of Management Architect? Yes August 25, 2024 2:30pm Name of Medical Power of Management Architect August 25, 2024 2:30pm Advance Directives Yes September 22 10:09am Family History No Family History Records Found Relationship Condition Age at Onset Recorded Date/T rony Not Specified Alcoholism Unknown Malignant neoplasm Unknown Relationship Condition Age at Onset Recorded Date/T rony Not Specified Alcoholism Unknown Malignant neoplasm Unknown mother Hypertension Unknown High blood cholesterol Unknown grandmother Cerebrovascular accident (CVA) Unknown Summary Purpose Additional Source Comments Goals (unrecognized section and content) Goals may be documented in a n alternate sectionGoals may be documented in an alternate sectionGoals may be documented in an alternate sectionGoals may be documented in an alternate sectionGoals may be documented in an alternate sectionGoals may be documented in an alternate sectionGoals may be documented in an alternate sectionGoals may be documented in an alternate sectionGoals may be documented in an alternate sectionGoals may be documented in an alternate sectionGoals may be documented in an alternate section No data available for this section No data available for this section No data available for this sectionGoals may be documented in an alternate sectionGoals may be documented in an alternate section Care Teams (unrecognized sec tion and content) Team Status: Active Member Role Status Dates Dr. Stefani Ball MD Family Provider Active Dr. Stefani Ball MD Primary Care Provider Active Team Status: Inactive Member Role Status Dates Dr. Stefani Ball MD Primary Care Provider, Referrin g Provider Active Dr. Ada Sadler MD Attending Provider Active Team Status: Inactive Member Role Status Dates Dr. Stefani Ball MD Primary Care Provider, Referrin g Provider Active Dr. Shiva Perkins MD Attending Provider Active Team Status: Inactive Member Role Status Dates Dr. Stefani Ball MD Primary Care Provider, Attendin g Provider Active Team Status: Inactive Member Role Status Dates Dr. Stefani Ball MD Primary Care Provider Active Dr. Ada Sadler MD Attending Provider Active Team Status: Inactive Member Role Status Dates Dr. Stefani Ball MD Primary Care Provider Active Dr. Shiva Perkins MD Attending Provider, Referring Provider Active Team Status: Active Member Role Status Dates Dr. Stefani Ball MD Primary Care Provider Active Dr. Adam Bates MD Attending Provider, Refe rring Provider Active Team Status: Inactive Member Role Status Dates Dr. Stefani Ball MD Primary Care Provider Active Dr. Shashank Caban MD Attending Provider Active Team Status: Active Member Role Status Dates Dr. Stefani Ball MD Primary Care Provider Active Dr. Shiva Perkins MD Attending Provider, Referring Provider Active Team Status: Inactive Member Role Status Dates Dr. Stefani Ball MD Primary Care Provider, Referrin g Provider Active Dr. Noble Gloria MD Attending Provider Active Team Status: Active Member Role Status Dates Dr. Stefani Ball MD Primary Care Provider Active Dr. Gerardo Banerjee MD Attending Provider Active Team Status: Active Member Role Status Dates Dr. Stefani Ball MD Primary Care Provider Active Dr. Gerardo Banerjee MD Attending Provider Active Dr. Shiva Perkins MD Referring Provider Active Team Status: Active Member Role Status Dates Dr. Stefani Ball MD Primary Care Provider Active Dr. Noble Gloria MD Attending Provider Active Team Status: Inactive Member Role Status Dates Dr. Stefani Ball MD Primary Care Provider Active Dr. Ada Sadler MD Attending Provider, Referring Provider Active Team Status: Inactive Member Role Status Dates Dr. Stefani Ball MD Primary Care Provider Active Dr. Noble Gloria MD Attending Provider, Referring Pro vider Active Team Status: Active Member Role Status Dates Dr. Stefani Ball MD Primary Care Provider Active Dr. Noble Gloria MD Attending Provider, Referring Pro vider Active Team Status: Inactive Member Role Status Dates Dr. Stefani Ball MD Primary Care Provider, Referrin g Provider Active Dr. Michele Roach MD Attending Provider Active Team Status: Inactive Member Role Status Dates Dr. Stefani Ball MD Primary Care Prov ider, Attending Provider, Referring Provider Active Team Status: Inactive Member Role Status Dates Dr. Stefani Ball MD Primary Care Provider Active Dr. Michele Roach MD Attending Provider, Referring P rovider Active Team Status: Active Member Role Status Dates Dr. Stefani Ball MD Primary Care Provider Active Dr. Shiva Perkins MD Referring Provider, Other Pro vider Active Dr. Altagracia Linda MD Attending Provider Active Team Status: Active Member Role Status Dates Dr. Stefani Ball MD Primary Care Provider Active Dr. Shiva Perkins MD Referring Provider, Other Pro vider Active Dr. Kimo Mir DO Attending Provider Active Team Status: Inactive Member Role Status Dates Dr. Stefani Ball MD Primary Care Provider Active Dr. Se Valencia MD Emergency Provider Active Team Status: Inactive Member Role Status Dates Dr. Stefani Ball MD Primary Care Provider Active Dr. Se Valencia MD Attending Provider, Emergency Provider Active Team Status: Inactive Member Role Status Dates Dr. Stefani Ball MD Primary Care Provider Active Dr. Noble Gloria MD Attending Provider Active Team Status: Active Member Role Status Dates Dr. Stefani Ball MD Primary Care Provider, Referrin g Provider Active Dr. Michele Roach MD Attending Provider, Other Provi angelika Active Team Status: Active Member Role Status Dates Dr. Stefani Ball MD Primary Care Provider Active Team Status: Inactive Member Role Status Dates Dr. Stefani Ball MD Primary Care Provider Active Start: February 25, 2024 End: February 25, 2024 Dr. Stefani Ball MD Referring Provider Active Start: February 25, 2024 End: February 25, 2024 Dr. Shiva Perkins MD Attending Provider Active Start: February 25, 2024 End: February 25, 2024 Team Status: Inactive Member Role Status Dates Dr. Stefani Ball MD Primary Care Provider Active Start: March 01, 2024 End: March 01, 2024 Dr. Shiva Perkins MD Attending Provider Active Start: March 01, 2024 End: March 01, 2024 Dr. Shiva Perkins MD Referring Provider Active Start: March 01, 2024 End: March 01, 2024 Team Status: Inactive Member Role Status Dates Dr. Stefani Ball MD Primary Care Provider Active Start: March 15, 2024 End: March 15, 2024 Dr. Shiva Perkins MD Attending Provider Active Start: March 15, 2024 End: March 15, 2024 Dr. Shiva Perkins MD Referring Provider Active Start: March 15, 2024 End: March 15, 2024 Team Status: Inactive Member Role Status Dates Dr. Stefani Ball MD Primary Care Provider Active Start: April 08, 2024 End: April 08, 2024 Dr. Noble Gloria MD Attending Provider Active S tart: April 08, 2024 End: April 08, 2024 Dr. Noble Gloria MD Referring Provider Active S tart: April 08, 2024 End: April 08, 2024 Team Status: Inactive Member Role Status Dates Dr. Stefani Ball MD Primary Care Provider Active Start: April 28, 2024 End: April 28, 2024 Dr. Shiva Perkins MD Attending Provider Active Start: April 28, 2024 End: April 28, 2024 Dr. Shiva Perkins MD Referring Provider Active Start: April 28, 2024 End: April 28, 2024 Team Status: Inactive Member Role Status Dates Dr. Stefani Ball MD Primary Care Provider Active Start: May 02, 2024 End: May 02, 2024 Dr. Stefani Ball MD Referring Provider Active Start: May 02, 2024 End: May 02, 2024 Dr. Michele Roach MD Attending Provider Active Start: May 02, 2024 End: May 02, 2024 Team Status: Inactive Member Role Status Dates Dr. Stefani Ball MD Primary Care Provider Active Start: May 18, 2024 End: May 18, 2024 Dr. Stefani Ball MD Referring Provider Active Start: May 18, 2024 End: May 18, 2024 Dr. Michele Roach MD Attending Provider Active Start: May 18, 2024 End: May 18, 2024 Team Status: Active Member Role Status Dates Dr. Stefani Ball MD Primary Care Provider Active Start: May 18, 2024 Dr. Stefani Ball MD Referring Provider Active Start: May 18, 2024 Dr. Michele Roach MD Attending Provider Active Start: May 18, 2024 Dr. Michele Roach MD Other Provider Active Sta rt: May 18, 2024 Team Status: Inactive Member Role Status Dates Dr. Stefani Ball MD Primary Care Provider Active Start: May 20, 2024 End: May 20, 2024 Dr. Stefani Ball MD Referring Provider Active Start: May 20, 2024 End: May 20, 2024 Dr. Thompson Deluca MD Attending Provider Active Start: May 20, 2024 End: May 20, 2024 Team Status: Inactive Member Role Status Dates Dr. Stefani Ball MD Primary Care Provider Active Start: May 23, 2024 End: May 23, 2024 Dr. Michele Roach MD Attending Provider Active Start: May 23, 2024 End: May 23, 2024 Dr. Michele Roach MD Referring Provider Active Start: May 23, 2024 End: May 23, 2024 Team Status: Inactive Member Role Status Dates Dr. Stefani Ball MD Primary Care Provider Active Start: May 23, 2024 End: May 23, 2024 Dr. Stefani Ball MD Referring Provider Active Start: May 23, 2024 End: May 23, 2024 Dr. Shiva Perkins MD Attending Provider Active Start: May 23, 2024 End: May 23, 2024 Team Status: Inactive Member Role Status Dates Dr. Stefani Ball MD Primary Care Provider Active Start: June 02, 2024 End: June 02, 2024 Dr. Stefani Ball MD Referring Provider Active Start: June 02, 2024 End: June 02, 2024 Dr. Shiva Perkins MD Attending Provider Active Start: June 02, 2024 End: June 02, 2024 Team Status: Inactive Member Role Status Dates Dr. Stefani Ball MD Primary Care Provider Active Start: June 02, 2024 End: June 02, 2024 Dr. Shiva Perkins MD Attending Provider Active Start: June 02, 2024 End: June 02, 2024 Dr. Shiva Perkins MD Referring Provider Active Start: June 02, 2024 End: June 02, 2024 Team Status: Inactive Member Role Status Dates Dr. Stefani Ball MD Primary Care Provider Active Start: June 11, 2024 End: June 11, 2024 Dr. Shiva Perkins MD Attending Provider Active Start: June 11, 2024 End: June 11, 2024 Dr. Shiva Perkins MD Referring Provider Active Start: June 11, 2024 End: June 11, 2024 Team Status: Inactive Member Role Status Dates Dr. Stefani Ball MD Primary Care Provider Active Start: June 20, 2024 End: June 20, 2024 Dr. Stefani Ball MD Referring Provider Active Start: June 20, 2024 End: June 20, 2024 Dr. Michele Roach MD Attending Provider Active Start: June 20, 2024 End: June 20, 2024 Team Status: Inactive Member Role Status Dates Dr. Stefani Ball MD Primary Care Provider Active Start: July 04, 2024 End: July 04, 2024 Dr. Shiva Perkins MD Attending Provider Active Start: July 04, 2024 End: July 04, 2024 Dr. Shiva Perkins MD Referring Provider Active Start: July 04, 2024 End: July 04, 2024 Team Status: Inactive Member Role Status Dates Dr. Stefani Ball MD Primary Care Provider Active Start: July 08, 2024 End: July 08, 2024 Dr. Noble Gloria MD Attending Provider Active S tart: July 08, 2024 End: July 08, 2024 Dr. Noble Gloria MD Referring Provider Active S tart: July 08, 2024 End: July 08, 2024 Team Status: Inactive Member Role Status Dates Dr. Stefani Ball MD Primary Care Provider Active Start: August 04, 2024 End: August 04, 2024 Dr. Stefani Ball MD Referring Provider Active Start: August 04, 2024 End: August 04, 2024 Dr. Shiva Perkins MD Attending Provider Active Start: August 04, 2024 End: August 04, 2024 Team Status: Inactive Member Role Status Dates Dr. Stefani Ball MD Primary Care Provider Active Start: August 12, 2024 End: August 12, 2024 Dr. Stefani Ball MD Referring Provider Active Start: August 12, 2024 End: August 12, 2024 Dr. Michele Roach MD Attending Provider Active Start: August 12, 2024 End: August 12, 2024 Team Status: Active Member Role Status Dates Dr. Stefani Ball MD Primary Care Provider Active Start: August 30, 2024 Chelsea Chen TRAILER PARK MANAGER, TRAILER PARK MANAGER-C Attending Provider Active Start: August 30, 2024 Chelsea Chen TRAILER PARK MANAGER, TRAILER PARK MANAGER-C Referring Provider Active Start: August 30, 2024 Team Status: Inactive Member Role Status Dates Dr. Stefani Ball MD Primary Care Provider Active Start: September 06, 2024 End: September 06, 2024 Dr. Stefani Ball MD Referring Provider Active Start: September 06, 2024 End: September 06, 2024 Dr. Shiva Perkins MD Attending Provider Active Start: September 06, 2024 End: September 06, 2024 Team Status: Inactive Member Role Status Dates Dr. Stefani Ball MD Primary Care Provider Active Start: August 30, 2024 End: August 30, 2024 Chelsea Chen TRAILER PARK MANAGER, TRAILER PARK MANAGER-C Attending Provider Active Start: August 30, 2024 End: August 30, 2024 Chelsea Chen TRAILER PARK MANAGER, TRAILER PARK MANAGER-C Referring Provider Active Start: August 30, 2024 End: August 30, 2024 Team Status: Inactive Member Role Status Dates Dr. Stefani Ball MD Primary Care Provider Active Start: August 04, 2024 End: August 04, 2024 Dr. Shiva Perkins MD Attending Provider Active Start: August 04, 2024 End: August 04, 2024 Dr. Shiva Perkins MD Referring Provider Active Start: August 04, 2024 End: August 04, 2024 Team Status: Active Member Role Status Dates Dr. Stefani Ball MD Primary Care Provider Active Start: August 30, 2024 End: August 30, 2024 Dr. Noble Gloria MD Attending Provider Active S tart: August 30, 2024 End: August 30, 2024 Dr. Michele Roach MD Referring Provider Active Start: August 30, 2024 End: August 30, 2024 Team Status: Inactive Member Role Status Dates Dr. Stefani Ball MD Primary Care Provider Active Start: September 09, 2024 End: September 09, 2024 Dr. Michele Roach MD Attending Provider Active Start: September 09, 2024 End: September 09, 2024 Dr. Michele Roach MD Referring Provider Active Start: September 09, 2024 End: September 09, 2024 Dr. Reynaldo Ely MD Other Provider Active Sta rt: September 09, 2024 End: September 09, 2024 Team Status: Active Member Role Status Dates Dr. Stefani Ball MD Primary Care Provider Active Start: September 09, 2024 Dr. Michele Roach MD Attending Provider Active Start: September 09, 2024 Dr. Michele Roach MD Referring Provider Active Start: September 09, 2024 Dr. Michele Roach MD Other Provider Active Sta rt: September 09, 2024 Dr. Reynaldo Ely MD Other Provider Active Sta rt: September 09, 2024 Team Status: Inactive Member Role Status Dates Dr. Stefani Ball MD Primary Care Provider Active Start: September 20, 2024 End: September 20, 2024 Dr. Stefani Ball MD Referring Provider Active Start: September 20, 2024 End: September 20, 2024 Dr. Michele Roach MD Attending Provider Active Start: September 20, 2024 End: September 20, 2024 Team Status: Inactive Member Role Status Dates Dr. Stefani Ball MD Primary Care Provider Active Start: September 04, 2024 End: September 04, 2024 Dr. Noble Gloria MD Attending Provider Active S tart: September 04, 2024 End: September 04, 2024 Team Status: Inactive Member Role Status Dates Dr. Stefani Ball MD Primary Care Provider Active Start: September 04, 2024 End: September 04, 2024 Dr. Noble Gloria MD Attending Provider Active S tart: September 04, 2024 End: September 04, 2024 Dr. Noble Gloria MD Referring Provider Active S tart: September 04, 2024 End: September 04, 2024 Team Status: Inactive Member Role Status Dates Dr. Stefani Ball MD Primary Care Provider Active Start: October 04, 2024 End: October 04, 2024 Dr. Stefani Ball MD Referring Provider Active Start: October 04, 2024 End: October 04, 2024 Kassidy Varela TRAILER PARK MANAGER, TRAILER PARK MANAGER-C Attending Provider Active Start: October 04, 2024 End: October 04, 2024 Team Status: Active Member Role/Relationship Status Dates Dr. Stefani Ball MD Primary Care Provider Active Team Status: Inactive Member Role/Relationship Status Dates Dr. Stefani Ball MD Primary Care Provider Active Start: June 20, 2024 End: June 20, 2024 Dr. Stefani Ball MD Referring Provider Active Start: June 20, 2024 End: June 20, 2024 Dr. Michele Roach MD Attending Provider Active Start: June 20, 2024 End: June 20, 2024 Team Status: Inactive Member Role/Relationship Status Dates Dr. Stefani Ball MD Primary Care Provider Active Start: July 04, 2024 End: July 04, 2024 Dr. Shiva Perkins MD Attending Provider Active Start: July 04, 2024 End: July 04, 2024 Dr. Shiva Perkins MD Referring Provider Active Start: July 04, 2024 End: July 04, 2024 Team Status: Inactive Member Role/Relationship Status Dates Dr. Stefani Ball MD Primary Care Provider Active Start: July 08, 2024 End: July 08, 2024 Dr. Noble Gloria MD Attending Provider Active S tart: July 08, 2024 End: July 08, 2024 Dr. Noble Gloria MD Referring Provider Active S tart: July 08, 2024 End: July 08, 2024 Team Status: Inactive Member Role/Relationship Status Dates Dr. Stefani Ball MD Primary Care Provider Active Start: August 04, 2024 End: August 04, 2024 Dr. Shiva Perkins MD Attending Provider Active Start: August 04, 2024 End: August 04, 2024 Dr. Shiva Perkins MD Referring Provider Active Start: August 04, 2024 End: August 04, 2024 Team Status: Inactive Member Role/Relationship Status Dates Dr. Stefani Ball MD Primary Care Provider Active Start: August 12, 2024 End: August 12, 2024 Dr. Stefani Ball MD Referring Provider Active Start: August 12, 2024 End: August 12, 2024 Dr. Michele Roach MD Attending Provider Active Start: August 12, 2024 End: August 12, 2024 Team Status: Inactive Member Role/Relationship Status Dates Dr. Stefani Ball MD Primary Care Provider Active Start: August 30, 2024 End: August 30, 2024 Chelsea Chen TRAILER PARK MANAGER, TRAILER PARK MANAGER-C Attending Provider Active Start: August 30, 2024 End: August 30, 2024 Chelsea Chen TRAILER PARK MANAGER, TRAILER PARK MANAGER-C Referring Provider Active Start: August 30, 2024 End: August 30, 2024 Team Status: Active Member Role/Relationship Status Dates Dr. Stefani Ball MD Primary Care Provider Active Start: August 30, 2024 End: August 30, 2024 Dr. Noble Gloria MD Attending Provider Active S tart: August 30, 2024 End: August 30, 2024 Dr. Michele Roach MD Referring Provider Active Start: August 30, 2024 End: August 30, 2024 Team Status: Inactive Member Role/Relationship Status Dates Dr. Stefani Ball MD Primary Care Provider Active Start: September 04, 2024 End: September 04, 2024 Dr. Noble Gloria MD Attending Provider Active S tart: September 04, 2024 End: September 04, 2024 Dr. Noble Gloria MD Referring Provider Active S tart: September 04, 2024 End: September 04, 2024 Team Status: Inactive Member Role/Relationship Status Dates Dr. Stefani Ball MD Primary Care Provider Active Start: September 06, 2024 End: September 06, 2024 Dr. Shiva Perkins MD Attending Provider Active Start: September 06, 2024 End: September 06, 2024 Dr. Shiva Perkins MD Referring Provider Active Start: September 06, 2024 End: September 06, 2024 Team Status: Inactive Member Role/Relationship Status Dates Dr. Stefani Ball MD Primary Care Provider Active Start: September 09, 2024 End: September 09, 2024 Dr. Michele Roach MD Attending Provider Active Start: September 09, 2024 End: September 09, 2024 Dr. Michele Roach MD Referring Provider Active Start: September 09, 2024 End: September 09, 2024 Dr. Reynaldo Ely MD Other Provider Active Sta rt: September 09, 2024 End: September 09, 2024 Team Status: Active Member Role/Relationship Status Dates Dr. Stefani Ball MD Primary Care Provider Active Start: September 09, 2024 Dr. Michele Roach MD Attending Provider Active Start: September 09, 2024 Dr. Michele Roach MD Referring Provider Active Start: September 09, 2024 Dr. Michele Roach MD Other Provider Active Sta rt: September 09, 2024 Dr. Reynaldo Ely MD Other Provider Active Sta rt: September 09, 2024 Team Status: Inactive Member Role/Relationship Status Dates Dr. Stefani Ball MD Primary Care Provider Active Start: September 20, 2024 End: September 20, 2024 Dr. Stefani Ball MD Referring Provider Active Start: September 20, 2024 End: September 20, 2024 Dr. Mihcele Roach MD Attending Provider Active Start: September 20, 2024 End: September 20, 2024 Team Status: Inactive Member Role/Relationship Status Dates Dr. Stefani Ball MD Primary Care Provider Active Start: October 04, 2024 End: October 04, 2024 Dr. Stefani Ball MD Referring Provider Active Start: October 04, 2024 End: October 04, 2024 Kassidy Varela NP, TRAILER PARK MANAGER-C Attending Provider Active Start: October 04, 2024 End: October 04, 2024 Team Status: Inactive Member Role/Relationship Status Dates Dr. Stefani Ball MD Primary Care Provider Active Start: October 13, 2024 End: October 13, 2024 Dr. Stefani Ball MD Referring Provider Active Start: October 13, 2024 End: October 13, 2024 Dr. Shiva Perkins MD Attending Provider Active Start: October 13, 2024 End: October 13, 2024 Team Status: Inactive Member Role/Relationship Status Dates Dr. Stefani Ball MD Primary Care Provider Active Start: July 04, 2024 End: July 04, 2024 Dr. Shiva Perkins MD Attending Provider Active Start: July 04, 2024 End: July 04, 2024 Dr. Shiva Perkins MD Referring Provider Active Start: July 04, 2024 End: July 04, 2024 Team Status: Inactive Member Role/Relationship Status Dates Dr. Stefani Ball MD Primary Care Provider Active Start: July 08, 2024 End: July 08, 2024 Dr. Noble Gloria MD Attending Provider Active S tart: July 08, 2024 End: July 08, 2024 Dr. Noble Gloria MD Referring Provider Active S tart: July 08, 2024 End: July 08, 2024 Team Status: Inactive Member Role/Relationship Status Dates Dr. Stefani Ball MD Primary Care Provider Active Start: August 04, 2024 End: August 04, 2024 Dr. Shiva Perkins MD Attending Provider Active Start: August 04, 2024 End: August 04, 2024 Dr. Shiva Perkins MD Referring Provider Active Start: August 04, 2024 End: August 04, 2024 Team Status: Inactive Member Role/Relationship Status Dates Dr. Stefani Ball MD Primary Care Provider Active Start: August 12, 2024 End: August 12, 2024 Dr. Stefani Ball MD Referring Provider Active Start: August 12, 2024 End: August 12, 2024 Dr. Michele Roach MD Attending Provider Active Start: August 12, 2024 End: August 12, 2024 Team Status: Inactive Member Role/Relationship Status Dates Dr. Stefani Ball MD Primary Care Provider Active Start: August 30, 2024 End: August 30, 2024 Chelsea Chen TRAILER PARK MANAGER, TRAILER PARK MANAGER-C Attending Provider Active Start: August 30, 2024 End: August 30, 2024 Chelsea Chen TRAILER PARK MANAGER, TRAILER PARK MANAGER-C Referring Provider Active Start: August 30, 2024 End: August 30, 2024 Team Status: Active Member Role/Relationship Status Dates Dr. Stefani Ball MD Primary Care Provider Active Start: August 30, 2024 End: August 30, 2024 Dr. Noble Gloria MD Attending Provider Active S tart: August 30, 2024 End: August 30, 2024 Dr. Michele Roach MD Referring Provider Active Start: August 30, 2024 End: August 30, 2024 Team Status: Inactive Member Role/Relationship Status Dates Dr. Stefani Ball MD Primary Care Provider Active Start: September 04, 2024 End: September 04, 2024 Dr. Noble Gloria MD Attending Provider Active S tart: September 04, 2024 End: September 04, 2024 Dr. Noble Gloria MD Referring Provider Active S tart: September 04, 2024 End: September 04, 2024 Team Status: Inactive Member Role/Relationship Status Dates Dr. Stefani Ball MD Primary Care Provider Active Start: September 06, 2024 End: September 06, 2024 Dr. Shiva Perkins MD Attending Provider Active Start: September 06, 2024 End: September 06, 2024 Dr. Shiva Perkins MD Referring Provider Active Start: September 06, 2024 End: September 06, 2024 Team Status: Inactive Member Role/Relationship Status Dates Dr. Stefani Ball MD Primary Care Provider Active Start: September 09, 2024 End: September 09, 2024 Dr. Michele Roach MD Attending Provider Active Start: September 09, 2024 End: September 09, 2024 Dr. Michele Roach MD Referring Provider Active Start: September 09, 2024 End: September 09, 2024 Dr. Reynaldo Ely MD Other Provider Active Sta rt: September 09, 2024 End: September 09, 2024 Team Status: Active Member Role/Relationship Status Dates Dr. Stefani Ball MD Primary Care Provider Active Start: September 09, 2024 Dr. Michele Roach MD Attending Provider Active Start: September 09, 2024 Dr. Michele Roach MD Referring Provider Active Start: September 09, 2024 Dr. Michele Roach MD Other Provider Active Sta rt: September 09, 2024 Dr. Reynaldo Ely MD Other Provider Active Sta rt: September 09, 2024 Team Status: Inactive Member Role/Relationship Status Dates Dr. Stefani Ball MD Primary Care Provider Active Start: September 20, 2024 End: September 20, 2024 Dr. Stefani Ball MD Referring Provider Active Start: September 20, 2024 End: September 20, 2024 Dr. Michele Roach MD Attending Provider Active Start: September 20, 2024 End: September 20, 2024 Team Status: Inactive Member Role/Relationship Status Dates Dr. Stefani Ball MD Primary Care Provider Active Start: October 04, 2024 End: October 04, 2024 Dr. Stefani Ball MD Referring Provider Active Start: October 04, 2024 End: October 04, 2024 Ksasidy Varela TRAILER PARK MANAGER, TRAILER PARK MANAGER-C Attending Provider Active Start: October 04, 2024 End: October 04, 2024 Team Status: Inactive Member Role/Relationship Status Dates Dr. Stefani Ball MD Primary Care Provider Active Start: October 13, 2024 End: October 13, 2024 Dr. Stefani Ball MD Referring Provider Active Start: October 13, 2024 End: October 13, 2024 Dr. Shiva Perkins MD Attending Provider Active Start: October 13, 2024 End: October 13, 2024 Team Status: Inactive Member Role/Relationship Status Dates Dr. Stefani Ball MD Primary Care Provider Active Start: October 27, 2024 End: October 27, 2024 Dr. Stefani Ball MD Referring Provider Active Start: October 27, 2024 End: October 27, 2024 Dr. Shiva Perkins MD Attending Provider Active Start: October 27, 2024 End: October 27, 2024 Team Status: Inactive Member Role/Relationship Status Dates Dr. Stefani Ball MD Primary Care Provider Active Start: August 04, 2024 End: August 04, 2024 Dr. Shiva Perkins MD Attending Provider Active Start: August 04, 2024 End: August 04, 2024 Dr. Shiva Perkins MD Referring Provider Active Start: August 04, 2024 End: August 04, 2024 Team Status: Inactive Member Role/Relationship Status Dates Dr. Stefani Ball MD Primary Care Provider Active Start: August 12, 2024 End: August 12, 2024 Dr. Stefani Ball MD Referring Provider Active Start: August 12, 2024 End: August 12, 2024 Dr. Michele Roach MD Attending Provider Active Start: August 12, 2024 End: August 12, 2024 Team Status: Inactive Member Role/Relationship Status Dates Dr. Stefani Ball MD Primary Care Provider Active Start: August 30, 2024 End: August 30, 2024 Chelsea Chen TRAILER PARK MANAGER, TRAILER PARK MANAGER-C Attending Provider Active Start: August 30, 2024 End: August 30, 2024 Chelsea Chen TRAILER PARK MANAGER, TRAILER PARK MANAGER-C Referring Provider Active Start: August 30, 2024 End: August 30, 2024 Team Status: Active Member Role/Relationship Status Dates Dr. Stefani Ball MD Primary Care Provider Active Start: August 30, 2024 End: August 30, 2024 Dr. Noble Gloria MD Attending Provider Active S tart: August 30, 2024 End: August 30, 2024 Dr. Michele Roach MD Referring Provider Active Start: August 30, 2024 End: August 30, 2024 Team Status: Inactive Member Role/Relationship Status Dates Dr. Stefani Ball MD Primary Care Provider Active Start: September 04, 2024 End: September 04, 2024 Dr. Noble Gloria MD Attending Provider Active S tart: September 04, 2024 End: September 04, 2024 Dr. Noble Gloria MD Referring Provider Active S tart: September 04, 2024 End: September 04, 2024 Team Status: Inactive Member Role/Relationship Status Dates Dr. Stefani Ball MD Primary Care Provider Active Start: September 06, 2024 End: September 06, 2024 Dr. Shiva Perkins MD Attending Provider Active Start: September 06, 2024 End: September 06, 2024 Dr. Shiva Perkins MD Referring Provider Active Start: September 06, 2024 End: September 06, 2024 Team Status: Inactive Member Role/Relationship Status Dates Dr. Stefani Ball MD Primary Care Provider Active Start: September 09, 2024 End: September 09, 2024 Dr. Michele Roach MD Attending Provider Active Start: September 09, 2024 End: September 09, 2024 Dr. Michele Roach MD Referring Provider Active Start: September 09, 2024 End: September 09, 2024 Dr. Reynaldo Ely MD Other Provider Active Sta rt: September 09, 2024 End: September 09, 2024 Team Status: Active Member Role/Relationship Status Dates Dr. Stefani Ball MD Primary Care Provider Active Start: September 09, 2024 Dr. Michele Roach MD Attending Provider Active Start: September 09, 2024 Dr. Michele Roach MD Referring Provider Active Start: September 09, 2024 Dr. Michele Roach MD Other Provider Active Sta rt: September 09, 2024 Dr. Reynaldo Ely MD Other Provider Active Sta rt: September 09, 2024 Team Status: Inactive Member Role/Relationship Status Dates Dr. Stefani Ball MD Primary Care Provider Active Start: September 20, 2024 End: September 20, 2024 Dr. Stefani Ball MD Referring Provider Active Start: September 20, 2024 End: September 20, 2024 Dr. Michele Roach MD Attending Provider Active Start: September 20, 2024 End: September 20, 2024 Team Status: Inactive Member Role/Relationship Status Dates Dr. Stefani Ball MD Primary Care Provider Active Start: October 04, 2024 End: October 04, 2024 Dr. Stefani Ball MD Referring Provider Active Start: October 04, 2024 End: October 04, 2024 Kassidy Varela TRAILER PARK MANAGER, TRAILER PARK MANAGER-C Attending Provider Active Start: October 04, 2024 End: October 04, 2024 Team Status: Inactive Member Role/Relationship Status Dates Dr. Stefani Ball MD Primary Care Provider Active Start: October 13, 2024 End: October 13, 2024 Dr. Stefani Ball MD Referring Provider Active Start: October 13, 2024 End: October 13, 2024 Dr. Shiva Perkins MD Attending Provider Active Start: October 13, 2024 End: October 13, 2024 Team Status: Inactive Member Role/Relationship Status Dates Dr. Stefani Ball MD Primary Care Provider Active Start: October 27, 2024 End: October 27, 2024 Dr. Stefani Ball MD Referring Provider Active Start: October 27, 2024 End: October 27, 2024 Dr. Shiva Perkins MD Attending Provider Active Start: October 27, 2024 End: October 27, 2024 Team Status: Inactive Member Role/Relationship Status Dates Dr. Stefani Ball MD Primary Care Provider Active Start: November 14, 2024 End: November 14, 2024 Dr. Stefani Ball MD Referring Provider Active Start: November 14, 2024 End: November 14, 2024 Dr. Shiva Perkins MD Attending Provider Active Start: November 14, 2024 End: November 14, 2024 INFORMATION SOURCE (unrecogn ized section and content) DATE CREATED AUTHOR 03/14/2023 [facility] DATE CREATED AUTHOR AUTHOR'S ORGANIZ ATION 11/16/2024 [facility] FOR RECORDS PERTAINING TO PATIENTS WHO ARE [...] BE BASED ON THE PRIMARY CLINICAL RECORDS. [employer] [facility] provides no warranty or guarantee of the accuracy or completeness of information in this document.
== END | disposition home or self-care (01) ==
LOC: MTLAB 10:10
PROVIDERS: Referring Provider Psychiatry & Neurology Neurology; Visit Provider Psychiatry & Neurology Neurology
DX: E78.5 Hyperlipidemia, unspecified (principal); R73.9 Hyperglycemia, unspecified
CPT/HCPCS: 36415; 80061; 80076; 83036